=== PATIENT | female | born 1955 | race Caucasian/White ===

== ENCOUNTER 2016-04-18 09:16 | Day surgery (SDC) | payer MEDICAID, SELFPAY ==
[2016-04-18 09:39] VITALS: BP 150/84; PULSE 82; RESP 20; TEMP 36.8; O2SAT 97; BMI 29.1
[2016-04-18] MEDS: MethylPREDNISolone Acetate 80 MG/ML Vial (10:32)
[2016-04-18] MEDS: Bupivacaine 0.25% 30 ML Vial (10:32)
[2016-04-18 10:40] VITALS: BP 138/76; BP 150/84; PULSE 74; RESP 16; TEMP 37.1; O2SAT 100
[2016-04-18 10:45] VITALS: BP 127/68; BP 150/84; PULSE 71; RESP 16; O2SAT 98
[2016-04-18 10:50] VITALS: BP 125/66; BP 150/84; PULSE 75; RESP 16; O2SAT 98
--- NOTE | 2016-04-18 10:50 | RAD_ITS ---
STUDY: SACROILIAC JOINT INJECTION. REASON FOR EXAM: Female, 60 years old. Chronic low back pain. FLUOROSCOPY TIME (if supplied): (0:14) minutes/seconds TECHNIQUE: Bilateral sacroiliac joint injection was performed by the pain management physician. COMPARISON: None. FINDINGS: Imaging provided for bilateral sacroiliac joint injection. RAD/S-I Jts 3 or More Views IMPRESSION: Imaging provided for bilateral iliac joint injection. Electronically Signed: Tae Perez MD at 13:20 EST Tel [phone], Service support [phone],
[2016-04-18 10:53] VITALS: BP 126/75; BP 150/84; PULSE 71; RESP 16; TEMP 37.4; O2SAT 96
[2016-04-18 12:29] VITALS: BP 150/84
--- NOTE | 2016-04-18 16:37 | OP_ITS ---
DATE OF SERVICE: 04/18/2016 DATE OF SERVICE: April 18, 2016 ATTENDING PHYSICIAN: Jose Guadalupe Judge M.D. PROCEDURE: Bilateral sacroiliac joint steroid injection under fluoroscopy guidance. PREOPERATIVE DIAGNOSES: Sacroiliitis and sacroiliac joint dysfunction. POSTOPERATIVE DIAGNOSES: Sacroiliitis and sacroiliac joint dysfunction. ANESTHESIA: MAC. COMPLICATIONS: None. BLOOD LOSS: Minimal. PROCEDURE IN DETAIL: History and physical today was reviewed. Risks and benefits of the procedure were explained. The patient understood, agreed to our procedure and informed consent was obtained. IV inserted per routine protocol. The patient was taken to the operating room, placed in the prone position with a pillow positioned underneath the abdomen. The lower back and buttock area was prepped and draped in a sterile fashion using iodine x3. Under fluoroscopy guidance, on AP view, the bilateral SI joints were visualized. The skin and subcutaneous tissues were anesthetized with approximately 3 mL of 1% lidocaine using a 25-gauge regular needle. Under direct visualization with fluoroscopy at approximately 15-degree angle, starting on the left SI ending on the right SI using a 22-gauge 3-1/2-inch spinal needle, the needle was advanced via the skin. The tip of the needle was maneuvered and directed towards the inferior one-third of the posterior SI joint. Once the tip of the needle was at the vicinity of the joint after negative aspiration of blood with CSF and confirmation of AP as well as oblique view, a total of 8 mL of preservative-free 0.25% Marcaine with 80 mg of Depo-Medrol was injected in divided doses between both levels. The patient experienced no signs or symptoms of intrathecal, intravascular injection. The patient experienced no paraesthesia. The procedure was completed without any apparent difficulty, any complication. The patient appeared to tolerate well. ASSESSMENT AND PLAN: This is a 60-year-old female with sacroiliitis and sacroiliac joint dysfunction, status post bilateral sacroiliac joint steroid injection under fluoroscopy guidance. The patient will continue her current medications. The patient will follow up in approximately 2 weeks for possible repeat of the procedure if indicated. Jose Guadalupe Judge MD T: NTS JOB: [id number]
== END 2016-04-18 12:31 | disposition home or self-care (01) ==
PROVIDERS: Family Provider Family Medicine; PCP Family Medicine; Visit Provider Anesthesiology Pain Medicine
DX: M46.1 Sacroiliitis, not elsewhere classified (principal); M51.36 Other intervertebral disc degeneration, lumbar region; K21.9 Gastro-esophageal reflux disease without esophagitis
CPT/HCPCS: 01992; 27096; 20610; 72202; 77002; J7120

== ENCOUNTER → 2017-10-02 07:54 | Outpatient (CLI) | payer MEDICAID, SELFPAY ==
[2017-10-02 10:24] LABS: Absolute Lymphocyte Count 3.22 X10^3/ul (0.83-4.51); Absolute Neutrophil Count 4.1 X10^3/uL (2.0-7.7); Basophil# 0.08 X10^3/uL; Basophil% 0.9 % (0-1); Eosinophils% 4.7 % (0-5); Hematocrit 40.1 % (37-47); Hemoglobin 12.8 g/dl (12.0-15.0); Lymphocyte # 3.22 X10^3/ul (4.0); Lymphocyte % 37.9 % (19-41); Mean Corp Hgb Conc 31.9 g/gl (32-36); Mean Corpuscular Volume 97.1 fL (81-99); Mean Platelet Vol. 11.5 fl (6.2-12.0); Monocyte# 0.66 X10^3/uL; Monocyte% 7.8 % (0-10); Neutrophil # 4.12 X10^3/uL (2.7-7.7); Neutrophil % 48.6 % (47-70); Platelet Count 299 K/mm3 (150-450); RBC Distribution Width CV 12.6 % (11.6-14.6); RBC Distribution Width SD 44.6 fl (35.1-43.9); Red Blood Count 4.13 M/mm3 (4.2-5.4); White Blood Count 8.5 K/mm3 (4.4-11.0)
[2017-10-02 10:31] LABS: POSITIVE COUNT NO; POSITIVE DIFFERENTIAL NO; POSITIVE MORPHOLOGY NO
[2017-10-02 10:43] LABS: Anion Gap 10 (5-15); BUN 16 mg/dL (7-18); BUN/Creat Ratio 17.8 RATIO (10-20); Calcium,Total 9.1 mg/dL (8.5-10.1); Chloride 104 mmol/L (98-107); EST Glomerular Filtration Rate 68 mL/min (>60); Est Glom Filt Rate - Afr Amer 82 mL/min (>60); Ferritin 95 ng/mL (8-252); Glucose 103 mg/dL (74-106); Iron 60 ug/dL (50-170); Iron Binding Capacity,Total 259 ug/dL (250-450); PERCENT IRON SATURATION 23.2 % (15.0-55.0); Potassium 4.2 mmol/L (3.5-5.1); Sodium Level 143 mmol/L (136-145)
== END ==
PROVIDERS: Family Provider Family Medicine; PCP Family Medicine
DX: D64.9 Anemia, unspecified (principal)
CPT/HCPCS: 36415; 80048; 82728; 83540; 83550; 85025

== ENCOUNTER → 2017-10-12 14:08 | Outpatient (CLI) | payer MEDICAID, SELFPAY ==
[2017-10-12 15:38] LABS: Absolute Lymphocyte Count 2.76 X10^3/ul (0.83-4.51); Absolute Neutrophil Count 5.7 X10^3/uL (2.0-7.7); Basophil# 0.06 X10^3/uL; Basophil% 0.6 % (0-1); Eosinophil# 0.17 X10^3/uL; Eosinophils% 1.8 % (0-5); Hematocrit 42.5 % (37-47); Hemoglobin 13.7 g/dl (12.0-15.0); Lymphocyte # 2.76 X10^3/ul (4.0); Lymphocyte % 29.6 % (19-41); Mean Corp Hgb Conc 32.2 g/gl (32-36); Mean Corpuscular Hgb 31.3 pg (27.0-32.0); Mean Platelet Vol. 12.2 fl (6.2-12.0); Monocyte# 0.58 X10^3/uL; Monocyte% 6.2 % (0-10); Neutrophil # 5.74 X10^3/uL (2.7-7.7); Neutrophil % 61.7 % (47-70); Platelet Count 224 K/mm3 (150-450); RBC Distribution Width CV 12.6 % (11.6-14.6); RBC Distribution Width SD 44.8 fl (35.1-43.9); Red Blood Count 4.38 M/mm3 (4.2-5.4); White Blood Count 9.3 K/mm3 (4.4-11.0)
[2017-10-12 15:46] LABS: POSITIVE COUNT NO; POSITIVE DIFFERENTIAL NO
[2017-10-12 15:47] LABS: POSITIVE MORPHOLOGY NO
[2017-10-12 15:50] LABS: AST(SGOT) 26 U/L (15-37); Alanine Aminotransfer ALT/SGPT 43 U/L (13-56); Albumin, Serum 3.8 g/dL (3.2-5.0); Alkaline Phosphatase 75 U/L (45-117); Anion Gap 9 (5-15); BUN 9 mg/dL (7-18); BUN/Creat Ratio 10.9 RATIO (10-20); Calcium,Total 8.9 mg/dL (8.5-10.1); Chloride 105 mmol/L (98-107); Creatinine, Serum 0.82 mg/dL (0.55-1.02); EST Glomerular Filtration Rate 75 mL/min (>60); Est Glom Filt Rate - Afr Amer 90 mL/min (>60); Globulin 3.7 g/dL (2.2-4.2); Glucose 107 mg/dL (74-106); Potassium 3.9 mmol/L (3.5-5.1); Protein, Total 7.5 g/dL (6.4-8.2); Sodium Level 142 mmol/L (136-145)
== END ==
PROVIDERS: Family Provider Family Medicine; PCP Family Medicine
DX: Z00.01 Encounter for general adult medical examination with abnormal findings (principal)
CPT/HCPCS: 36415; 80053; 85025

== ENCOUNTER 2018-08-31 14:30 | Outpatient (RCR) | payer MEDICAID, SELFPAY ==
--- NOTE | 2018-07-25 15:12 | HP.PTEVAL_ITS ---
Patient's Visit Information ASTER LOMELI is a 63 year old F referred to Physical Therapy by FLORIAN Quiñones with a diagnosis of Intervetebral disc degeneration. Date of Evaluation: 07/25/18 Physical Therapist: Marcos Burr, DADAT, OCS, CSCS - Visit Plan Frequency: 2x /Week Duration: 4-6 Weeks Plan: 2x/week for 4-6 weeks for AT for R LE strength, core strength in NS, and HS/quad stretches. Progress to I water program or home ROM/stretches. - Subjective Findings: Has Deteriorated disc in LB and down R LE and down to foot(foot is recent). Symptoms are pain adn it keeps her up at night as she can't get comfy. Takes pain pills at night adn needs muscle relaxer to sleep. pain has been there since shovelling snow February of this year to the foot. LBp has hurt for years insidiously. No numbness. Treadmill makes her worse, workign outside makes her worse. Wakes up not too bad. Tired. Some days it does not bother her. Does not work as she is on disabiliity with FM, shoulder pain, anxiety. Spends day mowing outside and working in flower beds and weed eating. Cleans and dishes, takes care of animals and these things are getting done but taking longer. Exercises on TM daily walking for 45 minutes and worse when done. - Pain LBP and R LE Pain Intensity (Out of 10): 2 Pain Intensity Range: 0, 7 - Objective Walks slow adn transfers slow and painfully. L/S ext mod limted adn painful, flexion min limited. SB Min limited adn painful. reflexes 2/3 patella and achilles. Sensation WNL to gross light touch in LE. Strength R hip flexion 3+ adn L 4-, ext 3 B, abd 3 R adn 3+ L. knee flexiona dn ext 3+ R adn 4- L. ankles 3+ B. - slump and - SLR. Tightness evident in HS adn quads B. PA p ressure in lower lumbar area evident. - Goals Goal 1:: Pain 2/10 in LB at worst adn amnageable with ex. Goal Time Frame: 4-6 Weeks Goal 2:: Patient feel 50% improved adn be able to sleep without waking due to apin Goal Time Frame: 4-6 Weeks Goal 3:: I approp ex to minimize future problems Goal Time Frame: 4-6 Weeks - Rehabilitation Potential Physical Therapy Diagnosis: LBP disc degeneration. Rehabilitation Potential: Fair - Anticipated Interventions Patient/Client Instruction: Educate patient on: Condition, Plan of Care For the Purpose of:: To decrease pain, To improve muscle performance and motor function, To increase tolerance to activity/condition/position Therapeutic Exercise to Include: Strength training, Flexibilty training, In an aquatic setting, Passive ROM, Active ROM For the Purpose of:: To decrease pain, To improve muscle performance and motor function, To increase tolerance to activity/condition/position, To improve ability of physical actions for home/community/work/leisure, To improve health of tissue Thank you for the opportunity to evaluate your patient. For Medicare and Medicare HMO plans, please review the plan of care and approve it. It will need to be FAXED BACK to us at [phone] for Medicare purposes. For Medicare only, by signing this I certify the plan of care. Please let me know if there are questions or concerns regarding this plan of care. Physician Si gnature: Date:
--- NOTE | 2018-08-31 14:51 | HP.PTDCSUM ---
HP - PT D/C Summary It has been my pleasure to treat ASTER LOMELI under orders from FLORIAN Quiñones, for the diagnosis of Intervetebral disc degeneration for a total of 8 visit(s). Discharge Date: 08/31/18 Please see the following information for a summary of their discharge status. - Subjective Subjective: Had injection on August 10. It helped this time. Pain lately has not been really bad. 3/10 intermittent this week. Hasn't had to use heating pads at night. Sleeping well. Feels stronger adn looser. HEP not yet. Been busy lately. Activtiies at home are oK. Needs to avoid therapy for a little bit due to rash. May be poison festus but it does not itch that much, might be from stress. - Pain LBP and R LE Pain Intensity (Out of 10): 0 - Overall Improvement % Improvement: 80 - Objective Objective/Function: Pt doing better subjectivelya dn moving better. L/S ext min limited with slight discomfort centrally. SB and flexiona re fulla dn without pain today. Walks slow but I. Overall doing much better. However she wishes to take a break from PT despite my encourageent to progress to land based ex or I water program(tooe xpensive for her). she will f/u with doctor in 3 weeks and askto be sent back if pain returns. - Goals Goal 1:: Pain 2/10 in LB at worst adn amnageable with ex. Goal Progress: Goal Met Goal 2:: Patient feel 50% improved adn be able to sleep without waking due to apin Goal Progress: Goal Met Goal 3:: I approp ex to minimize future problems Goal Progress: not yet. - Plan Plan: d/c at patient request. - D/C Information Discharge Comments: Pt request to D/C. Did well in the water but needs a break. Appropriate to be sent back if pain returns for land based management. If there are questions or concerns regarding this patient's physical therapy, please feel free to call me at [phone]. Thank you for the referral of this patient. Sincerely, Marcos Burr, DPT, OCS, CSCS
== END 2018-08-31 19:00 | disposition home or self-care (01) ==
LOC: PT 14:30
PROVIDERS: Referring Provider Nurse Practitioner Family; Visit Provider Nurse Practitioner Family
DX: M53.3 Sacrococcygeal disorders, not elsewhere classified (principal); M51.37 Other intervertebral disc degeneration, lumbosacral region; M54.17 Radiculopathy, lumbosacral region; M79.10 Myalgia, unspecified site; M46.96 Unspecified inflammatory spondylopathy, lumbar region; M46.1 Sacroiliitis, not elsewhere classified; M53.2X8 Spinal instabilities, sacral and sacrococcygeal region; M51.26 Other intervertebral disc displacement, lumbar region
CPT/HCPCS: 97113; 97162; 97530

== ENCOUNTER → 2018-09-26 16:15 | Outpatient (CLI) | payer MEDICAID, SELFPAY ==
--- NOTE | 2018-09-26 16:17 | MRI_ITS ---
STUDY: MRI LUMBAR SPINE WITHOUT CONTRAST REASON FOR EXAM: Female, 63 years old. Low back pain radiating down right leg TECHNIQUE: Standardized fat and water weighted pulse sequences were obtained in the sagittal and axial planes. COMPARISON: August 24, 2015 FINDINGS: No evidence for acute fracture or subluxation however there is mild bone marrow edema within the pedicles of L5 bilaterally which may be consistent with stress-related injury T12-L1: Normal endplates. Normal disc height, hydration and morphology. Normal bilateral facet joints. Normal central canal and bilateral lateral recesses. Normal bilateral intervertebral neural foramina. Normal lumbar lordosis. There is no substantial scoliosis. Normal conus medullaris that terminates at T12-L1 L1-2: Normal endplates. Normal disc height, hydration and morphology. Normal bilateral facet joints. Normal central canal and bilateral lateral recesses. Normal bilateral intervertebral neural foramina. L2-3: Normal endplates. Normal disc height, hydration and morphology. Normal bilateral facet joints. Normal central canal and bilateral lateral recesses. Normal bilateral intervertebral neural foramina. L3-4: Normal endplates. Normal disc height, desiccation and minor annular bulge with small bilateral foraminal disc protrusions.. Normal bilateral facet joints. Normal central canal and bilateral lateral recesses. Mild bilateral neural foraminal encroachment. L4-5: Grade 1 spondylolisthesis. Normal endplates. Normal disc height, desiccation and minor bulging disc osteophyte complex.. Facet arthropathy and thickening of ligamenta flava.. Normal central canal and bilateral lateral recesses. Moderate bilateral neuroforaminal stenosis exaggerated by shortened pedicles L5-S1: Normal endplates. Normal disc height, desiccation and minimal annular bulge.. Bilateral facet arthropathy.. Normal central canal and bilateral lateral recesses. Normal bilateral intervertebral neural foramina. Normal visualized sacral ala. Normal visualized paraspinous soft tissue structures. MRI/Spine Lumbar (Routine) IMPRESSION: Findings consistent with stress type injury of the bilateral pedicles at L5 Spinal stenosis at L4-5 secondary to bulging annulus and facet arthropathy with thickening of ligamenta flava exaggerated by shortened pedicles Minor bilateral neuroforaminal stenosis at L3-4 secondary to small foraminal disc protrusions Electronically Signed: Jose Guadalupe Hernandez MD at 19:23 EDT , Service support ,
== END ==
PROVIDERS: Referring Provider Nurse Practitioner Family; Visit Provider Nurse Practitioner Family
DX: M46.96 Unspecified inflammatory spondylopathy, lumbar region (principal); M51.37 Other intervertebral disc degeneration, lumbosacral region; M51.26 Other intervertebral disc displacement, lumbar region; M54.17 Radiculopathy, lumbosacral region; M47.817 Spondylosis without myelopathy or radiculopathy, lumbosacral region
CPT/HCPCS: 72148

== ENCOUNTER → 2018-10-15 11:13 | Outpatient (CLI) | payer MEDICAID, SELFPAY ==
[2018-10-15 10:50] VITALS: BMI 29.1
[2018-10-15 12:18] LABS: Absolute Lymphocyte Count 2.71 X10^3/uL (0.83-4.51); Basophil# 0.07 X10^3/uL; Basophil% 0.6 % (0-1); Eosinophil# 0.09 X10^3/uL; Eosinophils% 0.8 % (0-5); Hematocrit 46.8 % (37-47); Hemoglobin 15.3 g/dL (12.0-15.0); Lymphocyte # 2.71 X10^3/ul (4.0); Mean Corp Hgb Conc 32.7 g/dL (32-36); Mean Corpuscular Hgb 31.5 pg (27.0-32.0); Mean Corpuscular Volume 96.5 fL (81-99); Mean Platelet Vol. 11.2 fl (6.2-12.0); Monocyte# 0.93 X10^3/uL; Monocyte% 8.6 % (0-10); NRBC Flagged by Analyzer 0 % (0-5); Neutrophil # 6.99 X10^3/uL (2.7-7.7); Neutrophil % 64.4 % (47-70); Platelet Count 253 K/mm3 (150-450); RBC Distribution Width CV 11.9 % (11.6-14.6); RBC Distribution Width SD 41.9 fl (35.1-43.9); Red Blood Count 4.85 M/mm3 (4.2-5.4); White Blood Count 10.9 K/mm3 (4.4-11.0)
[2018-10-15 12:30] LABS: ALB/GLOB Ratio 0.9 RATIO (0.9-2.4); AST(SGOT) 39 U/L (15-37); Alanine Aminotransfer ALT/SGPT 95 U/L (13-56); Albumin, Serum 3.8 g/dL (3.2-5.0); Alkaline Phosphatase 104 U/L (45-117); Anion Gap 5 (5-15); BUN 11 mg/dL (7-18); BUN/Creat Ratio 13.2 RATIO (10-20); Calcium,Total 9.6 mg/dL (8.5-10.1); Chloride 105 mmol/L (98-107); Creatinine, Serum 0.83 mg/dL (0.55-1.02); EST Glomerular Filtration Rate 74 mL/min (>60); Est Glom Filt Rate - Afr Amer 89 mL/min (>60); Globulin 4.2 g/dL (2.2-4.2); Glucose 86 mg/dL (74-106); Potassium 4.7 mmol/L (3.5-5.1); Sodium Level 141 mmol/L (136-145)
== END ==
PROVIDERS: PCP Internal Medicine; Visit Provider Internal Medicine
DX: K21.9 Gastro-esophageal reflux disease without esophagitis (principal); K57.92 Diverticulitis of intestine, part unspecified, without perforation or abscess without bleeding
CPT/HCPCS: 36415; 80053; 85025

== ENCOUNTER → 2018-11-05 10:49 | Outpatient (CLI) | payer MEDICAID, SELFPAY ==
[2018-11-05 10:29] VITALS: BMI 29.1
[2018-11-05 10:51] LABS: Bacteria 0 SEEN /hpf (None Seen); Mucous, Urine 0 SEEN /hpf (<or=2+); Red Blood Cells-Urine 0 SEEN /hpf (0-5); Squamous Epithelial Cells - UA 0 SEEN /hpf (5-10); White Blood Cells 0 SEEN /hpf (0-5)
[2018-11-05 12:33] LABS: Color, Urine Yellow (Yellow); Glucose, Dipstick Normal (Normal); Ketone-Dipstick Negative (Negative); Leukocyte Esterase-Dipstick Negative /ul (Negative); Nitrite-Dipstick Negative (Negative); Occult Blood-Urine Negative /ul (Negative); Protein-Dipstick Negative (Negative); Specific Gravity, Urine 1.005 (1.002-1.030); Urine Bilirubin Dipstick Negative (Negative); Urine Clarity Clear (Clear); Urine Urobilinogen Normal (Normal)
== END ==
PROVIDERS: PCP Internal Medicine; Visit Provider Internal Medicine
DX: R35.0 Frequency of micturition (principal)
CPT/HCPCS: 81001; 87086; 87088

== ENCOUNTER → 2018-12-11 09:03 | Outpatient (CLI) | payer MEDICAID, SELFPAY ==
[2018-11-22 13:25] VITALS: BMI 30.5
--- NOTE | 2018-12-11 09:05 | US_ITS ---
STUDY: ABDOMINAL ULTRASOUND - RIGHT UPPER QUADRANT REASON FOR VISIT: Female, 63 years old elevated LFTs TECHNIQUE: Ultrasound evaluation of the right upper quadrant was performed with real-time and static machado-scale imaging. TECHNICAL QUALITY: Adequate. COMPARISON: None. FINDINGS: Liver: The liver measures 17.1 cm. There is increased echogenicity consistent with fatty infiltration. The bile ducts are within normal limits. There is hepatic color flow. The direction of portal flow is hepatopetal. There is no demonstrated mass lesion. Gallbladder: The patient is status post cholecystectomy. Common Bile Duct (C.B.D.): The common bile duct measures 2.9 mm. Pancreas: Normal size of the head, body and tail of the pancreas. There is increased echogenicity of the pancreas. There is no demonstrated pancreatic mass or cyst. Right Kidney: Normal size of the right kidney. The right kidney measures 9.9 x 5.3 x 3.9 cm. Normal renal cortex. The right cortex measures 1.2 cm. There is no demonstrated renal mass or cyst. There is no right hydronephrosis. US/Abdomen Limited IMPRESSION: Fatty infiltration of the liver, no discrete lesion Previous cholecystectomy Electronically Signed: Elian Partida MD at 11:21 EDT , Service support ,
== END ==
PROVIDERS: Family Provider Internal Medicine; PCP Internal Medicine; Referring Provider Internal Medicine; Visit Provider Internal Medicine
DX: R94.5 Abnormal results of liver function studies (principal)
CPT/HCPCS: 76705

== ENCOUNTER → 2018-12-26 10:28 | Outpatient (CLI) | payer MEDICAID, SELFPAY ==
[2018-11-22 13:25] VITALS: BMI 30.5
[2018-12-26 11:36] LABS: Absolute Lymphocyte Count 2.37 X10^3/uL (0.83-4.51); Absolute Neutrophil Count 3.2 X10^3/uL (2.0-7.7); Basophil# 0.06 X10^3/uL; Eosinophil# 0.13 X10^3/uL; Eosinophils% 2.1 % (0-5); Hematocrit 44.4 % (37-47); Hemoglobin 14.6 g/dL (12.0-15.0); Lymphocyte # 2.37 X10^3/ul (4.0); Lymphocyte % 38.2 % (19-41); Mean Corp Hgb Conc 32.9 g/dL (32-36); Mean Corpuscular Hgb 31.3 pg (27.0-32.0); Mean Corpuscular Volume 95.1 fL (81-99); Monocyte# 0.47 X10^3/uL; Monocyte% 7.6 % (0-10); NRBC Flagged by Analyzer 0 % (0-5); Neutrophil # 3.17 X10^3/uL (2.7-7.7); Neutrophil % 50.9 % (47-70); Platelet Count 208 K/mm3 (150-450); RBC Distribution Width CV 12.1 % (11.6-14.6); RBC Distribution Width SD 42.3 fl (35.1-43.9); Red Blood Count 4.67 M/mm3 (4.2-5.4); White Blood Count 6.2 K/mm3 (4.4-11.0)
[2018-12-26 11:45] LABS: International Normalized Ratio 1.1; Partial Thromboplast Time 34.2 Seconds (24.1-36.2); Prothrombin Time (Protime)PT. 14.1 SECONDS (11.7-14.9)
[2018-12-26 12:11] LABS: AST(SGOT) 18 U/L (15-37); Alanine Aminotransfer ALT/SGPT 28 U/L (13-56); Albumin, Serum 3.8 g/dL (3.2-5.0); Alkaline Phosphatase 69 U/L (45-117); Anion Gap 7 (5-15); BUN 12 mg/dL (7-18); BUN/Creat Ratio 14.1 RATIO (10-20); Bilirubin, Direct 0.14 mg/dL (0.00-0.30); Calcium,Total 8.9 mg/dL (8.5-10.1); Chloride 105 mmol/L (98-107); Cholesterol 167 mg/dL (200); Creatinine, Serum 0.85 mg/dL (0.55-1.02); EST Glomerular Filtration Rate 71 mL/min (>60); Est Glom Filt Rate - Afr Amer 86 mL/min (>60); Ferritin 131 ng/mL (8-252); GGTP 14 U/L (5-55); Globulin 3.9 g/dL (2.2-4.2); Glucose 95 mg/dL (74-106); High Density Lipoprotein 42 mg/dL; Iron 118 ug/dL (50-170); Iron Binding Capacity,Total 275 ug/dL (250-450); Potassium 3.7 mmol/L (3.5-5.1); Protein, Total 7.7 g/dL (6.4-8.2); Sodium Level 140 mmol/L (136-145); T4 Total, Thyroxin 9.8 ug/dL (4.8-13.9); Thyroid Stim Hormone (TSH) 1.03 uIU/mL (0.358-3.74); Triglycerides 170 mg/dL; Very Low Density Lipoprotein 34 mg/dL (5-40)
[2018-12-26 12:52] LABS: Hepatitis B Surface Antibody Non-Reactive; Hepatitis B Surface Antigen Non-Reactive (Nonreactive); Hepatitis C Antibody Non-Reactive (Nonreactive); Vitamin B12 860 pg/mL (211-911); Vitamin D,25 Hydroxy 39.2 ng/mL (29.95-100.01)
[2018-12-27 20:07] LABS: ANTINUCLEAR ANTIBODIES DIRECT Negative (Negative)
[2018-12-27 21:33] LABS: Alpha Antitrypsin Serum 126 mg/dL (101-187); Anti-Mitochondrial AB <20.0 Units (0.0-20.0)
[2018-12-28 20:07] LABS: Alkaline Phosphatase, Serum 66 IU/L (39-117); Bone Fraction 52 % (14-68); Ceruloplasmin 21.5 mg/dL (19.0-39.0); Hepatitis B Core Ab Total Negative (Negative); Immunoglobulin A 416 mg/dL (87-352); Intestinal Fraction 0 % (0-18); Liver Fraction 48 % (18-85); PROEL- A/G Ratio 1.2 (0.7-1.7); PROEL- Alpha-1 Globulin 0.3 g/dL (0.0-0.4); PROEL- Alpha-2 Globulin 0.6 g/dL (0.4-1.0); PROEL- Beta Globulin 1.3 g/dL (0.7-1.3); PROEL- Gamma Globulin 1.3 g/dL (0.4-1.8); PROEL- Globulin, Total 3.4 g/dL (2.2-3.9); PROEL- TOTAL PROTEIN 7.4 g/dL (6.0-8.5)
[2018-12-29 13:30] LABS: AFP, Tumor Marker 2.4 ng/mL (0.0-8.3); Anti-Smooth Muscle ABS 10 Units (0-19); EBV Acute VCA IgM < 36.0 U/mL (0.0-35.9); EBV Early Antigen IgG <9.0 U/mL (0.0-8.9); Hepatitis A AB, Total Negative (Negative); Vitamin A, Retinol 44.6 ug/dL (22.0-69.5); t-Transglutaminase IgA <2 U/mL (0-3)
== END ==
PROVIDERS: Family Provider Internal Medicine; PCP Internal Medicine
DX: R53.83 Other fatigue (principal); R94.5 Abnormal results of liver function studies
CPT/HCPCS: 36415; 80048; 80061; 80076; 82103; 82105; 82306; 82390; 82607; 82728; 82784; 82977; 83516; 83540; 83550; 84075; 84080; 84165; 84436; 84443; 84590; 85025; 85610; 85730; 86038; 86644; 86663; 86664; 86665; 86704; 86706; 86708; 86803; 87340

== ENCOUNTER → 2019-03-13 10:56 | Outpatient (CLI) | payer MEDICAID, SELFPAY ==
[2018-11-22 13:25] VITALS: BMI 30.5
--- NOTE | 2019-03-13 11:01 | RAD_ITS ---
STUDY: X-RAY - CERVICAL SPINE REASON FOR EXAM: Female, 63 years old. Upper extremity radiculopathy. No known injury. TECHNIQUE: 5 view(s) of the cervical spine were obtained on 6 images. Oblique images are nondiagnostic. COMPARISON: None FINDINGS: Osteopenia. Normal anterior atlantoaxial articulation. Normal odontoid process. Normal cervical lordosis. Normal vertebral bodies and endplates. Intervertebral disc space narrowing at C4-5, C5-6 and C6-7 with small osteophytes at C5-6 and C6-7. Diffuse uncovertebral and facet sclerosis. The soft tissue structures are unremarkable. RAD/Cerv Spine 4 or 5 Views IMPRESSION: Osteopenia with cervical spondylosis most pronounced at C4-5, C5-6 and C6-7. Electronically Signed: Heri Medeiros MD at 17:52 EST , Service support ,
== END ==
PROVIDERS: Family Provider Internal Medicine; PCP Internal Medicine; Referring Provider Nurse Practitioner Family; Visit Provider Nurse Practitioner Family
DX: M54.12 Radiculopathy, cervical region (principal)
CPT/HCPCS: 72050

== ENCOUNTER → 2019-08-28 14:32 | Outpatient (CLI) | payer MEDICAID, SELFPAY ==
[2019-08-28 13:40] VITALS: BMI 30.5
[2019-08-28 15:42] LABS: Absolute Lymphocyte Count 2.84 X10^3/uL (0.83-4.51); Absolute Neutrophil Count 4.7 X10^3/uL (2.0-7.7); Basophil# 0.07 X10^3/uL; Basophil% 0.8 % (0-1); Eosinophil# 0.21 X10^3/uL; Eosinophils% 2.5 % (0-5); Hematocrit 46.4 % (37-47); Hemoglobin 14.8 g/dL (12.0-15.0); Lymphocyte # 2.84 X10^3/ul (4.0); Mean Corp Hgb Conc 31.9 g/dL (32-36); Mean Corpuscular Hgb 31.3 pg (27.0-32.0); Mean Corpuscular Volume 98.1 fL (81-99); Monocyte# 0.56 X10^3/uL; Monocyte% 6.7 % (0-10); NRBC Flagged by Analyzer 0 % (0-5); Neutrophil # 4.66 X10^3/uL (2.7-7.7); Neutrophil % 55.8 % (47-70); Platelet Count 166 K/mm3 (150-450); RBC Distribution Width CV 11.9 % (11.6-14.6); RBC Distribution Width SD 42.7 fl (35.1-43.9); Red Blood Count 4.73 M/mm3 (4.2-5.4); White Blood Count 8.4 K/mm3 (4.4-11.0)
[2019-08-28 16:07] LABS: ALB/GLOB Ratio 1.1 RATIO (0.9-2.4); AST(SGOT) 25 U/L (15-37); Alanine Aminotransfer ALT/SGPT 37 U/L (13-56); Albumin, Serum 4.2 g/dL (3.2-5.0); Alkaline Phosphatase 106 U/L (45-117); Anion Gap 10 (5-15); BUN 12 mg/dL (7-18); BUN/Creat Ratio 15.6 RATIO (10-20); CRP 3.65 mg/L (0.0-3.0); Calcium,Total 8.8 mg/dL (8.5-10.1); Chloride 105 mmol/L (98-107); Creatinine, Serum 0.77 mg/dL (0.55-1.02); EST Glomerular Filtration Rate 81 mL/min (>60); Est Glom Filt Rate - Afr Amer 97 mL/min (>60); Globulin 3.7 g/dL (2.2-4.2); Glucose 90 mg/dL (74-106); Potassium 3.8 mmol/L (3.5-5.1); Protein, Total 7.9 g/dL (6.4-8.2); Rheumatoid Factor < 10.0 IU/mL (<15); Sodium Level 140 mmol/L (136-145)
[2019-08-28 16:30] LABS: Erythrocyte Sedimentation Rate 14 mm/hr (0-30)
== END ==
PROVIDERS: PCP Internal Medicine; Referring Provider Internal Medicine; Visit Provider Internal Medicine
DX: M06.9 Rheumatoid arthritis, unspecified (principal); K21.9 Gastro-esophageal reflux disease without esophagitis; F41.9 Anxiety disorder, unspecified; F32.9 Major depressive disorder, single episode, unspecified
CPT/HCPCS: 36415; 80053; 85025; 85652; 86140; 86431

== ENCOUNTER 2019-11-22 07:25 | Day surgery (SDC) | payer MEDICAID, SELFPAY ==
[2019-08-28 13:40] VITALS: BMI 30.5
[2019-11-12 14:25] VITALS: BMI 30.5
[2019-11-15 13:34] LABS: Hematocrit 42.3 % (37-47); Hemoglobin 14.1 g/dL (12.0-15.0); Mean Corp Hgb Conc 33.3 g/dL (32-36); Mean Corpuscular Hgb 31.4 pg (27.0-32.0); Mean Corpuscular Volume 94.2 fL (81-99); Mean Platelet Vol. 11.2 fl (6.2-12.0); Platelet Count 250 K/mm3 (150-450); RBC Distribution Width CV 11.9 % (11.6-14.6); RBC Distribution Width SD 41.7 fl (35.1-43.9); Red Blood Count 4.49 M/mm3 (4.2-5.4); White Blood Count 8.6 K/mm3 (4.4-11.0)
[2019-11-15 14:13] LABS: Anion Gap 8 (5-15); BUN 13 mg/dL (7-18); BUN/Creat Ratio 12.3 RATIO (10-20); Calcium,Total 8.9 mg/dL (8.5-10.1); Chloride 103 mmol/L (98-107); Creatinine, Serum 1.06 mg/dL (0.55-1.02); EST Glomerular Filtration Rate 55 mL/min (>60); Est Glom Filt Rate - Afr Amer 67 mL/min (>60); Glucose 103 mg/dL (74-106); Potassium 4.1 mmol/L (3.5-5.1); Sodium Level 138 mmol/L (136-145)
[2019-11-22] VITALS (9 sets, daily range): BP systolic 106–133; BP diastolic 51–89; PULSE 57–74; RESP 16–18; TEMP 36.2–36.5; O2SAT 91–99; BMI 29.2
[2019-11-22] MEDS: Lactated Ringers 1,000 ML 100 ML IV ×2 (08:27→11:29)
[2019-11-22] MEDS: Cefazolin 1 GM/50 ML BAG IV (09:05)
--- NOTE | 2019-11-22 10:45 | PCM.OP.PRO ---
Procedure Report Date of Procedure: 11/22/19 Preoperative diagnosis: Right shoulder rotator cuff tear, impingement syndrome Postoperative diagnosis: Same plus SLAP tear Procedure: Right shoulder arthroscopic SLAP debridement, arthroscopic subacromial decompression, rotator cuff repair Surgeon: Dr. Alan Martin Clam Dredger: Rose Shabazz PA-C Anesthesia: Dr. Castillo, general with scalene nerve block preoperatively Antibiotics: Ancef Complications: None EBL: Less than 20 Indications for surgery: Patient is a 64-year-old female with history of right shoulder problems. She had previous shoulder surgery including arthroscopic, SLAP repair. She has had injuries. She failed conservative measures. MRI showed rotator cuff tear. She also had impingement pain. She wished to have surgery. Appropriate informed consent was obtained and signed Findings: Full-thickness rotator cuff tear of the supraspinatus tendon, type II acromion with AC joint bone spurs inferiorly, SLAP tear, stable biceps tendon She underwent arthroscopic debridement of the SLAP tear, arthroscopic subacromial decompression, arthroscopic rotator cuff repair using Arthrex 6.2 mm anchor with a fiber tape suture in a horizontal mattress fashion. miller head assistant wet process, physician administrative personal assistant was utilized throughout the entire procedure. She help with patient positioning. Holding the limb holding of retractors. She help with appropriate exposure throughout the procedure. Sharp with suture passing. She help with implantation of anchor. Wound closure bandage application sling application. Without registered nurse surgical services surgical time would have been increased and surgical outcome could have been less optimal Procedure: Patient was taken to the operating room and transferred to the OR table. She had been given an interscalene nerve block preoperatively. She was placed under general anesthetic. Ancef was given IV preoperatively. Appropriate timeouts performed. She was placed in the Martin beachchair positioner. Right shoulder had full range of motion. Right shoulder and upper extremity were prepped padded draped in usual orthopedic sterile fashion for the procedure. We began by making a posterior portal through skin with a knife dull trocar took me into the joint while the administrative personal assistant distracted the humeral head laterally. We atraumatically entered the glenohumeral joint. We noted intact biceps anchor. We noted a SLAP tear anterior to the biceps anchor. We noted arthritis of the glenohumeral joint. There was some fraying of the rotator cuff just posterior to the biceps groove. Did not identify a full-thickness tear at this point. Pictures were taken. Anterior portal was established with a knife followed by dull trocar to command the joint. We probed the biceps anchor. We probed the SLAP tear. We probed the glenohumeral joint and rotator cuff. Shaver was brought into debride the SLAP tear and lightly debride the glenoid. Pictures were taken. We now went to the subacromial space and established a lateral portal. This was taken through skin with a knife. Dull trocar took me into the subacromial space. We performed a decompression using a werewolf debrider on the undersurface acromion. The abundant soft tissue was resected. Acromioplasty was carried out with a shaver as well as a bur making the acromion flat from front to back side to side extending underneath the lateral clavicle which was bulbous. We now could fully visualize the rotator cuff from superiorly. On probing it there was a full-thickness tear just posterior , lateral to the biceps. Was lightly debrided with a shaver bringing us back to healthy full-thickness rotator cuff tissue. We also used the shaver and bur on the greater tuberosity to freshen the bone at the repair site. We then used a tendon grasper to mobilize the tendon adequately which was done. Next the fiber tape suture was placed through a portal that was placed with a plastic cannula through a lateral portal. We passed 1 limb through the anterior portion of the tear and out anteriorly. The other limb was placed through the posterior portion of the tear making a horizontal mattress suture. Both limbs were now placed through the cannula and the tendon mobilized nicely. We started with a 4.75 millimeters anchor that did not have adequate purchase in bone. This was removed. We now used a 6.5 meter anchor which had excellent purchase in bone and stabilize the tendon nice to his repair site. For cut off above the anchor. Site was visualized with shoulder in internal and external rotation in good repair was noted. Adequate decompression was still noted. Shoulder was drained of the excess fluid. Arthroscopic instruments removed. Portals were closed with simple and horizontal mattress sutures. Arm sling was applied. ABD was placed in the axilla. Patient will be discharged home today. Passive shoulder motion for 6 weeks. Adequate pain medication prescribed. She will follow-up in the office in 7 to 10 days. Ancef was used as a perioperative antibiotic 2 g IV. This note was generated with [employer] software. It may contain incorrect words, spelling, and punctuation that were not noted in checking the note before signing.
== END 2019-11-22 13:26 | disposition home or self-care (01) ==
LOC: SDC 07:27 → AC 07:27
PROVIDERS: Anesthesiology; PCP Internal Medicine; Referring Provider Orthopaedic Surgery; Visit Provider Orthopaedic Surgery
PROC: (CPT 29827; principal; 2019-11-22 08:45)
DX: M75.101 Unspecified rotator cuff tear or rupture of right shoulder, not specified as traumatic (principal); S43.431D Superior glenoid labrum lesion of right shoulder, subsequent encounter; W19.XXXD Unspecified fall, subsequent encounter; K21.9 Gastro-esophageal reflux disease without esophagitis
CPT/HCPCS: 01630; 29826; 29827; 64450; 36415; 80048; 85027; 87635; 93005; C9803; J7120; J2405; U0003

== ENCOUNTER → 2020-01-03 10:12 | Outpatient (CLI) | payer MEDICAID, SELFPAY ==
[2019-11-22 08:20] VITALS: BMI 29.2
== END ==
PROVIDERS: PCP Internal Medicine; Referring Provider Nurse Practitioner Family; Visit Provider Nurse Practitioner Family
DX: Z20.828 Contact with and (suspected) exposure to other viral communicable diseases (principal); J02.9 Acute pharyngitis, unspecified
CPT/HCPCS: 87635; C9803; U0003

== ENCOUNTER 2020-03-31 10:00 | Outpatient (RCR) | payer MEDICAID, SELFPAY ==
[2019-11-22 08:20] VITALS: BMI 29.2
--- NOTE | 2019-12-03 09:53 | HP.PTEVAL ---
Patient's Visit Information ASTER LOMELI is a 64 year old F referred to Physical Therapy by JORDYN Martinez with a diagnosis of R RC strain and bursitis, s/p RCR around 11/22. Date of Evaluation: 12/03/19 Physical Therapist: Marcos Burr, DADAT, OCS, CSCS - Visit Plan Frequency: 3x /Week Duration: 3 Months Plan: 3x/week(pt has no one to move arm passively at home and does not get visitors. x 4 weeks to start. PROM R shoulder, AROM scapula and elbow. Should be phase one PROM until around 12/21 then progress to phase 2 based on tolerance. shelter will need strengthening and return to function also. May use mobs grade 1 for pain control and ice. - Subjective Dr. Martin fixed her R torn RC. 1.5 weeks ago around 11/22. Not sure how it was torn. Surgery went well. Prior to surgery was very painful and could not lift it. Hard to sleep. Injections helped a little but not enough. The last week and a half has been learning how to use L as she is R handed. Live alone. Pain level is not real bad0-04/08. Doing pendulum at home. Sleeping pretty well in a couch. In sling all the time except for ex. Basic Dressing OK but slow. Doing some prepared meals for [employer]. Spends day watching TV adn walking here and there and did steps to basement to do laundry. Leans L hand basket on rail. Activities normally include gardening and fish and animals which her dtr is currently taking care of. Likes [employer] study and did that yesterday. Not driving yet due to surgery. - Pain R shoulder Pain Intensity (Out of 10): 1 Pain Intensity Range: 0, 3 - Objective Comes in with sling on and button dwon shirt, dons and doffs I. Walks I, trasnfers I supine adn sit. Incisions arthroscopic healed well without excessive redness heat or swelling.. Mild scar tissue in central incision. scapular AROM limited elevationand retraction on R vs left maximally. Elbow flexion and ext AROM R limited by 5 degrees end range flexion, painful elbow for PROM which can be full. Hand, wrist and fingers moving well. Strength not tested today. R shoulder PROM ext rotation 20, flexion 75 and abd 77, ll limited by pain. Pt was woen up by full service vending driver today adn did not take pain meds til late. - Goals Goal 1:: ST goals full PROM 150 elevationa nd 70 ext rotation Goal Time Frame: 2-4 Weeks Goal 2:: ST: walk around confidently without sling wehn allowed by doctor Goal Time Frame: 4-6 Weeks Goal 3:: Full aROM R UE Goal Time Frame: 6-8 Weeks Goal 4:: Return to baking and taking care of animals full activity Goal Time Frame: 8-12 Weeks Goal 5:: I appropriate management of condition Goal Time Frame: 8-12 Weeks - Rehabilitation Potential Physical Therapy Diagnosis: s/p RCR approx 11/22 Rehabilitation Potential: Fair - Anticipated Interventions Patient/Client Instruction: Educate patient on: Condition, Plan of Care For the Purpose of:: To decrease pain, To improve nutrient delivery to tissue, To increase tolerance to activity/condition/position Therapeutic Exercise to Include: Passive ROM For the Purpose of:: To decrease pain, To increase ROM Manual Therapy Techniques to Include: Mobilization, Passive ROM For the Purpose of:: To increase ROM Cryotherapy (ice pack, ice massage): Yes For the Purpose of:: To decrease pain, To decrease swelling/inflammation Thank you for the opportunity to evaluate your patient. For Medicare and Medicare HMO plans, please review the plan of care and approve it. It will need to be FAXED BACK to us at [phone] for Medicare purposes. For Medicare only, by signing this I certify the plan of care. Please let me know if there are questions or concerns regarding this plan of care. Physician Signature: Date:
--- NOTE | 2019-12-27 10:23 | HP.PTREVAL ---
JORDYN Martinez, It has been my pleasure to treat ASTER LOMELI over the last 9 visits for R RC strain and bursitis, s/p RCR around 11/22. Please see the progress note below for an update on the physical therapy plan of care! Subjective: No pain at rest. Exercises cause some transient soreness. Sling on to enter adn able to get on and off by herself. Icing at home regularly. Sleep is fine. In sling all day and sees doctor this . Objective/Function: AAROM: 52 ext rotation stick, 128 flexion, abd. PROM flexion 145, abd 110, ext rotation 60, IR 35 at 80 abd. Doing well with slow progression of AAROM Plan Plan: 2x/week for 4-6 weeks for progression through phase 2 and phase 3 when full aROM without discomfort.(mid December to end). POC still apprpriate with fair prognosis Goals Goal 1:: ST goals full PROM 150 elevationa nd 70 ext rotation Goal Time Frame: 2-4 Weeks Goal Progress: Progressing Goal 2:: ST: walk around confidently without sling wehn allowed by doctor Goal Time Frame: 4-6 Weeks Goal Progress: in clinic Goal 3:: Full aROM R UE Goal Time Frame: 6-8 Weeks Goal Progress: Progressing Goal 4:: Return to baking and taking care of animals full activity Goal Time Frame: 8-12 Weeks Goal 5:: I appropriate management of condition Goal Time Frame: 8-12 Weeks Anticipated Interventions Patient/Client Instruction: Educate patient on: Condition, Plan of Care For the Purpose of:: To decrease pain, To improve nutrient delivery to tissue, To increase tolerance to activity/condition/position Therapeutic Exercise to Include: Passive ROM For the Purpose of:: To decrease pain, To increase ROM Manual Therapy Techniques to Include: Mobilization, Passive ROM For the Purpose of:: To increase ROM Cryotherapy (ice pack, ice massage): Yes For the Purpose of:: To decrease pain, To decrease swelling/inflammation Please do not hesitate to contact me at [phone] by phone or if you have questions or concerns regarding this new plan of care! Sincerely, Marcos Burr, DPT, OCS, CSCS
--- NOTE | 2020-01-30 11:49 | HP.PTREVAL ---
JORDYN Martinez, It has been my pleasure to treat ASTER LOMELI over the last 15 visits for R RC strain and bursitis, s/p RCR around 11/22. Please see the progress note below for an update on the physical therapy plan of care! Subjective: Pain has not been too bad. Most pain is with exercises and weather changes. Shoulder is OK otherwise. Sleeping well. Did exercises 1x/day. Objective/Function: 148 AROM flexion and 145 abduction with just gentle end range of motion pain. 60 external rotation R and 70 L. Doing well with pain and ROM, pt under doctors orders, does nto want to strengthen until f/u with bands. New goal set for strengthening wehn appropriate and fair prognosis. Other goals still appropriate over next 4 -6 weeks. Plan Plan: Will f/u after 02/12 doctor check for progression to strengthening and likely spend 3-4 visits teaching and progressing these via HEP. Goals Goal 1:: ST goals full PROM 150 elevationa nd 70 ext rotation Goal Time Frame: 2-4 Weeks Goal Progress: Progressing Goal 2:: ST: walk around confidently without sling wehn allowed by doctor Goal Time Frame: 4-6 Weeks Goal Progress: in clinic Goal 3:: Full aROM R UE Goal Time Frame: 6-8 Weeks Goal Progress: Progressing Goal 4:: Return to baking and taking care of animals full activity Goal Time Frame: 8-12 Weeks Goal Progress: Progressing Goal 5:: I appropriate management of condition Goal Time Frame: 8-12 Weeks Goal Progress: Progressing Goal 6:: I strengthening exercises via HEP Goal Time Frame: 4-6 Weeks Goal Progress: NEW GOAL Anticipated Interventions Patient/Client Instruction: Educate patient on: Condition, Plan of Care For the Purpose of:: To decrease pain, To improve nutrient delivery to tissue, To increase tolerance to activity/condition/position Therapeutic Exercise to Include: Passive ROM For the Purpose of:: To decrease pain, To increase ROM Manual Therapy Techniques to Include: Mobilization, Passive ROM For the Purpose of:: To increase ROM Cryotherapy (ice pack, ice massage): Yes For the Purpose of:: To decrease pain, To decrease swelling/inflammation Please do not hesitate to contact me at [phone] by phone or if you have questions or concerns regarding this new plan of care! Sincerely, Marcos Burr, DPT, OCS, CSCS
--- NOTE | 2020-01-30 11:50 | HP.PTREVAL ---
JORDYN Martinez, It has been my pleasure to treat ASTER LOMELI over the last 15 visits for R RC strain and bursitis, s/p RCR around 11/22. Please see the progress note below for an update on the physical therapy plan of care! Subjective: Pain has not been too bad. Most pain is with exercises and weather changes. Shoulder is OK otherwise. Sleeping well. Did exercises 1x/day. Objective/Function: 148 AROM flexion and 145 abduction with just gentle end range of motion pain. 60 external rotation R and 70 L. 150 elevation after stretching. strength IR/er 3+ R and 4- L. flexiona nd abduction 3+ R adn 4- L. Doing well with pain and ROM, pt under doctors orders, does nto want to strengthen until f/u with bands. New goal set for strengthening wehn appropriate and fair prognosis. Other goals still appropriate over next 4 -6 weeks. Plan Plan: Will f/u after 02/12 doctor check for progression to strengthening and likely spend 3-4 visits teaching and progressing these via HEP. Goals Goal 1:: ST goals full PROM 150 elevationa nd 70 ext rotation Goal Time Frame: 2-4 Weeks Goal Progress: Progressing Goal 2:: ST: walk around confidently without sling wehn allowed by doctor Goal Time Frame: 4-6 Weeks Goal Progress: in clinic Goal 3:: Full aROM R UE Goal Time Frame: 6-8 Weeks Goal Progress: Progressing Goal 4:: Return to baking and taking care of animals full activity Goal Time Frame: 8-12 Weeks Goal Progress: Progressing Goal 5:: I appropriate management of condition Goal Time Frame: 8-12 Weeks Goal Progress: Progressing Goal 6:: I strengthening exercises via HEP Goal Time Frame: 4-6 Weeks Goal Progress: NEW GOAL Anticipated Interventions Patient/Client Instruction: Educate patient on: Condition, Plan of Care For the Purpose of:: To decrease pain, To improve nutrient delivery to tissue, To increase tolerance to activity/condition/position Therapeutic Exercise to Include: Passive ROM For the Purpose of:: To decrease pain, To increase ROM Manual Therapy Techniques to Include: Mobilization, Passive ROM For the Purpose of:: To increase ROM Cryotherapy (ice pack, ice massage): Yes For the Purpose of:: To decrease pain, To decrease swelling/inflammation Please do not hesitate to contact me at [phone] by phone or if you have questions or concerns regarding this new plan of care! Sincerely, Marcos Burr, DPT, OCS, CSCS
--- NOTE | 2020-02-18 11:33 | HP.PTREVAL ---
JORDYN Martinez, It has been my pleasure to treat ASTER LOMELI over the last 16 visits for R RC strain and bursitis, s/p RCR around 11/22. Please see the progress note below for an update on the physical therapy plan of care! Subjective: Saw doctor and happy with progress. Said it was OK to strengthen. still wants her to be careful. Pt has not been doing exercises as Eliel has taken over. Activities are pretty normal at home. Sleeping is OK, shoulder not keeping her up. On disability and not from shoulder. Pt reluctantly willing to commit to slow strengthening after the holidays. Wants to be able to shovel snow and push snow which doctor asked her to avoid. Objective/Function: 160 AROM flexiona dn abdction, 85 ext rotation and L2 IR. Strength er 4- ir 4 on R and flexion and abduction 4-, R side 4/5 throughout. Looking great and very functional. Needs to be a little stronger to safely progress to snow moving. Progressing well toward goals and new goal noted with fair prognosis. Plan Plan: every other week x 2 more visits to progress strengthening HEP. Next session elevator muscle and then diagonals. Goals Goal 1:: ST goals full PROM 150 elevationa nd 70 ext rotation Goal Time Frame: 2-4 Weeks Goal Progress: Goal Met Goal 2:: ST: walk around confidently without sling wehn allowed by doctor Goal Time Frame: 4-6 Weeks Goal Progress: Goal Met Goal 3:: Full aROM R UE Goal Time Frame: 6-8 Weeks Goal Progress: Goal Met Goal 4:: Return to baking and taking care of animals full activity Goal Time Frame: 8-12 Weeks Goal Progress: Goal Met Goal 5:: I appropriate management of condition Goal Time Frame: 8-12 Weeks Goal Progress: Progressing Goal 6:: I strengthening exercises via HEP to get ready to snow shovel Goal Time Frame: 4-6 Weeks Goal Progress: Progressing Anticipated Interventions Patient/Client Instruction: Educate patient on: Condition, Plan of Care For the Purpose of:: To decrease pain, To improve nutrient delivery to tissue, To increase tolerance to activity/condition/position Therapeutic Exercise to Include: Passive ROM For the Purpose of:: To decrease pain, To increase ROM Manual Therapy Techniques to Include: Mobilization, Passive ROM For the Purpose of:: To increase ROM Cryotherapy (ice pack, ice massage): Yes For the Purpose of:: To decrease pain, To decrease swelling/inflammation Please do not hesitate to contact me at [phone] by phone or if you have questions or concerns regarding this new plan of care! Sincerely, Marcos Burr, DPT, OCS, CSCS
--- NOTE | 2020-03-31 10:11 | HP.PTDCSUM_ITS ---
It has been my pleasure to treat ASTER LOMELI referred by JORDYN Martinez, with the diagnosis of R RC strain and bursitis, s/p RCR around 11/22 for a total of 18 visit(s). Discharge Date: 03/31/20 Please see the following information for a summary of their discharge status. Subjective: Shoulders not hurting much . It is getting there. Needs to be stro nger. Does ex 4x weeks. 3 sets of 10-15 with yellow to OTB. No f/u with doctor. Not really having pain. Sleeping well.Not needing heat anymore. Activities at home are normal. Shovelled snow without much problem yesterday. R shoulder Pain Intensity (Out of 10): 1 % Improvement: 99 Objective/Function: Full aROM R UE without pain today symmetrical with L. Strength symmetrical with L at 4 except ext rotation R which is 4-. Walking well with good arm swing. Overall back where she needs to be. Goal 1:: ST goals full PROM 150 elevationa nd 70 ext rotation Goal Progress: Goal Met Goal 2:: ST: walk around confidently without sling wehn allowed by doctor Goal Progress: Goal Met Goal 3:: Full aROM R UE Goal Progress: Goal Met Goal 4:: Return to baking and taking care of animals full activity Goal Progress: Goal Met Goal 5:: I appropriate management of condition Goal Progress: Goal Met Goal 6:: I strengthening exercises via HEP to get ready to snow shovel Goal Progress: Goal Met Plan: Cotninue HEP strengthening adn contact doctor if concerns arise. d/c PT If there are questions or concerns regarding this patient's physical therapy, please feel free to call me at [phone]. Thank you for the referral of this patient. Sincerely, Marcos Burr, DPT, OCS, CSCS
== END 2020-03-31 13:58 | disposition home or self-care (01) ==
LOC: PT 10:00
PROVIDERS: PCP Internal Medicine; Referring Provider Physician Assistant; Visit Provider Physician Assistant
DX: S46.011D Strain of muscle(s) and tendon(s) of the rotator cuff of right shoulder, subsequent encounter (principal); M19.011 Primary osteoarthritis, right shoulder; M75.51 Bursitis of right shoulder
CPT/HCPCS: 97110; 97140; 97161; 97164; 97530

== ENCOUNTER → 2020-07-30 11:13 | Outpatient (CLI) | payer MEDICARE, SELFPAY ==
[2020-07-30 10:35] VITALS: BMI 30.4
[2020-07-30 12:09] LABS: Absolute Lymphocyte Count 2.79 X10^3/uL (0.83-4.51); Absolute Neutrophil Count 3.8 X10^3/uL (2.0-7.7); Basophil# 0.07 X10^3/uL; Basophil% 0.9 % (0-1); Eosinophil# 0.25 X10^3/uL; Eosinophils% 3.3 % (0-5); Hematocrit 44.6 % (37-47); Hemoglobin 14.9 g/dL (12.0-15.0); Lymphocyte # 2.79 X10^3/ul (0.83-4.51); Mean Corp Hgb Conc 33.4 g/dL (32-36); Mean Corpuscular Hgb 31.4 pg (27.0-32.0); Mean Corpuscular Volume 93.9 fL (81-99); Mean Platelet Vol. 11.9 fl (6.2-12.0); Monocyte# 0.61 X10^3/uL; Monocyte% 8.1 % (0-10); NRBC Flagged by Analyzer 0 % (0-5); Neutrophil # 3.81 X10^3/uL (2.7-7.7); Neutrophil % 50.4 % (47-70); Platelet Count 233 K/mm3 (150-450); RBC Distribution Width CV 11.9 % (11.6-14.6); RBC Distribution Width SD 41.1 fl (35.1-43.9); Red Blood Count 4.75 M/mm3 (4.2-5.4); White Blood Count 7.6 K/mm3 (4.4-11.0)
[2020-07-30 12:49] LABS: Hemoglobin A1c 5.7 % (3.8-5.6)
[2020-07-30 13:06] LABS: AST(SGOT) 20 U/L (15-37); Alanine Aminotransfer ALT/SGPT 29 U/L (13-56); Albumin, Serum 3.8 g/dL (3.2-5.0); Alkaline Phosphatase 97 U/L (45-117); Anion Gap 7 (5-15); BUN 14 mg/dL (7-18); BUN/Creat Ratio 17.1 RATIO (10-20); Calcium,Total 8.9 mg/dL (8.5-10.1); Chloride 105 mmol/L (98-107); Cholesterol 178 mg/dL (200); Creatinine, Serum 0.82 mg/dL (0.55-1.02); EST Glomerular Filtration Rate 75 mL/min (>60); Est Glom Filt Rate - Afr Amer 90 mL/min (>60); Glucose 84 mg/dL (74-106); High Density Lipoprotein 41 mg/dL; Potassium 3.8 mmol/L (3.5-5.1); Protein, Total 7.8 g/dL (6.4-8.2); Sodium Level 138 mmol/L (136-145); Triglycerides 299 mg/dL; Very Low Density Lipoprotein 60 mg/dL (5-40)
== END ==
PROVIDERS: PCP Internal Medicine; Visit Provider Nurse Practitioner Family
DX: G56.00 Carpal tunnel syndrome, unspecified upper limb (principal); I10 Essential (primary) hypertension; F32.9 Major depressive disorder, single episode, unspecified; K58.9 Irritable bowel syndrome, unspecified; K21.9 Gastro-esophageal reflux disease without esophagitis; R73.09 Other abnormal glucose
CPT/HCPCS: 36415; 80053; 80061; 83036; 84443; 85025

== ENCOUNTER → 2020-09-09 14:02 | Outpatient (CLI) | payer MEDICARE, MEDICAID, SELFPAY ==
[2020-09-02 09:46] VITALS: BMI 30.4
--- NOTE | 2020-09-09 14:04 | RAD_ITS ---
HISTORY: Right hip pain. TECHNIQUE: XR Hip Unilateral with Pelvis when performed; 2-3 Views. # of images incl. paperwork: 3. COMPARISON: CT 02/28/2012. FINDINGS: OSSEOUS STRUCTURES: No acute displaced fracture identified. Note that overlapping bowel shadows may obscure detail. Degenerative sclerosis, osteophytes, and cysts of the right hip. ALIGNMENT/JOINTS: No dislocation. Moderate joint space narrowing of the right hip, progressed from prior. Mild degenerative changes of the left hip. RAD/HIP, UNI W/ Pelvis 2-3 Views IMPRESSION: No acute fracture or dislocation identified in the right hip. Progression of degenerative change. at 1322 Reported and signed by: Guillermina Boss MD Electronically Signed: Guillermina Boss MD at 13:21 EDT Tel , Service support ,
== END ==
PROVIDERS: PCP Internal Medicine; Referring Provider Internal Medicine; Visit Provider Internal Medicine
DX: M25.551 Pain in right hip (principal)
CPT/HCPCS: 73502

== ENCOUNTER 2020-11-05 13:30 | Outpatient (RCR) | payer MEDICARE, MEDICAID, SELFPAY ==
[2020-09-24 10:03] VITALS: BMI 32.2
--- NOTE | 2020-09-30 17:21 | HP.PTEVAL_ITS ---
Patient's Visit Information ASTER LOMELI is a 65 year old F referred to Physical Therapy by Dr. Jean-Paul Alaniz DO with a diagnosis of Right Hip OA. Date of Evaluation: 09/30/20 Physical Therapist: Juanita Borrego DPT - Visit Plan Frequency: 2x /Week Duration: 4 Weeks Plan: Aquatic Therapy. Focus on LE and core strength/stabilization - Subjective Patient reports that she is full of OA in the right hip and bursitis. The hip has been bothering her for about 3 months- she has fallen a few times on her buttock and feels that that might have progressed the OA. She had x-rays and Dr. Pereyra told her she was a good canidate for a hip replacement. He told her that exercises may help the bursitis- will start with exercise then progress to a hip replacement as needed. She wants to get it done sooner but wants to have less pain. Pain is located in the outside of the hip and radiates to the knee. Agg: lifting up the foot, getting in/out of the car, going down stairs, putting on socks/shoes, mowing, cleaning out. Worst:10/10 Eases: sitting around and resting Best: 0/10. Sleep: disturbed- hard to get comfortable and will wake her up. Describes the pain as spasm and tenderness. The pain radiates to her foot and describes that as uncomfortable. 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 No loss or change in bowel or bladder. Most pain is in the groin, knee and lateral aspect. Injection in her knee last year but just said slight OA. PMHx/meds: see Dr. Pereyra note- no changes since then. - Objective Posture: FH, RS- can correct with verbal cues but does not maintain. Gait: anta lgic- decreased stance on the right le with poor heel/toe pattern. HR/TR: WFL but pain with TR. SLS: unable to SLS but can weight shift but reports pain and instability. ROM: Lumbar: WFL pain with SB, Rotation and flexion, Hip: Flexion: 90 degrees, Abd: 30 degrees IR: neutral, ER: neutral, Extn: 10 degrees Knee/Ankle: WFL. Strength: Core: fair, Hip: 4/5 with pain, Knee: 4/5, Ankle: 4+/5. Flex: Hs: severe, Gastroc: severe. Special Test: MAMADOU: positive, Scour: positive. - Goals Goal 1:: Patient will be I with HEP and progression Goal Time Frame: 4-6 Weeks Goal 2:: Patient will ambulate >300 feet with a normalized gait pattern Goal Time Frame: 4-6 Weeks Goal 3:: Patient will asc/desc 8 recip with 1 HR Goal Time Frame: 4-6 Weeks - Rehabilitation Potential Physical Therapy Diagnosis: Patient presents with hypomobility- she has decreased pain free ROM, LE and core strength/stabilization, flex and muscular endurance leading to poor posture and increased pain with ADL's. Rehabilitation Potential: Fair - Anticipated Interventions Patient/Client Instruction: Educate patient on: Benefits of Fitness Program Therapeutic Exercise to Include: Strength training, Endurance training, Agility training, Body mechanics, Postural training, Flexibilty training, Gait and locomotor training, Neuromotor development, In an aquatic setting, Dynamic Lumbar Stabilization, Scapular Strength/Stabilization For the Purpose of:: To improve muscle performance and motor function Thank you for the opportunity to evaluate your patient. For Medicare and Medicare HMO plans, please review the plan of care and approve it. It will need to be FAXED BACK to us at [phone] for Medicare purposes. For Medicare only, by signing this I certify the plan of care. Please let me know if there are questions or concerns regarding this plan of care. Physician Signature: Date:
--- NOTE | 2020-11-05 13:58 | HP.PTREVAL ---
Dr. Jean-Paul Alaniz, DO, It has been my pleasure to treat ASTER LOMELI over the last 9 visits for Right Hip OA. Please see the progress note below for an update on the physical therapy plan of care! Subjective: PATIENT REPORTS SHE IS NOT GETTING BETTER. STATES SHE IS REALLY BUSY AND NEEDING TO TAKE A PAIN PILL IN THE AFTERNOON TO GET BY IN ADDITION TO AT NIGHT. FOLLOW UP WITH DR. ALANIZ PENDING MONDAY. PATIENT IS HOPING THAT HE WILL SAY A HIP REPLACEMENT IS THE ANSWER OR FIND OUT WHAT ELSE MIGHT BE WRONG. I CAN'T DO ANYTHING WITHOUT HURTING MORE. Objective/Function: PATIENT WAS SEEN TODAY FOR RE-ASSESSMENT OF PROGRESS TOWARD THE SET PT GOALS AND THE NEED FOR FURTHER PHYSICAL THERAPY VS READINESS FOR DISCHARGE. UPON EXAM TODAY THERE ARE NO SIGNIFICANT CHANGES SINCE INITIAL EVAL. PHYSICIAN RE-ASSESSMENT RECOMMENDED AND PATIENT AGREEABLE. Plan Plan: D/C DUE TO LACK OF PROGRESS. Balance/Gait/Functional tests - Balance/Special Test Scores Lower Extremity Functional Score: 36 Goals Goal 1:: Patient will be I with HEP and progression Goal Time Frame: 4-6 Weeks Goal Progress: Not Progressing Goal 2:: Patient will ambulate >300 feet with a normalized gait pattern Goal Time Frame: 4-6 Weeks Goal Progress: Not Progressing Goal 3:: Patient will asc/desc 8 recip with 1 HR Goal Time Frame: 4-6 Weeks Goal Progress: Not Progressing Anticipated Interventions Patient/Client Instruction: Educate patient on: Benefits of Fitness Program Therapeutic Exercise to Include: Strength training, Endurance training, Agility training, Body mechanics, Postural training, Flexibilty training, Gait and locomotor training, Neuromotor development, In an aquatic setting, Dynamic Lumbar Stabilization, Scapular Strength/Stabilization For the Purpose of:: To improve muscle performance and motor function Please do not hesitate to contact me at [phone] by phone or if you have questions or concerns regarding this new plan of care! Sincerely, Lily Medina, PT, Cert MDT
--- NOTE | 2020-12-06 16:14 | HP.PTDCSUM ---
It has been my pleasure to treat ASTER LOMELI referred by Dr. Jean-Paul Alaniz DO, with the diagnosis of Right Hip OA for a total of 9 visit(s). Discharge Date: Please see the following information for a summary of their discharge status. Subjective: PATIENT REPORTS SHE IS NOT GETTING BETTER. STATES SHE IS REALLY BUSY AND NEEDING TO TAKE A PAIN PILL IN THE AFTERNOON TO GET BY IN ADDITION TO AT NIGHT. FOLLOW UP WITH DR. ALANIZ PENDING MONDAY. PATIENT IS HOPING THAT HE WILL SAY A HIP REPLACEMENT IS THE ANSWER OR FIND OUT WHAT ELSE MIGHT BE WRONG. I CAN'T DO ANYTHING WITHOUT HURTING MORE. R hip Pain Intensity (Out of 10): 7 % Improvement: 0 Objective/Function: PATIENT WAS SEEN TODAY FOR RE-ASSESSMENT OF PROGRESS TOWARD THE SET PT GOALS AND THE NEED FOR FURTHER PHYSICAL THERAPY VS READINESS FOR DISCHARGE. UPON EXAM TODAY THERE ARE NO SIGNIFICANT CHANGES SINCE INITIAL EVAL. PHYSICIAN RE-ASSESSMENT RECOMMENDED AND PATIENT AGREEABLE. Goal 1:: Patient will be I with HEP and progression Goal Progress: Not Progressing Goal 2:: Patient will ambulate >300 feet with a normalized gait pattern Goal Progress: Not Progressing Goal 3:: Patient will asc/desc 8 recip with 1 HR Goal Progress: Not Progressing Plan: D/C DUE TO LACK OF PROGRESS. If there are questions or concerns regarding this patient's physical therapy, please feel free to call me at [phone]. Thank you for the referral of this patient. Sincerely, Lily Medina, PT, Cert MDT Balance/Gait/Functional tests - Balance/Special Test Scores Lower Extremity Functional Score: 36
== END 2020-11-05 19:00 | disposition home or self-care (01) ==
LOC: PT 13:30
PROVIDERS: PCP Internal Medicine; Referring Provider Orthopaedic Surgery; Visit Provider Orthopaedic Surgery
DX: M70.61 Trochanteric bursitis, right hip (principal); M76.31 Iliotibial band syndrome, right leg; M16.11 Unilateral primary osteoarthritis, right hip; M51.36 Other intervertebral disc degeneration, lumbar region
CPT/HCPCS: 97113; 97161; 97164

== ENCOUNTER 2020-11-11 07:25 | Day surgery (SDC) | payer MEDICARE, MEDICAID, SELFPAY ==
[2020-11-11] VITALS (7 sets, daily range): BP systolic 112–153; BP diastolic 57–70; PULSE 69–77; RESP 16; TEMP 35.7–36.3; O2SAT 97–100; BMI 31.4
--- NOTE | 2020-11-11 08:30 | IMM_PTH ---
PATIENT: ASTER LOMELI LOC: EN U#:[id number] AGE/SX: 65/F ROOM: RE11/11/[address]: Dr. Vinicius Artis DO : 1955 BED: DIS: 11/11/2020 SPEC #: [id number] RECD: 11/11/20 14:13 STATUS: CATHY REQ #: [id number] DANIEL: 11/11/20 08:[address]: Vinicius Artis DEPT: IMMUNOHISTOCHEMISTRY RECD BY: Maddi Casas ENTERED: 11/11/20 14:14 SP TYPE: IMMUNO OTHR DR: Dr. Soo Ladd MD Tissues: A - Stomach, NOS Procedures: H Pylori (initial) PHYSICIAN & INSTITUTION [address] [address] SPECIMEN INFORMATION: Tissue Source: A ? Gastric antrum biopsy Clinical Info: GERD, hiatal hernia, dysphagia Specimen Number: [id number] CPT code: 65852 METHODOLOGY: Deparaffinized sections of prefer/formalin-fixed tissue or PAP/DQ stained slides are incubated with monoclonal/polyclonal antibodies/oligonucleotide probes. Localization is made via biotin free immunoperoxidase method. Appropriate controls are performed and reacted as expected. Results on target cell population are indicated in the following table: RESULTS: ANTIBODY / CLONE RESULT Block A H Pylori (polyclonal) negative These tests were developed and their performance characteristics determined by [facility]. They may not have been cleared or approved by the U.[place]. Food and Drug Administration. The FDA has determined that such clearance or approval is not necessary. INTERPRETATION: A. Gastric antrum, biopsy: Negative for Helicobacter pylori organisms. SJ:hubert 11/12/2020
--- NOTE | 2020-11-11 08:30 | EGD_PTH ---
PATIENT: ASTER LOMELI LOC: EN U#:[id number] AGE/SX: 65/F ROOM: RE11/11/[address]: Dr. Vinicius Artis DO : 1955 BED: DIS: 11/11/2020 SPEC #: [id number] RECD: 11/11/20 12:21 STATUS: CATHY ARLENE #: [id number] DANIEL: 11/11/20 08:[address]: Vinicius Artis DEPT: SURGICAL PATHOLOGY RECD BY: Bhavna Rubio ENTERED: 11/11/20 13:01 SP TYPE: EGD BIOPSY [facility] DR: Dr. Soo Ladd MD Tissues: A - Gastric mucous membrane B - Duodenum, NOS C - Esophagus, NOS Procedures: Special Stain Group II Surgery Specimen Level IV Alcian Blue/PAS (control) HEADER OPERATION: EGD ([facility]) PRE-OP DIAGNOSIS: GERD, hiatal hernia, dysphagia TISSUE SUBMITTED: A ? Gastric antrum biopsy for H. pylori and path, B ? Duodenum biopsy, rule out celiac disease, C ? Distal esophagus biopsy MICROSCOPIC DIAGNOSIS A. Gastric antrum, biopsy: Mild gastritis. See microscopic description and comment. B. Duodenum, biopsy: Fragments of duodenal mucosa with mild congestion, hemorrhage and Natalie gland hyperplasia. C. Distal esophagus, biopsy: Fragments of gastroesophageal mucosa with mild chronic inflammation. Intestinal metaplasia (goblet cell metaplasia) not identified. See comment. SJ:hubert 11/12/2020 COMMENT A. The results of immunohistochemistry for Helicobacter pylori will be reported separately ([id number]). C. The specimen predominantly consists of gastric mucosa. Alcian blue/PAS stain with matched control is used in the evaluation of the specimen. MICROSCOPIC DESCRIPTION Slides are reviewed. A. The specimen shows fragments of gastric mucosa with chronic inflammatory cell infiltrates in the lamina propria consisting of lymphocytes and plasma cells, consistent with mild chronic gastritis. GROSS DESCRIPTION A - Received in fixative is one container labeled with the patient's name and designated antrum biopsy. The specimen consists of multiple irregular fragments of light yu soft tissue that in aggregate measure 0.5 x 0.5 x 0.1 cm. The specimen is totally submitted in one cassette. B - Received in fixative is one container labeled with the patient's name and designated duodenum biopsy. The specimen consists of multiple irregular fragments of light yu soft tissue that in aggregate measure 1.5 x 0.5 x 0.1 cm. The specimen is totally submitted in one cassette. C - Received in fixative is one container labeled with the patient's name and designated distal esophagus biopsy. The specimen consists of multiple irregular fragments of light yu soft tissue that in aggregate measure 0.7 x 0.3 x 0.1 cm. The specimen is totally submitted in one cassette. / SJ:rg 11/11/20 TC:3 CPT: 91606 x3, 25026
--- NOTE | 2020-11-11 09:11 | HP.PCM_ITS ---
History and Physical Date of Admission: 11/11/20 HPI Details: ASTER LOMELI, is a 65 F who presents to the office today for further evaluation of abdominal pain, GERD, esophageal dysphagia and chronic constipation. She was diagnosed with a hiatal hernia several years ago and she was told that it could be contributing to a lot of the bloating issues that she has been experiencing lately. Her big issue with her bowels is that she suffers from chronic idiopathic constipation. She has not had a sits marker test or any motility testing of her lower GI tract. She uses senna S with Colace and fiber in order to go to the bathroom every 2 or 3 days. After she goes to the bathroom she still feels bloated and distended. She says that she has not changed diet. She does take pain medicine due to the fact that she has degenerative joint disease in her low back and arthritis of her right hip. She does experience cramping in her left lower quadrant and her left upper quadrant. This is a lot better after she underwent a sigmoid resection for acute recurrent diverticulitis. Despite her having a sigmoid resection she still suffers from chronic idiopathic constipation. She does have to manually disimpact sometimes. She complains of diarrhea hard stools. Also gets heartburn on a daily basis will use of proton pump inhibitor. There was a suspicion of possible Robert's esophagus in the past. However she says that on her last upper endoscopy 3 years ago it was not seen. ROS Const Constitutional: No anorexia, fatigue, fever(s), weight change or sleep problems Eyes Eyes: No change in vision ENT ENT: No abnormal hearing, difficulty swallowing, mouth lesions, tongue swelling or throat swelling Resp Respiratory: No cough or shortness of breath Cardio Cardiology: Positive for leg pain with exertion Gastro GI: Positive for bloating, constipation and heartburn; No difficulty swallowing Genitourinary-Female: Positive for urinary frequency Musc Musculoskeletal: Positive for joint pain, back pain, Arthritis, leg pain at night and leg pain with exertion Skin Skin: No hair loss in leg, yellowing of the eye, itchy eyes, rash, skin ulcer or skin swelling Neuro Neurology: No abnormal hearing, abnormal movements, confusion, unsteady gait/balance or memory loss Psych Psychiatric: No anxiety, No confusion and No memory loss Endo Endocrine: Positive for increased urine leakage; No fatigue or weight change Aller/Imm Allergy/Immunologic: No itchy eyes, throat swelling or tongue swelling Ramon/Lymp Hematologic/Lymphatic: No easy bleeding, easy bruising or enlarged lymph nodes Exam Const General: cooperative and comfortable Nutritional Appearance: average body habitus and well nourished [facility] Head: normal to inspection Ears: hearing grossly normal bilaterally Nose: external nose normal Face and sinus: normal facial exam Mouth: oral mucosae normal Throat: posterior oropharynx normal Eyes General: appearance normal, both eyes and all related structures Neck Neck: normal visual inspection Chest Chest palpation & inspection: normal inspection of the chest and normal palpation of entire chest wall Resp Effort & Inspection: normal respiratory effort Auscultation: Bilateral: Clear to Auscultation Cardio Palpation: normal PMI Rate: regular rate Rhythm: regular rhythm GI Inspection: normal to inspection Auscultation: normal bowel sounds Percussion: normal to percussion Palpation: no hepatosplenomegaly Skin General: no rashes or lesions noted Neuro General: patient alert Extrem General: normal to inspection Psych Affect: normal affect Assessment and Plan Assessment and Plan (1) Constipation: Status: Acute Plan - Dr. Colvin Friend, DO: I will start her on a regimen of mineral oil plus white grape juice. I will stop her fiber that she takes on a daily basis as I think is contributing to her constipation. She can still take her senna S for now. We will also institute a digestive enzyme to help break her food down and hopefully cut down on some of the bloating that she is experiencing to allow her to have a more complete bowel movement. (2) GERD (gastroesophageal reflux disease): Status: Acute Plan - Dr. Colvin Friend, DO: We will continue her current regimen. This may be changed after she undergoes upper endoscopy. (3) Hiatal hernia: Status: Acute Patient Instructions: We will evaluate her hiatal hernia to see if is contributing to her bloating and esophageal dysphagia. It would be categorized as a paraesophageal, sliding hiatal hernia or both. (4) Dysphagia: Status: Acute Plan - Dr. Colvin Friend, DO: She will undergo an upper endoscopy with possible esophageal dilation and biopsies of the esophagus. She was explained alternatives, risk, benefits includ ing and not withstanding bleeding, infection, sepsis, perforation, need for emergent surgery . She will have an ASA of 3.I have re-examined the patient. There are no clinical changes since date of exam
--- NOTE | 2020-11-11 09:39 | OP.CCLET_ITS ---
10/28/2021 Soo Ladd MD [address] [place] [address] [place] [address] Re : Upper GI endoscopy procedure for Yvonne Montano Dear Dr. Ladd This procedure was performed on Wednesday, November 11, 2020. My impressions and recommendations are as follows: Impressions : - LA Grade A reflux esophagitis. Biopsied. - Non-bleeding erosive gastropathy. Biopsied. - Duodenal erosions without bleeding. Biopsied. - LA Grade A reflux esophagitis. Biopsied. - Mucosal changes suspicious for gastritis. Biopsied. - Chronic duodenitis. Biopsied. Recommendations : - Discharge patient to home (ambulatory). - Resume regular diet daily. - Continue present medications. - Await pathology results. - Return to my office in 2 weeks. - The findings and recommendations were discussed with the patient. My findings are described in the full procedure note, which is enclosed. If I can be of further assistance, please feel free to contact me at . Sincerely, Vinicius Artis, 11/11/2020 9:38:44 AM This report has been signed electronically.
--- NOTE | 2020-11-11 09:39 | OP.EGD_ITS ---
Patient Name: Yvonne Montano Procedure Date: 11/11/2020 9:06 AM Date of : 1955 Age: 65 Procedure: Upper GI endoscopy Indications: Abdominal pain in the right upper quadrant Providers: Vinicius Artis DO Medicines: Monitored Anesthesia Care Patient Profile: This is a 65 year old female. Refer to note in patient chart for documentation of history and physical. Patient has symptoms of acute right upper quadrant abdominal pain. The symptoms first began June. Complications: No immediate complications. Procedure: Pre-Anesthesia Assessment: - Prior to the procedure, a History and Physical was performed, and patient medications, allergies and sensitivities were reviewed. The patient's tolerance of previous anesthesia was reviewed. - The risks and benefits of the procedure and the sedation options and risks were discussed with the patient. All questions were answered and informed consent was obtained. - Patient identification and proposed procedure were verified prior to the procedure by the physician. The procedure was verified in the pre-procedure area. - Pre-procedure physical examination revealed no contraindications to sedation. - ASA Grade Assessment: I - A normal, healthy patient. - After reviewing the risks and benefits, the patient was deemed in satisfactory condition to undergo the procedure. - Monitored anesthesia care under the supervision of a SOLE SEWER HAND was determined to be medically necessary for this procedure based on review of the patient's medical history, medications, and prior anesthesia history. After obtaining informed consent, the endoscope was passed under direct vision. Throughout the procedure, the patient's blood pressure, pulse, and oxygen saturations were monitored continuously. The Endoscope was introduced through the mouth, and advanced to the third part of duodenum. The upper GI endoscopy was accomplished without difficulty. The patient tolerated the procedure well. Moderate Sedation: Moderate (conscious) sedation was personally administered by an anesthesia professional. The following parameters were monitored: oxygen saturation, heart rate, blood pressure, and response to care. Scope In: 9:19:30 AM Scope Out: 9:27:05 AM Total Procedure Duration Time 0 hours 7 minutes 35 seconds Findings: LA Grade A (one or more mucosal breaks less than 5 mm, not extending between tops of 2 mucosal folds) esophagitis with no bleeding was found. Biopsies were taken with a cold forceps for histology. Verification of patient identification for the specimen was done by the nurse using the patient's medical record number. A few localized, 2 mm non-bleeding erosions were found in the gastric antrum. There were no stigmata of recent bleeding. Biopsies were taken with a cold forceps for histology. Verification of patient identification for the specimen was done by the nurse using the patient's medical record number and other identification number. A few localized erosions without bleeding were found in the duodenal bulb. Biopsies were taken with a cold forceps for histology. Verification of patient identification for the specimen was done by the nurse using the patient's date and medical record number. Impression: - LA Grade A reflux esophagitis. Biopsied. - Non-bleeding erosive gastropathy. Biopsied. - Duodenal erosions without bleeding. Biopsied. - LA Grade A reflux esophagitis. Biopsied. - Mucosal changes suspicious for gastritis. Biopsied. - Chronic duodenitis. Biopsied. Recommendation: - Discharge patient to home (ambulatory). - Resume regular diet daily. - Continue present medications. - Await pathology results. - Return to my office in 2 weeks. - The findings and recommendations were discussed with the patient. Procedure Code(s): --- Professional --- 11902, Esophagogastroduodenoscopy, flexible, transoral; with biopsy, single or multiple CPT copyright 2017 [employer]. All rights reserved. The codes documented in this report are preliminary and upon development representative review may be revised to meet current compliance requirements. Vinicius Artis DO 11/11/2020 9:38:44 AM This report has been signed electronically. Number of Addenda: 1 Note Initiated On: 11/11/2020 9:06 AM Addendum Number: 1 Addendum Date: 10/28/2021 3:50:06 PM MAC was used instead of moderate sedation for this patient. Vinicius Artis DO 10/28/2021 3:50:19 PM This report has been signed electronically.
[2020-11-11] MEDS: Lactated Ringers 1,000 ML 100 ML IV (09:48)
== END 2020-11-11 10:56 ==
LOC: EN 07:29 → AC 07:30
PROVIDERS: PCP Internal Medicine; Referring Provider Internal Medicine; Visit Provider Internal Medicine Gastroenterology
PROC: 0DJ08ZZ Inspection of Upper Intestinal Tract, Via Natural or Artificial Opening Endoscopic (ICD-10-PCS; CPT 43235; principal; 2020-11-11 08:25)
DX: R10.11 Right upper quadrant pain (principal); K29.80 Duodenitis without bleeding; K21.00 Gastro-esophageal reflux disease with esophagitis, without bleeding; K26.9 Duodenal ulcer, unspecified as acute or chronic, without hemorrhage or perforation; R13.14 Dysphagia, pharyngoesophageal phase; K31.9 Disease of stomach and duodenum, unspecified; K44.9 Diaphragmatic hernia without obstruction or gangrene; K59.04 Chronic idiopathic constipation
CPT/HCPCS: 43239; 88305; 88313; 88342; J7120; J2405

== ENCOUNTER → 2020-11-18 14:48 | Outpatient (CLI) | payer MEDICARE, MEDICAID, SELFPAY ==
[2020-11-18 14:59] LABS: Bacteria 0 SEEN /hpf (None Seen); Mucous, Urine 0 SEEN /hpf (<or=2+); Red Blood Cells-Urine 0 SEEN /hpf (0-5); Squamous Epithelial Cells - UA 0 SEEN /hpf (5-10)
[2020-11-18 17:08] LABS: Absolute Lymphocyte Count 2.51 X10^3/uL (0.83-4.51); Absolute Neutrophil Count 5.6 X10^3/uL (2.0-7.7); Basophil# 0.11 X10^3/uL; Basophil% 1.2 % (0-1); Eosinophil# 0.18 X10^3/uL; Hematocrit 46.8 % (37-47); Hemoglobin 15.4 g/dL (12.0-15.0); Lymphocyte # 2.51 X10^3/ul (0.83-4.51); Lymphocyte % 27.8 % (19-41); Mean Corp Hgb Conc 32.9 g/dL (32-36); Mean Corpuscular Hgb 31.4 pg (27.0-32.0); Mean Corpuscular Volume 95.5 fL (81-99); Mean Platelet Vol. 12.1 fl (6.2-12.0); Monocyte# 0.66 X10^3/uL; Monocyte% 7.3 % (0-10); NRBC Flagged by Analyzer 0 % (0-5); Neutrophil # 5.55 X10^3/uL (2.7-7.7); Neutrophil % 61.4 % (47-70); Platelet Count 266 K/mm3 (150-450); RBC Distribution Width CV 12.4 % (11.6-14.6); RBC Distribution Width SD 43.7 fl (35.1-43.9)
[2020-11-18 17:13] LABS: Color, Urine Straw (Yellow); Glucose, Dipstick Normal (Normal); Ketone-Dipstick Negative (Negative); Leukocyte Esterase-Dipstick 500 /ul (Negative); Nitrite-Dipstick Negative (Negative); Occult Blood-Urine 10 /ul (Negative); Protein-Dipstick Negative (Negative); Urine Bilirubin Dipstick Negative (Negative); Urine Clarity Clear (Clear); Urine Urobilinogen Normal (Normal); Urine pH 6.5 (5.0 - 8.0)
[2020-11-18 17:31] LABS: White Blood Cells 5-10 SEEN /hpf (0-5)
[2020-11-18 17:34] LABS: ALB/GLOB Ratio 0.8 RATIO (0.9-2.4); AST(SGOT) 22 U/L (15-37); Alanine Aminotransfer ALT/SGPT 33 U/L (13-56); Albumin, Serum 3.7 g/dL (3.2-5.0); Alkaline Phosphatase 90 U/L (45-117); Anion Gap 5 (5-15); BUN 11 mg/dL (7-18); BUN/Creat Ratio 13.9 RATIO (10-20); Calcium,Total 9.2 mg/dL (8.5-10.1); Chloride 103 mmol/L (98-107); Creatinine, Serum 0.79 mg/dL (0.55-1.02); EST Glomerular Filtration Rate 77 mL/min (>60); Est Glom Filt Rate - Afr Amer 93 mL/min (>60); Globulin 4.5 g/dL (2.2-4.2); Glucose 114 mg/dL (74-106); Potassium 4.1 mmol/L (3.5-5.1); Protein, Total 8.2 g/dL (6.4-8.2); Sodium Level 137 mmol/L (136-145); Thyroid Stim Hormone (TSH) 1.06 uIU/mL (0.358-3.74)
== END ==
PROVIDERS: PCP Internal Medicine; Referring Provider Nurse Practitioner Family; Visit Provider Nurse Practitioner Family
DX: R30.0 Dysuria (principal); G56.00 Carpal tunnel syndrome, unspecified upper limb; Z01.818 Encounter for other preprocedural examination; T78.40XA Allergy, unspecified, initial encounter
CPT/HCPCS: 36415; 80053; 81001; 84443; 85025; 87086

== ENCOUNTER → 2020-11-26 14:47 | Outpatient (CLI) | payer MEDICARE, MEDICAID, SELFPAY ==
--- NOTE | 2020-11-26 14:49 | CT_ITS ---
STUDY: CT SCAN HIP RIGHT REASON FOR EXAM: Female, [address] templating for right DELTA RADIATION DOSAGE (If Supplied By Facility): CTDIvol = ( 13.45 ) mGy, DLP = ( 806.24 ) mGycm. Individualized dose optimization techniques were used for this CT.? TECHNIQUE: Multiple axial tomographic images were obtained without intravenous contrast demonstration. Coronal and sagittal reconstruction was obtained as well. COMPARISON: None. FINDINGS: There is a marked degree of joint space narrowing of the right hip joint with marginal spurring of the femoral heads more prominent along the medial inferior aspect. There is evidence of subchondral cyst in the lateral acetabulum. CT/Extremity Lower without Contra IMPRESSION: Marked degree of joint space narrowing with marginal osteophytes of the right hip joint with subjacent acetabular cystic changes. Electronically Signed: Tae Perez MD at 15:46 EDT , Service support ,
== END ==
PROVIDERS: PCP Internal Medicine; Referring Provider Orthopaedic Surgery; Visit Provider Orthopaedic Surgery
DX: M16.11 Unilateral primary osteoarthritis, right hip (principal)
CPT/HCPCS: 73700

== ENCOUNTER 2020-12-08 09:29 | Inpatient (IN) | payer MEDICARE, MEDICAID, SELFPAY ==
--- NOTE | 2020-11-26 12:01 | EKG12_ITS ---
Test Reason : PRE OP Blood Pressure : / mmHG Vent. Rate : 075 BPM Atrial Rate : 075 BPM P-R Int : 196 ms QRS Dur : 074 ms QT Int : 376 ms P-R-T Axes : 061 003 044 degrees QTc Int : 419 ms Normal sinus rhythm Normal ECG Confirmed by JEYSON FARRIS, TIMUR ([id number]), assistant editor MAIDA BAILEY ([id number]) on 11/27/2020 7:26:17 AM Referred By: Jean-Paul Alaniz Confirmed By:TIMUR BENÍTEZ MD
[2020-11-26 13:55] LABS: Prothrombin Time (Protime)PT. 12.5 SECONDS (11.7-14.9)
[2020-11-26 13:56] LABS: Partial Thromboplast Time 34.6 Seconds (24.1-36.2)
[2020-11-26 14:06] LABS: Magnesium 2.4 mg/dL (1.6-2.6)
[2020-11-28 15:34] LABS: Fructosamine 235 umol/L (0-285)
[2020-12-08] VITALS (11 sets, daily range): BP systolic 112–149; BP diastolic 61–83; PULSE 54–83; RESP 14–18; TEMP 36.2–36.7; O2SAT 95–100; BMI 30.4
--- NOTE | 2020-12-08 10:04 | HP.PCM_ITS ---
History and Physical Date of Admission: 12/08/20 Date of Service: 11/09/20 MR#:[id number]:[id number]: ASTER LOMELI [facility] #:[id number]:1955 Provider:Dr. Jean-Paul Alaniz, DOAge/Sex: 65/F [facility] Visit Reasons: RIGHT HIP Allergies amoxicillin Adverse Reaction (Verified 11/09/20 09:39) YEAST INFECTION REGINAE Allergy (Uncoded 11/06/20 13:03) Hives Medications fluorometholone 0.1 % eye drops,suspension 1 drp OPHTHALMIC BID ml 10/15/18 [History Confirmed 11/09/20] oxycodone-acetaminophen 5 mg-325 mg tablet 1 tab PO BID PRN tab 10/15/18 [History Confirmed 11/09/20] tizanidine 4 mg tablet 4 mg PO QHS tab 10/15/18 [History Confirmed 11/09/20] buspirone 15 mg tablet 15 mg PO BID PRN tab 08/28/19 [History Confirmed 11/09/20] cyclosporine 1 drp EACH EYE BID 11/08/19 [History Confirmed 11/09/20] sennosides 8.6 mg capsule 8.6 mg PO QHS 07/01/20 [History Confirmed 11/09/20] cholecalciferol (vitamin D3) 25 mcg (1,000 unit) tablet 1,000 unit PO DAILY #90 tab 07/30/20 [Rx Confirmed 11/09/20] vitamin B complex 1 tab PO DAILY #90 tab 07/30/20 [Rx Confirmed 11/09/20] cetirizine 10 mg capsule 10 mg PO DAILY PRN 09/02/20 [History Confirmed 11/09/20] sennosides 8.6 mg-docusate sodium 50 mg tablet 1 tab-cap PO tab 09/24/20 [History Confirmed 11/09/20] esomeprazole magnesium 40 mg capsule,delayed release 40 mg PO QHS cap 11/09/20 [History] [facility] Medical History Allergies Anxiety Anxiety Arthritis Back problem Carpal tunnel syndrome Constipation Degenerated intervertebral disc Depression Dermatitis Diverticulitis Dysphagia Fibromyalgia GERD (gastroesophageal reflux disease) GERD (gastroesophageal reflux disease) H/O emotional problems Hiatal hernia IBS (irritable bowel syndrome) Preventative health care Rheumatoid arthritis Right hip pain Thoracic stomach hernia Trochanteric bursitis of right hip UTI (urinary tract infection) Vitamin deficiency Surgical History History of carpal tunnel release History of cholecystectomy History of esophagogastroduodenoscopy (EGD) History of partial surgical removal of colon History of shoulder surgery History of tonsillectomy Family History Sister Anemia Mother Anxiety Blood clot in vein Myocardial infarction Heart disease Hormone Problems Hypertension Kidney disease Psychiatric care Respiratory disease Thyroid disorder COPD (chronic obstructive pulmonary disease) Sleep apnea ulcer disease Grandmother Arthritis Diabetes CVA (cerebral vascular accident) Father Diverticulitis Hypertension High cholesterol Kidney disease Thyroid disorder ulcer disease Aunt Breast cancer Heart disease Skin cancer CVA (cerebral vascular accident) Daughter Depression Grandfather Myocardial infarction Other Crohn's disease Social History Smoking Status: Never smoker alcohol intake: never substance use type: does not use what type of physical activity do you participate in: none HPI RIGHT HIP Details: Parts of this documentation were recorded by a scribe, this documentation accurately reflects the service provided and the decisions made by me, Dr. Jean-Paul Alaniz, DO 11/09/20 2069. ASTER LOMELI is a 65 year old F here today for a follow up after doing Physical Therapy on her right hip. Patient did Pt 3 weeks of PT. Patient states that she doesn't think Physical Therapy did her any good. Patient states the PT seems to have made it worse. Patient states she is now having issues walking. She is taking 2 Percocet now instead of just the one. Sheila does have radiating pain all the way down to her foot at time. no numbness or tingling. Patient does have some lower back pain. Ortho Exam General General: Yes no acute distress Neurologic: Yes alert Psychologic: Yes reasonable and appropriate Right Hip Skin: Yes CDI, No Ecchymosis, No soft tissue swelling and No Erythema Special Tests: Yes TTP Greater Troch, Yes TTP Greater sciatic notch and Yes Illiotibial band tenderness HIP: Groin pain pain with IR, 10 degrees IR, 45 ER, severe pain with ER. weakness with hip flexion. good strength with ankle and knee extension. ttp SI joint. no ttp paraspinals. Palpable pedal pulses intact sensation light touch Coding Level of Care Code Off vis,est,level 3 Diagnoses Osteoarthritis of right hip M16.11 Osteoarthritis type: primary Fibromyalgia M79.7 Rheumatoid arthritis M06.9 Rheumatoid arthritis location: unspecified site Rheumatoid factor presence: unspecified presence Disc degeneration, lumbar M51.36 Narcotic drug use F11.90 Assessment and Plan Assessment and Plan (1) Osteoarthritis of right hip: Status: Acute Qualifiers: Osteoarthritis type: primary Qualified Code(s): M16.11 - Unilateral primary osteoarthritis, right hip (2) Fibromyalgia: Status: Chronic (3) Rheumatoid arthritis: Status: Chronic Qualifiers: Rheumatoid arthritis location: unspecified site Rheumatoid factor presence: unspecified presence Qualified Code(s): M06.9 - Rheumatoid arthritis, unspecified (4) Disc degeneration, lumbar: Status: Acute (5) Narcotic drug use: Status: Acute Plan - Dr. Jean-Paul Alaniz, DO: Aster has multiple sources for her right hip and leg pain. She does have arthrosis of her right hip joint which is likely the cause of her groin pain that radiates to her glutes however she does also have some radiating pain down left thigh and leg and does have a known lumbar degenerative disc disease and stenosis. She is not really complaining of radiculopathy at this point. She has failed physical therapy and wishes to proceed with right total hip arthroplasty. I explained to her that that due to the multiple sources of her pain she may not get complete relief with total hip replacement however I do feel it would give her some relief. Due to the fact that she is on narcotics now and has multiple medical comorbidities will pre-CERT for full admission. Risks, benefits and alternatives of surgery reviewed including but not limited to bleeding, infection, nerve, artery and/or tissue damage, fracture, VTE, leg length discrepancy, dislocation, need for hip precautions, continued pain and expected post-operative course. We also discussed repeat MRI of the lumbar spine and follow-up with spine surgery as an option. Patient informed some of her pain could be coming from her lumbar spine. Hip Arthritis does not cause the radiating pain all the way to her foot. We also discussed injection into the hip socket to help see what kind of relief she will get if she had a Hip replacement she declined this. Patient will proceed with surgery planning. Will need medical clearance 11/09/20 1112<Electronically signed by Jean-Paul Alaniz DO>Date Jean-Paul Alaniz DO Cosigner Signature:Date I have re- examined the patient. There are no clinical changes since date of exam
[2020-12-08] MEDS: Lactated Ringers 1,000 ML 999 ML IV (10:30)
[2020-12-08] MEDS: Gabapentin 600 MG Tablet PO (10:42)
[2020-12-08] MEDS: Acetaminophen 500 MG Tablet 1000 MG PO ×2 (10:42→22:24)
[2020-12-08] MEDS: Scopolamine 1mg/72hr Patch 1 PATCH TD (10:43)
[2020-12-08] MEDS: Lactated Ringers 1,000 ML 100 ML IV (12:15)
--- NOTE | 2020-12-08 12:25 | HIP_PTH ---
PATIENT: ASTER LOMELI LOC: MS2 U#:[id number] AGE/SX: 65/F ROOM: [id number] RE12/08/[address]: Dr. Jean-Paul Alaniz DO : 1955 BED: 1 DIS: 12/09/2020 SPEC #: [id number] RECD: 12/09/20 08:59 STATUS: CATHY REKaitlin #: [id number] DANIEL: 12/08/20 12:[address]: Jean-Paul Alaniz DEPT: SURGICAL PATHOLOGY RECD BY: Yomaira Benton ENTERED: 12/09/20 10:01 SP TYPE: TOTAL HIP OTHR DR: Dr. Soo Ladd MD Tissues: Hip, NOS Procedures: Decalcification bone/plaque Surgery Specimen Level IV HEADER OPERATION: ERAS, total hip replacement robotic arm assist PRE-OP DIAGNOSIS: Osteoarthritis of right hip TISSUE SUBMITTED: Right hip bone and tissue MICROSCOPIC DIAGNOSIS Right hip bone and soft tissue, total hip replacement: Femoral head with degenerative osteoarthritic changes. Fragments of fibroadipose tissue and reactive synovial tissue. GERRI:hubert 12/14/2020 MICROSCOPIC DESCRIPTION Slides are reviewed. GROSS DESCRIPTION Received is one container labeled with the patient's name and designated bone and soft tissue hip, right. The specimen consists of a yu femoral head with portion of femoral neck. The femoral head measures 3.5 x 3.5 x 3.5 cm and the femoral neck measures 1.9 cm in length. The articular surface displays prominent osteophyte formation, eburnation and bone erosion. Also present in the specimen container are multiple irregular fragments of bone reamings and pink-yellow soft tissue measuring in aggregate 6 x 5 x 2 cm. Firmware Test Engineer sections are submitted in two cassettes as follows: 1 - soft tissue, 2 - bone after decalcification. / GERRI:hubert 12/09/20 TC:5 CPT: 41442, 13756
[2020-12-08 12:45] LABS: Bedside Glucose 85 mg/dL (70-110)
[2020-12-08] MEDS: Cefazolin 2 GM in 0.9% Normal Saline 100 ML IV (13:49)
[2020-12-08] MEDS: dexAMETHasone 10 MG/ML Vial IV (14:10)
--- NOTE | 2020-12-08 15:56 | OP.PCM_ITS ---
Report of Operation Date of Procedure: 12/08/20 Description of Surgical Findings:: Preoperative diagnosis: Right hip DJD Postoperative diagnosis: Same Procedure: CT-guided Makoplasty assisted right total hip arthroplasty Implants: Austin Accolade II stem size 2, 132 degree neck angle 0 neck length 46 mm Trident II acetabular shell with 45 mm cancellous screw 32mm ceramic head Anesthesia: Spinal EBL: 175 cc Complications: None Condition: Stable to PACU Indication for procedure: This is a 65-year-old female who has had long-standing arthrosis of the hip who has failed conservative treatment and wished to undergo total hip arthroplasty. We did discuss operative versus nonoperative intervention including risks of bleeding, infection , nerve artery tissue damage, need for further surgery, fracture, leg length discrepancy dislocation blood clot and need for postoperative physical therapy and postoperative expectations. An informed consent was signed. Procedure: Patient was met in the preoperative holding area once again the operative extremity was identified by both patient and physician and was marked. Patient was met by anesthesia . Anesthesia was started. patient was then positioned in the lateral decubitus position on a well-padded pegboard with an axillary roll. All bony prominences were checked and padded. The patient was prepped and draped in the usual sterile fashion. A timeout was called to ensure the proper patient procedure and extremity were being contemplated. Anatomic landmarks were palpated and marked for a standard posterior lateral approach. Prior to this the ASIS was palpated and 3 fingerbreadths proximal to this 3 pins were placed at a 45 degree angle into the iliac crest with good purchase, stab incisions were made with a 15 blade into the skin prior to placement. The Makoplasty array was then secured. A 10 blade scalpel was used to make a posterior incision through the skin and subcutaneous tissue. retractors were used and electrocautery was used to maintain meticulous hemostasis and dissect full-thickness flaps until the gluteal fascia was reached. The gluteal fascia was incised in line with the gluteal fibers. The bursal tissue was then freed from the underside and a Charnley retractor was placed. The femoral trochanteric checkpoint was placed and leg length was assessed using the trochanteric checkpoint and an EKG lead that was placed on the knee prior to prepping the leg .the fat pad was then elevated off of the external rotators with electrocautery and the external rotators were dissected off of the greater trochanter including the piriformis and were tagged with #1 Ethibond for later repair. The joint capsule opened with posterior trapdoor technique. The hip was surgically dislocated. The measurement on the preoperative CT from the top of the lesser trochanter to the femoral neck cut was marked Hohmann was placed a round the lesser trochanter. A neck cutting guide was used to katie the neck with a Bovie and an oscillating saw was used complete the femoral neck cut. The femoral head was then removed and sized. We then turned our attention to the acetabulum. A Bovie was used to make a perforation in the anterior joint capsule and a Dasilva retractor was placed this was repeated in the 6 o'clock position and a wide garett was placed there. With a long handled knife the labral and pulvinar tissue were removed. We then registered the acetabulum with the pointing array and confirmed our landmarks. Once the socket was thoroughly prepared and labral tissue and pulvinar was removed we single reamed with the robotic arm. We then used the robotic arm to position the acetabular implant and impacted it into place under robotic guidance. We then proceeded to place a posterior superior screw by drilling first measuring and inserting the screw. We then inserted a trial liner. And turned our attention back to the femur at this point a femoral elevator was used. As well as a pointed wide Hohmann around the lesser trochanter and a Hohmann to help retract the gluteus medius. A box chisel was used to remove excess lateral neck followed by a canal finder and a lateralizing reamer. This was followed by sequential broaches. Attention was made of the version within the canal based on preoperative templating. Once the final broach was seated we then trialed reduced the hip it was determined that a 132 degree neck angle with a 0 neck length was the appropriate size. We then checked stability with shuck testing as well as flexion and internal rotation. then proceeded with hip extension and checked leg lengths at the knees and heels as well as with the trochanteric checkpoint and knee EKG lead. At this point trials were removed. A liner was inserted to the cup. The femoral stem was inserted. We re-trialed and then proceeded to impact the femoral head onto the Rao taper. We then surgically reduce the hip check stability again and leg lengths and were satisfied. Betadine rinse was allowed to sit for 5 minutes while everyone changed their gloves. Thorough irrigation was performed. Followed by closure of the external rotators with #2 FiberWire followed by closure of gluteal fascia with #1 Ethibond. 0 Vicryl fat stitches and 2-0 Vicryl subcutaneous stitches and donte in the skin. A pulls were placed in the pin sites over the iliac crest with Xeroform 4 x 4 and OpSite. dressing was applied to incisional area with Mepilex Ag and an abduction pillow was placed. Patient tolerated the procedure well there was no intraoperative complications all counts were correct and the patient was brought back to the PACU in stable condition
--- NOTE | 2020-12-08 16:20 | RAD_ITS ---
STUDY: X-RAY - PELVIS AND RIGHT HIP REASON FOR EXAM: Female, 65 years old. Post Op -- AP both hips on single chris/lateral of op hip PACU TECHNIQUE: 3 views of the pelvis and hip. COMPARISON: None. FINDINGS: Distended urinary bladder. There is a total right hip replacement. Postsurgical changes in the adjacent soft tissue. Skin donte are noted laterally. RAD/Hip Min 2 Views (Portable) IMPRESSION: Right total hip replacement with postsurgical changes. Electronically Signed: Fer Go DO at 17:53 EDT Tel [phone], Service support ,
[2020-12-08] MEDS: Lactated Ringers 1,000 ML 125 ML IV (17:41)
[2020-12-08] MEDS: Cefazolin 1 GM/50 ML BAG IV (18:23)
[2020-12-08] MEDS: Glycerin/Hypromellose/PEG400 15 ml Bottle EACH EYE (22:21)
[2020-12-08] MEDS: Pantoprazole Sodium 40 MG Tablet PO (22:23)
[2020-12-08] MEDS: Senna Tablet 1 TABLET PO (22:23)
[2020-12-08] MEDS: tiZANidine HCl 2 MG Tablet 4 MG PO (22:23)
[2020-12-08] MEDS: FLUOROMETHOLONE 5 ML DROPS.SUSP EACH EYE (22:35)
[2020-12-08] MEDS: oxyCODONE 5 MG Tablet PO (22:38)
[2020-12-09] MEDS: Cefazolin 1 GM/50 ML BAG IV ×2 (00:40→09:24)
[2020-12-09 03:04] VITALS: BP 107/65; PULSE 65; RESP 16; TEMP 36.3; O2SAT 100
[2020-12-09 05:50] VITALS: BP 101/59; PULSE 59; RESP 18; TEMP 36.4; O2SAT 95
[2020-12-09] MEDS: Acetaminophen 500 MG Tablet 1000 MG PO ×2 (05:51→13:06)
[2020-12-09] MEDS: APIXABAN 2.5 MG TABLET PO (05:52)
[2020-12-09 07:10] LABS: Hematocrit 40.4 % (37-47); Hemoglobin 13.3 g/dL (12.0-15.0); Mean Corp Hgb Conc 32.9 g/dL (32-36); Mean Corpuscular Hgb 31.8 pg (27.0-32.0); Mean Corpuscular Volume 96.7 fL (81-99); Mean Platelet Vol. 11.3 fl (6.2-12.0); Platelet Count 233 K/mm3 (150-450); RBC Distribution Width CV 12.2 % (11.6-14.6); RBC Distribution Width SD 43.5 fl (35.1-43.9); Red Blood Count 4.18 M/mm3 (4.2-5.4); White Blood Count 15.8 K/mm3 (4.4-11.0)
[2020-12-09 07:42] LABS: Anion Gap 6 (5-15); BUN 9 mg/dL (7-18); Calcium,Total 8.7 mg/dL (8.5-10.1); Chloride 107 mmol/L (98-107); EST Glomerular Filtration Rate 67 mL/min (>60); Est Glom Filt Rate - Afr Amer 81 mL/min (>60); Estimated Creatinine Clearance 47.03 ml/min; Glucose 131 mg/dL (74-106); Sodium Level 138 mmol/L (136-145)
--- NOTE | 2020-12-09 07:51 | PCS.PANDOC ---
PANDEMIC DOCUMENTATION INITIATED: Date: 12/08/2020 Time: 190
[2020-12-09 08:19] VITALS: BP 115/67; PULSE 80; RESP 18; TEMP 36.8; O2SAT 96
[2020-12-09] MEDS: FLUOROMETHOLONE 5 ML DROPS.SUSP EACH EYE (09:20)
[2020-12-09] MEDS: Glycerin/Hypromellose/PEG400 15 ml Bottle EACH EYE (09:21)
[2020-12-09] MEDS: oxyCODONE 5 MG Tablet PO ×2 (11:25→13:09)
--- NOTE | 2020-12-09 11:45 | CASEMGMT ---
WINDY JACKSON Face to Face with patient for initial transition planning/care coordination assessment. RN CM introduced self and role at [facility]. Patient lying in bed, alert and oriented. Patient willing to participate in assessment and is able to answer all questions appropriately. Care providers, pharmacy, and demographics verified. Patient wishes to discharge home and is setup with outpatient therapy. Patient states she has no further needs or concerns at this time. CM to follow for discharge planning needs that may arise. PCP: Wilberto Specialists: matthew Alaniz; solomon Judge Preferred Pharmacy: [facility] Insurance: [facility] Dual Prescription Benefit: yes Living Will/HPOA: yes, isauro Allen LNOK: sons Living Arrangements: Patient lives alone in a single story home with 2 platform steps to enter the home. Patient states he was independent at home prior to surgery. Transportation: son, [facility] melanie DME/HHC: Patient states she has shower chair, cane, walker, grab bars at home. Patient is scheduled for outpatient therapy at [facility] starting Monday with [facility] to provide transport. Disposition Plan: Patient to discharge home with outpatient therapy, family support, and follow-up plans in place. Carly PATEL, RN, CM
[2020-12-09 12:19] VITALS: BP 116/54; PULSE 76; RESP 18; TEMP 36.6; O2SAT 95
--- NOTE | 2020-12-09 12:28 | PCM.PN.ORT ---
Subjective Subjective Seen and examined. Doing well pain controlled denies fevers chills nausea vomiting shortness of breath or chest pain. Complaint of not receiving 2 doses of Senokot-S. No bowel discomfort. Objective Data Objective Data Vital Signs: Vital Signs Temp Pulse Resp BP Pulse Ox 98.3 F 80 18 115/67 96 12/09/20 08:19 12/09/20 08:19 12/09/20 08:19 12/09/20 08:19 12/09/20 08:19 Oxygen Flow Rate (L/min) 6 Oxygen Delivery Method Room Air Weight: 160 lb 14.999 oz Body Mass Index (BMI) 30.4 Intake & Output: Intake and Output for Last 24 Hours 12/07/20 12/08/20 12/09/20 23:59 23:59 23:59 Intake Total 2892.83 / 2892.83 591.67 / 591.67 Output Total 2450 / 2450 600 / 600 Balance 442.83 / 442.83 -8.33 / -8.33 Lab / Micro Data Result Diagrams: 12/09/20 06:44 12/09/20 06:44 Labs: Laboratory Results - last 24 hr 12/08/20 10:21: POC Glucose 85 12/09/20 06:44: WBC 15.8 H, RBC 4.18 L, Hgb 13.3, Hct 40.4, MCV 96.7, MCH 31.8, MCHC 32.9, RDW Std Deviation 43.5, RDW Coeff of Ethan 12.2, Plt Count 233, MPV 11.3 12/09/20 06:44: Sodium 138, Potassium 4.0, Chloride 107, Carbon Dioxide 25.0, Anion Gap 6, BUN 9, Creatinine 0.90, Estim Creat Clear Calc 47.03, Est GFR (MDRD) Af Amer 81, Est GFR (MDRD) Non-Af 67, BUN/Creatinine Ratio 10.0, Glucose 131 H, Calcium 8.7 Micro: Microbiology 11/26/20 12:17 Swab (Method) Nasal Screen MRSA/MSSA - Final Radiography Diagnostic Testing: Radiology Impression Hip X-Ray 12/08/20 16:20 IMPRESSION: Right total hip replacement with postsurgical changes. Electronically Signed: Fer Go DO at 17:53 EDT Tel [phone], Service support , Physical Exam Const alert, oriented x3 and no apparent distress General Appearance: cooperative Extremity Extremity Narrative: Right hip dressing clean dry and intact compartments soft neurovascular intact right lower extremity Assessment & Plan Assessment/Plan (1) S/P total hip arthroplasty: QUALIFIERS: Laterality: right Qualified Code(s): Z96.641 - Presence of right artificial hip joint PLAN: At this point patient is doing well. She wishes to be discharged home she has been up with physical therapy and is ambulating well.
--- NOTE | 2020-12-09 12:31 | PCM.DC ---
Discharge Instructions Diet Discharge Diet: No restrictions Dressing / Incision Call your doctor if you observe: Shortness of breath and Chest pain Additional Dressing/Incision Instructions:: Do not shower 72hrs. Begin daily showering warm water antibacterial soap postop day #3( 72hrs Post-operatively) and then daily. Leave the dressing on for 72 hours postoperatively then may remove prior to first shower and change dressing daily after this until no drainage for 2 consecutive days then may leave open to air. Follow hip precautions that were reviewed in hospital. Wear compression stockings, may remove at night. Start physical therapy as directed in hospital. Follow prescriptions instructions do not take any other pain medication or differ dosing without consulting your physician. Do not take oral NSAIDs until blood thinner has been completed , then may begin the day after completion if needed . Call Dr. Alaniz's office with any concerns. Follow Up Care Please Follow Up With: Jean-Paul Alaniz DO When: 2 weeks Test Results: Test results from this visit will be discussed in further detail at your follow-up appointment, if applicable. Discharge Plan Admission Admit Date/Time: 12/08/20 09:29 Attending Provider: Jean-Paul Alaniz Primary Care Provider: Soo Ladd Discharge Orders/Prescriptions Prescriptions: New acetaminophen 500 mg Tablet 1,000 mg PO Q6H Qty: 90 RF: 1 Eliquis 2.5 mg Tablet 2.5 mg PO BID Qty: 42 RF: 0 oxycodone 5 mg Tablet 5 - 10 mg PO Q4H PRN PRN (Reason: Pain Score 4-10) 7 Days Qty: 60 RF: 0 Continued fluorometholone 0.1 % drops,suspension 1 drp OPHTHALMIC BID RF: 0 buspirone 15 mg tablet 15 mg PO BID PRN (Reason: Anxiety) RF: 0 sennosides 8.6 mg capsule 8.6 mg PO QHS RF: 0 Zyrtec 10 mg capsule 10 mg PO DAILY PRN (Reason: ALLERGIES) RF: 0 esomeprazole magnesium 40 mg capsule,delayed release(DR/EC) 40 mg PO QHS RF: 0 tizanidine 4 mg tablet 4 mg PO QHS RF: 0 Restasis 1 DROP dropperette 1 drp EACH EYE BID RF: 0 Probiotic-Digestive Enzymes 5-250 mg Capsule 1 cap PO TID RF: 0 vitamin B complex [B Complex-Vitamin B12] Tablet 1 tab PO DAILY RF: 0 cholecalciferol (vitamin D3) 25 mcg (1,000 unit) tablet 1,000 unit PO DAILY RF: 0 Discontinued oxycodone-acetaminophen 5-325 mg tablet 1 tab PO BID PRN (Reason: Pain) RF: 0 Referrals / Follow Up: Soo Ladd MD [Primary Care Provider] -
[2020-12-09] MEDS: Senna/Docusate Sodium 1 Tablet PO (13:06)
[2020-12-09] MEDS: busPIRone 15 MG TABLET PO (13:06)
--- NOTE | 2020-12-14 13:32 | CASEMGMT ---
Addendum entered by Carly Rosales 12/14/20 14:11: SW received call from pt. SW verbally reviewed list of SNF providers including quality and resource use data and consistent with the patient?s preferred geographic region, medical needs, and insurance network. The three SNF in [place] that accept pt's insurance [facility], [facility], [facility]. SW informed pt that she will need to call the facilities that she would want to go to and speak with admissions regarding placement from the Community. Pt states that the only concern she has about going to a senior living is she gets constipated and she will need to take the right medications to prevent that from happening. SW encouraged pt to once she calls the facilities to let the facilities know her concerns. SW informed pt that once she has decided on a facility to call her PCP, Dr. Ladd, and they will be able to assist with pt getting to a SNF. Pt states she called her PCP and was told that they cannot do that, that pt will need to come to the ED to get placed. SW informed pt that that is not true, pt's can get placed from the Community to SNF through PCP. SW also encouraged pt to reach out to Dr. Alaniz's office and they may be able to assist with placement from the community if pt's PCP is not able to do so. Pt states understanding. Original Note: Social Work Note ERNIE updated that Berenice ([phone]) with Dr. Alaniz's office is stating pt is not doing well at home since pt's Right Total Hip and they are recommending pt go to SNF from the community. Berenice requesting call back to inquire how to get pt to SNF from Community. ERNIE placed a call to Yanet with [employer] just to inquire about pt's insurance. Yanet states pt's insurance is not waiving pre-certs anymore, pt would need pre-cert. Yanet states SNF would need paperwork from PCP and pt would need COVID test as well from the insurance. ERNIE placed a call to Berenice at Dr. Alaniz's office. ERNIE introduced self and role at [facility]. ERNIE explained the process of SNF, that there are only certain SNF that accept pt's insurance and that pt will need pre-cert. ERNIE explained that typically pt's will need to go through their PCP to get pt's placed from the community. Berenice states she will call pt's PCP Dr. Ladd to let them know pt will need SNF placement from the community. SW informed Berenice that this worker can call pt and review list of SNF that accept pt's insurance and that pt will need to discuss SNF with PCP. Berenice states understanding. SW placed a call to pt and left message to call this worker back regarding SNF. SW waiting for call back from pt. Carly Rosales FRONT LOADER RESIDENTIAL DRIVER, FLATWORK SUPERVISOR
== END 2020-12-09 15:36 | disposition home or self-care (01) | DRG 470 ==
LOC: ACINP 09:30 → MS2 16:53
PROVIDERS: Anesthesiology; Admitting Provider Orthopaedic Surgery; PCP Internal Medicine; Referring Provider Orthopaedic Surgery; Visit Provider Orthopaedic Surgery
PROC: 8E0Y0CZ Robotic Assisted Procedure of Lower Extremity, Open Approach (ICD-10-PCS; CPT 27130; principal; 2020-12-08 11:55)
DX: M16.11 Unilateral primary osteoarthritis, right hip (principal); M06.9 Rheumatoid arthritis, unspecified; M79.7 Fibromyalgia; M51.36 Other intervertebral disc degeneration, lumbar region
CPT/HCPCS: 36415; 73502; 80048; 82962; 82985; 83735; 85027; 85610; 85730; 86850; 86900; 86901; 87081; 88305; 88311; 93005; 97110; 97162; 97166; 97530; 97535; 99251; C1713; C1776; J7120; G0463

== ENCOUNTER 2021-04-12 09:30 | Outpatient (RCR) | payer MEDICARE, MEDICAID, SELFPAY ==
--- NOTE | 2020-12-14 08:34 | HP.PTEVAL_ITS ---
Patient's Visit Information ASTER LOMELI is a 65 year old F referred to Physical Therapy by Dr. Jean-Paul Alaniz DO with a diagnosis of R DELTA. Date of Evaluation: 12/11/20 Physical Therapist: Andrews Cyr DPT - Visit Plan Frequency: 3x /Week Duration: 6 Weeks Plan: Start with gentle ROM exercises and light isometric- progressing to functional strengthening. Progress gait as tolerated with focus on increasing time walking at home. May use ice as needed for pain control. - Subjective Pt. is here today for her initial evaluation with diagnosis of R DELTA. Pt. reports overall her hip is doing well, but has felt nauseated since going home. She has talked to her doctor about her medication involving her nausea. Pt. arrives with FWW with good tolerance to walking. Pt. reports no N/T, no double vision, no calf pain, no fever. Pt. has been home for 1 night with good tolerance. She is sleeping okay, but has been more concerned with her nausea at this point in time. Pt. acknowledges her hip precautions and reports a good adherence to them. Pt. has not tried her exercises from the hospital with reports I just haven't felt up to it. She has tried walking frequently in home. Pt. is hopeful to get back to recreational walking without limitations and overall have improved pain in her R hip. - Pain R hip Pain Intensity (Out of 10): 2 Pain Intensity Range: 0, 5 - Objective POSTURE: Pt. has slight flexed posture with use of FWW for stability in stance. Slight lateral wt. shift to L side. PALPATION: Pt. has bandage in place, to remove in 2 days. Pt. has tenderness along lateral hip and gluteal range. Swelling, but none pitting noted. Negative Homans sign. NEURO: normal DTR of BLEs. Normal sensation in BLEs. ROM: R hip: passive: flexion 90deg, abd 30deg, ext 5deg, ER/IR not tested. AROM: flexion 60deg (heel slide). MMT: RLE: ankle 5/5 throughout, knee: ext 4+/5, flexion 4/5; hip flexion 3/5, abd 3-/5, ext 3- /5. Core strength- poor. GAIT: Pt. ambulates with FWW with decreased L step length (2 inch step through noted), Pt. uses FWW heavily during R stance phase. Pt. reports mild increase in R hip pain during stance phase. TUsec with FWW. - Balance/Special Test Scores Lower Extremity Functional Score: 17 WOMAC Total Score: 79 WOMAC Percentatge: 17.7100 - Goals Goal 1:: LTG: Pt. to be I with HEP. Goal Time Frame: 4-6 Weeks Goal 2:: STG: pt. to sleep 5+ hours in bed with 0-2/10 pain in R hip. Goal Time Frame: 2-4 Weeks Goal 3:: LTG: Pt. to complete TUG testing with time less than 10sec without use of AD. Goal Time Frame: 4-6 Weeks Goal 4:: STG: pt. to ambulate with improved gait pattern with use of SPC with 0- 2/10 pain in R hip. Goal Time Frame: 2-4 Weeks Goal 5:: LTG: Pt. to ambulate unlimited distances with 0-1/10 pain in R hip with normal gait pattern. Goal Time Frame: 4-6 Weeks Goal 6:: LTG: Pt. to have increased R hip AROM of R hip to 90deg flexion, 45deg abd, and 10deg of extension allowing for increased functional mobility. Goal Time Frame: 4-6 Weeks - Rehabilitation Potential Physical Therapy Diagnosis: Pt. has signs and symptoms consistent with R DELTA. Pt. has marked hypomobility, weakness, difficulty walking and increased pain. Pt. would benefit from PT to work on above limitations progressing back to all recreational walking and home chores without limitations. Rehabilitation Potential: Excellent - Anticipated Interventions Patient/Client Instruction: Educate patient on: Condition, Plan of Care, Risk Factors, Benefits of Fitness Program For the Purpose of:: To facilitate caregiver knowledge, To improve self management, To prevent re-injury, To improve ability to perform tasks related to life management Therapeutic Exercise to Include: Strength training, Power training, Balance training, Coordination, Agility training, Body mechanics, Postural training, Flexibilty training, Gait and locomotor training, Passive ROM, Active ROM, Dynamic Lumbar Stabilization For the Purpose of:: To decrease pain, To increase ROM, To improve nutrient delivery to tissue, To increase oxygenation perfusion, To improve muscle performance and motor function, To improve ability to perform ADL's, To increase tolerance to activity/condition/position, To improve gait and locomotor functions, To improve health of tissue, To decrease soft tissue restriction, To increase flexibility/ROM, To improve endurance, To improve balance Manual Therapy Techniques to Include: Mobilization, Soft tissue mobilization For the Purpose of:: To decrease pain, To decrease swelling/inflammation, To increase ROM, To improve nutrient delivery to tissue, To increase oxygenation perfusion, To improve muscle performance and motor function, To improve ability to perform ADL's Cryotherapy (ice pack, ice massage): Yes For the Purpose of:: To decrease pain, To decrease swelling/inflammation, To increase ROM, To improve nutrient delivery to tissue Thank you for the opportunity to evaluate your patient. For Medicare and Medicare HMO plans, please review the plan of care and approve it. It will need to be FAXED BACK to us at [phone] for Medicare purposes. For Medicare only, by signing this I certify the plan of care. Please let me know if there are questions or concerns regarding this plan of care. Physician Signature: Date:
--- NOTE | 2021-01-18 14:10 | HP.PTREVAL_ITS ---
Dr. Jean-Paul Alaniz, DO, It has been my pleasure to treat ASTER LOMELI over the last 2 visits for R DELTA. Please see the progress note below for an update on the physical therapy plan of care! Subjective: Pt reports she has been doing better since last outpatient visit. She reports her incision is looking really good. Pt also reports she has been walking around her house with no difficulty. Pt states she hasn't been able to get her shoes on easily, she has to slip it on. Objective/Function: ROM: RIGHT AROM: hip flexion 90 degrees, extension 3 degrees. STRENGTH: Right hip flexor 4 , extensor , knee flexor 4+, extensor 4+. Gait: antalgic gait, w/ decreased weight bearing on R LE. Pt. was evaluated then was sent to for PT for 2 weeks. She reports she is doing much better and is no longer having an nausea. Pt. did have many questions about hip precautions. She is to maintain for 12 weeks per physician office. Plan Plan: Continue with strengthening exercises, improve strength of hip musculature, continued hip precautions past 90 degrees flexion, IR and adduction. Focus on functional strengthening of abduction, extension, and flexion. Balance/Gait/Functional tests - Balance/Special Test Scores Lower Extremity Functional Score: 29 WOMAC Total Score: 79 WOMAC Percentage: 17.7100 Goals Goal 1:: LTG: Pt. to be I with HEP. Goal Time Frame: 4-6 Weeks Goal Progress: Progressing Goal 2:: STG: pt. to sleep 5+ hours in bed with 0-2/10 pain in R hip. 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 Goal Time Frame: 2-4 Weeks Goal Progress: Progressing Goal 3:: LTG: Pt. to complete TUG testing with time less than 10sec without use of AD. Goal Time Frame: 4-6 Weeks Goal 4:: STG: pt. to ambulate with improved gait pattern with use of SPC with 0- 2/10 pain in R hip. NEW GOAL: Pt able to ambulate with no AD with 0/10 pain. Goal Time Frame: 2-4 Weeks Goal Progress: Progressing Goal 5:: LTG: Pt. to ambulate unlimited distances with 0-1/10 pain in R hip with normal gait pattern. Goal Time Frame: 4-6 Weeks Goal Progress: Progressing Goal 6:: LTG: Pt. to have increased R hip AROM of R hip to 90deg flexion, 45deg abd, and 10deg of extension allowing for increased functional mobility. Goal Time Frame: 4-6 Weeks Goal Progress: Progressing Anticipated Interventions Patient/Client Instruction: Educate patient on: Condition, Plan of Care, Risk Factors, Benefits of Fitness Program For the Purpose of:: To facilitate caregiver knowledge, To improve self m anagement, To prevent re-injury, To improve ability to perform tasks related to life management Therapeutic Exercise to Include: Strength training, Power training, Balance tra ining, Coordination, Agility training, Body mechanics, Postural training, Flexibilty training, Gait and locomotor training, Passive ROM, Active ROM, Dynamic Lumbar Stabilization For the Purpose of:: To decrease pain, To increase ROM, To improve nutrient delivery to tissue, To increase oxygenation perfusion, To improve muscle performance and motor function, To improve ability to perform ADL's, To increase tolerance to activity/condition/position, To improve gait and locomotor functions, To improve health of tissue, To decrease soft tissue restriction, To increase flexibility/ROM, To improve endurance, To improve balance Manual Therapy Techniques to Include: Mobilization, Soft tissue mobilization For the Purpose of:: To decrease pain, To decrease swelling/inflammation, To increase ROM, To improve nutrient delivery to tissue, To increase oxygenation perfusion, To improve muscle performance and motor function, To improve ability to perform ADL's Cryotherapy (ice pack, ice massage): Yes For the Purpose of:: To decrease pain, To decrease swelling/inflammation, To i ncrease ROM, To improve nutrient delivery to tissue Please do not hesitate to contact me at [phone] by phone or if you have questions or concerns regarding this new plan of care! Sincerely, Andrews Cyr DPT
--- NOTE | 2021-03-22 08:43 | HP.PTREVAL ---
Dr. Jean-Paul Alaniz, DO, It has been my pleasure to treat ASTER LOMELI over the last 9 visits for R DELTA. Please see the progress note below for an update on the physical therapy plan of care! Subjective: Pt. reports overall doing well. She is back to a lot of her household activities. She is walking without AD. She still has some soreness. She saw doctor whom gave her full release and is able to progress ROM as tolerated. Pt. reports 3/10 pain today. Objective/Function: Pt. is stiff into flexion, ER, and extension motions. Cont. to progress these as able. Pt. is walking much better without AD. She is negotiating stairs with 1 HR without much issues. She does have some weakness with ER, ABD, extension. Cont. to progress these along with stretching to increase tolerance to all functional mobility. Plan Plan: Progress ROM as tolerated in order to increase ability to complete ADLs without issues. Add in hip abd, ER, extension strengthening. Progress functional mobility tolerance including stairs. Balance/Gait/Functional tests - Balance/Special Test Scores Lower Extremity Functional Score: 45 TUG Test Time Seconds: 11 Tug Test: <20 sec.=mostly independent WOMAC Total Score: 79 WOMAC Percentage: 17.7100 Goals Goal 1:: LTG: Pt. to be I with HEP. Goal Time Frame: 4-6 Weeks Goal Progress: Progressing Goal 2:: STG: pt. to sleep 5+ hours in bed with 0-2/10 pain in R hip. 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 Goal Time Frame: 2-4 Weeks Goal Progress: Progressing Goal 3:: LTG: Pt. to complete TUG testing with time less than 10sec without use of AD. Goal Time Frame: 4-6 Weeks Goal Progress: Goal Met Goal 4:: STG: pt. to ambulate with improved gait pattern with use of SPC with 0-2/10 pain in R hip. NEW GOAL: Pt able to ambulate with no AD with 0/10 pain. Goal Time Frame: 2-4 Weeks Goal Progress: Progressing Goal 5:: LTG: Pt. to ambulate unlimited distances with 0-1/10 pain in R hip with normal gait pattern. Goal Time Frame: 4-6 Weeks Goal Progress: Progressing Goal 6:: LTG: Pt. to have increased R hip AROM of R hip to 90deg flexion, 45deg abd, and 10deg of extension allowing for increased functional mobility. Goal Time Frame: 4-6 Weeks Goal Progress: Progressing Anticipated Interventions Patient/Client Instruction: Educate patient on: Condition, Plan of Care, Risk Factors, Benefits of Fitness Program For the Purpose of:: To facilitate caregiver knowledge, To improve self management, To prevent re-injury, To improve ability to perform tasks related to life management Therapeutic Exercise to Include: Strength training, Power training, Balance training, Coordination, Agility training, Body mechanics, Postural training, Flexibilty training, Gait and locomotor training, Passive ROM, Active ROM, Dynamic Lumbar Stabilization For the Purpose of:: To decrease pain, To increase ROM, To improve nutrient delivery to tissue, To increase oxygenation perfusion, To improve muscle performance and motor function, To improve ability to perform ADL's, To increase tolerance to activity/condition/position, To improve gait and locomotor functions, To improve health of tissue, To decrease soft tissue restriction, To increase flexibility/ROM, To improve endurance, To improve balance Manual Therapy Techniques to Include: Mobilization, Soft tissue mobilization For the Purpose of:: To decrease pain, To decrease swelling/inflammation, To increase ROM, To improve nutrient delivery to tissue, To increase oxygenation perfusion, To improve muscle performance and motor function, To improve ability to perform ADL's Cryotherapy (ice pack, ice massage): Yes For the Purpose of:: To decrease pain, To decrease swelling/inflammation, To increase ROM, To improve nutrient delivery to tissue Please do not hesitate to contact me at [phone] by phone or if you have questions or concerns regarding this new plan of care! Sincerely, Andrews Cyr DPT
== END 2021-04-12 19:00 | disposition home or self-care (01) ==
LOC: PT 09:30
PROVIDERS: PCP Internal Medicine; Referring Provider Orthopaedic Surgery; Visit Provider Orthopaedic Surgery
DX: Z47.1 Aftercare following joint replacement surgery (principal); Z96.641 Presence of right artificial hip joint
CPT/HCPCS: 97110; 97161; 97164; 97530

== ENCOUNTER → 2021-08-13 | Outpatient (CLI) | payer MEDICARE, MEDICAID, SELFPAY ==
[2021-08-13 15:12] LABS: Absolute Lymphocyte Count 2.97 X10^3/uL (0.83-4.51); Absolute Neutrophil Count 5.6 X10^3/uL (2.0-7.7); Basophil% 1.1 % (0-1); Eosinophil# 0.21 X10^3/uL; Eosinophils% 2.2 % (0-5); Hematocrit 46.5 % (37-47); Hemoglobin 15.3 g/dL (12.0-15.0); Lymphocyte # 2.97 X10^3/ul (0.83-4.51); Lymphocyte % 31.3 % (19-41); Mean Corp Hgb Conc 32.9 g/dL (32-36); Mean Corpuscular Hgb 31.1 pg (27.0-32.0); Mean Corpuscular Volume 94.5 fL (81-99); Mean Platelet Vol. 12.1 fl (6.2-12.0); Monocyte% 6.3 % (0-10); NRBC Flagged by Analyzer 0 % (0-5); Neutrophil # 5.59 X10^3/uL (2.7-7.7); Neutrophil % 58.9 % (47-70); Platelet Count 218 K/mm3 (150-450); RBC Distribution Width CV 12.3 % (11.6-14.6); RBC Distribution Width SD 42.8 fl (35.1-43.9); Red Blood Count 4.92 M/mm3 (4.2-5.4); White Blood Count 9.5 K/mm3 (4.4-11.0)
[2021-08-13 15:26] LABS: AST(SGOT) 28 U/L (15-37); Alanine Aminotransfer ALT/SGPT 43 U/L (13-56); Albumin, Serum 3.8 g/dL (3.2-5.0); Alkaline Phosphatase 124 U/L (45-117); Anion Gap 7 (5-15); BUN 11 mg/dL (7-18); BUN/Creat Ratio 13.8 RATIO (10-20); Calcium,Total 9.2 mg/dL (8.5-10.1); Chloride 107 mmol/L (98-107); Cholesterol 171 mg/dL (200); EST Glomerular Filtration Rate 77 mL/min (>60); Est Glom Filt Rate - Afr Amer 93 mL/min (>60); Glucose 99 mg/dL (74-106); High Density Lipoprotein 45 mg/dL; Potassium 3.7 mmol/L (3.5-5.1); Protein, Total 7.8 g/dL (6.4-8.2); Sodium Level 139 mmol/L (136-145); Triglycerides 233 mg/dL; Very Low Density Lipoprotein 47 mg/dL (5-40)
== END | disposition home or self-care (01) ==
LOC: BIMLAB 13:53
PROVIDERS: PCP Internal Medicine; Referring Provider Internal Medicine; Visit Provider Internal Medicine
DX: I10 Essential (primary) hypertension (principal)
CPT/HCPCS: 36415; 80053; 80061; 85025

== ENCOUNTER 2021-12-31 05:19 | Day surgery (SDC) | payer MEDICARE, MEDICAID, SELFPAY ==
--- NOTE | 2021-12-31 | COLBX_PTH ---
PATIENT: ASTER LOMELI LOC: EN U#:[id number] AGE/SX: 66/F ROOM: RE12/31/[address]: Dr. Vinicius Artis DO : 1955 BED: DIS: 12/31/2021 SPEC #: [id number] RECD: 12/31/21 13:22 STATUS: CATHY ARLENE #: [id number] DANIEL: 12/31/21 00:[address]: Vinicius Artis DEPT: SURGICAL PATHOLOGY RECD BY: Abbe Oh ENTERED: 12/31/21 13:22 SP TYPE: COLON BX OT DR: Dr. Soo Ladd MD Tissues: A - Ileum, NOS B - COLON BIOPSY Procedures: Surgery Specimen Level IV HEADER OPERATION: Colonoscopy, biopsy PRE-OP DIAGNOSIS: Constipation, GERD TISSUE SUBMITTED: A ? Terminal ileum biopsy, B ? Random colonic biopsy MICROSCOPIC DIAGNOSIS A. Terminal ileum, biopsy: Fragments of small intestinal mucosa, no pathologic diagnosis. B. Colon, random biopsy: Fragments of colonic mucosa with a few pigment laden macrophages consistent with focal melanosis coli. SJ:hubert 01/03/2022 MICROSCOPIC DESCRIPTION Slides are reviewed. GROSS DESCRIPTION A - Received in fixative is one container labeled with the patient's name and designated terminal ileum. The specimen consists of two irregular fragments of light yu soft tissue that in aggregate measure 0.5 x 0.3 x 0.1 cm. The specimen is totally submitted in one cassette. B - Received in fixative is one container labeled with the patient's name and designated random colon biopsy. The specimen consists of multiple irregular fragments of light yu soft tissue that in aggregate measure 1 x 0.5 x 0.1 cm. The specimen is totally submitted in one cassette. / AM:hubert 12/31/2021 TC:5 CPT: 25297 x2
[2021-12-31] MEDS: Lactated Ringers 1,000 ML 15 ML IV (05:35)
[2021-12-31 05:57] VITALS: BP 180/63; PULSE 74; RESP 16; TEMP 36.8; O2SAT 100; BMI 29.8
--- NOTE | 2021-12-31 06:40 | PCM.HP.BLA ---
History and Physical Date of Admission: 12/31/21 YOVNNE LOMELI, is a 66 F who presents to the office today for Follow up. Yvonne established with this clinic 11.06.20 for abdominal pain, GERD, dysphagia and constipation. History of recurrent diverticulitis s/p sigmoid resection. Constipation requires manual disimpaction at times with periodic episodes of diarrhea. GERD occurring daily despite use of PPI. Yvonne underwent hip surgery early 2021 and it was decided she would recover from this prior to pursuing further GI assistance. She was last seen 12.22.20 US RUQ 10.15.19 with hepatic fatty infiltration and increased echogenicity of the pancreas. Noted cholecystectomy. EGD 11.11.20 finding LA Grade A reflux esophagitis; erosive gastropathy; duodenal erosion, duodenitis; gastritis. Reports she is doing well overall. Continues to have intermittent LLQ discomfort. GERD has resolved. Dysphagia periodically with water when she is in bed/lying down. Constipation continues to be an issue; she is not requiring manual disimpaction. FD guard daily and digestive enzymes with each meal are helpful. She was using SennaTabs 3 tabs a day, currently using 2 tabs daily. Amitiza, Relistor and Movantik were prescribed previously, but insurance either would not cover or she had concerns about swelling as she already has difficulty with this. Oil previously attempted without effect. ROS Const Constitutional: No anorexia, fatigue, fever(s), weight change or sleep problems Eyes Eyes: No change in vision ENT ENT: No abnormal hearing, difficulty swallowing, mouth lesions, tongue swelling or throat swelling Resp Respiratory: No cough or shortness of breath Cardio Cardiology: No chest pain at rest, chest pain with exertion, shortness of breath or dyspnea on exertion Gastro GI: No difficulty swallowing Genitourinary-Female: No difficulty urinating or burning urination Musc Musculoskeletal: No joint pain, joint swelling, muscle weakness or decreased muscle mass Skin Skin: No hair loss in leg, yellowing of the eye, itchy eyes, rash, skin ulcer or skin swelling Neuro Neurology: No abnormal hearing, abnormal movements, confusion, unsteady gait/balance or memory loss Psych Psychiatric: No anxiety, No confusion and No memory loss Endo Endocrine: No fatigue or weight change Aller/Imm Allergy/Immunologic: No itchy eyes, throat swelling or tongue swelling Ramon/Lymp Hematologic/Lymphatic: No easy bleeding, easy bruising or enlarged lymph nodes Exam Const General: cooperative and healthy appearing [facility] Head: normocephalic and atraumatic Ears: hearing grossly normal bilaterally Nose: external nose normal Face and sinus: normal facial exam and face symmetric Mouth: oral mucosae normal Throat: posterior oropharynx normal Eyes General: appearance normal, both eyes and all related structures Resp Effort & Inspection: normal respiratory effort Auscultation: Bilateral: Clear to Auscultation Cardio Rate: regular rate Skin Other: Grouped vesicular lesions to the right forearm with erythema and swelling to the right cheek. Neuro General: patient alert Psych Appearance: grossly normal Mental Status: mental status grossly normal Quality Reporting Tobacco Screening ([facility] 138) Smoking Status: Never smoker Assessment and Plan Assessment and Plan (1) Constipation: ?Status:?Chronic ?Plan: Chronic idiopathic constipation.? I will put her on lactulose therapy along with an increase in caffeinated products in particular coffee.? Hopefully along with a probiotic and digestive enzymes she will be able to have a normal bowel movement every day or every other day.? She will be scheduled for colonoscopy to evaluate her lower GI tract.? He has a history of adenomatous polyps. (2) GERD (gastroesophageal reflux disease): ?Status:?Chronic ?Plan: Continue as did plan to resolve therapy.? As long as she takes the medicine she does not have any side effects.? She should undergo an upper endoscopy due to the fact that she has a history of chronic gastroesophageal reflux disease and to be screened for Robert's esophagus.? She can have it done at the same time she has a colonoscopy. ? ? ? Medications: New lactulose 10 grams (15 mL) PO DAILY 600 mL 1RF ? ? sod sulf-pot chloride-mag sulf 1.479-0.188- 0.225 gram (Sutab) ?take 12 tabs two days prior to colonoscopy with 16 ounces of water followed by 32 ounces of water. Repeat same procedure day prior to procedure. 24 tabs 0RF ? ? I have examined the patient and the H&P has been reviewed. There are no clinical changes since date of exam.
[2021-12-31 07:05] VITALS: BP 123/101; BP 180/63; PULSE 71; RESP 14; TEMP 36.2; O2SAT 100
--- NOTE | 2021-12-31 07:07 | OP.COLON_ITS ---
Patient Name: Yvonne Montano Procedure Date: 12/31/2021 6:42 AM Date of : 1955 Age: 66 Procedure: Colonoscopy Indications: Abdominal pain in the left lower quadrant Providers: Vinicius Artis DO Medicines: Monitored Anesthesia Care Patient Profile: Last Colonoscopy: date unknown. Unable to locate last colonoscopy report. Complications: No immediate complications. Procedure: Pre-Anesthesia Assessment: - Prior to the procedure, a History and Physical was performed, and patient medications and allergies were reviewed. The risks and benefits of the procedure and the sedation options and risks were discussed with the patient. All questions were answered and informed consent was obtained. Patient identification and proposed procedure were verified by the physician in the pre-procedure area. Mental Status Examination: alert and oriented. Airway Examination: normal oropharyngeal airway and neck mobility. Respiratory Examination: clear to auscultation. CV Examination: normal. Prophylactic Antibiotics: The patient does not require prophylactic antibiotics. Prior Anticoagulants: The patient has taken no previous anticoagulant or antiplatelet agents. After reviewing the risks and benefits, the patient was deemed in satisfactory condition to undergo the procedure. The anesthesia plan was to use monitored anesthesia care (MAC). Immediately prior to administration of medications, the patient was re-assessed for adequacy to receive sedatives. The heart rate, respiratory rate, oxygen saturations, blood pressure, adequacy of pulmonary ventilation, and response to care were monitored throughout the procedure. The physical status of the patient was re-assessed after the procedure. After I obtained informed consent, the scope was passed under direct vision. Throughout the procedure, the patient's blood pressure, pulse, and oxygen saturations were monitored continuously. The colonoscope was introduced through the anus and advanced to the terminal ileum. The colonoscopy was performed without difficulty. The patient tolerated the procedure well. The quality of the bowel preparation was adequate. Scope In: 6:48:04 AM Scope Withdrawal Time 0 hours 8 minutes 34 seconds Scope Out: 6:59:25 AM Total Procedure Duration Time 0 hours 11 minutes 21 seconds Findings: The digital rectal exam findings include decreased sphincter tone. A few small-mouthed diverticula were found in the recto-sigmoid colon and sigmoid colon. An area of mildly congested mucosa was found in the entire colon. Biopsies were taken with a cold forceps for histology. Verification of patient identification for the specimen was done. Estimated blood loss was minimal. The terminal ileum appeared normal. Biopsies were taken with a cold forceps for histology. Verification of patient identification for the specimen was done. Estimated blood loss was minimal. Impression: - Decreased sphincter tone found on digital rectal exam. - Diverticulosis in the recto-sigmoid colon and in the sigmoid colon. - Congested mucosa in the entire examined colon. Biopsied. - The examined portion of the ileum was normal. Biopsied. Recommendation: - Discharge patient to home. - Resume previous diet. - Continue present medications. - Await pathology results. - Repeat colonoscopy in 5 years for surveillance. Procedure Code(s): --- Professional --- 37195, Colonoscopy, flexible; with biopsy, single or multiple CPT copyright 2017 [employer]. All rights reserved. The codes documented in this report are preliminary and upon flow machine operator review may be revised to meet current compliance requirements. Vinicius Artis DO 12/31/2021 7:06:16 AM This report has been signed electronically. Number of Addenda: 0 Note Initiated On: 12/31/2021 6:42 AM
--- NOTE | 2021-12-31 07:07 | OP.CCLET_ITS ---
12/31/2021 Soo Ladd MD [address] [place] [address] [place] [address] Re : Colonoscopy procedure for Yvonne Moralezes Dear Dr. Ladd This procedure was performed on Friday, December 31, 2021. My impressions and recommendations are as follows: Impressions : - Decreased sphincter tone found on digital rectal exam. - Diverticulosis in the recto-sigmoid colon and in the sigmoid colon. - Congested mucosa in the entire examined colon. Biopsied. - The examined portion of the ileum was normal. Biopsied. Recommendations : - Discharge patient to home. - Resume previous diet. - Continue present medications. - Await pathology results. - Repeat colonoscopy in 5 years for surveillance. My findings are described in the full procedure note, which is enclosed. If I can be of further assistance, please feel free to contact me at . Sincerely, Vinicius Friend, 12/31/2021 7:06:16 AM This report has been signed electronically.
[2021-12-31 07:10] VITALS: BP 144/73; BP 180/63; PULSE 65; RESP 14; O2SAT 100
[2021-12-31 07:15] VITALS: BP 150/72; BP 180/63; PULSE 62; RESP 16; O2SAT 100
[2021-12-31 07:20] VITALS: BP 144/74; BP 180/63; PULSE 65; RESP 14; TEMP 36.1; O2SAT 100
[2021-12-31 07:35] VITALS: BP 180/63
== END 2021-12-31 07:56 | disposition home or self-care (01) ==
LOC: EN 05:20 → AC 05:22
PROVIDERS: PCP Internal Medicine; Referring Provider Internal Medicine; Visit Provider Internal Medicine Gastroenterology
PROC: 0DJD8ZZ Inspection of Lower Intestinal Tract, Via Natural or Artificial Opening Endoscopic (ICD-10-PCS; CPT 45378; principal; 2021-12-31 06:25)
DX: K57.30 Diverticulosis of large intestine without perforation or abscess without bleeding (principal); R10.32 Left lower quadrant pain; K21.9 Gastro-esophageal reflux disease without esophagitis; K59.09 Other constipation
CPT/HCPCS: 45380; 88305; J7120; J2405

== ENCOUNTER 2022-06-01 11:30 | Outpatient (RCR) | payer MEDICARE, MEDICAID, SELFPAY ==
--- NOTE | 2022-04-18 14:56 | HP.PTEVAL ---
Patient's Visit Information ASTER LOMELI is a 66 year old F referred to Physical Therapy by FLORIAN Quiñones with a diagnosis of LUMBOSACRAL DDD/RADICULOPATHY/SPONDYLOSIS/FACET ARTHROPATHY. Date of Evaluation: 04/18/22 Physical Therapist: Lily Medina, PT, Cert MDT - Visit Plan Frequency: 2-3x /Week Duration: 4-6 Weeks Plan: AQUATIC THERPAY FOR PAIN RELIEF, POSTURE CORRECTION/STRENGTHENING, INSTRUCTION IN APPROPRIATE BODY MECHANICS AND ACTIVITY MODIFICATIONS. DLS STARTING WITH A NEUTRAL SPINE PROGRESSING ROM TOLERATED. SHELIA LE ROM, STRETCHING AND STRENGTHENING. HEP INSTRUCTION. - Subjective Work/Leisure: UNEMPLOYEED. Disability: YES - SINCE 2006 FOR MULTIPLE MEDICAL CONDITIONS INCLUDING SHLD PAIN, FIBROMYALGIA AND DEPRESSION/ANXIETY. Present symptoms: WEAKNESS IN LEGS. LOW BACK PAIN. TAILBONE PAIN. LEGS HURT SOMETIMES TOO. PATIENT DENIES SHELIA LE NUMBNESS AND TINGLING. RIGHT LE PAIN > LEFT. Present since: CHRONIC. Pain Scale: WORST 10/10, LEAST 3/10. Currently: 3/10. Is it getting better, worse or staying the same: GETTING WORSE. Commenced as a result of: FLARED UP NOW FROM CLEANING OUT BASEMENT. Symptoms at onset: LOW BACK AND TAILBONE PAIN. Worse: CLEANING OUT THE BASEMENT, TOO MUCH SITTING, TOO MUCH STANDING, SOMETIMES LIFTING. Better: HEAT AND REST. Disturbed sleep: DIFFICULT TO FALL ASLEEP DUE TO BEING UNCOMFORTABLE IN R HIP AND LEG. Previous history/Previous treatment: PAIN MGMT PROCEEDURES - MOST RECENT WAS CAUDAL FEB 2022 THINKS IT HELPED BUT WAS GETTING BETTER BEFORE HAVING IT. NO BACK SURGERY. NO CHIROPRACTIC. NO PT THAT PATIENT CAN RE-CALL. Coughing/sneezing/straining: NEGATIVE. Gait: NORMAL. Bowel or Bladder Dysfunction: SOME UI. DENIES BOWEL INCONTINENCE. Accidents: NO. Unexplained weight loss: NO. Imaging: NONE RECENT. PMH/Recent major surgery: FIBROMYALGIA, R THR NOV 2020, ANXIETY/DEPRESSION. 2 RIGHT SHLD SURGERY WITH THE LAST ONE BEING 2019 - RCR. PARTIAL COLONECTOMY FOR DIVERTICULITIS. SHELIA FOOT ARTHRITIS. OSTEOPENIA. OTHER: PATIENT DENIES ANY PHYSICIAN RESTRICTIONS. - Objective Sitting/Standing Posture: FH. RSH'S. NO RELEVANT LATERAL LUMBAR SHIFT. RIGHT ILIAC CREST SLIGHTLY HIGHER THAN LEFT. Active Correction of posture: NE. Other Observations: THIS PATIENT AMBULATES INDEP'LY INTO PT WITHOUT ANY AD'S OR LOB. Sensory deficit: SHELIA LE LIGHT TOUCH SENSATION GROSSLY INTACT AND SYMMETRICAL. ROM deficit: MILD SHELIA HS AND GASTROC SOLEUS COMPLEX TIGHTNESS. Motor deficit: RIGHT LE: HIP 4/5, KNEE 4/5, ANKLE 5/5. LEFT LE: HIP 4-/5, KNEE 4-/5, ANDLE 5/5. Reflexes: 2/3 SHELIA LE'S. Dural Signs: POSITIVE RIGHT LE. Lumbar mvmt loss: flex - NIL. ext - MOD. R SG - MOD. L SG - MIN. PATIENT C/O INCREASE BUTTOCK PAIN. Core strength: POOR. Palpation: NO ACUTE LOWER THORACIC, LUMBAR, SACRAL OR HIP TENDERNESS. TREATMENT: NEUROMUSCULAR REEDUCATION - RETRAINING OF MVMT AND POSTURE FOR SITTING, LYING AND STANDING ACTIVITIES. PATIENT IS CLEANING OUT HER BASEMENT ON A DEADLINE DUE TO WORK THAT IS GOING TO BE ONE ON IT. EMPHASIZED IMPORTANCE OF AVOIDING COMBINATION OF BENDING, LIFTING AND TWISTING, FREQUENT BREAKS AND MORE FREQUENT TRIPS WITH GROWTH MEDIA MIXER MUSHROOM WEIGHTS. PATIENT COMMUNICATED A FAIR UNDERSTANDING AND NEED FOR RE-INFORCEMENT ANTICIPATED. - Balance/Special Test Scores Oswestry Low Back Score: 8 30 Second Chair Rise Test Seconds: 7 - Goals Goal 1:: DECREASE C/O LOW BACK PAIN Goal Time Frame: 4-6 Weeks Goal 2:: IMPROVE LIFTING, SITTING, STANDING, STAIR CLIMBING AND HOUSEWORK FUNCTION Goal Time Frame: 4-6 Weeks Goal 3:: INSTRUCT IN PROPHYLAXIS Goal Time Frame: 4-6 Weeks - Anticipated Interventions Patient/Client Instruction: Educate patient on: Condition, Plan of Care, Risk Factors For the Purpose of:: To improve self management Therapeutic Exercise to Include: Strength training, Body mechanics, Postural training, Flexibilty training, Neuromotor development, In an aquatic setting, Dynamic Lumbar Stabilization For the Purpose of:: To decrease pain, To increase ROM, To improve muscle performance and motor function, To increase tolerance to activity/condition/position, To improve ability of physical actions for home/community/work/leisure Thank you for the opportunity to evaluate your patient. For Medicare and Medicare HMO plans, please review the plan of care and approve it. It will need to be FAXED BACK to us at [phone] for Medicare purposes. For Medicare only, by signing this I certify the plan of care. Please let me know if there are questions or concerns regarding this plan of care. Physician Signature: Date:
--- NOTE | 2022-05-18 12:25 | HP.PTREVAL_ITS ---
Kylah Solano, BRITNEY-C, It has been my pleasure to treat ASTER LOMELI over the last 2 visits for LUMBOSACRAL DDD/RADICULOPATHY/SPONDYLOSIS/FACET ARTHROPATHY. Please see the progress note below for an update on the physical therapy plan of care! Subjective: PATIENT REPRORTS HAVING A CONSULT WITH DR. KAY SINCE PT EVAL AND HE AGREES WITH TRYING PT FOR HER BACK AND LEGS AND SENT ADDITIONAL ORDER. PATIENT DENIES ANY NEW SX'S SINCE INTIAL EVAL. STATES SHE WOULD LIKE TO DO LAND PT INSTEAD OF WATER THERAPY DUE TO HER DRY SKIN. PATIENT REPORTS THE LAST FLARE UP SHE HAD WAS THE MOST SEVERE ONE SHE HAS HAD AND HAD TO WALK WITH A WALKER FOR A FEW DAYS. PATIENT REPORTS DR. KAY X-RAY'D HER BACK AND R HIP AND NO SURGERY RECOMMENDED. May PROCEEDURE PENDING WITH DR. GRAY. Objective/Function: PATIENT WAS SEEN TODAY FOR RE-ASSESSMENT OF PROGRESS TOWARD THE SET PT GOALS AND THE NEED FOR FURTHER PHYSICAL THERAPY VS READINESS FOR DISCHARGE. UPON EXAM TODAY THERE ARE NO SIGNIFICANT CHANGES SINCE INITIAL EVAL AND PATIENT IS APPROPRIATE FOR TRIAL OF LAND PT. Plan Plan: POSTURE CORRECTION/STRENGTHENING, INSTRUCTION IN APPROPRIATE BODY MECHANICS AND ACTIVITY MODIFICATIONS. DLS STARTING WITH A NEUTRAL SPINE PROGRESSING ROM TOLERATED. SHELIA LE ROM, STRETCHING AND STRENGTHENING. HEP INSTRUCTION. Balance/Gait/Functional tests - Balance/Special Test Scores Oswestry Low Back Score: 8 30 Second Chair Rise Test Seconds: 7 Goals Goal 1:: DECREASE C/O LOW BACK PAIN Goal Time Frame: 4-6 Weeks Goal 2:: IMPROVE LIFTING, SITTING, STANDING, STAIR CLIMBING AND HOUSEWORK FUNCTION Goal Time Frame: 4-6 Weeks Goal 3:: INSTRUCT IN PROPHYLAXIS Goal Time Frame: 4-6 Weeks Anticipated Interventions Patient/Client Instruction: Educate patient on: Condition, Plan of Care, Risk Factors For the Purpose of:: To improve self management Therapeutic Exercise to Include: Strength training, Body mechanics, Postural training, Flexibilty training, Neuromotor development, In an aquatic setting, Dynamic Lumbar Stabilization For the Purpose of:: To decrease pain, To increase ROM, To improve muscle performance and motor function, To increase tolerance to activity/condition/position, To improve ability of physical actions for home/community/work/leisure Please do not hesitate to contact me at [phone] by phone or Fax: if you have questions or concerns regarding this new plan of care! Sincerely, Lily Medina, PT, Cert MDT
--- NOTE | 2022-06-01 12:00 | HP.PTDCSUM ---
It has been my pleasure to treat ASTER LOMELI referred by FLORIAN Quiñones, with the diagnosis of LUMBOSACRAL DDD/RADICULOPATHY/SPONDYLOSIS/FACET ARTHROPATHY for a total of 6 visit(s). Discharge Date: Please see the following information for a summary of their discharge status. Subjective: PATIENT REPORTS SHE IS HAVING SOME UPPER BACK PAIN NOW TOO. STILL HAVING LOW BACK PAIN. I CAN'T SAY THE PAIN IN MY BACK GOT WORSE LAST SESSION BUT OVER-ALL STATES SHE THINKS THERAPY IS CAUSING HER MORE PAIN. STATES SHE HAS NOT DONE HER HEP. I CAN'T REALLY SAY I AM FEELING IMPROVEMENT. 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 PATIENT REPORTS SHE DOESN'T THINK SHE WOULD BE AFRAID OF DOING THERAPY IF SHE HAD AN MRI AND IT DIDN'T SHOW ANYTHING SERIOUS GOING ON. LOW BACK PAIN Pain Intensity (Out of 10): 2 R LE Pain Intensity (Out of 10): 3 L LE Pain Intensity (Out of 10): 0 Objective/Function: IT IS DIFFICULT FOR THIS PT TO FOLLOW ALL OF PATIENTS REPORTS OF SX'S AND HOW THEY RELATE TO PT VS HER INDEP ADL'S. UPON EXAM TODAY THERE ARE NO SIGNIFICANT OBJECTIVE CHANGES COMPARED TO INITIAL EVAL. PATIENT IS NOT IMPROVING AND HAS COMPLAINT OF MULTIPLE AREAS OF PAIN ON HER BODY THAT ARE HARD TO INTERPRET. THIS PT RECOMMENDED PHYSICIAN RE-ASSESSMENT AND PATIENT IS AGREEABLE. Goal 1:: DECREASE C/O LOW BACK PAIN Goal Progress: Not Progressing Goal 2:: IMPROVE LIFTING, SITTING, STANDING, STAIR CLIMBING AND HOUSEWORK FUNCTION Goal Progress: Not Progressing Goal 3:: INSTRUCT IN PROPHYLAXIS Goal Progress: Not Progressing Plan: D/C DUE TO LACK OF PROGRESS AND PATIENTS RELUCTANCE TO DO EX. If there are questions or concerns regarding this patient's physical therapy, please feel free to call me at [phone]. Thank you for the referral of this patient. Sincerely, Lily Medina, PT, Cert MDT Balance/Gait/Functional tests - Balance/Special Test Scores Oswestry Low Back Score: 8 30 Second Chair Rise Test Seconds: 7
== END 2022-06-01 12:47 | disposition home or self-care (01) ==
LOC: PT 11:30
PROVIDERS: PCP Internal Medicine; Referring Provider Nurse Practitioner Family; Visit Provider Nurse Practitioner Family
DX: M51.37 Other intervertebral disc degeneration, lumbosacral region (principal); M47.27 Other spondylosis with radiculopathy, lumbosacral region; M79.7 Fibromyalgia; M46.96 Unspecified inflammatory spondylopathy, lumbar region
CPT/HCPCS: 97110; 97112; 97162; 97164

== ENCOUNTER → 2022-07-14 | Outpatient (CLI) | payer MEDICARE, MEDICAID, SELFPAY ==
--- NOTE | 2022-07-14 13:53 | MRI_ITS ---
STUDY: MRI LUMBAR SPINE WITHOUT CONTRAST REASON FOR EXAM: Female, 67 years old. LUMBAR SACRAL RADICULOPATHY, lbp, right leg pain TECHNIQUE: Standardized fat and water weighted pulse sequences were obtained in the sagittal and axial planes. COMPARISON: September 26, 2022 FINDINGS: T12-L1: Normal endplates. Normal disc height, hydration and morphology. Normal bilateral facet joints. Normal central canal and bilateral lateral recesses. Normal bilateral intervertebral neural foramina. Normal lumbar lordosis. There is no substantial scoliosis. Normal conus medullaris that terminates at L1 L1-2: Normal endplates. Normal disc height, hydration and morphology. Normal bilateral facet joints. Normal central canal and bilateral lateral recesses. Normal bilateral intervertebral neural foramina. L2-3: Normal endplates. Normal disc height, hydration and morphology. Normal bilateral facet joints. Normal central canal and bilateral lateral recesses. Normal bilateral intervertebral neural foramina. L3-4: Normal endplates. Normal disc height, desiccation and minor annular bulge and tiny bilateral foraminal disc protrusions... Normal bilateral facet joints. Normal central canal and bilateral lateral recesses. Mild to moderate bilateral neural foraminal encroachment. L4-5: Grade 1 spondylolisthesis normal disc space height with desiccation of disc and minor bulging disc osteophyte complex.. Facet arthropathy and thickening of ligamenta flava.. Normal central canal. Mild bilateral lateral recess stenosis and mild to moderate neural foraminal stenosis. L5-S1: Normal endplates. Normal disc height, desiccation and minimal annular bulge.. Normal bilateral facet joints. Normal central canal and bilateral lateral recesses. Normal bilateral intervertebral neural foramina Normal visualized sacral ala. Normal visualized paraspinous soft tissue structures. No significant change since prior exam except for resolution of previously noted bone marrow edema within the pedicles of L5.. MRI/Spine Lumbar (Routine) IMPRESSION: No evidence for acute fracture or other significant bony pathology.. Mild multilevel spinal stenosis at L3-4 and L4-5 secondary to disc disease and facet arthropathy. Electronically Signed: Jose Guadalupe Hernandez MD at 21:38 EDT ,
== END | disposition home or self-care (01) ==
LOC: MRI 13:15
PROVIDERS: PCP Internal Medicine; Referring Provider Nurse Practitioner Acute Care; Visit Provider Nurse Practitioner Acute Care
DX: M46.1 Sacroiliitis, not elsewhere classified (principal); M53.3 Sacrococcygeal disorders, not elsewhere classified; M51.37 Other intervertebral disc degeneration, lumbosacral region; M51.26 Other intervertebral disc displacement, lumbar region; M54.17 Radiculopathy, lumbosacral region; M47.817 Spondylosis without myelopathy or radiculopathy, lumbosacral region
CPT/HCPCS: 72148

== ENCOUNTER → 2022-07-29 | Outpatient (CLI) | payer MEDICARE, MEDICAID, SELFPAY ==
[2022-07-29 16:29] LABS: Absolute Lymphocyte Count 3.28 X10^3/uL (0.83-4.51); Absolute Neutrophil Count 5.5 X10^3/uL (2.0-7.7); Basophil# 0.09 X10^3/uL; Basophil% 0.9 % (0-1); Eosinophil# 0.21 X10^3/uL; Eosinophils% 2.2 % (0-5); Hemoglobin 15.2 g/dL (12.0-15.0); Lymphocyte # 3.28 X10^3/ul (0.83-4.51); Lymphocyte % 33.7 % (19-41); Mean Corp Hgb Conc 33.8 g/dL (32-36); Mean Corpuscular Hgb 31.8 pg (27.0-32.0); Mean Corpuscular Volume 94.1 fL (81-99); Mean Platelet Vol. 11.5 fl (6.2-12.0); Monocyte# 0.68 X10^3/uL; NRBC Flagged by Analyzer 0 % (0-5); Neutrophil # 5.45 X10^3/uL (2.7-7.7); Platelet Count 209 K/mm3 (150-450); RBC Distribution Width SD 42.2 fl (35.1-43.9); Red Blood Count 4.78 M/mm3 (4.2-5.4); White Blood Count 9.7 K/mm3 (4.4-11.0)
[2022-07-29 16:47] LABS: ALB/GLOB Ratio 1.1 RATIO (0.9-2.4); AST(SGOT) 34 U/L (15-37); Alanine Aminotransfer ALT/SGPT 48 U/L (13-56); Alkaline Phosphatase 105 U/L (45-117); Anion Gap 8 (5-15); BUN 17 mg/dL (7-18); BUN/Creat Ratio 19.5 RATIO (10-20); Calcium,Total 9.3 mg/dL (8.5-10.1); Chloride 105 mmol/L (98-107); Cholesterol 191 mg/dL (200); Creatinine, Serum 0.87 mg/dL (0.55-1.02); EST Glomerular Filtration Rate 69 mL/min (>60); Est Glom Filt Rate - Afr Amer 84 mL/min (>60); Globulin 3.8 g/dL (2.2-4.2); Glucose 110 mg/dL (74-106); High Density Lipoprotein 42 mg/dL; Potassium 4.4 mmol/L (3.5-5.1); Protein, Total 7.8 g/dL (6.4-8.2); Sodium Level 140 mmol/L (136-145); Triglycerides 290 mg/dL; Very Low Density Lipoprotein 58 mg/dL (5-40)
== END | disposition home or self-care (01) ==
LOC: BIMLAB 15:22
PROVIDERS: PCP Internal Medicine; Visit Provider Internal Medicine
DX: I10 Essential (primary) hypertension (principal)
CPT/HCPCS: 36415; 80053; 80061; 85025

== ENCOUNTER → 2022-09-21 | Outpatient (CLI) | payer MEDICARE, MEDICAID, SELFPAY ==
[2022-09-21 14:01] LABS: Bacteria 0 SEEN /hpf (None Seen); Mucous, Urine 0 SEEN /hpf (<or=2+); Red Blood Cells-Urine 0 SEEN /hpf (0-5); Squamous Epithelial Cells - UA 0 SEEN /hpf (5-10)
[2022-09-21 17:43] LABS: Color, Urine Yellow (Yellow); Glucose, Dipstick Normal (Normal); Ketone-Dipstick Negative (Negative); Leukocyte Esterase-Dipstick 500 /ul (Negative); Nitrite-Dipstick Negative (Negative); Occult Blood-Urine Negative /ul (Negative); Protein-Dipstick Negative (Negative); Specific Gravity, Urine 1.005 (1.002-1.030); Urine Bilirubin Dipstick Negative (Negative); Urine Clarity Sl. Cloudy (Clear); Urine Urobilinogen Normal (Normal); Urine pH 6.5 (5.0 - 8.0)
[2022-09-21 17:52] LABS: White Blood Cells 0-5 SEEN /hpf (0-5)
[2022-09-21 18:07] LABS: Absolute Lymphocyte Count 2.64 X10^3/uL (0.83-4.51); Absolute Neutrophil Count 6.8 X10^3/uL (2.0-7.7); Eosinophils% 1.9 % (0-5); Hemoglobin 14.9 g/dL (12.0-15.0); Lymphocyte # 2.64 X10^3/ul (0.83-4.51); Lymphocyte % 25.1 % (19-41); Mean Corp Hgb Conc 33.9 g/dL (32-36); Mean Corpuscular Hgb 32.3 pg (27.0-32.0); Mean Corpuscular Volume 95.2 fL (81-99); Mean Platelet Vol. 12.1 fl (6.2-12.0); Monocyte# 0.72 X10^3/uL; Monocyte% 6.8 % (0-10); NRBC Flagged by Analyzer 0 % (0-5); Neutrophil # 6.84 X10^3/uL (2.7-7.7); Platelet Count 219 K/mm3 (150-450); RBC Distribution Width CV 12.2 % (11.6-14.6); RBC Distribution Width SD 42.8 fl (35.1-43.9); Red Blood Count 4.62 M/mm3 (4.2-5.4); White Blood Count 10.5 K/mm3 (4.4-11.0)
[2022-09-21 18:12] LABS: Erythrocyte Sedimentation Rate 12 mm/hr (0-30)
[2022-09-21 18:38] LABS: AST(SGOT) 34 U/L (15-37); Alanine Aminotransfer ALT/SGPT 49 U/L (13-56); Albumin, Serum 3.9 g/dL (3.2-5.0); Alkaline Phosphatase 93 U/L (45-117); Anion Gap 7 (5-15); BUN 15 mg/dL (7-18); BUN/Creat Ratio 17.1 RATIO (10-20); Calcium,Total 9.1 mg/dL (8.5-10.1); Chloride 108 mmol/L (98-107); Creatinine, Serum 0.88 mg/dL (0.55-1.02); EST Glomerular Filtration Rate 68 mL/min (>60); Est Glom Filt Rate - Afr Amer 83 mL/min (>60); Globulin 3.9 g/dL (2.2-4.2); Glucose 134 mg/dL (74-106); Potassium 3.3 mmol/L (3.5-5.1); Protein, Total 7.8 g/dL (6.4-8.2); Rheumatoid Factor < 10.0 IU/mL (<15); Sodium Level 138 mmol/L (136-145)
[2022-09-21 20:09] LABS: Hepatitis B Surface Antibody Non-Reactive; Hepatitis C Antibody Non-Reactive (Nonreactive)
[2022-09-24 09:08] LABS: Anti-Nuclear Antibody Test Negative (.)
[2022-09-27 09:09] LABS: Hepatitis A AB, Total Negative (Negative); Hepatitis B Core Ab Total Negative (Negative); PROEL- A/G Ratio 1.3 (0.7-1.7); PROEL- Albumin 4.1 g/dL (2.9-4.4); PROEL- Alpha-1 Globulin 0.2 g/dL (0.0-0.4); PROEL- Alpha-2 Globulin 0.5 g/dL (0.4-1.0); PROEL- Beta Globulin 1.2 g/dL (0.7-1.3); PROEL- Gamma Globulin 1.3 g/dL (0.4-1.8); PROEL- Globulin, Total 3.2 g/dL (2.2-3.9); PROEL- TOTAL PROTEIN 7.3 g/dL (6.0-8.5)
== END | disposition home or self-care (01) ==
PROVIDERS: PCP Internal Medicine; Referring Provider Physician Assistant Medical; Visit Provider Physician Assistant Medical
DX: M31.0 Hypersensitivity angiitis (principal)
CPT/HCPCS: 36415; 80053; 81001; 82595; 84165; 85025; 85652; 86038; 86431; 86704; 86706; 86708; 86803

== ENCOUNTER 2022-10-17 15:22 | Outpatient (CLI) | payer MEDICARE, MEDICAID, SELFPAY ==
[2022-10-17 18:49] LABS: Free T3 2.5 pg/mL (2.18-3.98); T4 Free Direct 0.85 ng/dL (0.76-1.46); Thyroid Stim Hormone (TSH) 1.67 uIU/mL (0.358-3.74)
[2022-10-19 08:12] LABS: Thyroid Peroxidase AB < 9 IU/mL (0-34)
== END 2022-10-17 23:59 | disposition home or self-care (01) ==
LOC: MTLAB 15:23
PROVIDERS: PCP Internal Medicine; Referring Provider Physician Assistant Medical; Visit Provider Physician Assistant Medical
DX: M31.0 Hypersensitivity angiitis (principal)
CPT/HCPCS: 36415; 84439; 84443; 84481; 86376

== ENCOUNTER 2022-12-16 12:03 | Day surgery (SDC) | payer MEDICARE, MEDICAID, SELFPAY ==
--- NOTE | 2022-12-09 17:42 | PCM.HP.BLA ---
History and Physical Date of Admission: 12/16/22 HPI: The patient is a 67 year old female presenting for pre-operative visit. She is scheduled for Hysteroscopy D&C, for PMB and thickened endometrium on US on 01/16/23. Procedure discussed along with risks, benefits and complications. Other alternatives discussed for management. Consent form signed? Yes. ? ? PAST MEDICAL HISTORY PAST MEDICAL HISTORY Diagnosis Date ? Dysthymic disorder ? ? Depression (non-psychotic) ? Essential hypertension ? ? Generalized anxiety disorder ? ? Anxiety, Generalized ? Irritable bowel syndrome ? ? Irritable bowel ? Myalgia and myositis, unspecified ? ? Osteopenia after menopause 06/2021 ? Rotator cuff injury ? ? R side ? ? PAST SURGICAL HISTORY PAST SURGICAL HISTORY Procedure Laterality Date ? CHOLECYSTECTOMY ? ? ? Cholecystectomy ? COLONOSCOPY ? 05/2009 ? COLONOSCOPY FLX DX W/COLLJ SPEC WHEN PFRMD ? 05/2006 ? Colonoscopy ? COLONOSCOPY FLX DX W/COLLJ SPEC WHEN PFRMD ? 11/13/2013 ? ESOPHAGOGASTRODUODENOSCOPY TRANSORAL DIAGNOSTIC ? ? ? EGD ? ESOPHAGOGASTRODUODENOSCOPY TRANSORAL DIAGNOSTIC ? 11/13/2013 ? EGD ? INJECTION ? 12/07/2022 ? back ? NEUROPLASTY &/TRANSPOS MEDIAN NRV CARPAL TUNNE ? ? ? Carpal tunnel decomp, right ? PAST SURGICAL HISTORY OF ? ? ? Removal bone spur right shoulder ? PAST SURGICAL HISTORY OF ? 09/15/2017 ? removal part of colon for diverticulitis ? SHOULDER SURGERY HX ? ? ? TONSILLECTOMY PRIMARY/SECONDARY <AGE 12 ? ? ? Tonsillectomy ? ? ? CURRENT MEDICATIONS Current Outpatient Medications Medication Sig Dispense Refill ? azelastine (ASTELIN) 0.1% nasal spray instill 2 sprays into each nostril twice a day ? ? ? buPROPion XL (WELLBUTRIN XL) 150 mg 24 hr tablet Take 150 mg by mouth every morning. ? ? ? cetirizine (ZYRTEC) 10 mg tablet Take 10 mg by mouth once daily. ? ? ? cyanocobalamin 1,000 mcg tab Take 1 tablet by mouth once daily. ? 0 ? ergocalciferol, vitamin D2, 2,000 unit tab Take 1 tablet by mouth once each week. (Patient taking differently: Take 1 tablet by mouth one time a week. Daily) ? 0 ? estradiol (ESTRACE) 0.01 % (0.1 mg/gram) vaginal cream Use 0.5g vaginally at bedtime for 2 weeks then 1-3 time/weeks for maintenance. 42.5 g 2 ? fluorometholone (FML LIQUID FILM) 0.1 % ophthalmic suspension Use 1 Drop in both eyes twice daily. ? ? ? L. acidophilus-L. rhamnosus 15 billion cell cap Take 1 capsule by mouth once daily. FLORAJEN WOMEN. If on antibiotic, take at least 1-2 hours before or after antibiotic. KEEP REFRIGERATED 30 capsule 11 ? norethindrone (AYGESTIN) 5 mg tablet Take 1 tablet TID until bleeding stops, the BID x 3 days, the daily x 3 days. 35 tablet 0 ? OTC PRODUCT Take by mouth once daily. FD vanessa For acid reflux ? ? ? pantoprazole DR (PROTONIX) 40 mg tablet Take 40 mg by mouth once daily. ? ? ? RESTASIS MULTIDOSE 0.05 % drop put 1 drop in into both eyes twice a day ? ? ? SENOKOT-S 8.6-50 mg per tablet Take 2 tablets by mouth daily at bedtime. Daily, Every other day to every other day as needed ? ? ? tiZANidine (ZANAFLEX) 4 mg tablet Take 1 tablet by mouth once daily. ? ? ? traMADol (ULTRAM) 50 mg tablet take 1 tablet by mouth at bedtime if needed for pain ? ? ? No current facility-administered medications for this visit. ? ? ALLERGIES: Reglan [Metoclopramide Hcl], Amoxicillin, Doxycycline, and Phentolamine ? PERSONAL HISTORY: SOCIAL HISTORY Social History ? Tobacco Use ? Smoking status: Never ? Smokeless tobacco: Never Vaping Use ? Vaping Use: Never used Substance Use Topics ? Alcohol use: No ? Drug use: No ? FAMILY HISTORY: FAMILY HISTORY FAMILY HISTORY Problem Relation Age of Onset ? Heart Mother ? ? Hypertension Mother ? ? Lipids Father ? ? Diabetes Paternal Grandmother ? ? Breast Cancer Maternal Aunt ? ? Breast Cancer Maternal Aunt ? ? ? REVIEW OF SYMPTOMS: GENERAL: denies fevers or chills ENDOCRINOLOGY: has not been on steroids Cardiology : denies palpitations or chest pain Respiratory: denies SOB or cough Hematology: denies history of prolonged bleeding or easy bruising or VTE Allergy: Denies history of personal or family history of allergy to anesthesia ? PHYSICAL EXAMINATION: ? VITALS: Blood pressure 124/72, pulse 64, resp. rate 16, height 5' (1.524 m), weight 148 lb (67.1 kg), last menstrual period 08/31/2008. ? GENERAL: The patient is well nourished, well hydrated in no acute distress. , The patient is oriented to time, place, and person. NECK: Supple. No lynphadenopathy, normal thyroid, no thyromegaly. LUNGS: Clear to auscultation bilaterally. no wheezes, rhonchi or rales HEART: Regular rate and rhythm, Normal heart sounds, and No murmurs or gallops ? IMPRESSION: PMB/ thickened endometrium ? PLAN: The risks/benefits/alternatives and personal involved for the planned hsyteroscopy D&C with possible polyp resection were reviewed with the patient. Her questions were answered to her satisfaction and she desires to proceed. Consent was signed. I reviewed with her postop instructions and expectations. ? ? I have reviewed and updated past medical and surgical history, medications and allergies Assessment & Plan Assessment/Plan (1) Postmenopausal bleeding: (2) Endometrial thickening on ultrasound:
[2022-12-16] VITALS (8 sets, daily range): BP systolic 126–145; BP diastolic 47–66; PULSE 64–68; RESP 16; TEMP 36.3–36.5; O2SAT 95–100; BMI 28.4
[2022-12-16] MEDS: Lactated Ringers 1,000 ML 15 ML IV (12:36)
[2022-12-16] MEDS: Ketorolac 15 MG/ML Vial IV (12:38)
[2022-12-16] MEDS: Acetaminophen 500 MG Tablet 1000 MG PO (12:38)
[2022-12-16 12:51] LABS: Hematocrit 48.6 % (37-47); Mean Corp Hgb Conc 32.9 g/dL (32-36); Mean Corpuscular Hgb 30.9 pg (27.0-32.0); Mean Corpuscular Volume 93.8 fL (81-99); Mean Platelet Vol. 11.5 fl (6.2-12.0); Platelet Count 247 K/mm3 (150-450); RBC Distribution Width CV 12.3 % (11.6-14.6); Red Blood Count 5.18 M/mm3 (4.2-5.4); White Blood Count 10.1 K/mm3 (4.4-11.0)
--- NOTE | 2022-12-16 13:55 | ECC_PTH ---
PATIENT: ASTER LOMELI LOC: [facility] [place] U#:[id number] AGE/SX: 67/F ROOM: RE12/16/[address]: Dr. Meagan Link MD : [id number] BED: DIS: 12/16/2022 SPEC #: [id number] RECD: 12/16/22 18:13 STATUS: CATHY REKaitlin #: [id number] DANIEL: 12/16/22 13:[address]: Meagan Link DEPT: SURGICAL PATHOLOGY RECD BY: Abbe Oh ENTERED: 12/19/22 10:58 SP TYPE: ECC OTHR DR: Dr. Soo Ladd MD Tissues: Endocervical Procedures: Surgery Specimen Level IV HEADER OPERATION: Hysteroscopy, dilation and curettage PRE-OP DIAGNOSIS: Postmenopausal bleeding, endometrial thickening on ultrasound TISSUE SUBMITTED: Endometrial curettings MICROSCOPIC DIAGNOSIS Endometrial curettings: Proliferative endometrium. Fragments of benign ectocervical mucosa and mucous. SJ:hubert 12/20/2022 MICROSCOPIC DESCRIPTION Slides are reviewed. GROSS DESCRIPTION Received in fixative is one container labeled with the patient's name and designated endometrial curettings. The specimen consists of multiple fragments of hemorrhagic soft tissue that in aggregate measure 1.0 x 0.7 x 0.1 cm. The specimen is totally submitted in one cassette. / GERRI:hubert 12/19/2022 TC:5 CPT: 17085
[2022-12-16] MEDS: Lidocaine 1% /Epi 1:100 (50ml) 50 ML VIAL (15:46)
--- NOTE | 2022-12-16 15:50 | OP.PCM_ITS ---
Problems Associated Problem List Diagnoses (1) Endometrial thickening on ultrasound: (2) Postmenopausal bleeding: Report of Operation Date of Procedure: 12/16/22 Pre-Operative Diagnosis: thickened endometrium Post-Operative Diagnosis: same Surgery/Procedure Performed:: Hysteroscopy D&C Description of Surgical Findings:: normal cervix and vagina, atrophic thin endometrium Surgeon: Meagan Link dental assistant instructor: None Type of Anesthesia: MAC/Supplemental/Local Anesthesiologist: Agnieszka Richey Special Medications: none Specimen's removed: endometrial curettings Drains: none Estimated Blood Loss (mL): 5 Fluids Replaced: 500 Description of Procedure: The patient was taken to the OR where she was prepped and draped in dorsal lithotomy position. The weighted speculum was placed in the vagina and the anterior lip of the cervix was grasped with a single-tooth tenaculum. A paracervical block was administered with 1% lidocaine with 1-100,000 epinephrine solution. The cervix was dilated serially with Hegar dilators. The 5mm hysteroscope was placed into the uterine cavity and the above findings were noted. Bilateral tubal ostia were identified. The hysteroscope was removed. A gentle sharp curettage was done of the uterine cavity. The instruments were removed from the vagina. The specimen was handed off and sent to pathology. All sponge and needle counts were correct. Vaginal sweep was performed by me. The patient was awakened and taken to the recovery room in stable condition. Hysteroscopic ins: 100cc normal saline Hysteroscopic outs:0cc Findings: Endometrial cavity: Normal, no fibroids or polyps noted Cervix: Normal Vagina: Normal Grafts/Implants Used: none Procedure Start Time: 15:45 Procedure Stop Time: 15:50 Complications none Admit VTE Documentation VTE Present on Admission: No VTE Mechan Device Prophylaxis: SCD's VTE Pharm Prophylaxis ordered?: No Reason prophylaxis not ordered:: Procedure Not Indicated
--- NOTE | 2022-12-16 15:54 | PCM.DC ---
Discharge Instructions Diet Discharge Diet: No restrictions Activity May shower in (days): 1 May resume sexual activity in: 2 weeks Lifting Restrictions: none Dressing / Incision Call your doctor if your incision/area has: Sudden Increased Bleeding and Foul Smelling Discharge Call your doctor if you observe: Fever of 101 or Higher and Using more than 1 pad per hour (for 2 hrs in a row) Follow Up Care Please Follow Up With: Meagan Link MD When: You do not need a postop appointment. We will contact you with your pathology. Call [phone] to make an appointment or with any concerns or send a [employer] message. Test Results: Test results from this visit will be discussed in further detail at your follow-up appointment, if applicable. Discharge Plan Admission Attending Provider: Meagan Link Primary Care Provider: Soo Ladd Discharge Orders/Prescriptions Prescriptions: No Action fluorometholone 0.1 % drops,suspension 1 drp OPHTHALMIC DAILY Zyrtec 10 mg capsule 10 mg PO DAILY cyanocobalamin (vitamin B-12) 1,000 mcg capsule 1,000 mcg PO DAILY FDgard 25-20.75 mg capsule 1 cap PO QHS ascorbic acid (vitamin C) 500 mg tablet 500 mg PO DAILY (DME) compress.stocking,knee,reg,lrg Misc See Rx Instructions .MEDSUPPLY Qty: 2 1RF Rx Instructions: wear daily for venous insufficiency 30-40 mmHg turmeric 400 mg capsule 400 mg PO DAILY (DME) compress.stocking,knee,reg,lrg Misc See Rx Instructions .MEDSUPPLY Qty: 2 1RF Rx Instructions: wear daily for venous insufficiency 20-30 mmHg tizanidine 4 mg tablet 4 mg PO QHS cyclosporine [Restasis] 1 DROP dropperette 1 drp EACH EYE BID vitamin B complex [B Complex-Vitamin B12] Tablet 1 tab PO DAILY cholecalciferol (vitamin D3) 25 mcg (1,000 unit) tablet 1,000 unit PO DAILY Probiotic-Digestive Enzymes 5-250 mg capsule 1 cap PO BID calcium citrate 200 mg (950 mg) Tablet 600 mg PO DAILY sennosides [Senna Laxative] 8.6 mg tablet 8.6 mg PO DAILY fiber Tablet,Chewable 1 tab PO DAILY Collagen Plus Vitamin C 125-740 mg capsule 1 cap PO DAILY tramadol 50 mg tablet 50 mg PO QHS Rx Instructions: Discontinue oxycodone. pantoprazole 40 mg tablet,delayed release (DR/EC) 40 mg PO 1200 Rx Instructions: take 1 tablet by mouth once daily buspirone 15 mg tablet 15 mg PO PRN PRN (Reason: Anxiety) Qty: 90 2RF cephalexin 500 mg capsule 2,000 mg PO BID Qty: 4 1RF Rx Instructions: Take within 1 hour prior to dental procedure Referrals / Follow Up: Soo Ladd MD [Primary Care Provider] - Disposition Disposition (needs filled in before D/C Order can be placed): Home, Self Care
== END 2022-12-16 17:24 | disposition home or self-care (01) ==
LOC: SDC 12:08 → AC 12:10
PROVIDERS: PCP Internal Medicine; Visit Provider Obstetrics & Gynecology
PROC: 0UB98ZZ Excision of Uterus, Via Natural or Artificial Opening Endoscopic (ICD-10-PCS; CPT 58558; principal; 2022-12-16 13:40)
DX: N95.0 Postmenopausal bleeding (principal); F41.1 Generalized anxiety disorder; F34.1 Dysthymic disorder; I10 Essential (primary) hypertension; K21.9 Gastro-esophageal reflux disease without esophagitis; Z86.19 Personal history of other infectious and parasitic diseases
CPT/HCPCS: 58558; 00952; 85027; 88305; J7120; J2405

== ENCOUNTER → 2023-03-06 | Outpatient (CLI) | payer MEDICARE, MEDICAID, SELFPAY ==
[2023-03-06 17:39] LABS: Anion Gap 7 (5-15); BUN 11 mg/dL (7-18); Chloride 107 mmol/L (98-107); Creatinine, Serum 0.74 mg/dL (0.55-1.02); EST Glomerular Filtration Rate 84 mL/min (>60); Est Glom Filt Rate - Afr Amer 101 mL/min (>60); Glucose 114 mg/dL (74-106); Potassium 3.9 mmol/L (3.5-5.1); Sodium Level 141 mmol/L (136-145)
== END | disposition home or self-care (01) ==
LOC: BIMLAB 15:14
PROVIDERS: PCP Internal Medicine; Visit Provider Internal Medicine
DX: I10 Essential (primary) hypertension (principal)
CPT/HCPCS: 36415; 80048

== ENCOUNTER → 2023-03-13 | Outpatient (CLI) | payer MEDICARE, MEDICAID, SELFPAY ==
--- NOTE | 2023-03-13 13:02 | CT_ITS ---
STUDY: CT ABDOMEN AND PELVIS WITH CONTRAST REASON FOR EXAM: Female, 67 years old. RLQ Pain. Chronic constipation RADIATION DOSAGE (If Supplied By Facility): CTDIvol = ( 14.83 ) mGy, DLP = ( 709.49 ) mGycm TECHNIQUE: Transaxial images were obtained from the dome of the diaphragm to the symphysis pubis with oral contrast. IV 100mL Isovue-370 was administered. Sagittal and coronal images were reconstructed. Individualized dose optimization techniques were used for this CT. COMPARISON: None. FINDINGS: The visualized lung bases are unremarkable. The visualized portions of the heart are within normal limits. Normal liver. There are surgical clips in the gallbladder fossa consistent with a prior cholecystectomy. Normal spleen. Normal pancreas. Normal bilateral adrenal glands. Normal right kidney. Normal left kidney. Normal visualized stomach. Normal small intestine. Normal colon. Suture line in the distal sigmoid colon. The appendix is visualized and appears normal. Normal abdominal aorta. Normal inferior vena cava. Normal retroperitoneum. Normal urinary bladder. Normal abdominal wall. Status post right hip arthroplasty which produces streak artifact and obscures the pelvis. CT/Abdomen/Pelvis WITH Contrast IMPRESSION: Normal enhanced CT of the abdomen and pelvis. Electronically Signed: Kalen Mcmahon MD at 23:17 EST ,
== END | disposition home or self-care (01) ==
LOC: CT 12:57
PROVIDERS: PCP Internal Medicine; Referring Provider Internal Medicine; Visit Provider Internal Medicine
DX: K59.09 Other constipation (principal); R10.31 Right lower quadrant pain
CPT/HCPCS: 74177; Q9967

== ENCOUNTER → 2023-07-28 | Outpatient (CLI) | payer MEDICARE, MEDICAID, SELFPAY ==
[2023-07-28 15:54] LABS: Absolute Lymphocyte Count 2.63 X10^3/uL (0.83-4.51); Absolute Neutrophil Count 4.1 X10^3/uL (2.0-7.7); Basophil# 0.09 X10^3/uL; Basophil% 1.2 % (0-1); Eosinophil# 0.26 X10^3/uL; Eosinophils% 3.4 % (0-5); Hematocrit 45.1 % (37-47); Hemoglobin 14.5 g/dL (12.0-15.0); Lymphocyte # 2.63 X10^3/ul (0.83-4.51); Lymphocyte % 34.6 % (19-41); Mean Corp Hgb Conc 32.2 g/dL (32-36); Mean Corpuscular Hgb 30.9 pg (27.0-32.0); Mean Platelet Vol. 12.4 fl (6.2-12.0); Monocyte# 0.51 X10^3/uL; Monocyte% 6.7 % (0-10); NRBC Flagged by Analyzer 0 % (0-5); Platelet Count 205 K/mm3 (150-450); RBC Distribution Width CV 12.5 % (11.6-14.6); RBC Distribution Width SD 44.9 fl (35.1-43.9); White Blood Count 7.6 K/mm3 (4.4-11.0)
[2023-07-28 16:18] LABS: ALB/GLOB Ratio 0.9 RATIO (0.9-2.4); AST(SGOT) 19 U/L (15-37); Alanine Aminotransfer ALT/SGPT 26 U/L (13-56); Albumin, Serum 3.7 g/dL (3.2-5.0); Alkaline Phosphatase 79 U/L (45-117); Anion Gap 8 (5-15); BUN 18 mg/dL (7-18); BUN/Creat Ratio 20.4 RATIO (10-20); Calcium,Total 8.8 mg/dL (8.5-10.1); Chloride 107 mmol/L (98-107); Cholesterol 198 mg/dL (200); Creatinine, Serum 0.88 mg/dL (0.55-1.02); EST Glomerular Filtration Rate 68 mL/min (>60); Est Glom Filt Rate - Afr Amer 82 mL/min (>60); Glucose 91 mg/dL (74-106); High Density Lipoprotein 56 mg/dL; Protein, Total 7.7 g/dL (6.4-8.2); Sodium Level 140 mmol/L (136-145); Triglycerides 98 mg/dL; Very Low Density Lipoprotein 20 mg/dL (5-40)
== END | disposition home or self-care (01) ==
LOC: MTLAB 11:43
PROVIDERS: PCP Internal Medicine; Referring Provider Internal Medicine; Visit Provider Internal Medicine
DX: I10 Essential (primary) hypertension (principal)
CPT/HCPCS: 36415; 80053; 80061; 85025

== ENCOUNTER → 2023-10-05 | Outpatient (CLI) | payer MEDICARE, MEDICAID, SELFPAY ==
--- NOTE | 2023-10-05 12:15 | BD_ITS ---
STUDY: DUAL ENERGY X-RAY ABSORPTIOMETRY / DXA REASON FOR EXAM: Female, 68 years old. Post menopausal TECHNIQUE: Bone Mineral Density (BMD) measurements of lumbar spine and left hip were obtained. COMPARISON: Comparison is made with prior study dated September 08, 2009. FINDINGS: Lumbar Spine (L1-L4): g/cm2 (0.768) / T-score (-2.3) / Z-score (-0.3) Findings are suggestive of osteopenia with a high fracture risk. Left Femur Total: g/cm2 (0.790) / T-score (-1.2) / Z-score (0.2) Left Femoral Neck: g/cm2 (0.688) / T-score (-1.5) / Z-score (0.2) The T-Scores on the most recent prior examination were: Lumbar Spine (L1-L4): There has been worsening of bone density since the previous examination. Left Femur Total: which represents a worsening of 11.2%. BD/Dexa Bone Density Study IMPRESSION: The patient is considered osteopenic as outlined below according to World [place] Organization (WHO) criteria with a high fracture risk. There has been worsening of bone density since the previous examination. Reference Information: The T-score is the number of standard deviations above or below the standard which is normal for young adults at their peak bone mineral density. The World Health Organization (WHO) interprets the T-scores as follows: Above -1 Normal bone density Between -1 and -2.5 Osteopenia Equal to / or below -2.5 Osteoporosis As a practical clinical guideline, osteopenia may be graded as follows: Mild -1 through -1.5 Moderate -1.6 through -2.0 Severe -2.1 through -2.4 The Z-score is the number of standard deviations above or below age-matched controls. A Z-score of less than -1.5 would be considered abnormal. References: 1. NIH Osteoporosis and Related Bone Diseases www osteo.org 2. International Society for Clinical Densitometry www iscd.org 3. National Osteoporosis Foundation www nof.org Electronically Signed: Tae Perez MD at 9:16 EDT ,
== END | disposition home or self-care (01) ==
LOC: OPBD 12:15
PROVIDERS: PCP Internal Medicine; Referring Provider Internal Medicine; Visit Provider Internal Medicine
DX: Z78.0 Asymptomatic menopausal state (principal)
CPT/HCPCS: 77080

== ENCOUNTER → 2023-10-19 | Outpatient (CLI) | payer MEDICARE, MEDICAID, SELFPAY ==
[2023-10-19 16:37] LABS: Anion Gap 8 (5-15); BUN 19 mg/dL (7-18); BUN/Creat Ratio 23.2 RATIO (10-20); Calcium,Total 9.4 mg/dL (8.5-10.1); Chloride 101 mmol/L (98-107); Creatinine, Serum 0.82 mg/dL (0.55-1.02); EST Glomerular Filtration Rate 74 mL/min (>60); Est Glom Filt Rate - Afr Amer 89 mL/min (>60); Glucose 106 mg/dL (74-106); Potassium 4.2 mmol/L (3.5-5.1); Sodium Level 137 mmol/L (136-145)
[2023-10-19 16:40] LABS: Vitamin D,25 Hydroxy 34.6 ng/mL
== END | disposition home or self-care (01) ==
LOC: BIMLAB 14:49
PROVIDERS: PCP Internal Medicine; Referring Provider Internal Medicine; Visit Provider Internal Medicine
DX: M85.80 Other specified disorders of bone density and structure, unspecified site (principal)
CPT/HCPCS: 36415; 80048; 82306

== ENCOUNTER → 2024-01-15 | Outpatient (CLI) | payer MEDICARE, MEDICAID, SELFPAY ==
--- NOTE | 2024-01-15 13:51 | RAD_ITS ---
INDICATION: PAIN VERSUS RADICULAR SYMPTOMS EXAMINATION/TECHNIQUE: X-RAY - XR Hip Unilateral with Pelvis when performed; 3 Views COMPARISON: FINDINGS: There is a right hip prosthesis in place. No displaced fracture seen in this frontal view. No soft tissue swelling or gas. RAD/HIP, UNI W/ Pelvis 2-3 Views IMPRESSION: No evidence of displaced pelvic or hip fracture. Electronically Signed: Fer Go DO at 0:01 EST ,
== END | disposition home or self-care (01) ==
PROVIDERS: PCP Internal Medicine; Referring Provider Clinical Nurse Specialist Adult Health; Visit Provider Clinical Nurse Specialist Adult Health
DX: M25.552 Pain in left hip (principal)
CPT/HCPCS: 73502

== ENCOUNTER → 2024-06-05 | Outpatient (CLI) | payer MEDICARE, MEDICAID, SELFPAY ==
[2024-06-05 12:27] LABS: Absolute Neutrophil Count 3.2 X10^3/uL (2.0-7.7); Basophil# 0.11 X10^3/uL; Basophil% 1.5 % (0-1); Eosinophil# 0.42 X10^3/uL; Eosinophils% 5.7 % (0-5); Hemoglobin 15.6 g/dL (12.0-15.0); Lymphocyte % 42.2 % (19-41); Mean Corp Hgb Conc 33.9 g/dL (32-36); Mean Corpuscular Volume 94.3 fL (81-99); Mean Platelet Vol. 12.5 fl (6.2-12.0); Monocyte# 0.54 X10^3/uL; Monocyte% 7.3 % (0-10); NRBC Flagged by Analyzer 0 % (0-5); Neutrophil # 3.17 X10^3/uL (2.7-7.7); Neutrophil % 43.2 % (47-70); Platelet Count 209 K/mm3 (150-450); RBC Distribution Width CV 12.1 % (11.6-14.6); RBC Distribution Width SD 42.4 fl (35.1-43.9); Red Blood Count 4.88 M/mm3 (4.2-5.4); White Blood Count 7.4 K/mm3 (4.4-11.0)
[2024-06-05 14:39] LABS: ALB/GLOB Ratio 1.3 RATIO (0.9-2.4); AST(SGOT) 25 U/L (<=31); Alanine Aminotransfer ALT/SGPT 19 U/L (<=34); Albumin, Serum 4.2 g/dL (3.4-4.8); Alkaline Phosphatase 70 U/L (35-104); Anion Gap 11 (5-15); BUN 18 mg/dL (4-19); BUN/Creat Ratio 25.5 RATIO (10-20); Calcium,Total 9.5 mg/dL (7.6-11.0); Carbon Dioxide 23.5 mmol/L (21.0-32.0); Chloride 104 mmol/L (98-108); Cholesterol 177 mg/dL (<=200); Creatinine, Serum 0.71 mg/dL (0.70-1.20); EST Glomerular Filtration Rate 93 (>60); Globulin 3.2 g/dL (2.2-4.2); Glucose 108 mg/dL (70-99); High Density Lipoprotein 46 mg/dL; Low Density Lipoprotein Calc. 83 mg/dL; Potassium 3.9 mmol/L (3.3-5.1); Protein, Total 7.4 g/dL (5.9-8.4); Sodium Level 139 mmol/L (133-145); Total Bilirubin 0.34 mg/dL (0.00-1.30); Triglycerides 238 mg/dL; Very Low Density Lipoprotein 48 mg/dL (5-40); cholesterol:hdl ratio screen 3.81
[2024-06-06 12:09] LABS: ANTINUCLEAR ANTIBODIES DIRECT Negative (Negative)
== END | disposition home or self-care (01) ==
LOC: BIMLAB 09:50
PROVIDERS: PCP Internal Medicine; Referring Provider Internal Medicine; Visit Provider Internal Medicine
DX: I10 Essential (primary) hypertension (principal); R68.2 Dry mouth, unspecified
CPT/HCPCS: 36415; 80053; 80061; 85025; 86038

== ENCOUNTER → 2024-06-07 | Outpatient (CLI) | payer MEDICARE, MEDICAID, SELFPAY ==
--- NOTE | 2024-06-07 14:42 | RAD_ITS ---
EXAM: XR Chest, 2 Views CLINICAL INDICATION: CHRONIC COUGH TECHNIQUE: Frontal and lateral views of the chest. COMPARISON: No relevant prior studies available. FINDINGS: LUNGS AND PLEURAL SPACES: Unremarkable. No consolidation. No pneumothorax. HEART: Unremarkable. No cardiomegaly. MEDIASTINUM: Unremarkable. Normal mediastinal contour. BONES/JOINTS: Unremarkable. No acute fracture. RAD/Chest PA and Lateral IMPRESSION: No acute cardiopulmonary process. Reading Location: [facility]
== END | disposition home or self-care (01) ==
LOC: MTRAD 14:42
PROVIDERS: PCP Internal Medicine; Referring Provider Internal Medicine; Visit Provider Internal Medicine
DX: R05.3 Chronic cough (principal)
CPT/HCPCS: 71046

== ENCOUNTER → 2024-08-01 | Outpatient (CLI) | payer MEDICARE, SELFPAY ==
--- NOTE | 2024-08-01 16:30 | CT_ITS ---
PROCEDURE: ABDOMEN/PELVIS WITH CONTRAST 08/01/2024 REASON FOR EXAM: LLQ ABD PAIN TECHNIQUE: Abdomen and pelvis CT with intravenous and oral contrast. Coronal and Sagittal reconstruction series were provided. PATIENT PREPARATION: Per protocol CONTRAST: 95 mL Isovue-300 One or more dose reduction techniques were used (e.g., Automated exposure control, adjustment of the mA and/or kV according to patient size, use of iterative reconstruction technique. RADIATION DOSE SUMMARY: CTDlvol: 16.6 mGy DLP: 781 mGycm COMPARISON: CT abdomen and pelvis on 03/13/2023 FINDINGS: Lung bases: Unremarkable Liver: Normal size. No mass. Gallbladder: Surgically absent. Spleen: Normal size. Pancreas: Normal size without evidence of mass, surrounding inflammation, or ductal dilation. Adrenals: Unremarkable Kidneys: No hydronephrosis or stone. Subcentimeter hypodensities in the right kidney are too small to characterize. Bladder: Unremarkable Reproductive Organs: Unremarkable Bowel: Postoperative changes of the distal colon. No obstruction or inflammation. Colonic diverticulosis. Normal appendix. Lymph nodes: Unremarkable Vasculature: Mild diffuse atherosclerotic calcifications are noted. Bones: Right total hip arthroplasty. Grade 1 anterolisthesis of L4 on L5. CT/Abdomen/Pelvis WITH Contrast IMPRESSION: Unremarkable CT of the abdomen and pelvis. Reading Location: [id number]
== END | disposition home or self-care (01) ==
LOC: CT 14:10
PROVIDERS: PCP Internal Medicine
DX: R10.32 Left lower quadrant pain (principal); K59.00 Constipation, unspecified
CPT/HCPCS: 74177; Q9967

== ENCOUNTER 2024-10-21 08:44 | Emergency (ER) | payer MEDICARE, SELFPAY ==
[2024-10-21 08:45] VITALS: BP 161/71; PULSE 91; RESP 16; TEMP 37.1; O2SAT 97; BMI 31.0
--- NOTE | 2024-10-21 08:52 | ED.VIS.GI ---
HPI HPI - GI History of Present Illness Chief Complaint: Abd Pain Informant: patient Abdominal Pain/Flank Pain Onset: Yesterday Context: Gradual Onset Timing: Continuous Location: LUQ and LLQ Worsened by: Nothing Relieved by: - (Bending forward) Nausea/Vomiting/Emesis GI Symptom: Positive for Nausea; Negative for Vomiting Diarrhea/Melena/Hematochezia GI Symptom: Negative for Diarrhea, Melena or Hematochezia Associated Symptoms Associated Symptoms: Positive for Frequency; Negative for Dysuria or Hematuria Narrative Narrative: Patient presents with left lower abdominal pain that began yesterday. Patient states it is gradually getting worse. Patient describes it as cramping and sharp. Patient states it is mainly on the left side of her abdomen. Patient states nothing makes it worse. Patient states it did get better with bending forward and with taking analgesic medication last night. Patient admits to some nausea but denies any vomiting. Patient denies any diarrhea, melena, or hematochezia. Patient denies any dysuria or hematuria. 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 Lab test negative for COVID-19 virus Osteoarthritis of right hip Preoperative clearance Wears glasses Post-menopausal Bladder disease Back pain Arthritis History of hiatal hernia History of IBS History of diverticulitis Gastric reflux Non-smoker History of pain when walking History of stress test Dysphagia Hiatal hernia GERD (gastroesophageal reflux disease) Back problem Dermatitis Trochanteric bursitis of right hip Right hip pain Preventative health care Anxiety Anxiety Depression Thoracic stomach hernia Fibromyalgia Degenerated intervertebral disc Vitamin deficiency IBS (irritable bowel syndrome) Diverticulitis H/O emotional problems Carpal tunnel syndrome Arthritis Allergies Home Medications ?Medication ?Instructions ?Recorded ?Last Taken ?Type tizanidine 4 mg tablet 4 mg PO QHS spasms 10/15/18 10/20/24 History cyclosporine 0.05 % eye drops in a 1 drp EACH EYE BID dry eyes 11/08/19 10/20/24 History dropperette (Restasis) edmundo oil 25 mg-levomenthol 1 cap PO QHS 05/02/22 10/20/24 History 20.75 mg capsule (FDgard) cyanocobalamin (vitamin B-12) 1,000 mcg PO DAILY 05/02/22 10/20/24 History 1,000 mcg capsule ascorbic acid (vitamin C) 500 mg 500 mg PO DAILY 07/29/22 10/20/24 History tablet L. acidophilus 5 mg-digestive 1 cap PO BID colon 09/07/22 10/20/24 History enzymes combo no.5 250 mg capsule (Probiotic-Digestive Enzymes) compress.stocking,knee,reg,lrg #2 ea 09/07/22 Unknown Rx turmeric 400 mg capsule 400 mg PO DAILY 10/03/22 10/20/24 History compress.stocking,knee,reg,lrg #2 ea 11/28/22 Unknown Rx ascorbic acid 125 mg-collagen, 1 cap PO DAILY 12/12/22 10/20/24 History hydrolyzed 740 mg capsule (Collagen Plus Vitamin C) sennosides 8.6 mg tablet (Senna 8.6 mg PO DAILY PRN constipation 12/12/22 Unknown History Laxative) tramadol 50 mg tablet 50 mg PO QHS pain 12/12/22 10/20/24 History fluorometholone 0.1 % eye 1 drp ophthalmic (eye) DAILY PRN 09/08/23 10/20/24 History drops,suspension eyes azelastine 137 mcg (0.1 %) nasal 2 spray intranasal DAILY PRN nasal 01/15/24 Unknown Rx spray congestion #30 mL buspirone 15 mg tablet 15 mg PO PRN PRN Anxiety #90 tabs 01/15/24 Unknown Rx cholecalciferol (vitamin D3) 25 2,000 unit PO DAILY Check with 01/15/24 10/20/24 History mcg (1,000 unit) tablet primary doctor vitamin k PO 01/15/24 10/20/24 History ipratropium bromide 21 mcg (0.03 2 spray intranasal BID-TID PRN 06/07/24 Unknown Rx %) nasal spray postnasal drainage #30 mL pantoprazole 40 mg tablet,delayed 40 mg PO DAILY #90 tabs 08/13/24 10/20/24 Rx release hydrocortisone 2.5 % topical cream 1 applic topical BID PRN rash #28 10/03/24 Unknown Rx grams amoxicillin 875 mg-potassium 875 mg PO Q12H #20 TABLETS 10/21/24 Unknown Rx clavulanate 125 mg tablet fluconazole 150 mg tablet 150 mg PO DAILY 1 dose #1 TAB 10/21/24 Unknown Rx Allergy/AdvReac Type Severity Reaction Status Date / Time phentolamine (From Regitine) Allergy Hives Verified 10/21/24 08:45 amoxicillin AdvReac YEAST Verified 10/21/24 08:45 INFECTION Family History Sister Anemia Mother Anxiety Blood clot in vein Myocardial infarction Heart disease Hormone Problems Hypertension Kidney disease Psychiatric care Respiratory disease Thyroid disorder COPD (chronic obstructive pulmonary disease) Sleep apnea ulcer disease Grandmother Arthritis Diabetes CVA (cerebral vascular accident) Father Diverticulitis Hypertension High cholesterol Kidney disease Thyroid disorder ulcer disease Aunt Breast cancer Heart disease Skin cancer CVA (cerebral vascular accident) Daughter Depression Grandfather Myocardial infarction Other Crohn's disease Surgical History Hx of colonoscopy History of colectomy History of hip replacement History of esophagogastroduodenoscopy (EGD) Hx of arthroscopy of shoulder History of esophagogastroduodenoscopy (EGD) History of carpal tunnel release History of shoulder surgery History of cholecystectomy History of tonsillectomy Social History Smoking Status: Never smoker alcohol intake: never substance use type: does not use what type of physical activity do you participate in: none ROS ROS ED Constitutional Constitutional ED: Reports chills and subjective; Denies fever(s) Eyes Eyes: Denies blurry vision or change in vision ENT ENT ED: Denies rhinorrhea or sore throat Cardiovascular Cardiovascular: Denies chest pain or palpitations Respiratory/Chest Respiratory/Chest: Denies cough or dyspnea Gastrointestinal Gastrointestinal: Reports abdominal pain and nausea; Denies diarrhea, melena or vomiting Genitourinary Genitourinary ED: Reports urinary frequency; Denies dysuria or hematuria Musculoskeletal Musculoskeletal: Reports back pain and neck pain Integumentary Denies abscess or rash Neurologic Neurologic: Denies headache(s) or weakness Allergic/Immunologic Allergic/Immunologic ED: Denies mouth swelling or urticaria EXAM Physical Exam Const Vital Signs: 10/21/24 08:45 10/21/24 10:44 Temperature 98.7 F Temperature Source Temporal Pulse Rate 91 86 Respiratory Rate 16 16 Blood Pressure 161/71 H Blood Pressure Mean 101 Pulse Ox 97 Oxygen Delivery Method Room Air Positive well nourished and well developed Constitutional Narrative: BMI is 31.1. General Appearance ED: well developed and NAD HEENT Reports moist mucous membranes normocephalic and atraumatic Neck supple and no JVD Resp normal respiratory effort and clear to auscultation bilaterally Cardio regular rate and regular rhythm GI non-distended GI Narrative: There is diffuse tenderness but worse on the left. There is no rebound or guarding noted. Palpation: soft and tender epigastric, LLQ, RLQ, LUQ, RUQ, periumbilical and suprapubic; Negative for guarding or rebound tenderness present Extremity full ROM General Extremety ED: Negative for edema or tenderness General Extremity: Negative for edema Neuro CN's II-XII intact bilaterally, moves all extremities and no sensory deficits noted Sensorium / Orientation: alert Motor Exam: strength 5/5 throughout Psych mental status grossly normal MDM MDM MDM Narrative Medical decision making narrative: Differential diagnosis includes diverticulitis, ureteral calculus, pyelonephritis, urinary tract infection, gastroenteritis, colitis, pancreatitis, and dehydration. CBC will be obtained to assess for leukocytosis and anemia. Comprehensive metabolic profile will be obtained to assess for hepatic function, renal function, and electrolyte abnormality. Urinalysis will be obtained to assess for urinary tract infection and hematuria. Lipase will be obtained to assess for pancreatitis. CT scan of the abdomen and pelvis will be obtained to assess for bowel obstruction, perforation, diverticulitis, and colitis. History & Record Review Additional record(s) reviewed:: Prior outpatient record and Prior labs Lab Data Attestation: I reviewed the patient's lab results. Lab results narrative: CBC was reviewed. There is a mild leukocytosis of 14.2. The remainder is within normal limits. Comprehensive metabolic profile was reviewed. Potassium was slightly low at 3.2. Glucose was mildly elevated at 134. Lipase was reviewed and was normal at 16. Urinalysis was reviewed. There is no evidence of urinary tract infection or hematuria. Labs: Laboratory Results - last 24 hr 10/21/24 10/21/24 09:35 10:32 WBC 14.2 H RBC 4.67 Hgb 14.9 Hct 43.2 MCV 92.5 MCH 31.9 MCHC 34.5 RDW Std Deviation 41.6 RDW Coeff of Ethan 12.2 Plt Count 227 MPV 11.4 Immature Gran % (Auto) 0.400 Neut % (Auto) 77.1 H Lymph % (Auto) 13.7 L [place] % (Auto) 7.1 Eos % (Auto) 1.1 Baso % (Auto) 0.6 Absolute Neuts (auto) 10.9 H Absolute Lymphs (auto) 1.94 Nucleated RBC % 0 Differential Comment SCANNED Sodium 140 Potassium 3.2 L Chloride 103 Carbon Dioxide 22.6 Anion Gap 14 BUN 16 Creatinine 0.68 L Estim Creat Clear Calc 58.83 Est GFR (MDRD) Non-Af 94 BUN/Creatinine Ratio 23.3 H Glucose 134 H Calcium 9.3 Total Bilirubin 0.55 AST 22 ALT 20 Alkaline Phosphatase 75 Total Protein 7.6 Albumin 4.2 Globulin 3.4 Albumin/Globulin Ratio 1.3 Lipase 16 Urine Color Yellow Urine Clarity Clear Urine pH 6.5 Ur Specific [place] 1.010 Urine Protein 15 H Urine Glucose (UA) Normal Urine Ketones Negative Urine Occult Blood Negative Urine Nitrite Negative Urine Bilirubin Negative Urine Urobilinogen Normal Ur Leukocyte Esterase Negative Urine RBC 0 SEEN Urine WBC 0 SEEN Ur Squamous Epith Cells 0-5 SEEN Urine Bacteria 0 SEEN Urine Mucus 0 SEEN Radiography Diagnostic Testing: Clinical Impression(s) from Imaging Studies Abdomen/Pelvis CT 10/21/24 09:55 IMPRESSION: Findings suggestive of colitis of the splenic flexure and descending colon. Status post cholecystectomy. Stable grade 1 anterior listhesis of L4 on L5. Reading Location: [id number] scan of the abdomen and pelvis was obtained. There are findings suggestive of colitis of the splenic flexure and descending colon. There is no evidence of any abscess or perforation. There is no free air or free fluid. This was interpreted by the radiologist and was also independently reviewed by myself. Treatment and Re-Evaluation :: Patient was given IV fluids, morphine, and Zofran. Patient was advised of her findings. Patient was given prescription for Augmentin. Patient was also given a prescription for Diflucan to take when she completes the Augmentin course. Patient was instructed to start with a liquid diet and advance as tolerated. Patient was directed to follow-up with her primary care physician in 5 to 7 days. Patient understood and was agreeable with the plan. All other questions were answered. Discharge Plan Triage Chief Complaint: Abd Pain ED Provider: Marcos Valenzuela Dx/Rx/DC Orders Clinical Impression: Colitis, Abdominal pain Instructions: ED Understanding Colitis Prescriptions: New amoxicillin-pot clavulanate 875-125 mg tablet 875 mg PO Q12H Qty: 20 0RF fluconazole 150 mg tablet 150 mg PO DAILY Qty: 1 0RF Rx Instructions: administer on day 1 of therapy No Action fluorometholone 0.1 % drops,suspension 1 drp OPHTHALMIC DAILY PRN (Reason: eyes) cyanocobalamin (vitamin B-12) 1,000 mcg capsule 1,000 mcg PO DAILY FDgard 25-20.75 mg capsule 1 cap PO QHS ascorbic acid (vitamin C) 500 mg tablet 500 mg PO DAILY (DME) compress.stocking,knee,reg,lrg Misc See Rx Instructions .MEDSUPPLY Qty: 2 1RF Rx Instructions: wear daily for venous insufficiency 30-40 mmHg turmeric 400 mg capsule 400 mg PO DAILY (DME) compress.stocking,knee,reg,lrg Misc See Rx Instructions .MEDSUPPLY Qty: 2 1RF Rx Instructions: wear daily for venous insufficiency 20-30 mmHg vitamin k PO buspirone 15 mg tablet 15 mg PO PRN PRN (Reason: Anxiety) Qty: 90 2RF azelastine 137 mcg (0.1 %) spray,non-aerosol 2 spray intranasal DAILY PRN (Reason: nasal congestion) Qty: 30 1RF hydrocortisone 2.5 % cream 1 applic topical BID PRN (Reason: rash) Qty: 28 2RF ipratropium bromide 21 mcg (0.03 %) spray,non-aerosol 2 spray intranasal BID-TID PRN (Reason: postnasal drainage) Qty: 30 0RF Rx Instructions: administer into each nostril pantoprazole 40 mg tablet,delayed release (DR/EC) 40 mg PO DAILY Qty: 90 2RF Rx Instructions: take 1 tablet by mouth once daily tizanidine 4 mg tablet 4 mg PO QHS cyclosporine [Restasis] 1 DROP dropperette 1 drp EACH EYE BID Probiotic-Digestive Enzymes 5-250 mg capsule 1 cap PO BID cholecalciferol (vitamin D3) 25 mcg (1,000 unit) tablet 2,000 unit PO DAILY sennosides [Senna Laxative] 8.6 mg tablet 8.6 mg PO DAILY PRN (Reason: constipation) Collagen Plus Vitamin C 125-740 mg capsule 1 cap PO DAILY tramadol 50 mg tablet 50 mg PO QHS Rx Instructions: Discontinue oxycodone. Primary Care Provider: Soo Ladd Referrals: Soo Ladd MD [Primary Care Provider] - 3-5 Days Print Language: Ukrainian Disposition Disposition: Home, Self Care
[2024-10-21] MEDS: 0.9% Normal Saline (1000mL) 1,000 ML 999 ML IV (09:47)
[2024-10-21 09:49] LABS: Hematocrit 43.2 % (37-47); Hemoglobin 14.9 g/dL (12.0-15.0); Immature Granulocytes Count 0.050 X10^3/uL (0.0-0.0); Mean Corp Hgb Conc 34.5 g/dL (32-36); Mean Corpuscular Volume 92.5 fL (81-99); Mean Platelet Vol. 11.4 fl (6.2-12.0); NRBC Flagged by Analyzer 0 % (0-5); POSITIVE MORPHOLOGY YES; Platelet Count 227 K/mm3 (150-450); RBC Distribution Width CV 12.2 % (11.6-14.6); RBC Distribution Width SD 41.6 fl (35.1-43.9); Red Blood Count 4.67 M/mm3 (4.2-5.4); White Blood Count 14.2 K/mm3 (4.4-11.0)
--- NOTE | 2024-10-21 09:55 | CT_ITS ---
PROCEDURE: ABDOMEN/PELVIS W IV CONT ONLY 10/21/2024 REASON FOR EXAM: ABDOMINAL PAIN Left-sided abdominal pain and nausea. TECHNIQUE: ABDOMEN/PELVIS W IV CONT ONLY Coronal and Sagittal reconstruction series were provided. CONTRAST: Isovue 370 VOLUME: 100 mL One or more dose reduction techniques were used (e.g., Automated exposure control, adjustment of the mA and/or kV according to patient size, use of iterative reconstruction technique. RADIATION DOSE SUMMARY: CTDlvol: 14.9 mGy DLP: 811.99 mGycm COMPARISON: Prior study dated August 01, 2024. FINDINGS: Lung bases: Mild degree of dependent bibasilar atelectasis. Liver: Normal size. No mass. Gallbladder: Surgically absent. Spleen: Normal size. Pancreas: Normal size without evidence of mass surrounding inflammation or ductal dilation. Adrenals: Unremarkable Kidneys: Unremarkable Bladder: Unremarkable Reproductive Organs: Unremarkable Bowel: Circumferential wall thickening and increased markings in the surrounding peritoneal fat involving the splenic flexure and descending colon. Colitis should be ruled out. Sigmoid diverticulosis. Appendix: The appendix is not identified. There is no inflammatory process identified in the right lower quadrant to suggest appendicitis. Lymph nodes: Unremarkable. Vasculature: Mild diffuse atherosclerotic calcifications are noted. Peritoneum / Retroperitoneum: Unremarkable Bones: Minimal anterior listhesis of L4 on L5 due to facet joint osteoarthritis. Status post right total hip replacement. CT/Abdomen/Pelvis W IV Cont ONLY IMPRESSION: Findings suggestive of colitis of the splenic flexure and descending colon. Status post cholecystectomy. Stable grade 1 anterior listhesis of L4 on L5. Reading Location: [facility]
[2024-10-21 10:11] LABS: AST(SGOT) 22 U/L (<=31); Alanine Aminotransfer ALT/SGPT 20 U/L (<=34); Albumin, Serum 4.2 g/dL (3.4-4.8); Alkaline Phosphatase 75 U/L (35-104); Anion Gap 14 (5-15); BUN 16 mg/dL (4-19); BUN/Creat Ratio 23.3 RATIO (10-20); Calcium,Total 9.3 mg/dL (7.6-11.0); Carbon Dioxide 22.6 mmol/L (21.0-32.0); Chloride 103 mmol/L (98-108); Estimated Creatinine Clearance 58.83 ml/min (50-250); Globulin 3.4 g/dL (2.2-4.2); Glucose 134 mg/dL (70-99); Lipase 16 U/L (13-75); Potassium 3.2 mmol/L (3.3-5.1)
[2024-10-21 10:18] LABS: Differential Indicated SCAN CRITERIA MET
[2024-10-21 10:19] LABS: Differential Comment SCANNED
[2024-10-21 10:38] LABS: Mucous, Urine 0 SEEN /hpf (<or=2+); Red Blood Cells-Urine 0 SEEN /hpf (0-5)
[2024-10-21 10:42] LABS: Color, Urine Yellow (Yellow); Glucose, Dipstick Normal (Normal); Ketone-Dipstick Negative (Negative); Leukocyte Esterase-Dipstick Negative /ul (Negative); Nitrite-Dipstick Negative (Negative); Occult Blood-Urine Negative /ul (Negative); Protein-Dipstick 15 mg/dl (Negative); Specific Gravity, Urine 1.010 (1.002-1.030); Urine Bilirubin Dipstick Negative (Negative)
[2024-10-21 10:44] VITALS: PULSE 86; RESP 16
[2024-10-21 10:54] LABS: Squamous Epithelial Cells - UA 0-5 SEEN /hpf (5-10)
[2024-10-21 11:37] VITALS: BP 164/82; PULSE 79; RESP 14; TEMP 37; O2SAT 100
== END 2024-10-21 11:50 | disposition home or self-care (01) ==
PROVIDERS: Emergency Provider Emergency Medicine; PCP Internal Medicine; Visit Provider Emergency Medicine
DX: K52.9 Noninfective gastroenteritis and colitis, unspecified (principal); R10.9 Unspecified abdominal pain; I10 Essential (primary) hypertension; K21.9 Gastro-esophageal reflux disease without esophagitis; D72.829 Elevated white blood cell count, unspecified
CPT/HCPCS: 74177; 80053; 81001; 83690; 85025; 96361; 96374; 96375; 99283; Q9967; A4216; J2405

== ENCOUNTER → 2024-11-04 | Outpatient (CLI) | payer MEDICARE, MEDICAID, SELFPAY ==
[2024-11-04 15:00] LABS: Hematocrit 43.5 % (37-47); Hemoglobin 14.5 g/dL (12.0-15.0); Immature Granulocytes Count 0.030 X10^3/uL (0.0-0.0); Mean Corp Hgb Conc 33.3 g/dL (32-36); Mean Corpuscular Volume 94.6 fL (81-99); Mean Platelet Vol. 11.7 fl (6.2-12.0); NRBC Flagged by Analyzer 0 % (0-5); Platelet Count 227 K/mm3 (150-450); RBC Distribution Width CV 12.1 % (11.6-14.6); RBC Distribution Width SD 42.0 fl (35.1-43.9); Red Blood Count 4.60 M/mm3 (4.2-5.4); White Blood Count 9.7 K/mm3 (4.4-11.0)
[2024-11-04 16:06] LABS: Vitamin D,25 Hydroxy 48.8 ng/mL (30-100)
[2024-11-04 16:07] LABS: AST(SGOT) 22 U/L (<=31); Alanine Aminotransfer ALT/SGPT 16 U/L (<=34); Albumin, Serum 4.3 g/dL (3.4-4.8); Alkaline Phosphatase 71 U/L (35-104); Anion Gap 11 (5-15); BUN 17 mg/dL (4-19); BUN/Creat Ratio 23.9 RATIO (10-20); Calcium,Total 9.3 mg/dL (7.6-11.0); Carbon Dioxide 24.2 mmol/L (21.0-32.0); Chloride 106 mmol/L (98-108); Globulin 3.0 g/dL (2.2-4.2); Glucose 108 mg/dL (70-99); Potassium 3.8 mmol/L (3.3-5.1)
== END | disposition home or self-care (01) ==
PROVIDERS: PCP Internal Medicine; Referring Provider Internal Medicine Gastroenterology; Visit Provider Internal Medicine Gastroenterology
DX: I10 Essential (primary) hypertension (principal); M79.7 Fibromyalgia; M85.80 Other specified disorders of bone density and structure, unspecified site; R19.7 Diarrhea, unspecified
CPT/HCPCS: 36415; 80053; 82306; 84439; 84443; 85025

== ENCOUNTER → 2024-11-07 | Outpatient (CLI) | payer MEDICARE, SELFPAY ==
[2024-11-12 08:08] LABS: Calprotectin, Stool 143 ug/g (0-120)
== END | disposition home or self-care (01) ==
LOC: LABSPEC 10:55
PROVIDERS: PCP Internal Medicine; Referring Provider Internal Medicine Gastroenterology; Visit Provider Internal Medicine Gastroenterology
DX: K58.0 Irritable bowel syndrome with diarrhea (principal)
CPT/HCPCS: 83630; 83993

== ENCOUNTER → 2024-11-11 | Outpatient (CLI) | payer MEDICARE, SELFPAY | END | disposition home or self-care (01) | LOC: LABSPEC 13:42 | PROVIDERS: PCP Internal Medicine; Referring Provider Internal Medicine Gastroenterology; Visit Provider Internal Medicine Gastroenterology | DX: K58.0 Irritable bowel syndrome with diarrhea (principal) | CPT/HCPCS: 87177; 87209; 87329 ==

== ENCOUNTER → 2024-12-03 | Outpatient (CLI) | payer MEDICARE, SELFPAY ==
[2024-12-03 13:50] LABS: Hematocrit 44.4 % (37-47); Hemoglobin 15.1 g/dL (12.0-15.0); Immature Granulocytes Count 0.020 X10^3/uL (0.0-0.0); Mean Corp Hgb Conc 34.0 g/dL (32-36); Mean Corpuscular Volume 92.5 fL (81-99); Mean Platelet Vol. 11.7 fl (6.2-12.0); NRBC Flagged by Analyzer 0 % (0-5); Platelet Count 226 K/mm3 (150-450); RBC Distribution Width CV 12.1 % (11.6-14.6); RBC Distribution Width SD 41.2 fl (35.1-43.9); Red Blood Count 4.80 M/mm3 (4.2-5.4); White Blood Count 8.7 K/mm3 (4.4-11.0)
[2024-12-03 14:22] LABS: AST(SGOT) 29 U/L (<=31); Alanine Aminotransfer ALT/SGPT 25 U/L (<=34); Albumin, Serum 4.7 g/dL (3.4-4.8); Alkaline Phosphatase 80 U/L (35-104); Anion Gap 11 (5-15); BUN 16 mg/dL (4-19); BUN/Creat Ratio 20.2 RATIO (10-20); Calcium,Total 9.5 mg/dL (7.6-11.0); Carbon Dioxide 26.3 mmol/L (21.0-32.0); Chloride 102 mmol/L (98-108); Globulin 3.4 g/dL (2.2-4.2); Glucose 109 mg/dL (70-99); Potassium 3.9 mmol/L (3.3-5.1)
== END | disposition home or self-care (01) ==
LOC: LAB 13:16
PROVIDERS: PCP Internal Medicine; Referring Provider Student in an Organized Health Care Education/Training Program; Visit Provider Student in an Organized Health Care Education/Training Program
DX: K52.9 Noninfective gastroenteritis and colitis, unspecified (principal)
CPT/HCPCS: 36415; 80053; 85025

== ENCOUNTER → 2024-12-04 | Outpatient (CLI) | payer MEDICARE, SELFPAY ==
[2024-12-07 23:07] LABS: Calprotectin, Stool 65 ug/g (0-120)
== END | disposition home or self-care (01) ==
LOC: LABSPEC 12:47
PROVIDERS: PCP Internal Medicine; Referring Provider Student in an Organized Health Care Education/Training Program; Visit Provider Student in an Organized Health Care Education/Training Program
DX: K52.9 Noninfective gastroenteritis and colitis, unspecified (principal)
CPT/HCPCS: 83993

== ENCOUNTER → 2024-12-17 | Outpatient (CLI) | payer MEDICARE, MEDICAID, SELFPAY ==
--- NOTE | 2024-12-17 16:51 | CT_ITS ---
PROCEDURE: ABDOMEN/PELVIS WITH CONTRAST 12/17/2024 REASON FOR EXAM: ABD PAIN TECHNIQUE: Procedure Code: [id number] Modality: CT Procedure: ABDOMEN/PELVIS WITH CONTRAST Coronal and Sagittal reconstruction series were provided. CONTRAST: Isovue 370 VOLUME: 75 mL One or more dose reduction techniques were used (e.g., Automated exposure control, adjustment of the mA and/or kV according to patient size, use of iterative reconstruction technique. RADIATION DOSE SUMMARY: CTDlvol: 15.20 mGy DLP: 726.22 mGycm COMPARISON: CT abdomen and pelvis October 21, 2024. FINDINGS: Lung bases: Clear. Liver: Unremarkable. Gallbladder: Cholecystectomy. No biliary dilation. Spleen: Unremarkable Pancreas: Unremarkable. Adrenals: Unremarkable. Kidneys: Bilateral subcentimeter cysts which are too small to characterize CT scan. No hydronephrosis. No nephrolithiasis. Bladder: Unremarkable. Reproductive Organs: Unremarkable. Bowel: No thickening. No bowel obstruction. Appendix: Normal. Lymph nodes: No lymphadenopathy. Vasculature: No aneurysm. Peritoneum / Retroperitoneum: No free air or free fluid. Bones: No acute bone abnormalities. CT/Abdomen/Pelvis WITH Contrast IMPRESSION: No acute abdominopelvic abnormalities. Reading Location: [facility]
--- OUTSIDE RECORDS SUMMARY | 2024-12-17 17:09 | XMS RPT_ITS | CCD ---
Author Organization [facility] Care Team Providers Care Timber Estimator Name Role Phone TOMASA, ANALI A. Unavailable Unavailable TOMASA, ANALI A. Unavailable Unavailable TOMASA, ANALI A. Unavailable Unavailable Rahat, Canales L Unavailable Unavailable Rahat, Canales L Unavailable Unavailable Rahat, Canales L Unavailable Unavailable Dunn, Lashay M. Unavailable Unavailable Rahat, Canales L Unavailable Unavailable Dunn, Lashay M. Unavailable Unavailable Rahat, Canales L Unavailable Unavailable Rahat, Canalse L Unavailable Unavailable Tomasa, Anali Kena Primary Care Provider [phone] Dr. Soo Ladd Primary Care Provider [phone]) Dr. Soo Ladd Referring Provider [phone] JORDYN Orozco Attending Provider Dr. Soo Ladd Attending Provider [phone] Anali Randolph Primary Care Provider [phone] Dr. Soo Ladd Primary Care Provider 1(33 0) Dr. Soo Ladd Referring Provider [phone] JORDYN Orozco Attending Provider FriendDr. Colvin Attending Provider [phone] Dr. Vinicius Ross Other Provider [phone] Dr. Soo Ladd Primary Care Provider [phone] Dr. Soo Ladd Referring Provider [phone] Tiffanie BEHAVIOR MANAGEMENT SPECIALIST, BEHAVIOR MANAGEMENT SPECIALIST-Stephan Núñez Attending Provider Dr. Jean-Paul Alaniz Attending Provider [phone] Dr. Uday Olivares Attending Provider Anali Randolph Primary Care Provider [phone] Dr. Soo Ladd Primary Care Provider [phone]) Wilberto, Dr. Vann Referring Provider [phone] JORDYN Purcell Attending Provider [phone] Andrew BEHAVIOR MANAGEMENT SPECIALIST, BEHAVIOR MANAGEMENT SPECIALIST-C Meagan Harvey Attending Provider [phone] JORDYN Stone Attending Provider Wilberto, Dr. Vann Attending Provider [phone] Wilberto, Dr. Vann Primary Care Provider 1([phone]) Wilberto, Dr. Vann Referring Provider [phone] Wilberto, Dr. Vann Primary Care Provider 1(33 0) Wilberto, Dr. Vann Referring Provider [phone] Wilberto, Dr. Vann Primary Care Provider 1(33 0) Wilberto, Dr. Vann Attending Provider [phone] Wilberto, Dr. Vann Referring Provider [phone] Wilberto, Dr. Vann Primary Care Provider 1(33 0) Dr. Soo Ladd Attending Provider [phone] Dr. Soo Ladd Referring Provider [phone] Anali Randolph Primary Care Provider [phone] ) Soo Ladd MD Primary Care Provider 1(3 30) Soo Ladd MD Primary Care Provider 1(3 [phone]) Dr. Soo Ladd MD Primary Care Provider Dr. Soo Ladd MD Attending Provider 1(33 0) Dr. Soo Ladd MD Referring Provider [phone] Michael Orozco Attending Provider Jones BEHAVIOR MANAGEMENT SPECIALIST-C, Caron Attending Provider [phone] Robert BEHAVIOR MANAGEMENT SPECIALIST-C, Caron Referring Provider [phone] Denton FARRIS, Dr. Bella Attending Provider Wilberto FARRIS, Dr. Vann Primary Care Provider Wilberto FARRIS, Dr. Vann Referring Provider [phone] Denton FARRIS, Dr. Bella Attending Provider Wilberto FARRIS, Dr. Vann Attending Provider [phone] Dr. Marcos Valenzuela DO Emergency Provider Bianca MISHRA, Dr. Rodríguez Attending Provider Collin Purcell Attending Provider Wilberto FARRIS, Dr. Vann Primary Care Physician Robert BEHAVIOR MANAGEMENT SPECIALIST-C, Caron Attending Physician Wilberto FARRIS, Dr. Vann Referring Provider [phone] Denton FARRIS, Dr. Bella Attending Physician Wilberto FARRIS, Dr. Vann Attending Physician [phone] Dr. Marcos Valenzuela DO Attending Physician Dr. Marcos Valenzuela DO Emergency Department Physi darron Collin Purcell Attending Physician Dr. Vinicius Ross DO Attending Physician [phone] Dr. Vinicius Ross DO Referring Provider FIDENCIO GARCES Attending Unavailable OLEGHE, EFEWONGBE B Primary Care Unavailable JACKY, ANALI Referring Unavailable OLEGHE, EFEWONGBE B Primary Care Unavailable JACKY, ANALI Attending Unavailable OLEGHE, EFEWONGBE B Primary Care Unavailable JACKY, ANALI Attending Unavailable OLEGHE, EFEWONGBE B Primary Care Unavailable OLEGHE, EFEWONGBE B Primary Care Unavailable SAMANTHA JAMA Attending Unavailable OLEGHE, EFEWONGBE B Primary Care Unavailable Michael Orozco Attending Unavailable Oleghe, Efewongbe Referring Unavailable Oleghe, Efewongbe Primary Care Unavailable Oleghe, Efewongbe Attending Unavailable Oleghe, Efewongbe Referring Unavailable Oleghe, Efewongbe Primary Care Unavailable Oleghe, Efewongbe Primary Care Unavailable Oleghe, Efewongbe Referring Unavailable Collin Solano Attending Unavailable Oleghe, Efewongbe Primary Care Unavailable Robert, Caron Referring Unavailable JonesEvelynCaron Attending Unavailable Oleghe, Efewongbe Primary Care Unavailable Keeley Coppola Referring Unavailable Keeley Coppola Attending Unavailable Oleghe, Efewongbe Attending Unavailable Oleghe, Efewongbe Primary Care Unavailable Oleghe, Efewongbe Referring Unavailable Oleghe, Efewongbe Primary Care Unavailable Keeley Coppola Referring Unavailable Keeley Coppola Attending Unavailable Oleghe, Efewongbe Primary Care Unavailable Keeley Coppola Referring Unavailable Keeley Coppola Attending Unavailable Friend, Vinicius Attending Unavailable Oleghe, Efewongbe Primary Care Unavailable Friend, Vinicius Referring Unavailable China Ennis Referring Unavailable LoliChina dillard Attending Unavailable Oleghe, Efewongbe Primary Care Unavailable Oleghe, Efewongbe Attending Unavailable Oleghe, Efewongbe Primary Care Unavailable Oleghe, Efewongbe Referring Unavailable Oleghe, Efewongbe Referring Unavailable Evelyn Jonesher Attending Unavailable Oleghe, Efewongbe Primary Care Unavailable Oleghe, Efewongbe Referring Unavailable Oleghe, Efewongbe Attending Unavailable Oleghe, Efewongbe Primary Care Unavailable Oleghe, Efewongbe Attending Unavailable Oleghe, Efewongbe Primary Care Unavailable Oleghe, Efewongbe Referring Unavailable Friend, Vinicius Attending Unavailable Oleghe, Efewongbe Primary Care Unavailable Friend, Vinicius Referring Unavailable Oleghe, Efewongbe Primary Care Unavailable Marcos Valenzuela Attending Unavailable Friend, Vinicius Attending Unavailable Oleghe, Efewongbe Primary Care Unavailable Friend, Vinicius Referring Unavailable Oleghe, Efewongbe Attending Unavailable Soo Ladd Primary Care Unavailable Wilberto Efewongbe Referring Unavailable Wilberto, Efewongbe Primary Care Unavailable Wilberto Efkyrieongbe Referring Unavailable Caron Jones Attending Unavailable Allergies Allergy Classification Reported Allergen(s) Allergy Type Date of Onset Reaction(s) Facility Adrenergic Antagonists (1 source) Phentolamine Drug Allergy 3 [facility] DOPamine Antagonists (1 source) Metoclopramide Drug Allergy 4 Swelling, Other: See Comments [facility] Doxycycline (1 source) Doxycycline Drug Allergy 8 GI Upset [facility] Work Phone: Penicillins (antibiotic) (1 source) Amoxicillin Drug Allergy 1 Other: See Comments [facility] Work Phone: (20 sources) Amoxicillin; Translations: [AMOXICILLIN] Drug Allergy 1 Other: See Comments [facility] Work Phone: (20 sources) Doxycycline; Translations: [DOXYCYCLINE] Drug Allergy 8 GI Upset [facility] Work Phone: (20 sources) Metoclopramide; Translations: [METOCLOPRAMIDE HCL] Drug Allergy 4 Swelling, Other: See Comments [facility] (3 sources) REGINAE Allergy to substance 2 [facility] (20 sources) Phentolamine; Translations: [PHENTOLAMINE] Drug Allergy 3 [facility] (1 source) Amoxicillin Drug Allergy 5 [facility] (1 source) Phentolamine Drug Allergy 5 [facility] Medications Current Medications Medication Drug Class(es) Dates Sig (Normalized) Sig (Original) acetaminophen 500 mg oral tablet (1 source) Start: 12-09-2020 take 1000 mg by mouth every six hours Acetaminophen Active 1000 MG PO EVERY 6 HOURS 90 December 09, 2020 12:00am ascorbic acid 500 mg oral tablet (16 sources) Vitamin C Start: 07-29-2022 take 1 tablet by mouth once daily ascorbic acid 125 mg / collagen, hydrolyzed 740 mg oral capsule (13 sources) Vitamin C Start: 12-12-2022 aspirin 81 mg delayed release oral tablet (1 source) Platelet Aggregation Inhibitor, Nonsteroidal Anti-inflammatory Drug Start: 12-21-2020 take 81 mg by mouth twice daily Aspirin Active 81 MG PO TWICE A DAY December 21, 2020 12:00am azelastine hydrochloride 0.137 mg/actuat metered dose nasal spray (20 sources) Histamine-1 Receptor Antagonist Start: 06-08-2023 End: 01-15-2024 Start: 03-06-2023 End: 06-08-2023 Azelastine 137 mcg (0.1 %) aerosol,spray Discontinued INTRANASAL March 06, 2023 1:00am June 08, 2023 4:17pm Start: 03-10-2020 take 2 spray(s) nasa l route twice daily azelastine (ASTELIN) 0.1% nasal spray instill 2 sprays into each nostril twice a day 03/10/2020 Active Comment on above: instill 2 sprays int o each nostril twice a day azithromycin 250 mg oral tablet (20 sources) Macrolide Antimicrobial Start: 12-19-2023 azithromycin (ZITHROMAX) 250 mg tablet Take 250 mg by mouth as directed. For dental. 12/19/2023 Active Start: 07-16-2021 End: 08-13-2021 take 2-5 tablets by mouth once daily Azithromycin 250 mg tablet Discontinued 0 PO .COMPLEX 6 0 July 16, 2021 12:00am August 13, 2021 1:24pm take 500 mg today (day 1), then 250 mg for 4 days (days 2-5) PO Start: 11-17-2020 End: 11-24-2020 take 1 tablet by mouth once daily Azithromycin 500 mg tablet Discontinued 500 mg PO DAILY 7 7 0 November 17, 2020 12:00am November 23, 2020 12:00am November 24, 2020 12:01am Start: 05-14-2020 End: 07-01-2020 Azithromycin 250 mg tablet Discontinued 250 mg PO daily 6 0 May 14, 2020 12:00am July 01, 2020 1:41pm 2 tablets today, then 1 tablet daily on days 2 through 5 bisacodyl 5 mg delayed release oral tablet (4 sources) Stimulant Laxative Start: 11-01-2024 take 1 tablet by doris th once as needed for constipation [place] Oil-Levomenthol (Fdgard) 25-20.75 mg capsule (17 sources) Start: 05-02-2022 Start: 05-02-2022 [place] Oil-Le vomenthol (Fdgard) 25-20.75 mg capsule Active 1 NMA PO AT BEDTIME May 02, 2022 1:00am Start: 05-02-2022 take 1 capsule by mo uth at bedtime [place] Oil-Levomenthol (Fdgard) 25-20.75 mg capsule Active 1 CAP PO AT BEDTIME May 02, 2022 12:00am Start: 05-02-2022 take 1 capsule by mo uth at bedtime [place] Oil-Levomenthol (Fdgard) 25-20.75 mg capsule Active 1 CAP PO AT BEDTIME May 02, 2022 1:00am Start: 05-02-2022 [place] Oil-Le vomenthol (Fdgard) 25-20.75 mg capsule Active 1 CAP PO May 02, 2022 1:00am cholecalciferol 0.025 mg ora l tablet (20 sources) Vitamin D Start: 01-15-2024 take 1 tablet by doris th once daily Start: 11-26-2015 End: 01-15-2024 take 1 tablet by mouth once daily Cholecalciferol (Vitamin D3) 25 mcg (1,000 unit) tablet Discontinued 1000 U PO DAILY 90 June 19, 2020 10:20am July 30, 2020 11:06am clobetasol propionate 0.5 mg/ml topical cream (3 sources) Corticosteroid Start: 03-21-2024 clobetasol (TE MOVATE) 0.05 % cream Indications: Vaginal irritation Apply to affected area 2x/day for 2 weeks. 60 g 03/21/2024 Active Compress.Stocking,Knee,R eg,Lrg (8 sources) Start: 11-28-2022 Compress.Stock ing,Knee,Reg ,Lrg Active 0 .MEDSUPPLY November 27, 2022 11:00pm wear daily for venous insufficiency 20-30 mmHg Start: 11-28-2022 Compress.Stock ing,Knee,Reg,Lrg Active 0 .MEDSUPPLY November 28, 2022 12:00am wear daily for venous insufficiency 20-30 mmHg Start: 09-07-2022 Compress.Stock ing,Knee,Reg,Lrg Active 0 .MEDSUPPLY 2 September 06, 2022 11:00pm wear daily for venous insufficiency 30-40 mmHg Start: 09-07-2022 Compress.Stock ing,Knee,Reg,Lrg Active 0 .MEDSUPPLY 2 September 07, 2022 12:00am wear daily for venous insufficiency 30-40 mmHg Compress.Stocking,Knee,Reg,L rg misc (20 sources) Start: 11-28-2022 Compress.Stocking,Knee,Reg,L rg misc Active 0 .MEDSUPPLY 2 November 28, 2022 12:00am Venous insufficiency (chronic) (peripheral) wear daily for venous insufficiency 20-30 mmHg Start: 11-28-2022 Compress.Stock ing,Knee,Reg,Lrg misc Active 0 .MEDSUPPLY 2 November 28, 2022 12:00am wear daily for venous insufficiency 20-30 mmHg Start: 09-07-2022 Compress.Stock ing,Knee,Reg,Lrg misc Active 0 .MEDSUPPLY 2 September 07, 2022 12:00am Venous insufficiency (chronic) (peripheral) wear daily for venous insufficiency 30-40 mmHg Start: 09-07-2022 Compress.Stock ing,Knee,Reg,Lrg misc Active 0 .MEDSUPPLY 2 September 07, 2022 12:00am wear daily for venous insufficiency 30-40 mmHg Cyclosporine (20 sources) Calcineurin Inhibitor Immunosuppressant Start: 11-08-2019 Start: 11-08-2019 Cyclosporine ( Restasis) 1 DROP dropperette Active 1 DRP EACH EYE TWICE A DAY November 08, 2019 12:00am Start: 09-18-2019 take 0.05 drop(s) in to the eye(s) twice daily RESTASIS MULTIDOSE 0.05 % drop put 1 drop in into both eyes twice a day 09/18/2019 Active Start: 09-18-2019 RESTASIS MULTI DOSE 0.05 % drop put 1 drop in into both eyes twice a day 0 09/18/2019 Active Comment on above: put 1 drop in into b oth eyes twice a day Cyclosporine (Restasis) 1 DROP dropperette (15 sources) Start: 11-08-2019 Cyclosporine (Restasis) 1 DROP dropperette Active 1 NMA EACH EYE TWICE A DAY November 08, 2019 12:00am dry eyes Start: 11-08-2019 Cyclosporine ( Restasis) 1 DROP dropperette Active 1 NMA EACH EYE TWICE A DAY November 08, 2019 12:00am Start: 11-08-2019 Cyclosporine ( Restasis) 1 DROP dropperette Active 1 DRP EACH EYE TWICE A DAY November 07, 2019 11:00pm Start: 11-08-2019 Cyclosporine ( Restasis) 1 DROP dropperette Active 1 DRP EACH EYE TWICE A DAY November 08, 2019 12:00am docusate sodium 50 mg / sennosides, intermediate 8.6 mg oral tablet (20 sources) Start: 11-02-2019 SENOKOT-S 8.6- 50 mg per tablet Take 2 tablets by mouth daily at bedtime. Daily, Every other day to every other day as needed 11/02/2019 Active Comment on above: Take 2 tablets by mo uth daily at bedtime. Take 2 tablets by mo uth daily at bedtime. Daily, Every other day to every other day as needed ergocalciferol 0.05 mg oral tablet (20 sources) Provitamin D2 Compound Start: 10-29-2013 take 1 tablet by mouth every week ergocalciferol, vitamin D2, 2,000 unit tab Indications: Abdominal pain, unspecified site Take 1 tablet by mouth once each week. 0 10/29/2013 Active Comment on above: Take 1 tablet by doris once each week. estradiol 0.1 mg/ml vaginal cream (20 sources) Estrogen Start: 05-25-2020 End: 03-21-2024 estradiol (ESTRACE) 0.01 % (0.1 mg/gram) vaginal cream Use 1 g vaginally at bedtime for 2 weeks then 3 times/weeks for maintenance. 42.5 g 4 03/21/2024 Active Comment on above: Use 0.5g vaginally a t bedtime for 2 weeks then 1-3 time/weeks for maintenance. fluconazole 150 mg oral tablet (20 sources) Azole Antifungal Start: 10-21-2024 take 1 tablet by mouth once daily Start: 03-22-2024 End: 03-22-2024 take 1 tablet by mouth once fluconazole (DIFLUCAN) 150 mg tablet Take 1 tablet by mouth one time only for 1 dose. 1 tablet 03/22/2024 03/22/2024 Active Start: 06-28-2019 End: 08-28-2019 Fluconazole 150 mg tablet Di scontinued 150 mg PO Every 3 Days 2 0 0 June 28, 2019 12:00am August 28, 2019 1:38pm june repeat second dose 72 hrs after first dose if symptoms persist fluorometholone 1 mg/ml opht halmic suspension (20 sources) Corticosteroid Start: 09-08-2023 Start: 10-15-2018 End: 09-08-2023 Fluorometholone 0.1 % drops, suspension Discontinued 1 NMA OPHTHALMIC DAILY October 15, 2018 12:00am September 08, 2023 2:09pm eyes Start: 10-15-2018 fluorometholon e (FML LIQUID FILM) 0.1 % ophthalmic suspension Use 1 Drop in both eyes twice daily. 09/17/2019 Active Start: 10-15-2018 Fluorometholon e Active 1 DRP OPHTHALMIC DAILY October 14, 2018 11:00pm Comment on above: Use 1 Drop in both e yes twice daily. hydrocortisone 25 mg/ml topi kamilla cream (6 sources) Corticosteroid Start: 10-03-2024 ipratropium bromide 0.021 mg/actuat metered dose nasal spray (20 sources) Anticholinergic Start: 06-07-2024 Start: 06-08-2023 End: 10-03-2024 Ipratropium [place] 21 mcg ( 0.03 %) spray,non-aerosol Discontinued 2 NMA INTRANASAL TWICE A DAY as needed for allergy symptoms January 15, 2024 2:23pm October 03, 2024 2:06pm administer into each nostril Start: 03-05-2020 End: 07-01-2020 Ipratropium [place] 42 mcg ( 0.06 %) spray,non-aerosol Discontinued 2 NMA INTRANASAL THREE TIMES A DAY 13 03March 05, 2020 1:00am July 01, 2020 1:42pm administer into each nostril Start: 03-05-2020 End: 07-01-2020 take 1 spray(s) nasal route three times daily Ipratropium [place] Discontinued 2 SPRAY INTRANASAL THREE TIMES A DAY March 05, 2020 12:00am July 01, 2020 12:42pm administer into each nostril Ipratropium [place] 21 mcg ( 0.03 %) spray,non-aerosol (14 sources) Start: 06-07-2024 Ipratropium Br om[place] 21 mcg (0.03 %) spray,non-aerosol Active 2 NMA INTRANASAL 2 to 3 times per day as needed for postnasal drainage June 07, 2024 12:00am administer into each nostril Start: 06-07-2024 Ipratropium Br omide 21 mcg (0.03 %) spray,non-aerosol Active 2 NMA INTRANASAL 2 to 3 times per day as needed for postnasal drainage June 07, 2024 12:00am administer into each nostril Start: 06-08-2023 End: 01-15-2024 Ipratropium [place] 21 mcg ( 0.03 %) spray,non-aerosol Discontinued 2 NMA INTRANASAL TWICE A DAY as needed for allergy symptoms June 08, 2023 12:00am January 15, 2024 2:23pm administer into each nostril Start: 06-08-2023 End: 01-15-2024 Ipratropium [place] 21 mcg ( 0.03 %) spray,non-aerosol Discontinued 2 NMA INTRANASAL TWICE A DAY as needed for allergy symptoms June 08, 2023 12:00am January 15, 2024 2:23pm administer into each nostril L. Acidophilus-Dig Enz Cmb 5 (Probiotic-Digestive Enzymes) 5-250 mg capsule (15 sources) Start: 09-07-2022 take 5 capsules by m outh twice daily Start: 09-07-2022 take 5 capsules by m outh twice daily L. Acidophilus-Dig Enz Cmb 5 (Probiotic-Digestive Enzymes) 5-250 mg capsule Active 1 NMA PO TWICE A DAY September 07, 2022 10:56am colon Start: 09-07-2022 take 5 capsules by m outh twice daily L. Acidophilus-Dig Enz Cmb 5 (Probiotic-Digestive Enzymes) 5-250 mg capsule Active 1 NMA PO TWICE A DAY September 07, 2022 10:56am Start: 09-07-2022 L. Acidophilus -Dig Enz Cmb 5 (Probiotic-Digestive Enzymes) 5-250 mg capsule Active 1 CAP PO TWICE A DAY September 07, 2022 9:56am Start: 09-07-2022 L. Acidophilus -Dig Enz Cmb 5 (Probiotic-Digestive Enzymes) 5-250 mg capsule Active 1 CAP PO TWICE A DAY September 07, 2022 10:56am L. acidophilus-L. rhamnosus 15 billion cell cap (20 sources) Start: 11-21-2019 take 1 capsule by mouth once daily L. acidophilus-L. rhamnosus 15 billion cell cap Indications: BV (bacterial vaginosis) Take 1 capsule by mouth once daily. FLORAJEN WOMEN. If on antibiotic, take at least 1-2 hours before or after antibiotic. KEEP REFRIGERATED 30 capsule 11/21/2019 Active Comment on above: Take 1 capsule by [facility] once daily. FLORAJEN WOMEN. If on antibiotic, take at least 1-2 hours before or after antibiotic. KEEP REFRIGERATED ofloxacin 3 mg/ml otic solution (4 sources) Quinolone Antimicrobial Start: 12-23-2023 ofloxacin (FLOXIN) 0.3 % otic solution Use 5 Drops in both ears once daily. 10 mL 12/23/2023 Active OTC PRODUCT (20 sources) OTC PRODUCT Take by mouth once daily. FD vanessa For acid reflux Active OTC PRODUCT Take by mouth once daily. FD vanessa For acid reflux 0 Active OTC PRODUCT FD g reinier For acid reflux 0 Active Comment on above: FD vanessa For acid ref lux Take by mouth once d aily. FD vanessa For acid reflux Sennosides (Senna Laxative) 8.6 mg tablet (10 sources) Start: take 1 tablet by mouth once daily as needed for constipation Sennosides (Senna Laxative) 8.6 mg tablet Active 8.6 mg PO DAILY as needed for constipation December 12, 2022 12:00am Start: 12-12-2022 take 1 tablet by doris once daily Sennosides (Senna Laxative) 8.6 mg tablet Active 8.6 mg PO DAILY December 12, 2022 12:00am Start: 12-12-2022 take 1 tablet by doris once daily Sennosides (Senna Laxative) 8.6 mg tablet Active 8.6 MG PO DAILY December 11, 2022 11:00pm Start: 12-12-2022 take 1 tablet by doris once daily Sennosides (Senna Laxative) 8.6 mg tablet Active 8.6 MG PO DAILY December 12, 2022 12:00am sennosides, intermediate 8.6 mg oral tablet (4 sources) Start: 12-12-2022 take 1 tablet by doris th once daily as needed for constipation Start: 07-01-2020 take 8.6 mg by mouth at bedtim e Sennosides Active 8.6 MG PO AT BEDTIME July 01, 2020 12:00am simethicone 125 mg oral caps ule (20 sources) Start: 11-01-2024 take 1 capsule by mo uth once as needed Start: 11-26-2015 End: 10-10-2018 Simethicone 125 MG tablet,ch ewable Discontinued 125 mg PO NEEDED as needed for GAS PAINS November 26, 2015 12:00am October 10, 2018 7:49am tiZANidine 4 mg oral tablet (20 sources) Central alpha-2 Adrenergic Agonist Start: 10-15-2018 take 1 tablet by mouth at bedtime Start: 11-26-2015 End: 10-15-2018 take 1 tablet by mouth every six hours as needed for pain Tizanidine 4 MG tablet Discontinued 4 mg PO EVERY 6 HOURS NEEDED as needed for Pain November 26, 2015 12:00am October 15, 2018 10:43am Comment on above: Take 1 tablet by doris th once daily. Turmeric extract (14 sources) Start: 10-03-2022 take 1 capsule by mo uth once daily Start: 10-03-2022 take 1 capsule by mo uth once daily Turmeric 400 mg capsule Active 400 mg PO DAILY October 03, 2022 12:00am Start: 10-03-2022 take 400 mg by mouth once teri y Turmeric Active 400 MG PO DAILY October 02, 2022 11:00pm Start: 10-03-2022 take 400 mg by mouth once teri y Turmeric Active 400 MG PO DAILY October 03, 2022 12:00am Start: 10-03-2022 Turmeric Activ e MG PO October 03, 2022 12:00am vitamin b12 1 mg oral capsul e (20 sources) Vitamin B12 Start: 11-01-2024 Start: 05-02-2022 End: 11-01-2024 take 1 capsule by mouth once daily Cyanocobalamin (Vitamin B-12) 1,000 mcg capsule Discontinued 1000 ug PO DAILY May 02, 2022 1:00am November 01, 2024 3:32pm Start: 05-02-2022 take 1000 ug by mout h every month Cyanocobalamin (Vitamin B-12) Active 1000 MCG PO EVERY MONTH May 02, 2022 1:00am Start: 10-29-2013 take 1 tablet by doris th once daily cyanocobalamin 1,000 mcg tab Indications: Abdominal pain, unspecified site Take 1 tablet by mouth once daily. 0 10/29/2013 Active Comment on above: Take 1 tablet by doris th once daily. Vitamin K (10 sources) Start: 01-15-2024 Start: 01-15-2024 vitamin k Acti ve PO January 15, 2024 1:00am Completed/Discontinued Medications Medication Drug Class(es) Dates Sig (Normalized) Sig (Original) acetaminophen 325 mg / oxyCODONE hydrochloride 5 mg oral tablet (20 sources) Opioid Agonist Start: 10-15-2018 End: 12-09-2020 Oxycodone-Acetamino phen 5-325 mg tablet Discontinued 1 {tbl} PO TWICE A DAY as needed for Pain October 15, 2018 10:40am December 09, 2020 12:32pm Start: 10-15-2018 End: 12-09-2020 take 1 tablet by mouth twice daily Oxycodone-Acetaminophen Discontinued 1 TABLET PO TWICE A DAY October 15, 2018 9:40am December 09, 2020 11:32am Start: 11-26-2015 End: 10-15-2018 Oxycodone-Acetaminophen 1 TA BLET tablet Discontinued 1 {tbl} PO AT BEDTIME November 26, 2015 12:00am October 15, 2018 10:43am Start: 11-26-2015 End: 10-15-2018 take 1 tablet by mouth at bedtime Oxycodone-Acetaminophen Discontinued 1 TABLET PO AT BEDTIME November 25, 2015 11:00pm October 15, 2018 9:43am amitriptyline hydrochloride 50 mg oral tablet (20 sources) Tricyclic Antidepressant Start: 11-26-2015 End: 10-10-2018 Amitriptyline 50 MG tablet Discontinued 50 mg PO NEEDED as needed for Sleep November 26, 2015 12:00am October 10, 2018 7:49am End: 10-17-2022 AMITRIPTYLINE HCL (AMITRIPTY LINE ORAL) Indications: H/O urinary retention , Polypharmacy Take by mouth. 0 10/17/2022 Discontinued AMITRIPTYLINE HC L (AMITRIPTYLINE ORAL) Indications: H/O urinary retention , Polypharmacy Take by mouth. 0 Active Comment on above: Take by mouth. amLODIPine 5 mg oral tablet (20 sources) Dihydropyridine Calcium Channel Lori Start: End: take 1 tablet by mouth once daily Amlodipine 5 mg tablet Discontinued 5 mg PO DAILY 30 3 July 29, 2022 12:00am October 03, 2022 2:43pm Comment on above: Take 5 mg by mouth o nce daily. amoxicillin 500 mg oral capsule (19 sources) Penicillin-class Antibacterial Start: End: take 4 capsules by mouth every hour as needed Amoxicillin 500 mg capsule Discontinued 500 mg PO ONCE as needed for Prophylactic 4 0 May 06, 2021 1:00am August 13, 2021 1:24pm Artificial knee joint present Presence of unspecified artificial knee joint Take 4 caps within 1 hour of dental procedure. amoxicillin 875 mg / clavulanate 125 mg oral tablet (5 sources) Penicillin-class Antibacterial Start: End: take 1 tablet by mouth every twelve hours Amoxicillin-Pot Clavulanate 875-125 mg tablet Discontinued 875 mg PO Q12H 20 October 21, 2024 12:00am November 01, 2024 3:30pm apixaban 2.5 mg oral tablet (19 sources) Factor Xa Inhibitor Start: End: take 1 tablet by mouth twice daily Apixaban (Eliquis) 2.5 mg Tablet Discontinued 2.5 mg PO TWICE A DAY 42 0 December 09, 2020 12:00am December 21, 2020 11:12am 24 hr buPROPion hydrochloride 150 mg extended release oral tablet (20 sources) Aminoketone Start: End: take 1 tablet by mouth once daily in the morning Bupropion Hcl 150 mg tablet extended release 24 hr Discontinued 150 mg PO EVERY MORNING 60 2 July 29, 2022 12:00am October 03, 2022 2:19pm Comment on above: Take 150 mg by mouth every morning. busPIRone hydrochloride 15 mg oral tablet (20 sources) Start: 020 End: 024 Buspirone 15 mg tablet Discontinued 15 mg PO NEEDED as needed for Anxiety 90 2 October 18, 2022 12:05pm January 15, 2024 2:23pm Start: 10-10-2018 End: 03-20-2019 Buspirone 15 mg tablet Disco ntinued 15 mg PO AT BEDTIME as needed October 10, 2018 7:44am March 20, 2019 12:42pm Once to tid prn Start: 11-26-2015 End: 10-10-2018 take 1 tablet by mouth at bedtime Buspirone 15 MG tablet Discontinued 15 mg PO AT BEDTIME November 26, 2015 12:00am October 10, 2018 7:51am Start: 10-29-2013 End: 10-17-2022 take 1 tablet by mouth three times daily busPIRone 15 mg tablet Indications: Abdominal pain, unspecified site Take 1 tablet by mouth three times daily. 0 10/29/2013 10/17/2022 Discontinued Comment on above: Take 1 tablet by doris th three times daily. Calcium (8 sources) Phosphate Binder, Calcium End: 10-17-2022 CALCIUM ORAL Take by mouth. 0 10/17/2022 Discontinued CALCIUM ORAL Alberto e by mouth. 0 Active Comment on above: Take by mouth. calcium citrate 950 mg oral tablet (18 sources) Start: 12-29-19 End: 01-15-20 take 1 tablet by mouth once daily Calcium Citrate 200 mg (950 mg) Tablet Discontinued 600 mg PO DAILY December 28, 2021 12:00am January 15, 2024 1:58pm calcium polycarbophil 625 mg oral tablet (19 sources) Start: 11-08-19 End: 07-02-19 take 1 tablet by mouth once daily Calcium Polycarbophil 625 MG tablet Discontinued 625 mg PO DAILY November 08, 2019 12:00am July 01, 2020 1:42pm cephalexin 500 mg oral capsule (20 sources) Cephalosporin Antibacterial Start: 02-13-20 End: 06-06-19 take 4 capsules by mouth once Cephalexin 500 mg capsule Discontinued 2000 mg PO ONCE 4 3 February 13, 2024 1:00am Josie 9th, 2025 9:25am Take within 1 hour prior to dental procedure Start: 12-18-2023 cephALEXin (KE FLEX) 500 mg capsule Take 500 mg by mouth as directed. 1 hour before dental appointment. 12/18/2023 Active Start: 12-18-2023 End: 01-15-2024 take 4 tablets by mouth every hour Cephalexin 500 mg capsule Discontinued 2000 mg PO ONCE 4 2 December 18, 2023 12:00am January 15, 2024 1:54pm Take 4 tabs within 1 hour prior to dental procedure Start: 06-07-2023 End: 09-08-2023 take 4 capsules by mouth every hour Cephalexin 500 mg capsule Discontinued 2000 mg PO ONCE 4 July 10, 2023 1:25pm September 08, 2023 2:07pm take 4 caps within 1 hr prior to dental procedure. Start: 12-16-2022 End: 03-06-2023 take 4 capsules by mouth once daily Cephalexin 500 mg capsule Discontinued 2000 mg PO TWICE A DAY 4 December 16, 2022 12:00am March 06, 2023 3:28pm Take within 1 hour prior to dental procedure Start: 12-16-2022 End: 03-06-2023 take 2000 mg by mouth once daily Cephalexin Discontinu ed 2000 MG PO TWICE A DAY 4 December 15, 2022 11:00pm March 06, 2023 2:28pm Take within 1 hour prior to dental procedure Start: 2022 End: 07-29-2022 take 4 tablets by mouth every hour Cephalexin 500 mg capsule Discontinued 2000 mg PO TWICE A DAY 4 2022 12:00am July 29, 2022 2:51pm Take 4 tabs within 1 hour prior to dental procedure Start: 2022 End: 07-29-2022 take 4 tablets by mouth every hour Cephalexin Discontinued 2000 MG PO TWICE A DAY 4 June 28, 2022 11:00pm July 29, 2022 1:51pm Take 4 tabs within 1 hour prior to dental procedure Start: 05-11-2022 End: 07-29-2022 take 1 capsule by mouth once Cephalexin 500 mg capsule Discontinued 500 mg PO ONCE 4 0 May 11, 2022 12:00am July 29, 2022 2:51pm Take within 1 hour prior to dental procedure Start: 03-02-2022 End: 05-02-2022 take 4 tablets by mouth every hour Cephalexin 500 mg capsule Discontinued 2000 mg PO ONCE 4 March 02, 2022 1:00am May 02, 2022 2:50pm Take 4 tabs within 1 hour prior to dental procedure Start: 03-02-2022 End: 05-02-2022 take 4 tablets by mouth every hour Cephalexin Discontinued 2000 MG PO ONCE March 02, 2022 12:00am May 02, 2022 1:50pm Take 4 tabs within 1 hour prior to dental procedure Start: 07-12-2021 End: 08-13-2021 take 1 capsule by mouth once Cephalexin 500 mg capsule Discontinued 500 mg PO ONCE 4 July 12, 2021 12:00am August 13, 2021 1:24pm Within 1 hour prior to dental procedure. Start: 04-09-2021 End: 08-13-2021 take 4 capsules by mouth once Cephalexin 500 mg capsul e Discontinued 2000 mg PO ONCE 4 April 09, 2021 1:00am August 13, 2021 1:24pm Take within 1 hour prior to dental procedure Start: 04-09-2021 End: 08-13-2021 take 2000 mg by mouth once Cephalexin Discontinued 200 0 MG PO ONCE April 09, 2021 12:00am August 13, 2021 12:24pm Take within 1 hour prior to dental procedure cetirizine hydrochloride 10 mg oral capsule (20 sources) Histamine-1 Receptor Antagonist Start: 09-02-2020 End: 10-21-2024 take 1 capsule by mouth once daily Cetirizine (Zyrtec) 10 mg capsule Discontinued 10 mg PO DAILY September 02, 2020 12:00am October 21, 2024 9:44am ALLERGIES Start: 06-25-2020 take 1 tablet by doris th once daily cetirizine (ZYRTEC) 10 mg tablet Take 10 mg by mouth once daily. 06/25/2020 Active Comment on above: Take 10 mg by mouth once daily. clindamycin 300 mg oral capsule (19 sources) Lincosamide Antibacterial Start: 04-21-19 End: 08-14-19 take 3 capsules by mouth once Clindamycin Hcl 300 mg capsule Discontinued 900 mg PO ONCE 3 April 21, 2021 1:00am August 13, 2021 1:24pm Take within 1 hour prior to dental procedure Start: 04-21-2021 End: 08-13-2021 take 900 mg by mouth once Clindamycin Hcl Discontinued 900 MG PO ONCE 3 April 21, 2021 12:00am August 13, 2021 12:24pm Take within 1 hour prior to dental procedure colchicine 0.6 mg oral capsule (20 sources) Start: 06-08-2023 End: 09-08-2023 take 1 capsule by mouth once daily Colchicine 0.6 mg capsule Discontinued 0.6 mg PO DAILY June 08, 2023 12:00am September 08, 2023 2:08pm Start: 05-29-2023 End: 06-08-2023 take 1 capsule by mouth twice daily Colchicine 0.6 mg capsule Discontinued 0.6 mg PO TWICE A DAY 60 0 May 29, 2023 12:00am June 08, 2023 3:51pm avoid with grapefruit juice docusate sodium 50 mg oral capsule (19 sources) Start: 03-20-2019 End: 11-12-2019 take 1 capsule by mouth once daily Docusate Sodium (Stool Softener) 50 mg capsule Discontinued 50 mg PO DAILY March 20, 2019 1:00am November 12, 2019 2:23pm doxycycline monohydrate 100 mg oral tablet (20 sources) Tetracycline -class Drug Start: 11-07-2019 End: 07-01-2020 take 1 tablet by mouth twice daily Doxycycline Monohydrate 100 mg tablet Discontinued 100 mg PO TWICE A DAY 14 0 November 07, 2019 12:00am July 01, 2020 1:41pm Start: 06-13-2019 End: 08-28-2019 take 1 capsule by mouth twice daily Doxycycline Monohydrate 100 mg capsule Discontinued 100 mg PO TWICE A DAY 14 0 June 13, 2019 1:56pm August 28, 2019 1:38pm esomeprazole 40 mg delayed release oral capsule (20 sources) Proton Pump Inhibitor Start: 03-20-2019 End: 12-14-2020 take 1 capsule by mouth at bedtime Esomeprazole Magnesium 40 mg capsule,delayed release(DR/EC) Discontinued 40 mg PO AT BEDTIME 90 3 December 24, 2019 10:55am November 09, 2020 9:39am Start: 11-07-2018 End: 11-08-2018 take 1 capsule by mouth once daily Esomeprazole Magnesium 40 mg capsule,delayed release(DR/EC) Discontinued 40 mg PO DAILY 90 3 November 07, 2018 12:00am November 08, 2018 1:21pm Start: 10-10-2018 End: 10-15-2018 take 1 capsule by mouth once daily Esomeprazole Magnesium (Nexium) 20 mg capsule,delayed release(DR/EC) Discontinued 20 mg PO DAILY October 10, 2018 12:00am October 15, 2018 11:01am Fiber (13 sources) Start: 12-12-2022 End: 06-08-2023 take 1 tablet by mouth once daily Fiber tablet,chewable Discontinued 1 {tbl} PO DAILY December 12, 2022 12:00am June 08, 2023 3:51pm Start: 12-12-2022 take 1 tablet by mouth once da ernesto Fiber Active 1 TABLET PO DAILY December 11, 2022 11:00pm Start: 12-12-2022 take 1 tablet by mouth once da ernesto Fiber Active 1 TABLET PO DAILY December 12, 2022 12:00am Fluromethol (19 sources) Start: 10-10-2018 End: 10-15-2018 Fluromethol Discontinued OPH THALMIC 0 October 10, 2018 12:00am October 15, 2018 10:43am Start: 10-10-2018 End: 10-15-2018 Fluromethol Discontinued OPH THALMIC October 09, 2018 11:00pm October 15, 2018 9:43am Start: 10-10-2018 End: 10-15-2018 Fluromethol Discontinued OPH THALMIC October 10, 2018 12:00am October 15, 2018 10:43am fluticasone propionate 0.05 mg/actuat metered dose nasal spray (20 sources) Corticosteroid Start: 11-07-2019 End: 07-01-2020 take 50 ug nasal route once daily Fluticasone Propionate (Flonase Allergy Relief) 50 mcg/actuation spray,suspension Discontinued 2 NMA INTRANASAL DAILY 15.8 1 March 05, 2020 3:10pm July 01, 2020 1:42pm administer into each nostril Start: 11-07-2019 End: 07-01-2020 take 1 spray(s) nasal route once daily Fluticasone Propionate (Flonase Allergy Relief) 50 mcg/actuation spray,suspension Discontinued 2 SPRAY INTRANASAL DAILY 15.8 March 05, 2020 2:10pm July 01, 2020 12:42pm administer into each nostril hydrocortisone acetate 10 mg/ml / pramoxine hydrochloride 10 mg/ml rectal cream (19 sources) Corticosteroid Start: 07-01-2020 End: 09-24-2020 Hydrocortisone-Pramoxine 1-1 % cream Discontinued 1 NMA RC 3 to 4 times per day as needed for itching 30 July 01, 2020 12:00am September 24, 2020 10:06am Start: 07-01-2020 End: 09-24-2020 Hydrocortisone-Pramoxine Dis continued 1 APPLIC RC 3 to 4 times per day June 30, 2020 11:00pm September 24, 2020 9:06am hyoscyamine sulfate 0.125 mg sublingual tablet (19 sources) Start: 04-01-2016 End: 10-10-2018 take 1 tablet under the tongue every four hours as needed Hyoscyamine Sulfate 0.125 MG tablet, sublingual Discontinued 0.125 mg SL EVERY 4 HOURS NEEDED as needed for Gi Cramping April 01, 2016 1:00am October 10, 2018 7:49am ibuprofen 800 mg oral tablet (19 sources) Nonsteroidal Anti-inflammatory Drug Start: 11-26-2015 End: 10-10-2018 take 1 tablet by mouth every six hours as needed for pain Ibuprofen 800 MG tablet Discontinued 800 mg PO EVERY 6 HOURS NEEDED as needed for Pain November 26, 2015 12:00am October 10, 2018 7:49am L. Acidophilus-Dig Enz Cmb 5 (Probiotic-Digesti ve Enzymes) 5-250 mg Capsule (19 sources) Start: 11-30-2020 End: 09-07-2022 take 5 capsules by mouth three times daily L. Acidophilus-Dig Enz Cmb 5 (Probiotic-Digesti ve Enzymes) 5-250 mg Capsule Discontinued 1 NMA PO THREE TIMES A DAY November 30, 2020 12:00am September 07, 2022 10:57am colon Start: 11-30-2020 End: 09-07-2022 take 5 capsules by mouth three times daily L. Acidophilus-Dig Enz Cmb 5 (Probiotic-Digestive Enzymes) 5-250 mg Capsule Discontinued 1 NMA PO THREE TIMES A DAY November 30, 2020 12:00am September 07, 2022 10:57am Start: 11-30-2020 End: 09-07-2022 L. Acidophilus-Dig Enz Cmb 5 (Probiotic-Digestive Enzymes) 5-250 mg Capsule Discontinued 1 CAP PO THREE TIMES A DAY November 29, 2020 11:00pm September 07, 2022 9:57am Start: 11-30-2020 End: 09-07-2022 L. Acidophilus-Dig Enz Cmb 5 (Probiotic-Digestive Enzymes) 5-250 mg Capsule Discontinued 1 CAP PO THREE TIMES A DAY November 30, 2020 12:00am September 07, 2022 10:57am Start: 11-30-2020 L. Acidophilus -Dig Enz Cmb 5 (Probiotic-Digestive Enzymes) 5-250 mg Capsule Active 1 CAP PO THREE TIMES A DAY November 30, 2020 12:00am loratadine 10 mg oral tablet (20 sources) Start: 06-13-2019 End: 07-01-2020 take 1 tablet by mouth once daily as needed Loratadine 10 mg tablet Discontinued 10 mg PO DAILY as needed for allergy symptoms 90 June 28, 2019 8:59am November 07, 2019 10:25am losartan potassium 50 mg oral tablet (14 sources) Angiotensin 2 Receptor Lori Start: 10-03-2022 End: 11-28-2022 take 1 tablet by mouth once daily Losartan 50 mg tablet Discontinued 50 mg PO DAILY 30 October 03, 2022 12:00am November 28, 2022 2:51pm lubiprostone 0.024 mg oral capsule (19 sources) Chloride Channel Activator Start: 12-16-2020 End: 01-01-2021 take 1 capsule by mouth twice daily Lubiprostone (Amitiza) 24 mcg capsule Discontinued 24 ug PO TWICE A DAY 60 December 16, 2020 12:00am January 01, 2021 1:35pm Take one capsule by mouth two times a day. methylnaltrexone bromide 150 mg oral tablet (20 sources) Opioid Antagonist Start: 01-12-2021 End: 08-13-2021 take 1 tablet by mouth once daily Methylnaltrexone (Relistor) 150 mg tablet Discontinued 450 mg PO DAILY 90 3 January 12, 2021 1:00am August 13, 2021 1:26pm Start: 12-14-2020 End: 12-16-2020 take 1 tablet by mouth once daily in the morning Methylnaltrexone (Relistor) 150 mg tablet Discontinued 450 mg PO EVERY MORNING 90 0 December 14, 2020 12:00am December 16, 2020 8:30am methylPREDNISolone 4 mg oral tablet (16 sources) Corticosteroid Start: 07-09-2022 End: 07-29-2022 take 1 tablet by mouth once Methylprednisolone (Medrol (Etienne)) 4 mg tablets,dose pack Discontinued 0 PO per package directions 21 July 09, 2022 12:00am July 29, 2022 2:52pm PO PER PKG DIR 24 hr mirabegron 25 mg extended release oral tablet (19 sources) beta3-Adrenergic Agonist Start: 07-30-2019 End: 08-28-2019 take 1 tablet by mouth once daily Mirabegron (Myrbetriq) 25 mg tablet extended release 24 hr Discontinued 25 mg PO DAILY July 30, 2019 12:00am August 28, 2019 1:39pm montelukast 10 mg oral tablet (20 sources) Leukotriene Receptor Antagonist Start: 06-07-2024 End: 10-03-2024 take 1 tablet by mouth once daily in the evening Montelukast (Singulair) 10 mg tablet Discontinued 10 mg PO EVERY EVENING 20 June 07, 2024 12:00am October 03, 2024 2:07pm Start: 01-02-2020 End: 07-01-2020 take 1 tablet by mouth at bedtime Montelukast 10 mg tablet Discontinued 10 mg PO AT BEDTIME 90 0 June 22, 2020 10:55am July 01, 2020 1:42pm naloxegol 25 mg oral tablet (19 sources) Opioid Antagonist Start: 01-01-2021 End: 01-12-2021 take 1 tablet by mouth once daily in the morning Naloxegol (Movantik) 25 mg tablet Discontinued 25 mg PO EVERY MORNING 30 January 01, 2021 12:00am January 12, 2021 3:06pm must be taken on empty stomach; no food 1 hr after or 2-3 hrs before dose norethindrone acetate 5 mg oral tablet (4 sources) Start: 11-18-2022 End: 12-09-2022 norethindrone (AYGESTIN) 5 mg tablet Indications: abnormal uterine bleeding due to hormonal imbalance Take 1 tablet TID until bleeding stops, the BID x 3 days, the daily x 3 days. 35 tablet 0 11/18/2022 12/09/2022 Discontinued Comment on above: Take 1 tablet TID un til bleeding stops, the BID x 3 days, the daily x 3 days. omeprazole 40 mg delayed release oral capsule (20 sources) Proton Pump Inhibitor Start: 10-15-2018 End: 11-09-2018 take 1 capsule by mouth once daily Omeprazole 40 mg capsule,delayed release(DR/EC) Discontinued 40 mg PO DAILY 90 3 November 08, 2018 12:00am November 09, 2018 8:29am ondansetron 4 mg disintegrating oral tablet (20 sources) Serotonin-3 Receptor Antagonist Start: 12-10-2020 End: 12-12-2020 take 1-2 tablets by mouth every eight hours Ondansetron 4 mg tablet,disintegrati ng Discontinued 0 PO Q8H 12 0 December 10, 2020 12:00am December 12, 2020 10:42am 1-2 tabs PO every 8 hours; Start: 11-25-2019 End: 08-02-2022 take 1 tablet by mouth once daily ondansetron orally disintegrating (ZOFRAN ODT) 4 mg disintegrating tablet Take 1 tablet by mouth once daily. DISSOLVE ON TONGUE 30 tablet 0 11/25/2019 08/02/2022 Discontinued Comment on above: Take 1 tablet by doris th once daily. DISSOLVE ON TONGUE oxyCODONE hydrochloride 5 mg oral tablet (19 sources) Opioid Agonist Start: End: 1 take 5-10 mg by mouth every four hours as needed for pain Oxycodone 5 mg Tablet Discontinued 5 - 10 mg PO EVERY 4 HOURS NEEDED as needed for Pain Score 4-10 60 7 0 December 09, 2020 December 15, 2020 2:54pm Other acute postprocedural pain Other acute postprocedural pain pantoprazole 40 mg delayed release oral tablet (20 sources) Proton Pump Inhibitor Start: 2 End: 5 take 1 tablet by mouth once daily Pantoprazole 40 mg tablet,delayed release (DR/EC) Discontinued 40 mg PO DAILY 30 2 July 20, 2023 8:29am September 08, 2023 4:28pm take 1 tablet by mouth once daily Start: 12-14-2020 End: 09-03-2021 take 1 tablet by mouth twice daily Pantoprazole 40 mg tablet,delayed release (DR/EC) Discontinued 0 .ROUTE .COMPLEX 60 2 February 04, 2021 1:15pm September 03, 2021 7:49am take 1 tablet by mouth twice a day Start: 11-09-2018 End: 03-20-2019 take 1 tablet by mouth once daily Pantoprazole 40 mg tablet,delayed release (DR/EC) Discontinued 40 mg PO DAILY 30 November 09, 2018 12:00am March 20, 2019 12:38pm Comment on above: Take 40 mg by mouth once daily. polyethylene glycol 3350 43633 mg powder for oral solution (19 sources) Osmotic Laxative Start: 2018 End: 2018 Polyethylene Glycol 3350 (Miralax) 17 gram/dose powder Discontinued 17 g PO DAILY October 10, 2018 12:00am November 22, 2018 1:22pm prochlorperazine 5 mg oral tablet (19 sources) Phenothiazine Start: 2020 End: 2020 take 5-10 mg by mouth three to four times daily as needed for nausea and vomiting Prochlorperazine Maleate (Compazine) 5 mg tablet Discontinued 5 - 10 mg PO 3 to 4 times per day as needed for nausea and vomiting December 12, 2020 12:00am December 21, 2020 11:10am Status post total replacement of hip Nausea Presence of right artificial hip joint Nausea traMADol hydrochloride 50 mg oral tablet (20 sources) Opioid Agonist Start: 2020 End: 2022 take 50-100 mg by mouth every six hours as needed for pain Tramadol 50 mg tablet Discontinued 50 - 100 mg PO EVERY 6 HOURS as needed for pain December 25, 2020 2:07pm December 12, 2022 1:09pm Other acute postprocedural pain Other acute postprocedural pain Discontinue oxycodone. Comment on above: take 1 tablet by doris th at bedtime if needed for pain triamcinolone acetonide 1 mg/ml topical cream (19 sources) Corticosteroid Start: 2020 End: 2020 Triamcinolone Acetonide 0.1 % cream Discontinued 1 NMA TOPICAL TWICE A DAY as needed for rash 454 1 September 02, 2020 12:00am November 09, 2020 9:39am Vitamin B Complex (B Complex-Vitamin B12) tablet (20 sources) Start: 2020 End: 2023 Vitamin B Complex (B Complex-Vitamin B12) tablet Discontinued 1 {tbl} PO DAILY December 08, 2020 10:34am March 06, 2023 3:29pm deficiency Start: 12-08-2020 End: 03-06-2023 Vitamin B Complex (B Complex -Vitamin B12) tablet Discontinued 1 {tbl} PO DAILY December 08, 2020 10:34am March 06, 2023 3:29pm Start: 12-08-2020 End: 03-06-2023 take 1 tablet by mouth once daily Vitamin B Complex (B Complex-Vitamin B12) tablet Discontinued 1 TABLET PO DAILY December 08, 2020 9:34am March 06, 2023 2:29pm Start: 12-08-2020 take 1 tablet by doris once daily Vitamin B Complex (B Complex-Vitamin B12) tablet Active 1 TABLET PO DAILY December 08, 2020 10:34am Start: 07-30-2020 End: 12-08-2020 Vitamin B Complex (B Complex -Vitamin B12) tablet Discontinued 1 {tbl} PO DAILY July 30, 2020 11:06am December 08, 2020 10:34am Start: 07-30-2020 End: 12-08-2020 Vitamin B Complex (B Complex -Vitamin B12) tablet Discontinued 1 {tbl} PO DAILY July 30, 2020 11:06am December 08, 2020 10:34am Start: 07-30-2020 End: 12-08-2020 take 1 tablet by mouth once daily Vitamin B Complex (B Complex-Vitamin B12) tablet Discontinued 1 TABLET PO DAILY July 30, 2020 10:06am December 08, 2020 9:34am Start: 07-30-2020 End: 12-08-2020 take 1 tablet by mouth once daily Vitamin B Complex (B Complex-Vitamin B12) tablet Discontinued 1 TABLET PO DAILY July 30, 2020 11:06am December 08, 2020 10:34am Start: 07-28-2020 End: 07-30-2020 Vitamin B Complex (B Complex -Vitamin B12) tablet Discontinued 1 {tbl} PO DAILY 90 July 28, 2020 9:48am July 30, 2020 11:06am Start: 07-28-2020 End: 07-30-2020 Vitamin B Complex (B Complex -Vitamin B12) tablet Discontinued 1 {tbl} PO DAILY July 28, 2020 9:48am July 30, 2020 11:06am Start: 07-28-2020 End: 07-30-2020 take 1 tablet by mouth once daily Vitamin B Complex (B Complex-Vitamin B12) tablet Discontinued 1 TABLET PO DAILY July 28, 2020 8:48am July 30, 2020 10:06am Start: 07-28-2020 End: 07-30-2020 take 1 tablet by mouth once daily Vitamin B Complex (B Complex-Vitamin B12) tablet Discontinued 1 TABLET PO DAILY July 28, 2020 9:48am July 30, 2020 11:06am Start: 12-24-2019 End: 07-28-2020 Vitamin B Complex (B Complex -Vitamin B12) tablet Discontinued 1 {tbl} PO DAILY 90 December 24, 2019 10:56am July 28, 2020 9:48am Start: 12-24-2019 End: 07-28-2020 Vitamin B Complex (B Complex -Vitamin B12) tablet Discontinued 1 {tbl} PO DAILY December 24, 2019 10:56am July 28, 2020 9:48am Start: 12-24-2019 End: 07-28-2020 take 1 tablet by mouth once daily Vitamin B Complex (B Complex-Vitamin B12) tablet Discontinued 1 TABLET PO DAILY December 24, 2019 9:56am July 28, 2020 8:48am Start: 12-24-2019 End: 07-28-2020 take 1 tablet by mouth once daily Vitamin B Complex (B Complex-Vitamin B12) tablet Discontinued 1 TABLET PO DAILY December 24, 2019 10:56am July 28, 2020 9:48am Start: 08-21-2019 End: 12-24-2019 Vitamin B Complex (B Complex -Vitamin B12) tablet Discontinued 1 {tbl} PO DAILY 90 August 21, 2019 11:06am December 24, 2019 10:57am Start: 08-21-2019 End: 12-24-2019 Vitamin B Complex (B Complex -Vitamin B12) tablet Discontinued 1 {tbl} PO DAILY August 21, 2019 11:06am December 24, 2019 10:57am Start: 08-21-2019 End: 12-24-2019 take 1 tablet by mouth once daily Vitamin B Complex (B Complex-Vitamin B12) tablet Discontinued 1 TABLET PO DAILY August 21, 2019 10:06am December 24, 2019 9:57am Start: 08-21-2019 End: 12-24-2019 take 1 tablet by mouth once daily Vitamin B Complex (B Complex-Vitamin B12) tablet Discontinued 1 TABLET PO DAILY August 21, 2019 11:06am December 24, 2019 10:57am Start: 02-01-2019 End: 08-21-2019 Vitamin B Complex (B Complex -Vitamin B12) tablet Discontinued 1 {tbl} PO DAILY February 01, 2019 4:30pm August 21, 2019 11:06am Start: 02-01-2019 End: 08-21-2019 Vitamin B Complex (B Complex -Vitamin B12) tablet Discontinued 1 {tbl} PO DAILY February 01, 2019 4:30pm August 21, 2019 11:06am Start: 02-01-2019 End: 08-21-2019 take 1 tablet by mouth once daily Vitamin B Complex (B Complex-Vitamin B12) tablet Discontinued 1 TABLET PO DAILY February 01, 2019 3:30pm August 21, 2019 10:06am Start: 02-01-2019 End: 08-21-2019 take 1 tablet by mouth once daily Vitamin B Complex (B Complex-Vitamin B12) tablet Discontinued 1 TABLET PO DAILY February 01, 2019 4:30pm August 21, 2019 11:06am Start: 10-15-2018 End: 02-01-2019 Vitamin B Complex (B Complex -Vitamin B12) tablet Discontinued 1 {tbl} PO DAILY October 15, 2018 12:00am February 01, 2019 4:30pm Start: 10-15-2018 End: 02-01-2019 take 1 tablet by mouth once daily Vitamin B Complex (B Complex-Vitamin B12) tablet Discontinued 1 TABLET PO DAILY October 14, 2018 11:00pm February 01, 2019 3:30pm Start: 10-15-2018 End: 02-01-2019 take 1 tablet by mouth once daily Vitamin B Complex (B Complex-Vitamin B12) tablet Discontinued 1 TABLET PO DAILY October 15, 2018 12:00am February 01, 2019 4:30pm Problems Active Problems Problem Classification Problem Date Documented Da te Episodic/Chronic Abdominal hernia (20 sources) Diaphragmatic hernia; Translations: [Diaphragmatic hernia without obstruction or gangrene] 11-22-2019 Episodic Abdominal pain (20 sources) Abdominal pain; Translations: [Unspecified abdominal pain] Onset: 06-16-2009 06-16-2009 Episodic Acute bronchitis (20 sources) Acute bronchitis; Translations: [Acute bronchitis, unspecified] Episodic Allergic reactions (20 sources) Inflammatory dermatosis; Translations: [Dermatitis, unspecified] Episodic Anxiety disorders (20 sources) Anxiety; Translations: [Anxiety disorder, unspecified] Chronic Diverticulosis and diverticulitis (19 sources) Diverticulitis; Translations: [Diverticulitis of intestine, part unspecified, without perforation or abscess without bleeding] 11-22-2019 Chronic Esophageal disorders (20 sources) Gastric reflux; Translations: [Gastro-esophageal reflux disease without esophagitis] Onset: 05-29-2014 05-29-2014 Chronic Esophageal disorders (1 source) Esophageal disorders; Translations: [Gastroesophageal reflux disease with esophagitis without hemorrhage] Onset: 12-18-2023 Essential hypertension (20 sources) Hypertensive disorder; Translations: [Essential (primary) hypertension] Onset: 11-15-2024 Chronic Genitourinary symptoms and ill-defined conditions (15 sources) Urinary incontinence; Translations: [Unspecified urinary incontinence] 08-05-2022 Chronic Immunizations and screening for infectious disease (20 sources) Contact with or exposure to other viral diseases; Translations: [Lab test negative for COVID-19 virus] Episodic Inflammatory diseases of female pelvic organs (1 source) Ulcerative mucositis of vagina; Translations: [Mucositis (ulcerative) of vagina and vulva] Episodic Malaise and fatigue (10 sources) Fatigue; Translations: [Other fatigue] 10-03-2024 Episodic Menopausal disorders (20 sources) Postmenopausal bleeding; Translations: [Postmenopausal bleeding] 11-18-2022 Chronic Mood disorders (19 sources) Depressive disorder; Translations: [Depression] 11-22-2019 Chronic Noninfectious gastroenteritis (10 sources) Colitis; Translations: [Noninfective gastroenteritis and colitis, unspecified] Onset: 12-09-2024 10-21-2024 Episodic Nutritional deficiencies (19 sources) Vitamin deficiency; Translations: [Vitamin deficiency, unspecified] 11-22-2019 Episodic Osteoarthritis (20 sources) Osteoarthritis of right hip joint; Translations: [Unilateral primary osteoarthritis, right hip] 11-09-2020 Chronic Other and unspecified benign neoplasm (10 sources) Change in skin lesion; Translations: [Melanocytic nevi, unspecified] 10-03-2024 Episodic Other bone disease and musculoskeletal deformities (20 sources) Osteopenia; Translations: [Other specified disorders of bone density and structure, unspecified site] 08-13-2021 Episodic Other bone disease and musculoskeletal deformities (3 sources) Other specified disorders of bone density and structure, unspecified site; Translations: [Disorder of bone and cartilage, unspecified] Onset: 12-18-2023 Episodic Other bone disease and musculoskeletal deformities (15 sources) Osteopenia with high fracture risk; Translations: [Other specified disorders of bone density and structure, unspecified site] 01-15-2024 Episodic Other circulatory disease (19 sources) Nasal discharge; Translations: [Other specified symptoms and signs involving the circulatory and respiratory systems] 11-23-2020 Episodic Other connective tissue disease (20 sources) History of total hip arthroplasty; Translations: [Presence of unspecified artificial hip joint] 05-02-2022 Chronic Other connective tissue disease (2 sources) Presence of right artificial hip joint; Translations: [Hip joint replacement] 05-02-2022 Chronic Other connective tissue disease (3 sources) History of total replacement of right hip joint; Translations: [Presence of right artificial hip joint] 05-02-2022 Chronic Other connective tissue disease (20 sources) Fibromyalgia; Translations: [Fibromyalgia] Onset: 05-29-2014 05-29-2014 Episodic Other connective tissue disease (16 sources) Trochanteric bursitis; Translations: [Trochanteric bursitis, right hip] 09-02-2020 Episodic Other connective tissue disease (19 sources) Iliotibial band friction syndrome of right knee; Translations: [Iliotibial band syndrome, right leg] 09-24-2020 Episodic Other connective tissue disease (3 sources) Trochanteric bursitis of right hip; Translations: [Trochanteric bursitis, right hip] 09-02-2020 Episodic Other connective tissue disease (1 source) Fibromyalgia; Translations: [Fibromyalgia] Onset: 10-03-2024 Episodic Other diseases of veins and lymphatics (15 sources) Venous insufficiency of leg; Translations: [Venous insufficiency (chronic) (peripheral)] 09-07-2022 Episodic Other diseases of veins and lymphatics (6 sources) Venous insufficiency (chronic) (peripheral); Translations: [Venous (peripheral) insufficiency, unspecified] 09-07-2022 Episodic Other disorders of stomach and duodenum (19 sources) Gastroparesis syndrome; Translations: [Gastroparesis] 12-22-2020 Episodic Other ear and sense organ disorders (13 sources) Impacted cerumen; Translations: [Impacted cerumen, right ear] 07-09-2022 Episodic Other ear and sense organ disorders (3 sources) Impacted cerumen, right ear; Translations: [Impacted cerumen] 07-09-2022 Episodic Other ear and sense organ disorders (4 sources) Impacted cerumen in right ear; Translations: [Impacted cerumen, right ear] 12-23-2023 Episodic Other female genital disorders (1 source) Vaginal bleeding; Translations: [Abnormal uterine and vaginal bleeding, unspecified] Chronic Other female genital disorders (2 sources) Vaginal irritation; Translations: [Other specified noninflammatory disorders of vagina] Episodic Other female genital disorders (1 source) Pruritus of vagina; Translations: [Other specified noninflammatory disorders of vagina] 10-17-2022 Episodic Other female genital disorders (1 source) Vaginal discomfort; Translations: [Unspecified condition associated with female genital organs and menstrual cycle] 08-18-2023 Episodic Other female genital disorders (1 source) Vaginal odor; Translations: [Other specified noninflammatory disorders of vagina] 03-21-2024 Episodic Other gastrointestinal disorders (19 sources) Irritable bowel syndrome; Translations: [Irritable bowel syndrome without diarrhea] 11-22-2019 Chronic Other gastrointestinal disorders (19 sources) Dysphagia; Translations: [Dysphagia, unspecified] 11-06-2020 Episodic Other gastrointestinal disorders (19 sources) Disorder of intestine; Translations: [Other specified diseases of intestine] 11-26-2020 Episodic Other gastrointestinal disorders (19 sources) Therapeutic opioid induced constipation; Translations: [Drug induced constipation] 11-26-2020 Episodic Other gastrointestinal disorders (20 sources) Constipation; Translations: [Constipation, unspecified] 11-06-2020 Episodic Other gastrointestinal disorders (1 source) Diarrhea, unspecified; Translations: [Diarrhea, unspecified] Onset: 11-22-2024 Episodic Other infections; including parasitic (19 sources) H/O: viral illness; Translations: [Personal history of other infectious and parasitic diseases] 11-12-2019 Episodic Other nervous system disorders (19 sources) Carpal tunnel syndrome; Translations: [Carpal tunnel syndrome, unspecified upper limb] 11-22-2019 Chronic Other nervous system disorders (19 sources) Acute postoperative pain; Translations: [Other acute postprocedural pain] 12-09-2020 Episodic Other non-traumatic joint disorders (19 sources) Hip pain; Translations: [Pain in right hip] 09-02-2020 Episodic Other nutritional; endocrine; and metabolic disorders (20 sources) Obese class I; Translations: [Obesity, unspecified] Onset: 12-28-2018 12-28-2018 Chronic Other nutritional; endocrine; and metabolic disorders (16 sources) Body mass index 30+ - obesity; Translations: [Obesity, unspecified] 07-29-2022 Chronic Other nutritional; endocrine; and metabolic disorders (6 sources) Obesity, unspecified; Translations: [Obesity, unspecified] 07-29-2022 Chronic Other nutritional; endocrine; and metabolic disorders (7 sources) Overweight; Translations: [Overweight] 11-21-2022 Episodic Other screening for suspected conditions (not mental disorders or infectious disease) (16 sources) Endometrium thickened; Translations: [Abnormal findings on diagnostic imaging of other specified body structures] 12-09-2022 Chronic Other screening for suspected conditions (not mental disorders or infectious disease) (18 sources) Patient encounter status; Translations: [Encounter for screening mammogram for malignant neoplasm of breast] Onset: 11-28-2024 Episodic Other skin disorders (18 sources) Eruption; Translations: [Rash and other nonspecific skin eruption] 09-14-2021 Episodic Other upper respiratory infections (10 sources) Sinusitis; Translations: [Chronic sinusitis, unspecified] 06-08-2023 Chronic Other upper respiratory infections (20 sources) Acute upper respiratory infection; Translations: [Acute upper respiratory infection, unspecified] 02-08-2021 Episodic Prolapse of female genital organs (20 sources) Cystocele; Translations: [Cystocele, unspecified] Onset: 06-03-2021 Chronic Rehabilitation care; fitting of prostheses; and adjustment of devices (3 sources) Patient encounter status; Translations: [Encounter for fitting and adjustment of other specified devices] Chronic Residual codes; unclassified (19 sources) History of operative procedure on shoulder; Translations: [Other specified postprocedural states] 07-30-2020 Episodic Comment on above2019 Residual codes; unclassified (2 sources) Asymptomatic menopausal state; Translations: [Asymptomatic menopausal state] Onset: 10-03-2024 Episodic Rheumatoid arthritis and related disease (19 sources) Rheumatoid arthritis; Translations: [Rheumatoid arthritis, unspecified] 11-25-2020 Chronic Screening and history of mental health and substance abuse codes (19 sources) History of clinical finding in subject; Translations: [Personal history of other mental and behavioral disorders] 11-22-2019 Episodic Spondylosis; intervertebral disc disorders; other back problems (20 sources) Degeneration of lumbar intervertebral disc; Translations: [Other intervertebral disc degeneration, lumbar region] 05-02-2022 Chronic Spondylosis; intervertebral disc disorders; other back problems (20 sources) Low back pain; Translations: [Low back pain] 05-02-2022 Episodic Substance-related disorders (19 sources) Narcotic drug user; Translations: [Opioid use, unspecified, uncomplicated] 11-09-2020 Episodic Unclassified (2 sources) Unknown / UNK(Unknown) Onset: 09-09-2016 Unclassified (5 sources) Patient encounter status 08-05-2024 Unclassified (3 sources) Encounter for health maintenance examination Unclassified (6 sources) Z00.00 - Encounter for general adult medical examination without abnormal findings Viral infection (18 sources) Disease caused by 2019-nCoV; Translations: [COVID-19] 02-05-2022 Episodic Past or Other Problems Problem Classification Problem Date Documented Da te Episodic/Chronic Administrative/social admission (1 source) Dietary counseling and surveillance; Translations: [Dietary counseling] Onset: 12-18-2023 Episodic Diseases of mouth; excluding dental (20 sources) Xerostomia; Translations: [Dry mouth, unspecified] Onset: 06-05-2024 06-05-2024 Episodic Other aftercare (20 sources) Polypharmacy ; Translations: [Other longterm (current) drug therapy] Onset: 07-06-2015 07-06-2015 Episodic Other bone disease and musculoskeletal deformities (1 source) Other specified disorders of bone density and structure, other site; Translations: [Osteopenia of lumbar spine] Onset: 08-05-2024 Episodic Other connective tissue disease (20 sources) Calcaneal spur; Translations: [Calcaneal spur, unspecified foot] Onset: 06-01-2009 06-01-2009 Episodic Other connective tissue disease (13 sources) Pain in limb; Translations: [Pain in unspecified limb] Onset: 08-27-2007 Resolved: 05-29-2014 05-29-2014 Episodic Other gastrointestinal disorders (11 sources) Constipation, unspecified; Translations: [Constipation, unspecified] Onset: 08-27-2024 Episodic Other lower respiratory disease (20 sources) Chronic cough; Translations: [Chronic cough] Onset: 08-21-2024 06-05-2024 Episodic Other non-traumatic joint disorders (1 source) Pain in left hip; Translations: [Pain in left hip] Onset: 02-15-2024 Episodic Other nutritional; endocrine; and metabolic disorders (1 source) Overweight; Translations: [Overweight] Onset: 12-18-2023 Episodic Other skin disorders (13 sources) Ingrowing nail; Translations: [Ingrowing nail] Onset: 08-27-2007 Resolved: 05-29-2014 05-29-2014 Episodic Residual codes; unclassified (20 sources) H/O: urinary disease; Translations: [Personal history of other specified conditions] Onset: 07-06-2015 07-06-2015 Episodic Unclassified (1 source) ABN CT ABDOMEN Onset: 09-09-2016 Unclassified (1 source) RECURRENT DIVERTICULITIS Onset: 09-01-2017 Results Test Name Value Interpretation Reference Range Facility Calprotectin, Stoolon [address] 65 ug/g Normal 0-120 [facility] Comment on above: Result Comment: Conc entration Interpretation Follow-Up < 5 - 50 ug/g Normal None >50 -120 ug/g Borderline Re-evaluate in 4-6 weeks >120 ug/g Abnormal Repeat as clinically indicated Performed at: [facility] [address] [id number] Capacity Planning Engineer: Bethany Price MD, Phone: [phone] Performed By: #### L 7000.0700 ####[facility] [address] [place], [address] CBC W/Diff, Automatedon 10-0 7-2024 Absolute Lymph 2.80 X10 3/uL Normal 0.83-4.51 [facility] Comment on above: Performed By: #### L [id number], L100.0100 ####[facility] [address] [place], [address] Absolute Neut 5.2 X10 3/uL Normal 2.0-7.7 [facility] Comment on above: Performed By: #### L [id number], L100.0100 ####[facility] [address] [place], [address] Basophils/100 WBC (Bld) 1.0 % Normal 0-1 [facility] Comment on above: Performed By: #### L 500.4050, L100.0100 ####[facility] [address] [place], [address] Eosinophils/100 WBC (Bld) 1.3 % Normal 0-5 [facility] Comment on above: Performed By: #### L [id number], L100.0100 ####[facility] [address] [place], [address] Erythrocyte distribution width (RBC) [Ratio] 12.1 % Normal 11.6-14.6 [facility] Comment on above: Performed By: #### L [id number], L100.0100 ####[facility] [address] [place], [address] Hematocrit (Bld) [Volume fraction] 44.4 % Normal 37-47 [facility] Comment on above: Performed By: #### L 500.4050, L100.0100 ####[facility] [address] [place], [address] Hemoglobin (Bld) [Mass/Vol] 15.1 g/dL High 12.0-15.0 [facility] Comment on above: Performed By: #### L 500.4050, L100.0100 ####[facility] [address] [place], [address] IG% 0.200 Normal 0.0-0.9 [facility] Comment on above: Result Comment: IG% - Immature Granulocytes (promyelocytes, myelocytes and metamyelocytes) > 1% indicates that a LEFT SHIFT is Present. Performed By: #### L [id number], L100.0100 ####[facility] [address] [place], [address] Lymphocytes/100 WBC (Bld) 32.2 % Normal 19-41 [facility] Comment on above: Performed By: #### L 500.4050, L100.0100 ####[facility] [address] [place], [address] MCH (RBC) [Entitic mass] 31.5 pg Normal 27.0-32.0 [facility] Comment on above: Performed By: #### L 500.4050, L100.0100 ####[facility] [address] [place], [address] MCHC (RBC) [Mass/Vol] 34.0 g/dL Normal 32-36 [facility] Comment on above: Performed By: #### L 500.4050, L100.0100 ####[facility] [address] [place], [address] MCV (RBC) [Entitic vol] 92.5 fL Normal 81-99 [facility] Comment on above: Performed By: #### L 500.4050, L100.0100 ####[facility] [address] [place], [address] Monocytes/100 WBC (Bld) 5.2 % Normal 0-10 [facility] Comment on above: Performed By: #### L 500.4050, L100.0100 ####[facility] [address] [place], [address] Neutrophils/100 WBC (Bld) 60.1 % Normal 47-70 [facility] Comment on above: Performed By: #### L 500.4050, L100.0100 ####[facility] [address] [place], [address] Nucleated RBC (Bld) [#/Vol] 0 10*3/uL Normal 0-5 [facility] Comment on above: Performed By: #### L 500.4050, L100.0100 ####[facility] [address] [place], [address] Platelet mean volume (Bld) [Entitic vol] 11.7 fL Normal 6.2-12.0 [facility] Comment on above: Performed By: #### L 500.4050, L100.0100 ####[facility] [address] [place], [address] Platelets (Bld) [#/Vol] 226 10*3/uL Normal 150-450 [facility] Comment on above: Performed By: #### L 500.4050, L100.0100 ####[facility] [address] [place], [address] RBC (Bld) [#/Vol] 4.80 10*6/uL Normal 4.2-5.4 [facility] Comment on above: Performed By: #### L 500.4050, L100.0100 ####[facility] [address] [place], [address] RDW SD 41.2 fl Normal 35.1-43.9 [facility] Comment on above: Performed By: #### L 500.4050, L100.0100 ####[facility] [address] [place], [address] WBC (Bld) [#/Vol] 8.7 10*3/uL Normal 4.4-11.0 [facility] Comment on above: Performed By: #### L 500.4050, L100.0100 ####[facility] [address] [place], [address] CNOVon 12-03-2024 CNOV Office Visit ([facility]) -------- YVONNE LOMELI ([id number]) 1955 F Date Time Provider Department 12/03/24 12:30 PM FIDENCIO GARCES During your visit today, we recorded the following information about you: Temperature Pulse Respiration Blood pressure 97.9 degrees 69/minute 20/minute 159/73 Weight 66 kg Fidencio Garces PA 12/03/2024 12:41 PM Signed [facility] Subjective Yvonne Amilcar Dusty is a 69 year old female. Patient presents with: Abdominal Pain: LLQ abdominal spasms, intermittent with sharp pain increasing in frequency. X 1 day HPI The patient is a 69-year-old female with a history of diverticulitis, presenting with acute onset LLQ abdominal pain. LLQ Abdominal Pain: - Acute onset sharp, intermittent pain in the LLQ since yesterday. - Pain occurs every 5 minutes or longer. - Denies fever, emesis, diarrhea, or hematochezia. - Chronic constipation. - Recent colitis infection treated in the ER in early October; follow-up test showed no infection 1-2 weeks ago. - Unable to tolerate antibiotics for diverticulitis due to severe nausea, even with antiemetics. - Financial concerns about ER visits. PAST MEDICAL HISTORY Diagnosis Date Dysthymic disorder Depression (non-psychotic) Essential hypertension Generalized anxiety disorder Anxiety, Generalized Irritable bowel syndrome Irritable bowel Myalgia and myositis, unspecified Osteopenia after menopause 06/2021 PMB (postmenopausal bleeding) Rotator cuff injury R side PAST SURGICAL HISTORY Procedure Laterality Date CHOLECYSTECTOMY Cholecystectomy COLONOSCOPY 05/2009 COLONOSCOPY FLX DX W/COLLJ SPEC WHEN PFRMD 05/2006 Colonoscopy COLONOSCOPY FLX DX W/COLLJ SPEC WHEN PFRMD 11/13/2013 ESOPHAGOGASTRODUODENOSCO PY TRANSORAL DIAGNOSTIC EGD ESOPHAGOGASTRODUODENOSCO PY TRANSORAL DIAGNOSTIC 11/13/2013 EGD HYSTEROSCOPY BX ENDOMETRIUMAND/POLYPC W/WO DANDC 12/16/2022 hysteroscopy DANDC INJECTION 12/07/2022 back NEUROPLASTY AND/TRANSPOS MEDIAN NRV CARPAL TUNNE Carpal tunnel decomp, right PAST SURGICAL HISTORY OF Removal bone spur right shoulder PAST SURGICAL HISTORY OF 09/15/2017 removal part of colon for diverticulitis SHOULDER SURGERY HX TONSILLECTOMY PRIMARY/SECONDARY Tonsillectomy ALLERGIES Reglan [Metoclopramide Hcl], Doxycycline, and Phentolamine MEDICATIONS vitamin b complex capsule Take 1 capsule by mouth once daily. Ascorbic Acid (VITAMIN C) 1,000 mg tablet Take 1,000 mg by mouth once daily. COLLAGEN MISC 1 scoop once daily. estradiol (ESTRACE) 0.01 % (0.1 mg/gram) vaginal cream Use 1 g vaginally at bedtime for 2 weeks then 3 times/weeks for maintenance. clobetasol (TEMOVATE) 0.05 % cream Apply to affected area 2x/day for 2 weeks. ofloxacin (FLOXIN) 0.3 % otic solution Use 5 Drops in both ears once daily. pantoprazole DR (PROTONIX) 40 mg tablet Take 40 mg by mouth once daily. OTC PRODUCT Take by mouth once daily. FD vanessa For acid reflux traMADol (ULTRAM) 50 mg tablet take 1 tablet by mouth at bedtime if needed for pain cetirizine (ZYRTEC) 10 mg tablet Take 10 mg by mouth once daily. azelastine (ASTELIN) 0.1% nasal spray instill 2 sprays into each nostril twice a day L. acidophilus-L. rhamnosus 15 billion cell cap Take 1 capsule by mouth once daily. FLORAJEN WOMEN. If on antibiotic, take at least 1-2 hours before or after antibiotic. KEEP REFRIGERATED RESTASIS MULTIDOSE 0.05 % drop put 1 drop in into both eyes twice a day fluorometholone (FML LIQUID FILM) 0.1 % ophthalmic suspension Use 1 Drop in both eyes twice daily. SENOKOT-S 8.6-50 mg per tablet Take 2 tablets by mouth daily at bedtime. Daily, Every other day to every other day as needed tiZANidine (ZANAFLEX) 4 mg tablet Take 1 tablet by mouth once daily. cyanocobalamin 1,000 mcg tab Take 1 tablet by mouth once daily. ergocalciferol, vitamin D2, 2,000 unit tab Take 1 tablet by mouth once each week. azithromycin (ZITHROMAX) 250 mg tablet Take 250 mg by mouth as directed. For dental. cephALEXin (KEFLEX) 500 mg capsule Take 500 mg by mouth as directed. 1 hour before dental appointment. FAMILY HISTORY Problem Relation Age of Onset Heart Mother Hypertension Mother Lipids Father Diabetes Paternal Grandmother Breast Cancer Maternal Aunt Breast Cancer Maternal Aunt SOCIAL HISTORY[1] Review of Systems Constitutional: (-) fever Gastrointestinal: (+) sharp intermittent left lower abdominal pain, (+) abdominal tenderness, (+) constipation, (-) vomiting, (-) diarrhea, (-) hematochezia Objective BP 159/73 Pulse 69 Temp 36.6 ?C (97.9 ?F) Resp 20 Wt 66 kg (145 lb 8.1 oz) LMP 08/31/2008 SpO2 97% BMI 28.42 kg/m? Physical Exam General: Not in acute distress, normal appearance, well-developed, not toxic-appearing Cardiovascular - Rate/Rhythm: Normal rate and regular rhythm - Heart Lyssa (more content not included)... Normal [facility] Metabolic Prof ilon 12-03-2024 Albumin [Mass/Vol] 4.7 g/dL Normal 3.4-4.8 [facility] Comment on above: Performed By: #### L 500.4050, L100.0100 ####[facility] [address] [place], [place], [address] Albumin/Globulin [Mass ratio] 1.4 {ratio} Normal 0.9-2.4 [facility] Comment on above: Performed By: #### L 500.4050, L100.0100 ####[facility] [address] [place], [address] ALK PHOS 80 U/L Normal 35-104 [facility] Comment on above: Performed By: #### L 500.4050, L100.0100 ####[facility] [address] [place], [address] ALT [Catalytic activity/Vol] 25 U/L Normal <=34 [facility] Comment on above: Performed By: #### L 500.4050, L100.0100 ####[facility] [address] [place], [address] AST [Catalytic activity/Vol] 29 U/L Normal <=31 [facility] Comment on above: Performed By: #### L 500.4050, L100.0100 ####[facility] [address] [place], [address] Bilirubin [Mass/Vol] 0.69 mg/dL Normal 0.00-1.30 [facility] Comment on above: Performed By: #### L 500.4050, L100.0100 ####[facility] [address] [place], [address] BUN/CRE 20.2 RATIO High 10-20 [facility] Comment on above: Performed By: #### L 500.4050, L100.0100 ####[facility] [address] [place], [address] Calcium [Mass/Vol] 9.5 mg/dL Normal 7.6-11.0 [facility] Comment on above: Performed By: #### L 500.4050, L100.0100 ####[facility] [address] [place], [address] Chloride [Moles/Vol] 102 mmol/L Normal 98-108 [facility] Comment on above: Performed By: #### L 500.4050, L100.0100 ####[facility] [address] [place], [address] CO2 [Moles/Vol] 26.3 mmol/L Normal 21.0-32.0 [facility] Comment on above: Performed By: #### L 500.4050, L100.0100 ####[facility] [address] [place], [address] Creatinine [Mass/Vol] 0.79 mg/dL Normal 0.70-1.20 [facility] Comment on above: Performed By: #### L 500.4050, L100.0100 ####[facility] [address] [place], [address] GAP 11 Normal 5-15 [facility] Comment on above: Performed By: #### L 500.4050, L100.0100 ####[facility] [address] [place], [address] GFR/1.73 sq M.predicted among non-blacks MDRD (S/P/Bld) [Vol rate/Area] 81 mL/min/{1.73_m2} Normal >60 [facility] Comment on above: Result Comment: mL/m in/1.73m2 CKD-EPI Creatinine Equation (2020) Performed By: #### L 500.4050, L100.0100 ####[facility] [address] [place], [address] Globulin (S) [Mass/Vol] 3.4 g/dL Normal 2.2-4.2 [facility] Comment on above: Performed By: #### L 500.4050, L100.0100 ####[facility] [address] [place], [address] Glucose [Mass/Vol] 109 mg/dL High 70-99 [facility] Comment on above: Performed By: #### L 500.4050, L100.0100 ####[facility] [address] [place], [address] Potassium [Moles/Vol] 3.9 mmol/L Normal 3.3-5.1 [facility] Comment on above: Performed By: #### L 500.4050, L100.0100 ####[facility] [address] [place], [address] Sodium [Moles/Vol] 140 mmol/L Normal 133-145 [facility] Comment on above: Performed By: #### L 500.4050, L100.0100 ####[facility] [address] [place], [address] T PROT 8.1 g/dL Normal 5.9-8.4 [facility] Comment on above: Performed By: #### L 500.4050, L100.0100 ####[facility] [address] [place], [address] Urea nitrogen [Mass/Vol] 16 mg/dL Normal 4-19 [facility] Comment on above: Performed By: #### L 500.4050, L100.0100 ####[facility] [address] [place], [address] MONAE SCREENING W TOMOon 11-28 MONAE SCREENING W HILARY * * *Final Report* * * DATE OF EXAM: Nov 28 2024 1:13PM [facility] 0582 - MONAE SCREENING W HILARY / PROCEDURE REASON: multiple diagnoses * * * * Physician Interpretation * * * * RESULT: [address] [address] #[id number] - MONAE SCREENING W HILARY HISTORY: 69 year-old patient presents for screening. Patient is asymptomatic in both breasts. Patient states no personal history of breast cancer. The patient has a family history of breast cancer. COMPARISON STUDIES: The present examination has been compared to prior imaging studies dated 12/03/2018 (mammogram), 05/25/2020 (mammogram), 07/19/2021 (mammogram), 08/05/2022 (mammogram) and 08/18/2023 (mammogram). MAMMOGRAM TECHNIQUE: The study was acquired using full field digital technology and interpreted from soft copy. Digital Breast Tomosynthesis (DBT) images were obtained and used to assist in the interpretation of this examination. MAMMOGRAM FINDINGS: There are scattered areas of fibroglandular density. No suspicious masses, calcifications or other abnormalities are seen in either breast. There are no significant interval changes. IMPRESSION: There is no mammographic evidence of malignancy in either breast. Routine screening mammogram is recommended. Annual mammogram will be due in 1 year. BI-RADS Category 1: Negative RISK: Based on the Tyrer-Cuzick (TC) risk assessment model, this patient has a 5.0% lifetime risk of developing breast cancer, meaning they are at average risk for developing breast cancer. However, this is only an estimate based on available history provided on the patient's questionnaire. We encourage all patients to talk with their providers about these results, further recommendations for managing breast health, and appropriate supplemental screening options if the patient has dense breast tissue. Interpreting Radiologist: Erlinda Godwin M.D. Electronically signed on: 12/02/2024 Market Specialist: ЕКАТЕРИНА Transcribe Date/Time: Nov 28 2024 12:36P Dictated by: ERLINDA GODWIN MD This examination was interpreted and the report reviewed and electronically signed by: ERLINDA GODWIN MD on Dec 02 2024 8:07AM EST [id number] Normal [facility] M7400.3302on 11-18-2024 M7400.3302 ____ TESTING PERFORMED AT [facility]. ORIGINAL REPORT ON FILE IN LAB CONTAINS ADDITIONAL TEST SITE INFORMATION. Giardia Lamblia EIA NEGATIVE Normal [facility] Comment on above: Performed By: #### L 3410.9992, M7400.3302, M600.5000 ####[facility] [address] [place], [place], [address] Ova and Parasites 8623on OP OVA AND PARASITES EX AM, ROUTINE These results were obtained using wet preparation(s) and trichrome stained smear. This test does not include testing for Crytosporidium parvum, Cyclospora, or Microsporidia. One negative specimen does not rule out the possibility of a parasitic infection. [facility] ORIGINAL REPORT ON FILE IN LAB CONTAINS ADDITIONAL TEST SITE INFORMATION. Ova/Parasite Exam NO OVA, CYSTS, OR PARASITES FOUND. Normal [facility] Comment on above: Performed By: #### L 3410.9992, M7400.3302, M600.5000 ####[facility] [address] [place], [address] L3410.9992on 11-16-2024 [facility] COM[facility] Normal . [facility] Comment on above: Order Comment: [id number] STOOL CULTURE Result Comment: Test Ordered: [id number] Stool Culture Salmonella/Shigella Screen Note: Final report Reference Range: . Result 1 Comment CB Reference Range: . No Salmonella or Shigella recovered. Campylobacter Culture Note: CB Final report Reference Range: . Result 1 Comment CB Reference Range: . No Campylobacter species isolated. E coli Shiga Toxin EIA Negative CB Reference Range: Negative Performed at: - [facility] [id number] Capacity Planning Engineer: Santi Singletary PhD, Phone: [phone] Performed By: #### L 3410.9992, M7400.3302, M600.5000 #### [facility] [address] [place], [place], [address] Calprotectin, Stoolon [address] 143 ug/g Abnormal 0-120 [facility] Comment on above: Result Comment: Conc entration Interpretation Follow-Up < 5 - 50 ug/g Normal None >50 -120 ug/g Borderline Re-evaluate in 4-6 weeks >120 ug/g Abnormal Repeat as clinically indicated Performed at: - [facility] [address] [place] [id number] Capacity Planning Engineer: Bethany Price MD, Phone: [phone] Performed By: #### L 7000.0700, M100.0605 ####[facility] [address] [place], [place], [id number] Calprotectin stoolOrdered By : Vinicius Ross on 11-07-2024 Calprotectin stool 143 ug/g High 0-120 [facility] Comment on above: Concentration Interp retation Follow-Up< 5 - 50 ug/g Normal None>50 -120 ug/g Borderline Re-evaluate in 4-6 weeks >120 ug/g Abnormal Repeat as clinically indicatedPerformed at: [facility] [place] [id number] Director: Bethany Price MD, Phone: [phone] Stool Lactoferrin/WBCon 10-28 WBCST Normal Reference Ran ge = Negative Fecal WBC Lactoferrin Negative: No Fecal WBC Lactoferrin present Normal [facility] Comment on above: Performed By: #### L 7000.0700, M100.0605 ####[facility] [address] [place], [place], [id number] Stool lactoferrin detection by immunoassayOrdered By: Vinicius Ross on 11-07-2024 Lactoferrin IA Ql (Stl) [facility] Absolute lymphocyte countOrd ered By: Soo Ladd on 11-04-2024 Lymphocytes Auto (Unsp spec) [#/Vol] 2.72 10*3/uL 0.83-4.51 [facility] Absolute neutrophil countOrd ered By: Kieshaphilip Harplizzyalicia on 11-04-2024 Neutrophils (Bld) [#/Vol] 6.1 10*3/uL 2.0-7.7 [facility] Anion gap in Serum or Plasma Ordered By: Soo Ladd on 11-04-2024 Anion gap [Moles/Vol] 11 mmol/L 5-15 [facility] Automated blood erythrocyte countOrdered By: Soo Ladd on 11-04-2024 RBC (Bld) [#/Vol] 4.60 10*6/uL Normal 4.2-5.4 [facility] Comment on above: Order Comment: AYSHA Vargas SEND CBCD RESULTS TO DR. ROSS ALSO Performed By: #### L 500.4050, L506.0400, L501.9520, L506.1001, L100.0100 #### [facility] [address] [facility] [place], [place], [address] Automated blood hematocrit ( percentage)Ordered By: Soo Ladd on 11-04-2024 Hematocrit (Bld) [Volume fraction] 43.5 % Normal 37-47 [facility] Comment on above: Order Comment: AYSHA Vargas SEND CBCD RESULTS TO DR. ROSS ALSO Performed By: #### L 500.4050, L506.0400, L501.9520, L506.1001, L100.0100 #### [facility] [address] [facility] [place], [place], [address] Automated lymphocyte count a s percentage of total leukocytesOrdered By: Soo Ladd on 11-04-2024 Lymphocytes/100 WBC Auto (Unsp spec) 28.1 % 19-41 [facility] BUN/creatinine ratioOrdered By: Soo Ladd on 11-04-2024 Urea nitrogen/Creatinine [Mass ratio] 23.9 mg/mg High 10-20 [facility] Basophil percentageOrdered B y: Soo Ladd on 11-04-2024 Basophils/100 WBC (Bld) 1.1 % High 0-1 [facility] Comment on above: Order Comment: AYSHA Vargas SEND CBCD RESULTS TO DR. ROSS ALSO Performed By: #### L 500.4050, L506.0400, L501.9520, L506.1001, L100.0100 #### [facility] [address] [place], [address] Bilirubin, totalOrdered By: Soo Starralicia on 11-04-2024 Bilirubin [Mass/Vol] 0.36 mg/dL 0.00-1.30 [facility] CBC W/Diff, Automatedon Absolute Lymph 2.72 X10 3/uL Normal 0.83-4.51 [facility] Comment on above: Order Comment: AYSHA Vargas SEND CBCD RESULTS TO DR. ROSS ALSO Performed By: #### L 500.4050, L506.0400, L501.9520, L506.1001, L100.0100 #### [facility] [address] [place], [address] Absolute Neut 6.1 X10 3/uL Normal 2.0-7.7 [facility] Comment on above: Order Comment: AYSHA Vargas SEND CBCD RESULTS TO DR. ROSS ALSO Performed By: #### L 500.4050, L506.0400, L501.9520, L506.1001, L100.0100 #### [facility] [address] [place], [address] IG% 0.300 Normal 0.0-0.9 [facility] Comment on above: Order Comment: AYSHA Vargas SEND CBCD RESULTS TO DR. ROSS ALSO Result Comment: IG% - Immature Granulocytes (promyelocytes, myelocytes and metamyelocytes) > 1% indicates that a LEFT SHIFT is Present. Performed By: #### L 500.4050, L506.0400, L501.9520, L506.1001, L100.0100 #### [facility] [address] [place], [address] Lymphocytes/100 WBC (Bld) 28.1 % Normal 19-41 [facility] Comment on above: Order Comment: AYSHA Vargas SEND CBCD RESULTS TO DR. ROSS ALSO Performed By: #### L 500.4050, L506.0400, L501.9520, L506.1001, L100.0100 #### [facility] [address] [place], [address] Nucleated RBC (Bld) [#/Vol] 0 10*3/uL Normal 0-5 [facility] Comment on above: Order Comment: AYSHA Vargas SEND CBCD RESULTS TO DR. ROSS ALSO Performed By: #### L 500.4050, L506.0400, L501.9520, L506.1001, L100.0100 #### [facility] [address] [place], [address] RDW SD 42.0 fl Normal 35.1-43.9 [facility] Comment on above: Order Comment: AYSHA Vargas SEND CBCD RESULTS TO DR. ROSS ALSO Performed By: #### L 500.4050, L506.0400, L501.9520, L506.1001, L100.0100 #### [facility] [address] [place], [address] Absolute Neut Normal 2.0-7.7 [facility] Comment on above: Result Comment: ON O THER ORDER Performed By: #### L 100.0100 ####[facility] [address] [place], [address] HCT Normal 37-47 [facility] Comment on above: Result Comment: ON O THER ORDER Performed By: #### L 100.0100 ####[facility] [address] [place], [address] HGB Normal 12.0-15.0 [facility] Comment on above: Result Comment: ON O THER ORDER Performed By: #### L 100.0100 ####[facility] [address] [place], [address] MCH Normal 27.0-32.0 [facility] Comment on above: Result Comment: ON O THER ORDER Performed By: #### L 100.0100 ####[facility] [address] [place], [address] MCHC Normal 32-36 [facility] Comment on above: Result Comment: ON O THER ORDER Performed By: #### L 100.0100 ####[facility] [address] [place], [address] MCV Normal 81-99 [facility] Comment on above: Result Comment: ON O THER ORDER Performed By: #### L 100.0100 ####[facility] [address] [place], [address] NEUT% Normal 47-70 [facility] Comment on above: Result Comment: ON O THER ORDER Performed By: #### L 100.0100 ####[facility] [address] [place], [address] PLT Normal 150-450 [facility] Comment on above: Result Comment: ON O THER ORDER Performed By: #### L 100.0100 ####[facility] [address] [place], [address] RBC Normal 4.2-5.4 [facility] Comment on above: Result Comment: ON O THER ORDER Performed By: #### L 100.0100 ####[facility] [address] [place], [address] RDW CV Normal 11.6-14.6 [facility] Comment on above: Result Comment: ON O THER ORDER Performed By: #### L 100.0100 ####[facility] [address] [place], [address] RDW SD Normal 35.1-43.9 [facility] Comment on above: Result Comment: ON O THER ORDER Performed By: #### L 100.0100 ####[facility] [address] [place], [address] WBC Normal 4.4-11.0 [facility] Comment on above: Result Comment: ON O THER ORDER Performed By: #### L 100.0100 ####[facility] [address] [place], [address] Carbon dioxide, total [Moles /volume] in Central venous bloodOrdered By: Soo Ladd on 11-04-2024 CO2 [Moles/Vol] 24.2 mmol/L 21.0-32.0 [facility] Chloride assayOrdered By: Kiesha Ladd on 11-04-2024 Chloride [Moles/Vol] 106 mmol/L 98-108 [facility] Comprehensive Metabolic Prof ilon 11-04-2024 Albumin [Mass/Vol] 4.3 g/dL Normal 3.4-4.8 [facility] Comment on above: Performed By: #### L 500.4050, L506.0400, L501.9520, L506.1001, L100.0100 #### [facility] [address] [place], [address] Albumin/Globulin [Mass ratio] 1.4 {ratio} Normal 0.9-2.4 [facility] Comment on above: Performed By: #### L 500.4050, L506.0400, L501.9520, L506.1001, L100.0100 #### [facility] [address] [place], [address] ALK PHOS 71 U/L Normal 35-104 [facility] Comment on above: Performed By: #### L 500.4050, L506.0400, L501.9520, L506.1001, L100.0100 #### [facility] [address] [place], [address] ALT [Catalytic activity/Vol] 16 U/L Normal <=34 [facility] Comment on above: Performed By: #### L 500.4050, L506.0400, L501.9520, L506.1001, L100.0100 #### [facility] [address] [place], [address] AST [Catalytic activity/Vol] 22 U/L Normal <=31 [facility] Comment on above: Performed By: #### L 500.4050, L506.0400, L501.9520, L506.1001, L100.0100 #### [facility] [address] [place], [address] Bilirubin [Mass/Vol] 0.36 mg/dL Normal 0.00-1.30 [facility] Comment on above: Performed By: #### L 500.4050, L506.0400, L501.9520, L506.1001, L100.0100 #### [facility] [address] [place], [address] BUN/CRE 23.9 RATIO High 10-20 [facility] Comment on above: Performed By: #### L 500.4050, L506.0400, L501.9520, L506.1001, L100.0100 #### [facility] [address] [place], [address] Calcium [Mass/Vol] 9.3 mg/dL Normal 7.6-11.0 [facility] Comment on above: Performed By: #### L 500.4050, L506.0400, L501.9520, L506.1001, L100.0100 #### [facility] [address] [place], [address] Chloride [Moles/Vol] 106 mmol/L Normal 98-108 [facility] Comment on above: Performed By: #### L 500.4050, L506.0400, L501.9520, L506.1001, L100.0100 #### [facility] [address] [place], [address] CO2 [Moles/Vol] 24.2 mmol/L Normal 21.0-32.0 [facility] Comment on above: Performed By: #### L 500.4050, L506.0400, L501.9520, L506.1001, L100.0100 #### [facility] [address] [place], [address] Creatinine [Mass/Vol] 0.69 mg/dL Low 0.70-1.20 [facility] Comment on above: Performed By: #### L 500.4050, L506.0400, L501.9520, L506.1001, L100.0100 #### [facility] [address] [place], [address] GAP 11 Normal 5-15 [facility] Comment on above: Performed By: #### L 500.4050, L506.0400, L501.9520, L506.1001, L100.0100 #### [facility] [address] [place], [address] GFR/1.73 sq M.predicted among non-blacks MDRD (S/P/Bld) [Vol rate/Area] 94 mL/min/{1.73_m2} Normal >60 [facility] Comment on above: Result Comment: mL/m in/1.73m2 CKD-EPI Creatinine Equation (2020) Performed By: #### L 500.4050, L506.0400, L501.9520, L506.1001, L100.0100 #### [facility] [address] [place], [address] Globulin (S) [Mass/Vol] 3.0 g/dL Normal 2.2-4.2 [facility] Comment on above: Performed By: #### L 500.4050, L506.0400, L501.9520, L506.1001, L100.0100 #### [facility] [address] [place], [address] Glucose [Mass/Vol] 108 mg/dL High 70-99 [facility] Comment on above: Performed By: #### L 500.4050, L506.0400, L501.9520, L506.1001, L100.0100 #### [facility] [address] [place], [address] Potassium [Moles/Vol] 3.8 mmol/L Normal 3.3-5.1 [facility] Comment on above: Result Comment: Hemo lysis present, Results??could be affected. ?? Performed By: #### L 500.4050, L506.0400, L501.9520, L506.1001, L100.0100 #### [facility] [address] [place], [address] Sodium [Moles/Vol] 141 mmol/L Normal 133-145 [facility] Comment on above: Performed By: #### L 500.4050, L506.0400, L501.9520, L506.1001, L100.0100 #### [facility] [address] [place], [address] T PROT 7.3 g/dL Normal 5.9-8.4 [facility] Comment on above: Performed By: #### L 500.4050, L506.0400, L501.9520, L506.1001, L100.0100 #### [facility] [address] [place], [address] Urea nitrogen [Mass/Vol] 17 mg/dL Normal 4-19 [facility] Comment on above: Performed By: #### L 500.4050, L506.0400, L501.9520, L506.1001, L100.0100 #### [facility] [address] [place], [address] Eosinophil percentageOrdered By: Soo Ladd on 11-04-2024 Eosinophils/100 WBC (Bld) 3.2 % Normal 0-5 [facility] Comment on above: Order Comment: AYSHA Vargas SEND CBCD RESULTS TO DR. ROSS ALSO Performed By: #### L 500.4050, L506.0400, L501.9520, L506.1001, L100.0100 #### [facility] [address] [place], [place], [address] Erythrocyte distribution wid th ratioOrdered By: Soo Ladd on 11-04-2024 Erythrocyte distribution width (RBC) [Ratio] 12.1 % Normal 11.6-14.6 [facility] Comment on above: Order Comment: AYSHA Vargas SEND CBCD RESULTS TO DR. ROSS ALSO Performed By: #### L 500.4050, L506.0400, L501.9520, L506.1001, L100.0100 #### [facility] [address] [place], [place], [address] Erythrocyte distribution wid th standard deviationOrdered By: Soo Ladd on 11-04-2024 Erythrocyte distribution width (RBC) [Ratio] 42.0 fl 35.1-43.9 [facility] Glomerular filtration rate ( GFR) estimation/1.73 sq m using serum, plasma, or whole bOrdered By: Soo Ladd on 11-04-2024 GFR/1.73 sq M.predicted among non-blacks MDRD (S/P/Bld) [Vol rate/Area] 94 mL/min/{1.73_m2} >60 [facility] Comment on above: mL/min/1.73m2 CKD-EP I Creatinine Equation (2020) Hemoglobin measurementOrdere d By: Soo Ladd on 11-04-2024 Hemoglobin (Bld) [Mass/Vol] 14.5 g/dL Normal 12.0-15.0 [facility] Comment on above: Order Comment: AYSHA Vargas SEND CBCD RESULTS TO DR. ROSS ALSO Performed By: #### L 500.4050, L506.0400, L501.9520, L506.1001, L100.0100 #### [facility] Laboratory [address] [place], [address] Immature granulocytes/100 WB C Auto (Bld)Ordered By: Soo Ladd on 11-04-2024 Immature granulocytes/100 WBC (Bld) 0.300 % 0.0-0.9 [facility] Comment on above: IG% - Immature Granu locytes (promyelocytes, myelocytes and metamyelocytes) > 1% indicates that a LEFT SHIFT is Present. Laboratory - Chemistry and C hemistry - challengeOrdered By: Soo Ladd on 11-04-2024 AST [Catalytic activity/Vol] 22 U/L <32 [facility] MCV (mean corpuscular volume ) determinationOrdered By: Soo Ladd on 11-04-2024 MCV (RBC) [Entitic vol] 94.6 fL Normal 81-99 [facility] Comment on above: Order Comment: AYSHA Vargas SEND CBCD RESULTS TO DR. ROSS ALSO Performed By: #### L 500.4050, L506.0400, L501.9520, L506.1001, L100.0100 #### [facility] Laboratory [address] [place], [address] Mean corpuscular hemoglobin (MCH) determinationOrdered By: Soo Ladd on 11-04-2024 MCH (RBC) [Entitic mass] 31.5 pg Normal 27.0-32.0 [facility] Comment on above: Order Comment: AYSHA Vargas SEND CBCD RESULTS TO DR. ROSS ALSO Performed By: #### L 500.4050, L506.0400, L501.9520, L506.1001, L100.0100 #### [facility] [address] [place], [address] Mean corpuscular hemoglobin concentration (MCHC) determinationOrdered By: Soo Ladd on 11-04-2024 MCHC (RBC) [Mass/Vol] 33.3 g/dL Normal 32-36 [facility] Comment on above: Order Comment: AYSHA Vargas SEND CBCD RESULTS TO DR. ROSS ALSO Performed By: #### L 500.4050, L506.0400, L501.9520, L506.1001, L100.0100 #### [facility] [address] [place], [address] Mean platelet volume determi nationOrdered By: Soo Ladd on 11-04-2024 Platelet mean volume (Bld) [Entitic vol] 11.7 fL Normal 6.2-12.0 [facility] Comment on above: Order Comment: AYSHA Vargas SEND CBCD RESULTS TO DR. ROSS ALSO Performed By: #### L 500.4050, L506.0400, L501.9520, L506.1001, L100.0100 #### [facility] Laboratory [address] [place], [address] Monocyte percentageOrdered B y: Soo Ladd on 11-04-2024 Monocytes/100 WBC (Bld) 4.7 % Normal 0-10 [facility] Comment on above: Order Comment: AYSHA Vargas SEND CBCD RESULTS TO DR. ROSS ALSO Performed By: #### L 500.4050, L506.0400, L501.9520, L506.1001, L100.0100 #### [facility] [address] [place], [address] Neutrophil percentageOrdered By: Soo Ladd on 11-04-2024 Neutrophils/100 WBC (Bld) 62.6 % Normal 47-70 [facility] Comment on above: Order Comment: AYSHA Vargas SEND CBCD RESULTS TO DR. ROSS ALSO Performed By: #### L 500.4050, L506.0400, L501.9520, L506.1001, L100.0100 #### [facility] Laboratory [address] [place], [address] Nucleated red blood cell per centageOrdered By: Soo Ladd on 11-04-2024 Nucleated RBC/100 WBC (Bld) [Ratio] 0 % 0-5 [facility] Platelet countOrdered By: Kiesha Ladd on 11-04-2024 Platelets (Bld) [#/Vol] 227 10*3/uL Normal 150-450 [facility] Comment on above: Order Comment: AYSHA Vargas SEND CBCD RESULTS TO DR. ROSS ALSO Performed By: #### L 500.4050, L506.0400, L501.9520, L506.1001, L100.0100 #### [facility] [address] [place], [address] Potassium measurement (mass/ volume)Ordered By: Soo Ladd on 11-04-2024 Potassium (Unsp spec) [Mass/Vol] 3.8 mmol/L 3.3-5.1 [facility] Comment on above: Hemolysis present, R esults could be affected. Serum creatinine measurement (mass/volume)Ordered By: Soo Ladd on 11-04-2024 Creatinine [Mass/Vol] 0.69 mg/dL Low 0.70-1.20 [facility] Serum globulin measurementOr dered By: Soo Ladd on 11-04-2024 Globulin (S) [Mass/Vol] 3.0 g/dL 2.2-4.2 [facility] Serum glucose measurement (m ass/volume)Ordered By: Soo Ladd on 11-04-2024 Glucose [Mass/Vol] 108 mg/dL High 70-99 [facility] Serum or plasma alanine win otransferase (ALT) measurementOrdered By: Soo Ladd on 11-04-2024 ALT [Catalytic activity/Vol] 16 U/L <35 [facility] Serum or plasma albumin mary ann urement (mass/volume)Ordered By: Soo Ladd on 11-04-2024 Albumin [Mass/Vol] 4.3 g/dL 3.4-4.8 [facility] Serum or plasma albumin/glob ulin mass ratioOrdered By: Soo Ladd on 11-04-2024 Albumin/Globulin [Mass ratio] 1.4 {ratio} 0.9-2.4 [facility] Serum or plasma alkaline yuliya sphatase measurementOrdered By: Soo Ladd on 11-04-2024 ALP [Catalytic activity/Vol] 71 U/L 35-104 [facility] Serum or plasma calcium mary ann urement (mass/volume)Ordered By: Soo Ladd on 11-04-2024 Calcium [Mass/Vol] 9.3 mg/dL 7.6-11.0 [facility] Serum or plasma urea nitroge n measurement (mass/volume)Ordered By: Soo Ladd on 11-04-2024 Urea nitrogen [Mass/Vol] 17 mg/dL 4-19 [facility] Sodium levelOrdered By: Jesus cintronashu Wilberto on 11-04-2024 Sodium [Moles/Vol] 141 mmol/L 133-145 [facility] T4 Free Directon 11-04-2024 T4 FREE DIRECT 0.90 ng/dL Normal 0.76-1.46 [facility] Comment on above: Performed By: #### L 500.4050, L506.0400, L501.9520, L506.1001, L100.0100 #### [facility] Laboratory [address] [place], [place] [address], [place], [id number] T4 freeOrdered By: Soo Ladd on 11-04-2024 Free T4 [Mass/Vol] 0.90 ng/dL 0.76-1.46 [facility] TSH DL <= 0.005 mIU/L QnOrde red By: Soo Ladd on 11-04-2024 TSH Qn 1.020 uIU/mL 0.300-4.200 [facility] Thyroid Stim Hormone (TSH)on 11-04-2024 TSH 1.020 uIU/mL Normal 0.300-4.200 [facility] Comment on above: Performed By: #### L 500.4050, L506.0400, L501.9520, L506.1001, L100.0100 #### [facility] Laboratory [address] [place], [address] Total proteinOrdered By: Donavan aydenalicia Ladd on 11-04-2024 Protein [Mass/Vol] 7.3 g/dL 5.9-8.4 [facility] Vitamin D,25 Hydroxyon 11-04 Vitamin D 25-OH 48.8 ng/mL Normal 30-100 [facility] Comment on above: Result Comment: Domi min D Status Deficiency: <20 ng/mL (50nmol/L) Insufficiency: 20-30 ng/mL (50-75 nmol/L) Sufficiency: 30-100 ng/mL (75-250 nmol/L) Toxicity: >100 ng/mL (>250 nmol/L) Performed By: #### L 500.4050, L506.0400, L501.9520, L506.1001, L100.0100 #### [facility] [address] [place], [address] White blood cell (WBC) count Ordered By: Soo Ladd on 11-04-2024 WBC (Bld) [#/Vol] 9.7 10*3/uL Normal 4.4-11.0 [facility] Comment on above: Order Comment: AYSHA Vargas SEND CBCD RESULTS TO DR. ROSS ALSO Performed By: #### L 500.4050, L506.0400, L501.9520, L506.1001, L100.0100 #### [facility] [address] [place], [address] Internal Medicine Office Vis tamia 11-01-2024 Internal Medicine Office Visit [facility] [address] [place] [address] [place] [address] OFFICE VISIT Date of Service: 11/01/24 MR#: [id number] Acct: [id number] Name: YVONNE LOMELI Rep #: [id number] : 1955 Provider: JORDYN Gardner Age/Sex: 69/F Location: [facility] Status: Signed Intake Vital Signs 10/21/24 08:45 11/01/24 15:37 Height 5 ft 5 ft Weight: 148 lb BMI 28.9 BP 138/76 H Blood Pressure Location Lt brachial Position Sitting Respiration 18 Pulse 77 Pulse Source Monitor Temp 97.8 F Temp Source Temporal Pulse Oximetry (%) 97 Oxygen Delivery Method room air Intake Visit Reasons: ACUTE [facility] FU Chief Complaint: ACUTE [facility] FU Is patient in pain?: No Allergies phentolamine (From Regitine) Allergy (Verified 11/01/24 15:30) Hives amoxicillin Adverse Reaction (Verified 11/01/24 15:30) YEAST INFECTION Medications ???Medication ???Instructions ???Recorded ???Confirmed ???Type tizanidine 4 mg tablet 4 mg PO QHS spasms 10/15/18 History cyclosporine 0.05 % eye drops in a 1 drp EACH EYE BID dry eyes 10/2811/01/24 History dropperette (Restasis) bisi oil 25 mg-levomenthol 1 cap PO QHS 05/02/22 11/01/24 His tory 20.75 mg capsule (FDgard) ascorbic acid (vitamin C) 500 mg 500 mg PO DAILY 07/29/22 11/01/24 History tablet L. acidophilus 5 mg-digestive 1 cap PO BID colon 09/07/22 History enzymes combo no.5 250 mg capsule (Probiotic-Digestive Enzymes) compress.stocking,knee,r eg,lrg #2 ea 09/07/22 11/01/24 Rx turmeric 400 mg capsule 400 mg PO DAILY 10/03/22 11/01/24 History compress.stocking,knee,r eg,lrg #2 ea 11/28/22 11/01/24 Rx ascorbic acid 125 mg-collagen, 1 cap PO DAILY 12/12/22 11/01/24 H istory hydrolyzed 740 mg capsule (Collagen Plus Vitamin C) sennosides 8.6 mg tablet (Senna 8.6 mg PO DAILY PRN constipation 1 11/01/24 History Laxative) tramadol 50 mg tablet 50 mg PO QHS pain 12/12/22 5 History fluorometholone 0.1 % eye 1 drp ophthalmic (eye) DAILY PRN 0 09/08/23 11/01/24 History drops,suspension eyes azelastine 137 mcg (0.1 %) nasal 2 spray intranasal DAILY PRN nasal 01/15/24 11/01/24 Rx spray congestion #30 mL buspirone 15 mg tablet 15 mg PO PRN PRN Anxiety #90 tabs 01/15/24 11/01/24 Rx cholecalciferol (vitamin D3) 25 2,000 unit PO DAILY Check with 11/01/24 History mcg (1,000 unit) tablet primary doctor vitamin k PO 01/15/24 11/01/24 History ipratropium bromide 21 mcg (0.03 2 spray intranasal BID-TID PRN 01/2111/01/24 Rx %) nasal spray postnasal drainage #30 mL pantoprazole 40 mg tablet,delayed 40 mg PO DAILY #90 tabs 08/13/24 11/01/24 Rx release hydrocortisone 2.5 % topical cream 1 applic topical BID PRN rash #2 8 10/03/24 11/01/24 Rx grams fluconazole 150 mg tablet 150 mg PO DAILY 1 dose #1 TAB 09/2811/01/24 Rx bisacodyl 5 mg tablet,delayed 5 mg PO ONCE PRN 11/01/24 11/01/24 History release (Dulcolax (bisacodyl)) cyanocobalamin (vitamin B-12) 2,500 mcg PO DAILY 11/01/24 History 1,000 mcg capsule simethicone 125 mg capsule 125 mg PO ONCE PRN 11/01/24 History Have you fallen in the past year?: Yes (x1) Nurse's Note: pt reports that she was seen at [facility] ER on Monday for ABD pain pt states that she was told she had colitis. pt states that prior to the ER visit, she took sennakot and dulcolax to prevent constipation prior to a long trip she was having. [facility] Medical History Change in skin mole Fatigue Lumbar radiculopathy Chronic cough Dry mouth Osteopenia with high risk of fracture Sinusitis RLQ abdominal pain Bite from insect Pain Hypertension Venous insufficiency of both lower extremities Urinary incontinence Chronic back pain Anxiety and depression Obesity (BMI 30-39.9) Impacted cerumen, right ear URI (upper respiratory infection) History of Clostridium difficile infection Fatty liver History of edema Health care maintenance Osteopenia Constipation Gastroparesis Chronic pain Therapeutic opioid induced constipation Narcotic bowel syndrome Lab test negative for COVID-19 virus Osteoarthritis of right hip Preoperative clearance Wears glasses Post-menopausal Bladder disease Back pain Arthritis History of hiatal hernia History of IBS History of diverticulitis Gastric reflux Non-smoker History of pain when walking History of stress test Dysphagia Hiatal hernia GERD (gastroesophageal reflux disease) Back problem Dermatitis Trochanteric bursitis of right hip Right hip pain Preventative health care Anxiety Anxiety Depression Thoracic stomach hernia Fibromyalgia Degenerated intervertebral disc Vitamin deficiency IBS (irr (more content not included)... Normal [facility] Abdomen/Pelvis W IV Cont ONL Yon 10-21-2024 Abdomen/Pelvis W IV Cont ONLY [facility] Imaging Services [address] [place] [id number] Abdomen/Pelvis W IV Cont ONLY MR#: [id number] Acct: [id number] Name: YVONNE LOMELI Rep #: [id number] : 1955 F 69 From: Tae aguilar MD PCP: Dr. Soo Ladd MD Status: REG ER Study: Abdomen/Pelvis W IV Cont ONLY Date of Exam: Exam# [id number] Ordering Dr: Marcos Valenzuela DO PROCEDURE: ABDOMEN/PELVIS W IV CONT ONLY 10/21/2024 REASON FOR EXAM: ABDOMINAL PAIN Left-sided abdominal pain and nausea. TECHNIQUE: ABDOMEN/PELVIS W IV CONT ONLY Coronal and Sagittal reconstruction series were provided. CONTRAST: Isovue 370 VOLUME: 100 mL One or more dose reduction techniques were used (e.g., Automated exposure control, adjustment of the mA and/or kV according to patient size, use of iterative reconstruction technique. RADIATION DOSE SUMMARY: CTDlvol: 14.9 mGy DLP: 811.99 mGycm COMPARISON: Prior study dated August 01, 2024. FINDINGS: Lung bases: Mild degree of dependent bibasilar atelectasis. Liver: Normal size. No mass. Gallbladder: Surgically absent. Spleen: Normal size. Pancreas: Normal size without evidence of mass surrounding inflammation or ductal dilation. Adrenals: Unremarkable Kidneys: Unremarkable Bladder: Unremarkable Reproductive Organs: Unremarkable Bowel: Circumferential wall thickening and increased markings in the surrounding peritoneal fat involving the splenic flexure and descending colon. Colitis should be ruled out. Sigmoid diverticulosis. Appendix: The appendix is not identified. There is no inflammatory process identified in the right lower quadrant to suggest appendicitis. Lymph nodes: Unremarkable. Vasculature: Mild diffuse atherosclerotic calcifications are noted. Peritoneum / Retroperitoneum: Unremarkable Bones: Minimal anterior listhesis of L4 on L5 due to facet joint osteoarthritis. Status post right total hip replacement. CT/Abdomen/Pelvis W IV Cont ONLY IMPRESSION: Findings suggestive of colitis of the splenic flexure and descending colon. Status post cholecystectomy. Stable grade 1 anterior listhesis of L4 on L5. Reading Location: [id number] CC: Dr. Soo Ladd MD; Dr. Marcos Valenzuela DO Market Specialist: Signed Normal [facility] Absolute lymphocyte countOrd ered By: Marcos Valenzuela on 10-21-2024 Lymphocytes Auto (Unsp spec) [#/Vol] 1.94 10*3/uL 0.83-4.51 [facility] Absolute neutrophil countOrd ered By: Marcos Valenzuela on 10-21-2024 Neutrophils (Bld) [#/Vol] 10.9 10*3/uL High 2.0-7.7 [facility] Anion gap in Serum or Plasma Ordered By: Marcos Valenzuela on 10-21-2024 Anion gap [Moles/Vol] 14 mmol/L 5-15 [facility] Automated lymphocyte count a s percentage of total leukocytesOrdered By: Marcos Valenzuela on 10-21-2024 Lymphocytes/100 WBC Auto (Unsp spec) 13.7 % Low 19-41 [facility] BUN/creatinine ratioOrdered By: Marcos Valenzuela on 10-21-2024 Urea nitrogen/Creatinine [Mass ratio] 23.3 mg/mg High 10-20 [facility] Basophil percentageOrdered B y: Marcos Valenzuela on 10-21-2024 Basophils/100 WBC (Bld) 0.6 % 0-1 [facility] Bilirubin Test strip Ql (U)O rdered By: Marcos Valenzuela on 10-21-2024 Bilirubin Ql (U) Negative Negative [facility] Bilirubin, totalOrdered By: Marcos Valenzuela on 10-21-2024 Bilirubin [Mass/Vol] 0.55 mg/dL 0.00-1.30 [facility] Blood manual differential co mment interpretation (narrative result)Ordered By: Marcos Valenzuela on 10-21-2024 Manual differential comment Ad (Bld) [Interp] SCANNED [facility] CBC W/Diff, Automatedon 09-28 SMEAR COMMENT SCANNED Normal [facility] Comment on above: Performed By: #### L 500.4050, L501.2450, L100.0100 ####[facility] [address] [place], [address] Carbon dioxide, total [Moles /volume] in Central venous bloodOrdered By: Marcos Valenzuela on 10-21-2024 CO2 [Moles/Vol] 22.6 mmol/L 21.0-32.0 [facility] Chloride assayOrdered By: Enzo Valenzuela on 10-21-2024 Chloride [Moles/Vol] 103 mmol/L 98-108 [facility] Comprehensive Metabolic Prof ilon 10-21-2024 Albumin [Mass/Vol] 4.2 g/dL Normal 3.4-4.8 [facility] Comment on above: Performed By: #### L 500.4050, L501.2450, L100.0100 ####[facility] [address] [place], [address] Albumin/Globulin [Mass ratio] 1.3 {ratio} Normal 0.9-2.4 [facility] Comment on above: Performed By: #### L 500.4050, L501.2450, L100.0100 ####[facility] [address] [place], [address] ALK PHOS 75 U/L Normal 35-104 [facility] Comment on above: Performed By: #### L 500.4050, L501.2450, L100.0100 ####[facility] [address] [place], [address] ALT [Catalytic activity/Vol] 20 U/L Normal <=34 [facility] Comment on above: Performed By: #### L 500.4050, L501.2450, L100.0100 ####[facility] [address] [place], [address] AST [Catalytic activity/Vol] 22 U/L Normal <=31 [facility] Comment on above: Performed By: #### L 500.4050, L501.2450, L100.0100 ####[facility] [address] [place], [address] Bilirubin [Mass/Vol] 0.55 mg/dL Normal 0.00-1.30 [facility] Comment on above: Performed By: #### L 500.4050, L501.2450, L100.0100 ####[facility] [address] [place], [address] BUN/CRE 23.3 RATIO High 10-20 [facility] Comment on above: Performed By: #### L 500.4050, L501.2450, L100.0100 ####[facility] [address] [place], [address] Calcium [Mass/Vol] 9.3 mg/dL Normal 7.6-11.0 [facility] Comment on above: Performed By: #### L 500.4050, L501.2450, L100.0100 ####[facility] [address] [place], [address] Chloride [Moles/Vol] 103 mmol/L Normal 98-108 [facility] Comment on above: Performed By: #### L 500.4050, L501.2450, L100.0100 ####[facility] [address] [place], [address] CO2 [Moles/Vol] 22.6 mmol/L Normal 21.0-32.0 [facility] Comment on above: Performed By: #### L 500.4050, L501.2450, L100.0100 ####[facility] [address] [place], [address] Creatinine [Mass/Vol] 0.68 mg/dL Low 0.70-1.20 [facility] Comment on above: Performed By: #### L 500.4050, L501.2450, L100.0100 ####[facility] [address] [place], [address] ECRCL 58.83 ml/min Normal 50-250 [facility] Comment on above: Performed By: #### L 500.4050, L501.2450, L100.0100 ####[facility] [address] [place], [address] GAP 14 Normal 5-15 [facility] Comment on above: Performed By: #### L 500.4050, L501.2450, L100.0100 ####[facility] [address] [place], [address] GFR/1.73 sq M.predicted among non-blacks MDRD (S/P/Bld) [Vol rate/Area] 94 mL/min/{1.73_m2} Normal >60 [facility] Comment on above: Result Comment: mL/m in/1.73m2 CKD-EPI Creatinine Equation (2020) Performed By: #### L 500.4050, L501.2450, L100.0100 ####[facility] [address] [place], [address] Globulin (S) [Mass/Vol] 3.4 g/dL Normal 2.2-4.2 [facility] Comment on above: Performed By: #### L 500.4050, L501.2450, L100.0100 ####[facility] [address] [place], [address] Glucose [Mass/Vol] 134 mg/dL High 70-99 [facility] Comment on above: Performed By: #### L 500.4050, L501.2450, L100.0100 ####[facility] [address] [place], [address] Potassium [Moles/Vol] 3.2 mmol/L Low 3.3-5.1 [facility] Comment on above: Performed By: #### L 500.4050, L501.2450, L100.0100 ####[facility] [address] [place], [address] Sodium [Moles/Vol] 140 mmol/L Normal 133-145 [facility] Comment on above: Performed By: #### L 500.4050, L501.2450, L100.0100 ####[facility] [address] [place], [address] T PROT 7.6 g/dL Normal 5.9-8.4 [facility] Comment on above: Performed By: #### L 500.4050, L501.2450, L100.0100 ####[facility] [address] [place], [address] Urea nitrogen [Mass/Vol] 16 mg/dL Normal 4-19 [facility] Comment on above: Performed By: #### L 500.4050, L501.2450, L100.0100 ####[facility] [address] [place], [address] Emergency Department Summary on 10-21-2024 Emergency Department Summary [facility] Medical Records Department [address] [place] [address] Emergency Department Summary 10/21/24 MR#: [id number] Acct: [id number] Name: YVONNE LOMELI Rep #: [id number] : 1955 69 From: Marcos Valenzuela DO PCP: Dr. Soo Ladd MD Status:DEP ER Location: ED HPI HPI - GI History of Present Illness Chief Complaint: Abd Pain Informant: patient Abdominal Pain/Flank Pain Onset: Yesterday Context: Gradual Onset Timing: Continuous Location: LUQ and LLQ Worsened by: Nothing Relieved by: - (Bending forward) Nausea/Vomiting/Emesis GI Symptom: Positive for Nausea; Negative for Vomiting Diarrhea/Melena/Hematoch ezia GI Symptom: Negative for Diarrhea, Melena or Hematochezia Associated Symptoms Associated Symptoms: Positive for Frequency; Negative for Dysuria or Hematuria Narrative Narrative: Patient presents with left lower abdominal pain that began yesterday. Patient states it is gradually getting worse. Patient describes it as cramping and sharp. Patient states it is mainly o n the left side of her abdomen. Patient states nothing makes it worse. Patient states it did get better with bending forward and with taking analgesic medication last night. Patient admits to some nausea but denies any vomiting. Patient denies any diarrhea, melena, or hematochezia. Patient denies any dysuria or hematuria. [facility] Medical History Change in skin mole Fatigue Lumbar radiculopathy Chronic cough Dry mouth Osteopenia with high risk of fracture Sinusitis RLQ abdominal pain Bite from insect Pain Hypertension Venous insufficiency of both lower extremities Urinary incontinence Chronic back pain Anxiety and depression Obesity (BMI 30-39.9) Impacted cerumen, right ear URI (upper respiratory infection) History of Clostridium difficile infection Fatty liver History of edema Health care maintenance Osteopenia Constipation Gastroparesis Chronic pain Therapeutic opioid induced constipation Narcotic bowel syndrome Lab test negative for COVID-19 virus Osteoarthritis of right hip Preoperative clearance Wears glasses Post-menopausal Bladder disease Back pain Arthritis History of hiatal hernia History of IBS History of diverticulitis Gastric reflux Non-smoker History of pain when walking History of stress test Dysphagia Hiatal hernia GERD (gastroesophageal reflux disease) Back problem Dermatitis Trochanteric bursitis of right hip Right hip pain Preventative health care Anxiety Anxiety Depression Thoracic stomach hernia Fibromyalgia Degenerated intervertebral disc Vitamin deficiency IBS (irritable bowel syndrome) Diverticulitis H/O emotional problems Carpal tunnel syndrome Arthritis Allergies Home Medications ???Medication ???Instructions ???Recorded ???Last Taken ???Type tizanidine 4 mg tablet 4 mg PO QHS spasms 10/15/18 History cyclosporine 0.05 % eye drops in a 1 drp EACH EYE BID dry eyes 10/2810/20/24 History dropperette (Restasis) bisi oil 25 mg-levomenthol 1 cap PO QHS 05/02/22 10/20/24 His tory 20.75 mg capsule (FDgard) cyanocobalamin (vitamin B-12) 1,000 mcg PO DAILY 05/02/22 History 1,000 mcg capsule ascorbic acid (vitamin C) 500 mg 500 mg PO DAILY 07/29/22 10/20/24 History tablet L. acidophilus 5 mg-digestive 1 cap PO BID colon 09/07/22 History enzymes combo no.5 250 mg capsule (Probiotic-Digestive Enzymes) compress.stocking,knee,r eg,lrg #2 ea 09/07/22 Unknown Rx turmeric 400 mg capsule 400 mg PO DAILY 10/03/22 10/20/24 History compress.stocking,knee,r eg,lrg #2 ea 11/28/22 Unknown Rx ascorbic acid 125 mg-collagen, 1 cap PO DAILY 12/12/22 10/20/24 H istory hydrolyzed 740 mg capsule (Collagen Plus Vitamin C) sennosides 8.6 mg tablet (Senna 8.6 mg PO DAILY PRN constipation 1 Unknown History Laxative) tramadol 50 mg tablet 50 mg PO QHS pain 12/12/22 5 History fluorometholone 0.1 % eye 1 drp ophthalmic (eye) DAILY PRN 0 09/08/23 10/20/24 History drops,suspension eyes azelastine 137 mcg (0.1 %) nasal 2 spray intranasal DAILY PRN nasal 01/15/24 Unknown Rx spray congestion #30 mL buspirone 15 mg tablet 15 mg PO PRN PRN Anxiety #90 tabs 01/15/24 Unknown Rx cholecalciferol (vitamin D3) 25 2,000 unit PO DAILY Check with 10/20/24 History mcg (1,000 unit) tablet primary doctor vitamin k PO 01/15/24 10/20/24 History ipratropium bromide 21 mcg (0.03 2 spray intranasal BID-TID PRN 01/21 Unknown Rx %) nasal spray postnasal drainage #30 mL pantoprazole 40 mg tablet,delayed 40 mg PO DAILY #90 tabs 08/13/24 10/20/24 Rx release hydrocortisone 2.5 % topical cream 1 applic topical BID PRN rash #2 (more content not included)... Normal [facility] Eosinophil percentageOrdered By: Marcos Valenzuela on 10-21-2024 Eosinophils/100 WBC (Bld) 1.1 % 0-5 [facility] Erythrocyte distribution wid th ratioOrdered By: Marcos Valenzuela on 10-21-2024 Erythrocyte distribution width (RBC) [Ratio] 12.2 % 11.6-14.6 [facility] Erythrocyte distribution wid th standard deviationOrdered By: Marcos Valenzuela on 10-21-2024 Erythrocyte distribution width (RBC) [Ratio] 41.6 fl 35.1-43.9 [facility] Glomerular filtration rate ( GFR) estimation/1.73 sq m using serum, plasma, or whole bOrdered By: Marcos Valenzuela on 10-21-2024 GFR/1.73 sq M.predicted among non-blacks MDRD (S/P/Bld) [Vol rate/Area] 94 mL/min/{1.73_m2} >60 [facility] Comment on above: mL/min/1.73m2 CKD-EP I Creatinine Equation (2020) Hematocrit Auto (Bld) [Volum e fraction]Ordered By: Marcos Valenzuela on 10-21-2024 Hematocrit (Bld) [Volume fraction] 43.2 % 37-47 [facility] Hemoglobin measurementOrdere d By: Marcos Valenzuela on 10-21-2024 Hemoglobin (Bld) [Mass/Vol] 14.9 g/dL 12.0-15.0 [facility] Immature granulocytes/100 WB C Auto (Bld)Ordered By: Marcos Valenzuela on 10-21-2024 Immature granulocytes/100 WBC (Bld) 0.400 % 0.0-0.9 [facility] Comment on above: IG% - Immature Granu locytes (promyelocytes, myelocytes and metamyelocytes) > 1% indicates that a LEFT SHIFT is Present. Ketones Test strip Ql (U)Ord ered By: Marcos Valenzuela on 10-21-2024 Ketones Ql (U) Negative Negative [facility] Laboratory - Chemistry and C hemistry - challengeOrdered By: Marcos Valenzuela on 10-21-2024 AST [Catalytic activity/Vol] 22 U/L <32 [facility] Lipaseon 10-21-2024 Lipase [Catalytic activity/Vol] 16 U/L Normal 13-75 [facility] Comment on above: Result Comment: Estephania maldonado note: LIPASE revised reference range effective 22. New Lipase methodology. Expected to produce lower values than the previous assay method. NEW Reference Range: 13 - 75 U/L Performed By: #### L 500.4050, L501.2450, L100.0100 ####[facility] [id number] [place], [address] Lipase measurementOrdered By : Marcos Valenzuela on 10-21-2024 Lipase [Catalytic activity/Vol] 16 U/L 13-75 [facility] Comment on above: Please note:LIPASE r evised reference range effective 22. New Lipase methodology. Expected to produce lower values than the previous assay method. NEW Reference Range: 13 - 75 U/L MCV (mean corpuscular volume ) determinationOrdered By: Marcos Valenzuela on 10-21-2024 MCV (RBC) [Entitic vol] 92.5 fL 81-99 [facility] Mean corpuscular hemoglobin (MCH) determinationOrdered By: Marcos Valenzuela on 10-21-2024 MCH (RBC) [Entitic mass] 31.9 pg 27.0-32.0 [facility] Mean corpuscular hemoglobin concentration (MCHC) determinationOrdered By: Marcos Valenzuela on 10-21-2024 MCHC (RBC) [Mass/Vol] 34.5 g/dL 32-36 [facility] Mean platelet volume determi nationOrdered By: Marcos Valenzuela on 10-21-2024 Platelet mean volume (Bld) [Entitic vol] 11.4 fL 6.2-12.0 [facility] Microscopic analysis of urin e for red blood cells (RBC)Ordered By: Marcos Valenzuela on 10-21-2024 Microscopic analysis of urine for red blood cells (RBC) 0 SEEN /hpf 0-5 [facility] Monocyte percentageOrdered B y: Marcos Valenzuela on 10-21-2024 Monocytes/100 WBC (Bld) 7.1 % 0-10 [facility] Mucus LM Ql (Urine sed)Order ed By: Marcos Valenzuela on 10-21-2024 Mucus Ql (Urine sed) 0 SEEN /hpf [facility] Neutrophil percentageOrdered By: Marcos Valenzuela on 10-21-2024 Neutrophils/100 WBC (Bld) 77.1 % High 47-70 [facility] Nitrite Test strip Ql (U)Ord ered By: Marcos Valenzuela on 10-21-2024 Nitrite Ql (U) Negative Negative [facility] Nucleated red blood cell per centageOrdered By: Marcos Valenzuela on 10-21-2024 Nucleated RBC/100 WBC (Bld) [Ratio] 0 % 0-5 [facility] Platelet countOrdered By: Enzo Valenzuela on 10-21-2024 Platelets (Bld) [#/Vol] 227 10*3/uL 150-450 [facility] Potassium measurement (mass/ volume)Ordered By: Marcos Valenzuela on 10-21-2024 Potassium (Unsp spec) [Mass/Vol] 3.2 mmol/L Low 3.3-5.1 [facility] Protein Test strip Ql (U)Ord ered By: Marcos Valenzuela on 10-21-2024 Protein Ql (U) 15 mg/dl High Negative [facility] RBC Auto (Bld) [#/Vol]Ordere d By: Marcos Valenzuela on 10-21-2024 RBC (Bld) [#/Vol] 4.67 10*6/uL 4.2-5.4 [facility] Serum creatinine measurement (mass/volume)Ordered By: Marcos Valenzuela on 10-21-2024 Creatinine [Mass/Vol] 0.68 mg/dL Low 0.70-1.20 [facility] Serum globulin measurementOr dered By: Marcos Valenzuela on 10-21-2024 Globulin (S) [Mass/Vol] 3.4 g/dL 2.2-4.2 [facility] Serum glucose measurement (m ass/volume)Ordered By: Marcos Valenzuela on 10-21-2024 Glucose [Mass/Vol] 134 mg/dL High 70-99 [facility] Serum or plasma alanine win otransferase (ALT) measurementOrdered By: Marcos Valenzuela on 10-21-2024 ALT [Catalytic activity/Vol] 20 U/L <35 [facility] Serum or plasma albumin mary ann urement (mass/volume)Ordered By: Marcos Valenzuela on 10-21-2024 Albumin [Mass/Vol] 4.2 g/dL 3.4-4.8 [facility] Serum or plasma albumin/glob ulin mass ratioOrdered By: Marcos Valenzuela on 10-21-2024 Albumin/Globulin [Mass ratio] 1.3 {ratio} 0.9-2.4 [facility] Serum or plasma alkaline yuliya sphatase measurementOrdered By: Marcos Valenzuela on 10-21-2024 ALP [Catalytic activity/Vol] 75 U/L 35-104 [facility] Serum or plasma calcium mary ann urement (mass/volume)Ordered By: Marcos Valenzuela on 10-21-2024 Calcium [Mass/Vol] 9.3 mg/dL 7.6-11.0 [facility] Serum or plasma urea nitroge n measurement (mass/volume)Ordered By: Marcos Valenzuela on 10-21-2024 Urea nitrogen [Mass/Vol] 16 mg/dL 4-19 [facility] Sodium levelOrdered By: Marcos Valenzuela on 10-21-2024 Sodium [Moles/Vol] 140 mmol/L 133-145 [facility] Squamous epithelial cells de tection in urine sediment by light microscopyOrdered By: Marcos Valenzuela on 10-21-2024 Epithelial cells.squamous LM Ql (Urine sed) 0-5 SEEN /hpf 5-10 [facility] Total proteinOrdered By: Christina Valenzuela on 10-21-2024 Protein [Mass/Vol] 7.6 g/dL 5.9-8.4 [facility] Urinalysis, Completeon 10-21 EPI,SQUAMOUS 0-5 SEEN Normal 5-10 [facility] Comment on above: Order Comment: CLEAN CATCH Performed By: #### L 400.0001 #### [facility] Laboratory [address] [place], [address] BACTERIA 0 SEEN Normal None Seen [facility] Comment on above: Order Comment: CLEAN CATCH Performed By: #### L 400.0001 #### [facility] [address] [place], [address] Mucus Ql (Urine sed) 0 SEEN Normal [facility] Comment on above: Order Comment: CLEAN CATCH Performed By: #### L 400.0001 #### [facility] [address] [place], [address] RBC 0 SEEN Normal 0-5 [facility] Comment on above: Order Comment: CLEAN CATCH Performed By: #### L 400.0001 #### [facility] [address] [place], [address] WBC 0 SEEN Normal 0-5 [facility] Comment on above: Order Comment: CLEAN CATCH Performed By: #### L 400.0001 #### [facility] [address] [place], [address] Urine clarityOrdered By: Christina Valenzuela on 10-21-2024 Clarity (U) Clear Clear [facility] Urine color determinationOrd ered By: Marcos Valenzuela on 10-21-2024 Color (U) Yellow Yellow [facility] Urine glucose detectionOrder ed By: Marcos Valenzuela on 10-21-2024 Glucose Ql (U) Normal mg/dl Normal [facility] Urine leukocyte esterase det ection by dipstickOrdered By: Marcos Valenzuela on 10-21-2024 Leukocyte esterase Test strip Ql (U) Negative Negative [facility] Urine pHOrdered By: Marcos quiroga on 10-21-2024 pH (U) 6.5 [pH] 5.0 - 8.0 [facility] Urine sediment bacteria coun t by microscopy (number/high power field)Ordered By: Marcos Valenzuela on 10-21-2024 Bacteria LM.HPF (Urine sed) [#/Area] 0 /[HPF] None Seen [facility] Urine specific gravity measu rementOrdered By: Marcos Valenzuela on 10-21-2024 Specific gravity (U) [Rel density] 1.010 1.002-1.030 [facility] Urine urobilinogen measureme ntOrdered By: Marcos Valenzuela on 10-21-2024 Urobilinogen Ql (U) Normal mg/dl Normal [facility] White blood cell (WBC) count Ordered By: Marcos Valenzuela on 10-21-2024 WBC (Bld) [#/Vol] 14.2 10*3/uL High 4.4-11.0 [facility] White blood cell countOrdere d By: Marcos Valenzuela on 10-21-2024 White blood cell count 0 SEEN /hpf 0-5 [facility] Internal Medicine Office Vis iton 10-03-2024 Internal Medicine Office Visit [facility] [address] [place] [address] [place] [address] OFFICE VISIT Date of Service: 10/03/24 MR#: [id number] Acct: [id number] Name: YVONNE LOMELI Rep #: [id number] : 1955 Provider: Dr. Soo rice MD Age/Sex: 69/F Location: [facility] Status: Signed Intake Vital Signs 06/05/24 09:26 10/03/24 14:11 Height 5 ft 5 ft Weight: 149 lb BMI 29.0 BP 142/66 H Blood Pressure Location Lt brachial Position Sitting Respiration 16 Pulse 70 Pulse Source Monitor Temp 97.3 F L Temp Source Temporal Pulse Oximetry (%) 97 Oxygen Delivery Method room air Intake Visit Reasons: 4 M FU Chief Complaint: Follow up of her chronic conditions. Help Desk Representative Required: No Accompanied by: Self Is patient in pain?: No Allergies phentolamine (From Regitine) Allergy (Verified 10/03/24 14:05) Hives amoxicillin Adverse Reaction (Verified 10/03/24 14:05) YEAST INFECTION Medications ???Medication ???Instructions ???Recorded ???Confirmed ???Type tizanidine 4 mg tablet 4 mg PO QHS spasms 10/15/18 History cyclosporine 0.05 % eye drops in a 1 drp EACH EYE BID dry eyes 10/2810/03/24 History dropperette (Restasis) cetirizine 10 mg capsule (Zyrtec) 10 mg PO DAILY ALLERGIES 09/02/20 10/03/24 History bisi oil 25 mg-levomenthol 1 cap PO QHS 05/02/22 10/03/24 His tory 20.75 mg capsule (FDgard) cyanocobalamin (vitamin B-12) 1,000 mcg PO DAILY 05/02/22 History 1,000 mcg capsule ascorbic acid (vitamin C) 500 mg 500 mg PO DAILY 07/29/22 10/03/24 History tablet L. acidophilus 5 mg-digestive 1 cap PO BID colon 09/07/22 History enzymes combo no.5 250 mg capsule (Probiotic-Digestive Enzymes) compress.stocking,knee,r eg,lrg #2 ea 09/07/22 08/13/24 Rx turmeric 400 mg capsule 400 mg PO DAILY 10/03/22 10/03/24 History compress.stocking,knee,r eg,lrg #2 ea 11/28/22 08/13/24 Rx ascorbic acid 125 mg-collagen, 1 cap PO DAILY 12/12/22 10/03/24 H istory hydrolyzed 740 mg capsule (Collagen Plus Vitamin C) sennosides 8.6 mg tablet (Senna 8.6 mg PO DAILY 12/12/22 10/03/24 History Laxative) tramadol 50 mg tablet 50 mg PO QHS pain 12/12/22 5 History fluorometholone 0.1 % eye 1 drp ophthalmic (eye) DAILY PRN 0 09/08/23 10/03/24 History drops,suspension eyes azelastine 137 mcg (0.1 %) nasal 2 spray intranasal DAILY PRN nasal 01/15/24 10/03/24 Rx spray congestion #30 mL buspirone 15 mg tablet 15 mg PO PRN PRN Anxiety #90 tabs 01/15/24 10/03/24 Rx cholecalciferol (vitamin D3) 25 2,000 unit PO DAILY Check with 10/03/24 History mcg (1,000 unit) tablet primary doctor vitamin k PO 01/15/24 10/03/24 History ipratropium bromide 21 mcg (0.03 2 spray intranasal BID-TID PRN 01/2110/03/24 Rx %) nasal spray postnasal drainage #30 mL pantoprazole 40 mg tablet,delayed 40 mg PO DAILY #90 tabs 08/13/24 10/03/24 Rx release hydrocortisone 2.5 % topical cream 1 applic topical BID PRN rash #2 8 10/03/24 10/03/24 Rx grams Have you fallen in the past year?: Yes [facility] Medical History (Updated 10/03/24 @ 16:[address] Soo Ladd MD) Change in skin mole Fatigue Lumbar radiculopathy Chronic cough Dry mouth Osteopenia with high risk of fracture Sinusitis RLQ abdominal pain Bite from insect Pain Hypertension Venous insufficiency of both lower extremities Urinary incontinence Chronic back pain Anxiety and depression Obesity (BMI 30-39.9) Impacted cerumen, right ear URI (upper respiratory infection) History of Clostridium difficile infection Fatty liver History of edema Health care maintenance Osteopenia Constipation Gastroparesis Chronic pain Therapeutic opioid induced constipation Narcotic bowel syndrome Lab test negative for COVID-19 virus Osteoarthritis of right hip Preoperative clearance Wears glasses Post-menopausal Bladder disease Back pain Arthritis History of hiatal hernia History of IBS History of diverticulitis Gastric reflux Non-smoker History of pain when walking History of stress test Dysphagia Hiatal hernia GERD (gastroesophageal reflux disease) Back problem Dermatitis Trochanteric bursitis of right hip Right hip pain Preventative health care Anxiety Anxiety Depression Thoracic stomach hernia Fibromyalgia Degenerated intervertebral disc Vitamin deficiency IBS (irritable bowel syndrome) Diverticulitis H/O emotional problems Carpal tunnel syndrome Arthritis Allergies Surgical History Hx of colonoscopy History of colectomy History of hip replacement History of esophagogastroduodenosco py (EGD) Hx of arthroscopy of shoulder History of esophagogastroduodenosco py (EGD) His (more content not included)... Normal [facility] Gastroenterology Visit Repor ton 08-13-2024 Gastroenterology Visit Report [facility] [address] [place] [address] OFFICE VISIT Date of Service: 08/13/24 MR#: [id number] Acct: [id number] Name: YVONNE LOMELI Rep #: [id number] : 1955 Provider: FLORIAN goel Age/Sex: 69/F Location: [facility] Status: Signed Intake Vital Signs 06/05/24 09:26 Height 5 ft Intake Visit Reasons: Test Result Allergies phentolamine (From Regitine) Allergy (Verified 08/13/24 14:02) Hives amoxicillin Adverse Reaction (Verified 08/13/24 14:02) YEAST INFECTION Medications ???Medication ???Instructions ???Recorded ???Confirmed ???Type tizanidine 4 mg tablet 4 mg PO QHS spasms 10/15/18 History cyclosporine 0.05 % eye drops in a 1 drp EACH EYE BID dry eyes 10/2808/13/24 History dropperette (Restasis) cetirizine 10 mg capsule (Zyrtec) 10 mg PO DAILY ALLERGIES 09/02/20 08/13/24 History bisi oil 25 mg-levomenthol 1 cap PO QHS 05/02/22 08/13/24 His tory 20.75 mg capsule (FDgard) cyanocobalamin (vitamin B-12) 1,000 mcg PO DAILY 05/02/22 History 1,000 mcg capsule ascorbic acid (vitamin C) 500 mg 500 mg PO DAILY 07/29/22 08/13/24 History tablet L. acidophilus 5 mg-digestive 1 cap PO BID colon 09/07/22 History enzymes combo no.5 250 mg capsule (Probiotic-Digestive Enzymes) compress.stocking,knee,r eg,lrg #2 ea 09/07/22 08/13/24 Rx turmeric 400 mg capsule 400 mg PO DAILY 10/03/22 08/13/24 History compress.stocking,knee,r eg,lrg #2 ea 11/28/22 08/13/24 Rx ascorbic acid 125 mg-collagen, 1 cap PO DAILY 12/12/22 08/13/24 H istory hydrolyzed 740 mg capsule (Collagen Plus Vitamin C) sennosides 8.6 mg tablet (Senna 8.6 mg PO DAILY 12/12/22 08/13/24 History Laxative) tramadol 50 mg tablet 50 mg PO QHS pain 12/12/22 5 History fluorometholone 0.1 % eye 1 drp ophthalmic (eye) DAILY PRN 0 09/08/23 08/13/24 History drops,suspension eyes azelastine 137 mcg (0.1 %) nasal 2 spray intranasal DAILY PRN nasal 01/15/24 08/13/24 Rx spray congestion #30 mL buspirone 15 mg tablet 15 mg PO PRN PRN Anxiety #90 tabs 01/15/24 08/13/24 Rx cholecalciferol (vitamin D3) 25 2,000 unit PO DAILY Check with 08/13/24 History mcg (1,000 unit) tablet primary doctor ipratropium bromide 21 mcg (0.03 2 spray intranasal BID PRN allergy 01/15/24 08/13/24 Rx %) nasal spray symptoms #30 mL vitamin k PO 01/15/24 08/13/24 History ipratropium bromide 21 mcg (0.03 2 spray intranasal BID-TID PRN 01/2108/13/24 Rx %) nasal spray postnasal drainage #30 mL montelukast 10 mg tablet 10 mg PO QPM #20 tabs 06/07/24 Rx (Singulair) pantoprazole 40 mg tablet,delayed 40 mg PO DAILY #90 tabs 08/13/24 08/13/24 Rx release Have you fallen in the past year?: No PFSH Medical History Chronic cough Dry mouth Osteopenia with high risk of fracture Sinusitis RLQ abdominal pain Bite from insect Pain Hypertension Venous insufficiency of both lower extremities Urinary incontinence Chronic back pain Anxiety and depression Obesity (BMI 30-39.9) Impacted cerumen, right ear URI (upper respiratory infection) History of Clostridium difficile infection Fatty liver History of edema Health care maintenance Osteopenia Constipation Gastroparesis Chronic pain Therapeutic opioid induced constipation Narcotic bowel syndrome Lab test negative for COVID-19 virus Osteoarthritis of right hip Preoperative clearance Wears glasses Post-menopausal Bladder disease Back pain Arthritis History of hiatal hernia History of IBS History of diverticulitis Gastric reflux Non-smoker History of pain when walking History of stress test Dysphagia Hiatal hernia GERD (gastroesophageal reflux disease) Back problem Dermatitis Trochanteric bursitis of right hip Right hip pain Preventative health care Anxiety Anxiety Depression Thoracic stomach hernia Fibromyalgia Degenerated intervertebral disc Vitamin deficiency IBS (irritable bowel syndrome) Diverticulitis H/O emotional problems Carpal tunnel syndrome Arthritis Allergies Surgical History Hx of colonoscopy History of colectomy History of hip replacement History of esophagogastroduodenosco py (EGD) Hx of arthroscopy of shoulder History of esophagogastroduodenosco py (EGD) History of carpal tunnel release History of shoulder surgery History of cholecystectomy History of tonsillectomy Family History Sister Anemia Mother Anxiety Blood clot in vein Myocardial infarction Heart disease Hormone Problems Hypertension Kidney disease Psychiat (more content not included)... [facility] ([facility]GY[facility] ) -------- YVONNE LOMELI ([id number]) 1955 F Date Time Provider Department 08/05/24 3:30 PM [facility] During your visit today, we recorded the following information about you: Blood pressure Weight Height 136/76 68 kg 1.524 m Anali Rico APRN.CNP 08/05/2024 3:59 PM Signed Employment Manager offered: Patient declinesLynnette Russell is a 69 year old who presents for an annual gynecologic exam without complaints. 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 Comments: Sexual Activity: Not Currently; No partner data on record Contraception: No contraception data on record PAST MEDICAL HISTORY Diagnosis Date Dysthymic disorder Depression (non-psychotic) Essential hypertension Generalized anxiety disorder Anxiety, Generalized Irritable bowel syndrome Irritable bowel Myalgia and myositis, unspecified Osteopenia after menopause 06/2021 PMB (postmenopausal bleeding) 2022,2023 Rotator cuff injury R side PAST SURGICAL HISTORY Procedure Laterality Date CHOLECYSTECTOMY Cholecystectomy COLONOSCOPY 05/2009 COLONOSCOPY FLX DX W/COLLJ SPEC WHEN PFRMD 05/2006 Colonoscopy COLONOSCOPY FLX DX W/COLLJ SPEC WHEN PFRMD 11/13/2013 ESOPHAGOGASTRODUODENOSCO PY TRANSORAL DIAGNOSTIC EGD ESOPHAGOGASTRODUODENOSCO PY TRANSORAL DIAGNOSTIC 11/13/2013 EGD HYSTEROSCOPY BX ENDOMETRIUMAND/POLYPC W/WO DANDC 12/16/2022 hysteroscopy DANDC INJECTION 12/07/2022 back NEUROPLASTY AND/TRANSPOS MEDIAN NRV CARPAL TUNNE Carpal tunnel decomp, right PAST SURGICAL HISTORY OF Removal bone spur right shoulder PAST SURGICAL HISTORY OF 09/15/2017 removal part of colon for diverticulitis SHOULDER SURGERY HX TONSILLECTOMY PRIMARY/SECONDARY Tonsillectomy FAMILY HISTORY Problem Relation Age of Onset Heart Mother Hypertension Mother Lipids Father Diabetes Paternal Grandmother Breast Cancer Maternal Aunt Breast Cancer Maternal Aunt SOCIAL HISTORY Social History Tobacco Use Smoking status: Never Smokeless tobacco: Never Vaping Use Vaping status: Never Used Substance Use Topics Alcohol use: No Drug use: No REVIEW OF SYSTEMS Abdomen: No abdominal pain, nausea, vomiting, diarrhea, +constipation. No bloating, early satiety, indigestion, or increased flatulence. Bladder: No dysuria, gross hematuria, +urinary frequency, +urinary urgency,+some incontinence- no longer using pessary Breast: No breast lumps, nipple d/c, overlying skin changes, redness or skin retraction Allergies and current medication updated:Yes SENSITIVE EXAM: The sensitive examination was discussed with the Patient or Patient's Authorized Nutrition Consultant. As applicable, any other physician, advance practice provider, medical student, or other health professional student that will be observing or involved in the sensitive examination for educational or training purposes was discussed with the Patient or Authorized Nutrition Consultant. The Patient or Authorized Nutrition Consultant has agreed to proceed with the sensitive examination. (Sensitive examination includes inspection and/or palpation of the breasts, pelvis, prostate and anorectal regions). EXAM: BP 136/76 Ht 5' 0" (1.52m) Wt 150 lb (68.0kg) LMP 08/31/2008 BMI 29.30 kg/(m2). GENERAL: pleasant, female in no apparent distress HEENT: Normocephalic, atraumatic, mucus membranes moist, and no lesions DERMATOLOGY: Normal, without lesions, non-icteric, and non-hirsute BREAST: soft, non-tender, symmetric, no dominant mass, normal nipple-areolar complex, no lymphadenopathy, and no nipple discharge CHEST: Normal inspiratory effort ABDOMEN: soft, non-tender, and no masses PELVIC: external genitalia normal, normal Bartholin's glands, urethra, [place]'s glands, no vulvar lesions, no cervical lesions, physiologic discharge present, normal appearing perineal body and perianal region BIMANUAL: uterus normal size, shape and consistency, no adnexal masses, and non-tender RECTOVAGINAL: deferred. NEURO: alert and oriented x3,exam grossly non-focal EXTREMITIES: normal ASSESSMENT/PLAN: 1) Health maintenance: Pap/HPV screening no longer needed Mammogram ordered Nutrition, exercise and routine health maintenance exams reviewed. Calcium/Vitamin D supplementation information provided. Colon cancer screening: up to date with screening BMD: ordered 2) Follow up one year or sooner as needed Anali Rico APRN.CARTON LINER A (more content not included)... Normal [facility] Abdomen/Pelvis WITH Contrast on 08-01-2024 Abdomen/Pelvis WITH Contrast [facility] Imaging Services [address] [place] [address] Abdomen/Pelvis WITH Contrast MR#: [id number] Acct: [id number] Name: YVONNE LOMELI Rep #: [id number] : 1955 F 69 From: Pierce Nova MD PCP: Dr. Soo Ladd MD Status: REG CLI Study: Abdomen/Pelvis WITH Contrast Date of Exam: 07/21 Exam# [id number] Ordering Dr: Caron Jones PROCEDURE: ABDOMEN/PELVIS WITH CONTRAST 08/01/2024 REASON FOR EXAM: LLQ ABD PAIN TECHNIQUE: Abdomen and pelvis CT with intravenous and oral contrast. Coronal and Sagittal reconstruction series were provided. PATIENT PREPARATION: Per protocol CONTRAST: 95 mL Isovue-300 One or more dose reduction techniques were used (e.g., Automated exposure control, adjustment of the mA and/or kV according to patient size, use of iterative reconstruction technique. RADIATION DOSE SUMMARY: CTDlvol: 16.6 mGy DLP: 781 mGycm COMPARISON: CT abdomen and pelvis on 03/13/2023 FINDINGS: Lung bases: Unremarkable Liver: Normal size. No mass. Gallbladder: Surgically absent. Spleen: Normal size. Pancreas: Normal size without evidence of mass, surrounding inflammation, or ductal dilation. Adrenals: Unremarkable Kidneys: No hydronephrosis or stone. Subcentimeter hypodensities in the right kidney are too small to characterize. Bladder: Unremarkable Reproductive Organs: Unremarkable Bowel: Postoperative changes of the distal colon. No obstruction or inflammation. Colonic diverticulosis. Normal appendix. Lymph nodes: Unremarkable Vasculature: Mild diffuse atherosclerotic calcifications are noted. Bones: Right total hip arthroplasty. Grade 1 anterolisthesis of L4 on L5. CT/Abdomen/Pelvis WITH Contrast IMPRESSION: Unremarkable CT of the abdomen and pelvis. Reading Location: [id number] CC: FLORIAN Jones; Dr. Soo Ladd MD Market Specialist: Signed Normal [facility] Gastroenterology Visit Repor ton 07-08-2024 Gastroenterology Visit Report [facility] Gastroenterology [address] [place] [address] OFFICE VISIT Date of Service: 07/08/24 MR#: [id number] Acct: [id number] Name: YVONNE LOMELI Rep #: [id number] : 1955 Provider: FLORIAN goel Age/Sex: 69/F Location: [facility] Status: Signed Intake Vital Signs 06/05/24 09:26 Height 5 ft Intake Visit Reasons: OVERDUE FOR OV Allergies phentolamine (From Regitine) Allergy (Verified 06/07/24 14:43) Hives amoxicillin Adverse Reaction (Verified 06/07/24 14:43) YEAST INFECTION Medications ???Medication ???Instructions ???Recorded ???Confirmed ???Type tizanidine 4 mg tablet 4 mg PO QHS spasms 10/15/18 History cyclosporine 0.05 % eye drops in a 1 drp EACH EYE BID dry eyes 10/2807/08/24 History dropperette (Restasis) cetirizine 10 mg capsule (Zyrtec) 10 mg PO DAILY ALLERGIES 09/02/20 07/08/24 History bisi oil 25 mg-levomenthol 1 cap PO QHS 05/02/22 07/08/24 His tory 20.75 mg capsule (FDgard) cyanocobalamin (vitamin B-12) 1,000 mcg PO DAILY 05/02/22 History 1,000 mcg capsule ascorbic acid (vitamin C) 500 mg 500 mg PO DAILY 07/29/22 07/08/24 History tablet L. acidophilus 5 mg-digestive 1 cap PO BID colon 09/07/22 History enzymes combo no.5 250 mg capsule (Probiotic-Digestive Enzymes) compress.stocking,knee,r eg,lrg #2 ea 09/07/22 07/08/24 Rx turmeric 400 mg capsule 400 mg PO DAILY 10/03/22 07/08/24 History compress.stocking,knee,r eg,lrg #2 ea 11/28/22 07/08/24 Rx ascorbic acid 125 mg-collagen, 1 cap PO DAILY 12/12/22 07/08/24 H istory hydrolyzed 740 mg capsule (Collagen Plus Vitamin C) sennosides 8.6 mg tablet (Senna 8.6 mg PO DAILY 12/12/22 07/08/24 History Laxative) tramadol 50 mg tablet 50 mg PO QHS pain 12/12/22 5 History fluorometholone 0.1 % eye 1 drp ophthalmic (eye) DAILY PRN 0 09/08/23 07/08/24 History drops,suspension eyes azelastine 137 mcg (0.1 %) nasal 2 spray intranasal DAILY PRN nasal 01/15/24 07/08/24 Rx spray congestion #30 mL buspirone 15 mg tablet 15 mg PO PRN PRN Anxiety #90 tabs 01/15/24 07/08/24 Rx cholecalciferol (vitamin D3) 25 2,000 unit PO DAILY Check with 07/08/24 History mcg (1,000 unit) tablet primary doctor ipratropium bromide 21 mcg (0.03 2 spray intranasal BID PRN allergy 01/15/24 07/08/24 Rx %) nasal spray symptoms #30 mL pantoprazole 40 mg tablet,delayed 40 mg PO DAILY #90 tabs 01/15/24 07/08/24 Rx release vitamin k PO 01/15/24 07/08/24 History ipratropium bromide 21 mcg (0.03 2 spray intranasal BID-TID PRN 01/2107/08/24 Rx %) nasal spray postnasal drainage #30 mL montelukast 10 mg tablet 10 mg PO QPM #20 tabs 06/07/2402/20 Rx (Singulair) Have you fallen in the past year?: No PFSH Medical History Chronic cough Dry mouth Osteopenia with high risk of fracture Sinusitis RLQ abdominal pain Bite from insect Pain Hypertension Venous insufficiency of both lower extremities Urinary incontinence Chronic back pain Anxiety and depression Obesity (BMI 30-39.9) Impacted cerumen, right ear URI (upper respiratory infection) History of Clostridium difficile infection Fatty liver History of edema Health care maintenance Osteopenia Constipation Gastroparesis Chronic pain Therapeutic opioid induced constipation Narcotic bowel syndrome Lab test negative for COVID-19 virus Osteoarthritis of right hip Preoperative clearance Wears glasses Post-menopausal Bladder disease Back pain Arthritis History of hiatal hernia History of IBS History of diverticulitis Gastric reflux Non-smoker History of pain when walking History of stress test Dysphagia Hiatal hernia GERD (gastroesophageal reflux disease) Back problem Dermatitis Trochanteric bursitis of right hip Right hip pain Preventative health care Anxiety Anxiety Depression Thoracic stomach hernia Fibromyalgia Degenerated intervertebral disc Vitamin deficiency IBS (irritable bowel syndrome) Diverticulitis H/O emotional problems Carpal tunnel syndrome Arthritis Allergies Surgical History Hx of colonoscopy History of colectomy History of hip replacement History of esophagogastroduodenosco py (EGD) Hx of arthroscopy of shoulder History of esophagogastroduodenosco py (EGD) History of carpal tunnel release History of shoulder surgery History of cholecystectomy History of tonsillectomy Family History Sister Anemia Mother Anxiety Blood clot in vein Myocardial infarction Heart disease Hormone Problems Hypertension Kidney disease Psychiatric (more content not included)... Normal [facility] Chest PA and Lateralon 06-07 Chest PA and Lateral [facility] Imaging Services [address] [place], [place] [address] Chest PA and Lateral MR#: [id number] Acct: [id number] Name: YVONNE LOMELI Amilcar Rep #: [id number] : 1955 F 68 From: Rom Meraz MD PCP: Dr. Soo Ladd MD Status: REG CLI Study: Chest PA and Lateral Date of Exam: 06/07/24 Exam# [id number] Ordering Dr: Soo Ladd MD EXAM: XR Chest, 2 Views CLINICAL INDICATION: CHRONIC COUGH TECHNIQUE: Frontal and lateral views of the chest. COMPARISON: No relevant prior studies available. FINDINGS: LUNGS AND PLEURAL SPACES: Unremarkable. No consolidation. No pneumothorax. HEART: Unremarkable. No cardiomegaly. MEDIASTINUM: Unremarkable. Normal mediastinal contour. BONES/JOINTS: Unremarkable. No acute fracture. RAD/Chest PA and Lateral IMPRESSION: No acute cardiopulmonary process. Reading [facility] CC: Dr. Soo Ladd MD Market Specialist: Signed Normal [facility] Urgent Care Visit Reporton 0 06-07-2024 Urgent Care Visit Report [facility] [address], [address] [place] [address] OFFICE VISIT Date of Service: 06/07/24 MR#: [id number] Acct: [id number] Name: YVONNE LOMELI Rep #: [id number] : 1955 Provider: JORDYN Proctor Age/Sex: 68/F Location: [facility] [place] Status: Signed Intake Vital Signs 06/05/24 09:26 06/07/24 14:43 Height 5 ft Weight: 152 lb BMI 29.7 BP 148/82 H 134/64 H Blood Pressure Location Lt brachial Lt brachial Position Sitting Sitting Respiration 14 14 Pulse 62 72 Pulse Source Monitor NIBP Temp 98.4 F 98.8 F Temp Source Temporal Oral Pulse Oximetry (%) 99 98 Oxygen Delivery Method room air room air Intake Visit Reasons: COUGH, DRAINAGE,SCRATCHY THROAT Chief Complaint: cough, drainage, ST Help Desk Representative Required: No Is patient in pain?: No Allergies phentolamine (From Regitine) Allergy (Verified 06/07/24 14:43) Hives amoxicillin Adverse Reaction (Verified 06/07/24 14:43) YEAST INFECTION Is last menstrual period known: No Post menopausal: Yes Patient : No Have you fallen in the past year?: No Nurse's Note: cough, drainage, ST intermittently x 1 month. saw PCP for same, CXR ordered but never completed by patient. denies fever, KAMINSKI, BA, N/V/D. hx allergies with injections but stopped those herself as she didnt want to continue to pay her co-pays. [facility] Medical History (Updated 06/05/24 @ 09:[address] Soo Ladd MD) Chronic cough Dry mouth Osteopenia with high risk of fracture Sinusitis RLQ abdominal pain Bite from insect Pain Hypertension Venous insufficiency of both lower extremities Urinary incontinence Chronic back pain Anxiety and depression Obesity (BMI 30-39.9) Impacted cerumen, right ear URI (upper respiratory infection) History of Clostridium difficile infection Fatty liver History of edema Health care maintenance Osteopenia Constipation Gastroparesis Chronic pain Therapeutic opioid induced constipation Narcotic bowel syndrome Lab test negative for COVID-19 virus Osteoarthritis of right hip Preoperative clearance Wears glasses Post-menopausal Bladder disease Back pain Arthritis History of hiatal hernia History of IBS History of diverticulitis Gastric reflux Non-smoker History of pain when walking History of stress test Dysphagia Hiatal hernia GERD (gastroesophageal reflux disease) Back problem Dermatitis Trochanteric bursitis of right hip Right hip pain Preventative health care Anxiety Anxiety Depression Thoracic stomach hernia Fibromyalgia Degenerated intervertebral disc Vitamin deficiency IBS (irritable bowel syndrome) Diverticulitis H/O emotional problems Carpal tunnel syndrome Arthritis Allergies Surgical History Hx of colonoscopy History of colectomy History of hip replacement History of esophagogastroduodenosco py (EGD) Hx of arthroscopy of shoulder History of esophagogastroduodenosco py (EGD) History of carpal tunnel release History of shoulder surgery History of cholecystectomy History of tonsillectomy Family History Sister Anemia Mother Anxiety Blood clot in vein Myocardial infarction Heart disease Hormone Problems Hypertension Kidney disease Psychiatric care Respiratory disease Thyroid disorder COPD (chronic obstructive pulmonary disease) Sleep apnea ulcer disease Grandmother Arthritis Diabetes CVA (cerebral vascular accident) Father Diverticulitis Hypertension High cholesterol Kidney disease Thyroid disorder ulcer disease Aunt Breast cancer Heart disease Skin cancer CVA (cerebral vascular accident) Daughter Depression Grandfather Myocardial infarction Other Crohn's disease Social History Smoking Status: Never smoker alcohol intake: never substance use type: does not use what type of physical activity do you participate in: none HPI HPI Chief Complaint: cough, drainage, ST Details: YVONNE LOMELI, is a 68 F who presents to the office today for complaint of cough and postnasal drainage as well as sore throat. Patient states that the cough has been intermittent for the past month and that her PCP has ordered a chest x-ray. Patient states that the sore throat and runny nose has only been ongoing for the past several days. She denies hemoptysis, shortness of breath or difficulty breathing. No nausea, vomiting or diarrhea. No loss of taste or smell. No other associated symptoms or alleviating/aggravating factors. ROS Const Constitutional: No other (as above) Exam Const General: cooperative and well developed HENMT Head: normal to insp (more content not included)... Normal [facility] JARETT w/ Reflex Mult Confirmon 06-06-2024 JARETT,DIRECT Negative Normal Negative [facility] Comment on above: Result Comment: Perf ormed at: CB - [facility] [address] [id number] Capacity Planning Engineer: Santi Singletary PhD, Phone: [phone] Performed By: #### L 871.7933, F761.2942, K2895.9811, L100.6030 ####[facility] [address] [place], [address] JARETT serumOrdered By: Vadim Ladd on 06-05-2024 Anti-Nuclear Antibody Screen Negative Negative [facility] Comment on above: Performed at: [address] [id number] Director: Santi Singletary PhD, Phone: [phone] Absolute lymphocyte countOrd ered By: Soo Ladd on 06-05-2024 Lymphocytes Auto (Unsp spec) [#/Vol] 3.10 10*3/uL 0.83-4.51 [facility] Absolute neutrophil countOrd ered By: Soo Ladd on 06-05-2024 Neutrophils (Bld) [#/Vol] 3.2 10*3/uL 2.0-7.7 [facility] Anion gap in Serum or Plasma Ordered By: Soo Ladd on 06-05-2024 Anion gap [Moles/Vol] 11 mmol/L 5-15 [facility] Automated lymphocyte count a s percentage of total leukocytesOrdered By: Soo Ladd on 06-05-2024 Lymphocytes/100 WBC Auto (Unsp spec) 42.2 % High 19-41 [facility] BUN/creatinine ratioOrdered By: Soo Ladd on 06-05-2024 Urea nitrogen/Creatinine [Mass ratio] 25.5 mg/mg High 10-20 [facility] Basophil percentageOrdered B y: Soo Ladd on 06-05-2024 Basophils/100 WBC (Bld) 1.5 % High 0-1 [facility] Bilirubin, totalOrdered By: Soo Ladd on 06-05-2024 Bilirubin [Mass/Vol] 0.34 mg/dL 0.00-1.30 [facility] CBC W/Diff, Automatedon Absolute Lymph 3.10 X10 3/uL Normal 0.83-4.51 [facility] Comment on above: Performed By: #### L 500.4100, L500.4050, L3100.5450, L100.0100 ####[facility] [address] [place], [address] Absolute Neut 3.2 X10 3/uL Normal 2.0-7.7 [facility] Comment on above: Performed By: #### L 500.4100, L500.4050, L3100.5450, L100.0100 ####[facility] [address] [place], [address] Basophils/100 WBC (Bld) 1.5 % High 0-1 [facility] Comment on above: Performed By: #### L 500.4100, L500.4050, L3100.5450, L100.0100 ####[facility] [address] [place], [address] Eosinophils/100 WBC (Bld) 5.7 % High 0-5 [facility] Comment on above: Performed By: #### L 500.4100, L500.4050, L3100.5450, L100.0100 ####[facility] [address] [place], [address] Erythrocyte distribution width (RBC) [Ratio] 12.1 % Normal 11.6-14.6 [facility] Comment on above: Performed By: #### L 500.4100, L500.4050, L3100.5450, L100.0100 ####[facility] [address] [place], [address] Hematocrit (Bld) [Volume fraction] 46.0 % Normal 37-47 [facility] Comment on above: Performed By: #### L 500.4100, L500.4050, L3100.5450, L100.0100 ####[facility] [address] [place], [address] Hemoglobin (Bld) [Mass/Vol] 15.6 g/dL High 12.0-15.0 [facility] Comment on above: Performed By: #### L 500.4100, L500.4050, L3100.5450, L100.0100 ####[facility] [address] [place], [address] IG% 0.100 Normal 0.0-0.9 [facility] Comment on above: Result Comment: IG% - Immature Granulocytes (promyelocytes, myelocytes and metamyelocytes) > 1% indicates that a LEFT SHIFT is Present. Performed By: #### L 500.4100, L500.4050, L3100.5450, L100.0100 ####[facility] [address] [place], [address] Lymphocytes/100 WBC (Bld) 42.2 % High 19-41 [facility] Comment on above: Performed By: #### L 500.4100, L500.4050, L3100.5450, L100.0100 ####[facility] [address] [place], [address] MCH (RBC) [Entitic mass] 32.0 pg Normal 27.0-32.0 [facility] Comment on above: Performed By: #### L 500.4100, L500.4050, L3100.5450, L100.0100 ####[facility] [address] [place], [address] MCHC (RBC) [Mass/Vol] 33.9 g/dL Normal 32-36 [facility] Comment on above: Performed By: #### L 500.4100, L500.4050, L3100.5450, L100.0100 ####[facility] [address] [place], [address] MCV (RBC) [Entitic vol] 94.3 fL Normal 81-99 [facility] Comment on above: Performed By: #### L 500.4100, L500.4050, L3100.5450, L100.0100 ####[facility] [address] [place], [address] Monocytes/100 WBC (Bld) 7.3 % Normal 0-10 [facility] Comment on above: Performed By: #### L 500.4100, L500.4050, L3100.5450, L100.0100 ####[facility] [address] [place], [address] Neutrophils/100 WBC (Bld) 43.2 % Low 47-70 [facility] Comment on above: Performed By: #### L 500.4100, L500.4050, L3100.5450, L100.0100 ####[facility] [address] [place], [address] Nucleated RBC (Bld) [#/Vol] 0 10*3/uL Normal 0-5 [facility] Comment on above: Performed By: #### L 500.4100, L500.4050, L3100.5450, L100.0100 ####[facility] [address] [place], [address] Platelet mean volume (Bld) [Entitic vol] 12.5 fL High 6.2-12.0 [facility] Comment on above: Performed By: #### L 500.4100, L500.4050, L3100.5450, L100.0100 ####[facility] [address] [place], [address] Platelets (Bld) [#/Vol] 209 10*3/uL Normal 150-450 [facility] Comment on above: Performed By: #### L 500.4100, L500.4050, L3100.5450, L100.0100 ####[facility] [address] [place], [address] RBC (Bld) [#/Vol] 4.88 10*6/uL Normal 4.2-5.4 [facility] Comment on above: Performed By: #### L 500.4100, L500.4050, L3100.5450, L100.0100 ####[facility] [address] [place], [address] RDW SD 42.4 fl Normal 35.1-43.9 [facility] Comment on above: Performed By: #### L 500.4100, L500.4050, L3100.5450, L100.0100 ####[facility] [address] [place], [address] WBC (Bld) [#/Vol] 7.4 10*3/uL Normal 4.4-11.0 [facility] Comment on above: Performed By: #### L 500.4100, L500.4050, L3100.5450, L100.0100 ####[facility] [address] [place], [address] Calculated very low density lipoprotein (VLDL) cholesterol measurementOrdered By: Soo Ladd on 06-05-2024 Calculated very low density lipoprotein (VLDL) cholesterol measurement 48 mg/dL [facility] 5-40 [facility] VLDL Cholesterol 48 mg/dL [facility] 540 [facility] Carbon dioxide, total [Moles /volume] in Central venous bloodOrdered By: Soo Ladd on 06-05-2024 CO2 [Moles/Vol] 23.5 mmol/L 21.0-32.0 [facility] Centromere B antibody assayO rdered By: Soo Ladd on 06-05-2024 Centromere B Antibody TNP [facility] Comment on above: Test not performed Chloride assayOrdered By: Kiesha Ladd on 06-05-2024 Chloride [Moles/Vol] 104 mmol/L 98-108 [facility] Chromatin antibody assayOrde red By: Soo Ladd on 06-05-2024 Antichromatin Antibodies TNP [facility] Comment on above: Test not performed Comprehensive Metabolic Prof ilon 06-05-2024 Albumin [Mass/Vol] 4.2 g/dL Normal 3.4-4.8 [facility] Comment on above: Performed By: #### L 500.4100, L500.4050, L3100.5450, L100.0100 ####[facility] [address] [place], [address] Albumin/Globulin [Mass ratio] 1.3 {ratio} Normal 0.9-2.4 [facility] Comment on above: Performed By: #### L 500.4100, L500.4050, L3100.5450, L100.0100 ####[facility] [address] [place], [address] ALK PHOS 70 U/L Normal 35-104 [facility] Comment on above: Performed By: #### L 500.4100, L500.4050, L3100.5450, L100.0100 ####[facility] [address] [place], [address] ALT [Catalytic activity/Vol] 19 U/L Normal <=34 [facility] Comment on above: Performed By: #### L 500.4100, L500.4050, L3100.5450, L100.0100 ####[facility] [address] [place], [address] AST [Catalytic activity/Vol] 25 U/L Normal <=31 [facility] Comment on above: Performed By: #### L 500.4100, L500.4050, L3100.5450, L100.0100 ####[facility] [address] [place], [address] Bilirubin [Mass/Vol] 0.34 mg/dL Normal 0.00-1.30 [facility] Comment on above: Performed By: #### L 500.4100, L500.4050, L3100.5450, L100.0100 ####[facility] [address] [place], [address] BUN/CRE 25.5 RATIO High 10-20 [facility] Comment on above: Performed By: #### L 500.4100, L500.4050, L3100.5450, L100.0100 ####[facility] [address] [place], [address] Calcium [Mass/Vol] 9.5 mg/dL Normal 7.6-11.0 [facility] Comment on above: Performed By: #### L 500.4100, L500.4050, L3100.5450, L100.0100 ####[facility] [address] [place], [address] Chloride [Moles/Vol] 104 mmol/L Normal 98-108 [facility] Comment on above: Performed By: #### L 500.4100, L500.4050, L3100.5450, L100.0100 ####[facility] [address] [place], [address] CO2 [Moles/Vol] 23.5 mmol/L Normal 21.0-32.0 [facility] Comment on above: Performed By: #### L 500.4100, L500.4050, L3100.5450, L100.0100 ####[facility] [address] [place], [address] Creatinine [Mass/Vol] 0.71 mg/dL Normal 0.70-1.20 [facility] Comment on above: Performed By: #### L 500.4100, L500.4050, L3100.5450, L100.0100 ####[facility] [address] [place], [address] GAP 11 Normal 5-15 [facility] Comment on above: Performed By: #### L 500.4100, L500.4050, L3100.5450, L100.0100 ####[facility] [address] [place], [address] GFR/1.73 sq M.predicted among non-blacks MDRD (S/P/Bld) [Vol rate/Area] 93 mL/min/{1.73_m2} Normal >60 [facility] Comment on above: Result Comment: mL/m in/1.73m2 CKD-EPI Creatinine Equation (2020) Performed By: #### L 500.4100, L500.4050, L3100.5450, L100.0100 ####[facility] [address] [place], [address] Globulin (S) [Mass/Vol] 3.2 g/dL Normal 2.2-4.2 [facility] Comment on above: Performed By: #### L 500.4100, L500.4050, L3100.5450, L100.0100 ####[facility] [address] [place], [address] Glucose [Mass/Vol] 108 mg/dL High 70-99 [facility] Comment on above: Performed By: #### L 500.4100, L500.4050, L3100.5450, L100.0100 ####[facility] [address] [place], [address] Potassium [Moles/Vol] 3.9 mmol/L Normal 3.3-5.1 [facility] Comment on above: Performed By: #### L 500.4100, L500.4050, L3100.5450, L100.0100 ####[facility] [address] [place], [address] Sodium [Moles/Vol] 139 mmol/L Normal 133-145 [facility] Comment on above: Performed By: #### L 500.4100, L500.4050, L3100.5450, L100.0100 ####[facility] [address] [place], [address] T PROT 7.4 g/dL Normal 5.9-8.4 [facility] Comment on above: Performed By: #### L 500.4100, L500.4050, L3100.5450, L100.0100 ####[facility] [address] [place], [address] Urea nitrogen [Mass/Vol] 18 mg/dL Normal 4-19 [facility] Comment on above: Performed By: #### L 500.4100, L500.4050, L3100.5450, L100.0100 ####[facility] [address] [place], [address] DNA double strand Ab Qn (S)O rdered By: Soo Ladd on 06-05-2024 Anti-Double Strand DNA Antibody TNP [facility] Comment on above: Test not performed Eosinophil percentageOrdered By: Soo Ladd on 06-05-2024 Eosinophils/100 WBC (Bld) 5.7 % High 0-5 [facility] Erythrocyte distribution wid th (RBC) [Ratio]Ordered By: Soo Ladd on 06-05-2024 Erythrocyte distribution width (RBC) [Entitic vol] 42.4 fL 35.1-43.9 [facility] Erythrocyte distribution wid th ratioOrdered By: Soo Ladd on 06-05-2024 Erythrocyte distribution width (RBC) [Ratio] 12.1 % 11.6-14.6 [facility] Erythrocyte distribution wid th standard deviationOrdered By: Soo Ladd on 06-05-2024 Erythrocyte distribution width (RBC) [Ratio] 42.4 fl 35.1-43.9 [facility] GFR/1.73 sq M.predicted becky g non-blacks MDRD (S/P/Bld) [Vol rate/Area]Ordered By: Soo Ladd on 06-05-2024 Estimated GFR (MDRD) Non-Af Amer 93 >60 [facility] Comment on above: mL/min/1.73m2 CKD-EP I Creatinine Equation (2020) Glomerular filtration rate ( GFR) estimation/1.73 sq m using serum, plasma, or whole bOrdered By: Soo Ladd on 06-05-2024 GFR/1.73 sq M.predicted among non-blacks MDRD (S/P/Bld) [Vol rate/Area] 93 mL/min/{1.73_m2} >60 [facility] Comment on above: mL/min/1.73m2 CKD-EP I Creatinine Equation (2020) Hematocrit Auto (Bld) [Volum e fraction]Ordered By: Soo Ladd on 06-05-2024 Hematocrit (Bld) [Volume fraction] 46.0 % 37-47 [facility] Hemoglobin measurementOrdere d By: Soo Ladd on 06-05-2024 Hemoglobin (Bld) [Mass/Vol] 15.6 g/dL High 12.0-15.0 [facility] Immature granulocytes/100 WB C Auto (Bld)Ordered By: Soo Ladd on 06-05-2024 Immature granulocytes/100 WBC (Bld) 0.100 % 0.0-0.9 [facility] Comment on above: IG% - Immature Granu locytes (promyelocytes, myelocytes and metamyelocytes) > 1% indicates that a LEFT SHIFT is Present. Internal Medicine Office Vis tamia 06-05-2024 Internal Medicine Office Visit [facility] [address] [place] [address] [place] [address] OFFICE VISIT Date of Service: 06/05/24 MR#: [id number] Acct: [id number] Name: YVONNE LOMELI Rep #: [id number] : 1955 Provider: Dr. Soo rice MD Age/Sex: 68/F Location: [facility] Status: Signed Intake Vital Signs 01/15/24 12:59 06/05/24 09:26 Height 5 ft 5 ft Weight: 147 lb 152 lb BMI 28.7 29.7 BP 122/82 H 148/82 H Blood Pressure Location Lt brachial Lt brachial Position Sitting Sitting Respiration 16 14 Pulse 58 L 62 Pulse Source Monitor Monitor Temp 98.2 F 98.4 F Temp Source Temporal Temporal Pulse Oximetry (%) 99 99 Oxygen Delivery Method room air room air Intake Visit Reasons: 4 M FU Chief Complaint: 4m f/u Help Desk Representative Required: No Is patient in pain?: No Allergies phentolamine (From Regitine) Allergy (Verified 06/05/24 09:09) Hives amoxicillin Adverse Reaction (Verified 06/05/24 09:09) YEAST INFECTION Medications ???Medication ???Instructions ???Recorded ???Confirmed ???Type tizanidine 4 mg tablet 4 mg PO QHS spasms 10/15/18 History cyclosporine 0.05 % eye drops in a 1 drp EACH EYE BID dry eyes 10/2806/05/24 History dropperette (Restasis) cetirizine 10 mg capsule (Zyrtec) 10 mg PO DAILY ALLERGIES 09/02/20 06/05/24 History bisi oil 25 mg-levomenthol 1 cap PO QHS 05/02/22 06/05/24 His tory 20.75 mg capsule (FDgard) cyanocobalamin (vitamin B-12) 1,000 mcg PO DAILY 05/02/22 History 1,000 mcg capsule ascorbic acid (vitamin C) 500 mg 500 mg PO DAILY 07/29/22 06/05/24 History tablet L. acidophilus 5 mg-digestive 1 cap PO BID colon 09/07/22 History enzymes combo no.5 250 mg capsule (Probiotic-Digestive Enzymes) compress.stocking,knee,r eg,lrg #2 ea 09/07/22 06/05/24 Rx turmeric 400 mg capsule 400 mg PO DAILY 10/03/22 06/05/24 History compress.stocking,knee,r eg,lrg #2 ea 11/28/22 06/05/24 Rx ascorbic acid 125 mg-collagen, 1 cap PO DAILY 12/12/22 06/05/24 H istory hydrolyzed 740 mg capsule (Collagen Plus Vitamin C) sennosides 8.6 mg tablet (Senna 8.6 mg PO DAILY 12/12/22 06/05/24 History Laxative) tramadol 50 mg tablet 50 mg PO QHS pain 12/12/22 5 History fluorometholone 0.1 % eye 1 drp ophthalmic (eye) DAILY PRN 0 09/08/23 06/05/24 History drops,suspension eyes azelastine 137 mcg (0.1 %) nasal 2 spray intranasal DAILY PRN nasal 01/15/24 06/05/24 Rx spray congestion #30 mL buspirone 15 mg tablet 15 mg PO PRN PRN Anxiety #90 tabs 01/15/24 06/05/24 Rx cholecalciferol (vitamin D3) 25 2,000 unit PO DAILY Check with 06/05/24 History mcg (1,000 unit) tablet primary doctor ipratropium bromide 21 mcg (0.03 2 spray intranasal BID PRN allergy 01/15/24 06/05/24 Rx %) nasal spray symptoms #30 mL pantoprazole 40 mg tablet,delayed 40 mg PO DAILY #90 tabs 01/15/24 06/05/24 Rx release vitamin k PO 01/15/24 06/05/24 History Have you fallen in the past year?: No Nurse's Note: Will be getting a pain injection for back by Dr. Judge on 06/21/24. Had insurance nurse check a1c was 5.2 Has BS readings, and values from that visit for us. W States she has a persistent dry cough that is worse at night, wonders if it's due to Reflux, has been going on for quite a few months. Occasionally she will cough so hard she will want to vomit but does not. She has been using [place] [employer] and it seems to help. She thinks that she is due for another endoscopy and will contact Dr. Phillips office for this. [facility] Medical History (Updated 06/05/24 @ 09:[address] 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 Normal [facility] Karime-1 antibody assayOrdered B y: Soo Ladd on 06-05-2024 KARIME-1 Antibody TNP [facility] Comment on above: Test not performed LDL calc ser/plasOrdered By: Soo Ladd on 06-05-2024 Cholesterol in LDL [Mass/Vol] 83 mg/dL [facility] Comment on above: Geqhbuyaur=385-107 m g/dL & Higher Ukks=071 mg/dL or greater LDL Cholesterol, Calculated 83 mg/dL [facility] Comment on above: Lngbpothyh=675-282 m g/dL & Higher Rhvy=163 mg/dL or greater Laboratory - Chemistry and C hemistry - challengeOrdered By: Soo Ladd on 06-05-2024 AST [Catalytic activity/Vol] 25 U/L <32 [facility] Lipid Profileon 06-05-2024 CHOL:HDL 3.81 Normal [facility] Comment on above: Performed By: #### L 500.4100, L500.4050, L3100.5450, L100.0100 ####[facility] [address] [place], [address] Cholesterol [Mass/Vol] 177 mg/dL Normal <=200 [facility] Comment on above: Result Comment: Chol esterol level, Desirable <200 mg/dL Borderline high cholesterol 200-239 mg/dL High cholesterol >=240 mg/dL Recommendations of the NCEP Adult Treatment Panel for the following risk-cutoff thresholds for the [place]. Performed By: #### L 500.4100, L500.4050, L3100.5450, L100.0100 ####[facility] [address] [place], [address] Cholesterol in HDL [Mass/Vol] 46 mg/dL Normal [facility] Comment on above: Result Comment: Abby onal Cholesterol Education Program (NCEP) guidelines: <40 mg/dL: Low HDL-cholesterol (major risk factor for CHD) >= 60 mg/dL: High HDL-cholesterol (negative risk factor for CHD) HDL-cholesterol is affected by a number of factors, e.g. smoking, exercise, hormones, sex and age. Performed By: #### L 500.4100, L500.4050, L3100.5450, L100.0100 ####[facility] [address] [place], [address] Cholesterol in LDL [Mass/Vol] 83 mg/dL Normal [facility] Comment on above: Result Comment: Bord vyfizo=323-257 mg/dL Higher Dqtp=627 mg/dL or greater Performed By: #### L 500.4100, L500.4050, L3100.5450, L100.0100 ####[facility] [address] [place], [address] Cholesterol in VLDL [Mass/Vol] 48 mg/dL High 5-40 [facility] Comment on above: Performed By: #### L 500.4100, L500.4050, L3100.5450, L100.0100 ####[facility] [address] [place], [address] Triglyceride [Mass/Vol] 238 mg/dL High [facility] Comment on above: Result Comment: The drugs N-Acetylcysteine and Metamizole may falsely depress this assay. Normal range: <150 mg/dL Borderline High: 150-199 mg/dL High: 200-499 mg/dL Very High: >500 mg/dL Performed By: #### L 500.4100, L500.4050, L3100.5450, L100.0100 ####[facility] [address] [place], [address] Lymphocytes Auto (Unsp spec) [#/Vol]Ordered By: Soo Ladd on 06-05-2024 Lymphocytes (Bld) [#/Vol] 3.10 10*3/uL 0.83-4.51 [facility] Lymphocytes/100 WBC Auto (Un sp spec)Ordered By: Soo Ladd on 06-05-2024 Lymphocytes/100 WBC (Bld) 42.2 % High 19-41 [facility] MCV (mean corpuscular volume ) determinationOrdered By: Soo Ladd on 06-05-2024 MCV (RBC) [Entitic vol] 94.3 fL 81-99 [facility] Mean corpuscular hemoglobin (MCH) determinationOrdered By: Soo Ladd on 06-05-2024 MCH (RBC) [Entitic mass] 32.0 pg 27.0-32.0 [facility] Mean corpuscular hemoglobin concentration (MCHC) determinationOrdered By: Soo Ladd on 06-05-2024 MCHC (RBC) [Mass/Vol] 33.9 g/dL 32-36 [facility] Mean platelet volume determi nationOrdered By: Soo Ladd on 06-05-2024 Platelet mean volume (Bld) [Entitic vol] 12.5 fL High 6.2-12.0 [facility] Monocyte percentageOrdered B y: Soo Ladd on 06-05-2024 Monocytes/100 WBC (Bld) 7.3 % 0-10 [facility] Neutrophil percentageOrdered By: Soo Ladd on 06-05-2024 Neutrophils/100 WBC (Bld) 43.2 % Low 47-70 [facility] Nucleated red blood cell per centageOrdered By: Soo Ladd on 06-05-2024 Nucleated RBC/100 WBC (Bld) [Ratio] 0 % 0-5 [facility] Platelet countOrdered By: Kiesha Ladd on 06-05-2024 Platelets (Bld) [#/Vol] 209 10*3/uL 150-450 [facility] Potassium (Unsp spec) [Mass/ Vol]Ordered By: Soo Ladd on 06-05-2024 Potassium [Moles/Vol] 3.9 mmol/L 3.3-5.1 [facility] Potassium measurement (mass/ volume)Ordered By: Soo Ladd on 06-05-2024 Potassium (Unsp spec) [Mass/Vol] 3.9 mmol/L 3.3-5.1 [facility] RBC Auto (Bld) [#/Vol]Ordere d By: Soo Ladd on 06-05-2024 RBC (Bld) [#/Vol] 4.88 10*6/uL 4.2-5.4 [facility] HOME VISITS NURSE abOrdered By: Soo Ladd on 06-05-2024 HOME VISITS NURSE Antibody [facility] Comment on above: Test not performed SCL-70 extractable nuclear A b Qn (S)Ordered By: Soo Ladd on 06-05-2024 Scl-70 (Scleroderma) Antibody [facility] Comment on above: Test not performed SS-A IgG antibody assayOrder ed By: Soo Ladd on 06-05-2024 SS-A/Ro IgG Antibody [facility] Comment on above: Test not performed SS-B IgG antibody assayOrder ed By: Soo Ladd on 06-05-2024 SS-B/La IgG Antibody [facility] Comment on above: Test not performed Screening total cholesterol/ high density lipoprotein (HDL) cholesterol ratioOrdered By: Soo Ladd on 06-05-2024 Cholesterol.total/Paola sterol in HDL [Mass ratio] 3.81 {ratio} [facility] Serum DNA double strand anti body assay (units/volume)Ordered By: Soo Ladd on 06-05-2024 DNA double strand Ab Qn (S) [facility] Comment on above: Test not performed Serum Scl-70 antibody assay (units/volume)Ordered By: Soo Ladd on 06-05-2024 SCL-70 extractable nuclear Ab Qn (S) [facility] Comment on above: Test not performed Serum creatinine measurement (mass/volume)Ordered By: Soo Ladd on 06-05-2024 Creatinine [Mass/Vol] 0.71 mg/dL 0.70-1.20 [facility] Serum globulin measurementOr dered By: Soo Ladd on 06-05-2024 Globulin (S) [Mass/Vol] 3.2 g/dL 2.2-4.2 [facility] Serum glucose measurement (m ass/volume)Ordered By: Soo Ladd on 06-05-2024 Glucose [Mass/Vol] 108 mg/dL High 70-99 [facility] Serum or plasma alanine win otransferase (ALT) measurementOrdered By: Soo Ladd on 06-05-2024 ALT [Catalytic activity/Vol] 19 U/L <35 [facility] Serum or plasma albumin mary ann urement (mass/volume)Ordered By: Soo Ladd on 06-05-2024 Albumin [Mass/Vol] 4.2 g/dL 3.4-4.8 [facility] Serum or plasma albumin/glob ulin mass ratioOrdered By: Soo Ladd on 06-05-2024 Albumin/Globulin [Mass ratio] 1.3 {ratio} 0.9-2.4 [facility] Serum or plasma alkaline yuliya sphatase measurementOrdered By: Soo Ladd 06-05-2024 ALP [Catalytic activity/Vol] 70 U/L 35-104 [facility] Serum or plasma calcium mary ann urement (mass/volume)Ordered By: Soo Ladd 06-05-2024 Calcium [Mass/Vol] 9.5 mg/dL 7.6-11.0 [facility] Serum or plasma cholesterol in HDL measurement (mass/volume)Ordered By: Soo Ladd on 06-05-2024 Cholesterol in HDL [Mass/Vol] 46 mg/dL >40 [facility] Comment on above: National Cholesterol Education Program (NCEP) guidelines:<40 mg/dL: Low HDL-cholesterol (major risk factor for CHD)>= 60 mg/dL: High HDL-cholesterol (negative risk factor for CHD)HDL-cholesterol is affected by a number of factors, e.g. smoking, exercise, hormones, sex and age. Serum or plasma cholesterol measurement (mass/volume)Ordered By: Soo Ladd on 06-05-2024 Cholesterol [Mass/Vol] 177 mg/dL <201 [facility] Comment on above: Cholesterol level, D esirable <200 mg/dLBorderline high cholesterol 200-239 mg/dLHigh cholesterol >=240 mg/dLRecommendations of the NCEP Adult Treatment Panel for the following risk-cutoff thresholds for the [place]. Serum or plasma urea nitroge n measurement (mass/volume)Ordered By: Soo Ladd on 06-05-2024 Urea nitrogen [Mass/Vol] 18 mg/dL 4-19 [facility] Harding antibody assayOrdered By: Soo Ladd on 06-05-2024 SM Antibody TNP [facility] Comment on above: Test not performed Sodium levelOrdered By: Jesus Ladd on 06-05-2024 Sodium [Moles/Vol] 139 mmol/L 133-145 [facility] Total proteinOrdered By: Donavan Ladd on 06-05-2024 Protein [Mass/Vol] 7.4 g/dL 5.9-8.4 [facility] Triglycerides measurementOrd ered By: Soo Ladd on 06-05-2024 Triglyceride [Mass/Vol] 238 mg/dL High <199 [facility] Comment on above: The drugs N-Acetylcy steine and Metamizole may falsely depress this assay. Normal range: <150 mg/dLBorderline High: 150-199 mg/dLHigh: 200-499 mg/dLVery High: >500 mg/dL White blood cell (WBC) count Ordered By: Soo Ladd on 06-05-2024 WBC (Bld) [#/Vol] 7.4 10*3/uL 4.4-11.0 [facility] CNPZuleima 03-22-2024 EUGENE Telephone (OBGYWM) -------- YVONNE LOMELI ([id number]) 1955 F Date Time Provider Department 03/22/24 ANALI RICO During your visit today, we recorded the following information about you: Anali Rico APRN.MARTINA 03/22/2024 7:06 AM Signed +yeast- Diflucan sent. Anali Rico APRN.Donato Velez RN 03/22/2024 8:40 AM Signed Pt notified and voiced understanding. Donato Lang RN Allergies As of Date: 03/22/2024 Noted Allergy Reaction REGLAN (METOCLOPRAMIDE HCL) 11/06/2013 7 - Swelling 14 - Other: See Comments Comments: Pt states her eyes swell when taking reglan AMOXICILLIN 05/14/2020 14 - Other: See Comments DOXYCYCLINE 08/29/2007 8 - GI Upset PHENTOLAMINE 06/13/2022 4 - Hives Date Reviewed: 03/21/2024 Reviewed by: Princess Mccarty LPN - Fully Assessed Reason for Visit: Results [95] Order(s):fluconazole (DIFLUCAN) 150 mg tabletTake 1 tablet by mouth one time only for 1 dose.Disp: 1 tabletRfl: 0 Prescriptions as of 03/22/2024 - fluconazole (DIFLUCAN) 150 mg tablet Take 1 tablet by mouth one time only for 1 dose. - estradiol (ESTRACE) 0.01 % (0.1 mg/gram) vaginal cream Use 1 g vaginally at bedtime for 2 weeks then 3 times/weeks for maintenance. - clobetasol (TEMOVATE) 0.05 % cream Apply to affected area 2x/day for 2 weeks. - azithromycin (ZITHROMAX) 250 mg tablet Take 250 mg by mouth as directed. For dental. - cephALEXin (KEFLEX) 500 mg capsule Take 500 mg by mouth as directed. 1 hour before dental appointment. - ofloxacin (FLOXIN) 0.3 % otic solution Use 5 Drops in both ears once daily. - pantoprazole DR (PROTONIX) 40 mg tablet Take 40 mg by mouth once daily. - OTC PRODUCT Take by mouth once daily. FD vanessa For acid reflux - traMADol (ULTRAM) 50 mg tablet take 1 tablet by mouth at bedtime if needed for pain - cetirizine (ZYRTEC) 10 mg tablet Take 10 mg by mouth once daily. - azelastine (ASTELIN) 0.1% nasal spray instill 2 sprays into each nostril twice a day - L. acidophilus-L. rhamnosus 15 billion cell cap Take 1 capsule by mouth once daily. FLORAJEN WOMEN. If on antibiotic, take at least 1-2 hours before or after antibiotic. KEEP REFRIGERATED - RESTASIS MULTIDOSE 0.05 % drop put 1 drop in into both eyes twice a day - fluorometholone (FML LIQUID FILM) 0.1 % ophthalmic suspension Use 1 Drop in both eyes twice daily. - SENOKOT-S 8.6-50 mg per tablet Take 2 tablets by mouth daily at bedtime. Daily, Every other day to every other day as needed - tiZANidine (ZANAFLEX) 4 mg tablet Take 1 tablet by mouth once daily. - cyanocobalamin 1,000 mcg tab Take 1 tablet by mouth once daily. - ergocalciferol, vitamin D2, 2,000 unit tab Take 1 tablet by mouth once each week. Problem List As Of Date 03/22/2024 Noted Resolved Pain in limb [M79.609] 08/27/2007 05/29/2014 Ingrowing nail [L60.0] 08/27/2007 05/29/2014 Calcaneal Spur [M77.30] 06/01/2009 Abdominal Pain, Unspecified Site [R10.9] 06/16/2009 Fibromyalgia [M79.7] 05/29/2014 Gastric reflux [K21.9] 05/29/2014 H/O urinary retention [Z87.898] 07/06/2015 Polypharmacy [Z79.899] 07/06/2015 Obesity, Class I, BMI 30-34.9 [E66.811] 12/28/2018 Female bladder prolapse [N81.10] 06/03/2021 Prescriptions ordered this encounter Disp Refills Start End FLUCONAZOLE 150 MG TABLET 1 ta* 0 03/22/2024 03/22/2024 Route: ORAL Sig: Take 1 tablet by mouth one time only for 1 dose. Encounter Status:Closed by DONATO LANG [facility]24 [facility]AT[facility] 0 03-21-2024 Lactobacillus crispatus+gasseri+jense marry + Gardnerella vaginalis + Atopobium vaginae rRNA BERNADETTE+probe Ql (Vag fld) Not detected Normal Not detected [facility] Comment on above: Order Comment: Speci men Type: SWABOrdering Facility: [facility] Address: [address] [place] [address] Performed By: #### C VTV, BVAMP ####[facility] LABCLIA [id number] [place] [address] [place] SHARLENE/TRICHOMONAS NAATon 0 03-21-2024 C. glabrata RNA BERNADETTE+probe Ql (Vag fld) Not detected Normal Not detected [facility] Comment on above: Order Comment: Speci men Type: SWABOrdering Facility: [facility] Address: [address] [place] [address] Performed By: #### C VTV, BVAMP ####[facility] LABCLIA [id number] [place] [address] [place] Sharlene sp DNA BERNADETTE+probe Ql (Vag fld) Detected Abnormal Not detected [facility] Comment on above: Order Comment: Speci men Type: SWABOrdering Facility: [facility] Address: [address] [place] [address] Result Comment: The Sharlene species group target includes C. albicans, C. tropicalis, C. parapsilosis, and C. dubliniensis. Performed By: #### C VTV, BVAMP ####[facility] LABCLIA [id number] [place] [address] [place] T. vaginalis DNA BERNADETTE+probe Ql (Unsp spec) Not detected Normal Not detected [facility] Comment on above: Order Comment: Speci men Type: SWABOrdering Facility: [facility] Address: [address] [place] [address] Performed By: #### C VTV, BVAMP ####[facility] LABCLIA [id number] [address] [address] [place] CNOVon 03-21-2024 CNOV Office Visit (OBGYWM ) -------- YVONNE LOMELI ([id number]) 1955 F Date Time Provider Department 03/21/24 10:15 AM ANALI RICO OBGYWM During your visit today, we recorded the following information about you: Blood pressure Weight 122/64 68.2 kg Anali Rico, KARTIK.CARTON LINER 03/21/2024 11:12 AM Signed Patient 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 Yvonne Lomeli is a 68 year old female who presents for problem visit vaginal irritation for 2 week(s). HPI: Patient has noticed increase in vaginal irritation and irritation to the inner labia minora has. She has decreased the use of the vaginal estrogen cream due to not being able to get a refill when she runs out. She states that she does notice an occasional vaginal odor, but has not seen any unusual vaginal discharge. 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 Comments: Sexual Activity: Not Currently; No partner data on record Contraception: No contraception data on record PAST MEDICAL HISTORY Diagnosis Date Dysthymic disorder Depression (non-psychotic) Essential hypertension Generalized anxiety disorder Anxiety, Generalized Irritable bowel syndrome Irritable bowel Myalgia and myositis, unspecified Osteopenia after menopause 06/2021 PMB (postmenopausal bleeding) 2022,2023 Rotator cuff injury R side PAST SURGICAL HISTORY Procedure Laterality Date CHOLECYSTECTOMY Cholecystectomy COLONOSCOPY 05/2009 COLONOSCOPY FLX DX W/COLLJ SPEC WHEN PFRMD 05/2006 Colonoscopy COLONOSCOPY FLX DX W/COLLJ SPEC WHEN PFRMD 11/13/2013 ESOPHAGOGASTRODUODENOSCO PY TRANSORAL DIAGNOSTIC EGD ESOPHAGOGASTRODUODENOSCO PY TRANSORAL DIAGNOSTIC 11/13/2013 EGD HYSTEROSCOPY BX ENDOMETRIUMAND/POLYPC W/WO DANDC 12/16/2022 hysteroscopy DANDC INJECTION 12/07/2022 back NEUROPLASTY AND/TRANSPOS MEDIAN NRV CARPAL TUNNE Carpal tunnel decomp, right PAST SURGICAL HISTORY OF Removal bone spur right shoulder PAST SURGICAL HISTORY OF 09/15/2017 removal part of colon for diverticulitis SHOULDER SURGERY HX TONSILLECTOMY PRIMARY/SECONDARY Tonsillectomy FAMILY HISTORY Problem Relation Age of Onset Heart Mother Hypertension Mother Lipids Father Diabetes Paternal Grandmother Breast Cancer Maternal Aunt Breast Cancer Maternal Aunt Social History Tobacco Use Smoking status: Never Smokeless tobacco: Never Vaping Use Vaping status: Never Used Substance Use Topics Alcohol use: No Drug use: No Current Outpatient Medications Medication Sig azithromycin (ZITHROMAX) 250 mg tablet Take 250 mg by mouth as directed. For dental. cephALEXin (KEFLEX) 500 mg capsule Take 500 mg by mouth as directed. 1 hour before dental appointment. ofloxacin (FLOXIN) 0.3 % otic solution Use 5 Drops in both ears once daily. pantoprazole DR (PROTONIX) 40 mg tablet Take 40 mg by mouth once daily. OTC PRODUCT Take by mouth once daily. FD vanessa For acid reflux traMADol (ULTRAM) 50 mg tablet take 1 tablet by mouth at bedtime if needed for pain cetirizine (ZYRTEC) 10 mg tablet Take 10 mg by mouth once daily. azelastine (ASTELIN) 0.1% nasal spray instill 2 sprays into each nostril twice a day L. acidophilus-L. rhamnosus 15 billion cell cap Take 1 capsule by mouth once daily. FLORAJEN WOMEN. If on antibiotic, take at least 1-2 hours before or after antibiotic. KEEP REFRIGERATED RESTASIS MULTIDOSE 0.05 % drop put 1 drop in into both eyes twice a day SENOKOT-S 8.6-50 mg per tablet Take 2 tablets by mouth daily at bedtime. Daily, Every other day to every other day as needed tiZANidine (ZANAFLEX) 4 mg tablet Take 1 tablet by mouth once daily. cyanocobalamin 1,000 mcg tab Take 1 tablet by mouth once daily. ergocalciferol, vitamin D2, 2,000 unit tab Take 1 tablet by mouth once each week. (Patient taking differently: Take 1 tablet by mouth one time a week. Daily) estradiol (ESTRACE) 0.01 % (0.1 mg/gram) vaginal cream Use 1 g vaginally at bedtime for 2 weeks then 3 times/weeks for maintenance. clobetasol (TEMOVATE) 0.05 % cream Apply to affected area 2x/day for 2 weeks. fluorometholone (FML LIQUID FILM) 0.1 % ophthalmic suspension Use 1 Drop in both eyes twice daily. No current facility-administered medications for this visit. Allergies As of Date: 03/21/2024 Allergen Noted Reaction REGLAN [METOCLOPRAMIDE HCL] 11/06/2013 Swelling and Other: See Comments AMOXICILLIN 05/14/2020 Other: See Comments DOXYCYCLINE 08/29/2007 GI Upset PHENTOLAMINE 06/13/2022 Hives Fully Assessed 03/21/2024 REVIEW OF SYSTEMS Expanded ROS: N/A Allergies and current medication updated:Yes SENSITIVE EXAM: The sensitive examination was discussed with the Patient or Patient's Authorized Nutrition Consultant. As applicable, any other physician, advance practice (more content not included)... Normal [facility] HIP, UNI W/ Pelvis 2-3 Views on 01-15-2024 HIP, UNI W/ Pelvis 2-3 Views [facility] Imaging Services [address] [place] [id number] HIP, UNI W/ Pelvis 2-3 Views MR#: [id number] Acct: [id number] Name: YVONNE LOMELI Rep #: [id number] : 1955 F 68 From: Fer Go DO PCP: Dr. Soo Ladd MD Status: REG CL Study: HIP, UNI W/ Pelvis 2-3 Views Date of Exam: Exam# [id number] Ordering Dr: China Ennis [id number] INDICATION: PAIN VERSUS RADICULAR SYMPTOMS EXAMINATION/TECHNIQUE: X-RAY - XR Hip Unilateral with Pelvis when performed; 3 Views COMPARISON: FINDINGS: There is a right hip prosthesis in place. No displaced fracture seen in this frontal view. No soft tissue swelling or gas. RAD/HIP, UNI W/ Pelvis 2-3 Views IMPRESSION: No evidence of displaced pelvic or hip fracture. Electronically Signed: Fer Go DO at 0:01 EST , CC: China Ennis; Dr. Soo Ladd MD Market Specialist: Signed Normal [facility] Internal Medicine Office Vis ito 01-15-2024 Internal Medicine Office Visit [facility] [place] [address] [place] [address] OFFICE VISIT Date of Service: 01/15/24 MR#: [id number] Acct: [id number] Name: YVONNE LOMELI Rep #: [id number] : 1955 Provider: Dr. Soo rice MD Age/Sex: 68/F Location: [facility] [place] [facility] Status: Signed Intake Vital Signs 09/08/23 14:09 10/19/23 14:04 01/15/24 12:59 Height 5 ft 5 ft 5 ft Weight: 147 lb BMI 28.7 BP 122/82 H Blood Pressure Location Lt brachial Position Sitting Respiration 16 Pulse 58 L Pulse Source Monitor Temp 98.2 F Temp Source Temporal Pulse Oximetry (%) 99 Oxygen Delivery Method room air Intake Visit Reasons: 4 M FU Chief Complaint: 4m f/u Help Desk Representative Required: No Accompanied by: Self Is patient in pain?: Yes Allergies phentolamine (From Regitine) Allergy (Verified 01/15/24 12:54) Hives amoxicillin Adverse Reaction (Verified 01/15/24 12:54) YEAST INFECTION Medications ???Medication ???Instructions ???Recorded ???Confirmed ???Type tizanidine 4 mg tablet 4 mg PO QHS spasms 10/15/18 01/15/24 History cyclosporine 0.05 % eye drops in a 1 drp EACH EYE BID dry eyes 11/08/19 01/15/24 History dropperette (Restasis) cetirizine 10 mg capsule (Zyrtec) 10 mg PO DAILY ALLERGIES 09/02/20 01/15/24 History bisi oil 25 mg-levomenthol 1 cap PO QHS 05/02/22 01/15/24 History 20.75 mg capsule (FDgard) cyanocobalamin (vitamin B-12) 1,000 mcg PO DAILY 05/02/22 01/15/24 History 1,000 mcg capsule ascorbic acid (vitamin C) 500 mg 500 mg PO DAILY 07/29/22 01/15/24 History tablet L. acidophilus 5 mg-digestive 1 cap PO BID colon 09/07/22 01/15/24 History enzymes combo no.5 250 mg capsule (Probiotic-Digestive Enzymes) compress.stocking,knee,r eg,lrg #2 ea 09/07/22 01/15/24 Rx turmeric 400 mg capsule 400 mg PO DAILY 10/03/22 01/15/24 History compress.stocking,knee,r eg,lrg #2 ea 11/28/22 01/15/24 Rx ascorbic acid 125 mg-collagen, 1 cap PO DAILY 12/12/22 01/15/24 History hydrolyzed 740 mg capsule (Collagen Plus Vitamin C) sennosides 8.6 mg tablet (Senna 8.6 mg PO DAILY 12/12/22 01/15/24 History Laxative) tramadol 50 mg tablet 50 mg PO QHS pain 12/12/22 01/15/24 History fluorometholone 0.1 % eye 1 drp ophthalmic (eye) DAILY PRN 09/08/23 01/15/24 History drops,suspension eyes azelastine 137 mcg (0.1 %) nasal 2 spray intranasal DAILY PRN nasal 01/15/24 01/15/24 Rx spray congestion #30 mL buspirone 15 mg tablet 15 mg PO PRN PRN Anxiety #90 tabs 01/15/24 01/15/24 Rx cholecalciferol (vitamin D3) 25 2,000 unit PO DAILY Check with 01/15/24 01/15/24 History mcg (1,000 unit) tablet primary doctor ipratropium bromide 21 mcg (0.03 2 spray intranasal BID PRN allergy 01/15/24 01/15/24 Rx %) nasal spray symptoms #30 mL pantoprazole 40 mg tablet,delayed 40 mg PO DAILY #90 tabs 01/15/24 01/15/24 Rx release vitamin k PO 01/15/24 History Have you fallen in the past year?: No [facility] Medical History (Updated 01/15/24 @ 13:[address] Soo Ladd MD) Osteopenia with high risk of fracture Sinusitis RLQ abdominal pain Bite from insect Pain Hypertension Venous insufficiency of both lower extremities Urinary incontinence Chronic back pain Anxiety and depression Obesity (BMI 30-39.9) Impacted cerumen, right ear URI (upper respiratory infection) History of Clostridium difficile infection Fatty liver History of edema Health care maintenance Osteopenia Constipation Gastroparesis Chronic pain Therapeutic opioid induced constipation Narcotic bowel syndrome Lab test negative for COVID-19 virus Osteoarthritis of right hip Preoperative clearance Wears glasses Post-menopausal Bladder disease Back pain Arthritis History of hiatal hernia History of IBS History of diverticulitis Gastric reflux Non-smoker History of pain when walking History of stress test Dysphagia Hiatal hernia GERD (gastroesophageal reflux disease) Back problem Dermatitis Trochanteric bursitis of right hip Right hip pain Preventative health care Anxiety Anxiety Depression Thoracic stomach hernia Fibromyalgia Degenerated intervertebral disc Vitamin deficiency IBS (irritable bowel syndrome) Diverticulitis H/O emotional problems Carpal tunnel syndrome Arthritis Allergies Surgical History Hx of colonoscopy History of colectomy History of hip replacement History of esophagogastroduodenosco py (EGD) Hx of arthroscopy of shoulder History of esophagogastroduodenosco py (EGD) History of carpal tunnel release History of shoulder surgery History of cholecystectomy History of tonsillectomy Family History Sister Anemia Mother Anxiety Blood clot in vein Myocardial infa (more content not included)... [facility] -------- YVONNE LOMELI ([id number]) 1955 F Date Time Provider Department 12/23/23 11:15 AM ASHLIE WALL During your visit today, we recorded the following information about you: Temperature Pulse Respiration Blood pressure 97.6 degrees 57/minute 16/minute 137/67 Weight 66.3 kg Ashlie Wall APRN.CNP 12/23/2023 12:57 PM Signed This note was created using [employer]. Subjective Yvonne Lomeli is a 68 year old female. 68 year old female with PMH fibromyalgia, GERD, presents for complaints of ear discomfort. Acute onset Over one week ago Right ear Feels clogged Last night left ear started to bother her. Denies accompanying URI sx Denies eye, nose or throat Denies fever or chills Denies cough Has had similar in past Has had ears irrigated, requesting the same presently The history is provided by the patient. No language teacher was used. Ear Problem There is pain in both ears. This is a new problem. The current episode started in the past 7 days. The problem occurs constantly. The problem has been unchanged. There has been no fever. The pain is at a severity of 3/10. The pain is mild. Associated symptoms include hearing loss. Pertinent negatives include no abdominal pain, coughing, diarrhea, ear discharge, headaches, neck pain, rash, rhinorrhea, sore throat or vomiting. She has tried nothing for the symptoms. The treatment provided no relief. There is no history of a chronic ear infection, hearing loss or a tympanostomy tube. PAST MEDICAL HISTORY Diagnosis Date - Dysthymic disorder Depression (non-psychotic) - Essential hypertension - Generalized anxiety disorder Anxiety, Generalized - Irritable bowel syndrome Irritable bowel - Myalgia and myositis, unspecified - Osteopenia after menopause 06/2021 - PMB (postmenopausal bleeding) 2022,2023 - Rotator cuff injury R side PAST SURGICAL HISTORY Procedure Laterality Date - CHOLECYSTECTOMY Cholecystectomy - COLONOSCOPY 05/2009 - COLONOSCOPY FLX DX W/COLLJ SPEC WHEN PFRMD 05/2006 Colonoscopy - COLONOSCOPY FLX DX W/COLLJ SPEC WHEN PFRMD 11/13/2013 - ESOPHAGOGASTRODUODENOSCO PY TRANSORAL DIAGNOSTIC EGD - ESOPHAGOGASTRODUODENOSCO PY TRANSORAL DIAGNOSTIC 11/13/2013 EGD - HYSTEROSCOPY BX ENDOMETRIUMAND/POLYPC W/WO DANDC 12/16/2022 hysteroscopy [facility] - INJECTION 12/07/2022 back - NEUROPLASTY AND/TRANSPOS MEDIAN NRV CARPAL TUNNE Carpal tunnel decomp, right - PAST SURGICAL HISTORY OF Removal bone spur right shoulder - PAST SURGICAL HISTORY OF 09/15/2017 removal part of colon for diverticulitis - SHOULDER SURGERY HX - TONSILLECTOMY PRIMARY/SECONDARY Tonsillectomy ALLERGIES Reglan [Metoclopramide Hcl], Amoxicillin, Doxycycline, and Phentolamine MEDICATIONS - azithromycin (ZITHROMAX) 250 mg tablet Take 250 mg by mouth as directed. For dental. - cephALEXin (KEFLEX) 500 mg capsule Take 500 mg by mouth as directed. 1 hour before dental appointment. - estradiol (ESTRACE) 0.01 % (0.1 mg/gram) vaginal cream Use 0.5g vaginally at bedtime for 2 weeks then 1-3 time/weeks for maintenance. - pantoprazole DR (PROTONIX) 40 mg tablet Take 40 mg by mouth once daily. - OTC PRODUCT Take by mouth once daily. FD vanessa For acid reflux - traMADol (ULTRAM) 50 mg tablet take 1 tablet by mouth at bedtime if needed for pain - cetirizine (ZYRTEC) 10 mg tablet Take 10 mg by mouth once daily. - azelastine (ASTELIN) 0.1% nasal spray instill 2 sprays into each nostril twice a day - L. acidophilus-L. rhamnosus 15 billion cell cap Take 1 capsule by mouth once daily. FLORAJEN WOMEN. If on antibiotic, take at least 1-2 hours before or after antibiotic. KEEP REFRIGERATED - RESTASIS MULTIDOSE 0.05 % drop put 1 drop in into both eyes twice a day - fluorometholone (FML LIQUID FILM) 0.1 % ophthalmic suspension Use 1 Drop in both eyes twice daily. - SENOKOT-S 8.6-50 mg per tablet Take 2 tablets by mouth daily at bedtime. Daily, Every other day to every other day as needed - tiZANidine (ZANAFLEX) 4 mg tablet Take 1 tablet by mouth once daily. - cyanocobalamin 1,000 mcg tab Take 1 tablet by mouth once daily. - ergocalciferol, vitamin D2, 2,000 unit tab Take 1 tablet by mouth once each week. (Patient taking differently: Take 1 tablet by mouth one time a week. Daily) - ofloxacin (FLOXIN) 0.3 % otic solution Use 5 Drops in both ears once daily. - buPROPion XL (WELLBUTRIN XL) 150 mg 24 hr tablet Take 150 mg by mouth every morning. (Patient not taking: Reported on 12/23/2023) FAMILY HISTORY Problem Relation Age of Onset - Heart Mother - Hypertension Mother - Lipids Father - Diabetes Paternal Grandmother - Breast Cancer Maternal Aunt - Breast Cancer Maternal Aunt Social History Tobacco Use - Smoking status: Never - Smokeless tobacco: Never Vaping Use - Vaping status: Never Used (more content not included)... Normal [facility] Basophil percentageOrdered B y: Soo Ladd on 03-06-2023 Chloride [Moles/Vol] 107 mmol/L 98-107 [facility] Glucose [Mass/Vol] 114 mg/dL 74-106 [facility] Comment on above: Fasting Glucose resu lt from 100 to 125 mg/dL suggests IMPAIRED HOMEOSTASIS per A.D.A. criteria. Potassium [Moles/Vol] 3.9 mmol/L 3.5-5.1 [facility] Sodium [Moles/Vol] 141 mmol/L 136-145 [facility] Laboratory - Chemistry and C hemistry - challengeOrdered By: Soo Ladd on 03-06-2023 CO2 [Moles/Vol] 27.0 mmol/L 21.0-32.0 [facility] Urea nitrogen/Creatinine [Mass ratio] 15.0 mg/mg 10-20 [facility] No Panel InformationOrdered By: Soo Ladd on 03-06-2023 Estimated GFR (MDRD) Amer 101 mL/min >60 [facility] Comment on above: GFR Calc Estimated GFR (MDRD) Non-Af Amer 84 mL/min >60 [facility] Comment on above: Non- GFR Calc Serum or plasma calcium mary ann urement (mass/volume)Ordered By: Soo Ladd on 03-06-2023 Calcium [Mass/Vol] 9.0 mg/dL 8.5-10.1 [facility] Serum or plasma creatinine m easurement (mass/volume)Ordered By: Soo Ladd on 03-06-2023 Creatinine [Mass/Vol] 0.74 mg/dL 0.55-1.02 [facility] Comment on above: The validity of the calculated GFR & GFRAA in patients over 70 years has not been determined. Clinical correlation is essential. Serum or plasma urea nitroge n measurement (mass/volume)Ordered By: Soo Ladd on 03-06-2023 Urea nitrogen [Mass/Vol] 11 mg/dL 7-18 [facility] Thin prep Papanicolaou smear with manual screeningOrdered By: Soo Ladd on 03-06-2023 Thin prep Papanicolaou smear with manual screening 7 5-15 [facility] Basophil percentageOrdered B y: Meagan Link on 12-16-2022 WBC (Bld) [#/Vol] 10.1 10*3/uL 4.4-11.0 [facility] Blood erythrocytes count (nu mber/volume)Ordered By: Meagan Link on 12-16-2022 RBC (Bld) [#/Vol] 5.18 10*6/uL 4.2-5.4 [facility] Blood hemoglobin measurement (mass/volume)Ordered By: Meagan Link on 12-16-2022 Hemoglobin (Bld) [Mass/Vol] 16.0 g/dL 12.0-15.0 [facility] Blood platelet mean volumeOr dered By: Meagan Link on 12-16-2022 Platelet mean volume (Bld) [Entitic vol] 11.5 fL 6.2-12.0 [facility] Determination of erythrocyte mean corpuscular volume (MCV)Ordered By: Meagan Link on 12-16-2022 MCV (RBC) [Entitic vol] 93.8 fL 81-99 [facility] Hematocrit Auto (Bld) [Volum e fraction]Ordered By: Meagan Link on 12-16-2022 Hematocrit (Bld) [Volume fraction] 48.6 % 37-47 [facility] Laboratory - Hematology and Cell countsOrdered By: Meagan Link on 12-16-2022 Erythrocyte distribution width (RBC) [Entitic vol] 43.0 fL 35.1-43.9 [facility] Erythrocyte distribution width (RBC) [Ratio] 12.3 % 11.6-14.6 [facility] MCH (RBC) [Entitic mass] 30.9 pg 27.0-32.0 [facility] MCHC Auto (RBC) [Mass/Vol]Or dered By: Meagan Link on 12-16-2022 MCHC (RBC) [Mass/Vol] 32.9 g/dL 32-36 [facility] Platelets bldOrdered By: Mariam Link on 12-16-2022 Platelets (Bld) [#/Vol] 247 10*3/uL 150-450 [facility] Microscopic observation Gram stain Nom (Vag fld)on 10-18-2022 Bacterial Vaginosis BACTERIAL VAGINOSIS RESULT: Stain results indicate mixed morphotypes consistent with transition from normal vaginal billy. Abnormal [facility] Bacterial Vaginosis Positive Abnormal [facility] Bacterial Vaginosis No Yeast observed Abnormal [facility] Bacterial Vaginosis No Polymorphonuclear Leukocytes Abnormal [facility] Laboratory - Chemistry and C hemistry - challengeOrdered By: Brendon Longoria on 10-17-2022 Free T4 [Mass/Vol] 0.85 ng/dL 0.76-1.46 [facility] No Panel InformationOrdered By: Brendon Longoria on 10-17-2022 Free Triiodothyronine (T3) pg/dL 2.5 pg/mL 2.18-3.98 [facility] Thyroid Stimulating Hormone (TSH) 1.67 uIU/mL 0.358-3.74 [facility] Serum or plasma thyroperoxid ase antibody assay (units/volume)Ordered By: Brendon Longoria on 10-17-2022 TPO Ab Qn [IU]/mL 0-34 [facility] Comment on above: Performed at: [address] [id number] Director: Santi Singletary PhD, Phone: [phone] Absolute lymphocyte countOrd ered By: Brendon Longoria on 09-21-2022 Lymphocytes Auto (Unsp spec) [#/Vol] 2.64 10*3/uL 0.83-4.51 [facility] Basophil percentageOrdered B y: Brendon Longoria on 09-21-2022 Basophil percentage 0-5 SEEN /hpf 0-5 [facility] Basophils/100 WBC (Bld) 1.0 % 0-1 [facility] Bilirubin [Mass/Vol] 0.60 mg/dL 0.20-1.00 [facility] Comment on above: For patients on eltr ombopag therapy, use of Dimension [place] TBIL is not recommended. Chloride [Moles/Vol] 108 mmol/L 98-107 [facility] Eosinophils/100 WBC (Bld) 1.9 % 0-5 [facility] Glucose [Mass/Vol] 134 mg/dL 74-106 [facility] Comment on above: Fasting Glucose resu lt greater than or equal to 126 mg/dL suggests DIABETES MELLITUS per A.D.A. criteria. Neutrophils (Bld) [#/Vol] 6.8 10*3/uL 2.0-7.7 [facility] Neutrophils/100 WBC (Bld) 65.0 % 47-70 [facility] Potassium [Moles/Vol] 3.3 mmol/L 3.5-5.1 [facility] Protein [Mass/Vol] 7.8 g/dL 6.4-8.2 [facility] Sodium [Moles/Vol] 138 mmol/L 136-145 [facility] WBC (Bld) [#/Vol] 10.5 10*3/uL 4.4-11.0 [facility] Bilirubin Test strip Ql (U)O rdered By: Brendon Longoria on 09-21-2022 Bilirubin Ql (U) Negative Negative [facility] Blood erythrocytes count (nu mber/volume)Ordered By: Brendon Longoria on 09-21-2022 RBC (Bld) [#/Vol] 4.62 10*6/uL 4.2-5.4 [facility] Blood hemoglobin measurement (mass/volume)Ordered By: Brendon Longoria on 09-21-2022 Hemoglobin (Bld) [Mass/Vol] 14.9 g/dL 12.0-15.0 [facility] Blood lymphocytes/100 leukoc ytesOrdered By: Brendon Longoria on 09-21-2022 Lymphocytes/100 WBC (Bld) 25.1 % 19-41 [facility] Blood monocytes/100 leukocyt esOrdered By: Brendon Longoria on 09-21-2022 Monocytes/100 WBC (Bld) 6.8 % 0-10 [facility] Blood platelet mean volumeOr dered By: Brendon Longoria on 09-21-2022 Platelet mean volume (Bld) [Entitic vol] 12.1 fL 6.2-12.0 [facility] Determination of erythrocyte mean corpuscular volume (MCV)Ordered By: Brendon Longoria on 09-21-2022 MCV (RBC) [Entitic vol] 95.2 fL 81-99 [facility] Erythrocyte sedimentation ra teOrdered By: Brendon Longoria on 09-21-2022 ESR (Bld) [Velocity] 12 mm/h 0-30 [facility] Hematocrit Auto (Bld) [Volum e fraction]Ordered By: [place] Swati on 09-21-2022 Hematocrit (Bld) [Volume fraction] 44.0 % 37-47 [facility] Ketones Test strip Ql (U)Ord ered By: Brendon Longoria on 09-21-2022 Ketones Ql (U) Negative Negative [facility] Laboratory - Chemistry and C hemistry - challengeOrdered By: Brendon Longoria on 09-21-2022 Albumin [Mass/Vol] 4.1 g/dL 2.9-4.4 [facility] ALP [Catalytic activity/Vol] 93 U/L 45-117 [facility] ALT [Catalytic activity/Vol] 49 U/L 13-56 [facility] CO2 [Moles/Vol] 23.0 mmol/L 21.0-32.0 [facility] Globulin (S) [Mass/Vol] 3.9 g/dL 2.2-4.2 [facility] Urea nitrogen/Creatinine [Mass ratio] 17.1 mg/mg 10-20 [facility] Laboratory - Hematology and Cell countsOrdered By: Brendon Longoria on 09-21-2022 Erythrocyte distribution width (RBC) [Entitic vol] 42.8 fL 35.1-43.9 [facility] Erythrocyte distribution width (RBC) [Ratio] 12.2 % 11.6-14.6 [facility] Immature granulocytes/100 WBC (Bld) 0.200 % 0.0-0.9 [facility] Comment on above: IG% - Immature Granu locytes (promyelocytes, myelocytes and metamyelocytes) > 1% indicates that a LEFT SHIFT is Present. MCH (RBC) [Entitic mass] 32.3 pg 27.0-32.0 [facility] Nucleated RBC/100 WBC (Bld) [Ratio] 0 % 0-5 [facility] MCHC Auto (RBC) [Mass/Vol]Or dered By: Brendon Longoria on 09-21-2022 MCHC (RBC) [Mass/Vol] 33.9 g/dL 32-36 [facility] Mucus LM Ql (Urine sed)Order ed By: Brendon Longoria on 09-21-2022 Mucus Ql (Urine sed) 0 SEEN /hpf [facility] Nitrite Test strip Ql (U)Ord ered By: Brendon Longoria on 09-21-2022 Nitrite Ql (U) Negative Negative [facility] No Panel InformationOrdered By: Brendon Longoria on 09-21-2022 Addendum Document Comment . [facility] Comment on above: The SPE pattern appe ars unremarkable. Evidence ofmonoclonal protein is not apparent. Dypcb-3-Ygvnucddp 0.2 g/dL 0.0-0.4 [facility] Kdowm-8-Rnyoagbzi 0.5 g/dL 0.4-1.0 [facility] Estimated GFR (MDRD) Amer 83 mL/min >60 [facility] Comment on above: GFR Calc Estimated GFR (MDRD) Non-Af Amer 68 mL/min >60 [facility] Comment on above: Non- GFR Calc Gamma Globulins 1.3 g/dL 0.4-1.8 [facility] Hepatitis A Antibody Total Negative Negative [facility] Comment on above: Performed at: [facility] [address] [id number] Director: Santi Singletary PhD, Phone: [phone] Hepatitis C Antibody Non-Reactive Nonreactive [facility] Comment on above: Non Reactive: < 0.8 Equivocal: >/= 0.8 to < 1.0 Reactive: >/= 1.0The CDC recommends that a reactive/equivocal HCV antibody result be followed up by the HCV Nucleic Acid Amplificationtest (289973) Miscellaneous Test See comment [facility] Comment on above: TEST RESULTS LIMITSM yeloperoxidase (MPO) A, 8331 High pmol/L 0-469 Results verified by repeat testing Low CVD Risk <470 Moderate Risk 470 - 539 High Risk >539CommentsA: Results of this test are labeled for research purposes only by the assay's senior engineering manager. The performance characteristics of this assay have not beenestablished by the senior engineering manager. The result should not be used for treatment or for diagnostic purposes without confirmation of the diagnosis by anothermedically established diagnostic product or procedure. The performance characteristics were determined by [facility] TESTING PERFORMED AT [facility]. ORIGINAL REPORT ON FILE IN LAB CONTAINS ADDITIONAL TEST SITE INFORMATION. Serum Cryoglobulins Comment None detected [facility] Comment on above: None Detected at 72 hoursThis test was developed and its performance characteristicsdetermined by [employer]. It has not been cleared orapproved by the Food and Drug Administration. Platelets bldOrdered By: Trung Longoria on 09-21-2022 Platelets (Bld) [#/Vol] 219 10*3/uL 150-450 [facility] Protein Fractions Elph [Inte rp]Ordered By: Brendon Longoria on 09-21-2022 Protein Fractions [Interp] Comment . [facility] Comment on above: Protein electrophore sis scan will follow via computer,mail, or logging supervisor delivery. Protein Test strip Ql (U)Ord ered By: Brendon Longoria on 09-21-2022 Protein Ql (U) Negative Negative [facility] Serum albumin to globulin ra tia by protein electrophoresisOrdered By: Brendon Longoria on 09-21-2022 Albumin/Globulin Elph [Mass ratio] 1.3 0.7-1.7 [facility] Serum globulin measurement ( mass/volume)Ordered By: Brendon Longoria on 09-21-2022 Globulin (S) [Mass/Vol] 3.2 g/dL 2.2-3.9 [facility] Serum hepatitis B virus core antibody detectionOrdered By: Brendon Longoria on 09-21-2022 HBV core Ab Ql (S) Negative Negative [facility] Serum hepatitis B virus surf hayde antibody IgG detectionOrdered By: Brendon Longoria on 09-21-2022 HBV surface IgG Ql (S) Non-Reactive [facility] Comment on above: Non Reactive: Incons istent with immunity less than <10 mIU/mL Reactive: Consistent with immunity greater than or equal to 10 mIU/mL Serum nuclear antibody titer by immunofluorescenceOrdered By: Brendon Longoria on 09-21-2022 Nuclear Ab IF (S) [Titer] Negative . [facility] Comment on above: Negative <1:80 Borde rline 1:80 Positive >1:80ICAP nomenclature: [id number]-0For more information about Hep-2 cell patterns useANApatterns.org, the official website for theInternational Consensus on Antinuclear Antibody (JARETT)Patterns (ICAP).Performed at: [facility] [id number] Director: Santi Singletary PhD, Phone: [phone] Serum or plasma albumin mary ann urement (mass/volume)Ordered By: Brendon Longoria on 09-21-2022 Albumin [Mass/Vol] 3.9 g/dL 3.2-5.0 [facility] Serum or plasma albumin/glob ulin mass ratioOrdered By: Brendon Longoria 09-21-2022 Albumin/Globulin [Mass ratio] 1.0 {ratio} 0.9-2.4 [facility] Serum or plasma beta globuli n measurement by electrophoresis (mass/volume)Ordered By: Brendon Longoria on 09-21-2022 Beta globulin Elph [Mass/Vol] 1.2 g/dL 0.7-1.3 [facility] Serum or plasma calcium mary ann urement (mass/volume)Ordered By: Brendon Longoria on 09-21-2022 Calcium [Mass/Vol] 9.1 mg/dL 8.5-10.1 [facility] Serum or plasma creatinine m easurement (mass/volume)Ordered By: Brendon Longoria on 09-21-2022 Creatinine [Mass/Vol] 0.88 mg/dL 0.55-1.02 [facility] Comment on above: The validity of the calculated GFR & GFRAA in patients over 70 years has not been determined. Clinical correlation is essential. Serum or plasma urea nitroge n measurement (mass/volume)Ordered By: Brendon Longoria on 09-21-2022 Urea nitrogen [Mass/Vol] 15 mg/dL 7-18 [facility] Serum rheumatoid factor dete ctionOrdered By: Brendon Longoria on 09-21-2022 Rheumatoid factor Ql (S) < 10.0 IU/mL <15 [facility] Squamous epithelial cells de tection in urine sediment by light microscopyOrdered By: Brendon Longoria on 09-21-2022 Epithelial cells.squamous LM Ql (Urine sed) 0 SEEN /hpf 5-10 [facility] Thin prep Papanicolaou smear with manual screeningOrdered By: Brendon Longoria on 09-21-2022 Thin prep Papanicolaou smear with manual screening 34 U/L 15-37 [facility] Thin prep Papanicolaou smear with manual screening 7 5-15 [facility] Thin prep Papanicolaou smear with manual screening See comment [facility] Comment on above: Result: Not Observed Total protein bloodOrdered B y: Brendon Longoria on 09-21-2022 Protein [Mass/Vol] 7.3 g/dL 6.0-8.5 [facility] Urine blood detectionOrdered By: Brendon Longoria on 09-21-2022 RBC Ql (U) Negative Negative [facility] RBC Ql (U) 0 SEEN /hpf 0-5 [facility] Urine clarityOrdered By: Trung Longoria on 09-21-2022 Clarity (U) Sl. Cloudy Clear [facility] Urine color determinationOrd ered By: Brendon Longoria on 09-21-2022 Color (U) Yellow Yellow [facility] Urine glucose detectionOrder ed By: Brendon Longoria on 09-21-2022 Glucose Ql (U) Normal mg/dl Normal [facility] Urine leukocyte esterase det ection by dipstickOrdered By: Brendon Longoria on 09-21-2022 Leukocyte esterase Test strip Ql (U) 500 /ul Negative [facility] Urine pHOrdered By: Brendon Aguilera oad on 09-21-2022 pH (U) 6.5 [pH] 5.0 - 8.0 [facility] Urine sediment bacteria coun t by microscopy (number/high power field)Ordered By: Brendon Longoria on 09-21-2022 Bacteria LM.HPF (Urine sed) [#/Area] 0 /[HPF] None Seen [facility] Urine specific gravity measu rementOrdered By: Brendon Longoria on 09-21-2022 Specific gravity (U) [Rel density] 1.005 1.002-1.030 [facility] Urobilinogen Auto test strip Ql (U)Ordered By: Brendon Longoria on 09-21-2022 Urobilinogen Ql (U) Normal mg/dl Normal [facility] Absolute lymphocyte countOrd ered By: Dr. Ladd on 07-29-2022 Lymphocytes Auto (Unsp spec) [#/Vol] 3.28 10*3/uL 0.83-4.51 [facility] Basophil percentageOrdered B y: Dr. Ladd on 07-29-2022 Basophils/100 WBC (Bld) 0.9 % 0-1 [facility] Bilirubin [Mass/Vol] 0.40 mg/dL 0.20-1.00 [facility] Comment on above: For patients on eltr ombopag therapy, use of Dimension [place] TBIL is not recommended. Chloride [Moles/Vol] 105 mmol/L 98-107 [facility] Cholesterol [Mass/Vol] 191 mg/dL <200 [facility] Comment on above: <200 mg/dL Desirable 200-240 mg/dL Borderline >240 mg/dL High Risk Eosinophils/100 WBC (Bld) 2.2 % 0-5 [facility] Glucose [Mass/Vol] 110 mg/dL 74-106 [facility] Comment on above: Fasting Glucose resu lt from 100 to 125 mg/dL suggests IMPAIRED HOMEOSTASIS per A.D.A. criteria. Neutrophils (Bld) [#/Vol] 5.5 10*3/uL 2.0-7.7 [facility] Neutrophils/100 WBC (Bld) 56.0 % 47-70 [facility] Potassium [Moles/Vol] 4.4 mmol/L 3.5-5.1 [facility] Protein [Mass/Vol] 7.8 g/dL 6.4-8.2 [facility] Sodium [Moles/Vol] 140 mmol/L 136-145 [facility] Triglyceride [Mass/Vol] 290 mg/dL <199 [facility] Comment on above: The drugs N-Acetylcy steine and Metamizole may falsely depress this assay.Serum Triglycerides Reference Interval Normal <150 mg/dL Borderline high 150 - 199 mg/dL High 200 - 499 mg/dL Very High > or = 500 mg/dL WBC (Bld) [#/Vol] 9.7 10*3/uL 4.4-11.0 [facility] Blood erythrocytes count (nu mber/volume)Ordered By: Dr. Ladd on 07-29-2022 RBC (Bld) [#/Vol] 4.78 10*6/uL 4.2-5.4 [facility] Blood hemoglobin measurement (mass/volume)Ordered By: Dr. Ladd on 07-29-2022 Hemoglobin (Bld) [Mass/Vol] 15.2 g/dL 12.0-15.0 [facility] Blood lymphocytes/100 leukoc ytesOrdered By: Dr. Ladd on 07-29-2022 Lymphocytes/100 WBC (Bld) 33.7 % 19-41 [facility] Blood monocytes/100 leukocyt esOrdered By: Dr. Ladd on 07-29-2022 Monocytes/100 WBC (Bld) 7.0 % 0-10 [facility] Blood platelet mean volumeOr dered By: Dr. Ladd on 07-29-2022 Platelet mean volume (Bld) [Entitic vol] 11.5 fL 6.2-12.0 [facility] Determination of erythrocyte mean corpuscular volume (MCV)Ordered By: Dr. Ladd on 07-29-2022 MCV (RBC) [Entitic vol] 94.1 fL 81-99 [facility] Hematocrit Auto (Bld) [Volum e fraction]Ordered By: Dr. Ladd on 07-29-2022 Hematocrit (Bld) [Volume fraction] 45.0 % 37-47 [facility] Laboratory - Chemistry and C hemistry - challengeOrdered By: Dr. Ladd on 07-29-2022 ALP [Catalytic activity/Vol] 105 U/L 45-117 [facility] ALT [Catalytic activity/Vol] 48 U/L 13-56 [facility] CO2 [Moles/Vol] 27.0 mmol/L 21.0-32.0 [facility] Globulin (S) [Mass/Vol] 3.8 g/dL 2.2-4.2 [facility] Urea nitrogen/Creatinine [Mass ratio] 19.5 mg/mg 10-20 [facility] Laboratory - Hematology and Cell countsOrdered By: Dr. Ladd on 07-29-2022 Erythrocyte distribution width (RBC) [Entitic vol] 42.2 fL 35.1-43.9 [facility] Erythrocyte distribution width (RBC) [Ratio] 12.0 % 11.6-14.6 [facility] Immature granulocytes/100 WBC (Bld) 0.200 % 0.0-0.9 [facility] Comment on above: IG% - Immature Granu locytes (promyelocytes, myelocytes and metamyelocytes) > 1% indicates that a LEFT SHIFT is Present. MCH (RBC) [Entitic mass] 31.8 pg 27.0-32.0 [facility] Nucleated RBC/100 WBC (Bld) [Ratio] 0 % 0-5 [facility] MCHC Auto (RBC) [Mass/Vol]Or dered By: Dr. Ladd on 07-29-2022 MCHC (RBC) [Mass/Vol] 33.8 g/dL 32-36 [facility] No Panel InformationOrdered By: Dr. Ladd on 07-29-2022 Estimated GFR (MDRD) Amer 84 mL/min >60 [facility] Comment on above: GFR Calc Estimated GFR (MDRD) Non-Af Amer 69 mL/min >60 [facility] Comment on above: Non- GFR Calc Platelets bldOrdered By: Dr. Ladd on 07-29-2022 Platelets (Bld) [#/Vol] 209 10*3/uL 150-450 [facility] Serum or plasma albumin mary ann urement (mass/volume)Ordered By: Dr. Ladd on 07-29-2022 Albumin [Mass/Vol] 4.0 g/dL 3.2-5.0 [facility] Serum or plasma albumin/glob ulin mass ratioOrdered By: Dr. Ladd on 07-29-2022 Albumin/Globulin [Mass ratio] 1.1 {ratio} 0.9-2.4 [facility] Serum or plasma calcium mary ann urement (mass/volume)Ordered By: Dr. Ladd on 07-29-2022 Calcium [Mass/Vol] 9.3 mg/dL 8.5-10.1 [facility] Serum or plasma cholesterol in HDL measurement (mass/volume)Ordered By: Dr. Ladd on 07-29-2022 Cholesterol in HDL [Mass/Vol] 42 mg/dL >40 [facility] Comment on above: The drugs N-Acetylcy steine and Metamizole may falsely depress this assay. Reference Range HDL <40 mg/dL Low HDL Cholesterol HDL >or= 60 mg/dL High HDL Cholesterol Serum or plasma cholesterol in VLDL measurement (mass/volume)Ordered By: Dr. Ladd on 07-29-2022 Cholesterol in VLDL [Mass/Vol] 58 mg/dL 5-40 [facility] Serum or plasma creatinine m easurement (mass/volume)Ordered By: Dr. Ladd on 07-29-2022 Creatinine [Mass/Vol] 0.87 mg/dL 0.55-1.02 [facility] Comment on above: The validity of the calculated GFR & GFRAA in patients over 70 years has not been determined. Clinical correlation is essential. Serum or plasma low density lipoprotein (LDL) cholesterol measurement (mass/volume)Ordered By: Dr. Ladd on 07-29-2022 Cholesterol in LDL [Mass/Vol] 91 mg/dL 0-130 [facility] Serum or plasma urea nitroge n measurement (mass/volume)Ordered By: Dr. Ladd on 07-29-2022 Urea nitrogen [Mass/Vol] 17 mg/dL 7-18 [facility] Thin prep Papanicolaou smear with manual screeningOrdered By: Dr. Ladd on 07-29-2022 Thin prep Papanicolaou smear with manual screening 34 U/L 15-37 [facility] Thin prep Papanicolaou smear with manual screening 8 5-15 [facility] No Panel Informationon 06-03 POC SARS CoV-2 Antigen Negative [facility] Absolute lymphocyte counton 08-13-2021 Lymphocytes Auto (Unsp spec) [#/Vol] 2.97 10*3/uL 0.83-4.51 [facility] Work Phone: [phone] Basophil percentageon 2021 Basophils/100 WBC (Bld) 1.1 % 0-1 [facility] Work Phone: Bilirubin [Mass/Vol] 0.30 mg/dL 0.20-1.00 [facility] Work Phone: Comment on above: For patients on eltr ombopag therapy, use of Dimension [place] TBIL is not recommended. Chloride [Moles/Vol] 107 mmol/L 98-107 [facility] Work Phone: Cholesterol [Mass/Vol] 171 mg/dL <200 [facility] Work Phone: Comment on above: <200 mg/dL Desirable 200-240 mg/dL Borderline >240 mg/dL High Risk Eosinophils/100 WBC (Bld) 2.2 % 0-5 [facility] Work Phone: Glucose [Mass/Vol] 99 mg/dL 74-106 [facility] Work Phone: Neutrophils (Bld) [#/Vol] 5.6 10*3/uL 2.0-7.7 [facility] Work Phone: Neutrophils/100 WBC (Bld) 58.9 % 47-70 [facility] Work Phone: Potassium [Moles/Vol] 3.7 mmol/L 3.5-5.1 [facility] Work Phone: [phone] Comment on above: Slight Hemolysis, Re sult may be falsely increased. Protein [Mass/Vol] 7.8 g/dL 6.4-8.2 [facility] Work Phone: Sodium [Moles/Vol] 139 mmol/L 136-145 [facility] Work Phone: Triglyceride [Mass/Vol] 233 mg/dL <199 [facility] Work Phone: Comment on above: The drugs N-Acetylcy steine and Metamizole may falsely depress this assay.Serum Triglycerides Reference Interval Normal <150 mg/dL Borderline high 150 - 199 mg/dL High 200 - 499 mg/dL Very High > or = 500 mg/dL WBC (Bld) [#/Vol] 9.5 10*3/uL 4.4-11.0 [facility] Work Phone: Blood erythrocytes count (nu mber/volume)on 08-13-2021 RBC (Bld) [#/Vol] 4.92 10*6/uL 4.2-5.4 [facility] Work Phone: Blood hemoglobin measurement (mass/volume)on 08-13-2021 Hemoglobin (Bld) [Mass/Vol] 15.3 g/dL 12.0-15.0 [facility] Work Phone: Blood lymphocytes/100 leukoc yteson 08-13-2021 Lymphocytes/100 WBC (Bld) 31.3 % 19-41 [facility] Work Phone: Blood monocytes/100 leukocyt eson 08-13-2021 Monocytes/100 WBC (Bld) 6.3 % 0-10 [facility] Work Phone: Blood platelet mean volumeon 08-13-2021 Platelet mean volume (Bld) [Entitic vol] 12.1 fL 6.2-12.0 [facility] Work Phone: Determination of erythrocyte mean corpuscular volume (MCV)on 08-13-2021 MCV (RBC) [Entitic vol] 94.5 fL 81-99 [facility] Work Phone: Hematocrit Auto (Bld) [Volum e fraction]on 08-13-2021 Hematocrit (Bld) [Volume fraction] 46.5 % 37-47 [facility] Work Phone: Laboratory - Chemistry and C hemistry - challengeon 08-13-2021 ALP [Catalytic activity/Vol] 124 U/L 45-117 [facility] Work Phone: ALT [Catalytic activity/Vol] 43 U/L 13-56 [facility] Work Phone: CO2 [Moles/Vol] 25.0 mmol/L 21.0-32.0 [facility] Work Phone: Globulin (S) [Mass/Vol] 4.0 g/dL 2.2-4.2 [facility] Work Phone: Urea nitrogen/Creatinine [Mass ratio] 13.8 mg/mg 10-20 [facility] Work Phone: Laboratory - Hematology and Cell countson 08-13-2021 Erythrocyte distribution width (RBC) [Entitic vol] 42.8 fL 35.1-43.9 [facility] Work Phone: Erythrocyte distribution width (RBC) [Ratio] 12.3 % 11.6-14.6 [facility] Work Phone: Immature granulocytes/100 WBC (Bld) 0.200 % 0.0-0.9 [facility] Work Phone: Comment on above: IG% - Immature Granu locytes (promyelocytes, myelocytes and metamyelocytes) > 1% indicates that a LEFT SHIFT is Present. MCH (RBC) [Entitic mass] 31.1 pg 27.0-32.0 [facility] Work Phone: Nucleated RBC/100 WBC (Bld) [Ratio] 0 % 0-5 [facility] Work Phone: MCHC Auto (RBC) [Mass/Vol]on 08-13-2021 MCHC (RBC) [Mass/Vol] 32.9 g/dL 32-36 [facility] Work Phone: No Panel Informationon 08-13 Estimated GFR (MDRD) Amer 93 mL/min >60 [facility] Work Phone: Comment on above: GFR Calc Estimated GFR (MDRD) Non-Af Amer 77 mL/min >60 [facility] Work Phone: Comment on above: Non- GFR Calc Platelets bldon 08-13-2021 Platelets (Bld) [#/Vol] 218 10*3/uL 150-450 [facility] Work Phone: Serum or plasma albumin mary ann urement (mass/volume)on 08-13-2021 Albumin [Mass/Vol] 3.8 g/dL 3.2-5.0 [facility] Work Phone: Serum or plasma albumin/glob ulin mass ratioon 08-13-2021 Albumin/Globulin [Mass ratio] 1.0 {ratio} 0.9-2.4 [facility] Work Phone: Serum or plasma calcium mary ann urement (mass/volume)on 08-13-2021 Calcium [Mass/Vol] 9.2 mg/dL 8.5-10.1 [facility] Work Phone: Serum or plasma cholesterol in HDL measurement (mass/volume)on 08-13-2021 Cholesterol in HDL [Mass/Vol] 45 mg/dL >40 [facility] Work Phone: Comment on above: The drugs N-Acetylcy steine and Metamizole may falsely depress this assay. Reference Range HDL <40 mg/dL Low HDL Cholesterol HDL >or= 60 mg/dL High HDL Cholesterol Serum or plasma cholesterol in VLDL measurement (mass/volume)on 08-13-2021 Cholesterol in VLDL [Mass/Vol] 47 mg/dL 5-40 [facility] Work Phone: Serum or plasma creatinine m easurement (mass/volume)on 08-13-2021 Creatinine [Mass/Vol] 0.80 mg/dL 0.55-1.02 [facility] Work Phone: Comment on above: The validity of the calculated GFR & GFRAA in patients over 70 years has not been determined. Clinical correlation is essential. Serum or plasma low density lipoprotein (LDL) cholesterol measurement (mass/volume)on 08-13-2021 Cholesterol in LDL [Mass/Vol] 79 mg/dL 0-130 [facility] Work Phone: Serum or plasma urea nitroge n measurement (mass/volume)on 08-13-2021 Urea nitrogen [Mass/Vol] 11 mg/dL 7-18 [facility] Work Phone: Thin prep Papanicolaou smear with manual screeningon 08-13-2021 Thin prep Papanicolaou smear with manual screening 28 U/L 15-37 [facility] Work Phone: Comment on above: Slight Hemolysis, Re sult may be falsely increased. Thin prep Papanicolaou smear with manual screening 7 5-15 [facility] Work Phone: DXA-AXIAL SKELETONon 022 [facility] MONAE SCREENINGon 07-19-2021 [facility] Laboratory - Microbiology an d Antimicrobial susceptibilityon 07-16-2021 SARS-CoV-2 (COVID-19) RNA BERNADETTE+probe Ql (Unsp spec) Not detected [facility] Work Phone: No Panel Informationon 07-16 Influenza Types A,B Rapid (Clinic) Not detected [facility] Work Phone: CNPNon 11-07-2019 CNPN Telephone (UROLAE) -------- YVONNE LOMELI ([id number]) 1955 F Date Time Provider Department 11/07/19 CELINE MOORE During your visit today, we recorded the following information about you: Chelsea Gallagher 11/07/2019 1:38 PM Signed Yvonne cancelled her 3 month follow up because she is going to have surgery for something other than urogyn. She wanted to let you know that she is scheduled with her OB[facility] [employer] and she will get fitted for her pessary with her. Chelsea Gallagher Allergies As of Date: 11/07/2019 Noted Allergy Reaction REGLAN (METOCLOPRAMIDE HCL) 11/06/2013 7 - Swelling 14 - Other: See Comments Comments: Pt states her eyes swell when taking reglan DOXYCYCLINE 08/29/2007 8 - GI Upset Date Reviewed: 11/01/2019 [facility] Jacky - Fully Assessed Reason for Visit: FYI-No Action Needed [265] Prescriptions as of 11/07/2019 Sig: TIZANIDINE 4 MG TABLET Take 1 tablet by mouth once d* VENLAFAXINE ER 37.5 MG CAPSUL* Take 1 capsule by mouth once * HYOSCYAMINE 0.125 MG SUBLINGU* PLACE 1 (ONE) TABLET UNDER TH* CYCLOBENZAPRINE 10 MG TABLET Take 10 mg by mouth three osmin* OXYCODONE-ACETAMINOPHEN 5 MG-* Take 1 tablet by mouth every * AMITRIPTYLINE ORAL Take by mouth. ESOMEPRAZOLE MAGNESIUM 20 MG * Take 20 mg by mouth. BUSPIRONE 15 MG TABLET Take 1 tablet by mouth three * CYANOCOBALAMIN (VIT B-12) 1,0* Take 1 tablet by mouth once d* ERGOCALCIFEROL (VITAMIN D2) 5* Take 1 tablet by mouth once e* Problem List As Of Date 11/07/2019 Noted Resolved Pain in limb [M79.609] 08/27/2007 05/29/2014 Ingrowing nail [L60.0] 08/27/2007 05/29/2014 Calcaneal Spur [M77.30] 06/01/2009 Abdominal Pain, Unspecified Site [R10.9] 06/16/2009 Fibromyalgia [M79.7] 05/29/2014 Gastric reflux [K21.9] 05/29/2014 H/O urinary retention [Z87.898] 07/06/2015 Polypharmacy [Z79.899] 07/06/2015 Obesity, Class I, BMI 30-34.9 [E66.9] 12/28/2018 Encounter Status:Closed by CHELSEA GOMEZ on 11/07/19 [facility] 09-03-2019 CNOV Office Visit (GYNGRN ) -------- YVONNE LOMELI ([id number]) 1955 F Date Time Provider Department 09/03/19 11:30 AM CELINE MOORE During your visit today, we recorded the following information about you: Weight Height 70.3 kg 1.549 m Celine Moore MD 09/03/2019 3:08 PM Signed Female Pelvic Medicine AND Reconstructive Surgery Follow-Up Yvonne Lomeli is a 64 year old female, who presents for a follow-up of bladder prolapse. History since last visit: Stopped Myrbetriq due to increasing blood pressure. Not taking any OAB medications at this time. She is not as significantly bothered by her OAB symptoms since she has been home a lot. Wants to try alternative conservative therapy. 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 She has no history of an abnormal mammogram LMP: Patient's last menstrual period was 08/31/2008.; Menopause n/a: Menstrual history: NA; Deliveries: 4 vaginal REVIEW OF SYSTEMS General: Negative for unintentional weight loss, fever, chills, or weakness. Skin: Negative for rash or itching. Psychiatric: Negative for depression. Reports normal stress. Neurologic: Negative for new headache or syncope. Endocrine: Negative for sweating, cold intolerance or heat intolerance. Cardiovascular: Negative for recent chest pain, chest pressure or chest discomfort. Hematologic/Lymphatic: Negative for easy bruising or excessive bleeding. Respiratory: Negative for wheezing, shortness of breath or persistent cough. Gastrointestinal: Negative for persistent abdominal pain. Negative for anorexia, persistent nausea and/or vomiting. Musculoskeletal: muscle pain, back pain, joint pain/stiffness I have confirmed and edited as necessary, the PFSH and ROS obtained by others. Celine Moore MD OBJECTIVE: Ht 5' 1" (1.55m) Wt 155 lb (70.3kg) LMP 08/31/2008 BMI 29.30 kg/(m2). General: Well appearing, alert, in no acute distress, well-hydrated, well nourished. Impression: Yvonne Lomeli is a 64 year old female with urgency incontinence, urinary urgency and frequency. Plan: Myrbetriq stopped due to increasing blood pressures Not a candidate for anticholinergic medications due to constipation and dry eyes. Reviewed and discussed OAB care pathway including 3rd line therapy options. Yvonne prefers a conservative approach. Lifestyle/behavioral modifications and pelvic floor muscle exercises reviewed. Follow up in 3 months. MD Celine Vela MD 09/03/2019 12:10 PM Signed Try lifestyle/behavioral modifications, pelvic floor muscle exercises Referring Provider: ANALI RANDOLPH [[id number]] Allergies As of Date: 09/03/2019 Noted Allergy Reaction REGLAN (METOCLOPRAMIDE HCL) 11/06/2013 7 - Swelling 14 - Other: See Comments Comments: Pt states her eyes swell when taking reglan DOXYCYCLINE 08/29/2007 8 - GI Upset Date Reviewed: 09/03/2019 Reviewed by: Celine Moore - Fully Assessed Reason for Visit: F/U 6 Month [444] Primary Visit Diagnosis:Urgency incontinence [N39.41] Other Visit Diagnoses:Urinary urgency [R39.15] Urinary frequency [R35.0] Prescriptions as of 09/03/2019 Sig: MIRABEGRON ER 25 MG TABLET,EX* Take 1 tablet by mouth once d* HYOSCYAMINE 0.125 MG SUBLINGU* PLACE 1 (ONE) TABLET UNDER TH* CYCLOBENZAPRINE 10 MG TABLET Take 10 mg by mouth three osmin* OXYCODONE-ACETAMINOPHEN 5 MG-* Take 1 tablet by mouth every * AMITRIPTYLINE ORAL Take by mouth. ESOMEPRAZOLE MAGNESIUM 20 MG * Take 20 mg by mouth. BUSPIRONE 15 MG TABLET Take 1 tablet by mouth three * CYANOCOBALAMIN (VIT B-12) 1,0* Take 1 tablet by mouth once d* ERGOCALCIFEROL (VITAMIN D2) 5* Take 1 tablet by mouth once e* Problem List As Of Date 09/03/2019 Noted Resolved Pain in limb [M79.609] 08/27/2007 05/29/2014 Ingrowing nail [L60.0] 08/27/2007 05/29/2014 Calcaneal Spur [M77.30] 06/01/2009 Abdominal Pain, Unspecified Site [R10.9] 06/16/2009 Fibromyalgia [M79.7] 05/29/2014 Gastric reflux [K21.9] 05/29/2014 H/O urinary retention [Z87.898] 07/06/2015 Polypharmacy [Z79.899] 07/06/2015 Obesity, Class I, BMI 30-34.9 [E66.9] 12/28/2018 Other instructions from your clinician: Try lifestyle/behavioral modifications, pelvic floor muscle exercises Disposition: Return in about 3 months (around 12/04/2019). Follow-up and Disposition History Recorded Encounter Status:Closed by CELINE MOORE MD on 09/03/19 [facility] 09-03-2019 PROGRESS HNO ID: [id number] Author: Celine Moore Service: ? Author Type: Physician Type: Progress Notes Filed: 09/03/2019 3:08 PM Note Text: Female Pelvic Medicine AND Reconstructive Surgery Follow-Up Yvonne Lomeli is a 64 year old female, who presents for a follow-up of bladder prolapse. History since last visit: Stopped Myrbetriq due to increasing blood pressure. Not taking any OAB medications at this time. She is not as significantly bothered by her OAB symptoms since she has been home a lot. Wants to try alternative conservative therapy. 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 She has no history of an abnormal mammogram LMP: Patient's last menstrual period was 08/31/2008.; Menopause n/a: Menstrual history: NA; Deliveries: 4 vaginal REVIEW OF SYSTEMS General: Negative for unintentional weight loss, fever, chills, or weakness. Skin: Negative for rash or itching. Psychiatric: Negative for depression. Reports normal stress. Neurologic: Negative for new headache or syncope. Endocrine: Negative for sweating, cold intolerance or heat intolerance. Cardiovascular: Negative for recent chest pain, chest pressure or chest discomfort. Hematologic/Lymphatic: Negative for easy bruising or excessive bleeding. Respiratory: Negative for wheezing, shortness of breath or persistent cough. Gastrointestinal: Negative for persistent abdominal pain. Negative for anorexia, persistent nausea and/or vomiting. Musculoskeletal: muscle pain, back pain, joint pain/stiffness I have confirmed and edited as necessary, the PFSH and ROS obtained by others. Celine Moore MD OBJECTIVE: Ht 5' 1" (1.55m) Wt 155 lb (70.3kg) LMP 08/31/2008 BMI 29.30 kg/(m2). General: Well appearing, alert, in no acute distress, well-hydrated, well nourished. Impression: Yvonne Lomeli is a 64 year old female with urgency incontinence, urinary urgency and frequency. Plan: Myrbetriq stopped due to increasing blood pressures Not a candidate for anticholinergic medications due to constipation and dry eyes. Reviewed and discussed OAB care pathway including 3rd line therapy options. Yvonne prefers a conservative approach. Lifestyle/behavioral modifications and pelvic floor muscle exercises reviewed. Follow up in 3 months. Celine Moore MD [facility] 08-01-2019 EUGENE Telephone (AKURFL) -------- YVONNE LOMELI ([id number]) 1955 F Date Time Provider Department 08/01/19 CELINE MOORE During your visit today, we recorded the following information about you: David Landin MA 08/01/2019 11:07 AM Signed Yvonne Lomeli called today. : 1955 Allergies: Reglan [Metoclopramide Hcl]; Doxycycline (home) [phone] (cell) Message can be left with: with patient only Reason for call: pt called in and would like to know if Mybetriq will cause her to have high blood pressure? Per pt she notice her blood pressure is higher since starting the medication. Please advise Recent Urology Surgery: None Is the patient experiencing any pain related to this call? no Any nausea/vomitting? Neither Voiding concerns: no problems w/ voiding. Patient last appointment: Visit date not found The patients preferred pharmacy has been captured for this encounter? yes David Moore MD 08/01/2019 1:28 PM Signed Myrbetriq may cause an increase in blood pressure. Her blood pressures were previously normal. What are they running now? David Landin MA 08/01/2019 2:14 PM Signed Left vm for pt to return call for below. David Bryant RN 08/02/2019 11:30 AM Signed Patient called back and states she does not remember what her Blood pressures were but had more than ond doctor tell her they were high and mentioned she would need to start a BP med if they do not come down. She was instructed to take her BP daily and record them. I instructed her to stop the Myrbetric and see if her BP comes down over the next week or so and to let us know. Eugenia Landin MA 08/05/2019 2:55 PM Signed Left vm for pt to return call for below. David Clancy CMA 08/06/2019 11:24 AM Signed Celine Moore [facility] Clinical Pool Yesterday (10:52 AM) Please call patient today and find out how her blood pressures have been running. Thanks! Celine Moore MD Spoke with pt today and and she said her BP was running 130's/80's, but its coming down. She said it was 116/76 today. Elian Moore MD 08/07/2019 12:29 PM Signed Called patient to discuss next steps in OAB management. No answer. Left message to return my call. Celine Moore MD Allergies As of Date: 08/01/2019 Noted Allergy Reaction REGLAN (METOCLOPRAMIDE HCL) 11/06/2013 7 - Swelling 14 - Other: See Comments Comments: Pt states her eyes swell when taking reglan DOXYCYCLINE 08/29/2007 8 - GI Upset Date Reviewed: 06/04/2019 Reviewed by: Celine Moore - Fully Assessed Reason for Visit: Medication Question [1478] Prescriptions as of 08/01/2019 Sig: MIRABEGRON ER 25 MG TABLET,EX* Take 1 tablet by mouth once d* HYOSCYAMINE 0.125 MG SUBLINGU* PLACE 1 (ONE) TABLET UNDER TH* CYCLOBENZAPRINE 10 MG TABLET Take 10 mg by mouth three osmin* OXYCODONE-ACETAMINOPHEN 5 MG-* Take 1 tablet by mouth every * AMITRIPTYLINE ORAL Take by mouth. ESOMEPRAZOLE MAGNESIUM 20 MG * Take 20 mg by mouth. BUSPIRONE 15 MG TABLET Take 1 tablet by mouth three * CYANOCOBALAMIN (VIT B-12) 1,0* Take 1 tablet by mouth once d* Patient not taking: Reported on 06/04/2019 ERGOCALCIFEROL (VITAMIN D2) 5* Take 1 tablet by mouth once e* Problem List As Of Date 08/01/2019 Noted Resolved Pain in limb [M79.609] 08/27/2007 05/29/2014 Ingrowing nail [L60.0] 08/27/2007 05/29/2014 Calcaneal Spur [M77.30] 06/01/2009 Abdominal Pain, Unspecified Site [R10.9] 06/16/2009 Fibromyalgia [M79.7] 05/29/2014 Gastric reflux [K21.9] 05/29/2014 H/O urinary retention [Z87.898] 07/06/2015 Polypharmacy [Z79.899] 07/06/2015 Obesity, Class I, BMI 30-34.9 [E66.9] 12/28/2018 Encounter Status:Closed by CELINE MOORE MD on 08/07/19 [facility] PROGRESSon 06-04-2019 PROGRESS HNO ID: [id number] Author: Celine Moore Service: ? Author Type: Physician Type: Progress Notes Filed: 06/04/2019 12:10 PM Note Text: VIRTUAL VISIT PROGRESS NOTE This is a virtual visit. It required patient-provider interaction for the medical decision making as documented below. Yvonne Lomeli is a 63 year old female, who presents for a follow-up of rectocele, outlet dysfunction constipation, urgency incontinence, urinary urgency and frequency. Last visit 12/28/18: -We discussed the etiology and options for management of rectocele with outlet dysfunction constipation including lifestyle/behavioral modifications (increasing fiber/fluid intake, maintaining consistent bowel movements that are soft and easy to pass, splinting technique, squatty potty), pelvic floor muscle exercises/pelvic floor physical therapy, pessary (less likely to be successful with posterior defect), and surgery (rectocele repair). I also believe that she likely has some component of slow transit constipation contributing to her symptoms given her description of her history. She is scheduled with GI for a scope later this month and we discussed that she should discuss other etiologies of her constipation with her GI doctor. She also desires to discuss stool softener/laxitive use with GI as well. Yvonne desires to try increasing fiber and lifestyle modifications for now. -Lifestyle and behavioral modifications for overactive bladder were reviewed. Symptoms are not very bothersome currently. UA with micro and urine culture sent due to abnormal urine dip. -Follow up with BEHAVIOR MANAGEMENT SPECIALIST in 2 months after scope and GI follow up. 12/28/18 UA with micro neg for microscopic hematuria, urine culture no growth History since last visit: Feels like she is doing ok, not having as much trouble with her constipation now that she is taking laxative (Sennacot-S). She had an upper GI scope done shortly after our last visit, and is planning a colonoscopy later in the year with GI (maybe in the fall). She continues to be bothered by urinary frequency, urgency, and sometimes urgency incontinence. She tried some lifestyle/behavioral modifications. She would like to try a medication. She already has problems with constipation and dry eyes so she would like to avoid medications which could worsen these issues. Urinary Incontinence: yes, a few times when drinking a lot of water and cannot make it to the bathroom in time Voiding Dysfunction: yes, occasional sensation of incomplete emptying at night, no discomfort Urinary Frequency: yes, every 1-2 hours Urinary Urgency: yes, Prolapse Symptoms: no Defecatory Dysfunction: yes, improved on laxative as above Fecal Incontinence: no Abnormal Bleeding: no Pain: no Abnormal Vaginal Discharge: no PAST SURGICAL HISTORY Procedure Laterality Date - COLONOSCOP W/ OR W/O [facility] 06/03 Colonoscopy - COLONOSCOP W/ OR W/O [facility] 11-13-13 - COLONOSCOPY 06/06 - EGD W/O OR W/BRUSH/WASH EGD - EGD W/O OR W/BRUSH/WASH 11-13-13 EGD - PAST SURGICAL HISTORY OF Removal bone spur right shoulder - PAST SURGICAL HISTORY OF 09/15/2017 removal part of colon for diverticulitis - REMOVAL GALLBLADDER Cholecystectomy - REMOVAL OF TONSILS,<12 Y/O Tonsillectomy - [facility] N/CARPAL TUNNEL SURG Carpal tunnel decomp, right - SHOULDER SURGERY HX PAST MEDICAL HISTORY Diagnosis Date - Dysthymic disorder Depression (non-psychotic) - Generalized anxiety disorder Anxiety, Generalized - Irritable bowel syndrome Irritable bowel - Myalgia and myositis, unspecified FAMILY HISTORY Problem Relation Age of Onset - Heart Mother - Hypertension Mother - Lipids Father - Diabetes Paternal Grandmother - Breast Cancer Maternal Aunt - Breast Cancer Maternal Aunt Social History Tobacco Use - Smoking status: Never Smoker - Smokeless tobacco: Never Used Substance Use Topics - Alcohol use: No - Drug use: No REVIEW OF SYSTEMS General: Negative for unintentional weight loss, fever, chills, or weakness. Skin: Negative for rash or itching. Psychiatric: Negative for depression. Reports normal stress. Neurologic: occasional headaches due to arthritis in neck Endocrine: hot flashes Cardiovascular: Negative for recent chest pain, chest pressure or chest discomfort. Hematologic/Lymphatic: Negative for easy bruising or excessive bleeding. Respiratory: Negative for wheezing, shortness of breath or persistent cough. Gastrointestinal: occasional abdominal pain in the morning Musculoskeletal: arthritis Last 14 Encounter BP Readings: Date: BP: 12/28/2018 120/78 12/03/2018 110/60 11/28/2017 120/70 07/24/2017 122/72 11/10/2016 132/84 03/11/2016 100/72 09/10/2015 126/74 08/13/2015 122/76 07/06/2015 124/74 06/25/2015 124/70 02/08/2015 122/72 05/29/2014 140/78 01/21/2014 116/68 10/29/2013 150/90 PHYSICAL EXAMINATION: VIDEO EXAM: (if completed, performed via video enabled technology) No exam performed ASSESSMENT: (N39.41) Urgency incontinence (primary encounter diagnosis) (R39.15) Urinary urgency (R35.0) Urinary frequency (K59.02) Outlet dysfunction constipation PLAN: -We reviewed and discussed the OAB care pathway. Start Myrbetriq for overactive bladder (urinary urgency, frequency, and urgency incontinence). Discussed that prior auth is required for this medication. She is not a candidate for anticholinergic medications as she has constipation and dry eyes. -Urine culture order placed for future if needed for UTI symptoms. Can go to [facility] lab in [place] to give urine specimen. -Constipation/outlet symptoms currently well controlled on laxative. -Follow up in 3 months I spent more than 25 minutes [id number]-[id number] with the patient and over half the time was devoted to counseling and/or coordination of care. It was necessary to convert the virtual visit to a telephone encounter due to technical difficulties. Celine Moore MD [facility] US ELASTOGRAPHY LIVER W/ABD LTDon 01-03-2019 US ELASTOGRAPHY LIVER W/ABD LTD ORIGINAL Ultrasound abdomen Limited with hepatic Elastography, 01/03/2019 CLINICAL INFORMATION: 63-year-old female patient with abdominal pain and abnormal liver enzymes COMPARISON: CT abdomen 03/29/2017 Liver is subjectively normal size and shows slightly greater than normal parenchymal echogenicity suggesting possible mild fatty infiltration. No focal hepatic mass or intrahepatic biliary dilatation. Common duct eron hepatis 4 mm. Gallbladder surgically absent. Pancreas is felt to be normal. RIGHT kidney 9.9 x 5.4 x 4 cm shows no acute normality. Limited visualized portions of abdominal aorta and IVC show normal caliber. No ascites. Shear wave velocity measurement were then performed RIGHT lobe liver. Median velocity 0.64 m/s. IQR is 0.10 IQR to median ratio is 0.16 (should normally be less than or equal to 0.3) Impression: Suspect mild fatty liver. Normal Shear wave velocity. No evidence of hepatic fibrosis. Interpreted By: Samuel De La Rosa MD Preliminary Report By: Samuel De La Rosa MD Electronically Signed By: Samuel De La Rosa MD Dictated Date: 01/03/2019 11:26:11 AM Prelim Date: 01/03/2019 11:26:11 AM Sign Date: 01/03/2019 11:28:45 AM Ordering Provider:Divya Neves [facility] ([place]) CNOVon 12-28-2018 CNOV Office Visit (AGUROG YN) -------- YVONNE LOMELI ([id number]) 1955 F Date Time Provider Department 12/28/18 1:00 PM CELINE MOORE During your visit today, we recorded the following information about you: Pulse Blood pressure Weight Height 67/minute 120/78 72.1 kg 1.524 m Celine Moore MD 12/28/2018 3:08 PM Signed CHIEF COMPLAINT: Yvonne Lomeli is a 63 year old female who presents for consultation requested by Anali Rico APRN.CNP for an opinion regarding rectocele. HISTORY OF PRESENT ILLNESS: Yvonne presents for evaluation of a rectocele. She has had ongoing issues with constipation and follows with GI. She is scheduled for a scope at the end of December. Has used Miralax, stool softeners, and laxatives in the past, has had to disimpact herself, does not splint but has heard of the technique. If bowel movements are soft consistency there is no issue with passing a complete BM. She does not feel a vaginal bulge. She also reports urinary urgency and urgency incontinence, but is not currently bothered by this problem because it only occurs a few times/week and has not happened in public. Urinary Incontinence: Yes with urgency 1-2 times/week Pad use - NA; Do you usually experience urine leakage related to coughing, sneezing, or laughing: no Do you usually experience urine leakage related to physical exercise such as walking, running, aerobics, or tennis: no Do you usually experience urine leakage related to lifting or bending over: no Do you usually experience urine leakage related to a feeling of urgency: yes, Leaks with: Urge Previous UI Treatment: None Voiding Dysfunction: None Urinary Urgency: yes, # of Daytime Voids: 8 per day # of Nocturic Episodes: 3 per day Dysuria: no Hematuria: no Recurrent UTI: No Nocturnal Enuresis: no Prolapse Symptoms: Do You usually have a sensation of bulging or protrusion from the vaginal area: no Do you usually have a bulge or something falling out that you can see or feel in the vaginal area: No Do you have pain associated with your prolapse (not pressure or fullness) No Previous Treatment: None Defecatory Symptoms: constipation-sees GI and has used Miralax, stool softeners, and laxatives in the past, has had to disimpact herself, does not splint but has heard of the technique Number of Bowel Movements: 4-5 per Week Fecal Incontinence: No Sexual Dysfunction: Not active FUNCTIONAL STATUS: Run a short distance (8.00 METs) 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 She has no history of an abnormal mammogram LMP: Patient's last menstrual period was 08/31/2008.; Menopause yes: Menstrual history: NA; Deliveries: PAST SURGICAL HISTORY Procedure Laterality Date - COLONOSCOP W/ OR W/O [facility] 06/03 Colonoscopy - COLONOSCOP W/ OR W/O [facility] 11-13-13 - COLONOSCOPY 06/06 - EGD W/O OR W/BRUSH/WASH EGD - EGD W/O OR W/BRUSH/WASH 11-13-13 EGD - PAST SURGICAL HISTORY OF Removal bone spur right shoulder - PAST SURGICAL HISTORY OF 09/15/2017 removal part of colon for diverticulitis - REMOVAL GALLBLADDER Cholecystectomy - REMOVAL OF TONSILS,<12 Y/O Tonsillectomy - [facility] N/CARPAL TUNNEL SURG Carpal tunnel decomp, right - SHOULDER SURGERY HX PAST MEDICAL HISTORY Diagnosis Date - Dysthymic disorder Depression (non-psychotic) - Generalized anxiety disorder Anxiety, Generalized - Irritable bowel syndrome Irritable bowel - Myalgia and myositis, unspecified FAMILY HISTORY Problem Relation Age of Onset - Heart Mother - Hypertension Mother - Lipids Father - Diabetes Paternal Grandmother - Breast Cancer Maternal Aunt - Breast Cancer Maternal Aunt SOCIAL HISTORY Social History Tobacco Use - Smoking status: Never Smoker - Smokeless tobacco: Never Used Substance Use Topics - Alcohol use: No - Drug use: No Occupation: Disability Marital Status: REVIEW OF SYSTEMS General: Negative for unintentional weight loss, fever, chills, or weakness. Skin: Negative for rash or itching. Psychiatric: Negative for depression. Reports normal stress. Neurologic: Negative for new headache or syncope. Endocrine: sweating Cardiovascular: Negative for recent chest pain, chest pressure or chest discomfort. Hematologic/Lymphatic: Negative for easy bruising or excessive bleeding. Respiratory: Negative for wheezing, shortness of breath or persistent cough. Gastrointestinal: Negative for persistent abdominal pain. Negative for anorexia, persistent nausea and/or vomiting. Musculoskeletal: muscle pain, back pain OBJECTIVE: BP 120/78 Pulse 67 Ht 5' 0" (1.52m) Wt 159 lb (72.1kg) SpO2 96% LMP 08/31/2008 BMI 31.05 kg/(m2). Physical Exam Constitutional: BMI - Body mass index is 31.05 kg/m?. General Appearance: Well appearing, alert, in no acute distress, well-hydrated, well nourished. Skin: Skin color, texture, turgor normal, no suspicious rashes or lesions Neck: Not examined Lungs: unlabored on room air Heart: no LE edema Breasts:Deferred Abdomen: Abdomen soft, non-tender. 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: Normal size anteverted uterus, No tenderness, No masses Rectovaginal: Rectocele Anal Sphincter: Anal [place]: Yes Resting Tone: Normal Squeeze Strength: 3+ out of 5 Sphincter Defect: no Levator Ani Contraction: 3+ Saddle Sensory Exam (S2-4): normal POP-Q: Prolapse Noted: Yes Aa = -2.0 Ba = -2.0 C = -5 gh = 4 pb = 3 tvl = 10 Ap = -0.5 Bp = -0.5 D = -8 Urine dip trace blood, neg leuk/nit Bladder scan PVR 39 ml by MA IMPRESSION: Yvonne Lomeli is a 63 year old female with rectocele, outlet dysfunction constipation, urgency incontinence, urinary urgency and frequency PLAN: We discussed the etiology and options for management of rectocele with outlet dysfunction constipation including lifestyle/behavioral modifications (increasing fiber/fluid intake, maintaining consistent bowel movements that are soft and easy to pass, splinting technique, squatty potty), pelvic floor muscle exercises/pelvic floor physical therapy, pessary (less likely to be successful with posterior defect), and surgery (rectocele repair). I also believe that she likely has some component of slow transit constipation contributing to her symptoms given her description of her history. She is scheduled with GI for a scope later this month and we discussed that she should discuss other etiologies of her constipation with her GI doctor. She also desires to discuss stool softener/laxitive use with GI as well. Yvonne desires to try increasing fiber and lifestyle modifications for now. Lifestyle and behavioral modifications for overactive bladder were reviewed. Symptoms are not very bothersome currently. UA with micro and urine culture sent due to abnormal urine dip. Follow up with BEHAVIOR MANAGEMENT SPECIALIST in 2 months after scope and GI follow up. Celine Moore MD My final recommendations will be communicated back to the requesting physician by way of shared Medical record or letter via US mail. Celine Moore MD 12/28/2018 2:05 PM Signed Increase fiber intake and fluids. May try a fiber supplement like Cirtucel or Metamucil. Start with a low dose and increase slowly. Drink plenty of water to avoid constipation. Follow up with your GI doctor to discuss other causes of your constipation (slow transit) and to review stool softeners/laxatives you are taking. Work on lifestyle and behavioral modifications for overactive bladder. Referring Provider: ANALI RICO ([facility]) [[id number]] Allergies As of Date: 12/28/2018 Noted Allergy Reaction REGLAN (METOCLOPRAMIDE HCL) 11/06/2013 7 - Swelling 14 - Other: See Comments Comments: Pt states her eyes swell when taking reglan DOXYCYCLINE 08/29/2007 8 - GI Upset Date Reviewed: 12/28/2018 Reviewed by: Celine Moore - Fully Assessed Reason for Visit: New Patient [172] Primary Visit Diagnosis:Rectocele [N81.6] Other Visit Diagnoses:Outlet dysfunction constipation [K59.02] Urgency incontinence [N39.41] Urinary urgency [R39.15] Urinary frequency [R35.0] Abnormal urine finding [R82.90] Obesity, Class I, BMI 30-34.9 [E66.9] Order(s):US MSR POST-VOID RESID URINE [[id number]] Order #: [id number] UA DIP, URINE (POC) [[id number]] Order #: [id number]. #:[id number] 08-LAB URINALYSIS WITH MICROSCOPIC [SQUAWMIC] Order #: [id number] URINE CULTURE [SQURCUL] Order #: [id number] Prescriptions as of 12/28/2018 Sig: CYCLOBENZAPRINE 10 MG TABLET Take 10 mg by mouth three osmin* OXYCODONE-ACETAMINOPHEN 5 MG-* Take 1 tablet by mouth every * ESOMEPRAZOLE MAGNESIUM 20 MG * Take 20 mg by mouth. BUSPIRONE 15 MG TABLET Take 1 tablet by mouth three * CYANOCOBALAMIN (VIT B-12) 1,0* Take 1 tablet by mouth once d* ERGOCALCIFEROL (VITAMIN D2) 2* Take 1 tablet by mouth once e* NYSTATIN 100,000 UNIT/GRAM TO* Apply 1 application to affect* Patient not taking: Reported on 12/03/2018 TRIAMCINOLONE ACETONIDE 0.5 %* Apply 1 application to affect* Patient not taking: Reported on 12/03/2018 HYOSCYAMINE 0.125 MG SUBLINGU* PLACE 1 (ONE) TABLET UNDER TH* FLUTICASONE PROPIONATE 50 MCG* Use 2 Sprays in each nostril * Patient not taking: Reported on 12/03/2018 AMITRIPTYLINE ORAL Take by mouth. Problem List As Of Date 12/28/2018 Noted Resolved Pain in limb [M79.609] INVALID FOR*05/29/2014 Ingrowing nail [L60.0] INVALID FOR*05/29/2014 Calcaneal Spur [M77.30] INVALID FOR* Abdominal Pain, Unspecified Site [R10.9] INVALID FOR* Fibromyalgia [M79.7] INVALID FOR* Gastric reflux [K21.9] INVALID FOR* H/O urinary retention [Z87.898] INVALID FOR* Polypharmacy [Z79.899] INVALID FOR* Obesity, Class I, BMI 30-34.9 [E66.9] INVALID FOR* Other instructions from your clinician: Increase fiber intake and fluids. May try a fiber supplement like Cirtucel or Metamucil. Start with a low dose and increase slowly. Drink plenty of water to avoid constipation. Follow up with your GI doctor to discuss other causes of your constipation (slow transit) and to review stool softeners/laxatives you are taking. Work on lifestyle and behavioral modifications for overactive bladder. Encounter Status:Closed by CELINE MOORE MD on 12/28/18 [facility] Cult Urineon 12-28-2018 Cult Urine Test performed at [facility] No growth <1,000 CFU/ml. Normal [facility] Comment on above: Performed By: #### C _URI #### [facility] [address] [place], [place] [address] HISTORY PHYSICALon 9 HISTORY PHYSICAL HNO ID: [id number] Author: Celine Moore Service: ? Author Type: Physician Type: HANDP Filed: 12/28/2018 3:08 PM Note Text: CHIEF COMPLAINT: Yvonne Lomeli is a 63 year old female who presents for consultation requested by Anali Rico APRN.CNP for an opinion regarding rectocele. HISTORY OF PRESENT ILLNESS: Yvonne presents for evaluation of a rectocele. She has had ongoing issues with constipation and follows with GI. She is scheduled for a scope at the end of December. Has used Miralax, stool softeners, and laxatives in the past, has had to disimpact herself, does not splint but has heard of the technique. If bowel movements are soft consistency there is no issue with passing a complete BM. She does not feel a vaginal bulge. She also reports urinary urgency and urgency incontinence, but is not currently bothered by this problem because it only occurs a few times/week and has not happened in public. Urinary Incontinence: Yes with urgency 1-2 times/week Pad use - NA; Do you usually experience urine leakage related to coughing, sneezing, or laughing: no Do you usually experience urine leakage related to physical exercise such as walking, running, aerobics, or tennis: no Do you usually experience urine leakage related to lifting or bending over: no Do you usually experience urine leakage related to a feeling of urgency: yes, Leaks with: Urge Previous UI Treatment: None Voiding Dysfunction: None Urinary Urgency: yes, # of Daytime Voids: 8 per day # of Nocturic Episodes: 3 per day Dysuria: no Hematuria: no Recurrent UTI: No Nocturnal Enuresis: no Prolapse Symptoms: Do You usually have a sensation of bulging or protrusion from the vaginal area: no Do you usually have a bulge or something falling out that you can see or feel in the vaginal area: No Do you have pain associated with your prolapse (not pressure or fullness) No Previous Treatment: None Defecatory Symptoms: constipation-sees GI and has used Miralax, stool softeners, and laxatives in the past, has had to disimpact herself, does not splint but has heard of the technique Number of Bowel Movements: 4-5 per Week Fecal Incontinence: No Sexual Dysfunction: Not active FUNCTIONAL STATUS: Run a short distance (8.00 METs) 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 She has no history of an abnormal mammogram LMP: Patient's last menstrual period was 08/31/2008.; Menopause yes: Menstrual history: NA; Deliveries: PAST SURGICAL HISTORY Procedure Laterality Date - COLONOSCOP W/ OR W/O [facility] 06/03 Colonoscopy - COLONOSCOP W/ OR W/O [facility] 11-13-13 - COLONOSCOPY 06/06 - EGD W/O OR W/BRUSH/WASH EGD - EGD W/O OR W/BRUSH/WASH 11-13-13 EGD - PAST SURGICAL HISTORY OF Removal bone spur right shoulder - PAST SURGICAL HISTORY OF 09/15/2017 removal part of colon for diverticulitis - REMOVAL GALLBLADDER Cholecystectomy - REMOVAL OF TONSILS,<12 Y/O Tonsillectomy - [facility] N/CARPAL TUNNEL SURG Carpal tunnel decomp, right - SHOULDER SURGERY HX PAST MEDICAL HISTORY Diagnosis Date - Dysthymic disorder Depression (non-psychotic) - Generalized anxiety disorder Anxiety, Generalized - Irritable bowel syndrome Irritable bowel - Myalgia and myositis, unspecified FAMILY HISTORY Problem Relation Age of Onset - Heart Mother - Hypertension Mother - Lipids Father - Diabetes Paternal Grandmother - Breast Cancer Maternal Aunt - Breast Cancer Maternal Aunt SOCIAL HISTORY Social History Tobacco Use - Smoking status: Never Smoker - Smokeless tobacco: Never Used Substance Use Topics - Alcohol use: No - Drug use: No Occupation: Disability Marital Status: REVIEW OF SYSTEMS General: Negative for unintentional weight loss, fever, chills, or weakness. Skin: Negative for rash or itching. Psychiatric: Negative for depression. Reports normal stress. Neurologic: Negative for new headache or syncope. Endocrine: sweating Cardiovascular: Negative for recent chest pain, chest pressure or chest discomfort. Hematologic/Lymphatic: Negative for easy bruising or excessive bleeding. Respiratory: Negative for wheezing, shortness of breath or persistent cough. Gastrointestinal: Negative for persistent abdominal pain. Negative for anorexia, persistent nausea and/or vomiting. Musculoskeletal: muscle pain, back pain OBJECTIVE: BP 120/78 Pulse 67 Ht 5' 0" (1.52m) Wt 159 lb (72.1kg) SpO2 96% LMP 08/31/2008 BMI 31.05 kg/(m2). Physical Exam Constitutional: BMI - Body mass index is 31.05 kg/m?. General Appearance: Well appearing, alert, in no acute distress, well-hydrated, well nourished. Skin: Skin color, texture, turgor normal, no suspicious rashes or lesions Neck: Not examined Lungs: unlabored on room air Heart: no LE edema Breasts:Deferred Abdomen: Abdomen soft, non-tender. 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: Normal size anteverted uterus, No tenderness, No masses Rectovaginal: Rectocele Anal Sphincter: Anal [place]: Yes Resting Tone: Normal Squeeze Strength: 3+ out of 5 Sphincter Defect: no Levator Ani Contraction: 3+ Saddle Sensory Exam (S2-4): normal POP-Q: Prolapse Noted: Yes Aa = -2.0 Ba = -2.0 C = -5 gh = 4 pb = 3 tvl = 10 Ap = -0.5 Bp = -0.5 D = -8 Urine dip trace blood, neg leuk/nit Bladder scan PVR 39 ml by MA IMPRESSION: Yvonne Lomeli is a 63 year old female with rectocele, outlet dysfunction constipation, urgency incontinence, urinary urgency and frequency PLAN: We discussed the etiology and options for management of rectocele with outlet dysfunction constipation including lifestyle/behavioral modifications (increasing fiber/fluid intake, maintaining consistent bowel movements that are soft and easy to pass, splinting technique, squatty potty), pelvic floor muscle exercises/pelvic floor physical therapy, pessary (less likely to be successful with posterior defect), and surgery (rectocele repair). I also believe that she likely has some component of slow transit constipation contributing to her symptoms given her description of her history. She is scheduled with GI for a scope later this month and we discussed that she should discuss other etiologies of her constipation with her GI doctor. She also desires to discuss stool softener/laxitive use with GI as well. Yvonne desires to try increasing fiber and lifestyle modifications for now. Lifestyle and behavioral modifications for overactive bladder were reviewed. Symptoms are not very bothersome currently. UA with micro and urine culture sent due to abnormal urine dip. Follow up with BEHAVIOR MANAGEMENT SPECIALIST in 2 months after scope and GI follow up. Celine Moore MD My final recommendations will be communicated back to the requesting physician by way of shared Medical record or letter via [place] mail. Normal [facility] Urinalysis Routineon 019 Bacteria LM.HPF (Urine sed) [#/Area] NONE Normal None [facility] Comment on above: Performed By: #### U RIN2 #### [place] [address] Ep Cells Urine 0.1 /hpf Normal 0.0-5.0 [facility] Comment on above: Performed By: #### U RIN2 #### [place] [address] Hyaline Cast 0.0 /lpf Normal 0.0-1.0 [facility] Comment on above: Performed By: #### U RIN2 #### [place] [address] RBC LM.HPF (Urine sed) [#/Area] 0.7 /[HPF] Normal 0.0-5.0 [facility] Comment on above: Performed By: #### U RIN2 #### [place] [address] WBC LM.HPF (Urine sed) [#/Area] 0.1 /[HPF] Normal 0.0-5.0 [facility] Comment on above: Performed By: #### U RIN2 #### [place] [address] Appearance (U) CLEAR Normal [facility] Comment on above: Performed By: #### U RIN2 #### [place] [address] Bilirubin (U) [Mass/Vol] Negative Normal Negative [facility] Comment on above: Performed By: #### U RIN2 #### [facility] [address] [place] [address] Color (U) YELLOW Normal [facility] Comment on above: Performed By: #### U RIN2 #### [facility] [address] [place] [address] Glucose Ql (U) Negative Normal Negative [facility] Comment on above: Performed By: #### U RIN2 #### [facility] [address] [place] [address] Hemoglobin,Urine Negative Normal Negative [facility] Comment on above: Performed By: #### U RIN2 #### [facility] [address] [place] [address] Ketone Urine Negative Normal Negative [facility] Comment on above: Performed By: #### U RIN2 #### [facility] [address] [place] [address] Leukocytes Esterase Negative Normal Negative [facility] Comment on above: Performed By: #### U RIN2 #### [facility] [address] [place] [address] Nitrites Urine Negative Normal Negative [facility] Comment on above: Performed By: #### U RIN2 #### [facility] [address] [place] [address] pH (U) 6.5 [pH] Normal 5.0-8.0 [facility] Comment on above: Performed By: #### U RIN2 #### [facility] [address] [place] [address] Protein (U) [Mass/Vol] Negative Normal Negative [facility] Comment on above: Performed By: #### U RIN2 #### [facility] [address] [place] [address] Specific [place], Ur 1.011 Normal 1.005-1.030 [facility] Comment on above: Performed By: #### U RIN2 #### [facility] [address] [place] [address] Urobilinogen,Ur 0.2 EU/dL Normal 0.2-1.0 [facility] Comment on above: Performed By: #### U RIN2 #### [facility] [address] [place] [id number] CBCon 09-17-2017 Erythrocyte distribution width Auto Ratio (RBC) 12.5 % Normal 11-14.5 [facility] Comment on above: Order Comment: Campu s: M Performed By: #### L 500.25886, L500.31467 ####[facility] [id number] [place], [place] [address]Dj# [phone] Hematocrit Auto Volume Fraction (Bld) 31.5 % Low 35.0-47.0 [facility] Comment [facility] above: Order Comment: Campu s: M Performed By: #### L 500.06929, L500.96337 ####[address] [address]Oa# [phone] Hemoglobin mass conc (Bld) 10.6 g/dL Low 11.5-15.5 [facility] Comment on above: Order Comment: Campu s: M Performed By: #### L 500.40953, L500.45608 ####[facility] [id number] [place] [address]Yy# [phone] MCHC Auto mass conc (RBC) 33.7 g/dL Normal 32.0-36.0 [facility] Comment on above: Order Comment: Campu s: M Performed By: #### L 500.90856, L500.01349 ####[facility] [id number] [place] [address]Bb# [phone] MCV Auto Entitic volume (RBC) 94.6 fL Normal 80.0-99.0 [facility] Comment on above: Order Comment: Campu s: M Performed By: #### L 500.51084, L500.86059 ####[facility] [id number] [place] [address]Zz# [phone] Nucleated RBC/100 WBC Ratio (Bld) 0.0 % Normal Less than 1 [facility] Comment on above: Order Comment: Campu s: M Performed By: #### L 500.28005, L500.87338 ####[facility] [id number] [place], [place] [address]Pd# [phone] Platelet mean volume Auto Entitic volume (Bld) 11.6 fL Normal 9.4-12.4 [facility] Comment on above: Order Comment: Campu s: M Performed By: #### L 500.74416, L500.26359 ####[place] [id number]# [phone] Platelets Auto #/vol (Bld) 163 K/CU MM Normal 150-450 [facility] Comment on above: Order Comment: Campu s: M Performed By: #### L 500.85988, L500.72969 ####[address] [address]Jv# [phone] RBC Auto #/vol (Bld) 3.33 M/CU MM Low 3.90-5.30 [facility] Comment on above: Order Comment: Campu s: M Performed By: #### L 500.43303, L500.23543 ####[address] [address]Cy# [phone] WBC Auto #/vol (Bld) 11.0 K/CU MM Normal 4.5-11.0 [facility] Comment on above: Order Comment: Campu s: M Performed By: #### L 500.76778, L500.29483 ####[place] [id number]# [phone] PROG.NOTEon 09-17-2017 Protein mass conc [facility] Patient Name: YVONNE LOMELI [id number] [facility] Date of : [address] [address] Unit Number: [id number] Number: [id number] Note-Physician Patient Status: ADM INAttending Doctor: Parker Giang MDService Date: 09/17/17 1013SubjectiveS: (2 ROS minimum)Patient ambulating in hallway, complains of some abdominal soreness. Denies n/v,tolerating soft diet, not sure she would like to have solid food yet. Pain meds helping.Passing gas, no bowel movement yet.Objective (ROS)Nursing VitalsVital Signs (Last)ResultDate TimePulse As2376/ 0750B/P144/5507/22 4871Lxgl52.107/22 3881Mchvb6322/22 6123Gsqt5581/22 0750General Appearancewell, no acute distressPhysical ExamNeurological / Psychiatric Alert, Orientation X3, Affect NormalHEENT No Trauma, EOMIRespiratory Normal Breathing EffortCardiovascular Heart RRRGastrointestinal soft, nondistended, appropriately tenderMusculoskeletal No EdemaSkin No RashDiagnostic Data:Lab 24hr (CBC/BMP Juan Davidbonalicia)09/17/17 0411:[Embedded Image Not Available]RBC 3.33 L, MCV 94.6, MCHC 33.7, RDW 12.5, MPV 11.6, Nucleated RBCs 0.0Assessment and PlanConclusion1. Hx of diverticulitis of colon2. IBS (irritable bowel syndrome)3. Postoperative afceUdfq23R doing well POD2 robot assisted laparoscopic sigmoid colectomy for recurrentdiverticulitis. Tolerating full liquid/mechanical soft diet, passing gas but no bowelmovement yet. Miralax started yesterday. Encouraged ambulation.Stable ProblemsProblems not specifically addressed in the above plan are stable and do not warrantadjustment of the current method of therapy.DisclaimerThis dictation was created using voice recognition software.Phonetic and/or minor grammatical errors may exist.eSign Date and TimePristasYvonne DO Verified/Reviewed by 09/17/17 1015 Normal [facility] Protein mass conc Normal [facility] BMPon 09-16-2017 Anion gap 3 molar conc 9 mmol/L Normal 5-16 [facility] Comment on above: Order Comment: Osmar s: M Performed By: #### L 500.38920, L500.67707 ####[facility] [id number] [place], [place] [address]Jz# [phone] Calcium mass conc 7.9 mg/dL Low 8.5-10.1 [facility] Comment on above: Order Comment: Campu s: M Performed By: #### L 500.50713, L500.84977 ####[facility] [id number] [place], [place] [address]Hf# [phone] Chloride molar conc 108 mmol/L High 98-107 [facility] Comment on above: Order Comment: Campu s: M Performed By: #### L 500.07581, L500.63195 ####[facility] [id number] [place], [place] [address]Ef# [phone] CO2 molar conc 25 mmol/L Normal 21-32 [facility] Comment on above: Order Comment: Campu s: M Performed By: #### L 500.67015, L500.46399 ####[facility] [id number] [place], [place] [address]Rf# [phone] Creatinine mass conc 0.759 mg/dL Normal 0.510-0.950 [facility] Comment on above: Order Comment: Campu s: M Result Comment: Maida ents receiving either N-Acetylcysteine (NAC) orMetamizole prior to venipuncture, may have falsely depressedresults. Performed By: #### L 500.45710, L500.85028 ####[facility] [id number] [place], [place] [address]Fu# [phone] Glucose mass conc 103 mg/dL High 70-100 [facility] Comment on above: Order Comment: Campu s: M Result Comment: 70-1 00- Normal Fasting; 100-125 Impaired Fasting; greaterthan 126 on more than one result- Diabetes. ADA guidelines.Results may be falsely elevated after the administration ofSulfapyridine.Results may be falsely depressed after the administration ofSulfasalazine. Performed By: #### L 500.95172, L500.34777 ####[facility] [id number] [place], [place] [address]Jt# [phone] Potassium molar conc 4.0 mmol/L Normal 3.5-5.1 [facility] [place] Comment on above: Order Comment: Campu s: M Performed By: #### L 500.87351, L500.93179 ####[facility] [id number] [place] [address]Ow# [phone] Sodium molar conc 142 mmol/L Normal 136-145 [facility] Comment on above: Order Comment: Campu s: M Performed By: #### L 500.87668, L500.08285 ####[facility] [id number] [place] [address]Bb# [phone] Urea nitrogen mass conc 8 mg/dL Normal 7-26 M [facility] Comment on above: Order Comment: Campu s: M Performed By: #### L 500.79560, L500.76458 ####[address] [address]Ww# [phone] Urea nitrogen/Creatinine mass ratio 11 mg/mg Low 15-24 [facility] Comment on above: Order Comment: Campu s: M Performed By: #### L 500.34481, L500.78865 ####[facility] [id number] [place] [address]Np# [phone] CBC W/DIFFon 09-16-2017 BASO ABS 0.00 K/CU MM Normal 0-0.2 [facility] Comment on above: Order Comment: Campu s: M Performed By: #### L 200.84245 ####[facility] [id number] [place] [address]Ty# [phone] Basophils/100 WBC Auto (Bld) 0.2 % Normal 0-2 [facility] Comment on above: Order Comment: Campu s: M Performed By: #### L 200.49132 ####[facility] [id number] [place] [address]Vq# [phone] EOS ABS 0.00 K/CU MM Normal 0-0.5 [facility] Comment on above: Order Comment: Campu s: M Performed By: #### L 200.31060 ####[facility] [id number] [place], [place] [address]Iy# [phone] Eosinophils/100 WBC Auto (Bld) 0.0 % Normal 0-5 [facility] Comment on above: Order Comment: Campu s: M Performed By: #### L 200.73656 ####[facility] [id number] [place], [place] [address]Ph# [phone] Erythrocyte distribution width Auto Ratio (RBC) 12.2 % Normal 11-14.5 [facility] Comment on above: Order Comment: Campu s: M Performed By: #### L 200.55967 ####[place] [address]Ph# [phone] Hematocrit Auto Volume Fraction (Bld) 35.0 % Normal 35.0-47.0 [facility] Comment on above: Order Comment: Campu s: M Performed By: #### L 200.94440 ####[place] [address]Ph# [phone] Hemoglobin mass conc (Bld) 12.0 g/dL Normal 11.5-15.5 [facility] Comment on above: Order Comment: Campu s: M Performed By: #### L 200.40047 ####[facility] [id number] [address] [place], [place] [address]Ph# [phone] IMMATR GRAN ABS 0.20 K/CU MM Normal Less than 2 [facility] Comment on above: Order Comment: Campu s: M Performed By: #### L 200.14467 ####[facility] FEVKEMJYHO[address] [place] [address]Gw# [phone] IMMATURE GRAN % 1.1 % Normal Less than 2 [facility] Comment on above: Order Comment: Campu s: M Performed By: #### L 200.85929 ####[facility] BNYQKSNBUA[address] [place], [place] [address]Ph# [phone] Lymphocytes Auto #/vol (Bld) 2.40 K/CU MM Normal 0.9-4.4 [facility] Comment on above: Order Comment: Campu s: M Performed By: #### L 200.60017 ####[facility] RKIPFHSVOH[address] [place], [place] [address]Ph# [phone] Lymphocytes/100 WBC Auto (Bld) 16.1 % Low 20-40 [facility] Comment on above: Order Comment: Campu s: M Performed By: #### L 200.60357 ####[facility] VXKRBARCFG[address] [place], [place] [address]Ph# [phone] MCHC Auto mass conc (RBC) 34.3 g/dL Normal 32.0-36.0 [facility] Comment [facility] above: Order Comment: Campu s: M Performed By: #### L 200.85759 ####[address]# [phone] MCV Auto Entitic volume (RBC) 92.6 fL Normal 80.0-99.0 [facility] Comment on above: Order Comment: Campu s: M Performed By: #### L 200.23648 ####[facility] EPMVONDLRW[address] [place], [place] [address]Ph# [phone] MONO ABS 1.40 K/CU MM High 0.1-1.1 [facility] Comment on above: Order Comment: Campu s: M Performed By: #### L 200.25969 ####[facility] NJCGDWJVPL[address]87[address] [place], [place] [address]Ph# [phone] Monocytes/100 WBC Auto (Bld) 9.3 % Normal 2-10 [facility] Comment on above: Order Comment: Campu s: M Performed By: #### L 200.06206 ####[facility] SCAVQKIDYN4615[address] [place], [place] [address]Ph# [phone] NEUTROPHIL ABS 10.90 K/CU MM High 2.0-8.3 [facility] Comment on above: Order Comment: Campu s: M Performed By: #### L 200.99842 ####[facility] SFMKGCYRWW1685 [place], [place] [address]Fb# [phone] Neutrophils/100 WBC Auto (Bld) 73.3 % Normal 45-75 [facility] Comment on above: Order Comment: Campu s: M Performed By: #### L 200.31849 ####[facility] VPLYCQTSLP1628 [place], [place] [address]Cj# [phone] Nucleated RBC/100 WBC Ratio (Bld) 0.0 % Normal Less than [address] [facility] Comment on above: Order Comment: Campu s: M Performed By: #### L 200.86859 ####[facility] OZEYMQCVCZ1150 [place], [place] [address]Ew# [phone] Platelet mean volume Auto Entitic volume (Bld) 11.5 fL Normal 9.4-12.4 [facility] Comment on above: Order Comment: Campu s: M Performed By: #### L 200.70620 ####[facility] KQDHWIBBEW[address] [place] [address]Eu# [phone] Platelets Auto #/vol (Bld) 194 K/CU MM Normal 150-450 [facility] Comment on above: Order Comment: Campu s: M Performed By: #### L 200.98220 ####[facility] ZTJAGVUZSE[address] [place] [address]Ux# [phone] RBC Auto #/vol (Bld) 3.78 M/CU MM Low 3.90-5.30 [facility] Comment on above: Order Comment: Campu s: M Performed By: #### L 200.82605 ####[facility] UJVQSUDLTH3282 [place], [place] [address]Ir# [phone] WBC Auto #/vol (Bld) 14.9 K/CU MM High 4.5-11.0 [facility] Comment on above: Order Comment: Campu s: M Performed By: #### L 200.17434 ####[place] [place], [place] [address]Ee# [phone] GFR ESTon 09-16-2017 IF AMER Greater than 60 Normal [facility] [place] Comment on above: Order Comment: Campu s: M Performed By: #### L 500.82233, L500.50784 ####[facility] EUCAIFMUMY7302 [place], [place] [address]Vm# [phone] IF non-AFR AMER Greater than 60 Normal [facility] [place] Comment on above: Order Comment: Campu s: M Performed By: #### L 500.69242, L500.65795 ####[facility] XEPONHLEJG[address] [place] [address]Uz# [phone] IONIZED CAon 09-16-2017 IONIZED CA 1.18 MMOL/L Normal 1.12-1.32 [facility] Comment on above: Order Comment: Campu s: M Performed By: #### L 500.30203, L500.18346 ####[facility] LBZPGHPLDV[address] [place] [address]Tb# [phone] MAGNESIUMon 09-16-2017 Magnesium mass conc 2.1 mg/dL Normal 1.6-2.6 [facility] Comment on above: Order Comment: Campu s: M Performed By: #### L 500.81314, L500.03765 ####[facility] KODXVNZGHF[address] [place] [address]Hi# [phone] PHOSon 09-16-2017 Phosphate mass conc 3.6 mg/dL Normal 2.5-4.9 [facility] Comment on above: Order Comment: Campu s: M Performed By: #### L 500.73870, L500.19198 ####[facility] WSWKROIUUS[address] [place] [address]Rn# [phone] PROG.NOTEon 09-16-2017 Protein mass conc [facility] Patient Name: YVONNE LOMELI [id number] [facility] Date of : [address] [address] Unit Number: [id number] Number: [id number] Note-Physician Patient Status: ADM INAttending Doctor: Parker Giang MDService Date: 09/16/17 170SubjectiveS: (2 ROS minimum)Patient resting comfortably in bed, states the full liquid diet has gone well, denies n/v.Pain controlled. States she feels like she needs to pass gas.Objective (ROS)Nursing VitalsVital Signs (Last)ResultDate TimePulse Ki7005/21 1505B/P119/4007/21 3560Vjjv91.807/21 0943Fawpk7097/21 4988Kwyr3962/21 1505General Appearancewell, no acute distressPhysical ExamNeurological / Psychiatric Alert, Orientation X3, Affect NormalHEENT No Trauma, EOMIRespiratory Normal Breathing EffortCardiovascular Heart RRRGastrointestinal soft, nondistended, appropriately tender, incisions intactMusculoskeletal No EdemaSkin No RashDiagnostic Data:Lab 24hr (CBC/BMP [facility])09/16/17 0542:[Embedded Image Not Available]Anion Gap 9, Est GFR ( Amer) Greater than 60, Est GFR (Non-Af Amer) Greater than 60, BUN/Creatinine Ratio 11 L, Glucose 103 H, Total Calcium 7.9 L, Ionized Calcium 1.18,Phosphorus 3.6, Magnesium 2.1, RBC 3.78 L, MCV 92.6, MCHC 34.3, RDW 12.2, MPV 11.5,Immature Gran % (Auto) 1.1, Abs Immat Gran (auto) 0.20, Seg Neutrophils % 73.3,Lymphocytes % 16.1 L, Monocytes % 9.3, Eosinophils % 0.0, Basophils % 0.2, Neutrophils #10.90 H, Lymphocytes # 2.40, Monocytes # 1.40 H, Eosinophils # 0.00, Basophils # 0.00,Nucleated RBCs 0.0Assessment and PlanConclusion1. Hx of diverticulitis of colon2. IBS (irritable bowel syndrome)3. Postoperative [id number] doing well POD1 robot assisted laparoscopic sigmoid colectomy for recurrentdiverticulitis. Tolerating full liquid/mechanical soft diet. She is pulling >1500 on IS.Encouraged ambulation, will start miralax given history of constipation at patient'srequest. Repeat CBC in AM to trend WBC.Stable ProblemsProblems not specifically addressed in the above plan are stable and do not warrantadjustment of the current method of therapy.DisclaimerThis dictation was created using voice recognition software.Phonetic and/or minor grammatical errors may exist.eSign Date and TimePristasYvonne DO Verified/Reviewed by 09/16/17 1709 Normal [facility] Protein mass conc Normal [facility] ABGPEGon 09-15-2017 ABG BE -3.2 MMOL/L Low -2.0-2.0 [facility] Comment on above: Performed By: #### L 100.17226 ####[facility] GMWGJJFARH4106 [place], [place] [address]Si# [phone] ABG COHBA 0.8 % Normal 0-10 [facility] Comment on above: Performed By: #### L 100.56625 ####[facility] OXNWLMRBMW6592 [place], [place] [address]Hq# [phone] ABG GLU 157 MG/DL High 85-125 [facility] Comment on above: Performed By: #### L 100.98881 ####[facility] ZQLCSSIYMQ9735 [place], [place] [address]Zy# [phone] ABG HCO3 21.7 MMOL/L Low 22-26 [facility] Comment on above: Performed By: #### L 100.25540 ####[facility] STXBSMTFAQ1772 [place], [place] [address]Uv# [phone] ABG MET 0.2 % Low 0.4-1.5 [facility] Comment on above: Performed By: #### L 100.36899 ####[facility] OFEUJHXJCO2608 [place], [place] [address]Dg# [phone] ABG O2 CAPACITY 19.1 mL/dL Normal [facility] Comment on above: Performed By: #### L 100.46833 ####[facility] XFBPPFCDUZ2789 [place], [place] [address]Bk# [phone] ABG PCO2 35.6 MMHG Normal 35-45 [facility] Comment on above: Performed By: #### L 100.05037 ####[facility] YLYHJNQXBS1291 [place], [place] [address]Fn# [phone] ABG PH 7.39 Normal 7.35-7.45 [facility] Comment on above: Performed By: #### L 100.52195 ####[facility] [address]QMRKGJS[address] [place] [address]Kh# [phone] ABG PO2 177 MMHG High 80-100 [facility] Comment on above: Performed By: #### L 100.72945 ####[address] [address]Gw# [phone] LINETTE TEST UNKNOWN Normal [facility] Comment on above: Performed By: #### L 100.10591 ####[facility] FMRAOHLSHG[address] [place] [address]Gd# [phone] aPTT Coag time (Bld) 35.0 C Normal [facility] [place] Comment on above: Performed By: #### L 100.53032 ####[facility] ABHONFBUGW1354 [place], [place] [address]Ay# [phone] EQUIPMENT ABG FROM OR Normal [facility] Comment on above: Performed By: #### L 100.95275 ####[facility] GDVFVCUGKE[address] [place] [address]Zz# [phone] FIO2 55 % Normal [facility] Comment on above: Performed By: #### L 100.25075 ####[facility] [address]YSVNGIAE[address] [place] [address]Rm# [phone] Hemoglobin mass conc (Bld) 0.7 % Normal 0-5 [facility] Comment on above: Performed By: #### L 100.38701 ####[facility] HNZLJXTPLT[address] [place] [address]Ph# [phone] Hemoglobin mass conc (Bld) 13.9 g/dL Normal 11.5-15.5 [facility] Comment on above: Performed By: #### L 100.51504 ####[facility] MIZXGOEVIO1058 [place], [place] [address]Ha# [phone] IONIZED CA 1.11 MMOL/L Low 1.13-1.32 [facility] Comment on above: Performed By: #### L 100.91246 ####[facility] GDMPHQDUNE5058 [place], [place] [address]Cz# [phone] Potassium molar conc 3.7 mmol/L Normal 3.5-5.0 [facility] [place] Comment on above: Performed By: #### L 100.46732 ####[facility] UJKVYSRTJQ2935 [place], [place] [address]Mz# [phone] SAMPLE SITE UNKNOWN Normal [facility] Comment on above: Performed By: #### L 100.97552 ####[facility] X[address]KIJJSLKY[address] [place] [address]Oj# [phone] SAMPLE TYPE ARTERIAL Normal [facility] Comment on above: Performed By: #### L 100.92609 ####[facility] FFKTEGMMFQ2555 [place], [place] [address]Xm# [phone] Sodium molar conc 137 mmol/L Normal 136-148 [facility] Comment on above: Performed By: #### L 100.79590 ####[facility] DMSPOPCHWH[address] [place] [address]Wj# [phone] ABG BE -2.5 MMOL/L Low -2.0-2.0 [facility] Comment on above: Performed By: #### L 100.08654 ####[facility] DFTFMAJRAG[address] [place] [address]Ym# [phone] ABG COHBA 0.7 % Normal 0-10 [facility] Comment on above: Performed By: #### L 100.45737 ####[facility] WFMKBZALAN[address] [place] [address]Lw# [phone] ABG GLU 162 MG/DL High 85-125 [facility] Comment on above: Performed By: #### L 100.47807 ####[facility] JEWOMODLDI1385 [place], [place] [address]Zg# [phone] ABG HCO3 21.7 MMOL/L Low 22-26 [facility] Comment on above: Performed By: #### L 100.26250 ####[facility] UFVGJKXWIM9972 [place], [place] [address]Eb# [phone] ABG MET 0.1 % Low 0.4-1.5 [facility] Comment on above: Performed By: #### L 100.16972 ####[facility] HKNSPBCEJU2029 [place], [place] [address]Dw# [phone] ABG O2 CAPACITY 19.4 mL/dL Normal [facility] Comment on above: Performed By: #### L 100.54659 ####[facility] LFVUGAQJEX0569 [place], [place] [address]Zt# [phone] ABG PCO2 32.9 MMHG Low 35-45 [facility] Comment on above: Performed By: #### L 100.54345 ####[facility] HFXFOUDDSO7727 [place], [place] [address]Vl# [phone] ABG PH 7.43 Normal 7.35-7.45 [facility] Comment on above: Performed By: #### L 100.00400 ####[facility] IZEBXBWKMX3496 [place], [place] [address]Kf# [phone] ABG PO2 182 MMHG High 80-100 [facility] Comment on above: Performed By: #### L 100.35566 ####[facility] GZLOSDKADS[address] [place] [address]Oq# [phone] LINETTE TEST UNKNOWN Normal [facility] Comment on above: Performed By: #### L 100.31697 ####[facility] UBSKOCWECJ[address] [place] [address]Wq# [phone] aPTT Coag time (Bld) 34.9 C Normal [facility] [place] Comment on above: Performed By: #### L 100.73562 ####[facility] FQNOVLSRHS3067 [place], [place] [address]Yz# [phone] EQUIPMENT ABG FROM OR Normal [facility] Comment on above: Performed By: #### L 100.61293 ####[facility] OQVZXCXWNN2632 [place], [place] [address]Wu# [phone] FIO2 55 % Normal [facility] Comment on above: Performed By: #### L 100.55554 ####[facility] SLYONPKTVP5311 [place], [place] [address]Ej# [phone] Hemoglobin mass conc (Bld) 14.1 g/dL Normal 11.5-15.5 [facility] Comment on above: Performed By: #### L 100.56874 ####[facility] MPNLCZGWMZ6235 [place], [place] [address]Nw# [phone] Hemoglobin mass conc (Bld) 0.7 % Normal 0-5 [facility] Comment on above: Performed By: #### L 100.36716 ####[facility] YJJFMSDBHR0082 [place], [place] [address]Ak# [phone] IONIZED CA 1.12 MMOL/L Low 1.13-1.32 [facility] Comment on above: Performed By: #### L 100.57857 ####[facility] WELTTIWXSV0183 [place], [place] [address]Dr# [phone] Potassium molar conc 3.4 mmol/L Low 3.5-5.0 [facility] [place] Comment on above: Performed By: #### L 100.81889 ####[facility] QRYNZDPQJQ3522 [place], [place] [address]Ur# [phone] SAMPLE SITE UNKNOWN Normal [facility] Comment on above: Performed By: #### L 100.26362 ####[facility] EAMPCRHIAV1207 [place], [place] [address]Ai# [phone] SAMPLE TYPE ARTERIAL Normal [facility] Comment on above: Performed By: #### L 100.29205 ####[facility] OVMCEFRDIY4491 [place], [place] [address]Wq# [phone] Sodium molar conc 137 mmol/L Normal 136-148 [facility] Comment on above: Performed By: #### L 100.03229 ####[facility] HLRBJORDDI[address] [place] [address]Ck# [phone] BMPon 09-15-2017 Anion gap 3 molar conc 9 mmol/L Normal 5-16 [facility] Comment on above: Order Comment: Campu s: M Performed By: #### L 500.96420, L500.37159 ####[address] [address]Rs# [phone] Calcium mass conc 9.5 mg/dL Normal 8.5-10.1 [facility] Comment on above: Order Comment: Campu s: M Performed By: #### L 500.01150, L500.56988 ####[facility] UIYDHCXCZO[address] [place] [address]Pw# [phone] Chloride molar conc 103 mmol/L Normal 98-107 [facility] Comment on above: Order Comment: Campu s: M Performed By: #### L 500.63694, L500.17689 ####[facility] DFDIFZHEVZ27[address] [place] [address]Qj# [phone] CO2 molar conc 26 mmol/L Normal 21-32 [facility] Comment on above: Order Comment: Campu s: M Performed By: #### L 500.29054, L500.92737 ####[facility] FHSFNIYNNP314[address] [place] [address]Zx# [phone] Creatinine mass conc 0.945 mg/dL Normal 0.510-0.950 [facility] Comment on above: Order Comment: Campu s: M Result Comment: Maida ents receiving either N-Acetylcysteine (NAC) orMetamizole prior to venipuncture, may have falsely depressedresults. Performed By: #### L 500.51892, L500.90318 ####[facility] FCMMFHSEDG8585 [place], [place] [address]Ej# [phone] Glucose mass conc 125 mg/dL High 70-100 [facility] Comment on above: Order Comment: Campu s: M Result Comment: 70-1 00- Normal Fasting; 100-125 Impaired Fasting; greaterthan 126 on more than one result- Diabetes. ADA guidelines.Results may be falsely elevated after the administration ofSulfapyridine.Results may be falsely depressed after the administration ofSulfasalazine. Performed By: #### L 500.35860, L500.95661 ####[facility] JTNBYZXXBO2504 [place], [place] [address]Ov# [phone] Potassium molar conc 3.7 mmol/L Normal 3.5-5.1 [facility] Comment on above: Order Comment: Campu s: M Performed By: #### L 500.20007, L500.01392 ####[facility] KIYKLZFJZU2824 [place], [place] [address]Dc# [phone] Sodium molar conc 138 mmol/L Normal 136-145 [facility] Comment on above: Order Comment: Campu s: M Performed By: #### L 500.95730, L500.42680 ####[facility] MZZWAIRACC8216 [place], [place] [address]Jx# [phone] Urea nitrogen mass conc 12 mg/dL Normal 7-26 [facility] Comment on above: Order Comment: Campu s: M Performed By: #### L 500.23898, L500.38251 ####[facility] HIOXAITTPV2575 [place], [place] [address]Ey# [phone] Urea nitrogen/Creatinine mass ratio 13 mg/mg Low 15-24 [facility] Comment on above: Order Comment: Campu s: M Performed By: #### L 500.92909, L500.95257 ####[facility] CRGWDNFOQC9162 [place], [place] [address]Zs# [phone] CBC W/DIFFon 09-15-2017 BASO ABS 0.10 K/CU MM Normal 0-0.2 [facility] Comment on above: Order Comment: Campu s: M Performed By: #### L 200.70831 ####[facility] HLRLGFUMYR8[address] [place] [address]Uw# [phone] Basophils/100 WBC Auto (Bld) 0.8 % Normal 0-2 [facility] Comment on above: Order Comment: Campu s: M Performed By: #### L 200.18475 ####[address] [address]Px# [phone] EOS ABS 0.10 K/CU MM Normal 0-0.5 [facility] Comment on above: Order Comment: Campu s: M Performed By: #### L 200.00586 ####[facility] ICGYTRFLOL[address] [place], [place] [address]Ph# [phone] Eosinophils/100 WBC Auto (Bld) 0.5 % Normal 0-5 [facility] Comment on above: Order Comment: Campu s: M Performed By: #### L 200.51870 ####[facility] WQSFRBOUOW[address] [place] [address]Bh# [phone] Erythrocyte distribution width Auto Ratio (RBC) 12.0 % Normal 11-14.5 [facility] Comment on above: Order Comment: Campu s: M Performed By: #### L 200.07227 ####[facility] MTJOJNJGBK[address] [place] [address]Cl# [phone] Hematocrit Auto Volume Fraction (Bld) 45.9 % Normal 35.0-47.0 [facility] Comment on above: Order Comment: Campu s: M Performed By: #### L 200.37652 ####[facility] LREDQMARPT[address] [place] [address]Vg# [phone] Hemoglobin mass conc (Bld) 15.6 g/dL High 11.5-15.5 [facility] Comment on above: Order Comment: Campu s: M Performed By: #### L 200.99809 ####[facility] ERTKSFXBKB[address] [place], [place] [address]Ph# [phone] IMMATR GRAN ABS 0.10 K/CU MM Normal Less than 2 [facility] Comment on above: Order Comment: Campu s: M Performed By: #### L 200.88184 ####[place] [address]Ph# [phone] IMMATURE GRAN % 0.4 % Normal Less than 2 [facility] Comment on above: Order Comment: Campu s: M Performed By: #### L 200.23900 ####[place] [address]Ph# [phone] Lymphocytes Auto #/vol (Bld) 2.70 K/CU MM Normal 0.9-4.4 [facility] Comment on above: Order Comment: Campu s: M Performed By: #### L 200.86420 ####[address]# [phone] Lymphocytes/100 WBC Auto (Bld) 21.7 % Normal 20-40 [facility] Comment on above: Order Comment: Campu s: M Performed By: #### L 200.09272 ####[facility] QMGLYVWQCU[address] [place], [place] [address]Ph# [phone] MCHC Auto mass conc (RBC) 34.0 g/dL Normal 32.0-36.0 [facility] Comment on above: Order Comment: Campu s: M Performed By: #### L 200.84722 ####[facility] HDSLZYUIOP9[address] [place], [place] [address]Ph# [phone] MCV Auto Entitic volume (RBC) 93.3 fL Normal 80.0-99.0 [facility] Comment on above: Order Comment: Campu s: M Performed By: #### L 200.30876 ####[facility] HILKBPDTAR4261 [place], [place] [address]Jg# [phone] MONO ABS 0.80 K/CU MM Normal 0.1-1.1 [facility] Comment on above: Order Comment: Campu s: M Performed By: #### L 200.53391 ####[facility] MDBVJCAUFO[address] [place], [place] [address]Ph# [phone] Monocytes/100 WBC Auto (Bld) 6.4 % Normal 2-10 [facility] Comment on above: Order Comment: Campu s: M Performed By: #### L 200.03119 ####[place] [address]Ph# [phone] NEUTROPHIL ABS 8.90 K/CU MM High 2.0-8.3 [facility] Comment on above: Order Comment: Campu s: M Performed By: #### L 200.87899 ####[facility] TVTELCNJHX[address] [place], [place] [address]Ph# [phone] Neutrophils/100 WBC Auto (Bld) 70.2 % Normal 45-75 [facility] Comment on above: Order Comment: Campu s: M Performed By: #### L 200.15248 ####[place] [address]Ph# [phone] Nucleated RBC/100 WBC Ratio (Bld) 0.0 % Normal Less than 1 [facility] Comment on above: Order Comment: Campu s: M Performed By: #### L [id number] ####[facility] [id number] [place], [place] [address]Ph# [phone] Platelet mean volume Auto Entitic volume (Bld) 11.5 fL Normal 9.4-12.4 [facility] Comment on above: Order Comment: Campu s: M Performed By: #### L [id number] ####[facility] [id number] [place], [place] [address]Ph# [phone] Platelets Auto #/vol (Bld) 219 K/CU MM Normal 150-450 [facility] Comment on above: Order Comment: Campu s: M Performed By: #### L 200.73775 ####[facility] [id number] [place], [place] [address]Vo# [phone] RBC Auto #/vol (Bld) 4.92 M/CU MM Normal 3.90-5.30 [facility] Comment on above: Order Comment: Campu s: M Performed By: #### L 200.41427 ####[facility] [id number] [place], [place] [address]Gp# [phone] WBC Auto #/vol (Bld) 12.6 K/CU MM High 4.5-11.0 [facility] Comment on above: Order Comment: Campu s: M Performed By: #### L 200.64095 ####[facility] [id number] [place], [place] [address]Hy# [phone] [facility] 09-15-2017 CR DATE OF CONSULTATION : 09/15/2017PREOPERATIVE DIAGNOSIS: Diverticular disease, recurrent.HISTORY OF PRESENT ILLNESS: The patient is a pleasant, 62-year-old female who isscheduled for a laparoscopic robotic-assisted sigmoid colectomy for recurrentdiverticulitis. Urology was asked to place stents. The patient has no currentinfections or troubles. Denied any hematuria.ALLERGIES: No known drug allergies.MEDICATIONS: See chart for details.PAST MEDICAL HISTORY: Includes GERD, arthritis, hiatal hernia, diverticular disease,IBS, fibromyalgia, degenerative disk disease.PAST SURGICAL HISTORY: Includes tonsillectomy, cholecystectomy 2004, shouldersurgery, carpal tunnel surgery 2005.SOCIAL HISTORY: No tobacco abuse.PHYSICAL EXAMINATION:Vital Signs: Patient is afebrile.General: Not in significant distress. See history and physical for physical exam.ASSESSMENT AND PLAN: Recurrent diverticulitis and diverticular disease. The plan atthis time is robotic-assisted colectomy. The patient will be asked of urology toplace preoperative lighted stents. Saroj Rosales, [facility]/[id number]: 09/15/2017 08:02DT: 09/15/2017 09:06SSI File#: [id number] #: [id number]/Reviewed by09/17/17 0952 [facility]IGNON [facility] PATIENT NAME: YVONNE LOMELI L[address] [facility] [address] Mota MEDICAL REC #: [id number], [place] [address] DATE: 09/15/17DISCHARGE DATE:CONSULTATION REPORT ATTENDING PHY: Parker Giang [facility] 09-15-2017 DS DATE OF ADMISSION: 09/15/2017DATE OF DISCHARGE: 09/19/2017DISCHARGE/DO Fitzgerald DIAGNOSIS: Sigmoid diverticulosis. History of diverticulitis.CHIEF COMPLAINT: Pain left lower quadrant, multiple attacks.REASON FOR ADMISSION:1. Postoperative operation, September 15, 2017. Robotic laparoscopic sigmoid colectomy.2. Bilateral transverse abdominis plane blocks.PERTINENT PHYSICAL FINDINGS: History of left lower quadrant abdominal pain withmultiple bouts of diverticulitis.HOSPITAL COURSE: Patient underwent surgery, was discharged on postoperative day 3,eating a regular diet, ambulating and voiding well with no problems or complaints.DIAGNOSTIC TESTS OR TREATMENT: None.DISPOSITION: Home.HOME GOING INSTRUCTIONS: See electronic home going instructions.CONDITION ON DISCHARGE: Good and improved. EMELIA Cevallos/[id number]: 10/18/2017 01:37DT: 10/18/2017 07:14SSI File#: [id number] #: [id number]/Reviewed by10/18/17 1035 DAVID [facility] PATIENT NAME: YVONNE LOMELI L[address] [facility] [address] Mota MEDICAL REC #: [id number], [place] [address] DATE: 09/15/17DISCHARGE DATE: 09/19/17DISCHARGE SUMMARY ATTENDING PHY: Parker Giang MD Normal [facility] GFR ESTon 09-15-2017 IF AMER Greater than 60 [facility] Comment on above: Order Comment: Campu s: M Performed By: #### L 500.54986, L500.79273 ####[facility] [id number] [place], [place] [address]Iz# [phone] IF non-AFR AMER 60 ML/MIN [facility] Comment on above: Order Comment: Campu s: M Performed By: #### L 500.58628, L500.08631 ####[facility] [id number] [place], [place] [address]Um# [phone] ORon 09-15-[address] [facility] OR DATE OF SERVICE: 09/15/2017PREOPERATIVE DIAGNOSIS: Recurrent rectosigmoid colon diverticulitis.POSTOPERA TIVE DIAGNOSIS: Recurrent rectosigmoid colon diverticulitis.OPERATION :1. Robotic laparoscopic sigmoid colectomy.2. Bilateral transverse abdominis plane blocks with a total of 60 mL of 0.25%Marcaine with epinephrine.SURGEON: Parker Giang MDFIRST ASSISTANTS: Daniel/Vu/Tenzin NESTHESIA: General endotracheal; [place]/Thaddeuserman.PREP: Complete oral mechanical and oral antibiotic bowel prep prior to coming in forsurgery. Prior to induction of intubation, knee-high SCDs and IV antibiotics.ChloraPrep to the abdominal wall. Rectal prep with saline until clear and thenbetadine. The perineum was prepped with ChloraPrep.Please see Dr. Rosales's dictated note.The patient gives me permission to talk to her family about the procedure.CONSENT: The indications, alternatives, risks and potential complications includingbut not limited to bleeding, infection, recurrence, need for further surgical ormedical treatment, leak of the anastomosis, conversion from laparoscopic to open, theneed for diverting osteotomy were all discussed in great detail. She appeared tounderstand, and all her questions were answered, and she asked us to proceed.PROCEDURE DESCRIPTION: The patient was induced and intubated, prepped as describedabove and draped in usual sterile fashion. This was done after Dr. Rosales did acystoscopy and bilateral ureteral catheter placements (lighted stents).Appropriate patient identification, safety check and timeout according to WHOguidelines and the whiteboard in the room were carried out.The ports were marked out, one in the right lower quadrant, financial services assistant port in theright lateral, one just above the umbilicus and on the right side which was a cameraport, and this was an open access port and then 2 in the left subcostal region.These were all robotic ports accept for the financial services assistant port which was a 5-mm air-sealport. [facility] PATIENT NAME: YVONNE LOMELI L[address] MEDICAL REC #: [id number], [place] [address] DATE: 09/15/17DISCHARGE DATE:OPERATIVE REPORT ATTENDING AMANDEEP: Parker Giang MDA 12-mm robotic port was placed in the right lower quadrant.Once these were marked out and everybody agreed that this would be the appropriateand the assistants agreed that they would be able to use the financial services assistant porteffectively, an incision was made in the camera port site. This was carried down tothe external rectus fascia which was opened. The rectus muscle was split, and theposterior rectus fascia was opened and under direct vision, an 8-mm robotic port wasplaced. A stitch was placed in the skin to keep the abdomen insufflated.Under direction vision, the rest of the ports were placed. The patient was placed in26 degrees in Trendelenburg, 8 degrees right to keep the small bowel out of thepelvis.Once this was done, then the [employer] robot was docked.From a medial to lateral approach, identifying the ureter, the mesentery of thesigmoid colon was taken down. This was carried all the way down to the distalsigmoid colon just above the reflection.Once this was all taken down, hemostasis was maintained by electrocautery, bipolarcautery, a vessel ligature and Hem-o-messi robotic clips.The VIGNESH was taken down with a vascular robotic stapler.Once this was done, it was clear that there was no problem reaching the proposedanastomotic site. ICG was given and there was good blood flow to the proximal anddistal areas of a proposed anastomosis.The distal sigmoid colon was then stapled closed with a blue load robotic stapler.The robot was undocked. A small incision (6 cm) was made in the left lateral sidejust below the umbilicus. This was carried down to the anterior rectus fascia. Therectus muscle was split, not divided and the posterior rectus sheath was opened. Asmall wound protector was placed. The bowel was brought out. Over drapes wereplaced. The bowel was divided, and the specimen was taken off the table.Sizers were used, and a 29 EEA fit the best and was placed and secured with a pursestring suture of 2-0 Prolene.Hemostasis was assured. The bowel was allowed to fall back in normal anatomicalposition. The over drapes were removed, dirty instruments removed, and gloves werechanged. The wound protector was also removed at this time.The posterior rectus fascia was closed using running 0 PDS. Irrigation was carriedout. The anterior rectus fascia was closed using running 0 PDS. Irrigation was [facility] PATIENT NAME: YVONNE LOMELI L[address] [facility] [address] Mota MEDICAL REC #: [id number], [place] [address] DATE: 09/15/17DISCHARGE DATE:OPERATIVE REPORT ATTENDING PHY: Parker Giang.Hemostasis was assured.Reinsufflation was carried out and a sizer was placed through the anus to the stapleline. This was air tested for leaks and no air was seen to bubble out of the rectalstump.The 29 EEA stapler was placed transanally and brought out just above and to the rightside of the staple line. The obturator was brought out just above and to the rightside of the staple line so that only 1 staple line was crossed.The anvil was secured. The stapler was closed and fired under direct vision. Twocomplete donut rings were noted. The area was tested for leaks and no leak wasnoted.Because of the large amount of diverticulosis proximally, even though there was nosignificant tension on the bowel, I felt it prudent to reinforce the staple line, sothis was done with redocking of the robot and using running 2-0 V-Loc suture.This was done almost circumferentially but very posterior area could not be reachedeasily without excessive tension on the anastomosis, so it was left in place. Evicelwas placed.Under direct vision, bilateral TAP blocks were performed and under direct vision, ijkydto-cc-jlfro suture was placed in the fascia for closure in the 12-mm port and thecamera port site which was the open access. This was done with 0 PDS.Irrigation was carried out. Hemostasis was assured. Again, the bowel was checkedprior to and at this time to make sure there were no twists or kinks. Thedesufflation was carried out. The ports were removed through. The previously placedfascial sutures were secured. The one in the camera port site was still slightlyloose so it was reinforced with another stitch of 0 PDS. This was done by the. The skin was reapproximated using running subcuticular 4-0 Monocryl.This skin was sealed with Dermabond. The patient tolerated the procedure well, wasextubated in the operating room. OG tube was discontinued in the operating room.The bilateral ureteral catheters were discontinued in the operating room. Thepatient was taken to PACU in fair, stable condition. Sponge and needle counts werereported correct at the end of the case. The specimen was labeled correctly and sentto pathology.ESTIMATED BLOOD LOSS: 50 mLURINE OUTPUT: 30 mL plus what was on the floor and what was removed at the beginningof the case which was estimated to about 400 mL. [facility] PATIENT NAME: YVONNE LOMELI L[address] [facility] [address] Mota MEDICAL REC #: [id number], [place] [address] DATE: 09/15/17DISCHARGE DATE:OPERATIVE REPORT ATTENDING PHY: Parker Giang MDOROGASTRIC TUBE OUTPUT: Drops.CRYSTALLOIDS: 2300 mLWOUND CLASS: 2 EMELIA Cevallos/[id number]: 09/15/2017 12:43DT: 09/15/2017 14:57SSI File#: [id number] #: [id number]: Parker Giang MDVerified/Reviewed by09/18/17 1531 DAVID [facility] PATIENT NAME: YVONNE LOMELI320 [facility] [address] Mota MEDICAL REC #: [id number], [place] [address] DATE: 09/15/17DISCHARGE DATE:OPERATIVE REPORT ATTENDING PHY: Parker Giang MD [facility] OPERATIVE REPORT [facility] OR DATE OF SERVICE: 09/15/2017PREOPERATIVE DIAGNOSIS: Diverticular disease.POSTOPERATIVE DIAGNOSIS: Diverticular disease.OPERATION: Cystoscopy, bilateral stent placement.SURGEON: Saroj Rosales MD.ANESTHESIA: LMA general.OPERATIVE PROCEDURE: After correctly identifying the patient as Ms Lomeli, taken [facility] operative suite, given anesthetic and placed in the supine position, patient thenwas prepped and draped in dorsal lithotomy. Patient then had insertion of acystoscope that revealed a mild cystocele, but no obvious exophytic lesions, masses,growths or stones. The bladder was normal. The patient then had a Glidewire placedup the left ureteral orifice, and the lighted stent open-ended catheter portion wasplaced; similarly on the right. The patient then had 2 lighted stent part insertedthrough the open-ended catheter and secured. The patient had a Pop catheterplaced, and these stents were clamped to the catheter. These will be removed at theend of the procedure. Overall, the patient seemed to tolerate the procedure well.See Dr. Giang's procedure for the remainder. Saroj Rosales, [facility]/[id number]: 09/15/2017 09:43DT: 09/15/2017 10:37SSI File#: [id number] #: [id number]/Reviewed by09/17/17 0952 GAURAV [facility] PATIENT NAME: YVONNE LOMELI L[address] [facility] [address] MEDICAL REC #: [id number], [place] [address] DATE: 09/15/17DISCHARGE DATE:OPERATIVE REPORT ATTENDING PHY: Parker Giang [facility] 09-15-[address] [facility] SUR[facility] 09-15-2017 SURG ---- Maida ent: YVONNE LOMELI L SPEC IMEN: [id number] Collection Date: 09/15/17 Received: 09/15/17 Status: CATHY Moses. DrLynnette: Parker Giang MD Ph# Othr. .: No Family Physician given Othr. : Anali Randolph Material for Examination: A SIGMOID COLON PRE-OP DIAGNOSIS: RECURRENT DIVERTICULITIS PROXIMAL SIGMOID COLON POST-OP DIAGNOSIS: SAME SURGICAL PROCEDURE: ROBOTIC LAPAROSCOPIC SIGMOID COLECTOMY, BILATERAL TRANSVERSUS ABDOMINIS PLANE BLOCKS DIAGNOSIS A. Sigmoid colon, Robotic-assisted laparoscopic sigmoid colectomy: - Segment of colon (24.1 cm) with diverticulosis coli and focal mild acute diverticulitis. No evidence of perforation. - Proximal and distal surgical margins are unremarkable. - Unremarkable bowel trimmings. - desktop administrator consistent with Anvil, gross examination only. - Small, reactive lymph node.GROSS DESCRIPTION The specimen is received in formalin and labeled with the patient's name, ID and designatedsigmoid colon, is a portion of colon, 24.1 cm in length and marginal diameters each of 2.0cm. The serosal surface is yu-pink and has adherent adipose tissue. No areas of exudate orperforation are grossly identified. Multiple diverticuli are identified. None of whichgrossly appear to perforate the colon wall. The remainder of the mucosa is yu andunremarkable. No masses or nodules are identified. Also identified within the container taya detached portion of mucosa, 1.5 x 1.5 x 1.0 cm. Grossly, it is unremarkable. Alsoidentified within the container is a medical management trainer grossly consistent with anvil, 2.5 x2.5 x 1.3 cm. The metal colleen is 3.8 x 0.5 x 0.5 cm. Attached to this medical management trainer is aring-shaped portion of mucosa,, 2.0 x 1.8 x 1.0 cm. Grossly, it is unremarkable. Onepossible yet not probable lymph node is identified, 0.1 cm in greatest dimension. Nutrition Consultant sections are submitted in cassettes A1 through A8.SECTION SUMMARY:A1. MarginsA2-6. DiverticulaA7. Detached mucosa and mucosa attached to medical deviceA8. Single possible yet not probable lymph node [facility] NAME: YVONNE LOMELI Pathology and Laboratory Medicine UNIT#: [id number] LOC: [address]Filter[address] Operator: Miriam Dave M.D. [facility] [id number] ROOM/BED: [id number] [employer] : 55 AGE/SEX: 62/F ORD.DR. Giang,Parker Fitzgerald MD CONTINUED ON NEXT PAGE Jordyn blairnt: YVONNE LOMELI Unit#: [id number] (continued)SPECIMEN: [id number] MICROSCOPIC DESCRIPTION Eight Re stained slides examined.COPIES TO: No Family Physician given Anali Randolph Kirby L MDSigned Verified/Reviewed by MIRIAM DAVE M.D. 09/18/17 This dictation was created using voice recognition software. Phonetic and/or minor grammatical errors may exist. --[facility] NAME: YVONNE LOMELI Pathology and Laboratory Medicine UNIT#: [id number] LOC: [address] Operator: Miriam Dave M.D. ROOM/BED: [id number] [employer] : 55 AGE/SEX: 62/F ORD.Parker Peterson MD END OF REPORT Normal [facility] 09-15-2017 ABO and Rh group Nom (Bld) O POSITIVE [facility] Comment on above: Order Comment: Campu s: MPatient transfused or in the past 3 months: NOIs This Patient Going To Surgery? YSurgery Date: 09/15/17 CT PANCREASon 09-10-2016 CT PANCREAS ORIGINALThin section multiphase post IV contrast CT of the pancreas HISTORY: Follow-up abnormal CT COMPARISON: 08/20/2016 This exam was performed according to our departmental dose optimization program, and includes the following measures where applicable: automated exposure control, adjustment of the mAs and/or kVp according to patient size and/or exam, and an iterative reconstruction algorithm. There is a fairly well-defined region of hypodensity at the ventral aspect of the pancreatic head. No adjacent peripancreatic infiltration is present and the pancreatic duct is not dilated. More distally, the pancreas parenchyma is normal as well. Several areas of low-density are present within the pancreatic head within this area, probably interspersed retroperitoneal fat. No other pancreatic finding. No additional contributory abnormality is identified. 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 Differential diagnosis includes focal pancreatitis, thought to be unlikely. Correlation with amylase and lipase recommended for confirmation. If these values are normal, then no follow-up would be considered necessary. Interpreted By: Smith Earlyreliminary Report By: Smith Early MDElectronically Signed By: Smith Early MD Dictated Date: 09/10/2016 2:17:04 PM Prelim Date: 09/10/2016 2:17:04 PM Sign Date: 09/10/2016 2:22:19 PM Normal [facility] Vital Signs Date Time Vital Sign Value Performing Clinician Facility 11-01-2024 15:37-0400 Body height 152.[address] Soo Ladd MD Work Phone: [facility] 11-01-2024 15:37-0400 Body mass index (BMI) [Ratio] 28.9 kg/m2 Dr. Soo Ladd MD Work Phone: [facility] 11-01-2024 15:37-0400 Body temperature 97.8 [degF] Dr. Soo Ladd MD Work Phone: [facility] 11-01-2024 15:37-0400 Body weight 67.[address] Soo Ladd MD Work Phone: [facility] 11-01-2024 15:37-0400 Diastolic blood pressure 76 mm[Hg] Dr. Soo Ladd MD Work Phone: [facility] 11-01-2024 15:37-0400 Heart rate 77 /min Dr. Soo Ladd MD Work Phone: [facility] 11-01-2024 15:37-0400 Respiratory rate 18 /min Dr. Soo Ladd MD Work Phone: [facility] 11-01-2024 15:37-0400 SaO2% (BldA) [Mass fraction] 97 % Dr. Soo Ladd MD Work Phone: [facility] 11-01-2024 15:37-0400 Systolic blood pressure 138 mm[Hg] Dr. Soo Ladd MD Work Phone: [facility] 10-21-2024 11:37-0400 Body temperature 98.6 [degF] Dr. Soo Ladd MD Work Phone: [facility] 10-21-2024 11:37-0400 Diastolic blood pressure 82 mm[Hg] Dr. Soo Ladd MD Work Phone: [facility] 10-21-2024 11:37-0400 Heart rate 79 /min Dr. Soo Ladd MD Work Phone: [facility] 10-21-2024 11:37-0400 Respiratory rate 14 /min Dr. Soo Ladd MD Work Phone: [facility] 10-21-2024 11:37-0400 SaO2% (BldA) [Mass fraction] 100 % Dr. Soo Ladd MD Work Phone: [facility] 10-21-2024 11:37-0400 Systolic blood pressure 164 mm[Hg] Dr. Soo Ladd MD Work Phone: [facility] 10-21-2024 08:45-0400 Body height 152.[address] Soo Ladd MD Work Phone: [facility] 10-21-2024 08:45-0400 Body mass index (BMI) [Ratio] 31 kg/m2 Dr. Soo Ladd MD Work Phone: [facility] 10-21-2024 08:45-0400 Body weight 72.[address] Soo Ladd MD Work Phone: [facility] 10-03-2024 14:11-0400 Body height 152.[address] Soo Ladd MD Work Phone: [facility] 10-03-2024 14:11-0400 Body mass index (BMI) [Ratio] 29 kg/m2 Dr. Soo Ladd MD Work Phone: [facility] 10-03-2024 14:11-0400 Body temperature 97.3 [degF] Dr. Soo Ladd MD Work Phone: [facility] 10-03-2024 14:11-0400 Body weight 67.[address] Soo Ladd MD Work Phone: [facility] 10-03-2024 14:11-0400 Diastolic blood pressure 66 mm[Hg] Dr. Soo Ladd MD Work Phone: [facility] 10-03-2024 14:11-0400 Heart rate 70 /min Dr. Soo Ladd MD Work Phone: [facility] 10-03-2024 14:11-0400 Respiratory rate 16 /min Dr. Soo Ladd MD Work Phone: [facility] 10-03-2024 14:11-0400 SaO2% (BldA) [Mass fraction] 97 % Dr. Soo Ladd MD Work Phone: [facility] 10-03-2024 14:11-0400 Systolic blood pressure 142 mm[Hg] Dr. Soo Ladd MD Work Phone: [facility] 08-05-2024 15:27-0400 Body height 152.4 cm Aanli Rico APRN.CNP Work Phone: [facility] 08-05-2024 15:27-0400 Body mass index (BMI) [Ratio] 29.29 kg/m2 Anali Jacky FILM OR VIDEOTAPE EDITOR.CARTON LINER Work Phone: [facility] 08-05-2024 15:27-0400 Body weight 68.04 kg Anali Sacramento FILM OR VIDEOTAPE EDITOR.CARTON LINER Work Phone: [facility] 08-05-2024 15:27-0400 Diastolic blood pressure 76 mm[Hg] Anali Jacky FILM OR VIDEOTAPE EDITOR.CARTON LINER Work Phone: [facility] 08-05-2024 15:27-0400 Systolic blood pressure 136 mm[Hg] Anali Jacky FILM OR VIDEOTAPE EDITOR.CARTON LINER Work Phone: [facility] 06-07-2024 14:43-0400 Body temperature 98.8 [degF] Dr. Soo Ladd MD Work Phone: [facility] 06-07-2024 14:43-0400 Diastolic blood pressure 64 mm[Hg] Dr. Soo Ladd MD Work Phone: [facility] 06-07-2024 14:43-0400 Heart rate 72 /min Dr. Soo Ladd MD Work Phone: [facility] 06-07-2024 14:43-0400 Respiratory rate 14 /min Dr. Soo Ladd MD Work Phone: [facility] 06-07-2024 14:43-0400 SaO2% (BldA) [Mass fraction] 98 % Dr. Soo Ladd MD Work Phone: [facility] 06-07-2024 14:43-0400 Systolic blood pressure 134 mm[Hg] Dr. Soo Ladd MD Work Phone: [facility] 06-05-2024 09:26-0400 Body height 152.[address] Soo Ladd MD Work Phone: [facility] 06-05-2024 09:26-0400 Body mass index (BMI) [Ratio] 29.7 kg/m2 Dr. Soo Ladd MD Work Phone: [facility] 06-05-2024 09:26-0400 Body temperature 98.4 [degF] Dr. Soo Ladd MD Work Phone: [facility] 06-05-2024 09:26-0400 Body weight 68.[address] Soo Ladd MD Work Phone: [facility] 06-05-2024 09:26-0400 Diastolic blood pressure 82 mm[Hg] Dr. Soo Ladd MD Work Phone: [facility] 06-05-2024 09:26-0400 Heart rate 62 /min Dr. Soo Ladd MD Work Phone: [facility] 06-05-2024 09:26-0400 Respiratory rate 14 /min Dr. Soo Ladd MD Work Phone: [facility] 06-05-2024 09:26-0400 SaO2% (BldA) [Mass fraction] 99 % Dr. Soo Ladd MD Work Phone: [facility] 06-05-2024 09:26-0400 Systolic blood pressure 148 mm[Hg] Dr. Soo Ladd MD Work Phone: [facility] 03-21-2024 10:20-0500 Body mass index (BMI) [Ratio] 29.37 kg/m2 Anali Sacramento FILM OR VIDEOTAPE EDITOR.CARTON LINER Work Phone: [facility] 03-21-2024 10:20-0500 Body weight 68.22 kg Anali Jacky FILM OR VIDEOTAPE EDITOR.CARTON LINER Work Phone: [facility] 03-21-2024 10:20-0500 Diastolic blood pressure 64 mm[Hg] Anali Sacramento FILM OR VIDEOTAPE EDITOR.CARTON LINER Work Phone: [facility] 03-21-2024 10:20-0500 Systolic blood pressure 122 mm[Hg] Anali Jacky FILM OR VIDEOTAPE EDITOR.CARTON LINER Work Phone: [facility] 12-23-2023 11:06-0400 Body mass index (BMI) [Ratio] 28.55 kg/m2 Ashlie Wall FILM OR VIDEOTAPE EDITOR.CARTON LINER Work Phone: [facility] 12-23-2023 11:06-0400 Body temperature 97.59 [degF] Ashlie Wall FILM OR VIDEOTAPE EDITOR.CARTON LINER Work Phone: [facility] 12-23-2023 11:06-0400 Body weight 66.3 kg Ashlie Wall FILM OR VIDEOTAPE EDITOR.[employer] Work Phone: [facility] 12-23-2023 11:06-0400 Diastolic blood pressure 67 mm[Hg] Ashlie Wall FILM OR VIDEOTAPE EDITOR.[employer] Work Phone: [facility] 12-23-2023 11:06-0400 Heart rate 57 /min Ashlie Wall FILM OR VIDEOTAPE EDITOR.[employer] Work Phone: [facility] 12-23-2023 11:06-0400 Respiratory rate 16 /min Ashlie Wall FILM OR VIDEOTAPE EDITOR.[employer] Work Phone: [facility] 12-23-2023 11:06-0400 SaO2% (BldA) [Mass fraction] 98 % Ashlie Wall FILM OR VIDEOTAPE EDITOR.[employer] Work Phone: [facility] 12-23-2023 11:06-0400 Systolic blood pressure 137 mm[Hg] Ashlie Wall FILM OR VIDEOTAPE EDITOR.[employer] Work Phone: [facility] 12-18-2023 10:54-0400 Body height 152.[address] [facility] 12-18-2023 10:54-0400 Body mass index (BMI) [Ratio] 28.01 kg/m2 Samantha Jama RD [facility] 12-18-2023 10:54-0400 Body weight 65.[address] [facility] 11-06-2023 09:32-0400 Body height 152.[address] [facility] 11-06-2023 09:32-0400 Body mass index (BMI) [Ratio] 27.63 kg/m2 Samantha Jama RD [facility] 11-06-2023 09:32-0400 Body weight 64.[address] [facility] 09-18-2023 10:17-0400 Body height 152.4 cm Samantha Jama [facility] 09-18-2023 10:17-0400 Body mass index (BMI) [Ratio] 27.42 kg/m2 Samantha Jama [facility] 09-18-2023 10:17-0400 Body weight 63.[address] [facility] 08-18-2023 12:16-0400 Body mass index (BMI) [Ratio] 27.99 kg/m2 Caitie Baker APRN.[employer] Work Phone: [facility] 08-18-2023 12:16-0400 Body temperature 98.2 [degF] Caitie Baker APRN.[employer] Work Phone: [facility] 08-18-2023 12:16-0400 Body weight 65 kg Caitie Baker APRN.[employer] Work Phone: [facility] 08-18-2023 12:16-0400 Diastolic blood pressure 62 mm[Hg] Caitie Baker APRN.[employer] Work Phone: [facility] 08-18-2023 12:16-0400 Heart rate 71 /min Caitie Baker APRN.[employer] Work Phone: [facility] 08-18-2023 12:16-0400 Respiratory rate 16 /min Caitie Baker APRN.[employer] Work Phone: [facility] 08-18-2023 12:16-0400 SaO2% (BldA) [Mass fraction] 97 % Caitie Baker APRN.[employer] Work Phone: [facility] 08-18-2023 12:16-0400 Systolic blood pressure 124 mm[Hg] Caitie Baker APRN.[employer] Work Phone: [facility] 08-07-2023 12:54-0400 Body height 152.4 cm Samantha Jama [facility] 08-07-2023 12:54-0400 Body mass index (BMI) [Ratio] 27.44 kg/m2 Samantha Jama [facility] 08-07-2023 12:54-0400 Body weight 63.73 kg Samantha Jama [facility] 07-21-2023 15:10-0400 Body mass index (BMI) [Ratio] 27.73 kg/m2 Anali Sacramento FILM OR VIDEOTAPE EDITOR.[employer] Work Phone: [facility] 07-21-2023 15:10-0400 Body weight 64.41 kg Anali [place] FILM OR VIDEOTAPE EDITOR.[employer] Work Phone: [facility] 07-21-2023 15:10-0400 Diastolic blood pressure 70 mm[Hg] Anali Sacramento FILM OR VIDEOTAPE EDITOR.[employer] Work Phone: [facility] 07-21-2023 15:10-0400 Systolic blood pressure 136 mm[Hg] Anali Jacky FILM OR VIDEOTAPE EDITOR.[employer] Work Phone: [facility] 04-17-2023 13:57-0500 Body height 152.4 cm Samantha Celayabertson [facility] 04-17-2023 13:57-0500 Body weight 63.5 kg Samantha Jama [facility] 03-06-2023 14:30-0500 Body height 152.[address] Soo Ladd Work Phone: [facility] 03-06-2023 14:30-0500 Body mass index (BMI) [Ratio] 27.5 kg/m2 Dr. Soo Ladd Work Phone: [facility] 03-06-2023 14:30-0500 Body temperature 99.4 [degF] Dr. Soo Ladd Work Phone: [facility] 03-06-2023 14:30-0500 Body weight 63.[address] Soo Ladd Work Phone: [facility] 03-06-2023 14:30-0500 Diastolic blood pressure 74 mm[Hg] Dr. Soo Ladd Work Phone: [facility] 03-06-2023 14:30-0500 Heart rate 68 /min Dr. Soo Ladd Work Phone: [facility] 03-06-2023 14:30-0500 Respiratory rate 16 /min Dr. Soo Ladd Work Phone: [facility] 03-06-2023 14:30-0500 SaO2% (BldA) [Mass fraction] 98 % Dr. Soo Ladd Work Phone: [facility] 03-06-2023 14:30-0500 Systolic blood pressure 122 mm[Hg] Dr. Soo Ladd Work Phone: [facility] 01-09-2023 09:32-0500 Body height 152.4 cm Samantha Jama [facility] 01-09-2023 09:32-0500 Body weight 64.41 kg Samantha aJma [facility] 12-16-2022 16:46-0400 Body temperature 97.7 [degF] Dr. Soo Ladd Work Phone: [facility] 12-16-2022 16:46-0400 Diastolic blood pressure 47 mm[Hg] Dr. Soo Ladd Work Phone: [facility] 12-16-2022 16:46-0400 Heart rate 64 /min Dr. Soo Ladd Work Phone: [facility] 12-16-2022 16:46-0400 Respiratory rate 16 /min Dr. Soo Ladd Work Phone: [facility] 12-16-2022 16:46-0400 SaO2% (BldA) [Mass fraction] 97 % Dr. Soo Ladd Work Phone: [facility] 12-16-2022 16:46-0400 Systolic blood pressure 145 mm[Hg] Dr. Soo Ladd Work Phone: [facility] 12-16-2022 12:22-0400 Body height 152.[address] Soo Ladd Work Phone: [facility] 12-16-2022 12:22-0400 Body mass index (BMI) [Ratio] 28.4 kg/m2 Dr. Soo Ladd Work Phone: [facility] 12-16-2022 12:22-0400 Body weight [address] Soo Ladd Work Phone: [facility] 12-16-2022 12:22-0400 Inhaled oxygen flow rate 98 L/min Dr. Soo Ladd Work Phone: [facility] 12-09-2022 12:05-0400 Body height 152.4 cm Meagan Link MD Work Phone: [facility] 12-09-2022 12:05-0400 Body weight 67.13 kg Meagan Link MD Work Phone: [facility] 12-09-2022 12:05-0400 Diastolic blood pressure 72 mm[Hg] Meagan Link MD Work Phone: [facility] 12-09-2022 12:05-0400 Heart rate 64 /min Meagan Link MD Work Phone: [facility] 12-09-2022 12:05-0400 Respiratory rate 16 /min Meagan Link MD Work Phone: [facility] 12-09-2022 12:05-0400 Systolic blood pressure 124 mm[Hg] Meagan Link MD Work Phone: [facility] 11-28-2022 14:52-0400 Body mass index (BMI) [Ratio] 28 kg/m2 Dr. Soo Ladd Work Phone: [facility] 11-28-2022 14:52-0400 Body temperature 99 [degF] Dr. Soo Ladd Work Phone: [facility] 11-28-2022 14:52-0400 Body weight 67.[address] Soo Ladd Work Phone: [facility] 11-28-2022 14:52-0400 Diastolic blood pressure 68 mm[Hg] Dr. Soo Ladd Work Phone: [facility] 11-28-2022 14:52-0400 Heart rate 80 /min Dr. Soo Ladd Work Phone: [facility] 11-28-2022 14:52-0400 Respiratory rate 18 /min Dr. Soo Ladd Work Phone: [facility] 11-28-2022 14:52-0400 SaO2% (BldA) [Mass fraction] 80 % Dr. Soo Ladd Work Phone: [facility] 11-28-2022 14:52-0400 Systolic blood pressure 136 mm[Hg] Dr. Soo Ladd Work Phone: [facility] 11-21-2022 13:43-0400 Body height 154.9 cm Samantha Jama [facility] 11-21-2022 13:43-0400 Body weight 66.[address] [facility] 11-18-2022 09:04-0400 Body weight 68.95 kg Anali Jacky FILM OR VIDEOTAPE EDITOR.[employer] Work Phone: [facility] 11-18-2022 09:04-0400 Diastolic blood pressure 70 mm[Hg] Anali [place] FILM OR VIDEOTAPE EDITOR.[employer] Work Phone: [facility] 11-18-2022 09:04-0400 Systolic blood pressure 154 mm[Hg] Anali Jacky FILM OR VIDEOTAPE EDITOR.[employer] Work Phone: [facility] 10-17-2022 14:25-0400 Body height 154.9 cm Anali [place] FILM OR VIDEOTAPE EDITOR.[employer] Work Phone: [facility] 10-17-2022 14:25-0400 Body weight 70.76 kg Anali Jacky FILM OR VIDEOTAPE EDITOR.[employer] Work Phone: [facility] 10-17-2022 14:25-0400 Diastolic blood pressure 82 mm[Hg] Anali [place] FILM OR VIDEOTAPE EDITOR.[employer] Work Phone: [facility] 10-17-2022 14:25-0400 Heart rate 78 /min Anali Jacky FILM OR VIDEOTAPE EDITOR.[employer] Work Phone: [facility] 10-17-2022 14:25-0400 Respiratory rate 12 /min Anali Jacky FILM OR VIDEOTAPE EDITOR.[employer] Work Phone: [facility] 10-17-2022 14:25-0400 SaO2% (BldA) [Mass fraction] 98 % Anali Jacky FILM OR VIDEOTAPE EDITOR.[employer] Work Phone: [facility] 10-17-2022 14:25-0400 Systolic blood pressure 150 mm[Hg] Anali [place] FILM OR VIDEOTAPE EDITOR.[employer] Work Phone: [facility] 10-17-2022 12:13-0400 Body height 152.[address] [facility] 10-17-2022 12:13-0400 Body weight 70.[address] [facility] 10-03-2022 [id number] Body height 154.[address] Soo Ladd Work Phone: [facility] 10-03-2022 14:21-0400 Body mass index (BMI) [Ratio] 30.1 kg/m2 Dr. Soo Ladd Work Phone: [facility] 10-03-2022 14:21-0400 Body temperature 96.4 [degF] Dr. Soo Ladd Work Phone: [facility] 10-03-2022 14:21-0400 Body weight 72.[address] Soo Ladd Work Phone: [facility] 10-03-2022 14:21-0400 Diastolic blood pressure 66 mm[Hg] Dr. Soo Ladd Work Phone: [facility] 10-03-2022 14:21-0400 Heart rate 82 /min Dr. Soo Ladd Work Phone: [facility] 10-03-2022 14:21-0400 Respiratory rate 18 /min Dr. Soo Ladd Work Phone: [facility] 10-03-2022 14:21-0400 SaO2% (BldA) [Mass fraction] 99 % Dr. Soo Ladd Work Phone: [facility] 10-03-2022 14:21-0400 Systolic blood pressure 138 mm[Hg] Dr. Soo Ladd Work Phone: [facility] 09-12-2022 12:24-0400 Body height 152.4 cm Samantha Jama [facility] 09-12-2022 12:24-0400 Body weight 75.52 kg Samantha Jama [facility] 09-07-2022 11:01-0400 Body height 154.[address] Soo Ladd Work Phone: [facility] 09-07-2022 11:01-0400 Body mass index (BMI) [Ratio] 31.4 kg/m2 Dr. Soo Ladd Work Phone: [facility] 09-07-2022 11:01-0400 Body temperature 98.3 [degF] Dr. Soo Ladd Work Phone: [facility] 09-07-2022 11:01-0400 Body weight 75.[address] Soo Ladd Work Phone: [facility] 09-07-2022 11:01-0400 Diastolic blood pressure 70 mm[Hg] Dr. Soo Ladd Work Phone: [facility] 09-07-2022 11:01-0400 Heart rate 74 /min Dr. Soo Ladd Work Phone: [facility] 09-07-2022 11:01-0400 Respiratory rate 16 /min Dr. Soo Ladd Work Phone: [facility] 09-07-2022 11:01-0400 SaO2% (BldA) [Mass fraction] 98 % Dr. Soo Ladd Work Phone: [facility] 09-07-2022 11:01-0400 Systolic blood pressure 142 mm[Hg] Dr. Soo Ladd Work Phone: [facility] 08-02-2022 10:06-0400 Body height 152.4 cm Anali [place] FILM OR VIDEOTAPE EDITOR.[employer] Work Phone: [facility] 08-02-2022 10:06-0400 Body weight 75.75 kg Anali [place] FILM OR VIDEOTAPE EDITOR.[employer] Work Phone: [facility] 08-02-2022 10:06-0400 Diastolic blood pressure 60 mm[Hg] Anali [place] FILM OR VIDEOTAPE EDITOR.[employer] Work Phone: [facility] 08-02-2022 10:06-0400 Systolic blood pressure 110 mm[Hg] Anali [place] FILM OR VIDEOTAPE EDITOR.[employer] Work Phone: [facility] 07-29-2022 14:53-0400 Body height 154.[address] Soo Ladd Work Phone: [facility] 07-29-2022 14:53-0400 Body mass index (BMI) [Ratio] 31.5 kg/m2 Dr. Soo Ladd Work Phone: [facility] 07-29-2022 14:53-0400 Body temperature 98.4 [degF] Dr. Soo Ladd Work Phone: [facility] 07-29-2022 14:53-0400 Body weight 75.[address] Soo Ladd Work Phone: [facility] 07-29-2022 14:53-0400 Diastolic blood pressure 86 mm[Hg] Dr. Soo Ladd Work Phone: [facility] 07-29-2022 14:53-0400 Heart rate 66 /min Dr. Soo Ladd Work Phone: [facility] 07-29-2022 14:53-0400 Respiratory rate 16 /min Dr. Soo Ladd Work Phone: [facility] 07-29-2022 14:53-0400 SaO2% (BldA) [Mass fraction] 97 % Dr. Soo Ladd Work Phone: [facility] 07-29-2022 14:53-0400 Systolic blood pressure 146 mm[Hg] Dr. Soo Ladd Work Phone: [facility] 07-09-2022 11:31-0400 Body temperature 97.3 [degF] Dr. Soo Ladd Work Phone: [facility] 07-09-2022 11:31-0400 Diastolic blood pressure 72 mm[Hg] Dr. Soo Ladd Work Phone: [facility] 07-09-2022 11:31-0400 Heart rate 76 /min Dr. Soo Ladd Work Phone: [facility] 07-09-2022 11:31-0400 Respiratory rate 16 /min Dr. Soo Ladd Work Phone: [facility] 07-09-2022 11:31-0400 SaO2% (BldA) [Mass fraction] 96 % Dr. Soo Ladd Work Phone: [facility] 07-09-2022 11:31-0400 Systolic blood pressure 140 mm[Hg] Dr. Soo Ladd Work Phone: [facility] 06-06-2022 14:57-0400 Body mass index (BMI) [Ratio] 31.4 kg/m2 Dr. Soo Ladd Work Phone: [facility] 06-06-2022 14:57-0400 Body weight 75.[address] Soo Ladd Work Phone: [facility] 06-06-2022 14:57-0400 Diastolic blood pressure 82 mm[Hg] Dr. Soo Ladd Work Phone: [facility] 06-06-2022 14:57-0400 Heart rate 87 /min Dr. Soo Ladd Work Phone: [facility] 06-06-2022 14:57-0400 SaO2% (BldA) [Mass fraction] 96 % Dr. Soo Ladd Work Phone: [facility] 06-06-2022 14:57-0400 Systolic blood pressure 165 mm[Hg] Dr. Soo Ladd Work Phone: [facility] 06-03-2022 11:50-0400 Body temperature 98 [degF] Dr. Soo Ladd Work Phone: [facility] 06-03-2022 11:50-0400 Diastolic blood pressure 78 mm[Hg] Dr. Soo Ladd Work Phone: [facility] 06-03-2022 11:50-0400 Heart rate 86 /min Dr. Soo Ladd Work Phone: [facility] 06-03-2022 11:50-0400 SaO2% (BldA) [Mass fraction] 96 % Dr. Soo Ladd Work Phone: [facility] 06-03-2022 11:50-0400 Systolic blood pressure 136 mm[Hg] Dr. Soo Ladd Work Phone: [facility] 02-05-2022 10:58-0500 Body height 154.[address] Soo Ladd Work Phone: [facility] 02-05-2022 10:58-0500 Body mass index (BMI) [Ratio] 30.2 kg/m2 Dr. Soo Ladd Work Phone: [facility] 02-05-2022 10:58-0500 Body temperature 98.6 [degF] Dr. Soo Ladd Work Phone: [facility] 02-05-2022 10:58-0500 Body weight 72.[address] Soo Ladd Work Phone: [facility] 02-05-2022 10:58-0500 Diastolic blood pressure 80 mm[Hg] Dr. Soo Ladd Work Phone: [facility] 02-05-2022 10:58-0500 Heart rate 91 /min Dr. Soo Ladd Work Phone: [facility] 02-05-2022 10:58-0500 Respiratory rate 18 /min Dr. Soo Ladd Work Phone: [facility] 02-05-2022 10:58-0500 SaO2% (BldA) [Mass fraction] 97 % Dr. Soo Ladd Work Phone: [facility] 02-05-2022 10:58-0500 Systolic blood pressure 140 mm[Hg] Dr. Soo Ladd Work Phone: [facility] 12-31-2021 07:20-0400 Body temperature 96.9 [degF] Dr. Soo Ladd Work Phone: [facility] Work Phone: 12-31-2021 07:20-0400 Diastolic blood pressure 74 mm[Hg] Dr. Soo Ladd Work Phone: [facility] Work Phone: 12-31-2021 07:20-0400 Heart rate 65 /min Dr. Soo Ladd Work Phone: [facility] Work Phone: 12-31-2021 07:20-0400 Respiratory rate 14 /min Dr. Soo Ladd Work Phone: [facility] Work Phone: 12-31-2021 07:20-0400 SaO2% (BldA) [Mass fraction] 100 % Dr. Soo Ladd Work Phone: [facility] Work Phone: 12-31-2021 07:20-0400 Systolic blood pressure 144 mm[Hg] Dr. Soo Ladd Work Phone: [facility] Work Phone: 12-31-2021 05:57-0400 Body height 154.[address] Soo Ladd Work Phone: [facility] Work Phone: 12-31-2021 05:57-0400 Body mass index (BMI) [Ratio] 29.8 kg/m2 Dr. Soo Ladd Work Phone: [facility] Work Phone: 12-31-2021 05:57-0400 Body weight 71.[address] Soo Ladd Work Phone: [facility] Work Phone: 12-02-2021 13:18-0400 Body weight 74.39 kg Anali [place] FILM OR VIDEOTAPE EDITOR.[employer] Work Phone: [facility] 12-02-2021 13:18-0400 Diastolic blood pressure 86 mm[Hg] Anali [place] FILM OR VIDEOTAPE EDITOR.[employer] Work Phone: [facility] 12-02-2021 13:18-0400 Systolic blood pressure 152 mm[Hg] Anali [place] FILM OR VIDEOTAPE EDITOR.[employer] Work Phone: [facility] 09-14-2021 11:31-0400 Body temperature 98.6 [degF] Dr. Soo Ladd Work Phone: [facility] Work Phone: 09-14-2021 11:31-0400 Diastolic blood pressure 64 mm[Hg] Dr. Soo Ladd Work Phone: [facility] Work Phone: 09-14-2021 11:31-0400 Heart rate 104 /min Dr. Soo Ladd Work Phone: [facility] Work Phone: 09-14-2021 11:31-0400 Respiratory rate 16 /min Dr. Soo Ladd Work Phone: [facility] Work Phone: 09-14-2021 11:31-0400 SaO2% (BldA) [Mass fraction] 97 % Dr. Soo Ladd Work Phone: [facility] Work Phone: 09-14-2021 11:31-0400 Systolic blood pressure 186 mm[Hg] Dr. Soo Ladd Work Phone: [facility] Work Phone: 08-13-2021 13:19-0400 Body height 154.[address] Soo Ladd Work Phone: [facility] Work Phone: 08-13-2021 13:19-0400 Body mass index (BMI) [Ratio] 31.6 kg/m2 Dr. Soo Ladd Work Phone: [facility] Work Phone: 08-13-2021 13:19-0400 Body temperature 97.4 [degF] Dr. Soo Ladd Work Phone: [facility] Work Phone: 08-13-2021 13:19-0400 Body weight 75.[address] Soo Ladd Work Phone: [facility] Work Phone: 08-13-2021 13:19-0400 Diastolic blood pressure 72 mm[Hg] Dr. Soo Ladd Work Phone: [facility] Work Phone: 08-13-2021 13:19-0400 Heart rate 71 /min Dr. Soo Ladd Work Phone: [facility] Work Phone: 08-13-2021 13:19-0400 Respiratory rate 16 /min Dr. Soo Ladd Work Phone: [facility] Work Phone: 08-13-2021 13:19-0400 SaO2% (BldA) [Mass fraction] 96 % Dr. Soo Ladd Work Phone: [facility] Work Phone: 08-13-2021 13:19-0400 Systolic blood pressure 132 mm[Hg] Dr. Soo Ladd Work Phone: [facility] Work Phone: 07-16-2021 15:14-0400 Body temperature 98.2 [degF] Dr. Soo Ladd Work Phone: [facility] Work Phone: 07-16-2021 15:14-0400 Diastolic blood pressure 84 mm[Hg] Dr. Soo Ladd Work Phone: [facility] Work Phone: 07-16-2021 15:14-0400 Heart rate 83 /min Dr. Soo Ladd Work Phone: [facility] Work Phone: 07-16-2021 15:14-0400 Respiratory rate 16 /min Dr. Soo Ladd Work Phone: [facility] Work Phone: 07-16-2021 15:14-0400 SaO2% (BldA) [Mass fraction] 98 % Dr. Soo Ladd Work Phone: [facility] Work Phone: 07-16-2021 15:14-0400 Systolic blood pressure 148 mm[Hg] Dr. Soo Ladd Work Phone: [facility] Work Phone: 06-24-2021 13:06-0400 Body weight 73.48 kg Anali Jacky FILM OR VIDEOTAPE EDITOR.[employer] Work Phone: [facility] 06-24-2021 13:06-0400 Diastolic blood pressure 62 mm[Hg] Anali Jacky FILM OR VIDEOTAPE EDITOR.[employer] Work Phone: [facility] 06-24-2021 13:06-0400 Systolic blood pressure 124 mm[Hg] Anali Jacky FILM OR VIDEOTAPE EDITOR.[employer] Work Phone: [facility] 06-03-2021 09:04-0400 Body weight 73.57 kg Anali Jacky FILM OR VIDEOTAPE EDITOR.[employer] Work Phone: [facility] 06-03-2021 09:04-0400 Diastolic blood pressure 60 mm[Hg] Anail [place] FILM OR VIDEOTAPE EDITOR.[employer] Work Phone: [facility] 06-03-2021 09:04-0400 Systolic blood pressure 120 mm[Hg] Anali Jacky FILM OR VIDEOTAPE EDITOR.[employer] Work Phone: [facility] 09-15-2017 13:57-0400 Body surface area Derived from formula 98.3 % [facility] [place] Comment on above: Performed By: #### [id number] ####[facility] [id number] [place], [place] [address]Fl# [phone] 09-15-2017 [id number] Body surface area Derived from formula 98.5 % [facility] [place] Comment on above: Performed By: #### [id number] ####[facility] [id number] [place], [place] [address]Zo# [phone] Encounters Encounter Date Encounter Type Care Provider Facility Start: 12-17-2024 ambulatory Efphilip Harpghe Facili ty:[facility] Start: 12-05-2024 ambulatory Efewziabe Oleghe Facili ty:[facility] Start: 12-04-2024 ambulatory Efewhillsboroughbe Oleghe Facili ty:[facility] Start: 12-03-2024 ambulatory Efphilip Harplizzye Facili ty:[facility] Start: 12-03-2024 End: 12-03-2024 ambulatory FIDENCIO GARCES Facility:[facility] Start: 11-28-2024 ambulatory ANALI RICO Facility: [facility] Start: 11-28-2024 Encounter for gynecological examination (general) (routine) without abnormal findings FIDENCIO GARCES [facility] Start: 11-11-2024 End: 11-11-[address] Soo Ladd MD Work Phone: -Laboratory Specimen Start: 11-11-2024 End: 11-11-2024 Patient encounter procedure Vinicius Ross DO -Laboratory Specimen Work Phone: Start: 11-11-2024 End: 11-11-2024 ambulatory Vinicius Ross Facility:[facility] Start: 11-07-2024 End: 11-07-[address] Soo Ladd MD Work Phone: -Laboratory Specimen Start: 11-07-2024 End: 11-07-2024 Patient encounter procedure Vinicius Ross DO -Laboratory Specimen Work Phone: Start: 11-07-2024 End: 11-07-2024 ambulatory Vinicius Ross Facility:[facility] Start: 11-04-2024 End: 11-04-[address] Soo Ladd MD Work Phone: -Laboratory Start: 11-04-2024 End: 11-04-2024 Patient encounter procedure Vinicius Ross DO -Laboratory Work Phone: Start: 11-04-2024 End: 11-04-2024 ambulatory Vinicius Ross Facility:[facility] Start: 11-01-2024 End: 11-01-2024 Patient encounter procedure Collin COBB -[facility] Work Phone: Start: 11-01-2024 End: 11-01-[address] Soo Ladd MD Work Phone: -[facility] Start: 10-21-2024 End: 10-21-2024 Emergency department patient visit Dr. Soo Ladd MD Work Phone: -Emergency Department Work Phone: Start: 10-03-2024 Encounter for genera l adult medical examination without abnormal findings Soo Ladd [facility] Start: 10-03-2024 End: 10-03-[address] Soo Ladd MD -[facility] Work Phone: Start: 10-03-2024 End: 10-03-[address] Soo Ladd MD Work Phone: -[facility] Start: 08-27-2024 Non-patient / Non-visit Dr. Jena Chawla MD -[facility] Work Phone: Start: 08-13-2024 End: 08-13-2024 Patient encounter procedure Caron DU -[facility] Work Phone: Start: 08-13-2024 End: 08-13-[address] Soo Ladd MD Work Phone: [facility] Work Phone: Start: 08-05-2024 End: 08-05-2024 Patient encounter procedure Anali Rico FILM OR VIDEOTAPE EDITOR.CARTON LINER Work Phone: OB/Gynecology Comment on above: Encounter for gyneco logical examination (general) (routine) without abnormal findings (Primary Dx); Encounter for screening mammogram for breast cancer; Osteopenia of lumbar spine Start: 08-05-2024 End: 08-05-2024 Patient encounter status Anali Rico FILM OR VIDEOTAPE EDITOR.CARTON LINER Work Phone: [facility] Start: 08-05-2024 End: 08-05-2024 ambulatory ANALI PALACIOSCALF Facility:[facility] Start: 08-01-2024 End: 08-01-[address] Soo Ladd MD Work Phone: [facility] Work Phone: Start: 08-01-2024 End: 08-01-2024 Patient encounter procedure Caron DU -Cat Scan [facility] Work Phone: Start: 08-01-2024 End: 08-01-2024 ambulatory [facility] Facility:[facility] Start: 07-08-2024 End: 07-08-2024 Patient encounter procedure Caron DU -[facility] Work Phone: Start: 07-08-2024 End: 07-08-2024 ambulatory [facility] Facility:[facility] Start: 06-07-2024 End: 06-07-2024 Patient encounter procedure Michael Yeh [facility] Work Phone: Start: 06-07-2024 End: 06-07-[address] Soo Ladd MD Work Phone: [facility] Work Phone: Start: 06-07-2024 End: 06-07-2024 ambulatory [facility] Facility:[facility] Start: 06-05-2024 End: 06-05-[address] Soo Ladd MD -[facility] Work Phone: Start: 06-05-2024 End: 06-05-[address] Soo Ladd MD [facility] Start: 06-05-2024 End: 06-05-[address] Soo Ladd MD Work Phone: [facility] Work Phone: Start: 06-05-2024 End: 06-05-2024 ambulatory [facility] Facility:[facility] Start: 03-22-2024 End: 03-22-2024 Telephone encounter Anali Jacky FILM OR VIDEOTAPE EDITOR.CARTON LINER Work Phone: OB/Gynecology Comment on above: Results Start: 03-21-2024 End: 03-21-2024 ambulatory ANALI JACKY Facility:[facility] Start: 03-21-2024 End: 03-21-2024 Patient encounter procedure Anali [place] FILM OR VIDEOTAPE EDITOR.CARTON LINER Work Phone: OB/Gynecology Comment on above: Vaginal irritation ( Primary Dx); Vaginal odor Start: 01-15-2024 End: 01-15-2024 ambulatory [facility] Facility:[facility] Start: 01-15-2024 End: 01-15-2024 ambulatory [facility] Facility:[facility] Start: 12-23-2023 End: 12-23-2023 ambulatory [facility] Facility:[facility] Start: 12-23-2023 End: 12-23-2023 Patient encounter procedure Ashlie Wall FILM OR VIDEOTAPE EDITOR.CARTON LINER Work Phone: [facility] Comment on above: Impacted cerumen of right ear (Primary Dx) Start: 12-18-2023 End: 12-18-2023 Nutrition therapy [address] Jama RD Nutrition Therapy Comment on above: Reassessment; Ian nieves Education Start: 12-18-2023 End: 12-18-[address] Nutrition Therapy Start: 11-06-2023 End: 11-06-[address] Nutrition Therapy Start: 11-06-2023 End: 11-06-2023 Nutrition therapy Samantha Jama RD Nutrition Therapy Comment on above: Reassessment; Patien t Education Start: 09-18-2023 End: 09-18-[address] Nutrition Therapy Start: 09-18-2023 End: 09-18-2023 Nutrition therapy Samantha Jama RD Nutrition Therapy Comment on above: Reassessment; Patien t Education Start: 08-21-2023 Documentation procedure Mammography Coordinator [facility] Department Start: 08-21-2023 Letter encounter Mammography Coordinator [facility] Start: 08-18-2023 End: 08-18-2023 Patient encounter procedure Caitie Baker APRN.CNP Work Phone: [facility] Comment on above: Vaginal discomfort ( Primary Dx) Start: 08-18-2023 End: 08-18-2023 Subsequent hospital visit by physician Screen Mammo [facility] M[facility] Comment on above: Encounter for screen ing mammogram for breast cancer [Z12.31] Start: 08-14-2023 Telephone encounter Anali Palacios terrance NERI Work Phone: OB/Gynecology Comment on above: Results Start: 08-07-2023 End: 08-07-[address] Nutrition Therapy Start: 08-07-2023 End: 08-07-2023 Nutrition therapy Samantha Jama RD Nutrition Therapy Comment on above: Reassessment; Patien t Education Start: 07-21-2023 End: 07-21-2023 Patient encounter procedure Anali Rico APRN.CARTON LINER Work Phone: OB/Gynecology Comment on above: PMB (postmenopausal bleeding) (Primary Dx) Start: 04-17-2023 End: 04-17-[address] Nutrition Therapy Comment on above: Reassessment; Patien t Education Start: 03-13-2023 End: 03-13-[address] Soo Ladd Work Phone: [facility] Work Phone: Start: 03-13-2023 End: 03-13-[address] Soo Ladd Work Phone: [facility]-Cat Scan, [facility] Work Phone: Start: 03-06-2023 End: 03-06-[address] Soo Ladd Work Phone: [facility] Work Phone: Start: 03-06-2023 End: 03-06-[address] Soo Ladd Work Phone: [facility] Internal Medicine Work Phone: Start: 01-09-2023 End: 01-09-[address] Nutrition Therapy Comment on above: Patient Education; R eassessment Start: 12-16-2022 End: 12-16-[address] Soo Ladd Work Phone: [facility] Work Phone: Comment on above: PMB (postmenopausal bleeding) (Primary Dx) Start: 12-16-2022 Patient encounter procedure Meagan Link MD Work Phone: [facility] Start: 12-16-2022 End: 12-16-2022 Admission to same day surgery center Dr. Soo Ladd Work Phone: [facility] Start: 12-09-2022 End: 12-09-2022 Patient encounter procedure Meagan Link MD Work Phone: OB/Gynecology Comment on above: PMB (postmenopausal bleeding) (Primary Dx) Start: 11-28-2022 End: 11-28-[address] Soo Ladd Work Phone: [facility] Internal Medicine Work Phone: Start: 11-25-2022 Telephone encounter Anali carlos APRN.CNP Work Phone: OB/Gynecology Comment on above: Results Start: 11-21-2022 End: 11-21-[address] Nutrition Therapy Comment on above: Patient Education; R eassessment Start: 11-18-2022 End: 11-18-2022 Patient encounter procedure Anali Rico FILM OR VIDEOTAPE EDITOR.CARTON LINER Work Phone: OB/Gynecology Comment on above: PMB (postmenopausal bleeding) (Primary Dx) Start: 11-17-2022 Telephone encounter Anali [facility] FILM OR VIDEOTAPE EDITOR.CARTON LINER Work Phone: OB/Gynecology Comment on above: Vaginal Bleeding Start: 10-18-2022 Telephone encounter Anali [facility] FILM OR VIDEOTAPE EDITOR.CARTON LINER Work Phone: OB/Gynecology Comment on above: Results Start: 10-17-2022 End: 10-17-[address] Soo Ladd Work Phone: [facility] Work Phone: Start: 10-17-2022 End: 10-17-2022 Patient encounter procedure Anali Rico FILM OR VIDEOTAPE EDITOR.CARTON LINER Work Phone: OB/Gynecology Comment on above: Female bladder prola pse (Primary Dx); Vaginal itching; Encounter for pessary maintenance Start: 10-17-2022 End: 10-17-[address] Nutrition Therapy Comment on above: Patient Education; R eassessment Start: 10-03-2022 End: 10-03-[address] Soo Ladd Work Phone: [facility] Internal Medicine Work Phone: Start: 09-21-2022 End: 09-21-[address] Soo Ladd Work Phone: [facility] Work Phone: Start: 09-21-2022 End: 09-21-[address] Soo Ladd Work Phone: [facility] Work Phone: Start: 09-12-2022 End: 09-12-[address] Nutrition Therapy Comment on above: Patient Education; A ssessment Start: 09-07-2022 End: 09-07-[address] Soo Ladd Work Phone: [facility] Internal Medicine Work Phone: Start: 08-02-2022 End: 08-02-2022 Patient encounter procedure Anali Rico APRN.CARTON LINER Work Phone: OB/Gynecology Comment on above: Encounter for gyneco logical examination (general) (routine) without abnormal findings (Primary Dx); Encounter for screening mammogram for breast cancer Start: 08-02-2022 End: 08-02-2022 Patient encounter status Anali Rico APRNLynnetteCARTON LINER Work Phone: OB/Gynecology Start: 07-29-2022 End: 07-29-[address] Soo Ladd Work Phone: [facility] Work Phone: Start: 07-29-2022 End: 07-29-[address] Soo Ladd Work Phone: [facility] Internal Medicine Start: 07-27-2022 Orders Only Anali Rico APRN.CARTON LINER Work Phone: Appointment Center Comment on above: Encounter for screen ing mammogram for malignant neoplasm of breast (Primary Dx) Start: 07-14-2022 End: 07-14-[address] Soo Ladd Work Phone: [facility] Start: 07-09-2022 End: 07-09-[address] Soo Ladd Work Phone: [facility] Start: 06-06-2022 End: 06-06-[address] Soo Ladd Work Phone: [facility] Gastroenterology Start: 06-03-2022 End: 06-03-[address] So[facility]add [facility] Phone: [facility] Start: 06-01-2022 End: 06-01-[address] Soo Ladd Work Phone: [facility] Work Phone: Start: 06-01-2022 End: 06-01-[address] Soo Ladd Work Phone: [facility]-Physical Therapy Start: 05-02-2022 End: 05-02-[address] Soo Ladd Work Phone: [facility] Orthopaedic Specia Start: 02-05-2022 End: 02-05-[address] Soo Ladd Work Phone: [facility] Start: 12-31-2021 Non-patient / Non-visit Dr. Soo Ladd Work Phone: [facility] Start: 12-31-2021 End: 12-31-2021 Admission to same day surgery center Dr. Soo Ladd Work Phone: [facility]-Endoscopy Start: 12-31-2021 End: 12-31-[address] Soo Ladd Work Phone: [facility] Work Phone: Start: 12-03-2021 Telephone encounter Anali [facility] terrance FILM OR VIDEOTAPE EDITOR.CARTON LINER Work Phone: OB/Gynecology Comment on above: Results Start: 12-02-2021 End: 12-02-2021 Patient encounter procedure Anali Jacky FILM OR VIDEOTAPE EDITOR.CARTON LINER Work Phone: OB/Gynecology Comment on above: Ulcerative mucositis of vagina (Primary Dx); Vaginal irritation Start: 12-01-2021 Telephone encounter Anali Met detention FILM OR VIDEOTAPE EDITOR.CARTON LINER Work Phone: Internal Medicine [place] Comment on above: Patient Question Start: 11-10-2021 End: 11-10-[address] Soo Ladd Work Phone: [facility] Gastroenterology Start: 09-14-2021 End: 09-14-[address] Soo Ladd Work Phone: [facility] Start: 08-13-[address] Soo Ladd Work Phone: [facility] Start: 08-13-2021 End: 08-13-2021 Encounter for general adult medical examination without abnormal findings Dr. Soo Ladd Work Phone: [facility] Internal Medicine Start: 08-13-2021 End: 08-13-[address] Soo Ladd Work Phone: [facility] Internal Medicine Start: 07-19-2021 Documentation procedure Mammography Coordinator [facility] Start: 07-19-2021 Letter encounter Mammography Coordinator [facility] Department Start: 07-19-2021 Telephone encounter Anali carlos FILM OR VIDEOTAPE EDITOR.CARTON LINER Work Phone: OB/Gynecology Comment on above: Results Start: 07-19-2021 End: 07-19-2021 Subsequent hospital visit by physician Bone Density [facility] Work Phone: Radiology Comment on above: Encounter for screen ing for osteoporosis [Z13.820] Encounter for screen ing mammogram for malignant neoplasm of breast [Z12.31] Start: 07-16-2021 End: 07-16-[address] Soo Ladd Work Phone: [facility] Start: 06-24-2021 End: 06-24-2021 Patient encounter procedure Anali Rico APRN.CARTON LINER Work Phone: OB/Gynecology Comment on above: Bladder prolapse, fe male, acquired (Primary Dx); Pessary maintenance; Encounter for screening mammogram for malignant neoplasm of breast; Encounter for screening for osteoporosis Start: 06-04-2021 Telephone encounter Anali carlos APRN.CARTON LINER Work Phone: OB/Gynecology Comment on above: Results Start: 06-03-2021 End: 06-03-2021 Patient encounter procedure Anali Rico HALLE Work Phone: OB/Gynecology Comment on above: Bladder prolapse, fe male, acquired (Primary Dx); Encounter for pessary maintenance; Vaginal spotting; Female bladder prolapse Start: 11-23-[address] Soo Ladd Work Phone: [facility] Start: 11-18-[address] Vadim Ladd Work Phone: [facility] Start: 07-30-[address] Soo Ladd Work Phone: [facility] Start: 01-09-2018 Patient encounter procedure Canales Amilcar Rahat Facility:[facility] Start: 10-03-2017 Patient encounter procedure Lashay CandiceLynnette Dunn Facility:[facility] Start: 09-15-2017 End: 09-19-2017 Evaluation and management of inpatient Parker Giang Facility:[facility] Start: 09-01-2017 Patient encounter procedure Canales Amilcar Rahat Facility:[facility] Start: 08-16-2017 Patient encounter procedure Lashay HarveyLynnette Shaun Facility:[facility] Start: 06-13-2017 Patient encounter procedure Parker Giang Facility:[facility] Start: 09-09-2016 Ambulatory ANALI Mejias TOMASA Fac lity:[facility] Procedures Date Procedure Procedure Detail Performing Clinician Start: 11-11-2024 End: 11-11-2024 Giardia [address] assay Dr[address] Esme Ladd MD Work Phone: Start: 11-11-[address] Soo Ladd MD Work Phone: Start: 11-11-[address] parasites identification Dr. Soo Ladd MD Work Phone: Start: 11-11-2024 Ova&parasites direct smears concentration & id Dr. Soo Ladd MD Work Phone: Start: 11-11-[address] Esme Ladd MD Work Phone: Comment on above: Test Ordered: [id number] Stool CultureSalmonella/Shigella Screen Note: CB Final report Reference Range: .Result 1 Comment CB Reference Range: .No Salmonella or Shigella recovered.Campylobacter Culture Note: CB Final report Reference Range: .Result 1 Comment CB Reference Range: .No Campylobacter species isolated.E coli Shiga Toxin EIA Negative CB Reference Range: NegativePerformed at: - [facility] [id number] Director: Santi Singletary PhD, Phone: [phone] Start: 11-07-2024 Clostridium difficil e detection Dr. Soo Ladd MD Work Phone: Start: 11-07-[address] Soo Ladd MD Work Phone: Start: 11-04-2024 Vitamin D, 25-hydrox y measurement Dr. Soo Ladd MD Work Phone: Comment on above: Vitamin D StatusDefi ciency: <20 ng/mL (50nmol/L)Insufficiency: 20-30 ng/mL (50-75 nmol/L)Sufficiency: 30-100 ng/mL (75-250 nmol/L)Toxicity: >100 ng/mL (>250 nmol/L) Start: 10-21-2024 Urnls dip stick/tabl et reagent auto microscopy Dr. Soo Ladd MD Work Phone: Start: 10-21-2024 Computed tomography of abdomen and pelvis with intravenous contrast Dr. Soo Ladd MD Work Phone: Start: 10-21-[address] Soo Ladd MD Work Phone: Start: 08-01-2024 Computed tomography of abdomen and pelvis with contrast Dr. Soo Ladd MD Work Phone: Start: 06-07-2024 X-ray of chest, PA a nd lateral views Dr. Soo Ladd MD Work Phone: Start: 06-05-[address] Donavan Ladd MD Work Phone: Comment on above: Performed at: [address] [id number] Director: Santi Singletary PhD, Phone: [phone] Start: 06-05-2024 Antibody to centrome re measurement Dr. Soo Ladd MD Work Phone: Comment on above: Test not performed Start: 06-05-2024 Antibody to extracta ble nuclear antigen measurement Dr. Soo Ladd MD Work Phone: Comment on above: Test not performed Start: 06-05-2024 Antibody to KARIME-[address] Soo Ladd MD Work Phone: Comment on above: Test not performed Start: 06-05-2024 Antibody to lupus La protein measurement Dr. Soo Ladd MD Work Phone: Comment on above: Test not performed Start: 06-05-2024 Antibody to SS-A measurement Dr. Soo Ladd MD Work Phone: Comment on above: Test not performed Start: 06-05-[address] Soo Ladd MD Work Phone: Comment on above: Test not performed Start: 06-05-2024 HOME VISITS NURSE antibody measurement Dr. Soo Ladd MD Work Phone: Comment on above: Test not performed Start: 03-13-2023 Computed tomography of abdomen and pelvis with contrast Dr. Soo Ladd Work Phone: Start: 12-16-2022 Hysteroscopy,D&C Sym phion (Not Applicable) Dr. Soo Ladd Work Phone: Start: 10-17-2022 Smr prim src gram/gi emsa stain bct fungi/cell Anali Jacky FILM OR VIDEOTAPE EDITOR.CARTON LINER Work Phone: Start: 08-05-[address] Start: 07-14-2022 MRI of lumbar spine Dr. Soo Ladd Work Phone: Start: 05-02-2022 Plain x-ray of pelvi s and lower extremity Dr. Soo Ladd Work Phone: Start: 05-02-2022 X-ray of lumbar spin e, two or three views Dr. Soo Ladd Work Phone: Start: 12-31-[address] Esme Ladd Work Phone: Start: 07-19-2021 Dxa bone density paige dy 1/> sites axial skel Anali Fernandezf FILM OR VIDEOTAPE EDITOR.CARTON LINER Work Phone: Start: 07-19-2021 End: 07-19-2021 Mammography Anali [place] FILM OR VIDEOTAPE EDITOR.CARTON LINER Work Phone: Start: 05-25-2020 Mammography [facility] FILM OR VIDEOTAPE EDITOR.CARTON LINER Work Phone: Start: 09-15-2017 Antibody screen Parker ritter Comment on above: Order Comment: Campu s: MPatient transfused or in the past 3 months: NOIs This Patient Going To Surgery? YSurgery Date: 09/15/17 Start: 11-13-2013 Colonoscopy Anali [facility] FILM OR VIDEOTAPE EDITOR.CARTON LINER Work Phone: Start: 05-02-2012 Lipid 1996 panel - S clarke or Plasma Anali [place] FILM OR VIDEOTAPE EDITOR.CARTON LINER Work Phone: Plan of Treatment Date Care Activity Detail Author Start: 06-28-2030 RSV Vaccine (1 - 1-d ose 75+ series) RSV Vaccine (1 - 1-dose 75+ series) [facility] Start: 08-07-2025 End: 08-07-2025 Patient encounter procedure 08/07/2025 3:30 PM EDT Office Visit OB/Gynecology [address] [place] [address] Anali Rico FILM OR VIDEOTAPE EDITOR.CARTON LINER [address] [place] [address] Annual OB/Gynecology Comment on above: Annual Start: 12-05-2024 DXA Bone [Mass/Area] Bone density [facility] Start: 11-08-2024 End: 11-08-2024 Patient encounter procedure Mammogram Comment on above: Encounter for gyneco logical examination (general) (routine) without abnormal findings [Z01.419]; Encounter for screening mammogram for breast cancer [Z12.31] Osteopenia of lumbar spine [M85.88] Start: 10-21-2024 [facility] Start: 08-17-2024 Screening for malign ant neoplasm of breast Mammogram Screening [facility] Start: 08-05-2024 End: 08-05-2024 Patient encounter procedure 08/05/2024 3:30 PM EDT Office Visit OB/Gynecology [address] [place] [address] Anali Rico APRN.CARTON LINER [address] [address] Annual OB/Gynecology Comment on above: Annual Start: 02-28-2024 Advance Directive Discussion Advance Directive Discussion [facility] Start: 01-29-2024 End: 01-29-2024 Follow-up encounter 01/29/2024 11:00 AM EST Education Nutrition Therapy [address] [place] [address] [place] [address] 6 week follow up Nutrition Therapy Comment on above: 6 week follow up Start: 12-18-2023 End: 12-18-2023 Follow-up encounter 12/18/2023 11:00 AM EDT Education Nutrition Therapy [address] [place] [address] [place] [address] 6 week follow up Nutrition Therapy Comment on above: 6 week follow up Start: 11-14-2023 Colonoscopy COLONOSCOPY [facility] Start: 11-14-2023 COLORECTAL CANCER SCREENING COLORECTAL CANCER SCREENING [facility] Start: 11-14-2023 Screening for malign ant neoplasm of colon [facility] Start: 11-06-2023 End: 11-06-2023 Follow-up encounter 11/06/2023 9:30 AM EDT Education Nutrition Therapy [address] [place] [address] [place] [address] 6 week follow up Nutrition Therapy Comment on above: 6 week follow up Start: 10-29-2023 Covid-19 Vaccine () Covid-19 Vaccine () [facility] Start: 10-29-2023 Covid-19 Vaccine () Covid-19 Vaccine () [facility] Start: 10-29-2023 Influenza vaccination Influenza Vacc ine (#1) [facility] Start: 09-18-2023 End: 09-18-2023 Follow-up encounter 09/18/2023 10:15 AM EDT Education Nutrition Therapy [address] [place] [address] [place] [address] follow up Nutrition Therapy Comment on above: follow up Start: 08-24-2023 End: 08-24-2023 Patient encounter procedure 08/24/2023 12:45 PM EDT Office Visit OB/Gynecology [address] [place] [address] Anali Rico APRN.CARTON LINER [address] [place] [address] EC Follow up OB/Gynecology Comment on above: EC Follow up Start: 08-18-2023 End: 08-18-2023 Patient encounter procedure 08/18/2023 11:30 AM EDT Appointment Mammogram [address] [place] [address] Encounter for screening mammogram for breast cancer [Z12.31] Mammogram Comment on above: Encounter for screen ing mammogram for breast cancer [Z12.31] Start: 08-07-2023 End: 08-07-2023 Follow-up encounter 08/07/2023 1:00 PM EDT Education Nutrition Therapy [address] [place] [address] Samantha Jama, RD [address] [place] [address] 6 week follow up Nutrition Therapy Comment on above: 6 week follow up Start: 08-06-2023 Mammography [facility] Start: 08-06-2023 Screening for malign ant neoplasm of breast Mammogram Screening [facility] Start: 08-04-2023 End: 08-04-2023 Patient encounter procedure 08/04/2023 11:30 AM EDT Appointment Radiology [address] [place] [address] PMB (postmenopausal bleeding) [N95.0] Radiology Comment on above: PMB (postmenopausal bleeding) [N95.0] Start: 04-11-2023 Covid-19 Vaccine () Covid-19 Vaccine () [facility] Start: 02-27-2023 Advance Directive Discussion Advance Directive Discussion [facility] Start: 02-27-2023 Behavioral Health Screening Behavioral Health Screening [facility] Start: 02-27-2023 Depression Assessment Depression Ass essment [facility] Start: 12-16-2022 Ambulation without limitation [facility] Start: 12-16-2022 Medical regimen orde rs management [facility] Start: 12-16-2022 Medication education [facility] Start: 12-16-2022 Patient discharge [facility] Start: 12-16-2022 Procedure discontinued [facility] Start: 12-16-2022 Taking patient vital signs [facility] Start: 12-16-2022 Vital signs measurements [facility] Start: 12-16-2022 [facility] Start: 12-16-2022 Anes hysteroscopy&/hysterosalp ingography w/bx ANESTH HYSTEROSCOPE/GRAPH [facility] Start: 12-16-2022 Hysteroscopy bx endometrium&/polypc w/wo d&c HYSTEROSCOPY BIOPSY [facility] Start: 10-28-2022 Covid-19 Vaccine () Covid-19 Vaccine (2022-24 season) [facility] Start: 10-28-2022 Influenza vaccination [facility] Start: 09-21-2022 Quantitative measure ment of cryoglobulin in serum specimen [facility] Start: 07-29-2022 Patient referral [facility] Work Phone: Start: 07-19-2022 Mammography MAMMOGRAM [facility] Start: 05-02-2022 Patient referral [facility] Work Phone: Start: 02-27-2022 ADVANCE DIRECTIVE DISCUSSION ADVANCE DIRECTIVE DISCUSSION [facility] Start: 02-27-2022 DEPRESSION ASSESSMENT DEPRESSION ASS ESSMENT [facility] Start: 12-31-2021 Patient discharge [facility] Work Phone: Start: 10-28-2021 Influenza vaccination [facility] Start: 10-11-2021 COVID-19 VACCINE (5 - Booster for Moderna series) COVID-19 VACCINE (5 - Booster for Moderna series) [facility] Start: 10-11-2021 COVID-19 VACCINE (5 - Moderna series) COVID-19 VACCINE (5 - Moderna series) [facility] Start: 06-02-2021 COVID-19 VACCINE (4 - Booster for Moderna series) COVID-19 VACCINE (4 - Booster for Moderna series) [facility] Start: 05-25-2021 Mammography MAMMOGRAM [facility] Start: 02-27-2021 ADVANCE DIRECTIVE DISCUSSION ADVANCE DIRECTIVE DISCUSSION [facility] Start: 02-27-2021 DEPRESSION ASSESSMENT DEPRESSION ASS ESSMENT [facility] Start: 06-28-2020 BONE DENSITY BONE DENSITY [facility] Start: 06-28-2020 Pneumococcal Vaccine : 65+ (1 - PCV) Pneumococcal Vaccine: 65+ (1 - PCV) [facility] Start: 06-28-2020 Pneumococcal Vaccine : 65+ (1 of 1 - PCV) Pneumococcal Vaccine: 65+ (1 of 1 - PCV) [facility] Start: 06-28-2020 PNEUMOCOCCAL: 65+ (1 - PCV) PNEUMOCOCCAL: 65+ (1 - PCV) [facility] Start: 06-28-2020 PNEUMOVAX AGE 65 AND OVER WITH 5YR LOOKBACK (#1) PNEUMOVAX AGE 65 AND OVER WITH 5YR LOOKBACK (#1) [facility] Start: 05-02-2017 Lipid 1996 panel - S clarke or Plasma Lipid Screening [facility] Start: 05-02-2017 Lipid panel Lipid Screening [facility] Start: 05-02-2017 LIPID SCREEN LIPID SCREEN [facility] Start: 05-02-2017 Urine microalbumin profile [facility] Start: 2015 RSV Vaccine (1 - 1-d ose 60+ series) RSV Vaccine (1 - 1-dose 60+ series) [facility] Start: 05-03-2015 DIABETES SCREEN DIABETES SCREEN [facility] Start: 05-03-2015 Diabetes Screening Diabetes Screenin g [facility] Start: 03-24-2014 Shingrix Vaccine (2 of 3) Mills grix Vaccine (2 of 3) [facility] Start: 06-28-2005 Pneumococcal Vaccine : 50+ (1 of 1 - PCV) Pneumococcal Vaccine: 50+ (1 of 1 - PCV) [facility] Start: 06-28-2005 SHINGRIX VACCINE (1 of 2) MILLS GRIX VACCINE (1 of 2) [facility] Start: 06-28-2000 COLOGUARD (FIT-DNA) COLOGUARD (FIT-D NA) [facility] Start: 06-28-[address] COLONOGRAPHY [facility] Start: 06-28-2000 FECAL OCCULT BLOOD FECAL OCCULT BLOO D [facility] Start: 06-28-2000 Screening for malign ant neoplasm of colon [facility] Start: 06-28-2000 SIGMOIDOSCOPY SIGMOIDOSCOPY [facility] Start: 06-28-1973 Anxiety Screening Anxiety Screening [facility] Start: 06-28-1973 Depression Screening Depression Scre ening [facility] Start: 06-28-1973 HEPATITIS C SCREENING HEPATITIS [facility] Start: 06-28-1973 Hepatitis C screening Hepatitis C [facility] Start: 06-28-1973 HIV SCREENING HIV SCREENING [facility] Start: 1967 Adult depression screening assessment DEPRESSION SCREENING [facility] Albumin/Globulin [Ma ss Ratio] in Serum or Plasma by Electrophoresis [facility] BACTERIAL VAGINOSIS NAAT BACTERI AL VAGINOSIS NAAT Lab Routine Vaginal irritation Vaginal odor 03/21/2024 10:56 AM EST [facility] End: 09-04-2025 BD DXA TRABECULAR BONE SCORE (TBS) BD DXA TRABECULAR BONE SCORE (TBS) Radiology Routine Osteopenia of lumbar spine 1 Occurrences starting 08/05/2024 until 09/04/2025 [facility] Comment on above: 1 Occurrences starti ng 08/05/2024 until 09/04/2025 Blood chemistry [facility] SHARLENE/TRICHOMONAS NAAT SHARLENE /TRICHOMONAS NAAT Lab Routine Vaginal irritation Vaginal odor 03/21/2024 10:56 AM EST [facility] Work Phone: CBC W Auto Different ial panel - Blood [facility] Comprehensive metabo lic 2000 panel - Serum or Plasma [facility] Cryoglobulin [Presen ce] in Serum [facility] CT Abdomen and Pelvi s W contrast IV [facility] End: 09-04-2025 DBT Breast - bilateral screening MONAE SCREENING W HILARY Radiology Routine Encounter for gynecological examination (general) (routine) without abnormal findings Encounter for screening mammogram for breast cancer 1 Occurrences starting 08/05/2024 until 09/04/2025 [facility] Work Phone: Comment on above: 1 Occurrences starti ng 08/05/2024 until 09/04/2025 DXA Bone [Mass/Area] Bone density [facility] End: 07-24-2022 Dxa bone density study 1/> sites axial skel DXA-AXIAL SKELETON Radiology Routine Encounter for screening for osteoporosis 1 Occurrences starting 06/24/2021 until 07/24/2022 [facility] Work Phone: Comment on above: 1 Occurrences starti ng 06/24/2021 until 07/24/2022 End: 09-04-2025 DXA Skeletal system.axial Views for bone density DXA-AXIAL SKELETON Radiology Routine Osteopenia of lumbar spine 1 Occurrences starting 08/05/2024 until 09/04/2025 [facility] Comment on above: 1 Occurrences starti ng 08/05/2024 until 09/04/2025 Electrophoresis: albumin [facility] Electrophoresis: [id number] [facility] Electrophoresis: [id number] [facility] Electrophoresis: mino ma globulin [facility] Globulin measurement [facility] Hepatitis A virus Ab [Presence] in Serum [facility] Hepatitis B virus co re Ab [Presence] in Serum [facility] End: 08-26-2023 MONAE SCREENING MONAE SCREENING Radiology Routine Encounter for screening mammogram for malignant neoplasm of breast 1 Occurrences starting 07/28/2022 until 08/26/2023 [facility] Work Phone: Comment on above: 1 Occurrences starti ng 07/28/2022 until 08/26/2023 End: 09-01-2023 MONAE SCREENING MONAE SCREENING Radiology Routine Encounter for screening mammogram for breast cancer 1 Occurrences starting 08/02/2022 until 09/01/2023 [facility] Work Phone: Comment on above: 1 Occurrences starti ng 08/02/2022 until 09/01/2023 MG Breast Screening MONAE SCREENIN G Radiology Routine Encounter for screening mammogram for breast cancer 08/18/2023 11:30 AM EDT [facility] Work Phone: Microscopic observat ion [Identifier] in Vaginal fluid by Gram stain BACT/SHARLENE VAG GRAM STAIN Microbiology Routine Vaginal spotting Ordered: 06/03/2021 [facility] Work Phone: Comment on above: Ordered: 06/03/2021 Microscopic observat ion [Identifier] in Vaginal fluid by Gram stain BACT/SHARLENE VAG GRAM STAIN Microbiology Routine Vaginal irritation 12/02/2021 2:11 PM EDT [facility] Work Phone: Patient Education ED Understandi ng Colitis [facility] Work Phone: Patient referral [facility] Work Phone: Protein electrophore sis panel - Serum or Plasma [facility] Removal impacted cer umen irrigation/lvg unilat AMBULATORY EAR LAVAGE/IRRIGATION Procedures Routine Impacted cerumen of right ear Ordered: 12/23/2023 [facility] Work Phone: Comment on above: Ordered: 12/23/2023 End: 07-24-2022 Screening mammography bi 2-view breast inc cad MONAE SCREENING Radiology Routine Encounter for screening mammogram for malignant neoplasm of breast 1 Occurrences starting 06/24/2021 until 07/24/2022 [facility] Work Phone: Comment on above: 1 Occurrences starti ng 06/24/2021 until 07/24/2022 Serum protein electrophoresis [facility] SURGICAL PATHOLOGY SURGICAL PATH OLOGY Lab Routine PMB (postmenopausal bleeding) 11/18/2022 9:54 AM EDT [facility] Work Phone: T4 free measurement [facility] Thyroid stimulating hormone measurement [facility] Total globulins measurement [facility] End: 08-19-2024 US Pelvis transvaginal US FEMALE PELVIS TRANSVAG Radiology Routine PMB (postmenopausal bleeding) 1 Occurrences starting 07/21/2023 until 08/19/2024 [facility] Work Phone: Comment on above: 1 Occurrences starti ng 07/21/2023 until 08/19/2024 End: 12-18-2023 Us transvaginal US FEMALE PELVIS TRANSVAG Radiology Routine PMB (postmenopausal bleeding) 1 Occurrences starting 11/18/2022 until 12/18/2023 [facility] Work Phone: Comment on above: 1 Occurrences starti ng 11/18/2022 until 12/18/2023 Vitamin D, 25-hydrox y measurement [facility] Immunizations Immunization Date Immunization Notes Care Provider [facility] 12-14-2023 Influenza High-Dose Quadrivalent Dr. Soo Ladd MD Work Phone: [facility] 12-14-2023 influenza, high dose seasonal, preservative-free Dr. Soo Ladd MD Work Phone: [facility] 01-09-[address] Soo Ladd Work Phone: [facility] 12-13-2022 Influenza High-Dose Quadrivalent Dr. Soo Ladd MD Work Phone: [facility] 12-13-2022 influenza virus vaccine, unspecified formulation Samantha Jama RD [facility] 12-09-2022 Covid (Spikevax) Dr. Vadim Ladd MD Work Phone: [facility] 01-06-2022 Influenza High-Dose Quadrivalent Dr. Soo Ladd MD Work Phone: [facility] 01-06-2022 influenza virus vaccine, unspecified formulation Anali Rico [employer]ER Work Phone: [facility] 08-16-2021 Covid (Moderna) Dr. Lazaro Ladd MD Work Phone: [facility] 02-01-2021 Covid (Moderna) Dr. Lazaro Ladd MD Work Phone: [facility] 11-27-[address] Soo Ladd Work Phone: [facility] 06-18-2020 Covid (Moderna) Dr. Lazaro Ladd Work Phone: [facility] 05-28-2020 Covid (Moderna) Dr. Lazaro Ladd Work Phone: [facility] 05-21-2020 Covid (Moderna) Dr. Lazaro Ladd MD Work Phone: [facility] 11-15-2019 influenza, injectabl e, quadrivalent, preservative free Dr. Soo Ladd MD Work Phone: [facility] 11-09-2017 influenza, injectabl e, quadrivalent, preservative free Dr. Soo Ladd MD Work Phone: [facility] 11-28-2016 influenza, injectabl e, quadrivalent, preservative free Dr. Soo Ladd MD Work Phone: [facility] 12-22-2015 influenza, seasonal, injectable, preservative free Dr. Soo Ladd MD Work Phone: [facility] 03-06-2015 influenza, seasonal, injectable, preservative free Dr. Soo Ladd MD Work Phone: [facility] 05-03-2007 diphtheria and tetan us toxoids, adsorbed for pediatric use Anali Rico APRN.CNP Work Phone: [facility] Payers Date Payer Category Payer Self-pay [id number] 2023 Unknown [id number] 2023 Medicare (Managed Care) [facility] DUAL COMPLETE HMO POS SNP [id number] 2023 Medicaid [id number] 2023 Unknown [id number] 2020 Medicaid MEDICAID [facility] MEDICAID [id number] 2020-Present [phone] [address] [place] [address] Medicaid [id number] 2020 Medicaid [id number] 2020 Medicare UHC MEDICARE UHC DUAL COMPLETE HMO SNP [id number] 2020-Present [phone] [address] [place] [address] Medicare [id number] 2020 Medicare [id number] 2017 Medicaid [id number] 2012 Unknown [id number] Medicare [id number] Unknown [id number] 2.16.840.1.791092.3.579.2. 273 Unknown [id number] 2.16.840.1.938166.3.579.2. 273 Unknown [id number] 2.16.840.1.863892.3.579.2. 273 Unknown [id number] 2.16.840.1.876106.3.579.2. 273 Unknown [id number] 2.16.840.1.210567.3.579.2. 273 Unknown [id number] 2.16.840.1.413504.3.579.2. 273 Unknown [id number] 2.16.840.1.387010.3.579.2. 462 Unknown [id number] 2.16.840.1.740391.3.579.2. 462 Unknown [id number] 2.16.840.1.670303.3.579.2. 462 Unknown [id number] 2.16.840.1.218843.3.579.2. 462 Unknown [id number] 2.16.840.1.046901.3.579.2. 462 Unknown [id number] 2.16.840.1.846065.3.579.2. 462 Unknown [id number] 2.16.840.1.165420.3.579.2. 462 Unknown [id number] 2.16.840.1.194854.3.579.2. 462 Unknown [id number] 2.16.840.1.567015.3.579.2. 462 Unknown [id number] 2.16.840.1.892627.3.579.2. 462 Unknown [id number] 2.16.840.1.806171.3.579.2. 462 Unknown [id number] 2.16.840.1.570068.3.579.2. 462 Unknown [id number] 2.16.840.1.064865.3.579.2. 462 Unknown [id number] 2.16.840.1.854716.3.579.2. 462 Unknown [id number] 2.16.840.1.069246.3.579.2. 462 Unknown [id number] 2.16.840.1.151076.3.579.2. 462 Unknown [id number] 2.16.840.1.375539.3.579.2. 462 Unknown [id number] 2.16.840.1.661381.3.579.2. 462 Unknown [id number] 2.16.840.1.703099.3.579.2. 462 Social History Date Type Detail Facility Start: 06-08-2023 End: 10-21-2024 Tobacco smoking status NHIS Never smoked tobacco [facility] Work Phone: Start: 06-03-2021 End: 08-05-2024 Alcohol intake Current non-drinker of alcohol (finding) [facility] Start: 1955 Sex Assigned At Not on file [facility] Start: 05-24-2021 End: 12-02-2021 Exposure to SARS-CoV-2 (event) Not sure [facility] Work Phone: Start: 08-13-2021 End: 03-06-2023 Tobacco smoking status CAIS Unknown if ever smoked [facility] Start: 11-08-2019 Non-smoker [facility] Start: 1955 Sex Assigned At Female [facility] Start: 08-02-2022 End: 08-05-2024 History of Social function [facility] Start: 08-02-2022 End: 08-05-2024 Tobacco use panel [facility] National Score (1-100), lower number is lower risk 48 [facility] Start: 06-11-2024 End: 06-13-2024 Sex Female (finding) [facility] NEGATED: Highlighted row [facility] Medical Equipment Procedure Code Equipment Code Equipment Origin al Text Equipment Identifier Dates Arthroscopy, shoulder, with rotator cuff repair FIBERTAPE FDA Start: 11-22-2019 Arthroscopy, shoulder, with rotator cuff repair SCREW,TENODESIS 6.25x15 FDA Start: 11-22-2019 Arthroscopy, shoulder, with rotator cuff repair FIBERTAPE FDA Start: 11-22-2019 Arthroscopy, shoulder, with rotator cuff repair SCREW,TENODESIS 6.25x15 FDA Start: 11-22-2019 Arthroscopy, shoulder, with rotator cuff repair FIBERTAPE FDA Start: 11-22-2019 Arthroscopy, shoulder, with rotator cuff repair SCREW,TENODESIS 6.25x15 FDA Start: 11-22-2019 Arthroscopy, shoulder, with rotator cuff repair FIBERTAPE FDA Start: 11-22-2019 Arthroscopy, shoulder, with rotator cuff repair SCREW,TENODESIS 6.25x15 FDA Start: 11-22-2019 Arthroscopy, shoulder, with rotator cuff repair FIBERTAPE FDA Start: 11-22-2019 Arthroscopy, shoulder, with rotator cuff repair SCREW,TENODESIS 6.25x15 FDA Start: 11-22-2019 Arthroscopy, shoulder, with rotator cuff repair FIBERTAPE FDA Start: 11-22-2019 Arthroscopy, shoulder, with rotator cuff repair SCREW,TENODESIS 6.25x15 FDA Start: 11-22-2019 Arthroscopy, shoulder, with rotator cuff repair FIBERTAPE FDA Start: 11-22-2019 Arthroscopy, shoulder, with rotator cuff repair SCREW,TENODESIS 6.25x15 FDA Start: 11-22-2019 Arthroscopy, shoulder, with rotator cuff repair FIBERTAPE FDA Start: 11-22-2019 Arthroscopy, shoulder, with rotator cuff repair SCREW,TENODESIS 6.25x15 FDA Start: 11-22-2019 Arthroscopy, shoulder, with rotator cuff repair FIBERTAPE FDA Start: 11-22-2019 Arthroscopy, shoulder, with rotator cuff repair SCREW,TENODESIS 6.25x15 FDA Start: 11-22-2019 Arthroscopy, shoulder, with rotator cuff repair FIBERTAPE FDA Start: 11-22-2019 Arthroscopy, shoulder, with rotator cuff repair SCREW,TENODESIS 6.25x15 FDA Start: 11-22-2019 Arthroscopy, shoulder, with rotator cuff repair FIBERTAPE FDA Start: 11-22-2019 Arthroscopy, shoulder, with rotator cuff repair SCREW,TENODESIS 6.25x15 FDA Start: 11-22-2019 Arthroscopy, shoulder, with rotator cuff repair FIBERTAPE FDA Start: 11-22-2019 Arthroscopy, shoulder, with rotator cuff repair SCREW,TENODESIS 6.25x15 FDA Start: 11-22-2019 Arthroscopy, shoulder, with rotator cuff repair FIBERTAPE FDA Start: 11-22-2019 Arthroscopy, shoulder, with rotator cuff repair SCREW,TENODESIS 6.25x15 FDA Start: 11-22-2019 Arthroscopy, shoulder, with rotator cuff repair FIBERTAPE FDA Start: 11-22-2019 Arthroscopy, shoulder, with rotator cuff repair SCREW,TENODESIS 6.25x15 FDA Start: 11-22-2019 Arthroscopy, shoulder, with rotator cuff repair FIBERTAPE FDA Start: 11-22-2019 Arthroscopy, shoulder, with rotator cuff repair SCREW,TENODESIS 6.25x15 FDA Start: 11-22-2019 Arthroscopy, shoulder, with rotator cuff repair FIBERTAPE FDA Start: 11-22-2019 Arthroscopy, shoulder, with rotator cuff repair SCREW,TENODESIS 6.25x15 FDA Start: 11-22-2019 Arthroscopy, shoulder, with rotator cuff repair FIBERTAPE FDA Start: 11-22-2019 Arthroscopy, shoulder, with rotator cuff repair SCREW,TENODESIS 6.25x15 FDA Start: 11-22-2019 Arthroscopy, shoulder, with rotator cuff repair FIBERTAPE FDA Start: 11-22-2019 Arthroscopy, shoulder, with rotator cuff repair SCREW,TENODESIS 6.25x15 FDA Start: 11-22-2019 Arthroscopy, shoulder, with rotator cuff repair FIBERTAPE FDA Start: 11-22-2019 Arthroscopy, shoulder, with rotator cuff repair SCREW,TENODESIS 6.25x15 FDA Start: 11-22-2019 ([id number]) Ceramic femoral head prosthesis ()[id number] FDA Start: 12-08-2020 ([id number]) Coated hip femur prosthesis, modular ()[id number] FDA Start: 12-08-2020 ([id number]) Non-constrained polyethylene acetabular liner ()[id number] FDA Start: 12-08-2020 ([id number]) Acetabular shell [id number] FDA Start: 12-08-2020 ([id number]) Orthopaedic bone screw, non-bioabsorbable, sterile ()[id number] FDA Start: 12-08-2020 Goals Date Patient Goal Desired Activity /State Functional Status Date Assessment Result Facility 05-29-2014 Are you deaf, or do you have serious difficulty hearing No 05/29/2014 10:40 AM Sherly Davis LPN No [facility] 05-29-2014 Are you blind, or do you have serious difficulty seeing, even when wearing glasses No 05/29/2014 10:40 AM Sherly Davis LPN No [facility] 05-29-2014 Do you have serious difficulty walking or climbing stairs No 05/29/2014 10:40 AM Sherly Davis LPN No [facility] 05-29-2014 Do you have difficul ty dressing or bathing No 05/29/2014 10:40 AM Sherly Davis LPN No [facility] 05-29-2014 Because of a physica l, mental, or emotional condition, do you have difficulty doing errands alone such as visiting a physician's office or shopping No 05/29/2014 10:40 AM Sherly Davis LPN No [facility] Mental Status Date Assessment Result Facility 12-16-2022 Cognitive function Voice/Name [facility] Work Phone: 12-31-2021 Cognitive function Level Of Cons ciousness Drowsy [facility] Work Phone: 12-31-2021 Cognitive function Voice/Name [facility] Work Phone: 05-29-2014 Because of a physica l, mental, or emotional condition, do you have serious difficulty concentrating, remembering, or making decisions No 05/29/2014 10:40 AM EDT Sherly Rizo LPN No [facility] Clinical Notes 08-27-2007 to 12-03-2024 Note Date & Type Note Facility 12-03-2024 Note HNO ID: [id number] Author: FIDENCIO GARCES PA Service: ? Author Type: Physician Crystal Slicer Type: Progress Notes Filed: 12/03/2024 12:41 Note Text: URGENT CARE NILA Amanda Lomeli is a 69 year old female. Patient presents with: Abdominal Pain: LLQ abdominal spasms, intermittent with sharp pain increasing in frequency. X 1 day HPI The patient is a 69-year-old female with a history of diverticulitis, presenting with acute onset LLQ abdominal pain. LLQ Abdominal Pain: - Acute onset sharp, intermittent pain in the LLQ since yesterday. - Pain occurs every 5 minutes or longer. - Denies fever, emesis, diarrhea, or hematochezia. - Chronic constipation. - Recent colitis infection treated in the ER in early October; follow-up test showed no infection 1-2 weeks ago. - Unable to tolerate antibiotics for diverticulitis due to severe nausea, even with antiemetics. - Financial concerns about ER visits. PAST MEDICAL HISTORY Diagnosis Date Dysthymic disorder Depression (non-psychotic) Essential hypertension Generalized anxiety disorder Anxiety, Generalized Irritable bowel syndrome Irritable bowel Myalgia and myositis, unspecified Osteopenia after menopause 06/2021 PMB (postmenopausal bleeding) 2022,2023 Rotator cuff injury R side PAST SURGICAL HISTORY Procedure Laterality Date CHOLECYSTECTOMY Cholecystectomy COLONOSCOPY 05/2009 COLONOSCOPY FLX DX W/COLLJ SPEC WHEN PFRMD 05/2006 Colonoscopy COLONOSCOPY FLX DX W/COLLJ SPEC WHEN PFRMD 11/13/2013 ESOPHAGOGASTRODUODENOSCOPY TRANSORAL DIAGNOSTIC EGD ESOPHAGOGASTRODUODENOSCOPY TRANSORAL DIAGNOSTIC 11/13/2013 EGD HYSTEROSCOPY BX ENDOMETRIUMAND/POLYPC W/WO DANDC 12/16/2022 hysteroscopy DANCT INJECTION 12/07/2022 back NEUROPLASTY AND/TRANSPOS MEDIAN NRV CARPAL TUNNE Carpal tunnel decomp, right PAST SURGICAL HISTORY OF Removal bone spur right shoulder PAST SURGICAL HISTORY OF 09/15/2017 removal part of colon for diverticulitis SHOULDER SURGERY HX TONSILLECTOMY PRIMARY/SECONDARY Tonsillectomy ALLERGIES Reglan [Metoclopramide Hcl], Doxycycline, and Phentolamine MEDICATIONS vitamin b complex capsule Take 1 capsule by mouth once daily. Ascorbic Acid (VITAMIN C) 1,000 mg tablet Take 1,000 mg by mouth once daily. COLLAGEN MISC 1 scoop once daily. estradiol (ESTRACE) 0.01 % (0.1 mg/gram) vaginal cream Use 1 g vaginally at bedtime for 2 weeks then 3 times/weeks for maintenance. clobetasol (TEMOVATE) 0.05 % cream Apply to affected area 2x/day for 2 weeks. ofloxacin (FLOXIN) 0.3 % otic solution Use 5 Drops in both ears once daily. pantoprazole DR (PROTONIX) 40 mg tablet Take 40 mg by mouth once daily. OTC PRODUCT Take by mouth once daily. FD vanessa For acid reflux traMADol (ULTRAM) 50 mg tablet take 1 tablet by mouth at bedtime if needed for pain cetirizine (ZYRTEC) 10 mg tablet Take 10 mg by mouth once daily. azelastine (ASTELIN) 0.1% nasal spray instill 2 sprays into each nostril twice a day L. acidophilus-L. rhamnosus 15 billion cell cap Take 1 capsule by mouth once daily. FLORAJEN WOMEN. If on antibiotic, take at least 1-2 hours before or after antibiotic. KEEP REFRIGERATED RESTASIS MULTIDOSE 0.05 % drop put 1 drop in into both eyes twice a day fluorometholone (FML LIQUID FILM) 0.1 % ophthalmic suspension Use 1 Drop in both eyes twice daily. SENOKOT-S 8.6-50 mg per tablet Take 2 tablets by mouth daily at bedtime. Daily, Every other day to every other day as needed tiZANidine (ZANAFLEX) 4 mg tablet Take 1 tablet by mouth once daily. cyanocobalamin 1,000 mcg tab Take 1 tablet by mouth once daily. ergocalciferol, vitamin D2, 2,000 unit tab Take 1 tablet by mouth once each week. azithromycin (ZITHROMAX) 250 mg tablet Take 250 mg by mouth as directed. For dental. cephALEXin (KEFLEX) 500 mg capsule Take 500 mg by mouth as directed. 1 hour before dental appointment. FAMILY HISTORY Problem Relation Age of Onset Heart Mother Hypertension Mother Lipids Father Diabetes Paternal Grandmother Breast Cancer Maternal Aunt Breast Cancer Maternal Aunt SOCIAL HISTORY[1] Review of Systems Constitutional: (-) fever Gastrointestinal: (+) sharp intermittent left lower abdominal pain, (+) abdominal tenderness, (+) constipation, (-) vomiting, (-) diarrhea, (-) hematochezia Objective BP 159/73 Pulse 69 Temp 36.6 ?C (97.9 ?F) Resp 20 Wt 66 kg (145 lb 8.1 oz) LMP 08/31/2008 SpO2 97% BMI 28.42 kg/m? Physical Exam General: Not in acute distress, normal appearance, well-developed, not toxic-appearing Cardiovascular - Rate/Rhythm: Normal rate and regular rhythm - Heart Sounds: Normal heart sounds Pulmonary - Lung Sounds: Normal breath sounds - Respiratory Effort: Pulmonary effort normal Abdomen: Tenderness in the left lower quadrant, mild tenderness in the right lower quadrant Neurologic - Mental Status: Alert Skin: Skin warm and dry { 1. Le (more content not included)... [facility] 11-28-2024 Note HNO ID: [id number] Author: CARLTON MCGOWAN [email or web address] Service: ? Author Type: Press Cleaner Type: Progress Notes Filed: 11/28/2024 13:01 Note Text: Radiology Service Progress Note PATIENT NAME: Yvonne Lomeli DATE OF SERVICE: November 28, 2024 TIME: 1:01 PM PATIENT IDENTITY VERIFICATION COMPLETED USING TWO (2) IDENTIFIERS: Name and Date of confirmed by patient verbally. FALL SCREENING: Has the patient had 2 falls in the last year or 1 fall with injury or currently using an Ambulatory Assistive Device (Walker, Cane, Wheelchair, Crutches, etc.)? No PATIENT GENDER DATA: Assigned female at . status: : No status: NO. PATIENT RELEVANT IMPLANT DATA REVIEWED: Not Applicable PATIENT PRESENTS WITH AN IMPLANTABLE OR ATTACHED ATHLETIC MONITOR: No RADIOLOGY DEPARTMENT: Mammography PERIPHERAL IV DATA: Not applicable SIGNED BY: Carlton Mcgowan Zervanto Green Momit November 28, 2024 1:01 PM [facility] 10-21-2024 Radiology Diagnostic study note [facility] Imaging Services [address] [place] [address] Abdomen/Pelvis W IV Cont ONLY MR#: [id number] Acct: [id number] Name: YVONNE LOMELI Rep #: [id number] : 1955 F 69 From: Levon Perez MD PCP: Dr. Soo Ladd MD Status: R EG ER Study:Abdomen/Pelvis W IV Cont ONLY Date of E xam: 10/21/24 Exam# [id number] Ordering Dr: Marcos Valenzuela DO PROCEDURE: ABDOMEN/PELVIS W IV CONT ONLY 10/21/2024 REASON FOR EXAM: ABDOMINAL PAIN Left-sided abdominal pain and nausea. TECHNIQUE: ABDOMEN/PELVIS W IV CONT ONLY Coronal and Sagittal reconstruction series were provided. CONTRAST: Isovue 370 VOLUME: 100 mL One or more dose reduction techniques were used (e.g., Automated exposure control, adjustment of the mA and/or kV according to patient size, use of iterative reconstruction technique. RADIATION DOSE SUMMARY: CTDlvol: 14.9 mGy DLP: 811.99 mGycm COMPARISON: Prior study dated August 01, 2024. FINDINGS: Lung bases: Mild degree of dependent bibasilar atelectasis. Liver: Normal size. No mass. Gallbladder: Surgically absent. Spleen: Normal size. Pancreas: Normal size without evidence of mass surrounding inflammation or ductal dilation. Adrenals: Unremarkable Kidneys: Unremarkable Bladder: Unremarkable Reproductive Organs: Unremarkable Bowel: Circumferential wall thickening and increased markings in the surroundingperitoneal fat involving the splenic flexure and descending colon. Colitis should be ruled out. Sigmoid diverticulosis. Appendix: The appendix is not identified. There is no inflammatory process identified in the right lower quadrant to suggest appendicitis. Lymph nodes: Unremarkable. Vasculature: Mild diffuse atherosclerotic calcifications are noted. Peritoneum / Retroperitoneum: Unremarkable Bones: Minimal anterior listhesis of L4 on L5 due to facet joint osteoarthritis. Status post right total hip replacement. CT/Abdomen/Pelvis W IV Cont ONLY IMPRESSION: Findings suggestive of colitis of the splenic flexure and descending colon. Status post cholecystectomy. Stable grade 1 anterior listhesis of L4 on L5. Reading Location: [id number] CC: Dr. Soo Ladd MD; Dr. Marcos Valenzuela, DO ~ Market Specialist: Signed [facility] 08-13-2024 Evaluation note Diagnosis Onset Date Resolution RLQ abdominal pain acute July 282024 1:59pm Constipation chronic August 13, 2 025 1:59pm Change in skin mole acute Sepus 2024 2:00pm Anxiety and depression chronic Au 2024 2:00pm Constipation chronic October 03, 2024 2:00pm Dry mouth chronic October 03 2:00pm Fatigue chronic October 03 2:00pm Hypertension chronic October 03, 2024 2:00pm Lumbar radiculopathy chronic 2024 2:00pm Osteopenia with high risk of fracture chronic October 03 2:00pm Colitis acute November 01, 2024 3:22pm [facility] Work Phone: [phone]) 861-444906-09-2025 NoteHNO ID: [id number] Author: ANALI RICO APRN.CARTON LINER Service: ? Author Type: Nurse Practitioner Type: Progress Notes Filed: 08/05/2024 15:59 Note Text: Employment Manager offered: Patient declines. Yvonne is a 69 year old who presents for an annual gynecologic exam without complaints. 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 Comments: Sexual Activity: Not Currently; No partner data on record Contraception: No contraception data on record PAST MEDICAL HISTORY Diagnosis Date Dysthymic disorder Depression (non-psychotic) Essential hypertension Generalized anxiety disorder Anxiety, Generalized Irritable bowel syndrome Irritable bowel Myalgia and myositis, unspecified Osteopenia after menopause 06/2021 PMB (postmenopausal bleeding) 2022,2023 Rotator cuff injury R side PAST SURGICAL HISTORY Procedure Laterality Date CHOLECYSTECTOMY Cholecystectomy COLONOSCOPY 05/2009 COLONOSCOPY FLX DX W/COLLJ SPEC WHEN PFRMD 05/2006 Colonoscopy COLONOSCOPY FLX DX W/COLLJ SPEC WHEN PFRMD 11/13/2013 ESOPHAGOGASTRODUODENOSCOPY TRANSORAL DIAGNOSTIC EGD ESOPHAGOGASTRODUODENOSCOPY TRANSORAL DIAGNOSTIC 11/13/2013 EGD HYSTEROSCOPY BX ENDOMETRIUMAND/POLYPC W/WO DANDC 12/16/2022 hysteroscopy DANDC INJECTION 12/07/2022 back NEUROPLASTY AND/TRANSPOS MEDIAN NRV CARPAL TUNNE Carpal tunnel decomp, right PAST SURGICAL HISTORY OF Removal bone spur right shoulder PAST SURGICAL HISTORY OF 09/15/2017 removal part of colon for diverticulitis SHOULDER SURGERY HX TONSILLECTOMY PRIMARY/SECONDARY Tonsillectomy FAMILY HISTORY Problem Relation Age of Onset Heart Mother Hypertension Mother Lipids Father Diabetes Paternal Grandmother Breast Cancer Maternal Aunt Breast Cancer Maternal Aunt SOCIAL HISTORY Social History Tobacco Use Smoking status: Never Smokeless tobacco: Never Vaping Use Vaping status: Never Used Substance Use Topics Alcohol use: No Drug use: No REVIEW OF SYSTEMS Abdomen: No abdominal pain, nausea, vomiting, diarrhea, +constipation. No bloating, early satiety, indigestion, or increased flatulence. Bladder: No dysuria, gross hematuria, +urinary frequency, +urinary urgency,+some incontinence- no longer using pessary Breast: No breast lumps, nipple d/c, overlying skin changes, redness or skin retraction Allergies and current medication updated:Yes SENSITIVE EXAM: The sensitive examination was discussed with the Patient or Patient's Authorized Nutrition Consultant. As applicable, any other physician, advance practice provider, medical student, or other health professional student that will be observing or involved in the sensitive examination for educational or training purposes was discussed with the Patient or Authorized Nutrition Consultant. The Patient or Authorized Nutrition Consultant has agreed to proceed with the sensitive examination. (Sensitive examination includes inspection and/or palpation of the breasts, pelvis, prostate and anorectal regions). EXAM: BP 136/76 Ht 5' 0" (1.52m) Wt 150 lb (68.0kg) LMP 08/31/2008 BMI 29.30 kg/(m2). GENERAL: pleasant, female in no apparent distress HEENT: Normocephalic, atraumatic, mucus membranes moist, and no lesions DERMATOLOGY: Normal, without lesions, non-icteric, and non-hirsute BREAST: soft, non-tender, symmetric, no dominant mass, normal nipple-areolar complex, no lymphadenopathy, and no nipple discharge CHEST: Normal inspiratory effort ABDOMEN: soft, non-tender, and no masses PELVIC: external genitalia normal, normal Bartholin's glands, urethra, [place]'s glands, no vulvar lesions, no cervical lesions, physiologic discharge present, normal appearing perineal body and perianal region BIMANUAL: uterus normal size, shape and consistency, no adnexal masses, and non-tender RECTOVAGINAL: deferred. NEURO: alert and oriented x3,exam grossly non-focal EXTREMITIES: normal ASSESSMENT/PLAN: 1) Health maintenance: Pap/HPV screening no longer needed Mammogram ordered Nutrition, exercise and routine health maintenance exams reviewed. Calcium/Vitamin D supplementation information provided. Colon cancer screening: up to date with screening BMD: ordered 2) Follow up one year or sooner as needed Anali Rico APRN.[facility]06-09-2025 History of Present illness Narrative* Anali Rico APRN.CARTON LINER - 08/05/2024 3:15 PM EDT Employment Manager offered: Patient declines. Yvonne is a 69 year old who presents for an annual gynecologic exam without complaints. 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 Comments: Sexual Activity: Not Currently; No partner data on record Contraception: No contraception data on record PAST MEDICAL HISTORY Diagnosis Date Dysthymic disorder Depression (non-psychotic) Essential hypertension Generalized anxiety disorder Anxiety, Generalized Irritable bowel syndrome Irritable bowel Myalgia and myositis, unspecified Osteopenia after menopause 06/2021 PMB (postmenopausal bleeding) 2022,2023 Rotator cuff injury R side PAST SURGICAL HISTORY Procedure Laterality Date CHOLECYSTECTOMY Cholecystectomy COLONOSCOPY 05/2009 COLONOSCOPY FLX DX W/COLLJ SPEC WHEN PFRMD 05/2006 Colonoscopy COLONOSCOPY FLX DX W/COLLJ SPEC WHEN PFRMD 11/13/2013 ESOPHAGOGASTRODUODENOSCOPY TRANSORAL DIAGNOSTIC EGD ESOPHAGOGASTRODUODENOSCOPY TRANSORAL DIAGNOSTIC 11/13/2013 EGD HYSTEROSCOPY BX ENDOMETRIUM&/POLYPC W/WO D&C 12/16/2022 hysteroscopy D&C INJECTION 12/07/2022 back NEUROPLASTY &/TRANSPOS MEDIAN NRV CARPAL TUNNE Carpal tunnel decomp, right PAST SURGICAL HISTORY OF Removal bone spur right shoulder PAST SURGICAL HISTORY OF 09/15/2017 removal part of colon for diverticulitis SHOULDER SURGERY HX TONSILLECTOMY PRIMARY/SECONDARY <AGE 12 Tonsillectomy FAMILY HISTORY Problem Relation Age of Onset Heart Mother Hypertension Mother Lipids Father Diabetes Paternal Grandmother Breast Cancer Maternal Aunt Breast Cancer Maternal Aunt SOCIAL HISTORY Social History Tobacco Use Smoking status: Never Smokeless tobacco: Never Vaping Use Vaping status: Never Used Substance Use Topics Alcohol use: No Drug use: No REVIEW OF SYSTEMS Abdomen: No abdominal pain, nausea, vomiting, diarrhea, +constipation. No bloating, early satiety, indigestion, or increased flatulence. Bladder: No dysuria, gross hematuria, +urinary frequency, +urinary urgency,+some incontinence- no longer using pessary Breast: No breast lumps, nipple d/c, overlying skin changes, redness or skin retraction Allergies and current medication updated:Yes SENSITIVE EXAM: The sensitive examination was discussed with the Patient or Patient's Authorized Nutrition Consultant. As applicable, any other physician, advance practice provider, medical student, or other health professional student that will be observing or involved in the sensitive examination for educational or training purposes was discussed with the Patient or Authorized Nutrition Consultant. The Patient or Authorized Nutrition Consultant has agreed to proceed with the sensitive examination. (Sensitive examination includes inspection and/or palpation of the breasts, pelvis, prostate and anorectal regions). EXAM: BP 136/76 Ht 5' 0" (1.52m) Wt 150 lb (68.0kg) LMP 08/31/2008 BMI 29.30 kg/(m^2). GENERAL: pleasant, female in no apparent distress HEENT: Normocephalic, atraumatic, mucus membranes moist, and no lesions DERMATOLOGY: Normal, without lesions, non-icteric, and non-hirsute BREAST: soft, non-tender, symmetric, no dominant mass, normal nipple-areolar complex, no lymphadenopathy, and no nipple discharge CHEST: Normal inspiratory effort ABDOMEN: soft, non-tender, and no masses PELVIC: external genitalia normal, normal Bartholin's glands, urethra, [place]'s glands, no vulvar lesions, no cervical lesions, physiologic discharge present, normal appearing perineal body and perianal region BIMANUAL: uterus normal size, shape and consistency, no adnexal masses, and non-tender RECTOVAGINAL: deferred. NEURO: alert and oriented x3,exam grossly non-focal EXTREMITIES: normal ASSESSMENT/PLAN: 1) Health maintenance: Pap/HPV screening no longer needed Mammogram ordered Nutrition, exercise and routine health maintenance exams reviewed. Calcium/Vitamin D supplementation information provided. Colon cancer screening: up to date with screening BMD: ordered 2) Follow up one year or sooner as needed Anali Rico APRN.CARTON LINER [facility] Radiology Diagnostic study note [facility] Imaging Services [address] [place], [place] [id number] Abdomen/Pelvis WITH Contrast MR#: [id number] Acct: [id number] Name: YVONNE LOMELI Rep #: [id number] : 1955 F 69 From: Bailee Nova MD PCP: Dr. Soo Ladd MD Status: R EG CLI Study:Abdomen/Pelvis WITH Contrast Date of Ex am: 08/01/24 Exam# [id number] Ordering Dr: Saw Jones BEHAVIOR MANAGEMENT SPECIALIST-C PROCEDURE: ABDOMEN/PELVIS WITH CONTRAST 08/01/2024 REASON FOR EXAM: LLQ ABD PAIN TECHNIQUE: Abdomen and pelvis CT with intravenous and oral contrast. Coronal and Sagittal reconstruction series were provided. PATIENT PREPARATION: Per protocol CONTRAST: 95 mL Isovue-300 One or more dose reduction techniques were used (e.g., Automated exposure control, adjustment of the mA and/or kV according to patient size, use of iterative reconstruction technique. RADIATION DOSE SUMMARY: CTDlvol: 16.6 mGy DLP: 781 mGycm COMPARISON: CT abdomen and pelvis on 03/13/2023 FINDINGS: Lung bases: Unremarkable Liver: Normal size. No mass. Gallbladder: Surgically absent. Spleen: Normal size. Pancreas: Normal size without evidence of mass, surrounding inflammation, or ductal dilation. Adrenals: Unremarkable Kidneys: No hydronephrosis or stone. Subcentimeter hypodensities in the right kidney are too small to characterize. Bladder: Unremarkable Reproductive Organs: Unremarkable Bowel: Postoperative changes of the distal colon. No obstruction or inflammation. Colonic diverticulosis. Normal appendix. Lymph nodes: Unremarkable Vasculature: Mild diffuse atherosclerotic calcifications are noted. Bones: Right total hip arthroplasty. Grade 1 anterolisthesis of L4 on L5. CT/Abdomen/Pelvis WITH Contrast IMPRESSION: Unremarkable CT of the abdomen and pelvis. Reading Location: [id number] CC: FLORIAN Jones; Dr. Soo Ladd MD ~ Market Specialist: Signed [facility]05-12-2025 Evaluation note* Diagnosis Onset Date Resolution Status Admit Date Constipation chronic July 08 12:49pm RLQ abdominal pain acute July 282024 1:59pm Constipation chronic August 13, 2 025 1:59pm Change in skin mole acute Augus t 2024 2:00pm Anxiety and depression chronic Au 2024 2:00pm Constipation chronic October 03, 2024 2:00pm Dry mouth chronic October 03 2:00pm Fatigue chronic October 03 2:00pm Hypertension chronic October 03, 2024 2:00pm Lumbar radiculopathy chronic st 2024 2:00pm Osteopenia with high risk of fracture chronic October 03, 2024 2:00pm [facility] Work Phone: 1([phone]) 970-206105-12-2025 Evaluation note* Diagnosis Onset Date Resolution Status Admit Date Constipation chronic July 08 12:49pm RLQ abdominal pain acute July 282024 1:59pm Constipation chronic August 13, 2 025 1:59pm Change in skin mole acute Augus t 2024 2:00pm Anxiety and depression chronic Au 2024 2:00pm Constipation chronic October 03, 2024 2:00pm Dry mouth chronic October 03 2:00pm Fatigue chronic October 03 2:00pm Hypertension chronic October 03, 2024 2:00pm Lumbar radiculopathy chronic st 2024 2:00pm Osteopenia with high risk of fracture chronic October 03, 2024 2:00pm Colitis acute November 01, 2024 3:22pm [facility] Work Phone: 1(585) 750-638204-11-2025 Radiology Diagnostic study note [facility] Imaging Services [address] [place] [address] Chest PA and Lateral MR#: [id number] Acct: [id number] Name: YVONNE LOMELI Rep #: [id number] : 1955 F 68 From: Jaida Meraz MD PCP: Dr. Soo Ladd MD Status: R EG CLI Study:Chest PA and Lateral Date of Exam: 06/07/24 Exam# [id number] Ordering Dr: Alicia Ladd MD EXAM: XR Chest, 2 Views CLINICAL INDICATION: CHRONIC COUGH TECHNIQUE: Frontal and lateral views of the chest. COMPARISON: No relevant prior studies available. FINDINGS: LUNGS AND PLEURAL SPACES: Unremarkable. No consolidation. No pneumothorax. HEART: Unremarkable. No cardiomegaly. MEDIASTINUM: Unremarkable. Normal mediastinal contour. BONES/JOINTS: Unremarkable. No acute fracture. RAD/Chest PA and Lateral IMPRESSION: No acute cardiopulmonary process. Reading [facility] CC: Dr. Soo Ladd MD ~ Market Specialist: Signed [facility]04-09-2025 Evaluation note* Diagnosis Onset Date Resolution Status Admit Date Health care maintenance acute A pril 2024 9:07am Anxiety chronic June 05 9:07am Chronic cough chronic June 05, 2024 9:07am Dry mouth chronic June 05 9:07am GERD (gastroesophageal reflu x disease) chronic June 05, 2024 9:07am Hypertension chronic June 05, 2 025 9:07am Chronic cough chronic June 07, 2024 2:27pm [facility] Work Phone: [phone]) [phone] Evaluation note* Diagnosis Onset Date Resolution Status Admit Date Health care maintenance acute A pril 2024 9:07am Anxiety chronic June 05 9:07am Chronic cough chronic June 05, 2024 9:07am Dry mouth chronic June 05 9:07am GERD (gastroesophageal reflu x disease) chronic June 05, 2024 9:07am Hypertension chronic June 05, 2 025 9:07am Chronic cough chronic June 07, 2024 2:27pm Constipation chronic July 08 12:49pm [facility] Work Phone: [phone]) [phone] Evaluation note* Diagnosis Onset Date Resolution Status Admit Date Health care maintenance acute A pril 2024 9:07am Anxiety chronic June 05 9:07am Chronic cough chronic June 05, 2024 9:07am Dry mouth chronic June 05 9:07am GERD (gastroesophageal reflu x disease) chronic June 05, 2024 9:07am Hypertension chronic June 05, 2 025 9:07am Chronic cough chronic June 07, 2024 2:27pm Constipation chronic July 08 12:49pm RLQ abdominal pain acute July 282024 1:59pm Constipation chronic August 13, 2 025 1:59pm [facility] Work Phone: [phone]) 702-904101-24-2025 Telephone encounter Note* Telephone Encounter - Donato Lang RN - 03/22/2024 8:40 AM EST Pt notified and voiced understanding. Donato Lang RN [facility]01-24-2025 Miscellaneous Notes* Telephone Encounter - Donato Lang RN - 03/22/2024 8:40 AM EST Pt notified and voiced understanding. Donato Lang, RN * Telephone Encounter - Anali Rico APRN.CNP - 03/22/2024 7:05 AM EST +yeast- Diflucan sent. Anali Rico APRN.CNP [facility] Telephone encounter Note * Telephone Encounter - Anali Rico APRN.CNP - 03/22/2024 7:05 AM EST +yeast- Diflucan sent. Anali Rico APRN.CNP [facility]01-23-2025 NoteHNO ID: [id number] Author: ANALI RICO APRN.CNP Service: ? 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 Yvonne Lomeli is a 68 year old female who presents for problem visit vaginal irritation for 2 week(s). HPI: Patient has noticed increase in vaginal irritation and irritation to the inner labia minora has. She has decreased the use of the vaginal estrogen cream due to not being able to get a refill when she runs out. She states that she does notice an occasional vaginal odor, but has not seen any unusual vaginal discharge. 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 Comments: Sexual Activity: Not Currently; No partner data on record Contraception: No contraception data on record PAST MEDICAL HISTORY Diagnosis Date Dysthymic disorder Depression (non-psychotic) Essential hypertension Generalized anxiety disorder Anxiety, Generalized Irritable bowel syndrome Irritable bowel Myalgia and myositis, unspecified Osteopenia after menopause 06/2021 PMB (postmenopausal bleeding) 2022,2023 Rotator cuff injury R side PAST SURGICAL HISTORY Procedure Laterality Date CHOLECYSTECTOMY Cholecystectomy COLONOSCOPY 05/2009 COLONOSCOPY FLX DX W/COLLJ SPEC WHEN PFRMD 05/2006 Colonoscopy COLONOSCOPY FLX DX W/COLLJ SPEC WHEN PFRMD 11/13/2013 ESOPHAGOGASTRODUODENOSCOPY TRANSORAL DIAGNOSTIC EGD ESOPHAGOGASTRODUODENOSCOPY TRANSORAL DIAGNOSTIC 11/13/2013 EGD HYSTEROSCOPY BX ENDOMETRIUMAND/POLYPC W/WO DANDC 12/16/2022 hysteroscopy DANDC INJECTION 12/07/2022 back NEUROPLASTY AND/TRANSPOS MEDIAN NRV CARPAL TUNNE Carpal tunnel decomp, right PAST SURGICAL HISTORY OF Removal bone spur right shoulder PAST SURGICAL HISTORY OF 09/15/2017 removal part of colon for diverticulitis SHOULDER SURGERY HX TONSILLECTOMY PRIMARY/SECONDARY Tonsillectomy FAMILY HISTORY Problem Relation Age of Onset Heart Mother Hypertension Mother Lipids Father Diabetes Paternal Grandmother Breast Cancer Maternal Aunt Breast Cancer Maternal Aunt Social History Tobacco Use Smoking status: Never Smokeless tobacco: Never Vaping Use Vaping status: Never Used Substance Use Topics Alcohol use: No Drug use: No Current Outpatient Medications Medication Sig azithromycin (ZITHROMAX) 250 mg tablet Take 250 mg by mouth as directed. For dental. cephALEXin (KEFLEX) 500 mg capsule Take 500 mg by mouth as directed. 1 hour before dental appointment. ofloxacin (FLOXIN) 0.3 % otic solution Use 5 Drops in both ears once daily. pantoprazole DR (PROTONIX) 40 mg tablet Take 40 mg by mouth once daily. OTC PRODUCT Take by mouth once daily. FD vanessa For acid reflux traMADol (ULTRAM) 50 mg tablet take 1 tablet by mouth at bedtime if needed for pain cetirizine (ZYRTEC) 10 mg tablet Take 10 mg by mouth once daily. azelastine (ASTELIN) 0.1% nasal spray instill 2 sprays into each nostril twice a day L. acidophilus-L. rhamnosus 15 billion cell cap Take 1 capsule by mouth once daily. FLORAJEN WOMEN. If on antibiotic, take at least 1-2 hours before or after antibiotic. KEEP REFRIGERATED RESTASIS MULTIDOSE 0.05 % drop put 1 drop in into both eyes twice a day SENOKOT-S 8.6-50 mg per tablet Take 2 tablets by mouth daily at bedtime. Daily, Every other day to every other day as needed tiZANidine (ZANAFLEX) 4 mg tablet Take 1 tablet by mouth once daily. cyanocobalamin 1,000 mcg tab Take 1 tablet by mouth once daily. ergocalciferol, vitamin D2, 2,000 unit tab Take 1 tablet by mouth once each week. (Patient taking differently: Take 1 tablet by mouth one time a week. Daily) estradiol (ESTRACE) 0.01 % (0.1 mg/gram) vaginal cream Use 1 g vaginally at bedtime for 2 weeks then 3 times/weeks for maintenance. clobetasol (TEMOVATE) 0.05 % cream Apply to affected area 2x/day for 2 weeks. fluorometholone (FML LIQUID FILM) 0.1 % ophthalmic suspension Use 1 Drop in both eyes twice daily. No current facility-administered medications for this visit. Allergies As of Date: 03/21/2024 Allergen Noted Reaction REGLAN [METOCLOPRAMIDE HCL] 11/06/2013 Swelling and Other: See Comments AMOXICILLIN 05/14/2020 Other: See Comments DOXYCYCLINE 08/29/2007 GI Upset PHENTOLAMINE 06/13/2022 Hives Fully Assessed 03/21/2024 REVIEW OF SYSTEMS Expanded ROS: N/A Allergies and current medication updated:Yes SENSITIVE EXAM: The sensitive examination was discussed with the Patient or Patient's Authorized Nutrition Consultant. 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 Yvonne Lomeli is a 68 year old female who presents for problem visit vaginal irritation for 2 week(s). HPI: Patient has noticed increase in vaginal irritation and irritation to the inner labia minora has. She has decreased the use of the vaginal estrogen cream due to not being able to get a refill when she runs out. She states that she does notice an occasional vaginal odor, but has not seen any unusual vaginal discharge. 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 Comments: Sexual Activity: Not Currently; No partner data on record Contraception: No contraception data on record PAST MEDICAL HISTORY Diagnosis Date Dysthymic disorder Depression (non-psychotic) Essential hypertension Generalized anxiety disorder Anxiety, Generalized Irritable bowel syndrome Irritable bowel Myalgia and myositis, unspecified Osteopenia after menopause 06/2021 PMB (postmenopausal bleeding) 2022,2023 Rotator cuff injury R side PAST SURGICAL HISTORY Procedure Laterality Date CHOLECYSTECTOMY Cholecystectomy COLONOSCOPY 05/2009 COLONOSCOPY FLX DX W/COLLJ SPEC WHEN PFRMD 05/2006 Colonoscopy COLONOSCOPY FLX DX W/COLLJ SPEC WHEN PFRMD 11/13/2013 ESOPHAGOGASTRODUODENOSCOPY TRANSORAL DIAGNOSTIC EGD ESOPHAGOGASTRODUODENOSCOPY TRANSORAL DIAGNOSTIC 11/13/2013 EGD HYSTEROSCOPY BX ENDOMETRIUM&/POLYPC W/WO D&C 12/16/2022 hysteroscopy D&C INJECTION 12/07/2022 back NEUROPLASTY &/TRANSPOS MEDIAN NRV CARPAL TUNNE Carpal tunnel decomp, right PAST SURGICAL HISTORY OF Removal bone spur right shoulder PAST SURGICAL HISTORY OF 09/15/2017 removal part of colon for diverticulitis SHOULDER SURGERY HX TONSILLECTOMY PRIMARY/SECONDARY <AGE 12 Tonsillectomy FAMILY HISTORY Problem Relation Age of Onset Heart Mother Hypertension Mother Lipids Father Diabetes Paternal Grandmother Breast Cancer Maternal Aunt Breast Cancer Maternal Aunt Social History Tobacco Use Smoking status: Never Smokeless tobacco: Never Vaping Use Vaping status: Never Used Substance Use Topics Alcohol use: No Drug use: No Current Outpatient Medications Medication Sig azithromycin (ZITHROMAX) 250 mg tablet Take 250 mg by mouth as directed. For dental. cephALEXin (KEFLEX) 500 mg capsule Take 500 mg by mouth as directed. 1 hour before dental appointment. ofloxacin (FLOXIN) 0.3 % otic solution Use 5 Drops in both ears once daily. pantoprazole DR (PROTONIX) 40 mg tablet Take 40 mg by mouth once daily. OTC PRODUCT Take by mouth once daily. FD vanessa For acid reflux traMADol (ULTRAM) 50 mg tablet take 1 tablet by mouth at bedtime if needed for pain cetirizine (ZYRTEC) 10 mg tablet Take 10 mg by mouth once daily. azelastine (ASTELIN) 0.1% nasal spray instill 2 sprays into each nostril twice a day L. acidophilus-L. rhamnosus 15 billion cell cap Take 1 capsule by mouth once daily. FLORAJEN WOMEN.If on antibiotic, take at least 1-2 hours before or after antibiotic. KEEP REFRIGERATED RESTASIS MULTIDOSE 0.05 % drop put 1 drop in into both eyes twice a day SENOKOT-S 8.6-50 mg per tablet Take 2 tablets by mouth daily at bedtime. Daily, Every other day to every other day as needed tiZANidine (ZANAFLEX) 4 mg tablet Take 1 tablet by mouth once daily. cyanocobalamin 1,000 mcg tab Take 1 tablet by mouth once daily. ergocalciferol, vitamin D2, 2,000 unit tab Take 1 tablet by mouth once each week. (Patient taking differently: Take 1 tablet by mouth one time a week. Daily) estradiol (ESTRACE) 0.01 % (0.1 mg/gram) vaginal cream Use 1 g vaginally at bedtime for 2 weeks then 3 times/weeks for maintenance. clobetasol (TEMOVATE) 0.05 % cream Apply to affected area 2x/day for 2 weeks. fluorometholone (FML LIQUID FILM) 0.1 % ophthalmic suspension Use 1 Drop in both eyes twice daily. No current facility-administered medications for this visit. Allergies As of Date: 03/21/2024 Allergen Noted Reaction REGLAN [METOCLOPRAMIDE HCL] 11/06/2013 Swelling and Other: See Comments AMOXICILLIN 05/14/2020 Other: See Comments DOXYCYCLINE 08/29/2007 GI Upset PHENTOLAMINE 06/13/2022 Hives Fully Assessed 03/21/2024 REVIEW OF SYSTEMS Expanded ROS: N/A Allergies and current medication updated:Yes SENSITIVE EXAM: The sensitive examination was discussed with the Patient or Patient's Authorized Nutrition Consultant. As applicable, any other physician, advance practice provider, medical student, or other health professional student that will be observing or involved in the sensitive examination for educational or training purposes was discussed with the Patient or Authorized Nutrition Consultant. The Patient or Authorized Nutrition Consultant has agreed to proceed with the sensitive examination. (Sensitive examination includes inspection and/or palpation of the breasts, pelvis, prostate and anorectal regions). EXAM: BP 122/64 Wt 150 lb 6.4 oz (68.2kg) LMP 08/31/2008 GENERAL: pleasant, female in no apparent distress HEENT: Normocephalic, atraumatic, mucus membranes moist, and no lesions CHEST: Normal inspiratory effort PELVIC: external genitalia normal, normal Bartholin's glands, urethra, [place]'s glands, no vulvar lesions, no cervical lesions, physiologic discharge present, normal appearing perineal body and perianal region BIMANUAL: deferred NEURO: alert and oriented x3,exam grossly non-focal EXTREMITIES: normal ASSESSMENT AND PLAN: Assessment & Plan Vaginal irritation Orders: SHARLENE/TRICHOMONAS NAAT BACTERIAL VAGINOSIS NAAT clobetasol (TEMOVATE) 0.05 % cream; Apply to affected area 2x/day for 2 weeks. Estrace cream increase to 1 gram 3x/wk Vaginal odor Orders: SHARLENE/TRICHOMONAS NAAT BACTERIAL VAGINOSIS NAAT Will notify patient of test results. Anali Rico APRN.MARTINA Medical Decision Making: Problems: Moderate: New problem with uncertain prognosis Data: Unique test(s) ordered: 2 Risk: Moderate: Drug management Medical Decision Making Level: 4 - Moderate [facility]* Dia Llamas LPN - 12/23/2023 3:15 PM EDT Right ear flushed with warm water/h2o2. Large amount of cerumen removed. Patient tolerated procedure well. Dia Llamas LPN [facility]10-26-[facility] Nurse Note* Dia Llamas LPN - 12/23/2023 3:15 PM EDT Right ear flushed with warm water/h2o2. Large amount of cerumen removed. Patient tolerated procedure well. Dia Llamas LPN documented [facility]24 NoteHNO ID: [id number] Author: ASHLIE WALL APRN.CARTON LINER Service: ? Author Type: Nurse Practitioner Type: Progress Notes Filed: 12/23/2023 12:57 Note Text: This note was created using NoteWriter. Subjective Yvonne Lomeli is a 68 year old female. 68 year old female with PMH fibromyalgia, GERD, presents for complaints of ear discomfort. Acute onset Over one week ago Right ear Feels clogged Last night left ear started to bother her. Denies accompanying URI sx Denies eye, nose or throat Denies fever or chills Denies cough Has had similar in past Has had ears irrigated, requesting the same presently The history is provided by the patient. No language teacher was used. Ear Problem There is pain in both ears. This is a new problem. The current episode started in the past 7 days. The problem occurs constantly. The problem has been unchanged. There has been no fever. The pain is at a severity of 3/10. The pain is mild. Associated symptoms include hearing loss. Pertinent negatives include no abdominal pain, coughing, diarrhea, ear discharge, headaches, neck pain, rash, rhinorrhea, sore throat or vomiting. She has tried nothing for the symptoms. The treatment provided no relief. There is no history of a chronic ear infection, hearing loss or a tympanostomy tube. PAST MEDICAL HISTORY Diagnosis Date - Dysthymic disorder Depression (non-psychotic) - Essential hypertension - Generalized anxiety disorder Anxiety, Generalized - Irritable bowel syndrome Irritable bowel - Myalgia and myositis, unspecified - Osteopenia after menopause 06/2021 - PMB (postmenopausal bleeding) 2022,2023 - Rotator cuff injury R side PAST SURGICAL HISTORY Procedure Laterality Date - CHOLECYSTECTOMY Cholecystectomy - COLONOSCOPY 05/2009 - COLONOSCOPY FLX DX W/COLLJ SPEC WHEN PFRMD 05/2006 Colonoscopy - COLONOSCOPY FLX DX W/COLLJ SPEC WHEN PFRMD 11/13/2013 - ESOPHAGOGASTRODUODENOSCOPY TRANSORAL DIAGNOSTIC EGD - ESOPHAGOGASTRODUODENOSCOPY TRANSORAL DIAGNOSTIC 11/13/2013 EGD - HYSTEROSCOPY BX ENDOMETRIUMAND/POLYPC W/WO DANDC 12/16/2022 hysteroscopy DANDC - INJECTION 12/07/2022 back - NEUROPLASTY AND/TRANSPOS MEDIAN NRV CARPAL TUNNE Carpal tunnel decomp, right - PAST SURGICAL HISTORY OF Removal bone spur right shoulder - PAST SURGICAL HISTORY OF 09/15/2017 removal part of colon for diverticulitis - SHOULDER SURGERY HX - TONSILLECTOMY PRIMARY/SECONDARY Tonsillectomy ALLERGIES Reglan [Metoclopramide Hcl], Amoxicillin, Doxycycline, and Phentolamine MEDICATIONS - azithromycin (ZITHROMAX) 250 mg tablet Take 250 mg by mouth as directed. For dental. - cephALEXin (KEFLEX) 500 mg capsule Take 500 mg by mouth as directed. 1 hour before dental appointment. - estradiol (ESTRACE) 0.01 % (0.1 mg/gram) vaginal cream Use 0.5g vaginally at bedtime for 2 weeks then 1-3 time/weeks for maintenance. - pantoprazole DR (PROTONIX) 40 mg tablet Take 40 mg by mouth once daily. - OTC PRODUCT Take by mouth once daily. FD vanessa For acid reflux - traMADol (ULTRAM) 50 mg tablet take 1 tablet by mouth at bedtime if needed for pain - cetirizine (ZYRTEC) 10 mg tablet Take 10 mg by mouth once daily. - azelastine (ASTELIN) 0.1% nasal spray instill 2 sprays into each nostril twice a day - L. acidophilus-L. rhamnosus 15 billion cell cap Take 1 capsule by mouth once daily. FLORAJEN WOMEN. If on antibiotic, take at least 1-2 hours before or after antibiotic. KEEP REFRIGERATED - RESTASIS MULTIDOSE 0.05 % drop put 1 drop in into both eyes twice a day - fluorometholone (FML LIQUID FILM) 0.1 % ophthalmic suspension Use 1 Drop in both eyes twice daily. - SENOKOT-S 8.6-50 mg per tablet Take 2 tablets by mouth daily at bedtime. Daily, Every other day to every other day as needed - tiZANidine (ZANAFLEX) 4 mg tablet Take 1 tablet by mouth once daily. - cyanocobalamin 1,000 mcg tab Take 1 tablet by mouth once daily. - ergocalciferol, vitamin D2, 2,000 unit tab Take 1 tablet by mouth once each week. (Patient taking differently: Take 1 tablet by mouth one time a week. Daily) - ofloxacin (FLOXIN) 0.3 % otic solution Use 5 Drops in both ears once daily. - buPROPion XL (WELLBUTRIN XL) 150 mg 24 hr tablet Take 150 mg by mouth every morning. (Patient not taking: Reported on 12/23/2023) FAMILY HISTORY Problem Relation Age of Onset - Heart Mother - Hypertension Mother - Lipids Father - Diabetes Paternal Grandmother - Breast Cancer Maternal Aunt - Breast Cancer Maternal Aunt Social History Tobacco Use - Smoking status: Never - Smokeless tobacco: Never Vaping Use - Vaping status: Never Used Substance Use Topics - Alcohol use: No - Drug use: No Review of Systems Constitutional: Negative for activity change, appetite change, chills and diaphoresis. HENT: Positive for ear pain and hearing loss. Negative for ear discharge, rhinorrhea and sore throat. Eyes: Negative f (more content not included)...[facility] 12-23-2023 History of Present illness Narrative* Ashlie Wall APRN.CARTON LINER - 12/23/2023 11:13 AM EDT This note was created using One Source Networksriter. Subjective Yvonne Lomeli is a 68 year old female. 68 year old female with PMH fibromyalgia, GERD, presents for complaints of ear discomfort. Acute onset Over one week ago Right ear Feels clogged Last night left ear started to bother her. Denies accompanying URI sx Denies eye, nose or throat Denies fever or chills Denies cough Has had similar in past Has had ears irrigated, requesting the same presently The history is provided by the patient. No language teacher was used. Ear Problem There is pain in both ears. This is a new problem. The current episode started in the past 7 days. The problem occurs constantly. The problem has been unchanged. There has been no fever. The pain is at a severity of 3/10. The pain is mild. Associated symptoms include hearing loss. Pertinent negatives include no abdominal pain, coughing, diarrhea, ear discharge, headaches, neck pain, rash, rhinorrhea, sore throat or vomiting. She has tried nothing for the symptoms. The treatment provided no relief. There is no history of a chronic ear infection, hearing loss or a tympanostomy tube. PAST MEDICAL HISTORY Diagnosis Date Dysthymic disorder Depression (non-psychotic) Essential hypertension Generalized anxiety disorder Anxiety, Generalized Irritable bowel syndrome Irritable bowel Myalgia and myositis, unspecified Osteopenia after menopause 06/2021 PMB (postmenopausal bleeding) 2022,2023 Rotator cuff injury R side PAST SURGICAL HISTORY Procedure Laterality Date CHOLECYSTECTOMY Cholecystectomy COLONOSCOPY 05/2009 COLONOSCOPY FLX DX W/COLLJ SPEC WHEN PFRMD 05/2006 Colonoscopy COLONOSCOPY FLX DX W/COLLJ SPEC WHEN PFRMD 11/13/2013 ESOPHAGOGASTRODUODENOSCOPY TRANSORAL DIAGNOSTIC EGD ESOPHAGOGASTRODUODENOSCOPY TRANSORAL DIAGNOSTIC 11/13/2013 EGD HYSTEROSCOPY BX ENDOMETRIUM&/POLYPC W/WO D&C 12/16/2022 hysteroscopy D&C INJECTION 12/07/2022 back NEUROPLASTY &/TRANSPOS MEDIAN NRV CARPAL TUNNE Carpal tunnel decomp, right PAST SURGICAL HISTORY OF Removal bone spur right shoulder PAST SURGICAL HISTORY OF 09/15/2017 removal part of colon for diverticulitis SHOULDER SURGERY HX TONSILLECTOMY PRIMARY/SECONDARY <AGE 12 Tonsillectomy ALLERGIES Reglan [Metoclopramide Hcl], Amoxicillin, Doxycycline, and Phentolamine MEDICATIONS azithromycin (ZITHROMAX) 250 mg tablet Take 250 mg by mouth as directed. For dental. cephALEXin (KEFLEX) 500 mg capsule Take 500 mg by mouth as directed. 1 hour before dental appointment. estradiol (ESTRACE) 0.01 % (0.1 mg/gram) vaginal cream Use 0.5g vaginally at bedtime for 2 weeks then 1-3 time/weeks for maintenance. pantoprazole DR (PROTONIX) 40 mg tablet Take 40 mg by mouth once daily. OTC PRODUCT Take by mouth once daily. FD vanessa For acid reflux traMADol (ULTRAM) 50 mg tablet take 1 tablet by mouth at bedtime if needed for pain cetirizine (ZYRTEC) 10 mg tablet Take 10 mg by mouth once daily. azelastine (ASTELIN) 0.1% nasal spray instill 2 sprays into each nostril twice a day L. acidophilus-L. rhamnosus 15 billion cell cap Take 1 capsule by mouth once daily. FLORAJEN WOMEN.If on antibiotic, take at least 1-2 hours before or after antibiotic. KEEP REFRIGERATED RESTASIS MULTIDOSE 0.05 % drop put 1 drop in into both eyes twice a day fluorometholone (FML LIQUID FILM) 0.1 % ophthalmic suspension Use 1 Drop in both eyes twice daily. SENOKOT-S 8.6-50 mg per tablet Take 2 tablets by mouth daily at bedtime. Daily, Every other day to every other day as needed tiZANidine (ZANAFLEX) 4 mg tablet Take 1 tablet by mouth once daily. cyanocobalamin 1,000 mcg tab Take 1 tablet by mouth once daily. ergocalciferol, vitamin D2, 2,000 unit tab Take 1 tablet by mouth once each week. (Patient taking differently: Take 1 tablet by mouth one time a week. Daily) ofloxacin (FLOXIN) 0.3 % otic solution Use 5 Drops in both ears once daily. buPROPion XL (WELLBUTRIN XL) 150 mg 24 hr tablet Take 150 mg by mouth every morning. (Patient not taking: Reported on 12/23/2023) FAMILY HISTORY Problem Relation Age of Onset Heart Mother Hypertension Mother Lipids Father Diabetes Paternal Grandmother Breast Cancer Maternal Aunt Breast Cancer Maternal Aunt Social History Tobacco Use Smoking status: Never Smokeless tobacco: Never Vaping Use Vaping status: Never Used Substance Use Topics Alcohol use: No Drug use: No Review of Systems Constitutional: Negative for activity change, appetite change, chills and diaphoresis. HENT: Positive for ear pain and hearing loss. Negative for ear discharge, rhinorrhea and sore throat. Eyes: Negative for pain, discharge, redness and itching. Respiratory: Negative for apnea, cough and chest tightness. Cardiovascular: Negative for chest pain, palpitations and leg swelling. Gastrointestinal: Negative for abdominal pain, diarrhea and vomiting. Musculoskeletal: Negative for back pain, gait problem and neck pain. Skin: Negative for color change, pallor and rash. Allergic/Immunologic: Negative for environmental allergies, food allergies and immunocompromised state. Neurological: Negative for dizziness, facial asymmetry, light-headedness, numbness and headaches. Hematological: Negative for adenopathy. Does not bruise/bleed easily. Psychiatric/Behavioral: Negative for agitation and behavioral problems. Objective BP 137/67 Pulse (!) 57 Temp 36.4 C (97.6 F) (Right Tympanic) Resp 16 Wt 66.3 kg (146 lb 2.6oz) LMP 08/31/2008 SpO2 98% BMI 28.55 kg/m Physical Exam Vitals and nursing note reviewed. Constitutional: General: She is not in acute distress. Appearance: Normal appearance. She is normal weight. She is not ill-appearing, toxic-appearing or diaphoretic. HENT: Head: Normocephalic and atraumatic. Left Ear: Ear canal and external ear normal. Ears: Comments: Right EAC with impacted cerumen. Nursing irrigates (see nursing documentation) TM visualized EAC mild erythema. Nose: Nose normal. No congestion or rhinorrhea. Mouth/Throat: Mouth: Mucous membranes are moist. Pharynx: No oropharyngeal exudate or posterior oropharyngeal erythema. Eyes: General: Right eye: No discharge. Left eye: No discharge. Extraocular Movements: Extraocular movements intact. Conjunctiva/sclera: Conjunctivae normal. Pupils: Pupils are equal, round, and reactive to light. Cardiovascular: Rate and Rhythm: Normal rate and regular rhythm. Pulses: Normal pulses. Heart sounds: Normal heart sounds. No murmur heard. No friction rub. Pulmonary: Effort: Pulmonary effort is normal. No respiratory distress. Breath sounds: Normal breath sounds. No stridor. No wheezing, rhonchi or rales. Chest: Chest wall: No tenderness. Abdominal: General: Abdomen is flat. There is no distension. Palpations: Abdomen is soft. There is no mass. Tenderness: There is no abdominal tenderness. There is no right CVA tenderness, left CVA tenderness, guarding or rebound. Hernia: No hernia is present. Musculoskeletal: General: No swelling, tenderness, deformity or signs of injury. Normal range of motion. Cervical back: Normal range of motion and neck supple. No rigidity. Right lower leg: No edema. Left lower leg: No edema. Lymphadenopathy: Cervical: No cervical adenopathy. Skin: General: Skin is warm and dry. Coloration: Skin is not jaundiced or pale. Findings: No bruising, erythema, lesion or rash. Neurological: General: No focal deficit present. Mental Status: She is alert and oriented to person, place, and time. Cranial Nerves: No cranial nerve deficit. Sensory: No sensory deficit. Motor: No weakness. Coordination: Coordination normal. Gait: Gait normal. Psychiatric: Mood and Affect: Mood normal. Behavior: Behavior normal. Thought Content: Thought content normal. Judgment: Judgment normal. Assessment and Plan ASSESSMENT/PLAN: 1. Impacted cerumen of right ear - ICD9: 380.4, ICD10: H61.21 X one week +impaction noted - AMBULATORY EAR LAVAGE/IRRIGATION-performed by nursing Tolerated well RX Cortisporin F/U with PCP For continued sx Ashlie Wall APRN.CNP [facility] Instructions* Patient Instructions* Samantha Jama RD - 12/18/2023 11:13 AM EDT Increase cardio/walking to preferably at least 30 min most days Ensure 1500 mg calcium from diet Continue mindful eating documented [facility] NoteEducation (NUTRMARTIN) YVONNE LOMELI ([id number]) 1955 F Date Time Provider Department 12/18/23 11:00 AM SAMANTHA JAMA Reason for Visit: Reassessment [674] Patient Education [91] Primary Visit Diagnosis:Overweight [E66.3] Other Visit Diagnoses:Gastroesophageal reflux disease with esophagitis without hemorrhage [K21.00] Osteopenia, unspecified location [M85.80] Dietary counseling [Z71.3] During your visit today, we recorded the following information about you: Weight Height 65 kg 1.524 m Allergies As of Date: 12/18/2023 Noted Allergy Reaction REGLAN (METOCLOPRAMIDE HCL) 11/06/2013 7 - Swelling 14 - Other: See Comments Comments: Pt states her eyes swell when taking reglan AMOXICILLIN 05/14/2020 14 - Other: See Comments DOXYCYCLINE 08/29/2007 8 - GI Upset PHENTOLAMINE 06/13/2022 4 - Hives Date Reviewed: 12/18/2023 Reviewed by: Samantha Jama RD - Fully Assessed Prescriptions as of 12/18/2023 - buPROPion XL (WELLBUTRIN XL) 150 mg 24 hr tablet Take 150 mg by mouth every morning. - estradiol (ESTRACE) 0.01 % (0.1 mg/gram) vaginal cream Use 0.5g vaginally at bedtime for 2 weeks then 1-3 time/weeks for maintenance. - pantoprazole DR (PROTONIX) 40 mg tablet Take 40 mg by mouth once daily. - OTC PRODUCT Take by mouth once daily. FD vanessa For acid reflux - traMADol (ULTRAM) 50 mg tablet take 1 tablet by mouth at bedtime if needed for pain - cetirizine (ZYRTEC) 10 mg tablet Take 10 mg by mouth once daily. - azelastine (ASTELIN) 0.1% nasal spray instill 2 sprays into each nostril twice a day - L. acidophilus-L. rhamnosus 15 billion cell cap Take 1 capsule by mouth once daily. FLORAJEN WOMEN. If on antibiotic, take at least 1-2 hours before or after antibiotic. KEEP REFRIGERATED - RESTASIS MULTIDOSE 0.05 % drop put 1 drop in into both eyes twice a day - fluorometholone (FML LIQUID FILM) 0.1 % ophthalmic suspension Use 1 Drop in both eyes twice daily. - SENOKOT-S 8.6-50 mg per tablet Take 2 tablets by mouth daily at bedtime. Daily, Every other day to every other day as needed - tiZANidine (ZANAFLEX) 4 mg tablet Take 1 tablet by mouth once daily. - cyanocobalamin 1,000 mcg tab Take 1 tablet by mouth once daily. - ergocalciferol, vitamin D2, 2,000 unit tab Take 1 tablet by mouth once each week. Encounter Status:Closed by SAMANTHA JAMA on 12/18/23[facility]10-21-2024 NoteHNO ID: [id number] Author: SAMANTHA JAMA RD Service: ? Author Type: Registered Dietitian Type: Progress Notes Filed: 12/18/2023 11:20 Note Text: Nutritional Therapy Re-Assessment Nutrition Diagnosis: Behavioral-Environmental: Food and nutrition related knowledge deficit, related to, lack of prior exposure to information , as evidenced by new medical diagnosis RECOMMENDED MALNUTRITION DIAGNOSIS: NO MALNUTRITION IDENTIFIED NUTRITION CARE PLAN: Nutrition Intervention 12/18/2023: modify type and amount of food or beverage Increase cardio/walking to preferably at least 30 min most days Ensure 1500 mg calcium from diet Continue mindful eating Nutrition Monitoring AND Evaluation: weight loss and adherence to recommendations Need for Follow up:4-6 weeks PROGRESS: Interval History: following as relates to overweight BMI Body mass index is 28.01 kg/m?. GERD, osteopemia stage 3 - does not want to take medication for this. Weight slight increase since last visit. Frustrated with weight gain, feels nothing has changed. Has increase weight resistance of exercise and less cardio. Is having hip pain, will be seeing ortho today to address this. Senokot and dulcolax to have regular bowel movements. Nutrition Intervention 11/06/23 Goal 1500 mg calcium from diet Have a cup of plant milk or calcium enriched lactaid in the morning and evening, for additional calcium Try Calcium fortified margarine for toast Add in weight bearing exercise daily (walking, weights, etc); aim for cardio most days typically 5-6 days per week for 30-45 min Actions to implement interventions: Weight resistance Diet History: Breakfast - -12 eggs, toast and coffee, Snack - no Lunch - 3- milk and cereal Snack - occ one bite of protein bar Dinner - 6:30-7:30- fish, chicken, beans, roasted veg; potatoes and green beans; veggies with cheese Snack - bite of protein bar Beverages - water, flavored water, coffee Alcohol - no Vitamins/Supplements - no change Activity: Activities of Daily Living: varies Additional Activity: Moderately active (Moderate intensity exercise: Planned physical activity 3-5 days/week) Cardio and weights Steps at home Squats Leg lifts Band work To gym every other day Anthropometrics: Height: Last Ht 12/18/23 : 152.4 cm (5') Current weight: Last Wt 12/18/23 : 65 kg (143 lb 6.4 oz) Body mass index is 28.01 kg/m?. Resting Metabolic Rate: 1106 Malnutrition Screening Significant unintentional weight loss? No Eating less than 75% of usual intake for more than 2 weeks? No Potential Signs of Inflammation: no identifiable sources Nutritional status: Education Materials Provided: None this visit READINESS TO LEARN Cognitive ability: Alert and oriented Motivation to learn: Interested Family support: Unable to assess - Family not present Instruction provided to: Patient Patient learns best by: Individual Instruction Factors affecting learning: None Physical limitations affecting learning: None Likelihood of Adherence: Moderate Referred/Supervised by: Tomasa/Norma MCKEON Billing Type: Re-assess/15 min 2 units SIGNATURE: Samantha Jama RD PATIENT NAME: Yvonne Lomeli DATE: December 18, 2023 TIME: 10:52 [facility]10-21-2024 History of Present illness Narrative* Samantha Jama RD - 12/18/2023 10:53 AM EDT Nutritional Therapy Re-Assessment Nutrition Diagnosis: Behavioral-Environmental: Food and nutrition related knowledge deficit, related to, lack of prior exposure to information , as evidenced by new medical diagnosis RECOMMENDED MALNUTRITION DIAGNOSIS: NO MALNUTRITION IDENTIFIED NUTRITION CARE PLAN: Nutrition Intervention 12/18/2023: modify type and amount of food or beverage Increase cardio/walking to preferably at least 30 min most days Ensure 1500 mg calcium from diet Continue mindful eating Nutrition Monitoring & Evaluation: weight loss and adherence to recommendations Need for Follow up:4-6 weeks PROGRESS: Interval History: following as relates to overweight BMI Body mass index is 28.01 kg/m . GERD, osteopemia stage 3 - does not want to take medication for this. Weight slight increase since last visit.Frustrated with weight gain, feels nothing has changed. Has increase weight resistance of exercise and less cardio. Is having hip pain, will be seeing ortho today to address this. Senokot and dulcolax to have regular bowel movements. Nutrition Intervention 11/06/23 Goal 1500 mg calcium from diet Have a cup of plant milk or calcium enriched lactaid in the morning and evening, for additional calcium Try Calcium fortified margarine for toast Add in weight bearing exercise daily (walking, weights, etc); aim for cardio most days typically 5-6 days per week for 30-45 min Actions to implement interventions: Weight resistance Diet History: Breakfast - -12 eggs, toast and coffee, Snack - no Lunch - 3- milk and cereal Snack - occ one bite of protein bar Dinner - 6:30-7:30- fish, chicken, beans, roasted veg; potatoes and green beans; veggies with cheese Snack - bite of protein bar Beverages - water, flavored water, coffee Alcohol - no Vitamins/Supplements - no change Activity: Activities of Daily Living: varies Additional Activity: Moderately active (Moderate intensity exercise: Planned physical activity 3-5 days/week) Cardio and weights Steps at home Squats Leg lifts Band work To gym every other day Anthropometrics: Height: Last Ht 12/18/23 : 152.4 cm (5') Current weight: Last Wt 12/18/23 : 65 kg (143 lb 6.4 oz) Body mass index is 28.01 kg/m . Resting Metabolic Rate: 1106 Malnutrition Screening Significant unintentional weight loss? No Eating less than 75% of usual intake for more than 2 weeks? No Potential Signs of Inflammation: no identifiable sources Nutritional status: Education Materials Provided: None this visit READINESS TO LEARN Cognitive ability: Alert and oriented Motivation to learn: Interested Family support: Unable to assess - Family not present Instruction provided to: Patient Patient learns best by: Individual Instruction Factors affecting learning: None Physical limitations affecting learning: None Likelihood of Adherence: Moderate Referred/Supervised by: Tomasa/Norma MCKEON Billing Type: Re-assess/15 min 2 units SIGNATURE: Samantha Jama RD PATIENT NAME: Yvonne Lomeli DATE: December 18, 2023 TIME: 10:52 AM [facility] Instructions* Patient Instructions* Samantha Jama RD - 11/06/2023 9:58 AM EDT Goal 1500 mg calcium from diet Have a cup of plant milk or calcium enriched lactaid in the morning and evening, for additional calcium Try Calcium fortified margarine for toast Add in weight bearing exercise daily (walking, weights, etc); aim for cardio most days typically 5-6 days per week for 30-45 min documented [facility]09-[facility] History of Present illness Narrative* Samantha Jama RD - 11/06/2023 9:30 AM EDT Nutritional Therapy Re-Assessment Nutrition Diagnosis: Behavioral-Environmental: Food and nutrition related knowledge deficit, related to, lack of prior exposure to information , as evidenced by new medical diagnosis RECOMMENDED MALNUTRITION DIAGNOSIS: NO MALNUTRITION IDENTIFIED NUTRITION CARE PLAN: Nutrition Intervention 11/06/2023: modify type and amount of food or beverage Goal 1500 mg calcium from diet Have a cup of plant milk or calcium enriched lactaid in the morning and evening, for additional calcium Try Calcium fortified margarine for toast Add in weight bearing exercise daily (walking, weights, etc); aim for cardio most days typically 5-6 days per week for 30-45 min Nutrition Monitoring & Evaluation: calcium to gaol, gradual weight loss Need for Follow up: 4-6 weeks PROGRESS: Interval History: Following as relates to overweight BMI Body mass index is 27.63 kg/m . Following as relates to overweight BMI Body mass index is 27.63 kg/m ., GERD. Slight increase in weight from last visit (was at fair yesterday). Has been vacationing, visiting; tends to towards frequent celebrations and events. Continues two meals per day for long periods between meals. Exercise and activity less than recommended. Now found to have stage 3 osteopenia, does not want to take medication, wantsto get calcium from diet as does not tolerate calcium supplements. Nutrition Intervention 09/18/23 Have part of protein bar for snack at night; have have other part of protein bar between brunch anddinner Try cereal for breakfast, move midday meal to 2-3; Get back to regular exercise - ideally at least 30 min cardio most days Actions to implement interventions: Now tracking steps Diet History: Brunch - eggs, toast and coffee Snack - occ, gambian cheese and sausage/trail [place] Snack - watermelon or fruit bowl Dinner - chicken with roasted veg, melendez beans, peas, beans, Snack - protein bar Beverages - water, flavored water, coffee Alcohol - no Vitamins/Supplements - no change Activity: Activities of Daily Living: varies Additional Activity: Lightly active (Light exercise: planned physical activity 1-3 days/week) Usually 3K steps Anthropometrics: Height: Last Ht 11/06/23 : 152.4 cm (5') Current weight: Last Wt 11/06/23 : 64.2 kg (141 lb 8 oz) Body mass index is 27.63 kg/m . Resting Metabolic Rate: 1098 Malnutrition Screening Significant unintentional weight loss? No Eating less than 75% of usual intake for more than 2 weeks? No Potential Signs of Inflammation: no identifiable sources Education Materials Provided: Increasing Calcium in Your Diet READINESS TO LEARN Cognitive ability: Alert and oriented Motivation to learn: Interested Family support: Unable to assess - Family not present Instruction provided to: Patient Patient learns best by: Individual Instruction Factors affecting learning: None Physical limitations affecting learning: None Likelihood of Adherence: Moderate Referred/Supervised by: Tomasa/Greg MNAvni Billing Type: Re-assess/15 min 3 units SIGNATURE: Samantha Jama RD PATIENT NAME: Yvonne Lomeli DATE: November 06, 2023 TIME: 9:31 AM documented in [facility] encounterE[facility]07-22-2024 Instructions* Patient Instructions* Samantha Jama RD - 09/18/2023 10:37 AM EDT Have part of protein bar for snack at night; have have other part of protein bar between brunch anddinner Try cereal for breakfast, move midday meal to 2-3; Get back to regular exercise - ideally at least 30 min cardio most days documented in [facility] encounterE[facility]07-22-2024 History of Present illness Narrative* Samantha Jama RD - 09/18/2023 10:16 AM EDT Nutritional Therapy Re-Assessment Nutrition Diagnosis: Overweight/obesity, related to, excess energy intake and physical inactivity, as evidenced by BMI above normative standard for age and gender RECOMMENDED MALNUTRITION DIAGNOSIS: NO MALNUTRITION IDENTIFIED NUTRITION CARE PLAN: Nutrition Intervention 09/18/2023: modify type and amount of food beverage Have part of protein bar for snack at night; have have other part of protein bar between brunch anddinner Try cereal for breakfast, move midday meal to 2-3; Get back to regular exercise - ideally at least 30 min cardio most days Nutrition Monitoring & Evaluation: half to one pound weight loss per week Need for Follow up: 4-6 weeks PROGRESS: Interval History: following as relates to overweight BMI Body mass index is 27.42 kg/m . GERD. Weight fairly stable from last visit. Less celebrations and events, has been busy getting ready for picnic, cleaning house . Continue two meals and long period between meals, usually larger evening snack.Has been busy getting ready for event but no additional exercise. Nutrition Intervention 08/07/23 Try just a few bites of protein bar for snack, limit cereal; if able no evening snack Get back to regular exercise, if able aim for 30 min cardio most days All meals and snacks at the dinner table; minimize distractions, no TV while eating. Make meals last at least 20 min, chew each bite of food 20 x per bite.Portion out all foods, never eat out of container. Become more mindful of meal: Enjoy flavors, textures etc. Use hunger/fullness scale. Actions to implement interventions: limited Diet History: Breakfast - no Snack - no Brunch - 11-12:00-3 eggs and toast and coffee Snack - occ watermelon or other fruit Dinner - 6-7 Lean Cuisine; occ eggs and sausage, sweet corn Snack - bite of protein bar; occ cereal; popcorn Beverages - water, flavored water, coffee Alcohol - no Vitamins/Supplements - no change To bed: 12 Activity: Activities of Daily Living: Active 75% of the day. 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 Resting Metabolic Rate: 1093 Malnutrition Screening Significant unintentional weight loss? No Eating less than 75% of usual intake for more than 2 weeks? No Potential Signs of Inflammation: no identifiable sources Nutritional status: Education Materials Provided: None this visit READINESS TO LEARN Cognitive ability: Alert and oriented Motivation to learn: Interested Family support: Unable to assess - Family not present Instruction provided to: Patient Patient learns best by: Individual Instruction Factors affecting learning: None Physical limitations affecting learning: None Likelihood of Adherence: Moderate Referred/Supervised by: Tomasa/[place] MNT Billing Type: Re-assess/15 min 2 units SIGNATURE: Samantha Jama RD PATIENT NAME: Yvonne Lomeli DATE: September 18, 2023 TIME: 10:18 AM documented in this encounterE[facility]06-24-2024 Note* Letter - Coordinator, Mammography - 08/21/2023 12:51 PM EDT August 21, 2023 PID: [id number] Yvonne Vaughn [address] [place] [address] Dear Ms. Lomeli, We are pleased to inform you that the results of your recent breast imaging exam on 08/18/2023 are normal. Early detection of cancer is very important. We also understand recommendations regarding breast cancer screening are controversial. Please discuss with your primary care provider which strategy is best for you and whether a mammogram is right for you. Your imaging studies and report will be kept on file at [facility] as part of your permanent medical record and are available for your continuing care. Thank you for allowing us to help in meeting your health care needs. Sincerely, Dr. Lo Interpreting Radiologist [facility] (Normal over 40) [facility]06-24-2024 Miscellaneous Notes* Letter - Coordinator, Mammography - 08/21/2023 12:51 PM EDT August 21, 2023 PID: [id number] Yvonne Vaughn Lomeli [address] [place] [address] Dear Ms. Lomeli, We are pleased to inform you that the results of your recent breast imaging exam on 08/18/2023 are normal. Early detection of cancer is very important. We also understand recommendations regarding breast cancer screening are controversial. Please discuss with your primary care provider which strategy is best for you and whether a mammogram is right for you. Your imaging studies and report will be [facility] at [facility] as part of your permanent medical record and are available for your continuing care. Thank you for allowing us to help in meeting your health care needs. Sincerely, Dr. Lo Interpreting Radiologist [facility] (Normal over 40) documented in this encounterElyria [facility]06-21-2024 History of Present illness Narrative* Caitie Baker APRN.CARTON LINER - 08/18/2023 12:34 PM EDT Images from the original note were not included. Subjective Patient comes in with complaints of feeling swollen and uncomfortable area on the left side of the rectum. Patient says she thought it was a hemorrhoid. Patient been using hemorrhoid cream and suppositories for a week. Patient says she does not think it is getting any better. Patient denies any fever chills nausea vomiting patient denies any abnormal difficulty going to the bathroom. Patient denies other symptoms. The history is provided by the patient. No language teacher was used. Review of Systems Constitutional: Negative. Skin: Negative. Objective Physical Exam Exam conducted with a network cable installer present. Constitutional: Appearance: Normal appearance. Pulmonary: Effort: Pulmonary effort is normal. Genitourinary: Comments: Patient says she feels the area of discomfort in the area marked above. No significant findings in the area no raised, discolored, abnormal findings. Neurological: Mental Status: She is alert. PAST MEDICAL HISTORY Diagnosis Date Dysthymic disorder Depression (non-psychotic) Essential hypertension Generalized anxiety disorder Anxiety, Generalized Irritable bowel syndrome Irritable bowel Myalgia and myositis, unspecified Osteopenia after menopause 06/2021 PMB (postmenopausal bleeding) 2022,2023 Rotator cuff injury R side PAST SURGICAL HISTORY Procedure Laterality Date CHOLECYSTECTOMY Cholecystectomy COLONOSCOPY 05/2009 COLONOSCOPY FLX DX W/COLLJ SPEC WHEN PFRMD 05/2006 Colonoscopy COLONOSCOPY FLX DX W/COLLJ SPEC WHEN PFRMD 11/13/2013 ESOPHAGOGASTRODUODENOSCOPY TRANSORAL DIAGNOSTIC EGD ESOPHAGOGASTRODUODENOSCOPY TRANSORAL DIAGNOSTIC 11/13/2013 EGD HYSTEROSCOPY BX ENDOMETRIUM&/POLYPC W/WO D&C 12/16/2022 hysteroscopy D&C INJECTION 12/07/2022 back NEUROPLASTY &/TRANSPOS MEDIAN NRV CARPAL TUNNE Carpal tunnel decomp, right PAST SURGICAL HISTORY OF Removal bone spur right shoulder PAST SURGICAL HISTORY OF 09/15/2017 removal part of colon for diverticulitis SHOULDER SURGERY HX TONSILLECTOMY PRIMARY/SECONDARY <AGE 12 Tonsillectomy ALLERGIES Reglan [Metoclopramide Hcl], Amoxicillin, Doxycycline, and Phentolamine MEDICATIONS buPROPion XL (WELLBUTRIN XL) 150 mg 24 hr tablet Take 150 mg by mouth every morning. estradiol (ESTRACE) 0.01 % (0.1 mg/gram) vaginal cream Use 0.5g vaginally at bedtime for 2 weeks then 1-3 time/weeks for maintenance. pantoprazole DR (PROTONIX) 40 mg tablet Take 40 mg by mouth once daily. OTC PRODUCT Take by mouth once daily. FD vanessa For acid reflux traMADol (ULTRAM) 50 mg tablet take 1 tablet by mouth at bedtime if needed for pain cetirizine (ZYRTEC) 10 mg tablet Take 10 mg by mouth once daily. azelastine (ASTELIN) 0.1% nasal spray instill 2 sprays into each nostril twice a day L. acidophilus-L. rhamnosus 15 billion cell cap Take 1 capsule by mouth once daily. FLORAJEN WOMEN.If on antibiotic, take at least 1-2 hours before or after antibiotic. KEEP REFRIGERATED RESTASIS MULTIDOSE 0.05 % drop put 1 drop in into both eyes twice a day fluorometholone (FML LIQUID FILM) 0.1 % ophthalmic suspension Use 1 Drop in both eyes twice daily. SENOKOT-S 8.6-50 mg per tablet Take 2 tablets by mouth daily at bedtime. Daily, Every other day to every other day as needed tiZANidine (ZANAFLEX) 4 mg tablet Take 1 tablet by mouth once daily. cyanocobalamin 1,000 mcg tab Take 1 tablet by mouth once daily. ergocalciferol, vitamin D2, 2,000 unit tab Take 1 tablet by mouth once each week. (Patient taking differently: Take 1 tablet by mouth one time a week. Daily) FAMILY HISTORY Problem Relation Age of Onset Heart Mother Hypertension Mother Lipids Father Diabetes Paternal Grandmother Breast Cancer Maternal Aunt Breast Cancer Maternal Aunt Social History Tobacco Use Smoking status: Never Smokeless tobacco: Never Vaping Use Vaping Use: Never used Substance Use Topics Alcohol use: No Drug use: No ASSESSMENT/PLAN: 1. Vaginal discomfort - ICD9: 625.9, ICD10: N94.9 At this time with no significant findings patient was instructed to follow-up with PCP and CRYSTAL ATTACHER for further evaluation. Patient was okay with this and will schedule appointments before she leaves. Caitie Baker APRN.MARTINA documented in this encounterE[facility]06-21-2024 History of Present illness Narrative* Carlton Mcgowan Mammo Tech - 08/18/2023 11:30 AM EDT Radiology Service Progress Note PATIENT NAME: Yvonne Lomeli DATE OF SERVICE: August 18, 2023 TIME: 11:30 AM PATIENT IDENTITY VERIFICATION COMPLETED USING TWO (2) IDENTIFIERS: Name and Date of confirmedby patient verbally. FALL SCREENING: Has the patient had 2 falls in the last year or 1 fall with injury or currently using an Ambulatory Assistive Device (Walker, Cane, Wheelchair, Crutches, etc.)? No PATIENT GENDER DATA: Female. status: : No status: NO. PATIENT RELEVANT IMPLANT DATA REVIEWED: Not Applicable PATIENT PRESENTS WITH AN IMPLANTABLE OR ATTACHED ATHLETIC MONITOR: No RADIOLOGY DEPARTMENT: Mammography PERIPHERAL IV DATA: Not applicable SIGNED BY: Yi Gutierrez August 18, 2023 11:30 AM documented in this encounterE[facility]06-17-2024 Telephone encounter Note * Telephone Encounter - Chelsea Tom RN - 08/14/2023 10:08 AM EDT Patient notified. Chelsea Tom RN [facility]06-17-2024 Miscellaneous Notes* Telephone Encounter - Chelsea Tom RN - 08/14/2023 10:08 AM EDT Patient notified. Chelsea Tom RN * Telephone Encounter - Anali Rico APRN.CNP - 08/14/2023 8:43 AM EDT Please let the patient know that I reviewed her ultrasound report with Dr. Link and at this timesince endometrial lining is very thin I would like you just to continue to monitor for any more bleeding. If you do have any more episodes of bleeding please call the office. No further testing needed at this time. Anali Rico APRN.CNP documented in this encounterElyria [facility]06-17-2024 Telephone encounter Note * Telephone Encounter - Anali Rico APRN.CNP - 08/14/2023 8:43 AM EDT Please let the patient know that I reviewed her ultrasound report with Dr. Link and at this timesince endometrial lining is very thin I would like you just to continue to monitor for any more bleeding. If you do have any more episodes of bleeding please call the office. No further testing needed at this time. Anali Rico APRN.CNP [facility]06-10-2024 Instructions* Patient Instructions* Samantha Jaam RD - 08/07/2023 1:08 PM EDT Try just a few bites of protein bar for snack, limit cereal; if able no evening snack Get back to regular exercise, if able aim for 30 min cardio most days All meals and snacks at the dinner table; minimize distractions, no TV while eating. Make meals last at least 20 min, chew each bite of food 20 x per bite.Portion out all foods, never eat out of container. Become more mindful of meal: Enjoy flavors, textures etc. Use hunger/fullness scale. documented in this encounterEly[facility]06-10-2024 History of Present illness Narrative* Samantha Jama RD - 08/07/2023 12:51 PM EDT Nutritional Therapy Re-Assessment Nutrition Diagnosis: Overweight/obesity, related to, excess energy intake and physical inactivity, as evidenced by BMI above normative standard for age and gender RECOMMENDED MALNUTRITION DIAGNOSIS: NO MALNUTRITION IDENTIFIED NUTRITION CARE PLAN: Nutrition Intervention 08/07/2023: modify type and amount of food or beverage Try just a few bites of protein bar for snack, limit cereal; if able no evening snack Get back to regular exercise, if able aim for 30 min cardio most days All meals and snacks at the dinner table; minimize distractions, no TV while eating. Make meals last at least 20 min, chew each bite of food 20 x per bite.Portion out all foods, never eat out of container. Become more mindful of meal: Enjoy flavors, textures etc. Use hunger/fullness scale. Nutrition Monitoring & Evaluation: half pound weight loss per week Need for Follow up: 4-96 weeks PROGRESS: Interval History: following as relates to overweight BMI Body mass index is 27.44 kg/m . GERD. Weight fairly stable from last visit. Has had frequent meals out, celebrations, events and trips past couple months. Nutrition Intervention 04/17/23 When baking leave one at home for when back from event, don't bring extras back with you All meals and snacks at the dinner table; minimize distractions, no TV while eating. Make meals last at least 20 min, chew each bite of food 20 x per bite.Portion out all foods, never eat out of container. Become more mindful of meal: Enjoy flavors, textures etc. Use hunger/fullness scale. Aim for ~21 grams/3 oz protein at breakfast; lean protein When able get back to 20-30 min cardio most days; if able 2-3 days of weight resistance Actions to implement interventions: Limited Diet History: Breakfast - wake 9 Snack - no Brunch - 2-3 eggs and 1 toast, coffee with Stevia and sugar and milk and collagen Snack - not usually but if having will be fruit, occ sausage and cheese Dinner - eggs and veg or Lean Cuisine, toast with cheese with Lasagna; added veg; Snack - cereal , couple bites of protein bar Beverages - water, flavored Alcohol - no Vitamins/Supplements - no change To bed at 12 Activity: Activities of Daily Living: varies Additional Activity: Sedentary (Little or no exercise: <1x/week) House work Yard work Occ walking Anthropometrics: Height: Last 1 Encounter Ht Readings: Date: Ht: 08/07/2023 152.4 cm (5') Current weight: Last 1 Encounter Wt Readings: Date: Wt: 08/07/2023 63.7 kg (140 lb 8 oz) Body mass index is 27.44 kg/m . Resting Metabolic Rate: 1093 Malnutrition Screening Significant unintentional weight loss? No Eating less than 75% of usual intake for more than 2 weeks? No Education Materials Provided: None this visit READINESS TO LEARN Cognitive ability: Alert and oriented Motivation to learn: Interested Family support: Unable to assess - Family not present Instruction provided to: Patient Patient learns best by: Individual Instruction Factors affecting learning: None Physical limitations affecting learning: None Likelihood of Adherence: Moderate Referred/Supervised by: Tomasa/Greg MNAvni Billing Type: Re-assess/15 min 1 unit SIGNATURE: Samantha Jama RD PATIENT NAME: Yvonne Lomeli DATE: August 07, 2023 TIME: 12:55 PM [facility] History of Present illness Narrative* Anali Rico APRN.CARTON LINER - 07/21/2023 3:01 PM EDT POST MENOPAUSAL BLEEDING Yvonen Lomeli is a 68 year old who presents with post menopausal bleeding. She has been in menopause for 1 day. SUBJECTIVE: The bleeding is described as Moderate which has been occurring infrequently for 1 day. On HRT? No If yes, do you have withdrawal bleeding? N/A. Sexually active? No If yes, is there pain with intercourse? Not Applicable Last Pap: 05/29/2020 normal Prior history of : Prior Reproductive tract surgery: none Have there been any of the following procedures/diagnoses? D&C: Yes Hysteroscopy: Yes Endometrial Bx: Yes Fibroids/Polyps: No Uterine/Endometrial cancer: No Cervical dysplasia/cancer: No Ovarian cancer: No Family History: FAMILY HISTORY Problem Relation Age of Onset Heart Mother Hypertension Mother Lipids Father Diabetes Paternal Grandmother Breast Cancer Maternal Aunt Breast Cancer Maternal Aunt Last pelvic Ultrasound (year options, none, unknown, *) PHYSICAL EXAMINATION: EXAM: LMP 08/31/2008 GENERAL: pleasant, female in no apparent distress HEENT: Normocephalic, atraumatic, mucus membranes moist, and no lesions CHEST: Normal inspiratory effort PELVIC: external genitalia normal, normal Bartholin's glands, urethra, [place]'s glands, no vulvar lesions, no cervical lesions, physiologic discharge present, normal appearing perineal body and perianal region, scant amount dark blood at the cervical os BIMANUAL: uterus normal size, shape and consistency, no adnexal masses, and non-tender RECTOVAGINAL: deferred. NEURO: alert and oriented x3,exam grossly non-focal EXTREMITIES: normal ASSESSMENT/PLAN: 1. PMB (postmenopausal bleeding) - ICD9: 627.1, ICD10: N95.0 Will notify patient of test results. - US FEMALE PELVIS TRANSVAG Anali Rico APRN.CNP Medical Decision Making: Problems: Moderate: New problem with uncertain prognosis Data: Unique test(s) ordered: 1 Risk: Low: Low risk from testing/treatment Medical Decision Making Level: 3 - Low documented in this encounterE[facility]02-19-[facility]24 Instructions* Patient Instructions* Samantha Jama RD - 04/17/2023 2:17 PM EST When baking leave one at home for when back from event, don't bring extras back with you All meals and snacks at the dinner table; minimize distractions, no TV while eating. Make meals last at least 20 min, chew each bite of food 20 x per bite.Portion out all foods, never eat out of container. Become more mindful of meal: Enjoy flavors, textures etc. Use hunger/fullness scale. Aim for ~21 grams/3 oz protein at breakfast; lean protein When able get back to 20-30 min cardio most days; if able 2-3 days of weight resistance Look into a Happy Light, light therapy light. documented in this encounterE[facility]02-[facility] History of Present illness Narrative* Samantha Jama, KARY - 04/17/2023 1:56 PM EST Nutritional Therapy Re-Assessment Nutrition Diagnosis: Overweight/obesity, related to, excess energy intake and physical inactivity, as evidenced by BMI above normative standard for age and gender RECOMMENDED MALNUTRITION DIAGNOSIS: NO MALNUTRITION IDENTIFIED NUTRITION CARE PLAN: Nutrition Intervention 04/17/2023: modify type and amount of food or beverage When baking leave one at home for when back from event, don't bring extras back with you All meals and snacks at the dinner table; minimize distractions, no TV while eating. Make meals last at least 20 min, chew each bite of food 20 x per bite.Portion out all foods, never eat out of container. Become more mindful of meal: Enjoy flavors, textures etc. Use hunger/fullness scale. Aim for ~21 grams/3 oz protein at breakfast; lean protein When able get back to 20-30 min cardio most days; if able 2-3 days of weight resistance Nutrition Monitoring & Evaluation: half pound weight loss per week Need for Follow up: 4-6 weeks PROGRESS: Interval History: following as relates to overweight BMI Body mass index is 27.34 kg/m . Other medical issues GERD. Following for weight loss. Having difficulty with motivation to stick with a plan. Typically eating two meals and an evening snack, is usually up late. Is avoiding sweets but if triesone earlier in the day will eat sweets all day, has monthy events when needs to bake. Is resistant to suggestions. Weight increased two pound since last visit. Nutrition Intervention 03/06/23 Aim for ~21 grams/3 oz protein at breakfast; lean protein When able get back to 20-30 min cardio most days; if able 2-3 days of weight resistance Continue mindful eating and plate method of eating Actions to implement interventions: Limited Diet History: wake 9 Breakfast - no Snack - no Lunch - 11:30 egg and toast Snack - no, occ nuts, part of protein bar Dinner - 6:30- egg and veg, chicken and vegetables; noodles in veg broth; Lean Cuisine Snack - cereal, occ oatmeal, Beverages - water, flavored water Alcohol - no Vitamins/Supplements - no change Activity: Activities of Daily Living: varies Additional Activity: Sedentary (Little or no exercise: <1x/week) Occ walking/marching Anthropometrics: Height: Last 1 Encounter Ht Readings: Date: Ht: 04/17/2023 152.4 cm (5') Current weight: Last 1 Encounter Wt Readings: Date: Wt: 04/17/2023 63.5 kg (140 lb) Body mass index is 27.34 kg/m . Resting Metabolic Rate: 1096 Malnutrition Screening Significant unintentional weight loss? No Eating less than 75% of usual intake for more than 2 weeks? No Potential Signs of Inflammation: no identifiable sources Nutritional status: Education Materials Provided: None this visit READINESS TO LEARN Cognitive ability: Alert and oriented Motivation to learn: Interested Family support: Unable to assess - Family not present Instruction provided to: Patient Patient learns best by: Individual Instruction Factors affecting learning: None Physical limitations affecting learning: None Likelihood of Adherence: Moderate Referred/Supervised by: Tomasa/Greg MCKEON Billing Type: Re-assess/15 min 2 units SIGNATURE: Samantha Jama RD PATIENT NAME: Yvonne Lomeli DATE: April 17, 2023 TIME: 1:55 PM documented in this encounterE[facility]11-13-[facility]23 Instructions* Patient Instructions* Samantha Jama RD - 01/09/2023 9:51 AM EST Aim for 3 regular meals, include lean protein in each meal, aim for 20-30 grams protein in each meals Add a 3 oz portion of protein/meat at breakfast Add in exercise as able, if able add 20-30 min exercise 2-3 days per week at least Continue mindful eating Continue plate method, half plate veggies documented in this encounterE[facility]11-13-[facility]23 History of Present illness Narrative* Samantha Jama RD - 01/09/2023 9:31 AM EST Nutritional Therapy Re-Assessment Nutrition Diagnosis: Overweight/obesity, related to, excess energy intake and physical inactivity, as evidenced by BMI above normative standard for age and gender RECOMMENDED MALNUTRITION DIAGNOSIS: NO MALNUTRITION IDENTIFIED NUTRITION CARE PLAN: Nutrition Intervention 01/09/2023: modify type and amount of food or beverage Aim for 3 regular meals, include lean protein in each meal, aim for 20-30 grams protein in each meals Add a 3 oz portion of protein/meat at breakfast Add in exercise as able, if able add 20-30 min exercise 2-3 days per week at least Continue mindful eating Continue plate method, half plate veggies Nutrition Monitoring & Evaluation: modify type and amount of food or beverage Need for Follow up: weight loss and labs in target range PROGRESS: Interval History: following as relates to overweight BMI Body mass index is 27.73 kg/m . Goal to lose weight to be healthy and avoid diabetes. States very busy hectic time period going into the holidays. Other medical issues GERD, fibromyalgia, fatty liver. Typically eating two meals and an eveningsnack. Has been busy and active but no regular exercise, unable to do do weight resistance with shoulder pain, limited time for regular exercise. Was able to lose 5 lbs since last visit. Has ongoing issues with constipation, using a stool softener Nutrition Intervention 11/21/22 Continue regular meals, include lean protein in each meal; aim for 20-30 grams per meal Continue mindful eating Add in weight resistance exercise (bands), 2-3 x per week Goal for weight loss 1-2 lb weight loss per week Actions to implement interventions: Eating 2 meals and an evening snack Occ cheat active Diet History: Breakfast - no Snack - no Lunch - 12 - eggs, toast and coffee with truvia Snack - no Dinner - 6-6:30-may have eggs and two veggies, occ meat with veg or baked potato, ice crinks Snack - cereal (life and oat squares)/2% lactaid with berries Beverages - ice drinks ,coffee, water, collagen in coffee Alcohol - no Vitamins/Supplements - no change Activity: Activities of Daily Living: varies Additional Activity: Sedentary (Little or no exercise: <1x/week) No reg, too busy House work, projects Anthropometrics: Height: Last 1 Encounter Ht Readings: Date: Ht: 01/09/2023 152.4 cm (5') Current weight: Last 1 Encounter Wt Readings: Date: Wt: 01/09/2023 64.4 kg (142 lb) Body mass index is 27.73 kg/m . Resting Metabolic Rate: 1105 Malnutrition Screening Significant unintentional weight loss? No Eating less than 75% of usual intake for more than 2 weeks? No Potential Signs of Inflammation: no identifiable sources Education Materials Provided: None this visit READINESS TO LEARN Cognitive ability: Alert and oriented Motivation to learn: Interested Family support: Unable to assess - Family not present Instruction provided to: Patient Patient learns best by: Individual Instruction Factors affecting learning: None Physical limitations affecting learning: None Likelihood of Adherence: Moderate Referred/Supervised by: Louie/Oni MCKEON Billing Type: Re-assess/15 min 2 units SIGNATURE: Samantha Jama RD PATIENT NAME: Yvonne Lomeli DATE: January 09, 2023 TIME: 9:34 AM documented in this encounterE[facility]10-23-[facility]23 History of Present illness Narrative* Meagan Link MD - 12/19/2022 10:30 AM EDT Patient underwent hysteroscopy D&C at [facility] on 12/16/2022 without complications. Pathology is pending. This was done for thickened endometrial lining on pelvic ultrasound. There were no polyps or other focal abnormalities noted at the time of surgery. The endometrial liningwas atrophic and pale pink. Meagan Link MD documented in this encounterE[facility]10-20-[address] [facility]10-20-2023 History and physical note Author Meagan Link [facility] December 16, 2022 1:20pm Note Date/Time December 09, 2022 5 :43pm [facility] Medical Records Department [address] [place] [address] History & Physical Exam 12/09/22 1742 MR#: [id number] Acct: [id number] Name: YVONNE LOMELI Rep #:[id number] : 1955 67 From: Meagan Link MD PCP: Dr. Soo Ladd MD Status:R EG [facility] Location: [place] [address] History and Physical Date of Admission: 12/16/22 HPI: The patient is a 67 year old female presenting for pre-operative visit. She is scheduled for Hysteroscopy D&C, for PMB and thickened endometrium on US on 01/16/23. Procedure discussed along with risks, benefits and complications. Other alternatives discussed for management. Consent form signed? Yes. ? ? PAST MEDICAL HISTORY PAST MEDICAL HISTORY Diagnosis Date ? Dysthymic disorder ? ? Depression (non-psychotic) ? Essential hypertension ? ? Generalized anxiety disorder ? ? Anxiety, Generalized ? Irritable bowel syndrome ? ? Irritable bowel ? Myalgia and myositis, unspecified ? ? Osteopenia after menopause 06/2021 ? Rotator cuff injury ? ? R side ? ? PAST SURGICAL HISTORY PAST SURGICAL HISTORY Procedure Laterality Date ? CHOLECYSTECTOMY ? ? ? Cholecystectomy ? COLONOSCOPY ? 05/2009 ? COLONOSCOPY FLX DX W/COLLJ SPEC WHEN PFRMD ? 05/2006 ? Colonoscopy ? COLONOSCOPY FLX DX W/COLLJ SPEC WHEN PFRMD ? 11/13/2013 ? ESOPHAGOGASTRODUODENOSCOPY TRANSORAL DIAGNOSTIC ? ? ? EGD ? ESOPHAGOGASTRODUODENOSCOPY TRANSORAL DIAGNOSTIC ? 11/13/2013 ? EGD ? INJECTION ? 12/07/2022 ? back ? NEUROPLASTY &/TRANSPOS MEDIAN NRV CARPAL TUNNE ? ? ? Carpal tunnel decomp, right ? PAST SURGICAL HISTORY OF ? ? ? Removal bone spur right shoulder ? PAST SURGICAL HISTORY OF ? 09/15/2017 ? removal part of colon for diverticulitis ? SHOULDER SURGERY HX ? ? ? TONSILLECTOMY PRIMARY/SECONDARY <AGE 12 ? ? ? Tonsillectomy ? ? ? CURRENT MEDICATIONS Current Outpatient Medications Medication Sig Dispense Refill ? azelastine (ASTELIN) 0.1% nasal spray instill 2 sprays into each nostril twice a day ? ? ? buPROPion XL (WELLBUTRIN XL) 150 mg 24 hr tablet Take 150 mg by mouth every morning. ? ? ? cetirizine (ZYRTEC) 10 mg tablet Take 10 mg by mouth once daily. ? ? ? cyanocobalamin 1,000 mcg tab Take 1 tablet by mouth once daily. ? 0 ? ergocalciferol, vitamin D2, 2,000 unit tab Take 1 tablet by mouth once each week. (Patient taking differently: Take 1 tablet by mouth one time a week. Daily) ? 0 ? estradiol (ESTRACE) 0.01 % (0.1 mg/gram) vaginal cream Use 0.5g vaginally at bedtime for 2 weeks then 1-3 time/weeks for maintenance. 42.5 g 2 ? fluorometholone (FML LIQUID FILM) 0.1 % ophthalmic suspension Use 1 Drop in both eyes twice daily. ? ? ? L. acidophilus-L. rhamnosus 15 billion cell cap Take 1 capsule by mouth once daily. FLORAJEN WOMEN. If on antibiotic, take at least 1-2 hours before or after antibiotic. KEEP REFRIGERATED 30 capsule 11 ? norethindrone (AYGESTIN) 5 mg tablet Take 1 tablet TID until bleeding stops, the BID x 3 days, the daily x 3 days. 35 tablet 0 ? OTC PRODUCT Take by mouth once daily. FD vanessa For acid reflux ? ? ? pantoprazole DR (PROTONIX) 40 mg tablet Take 40 mg by mouth once daily. ? ? ? RESTASIS MULTIDOSE 0.05 % drop put 1 drop in into both eyes twice a day ? ? ? SENOKOT-S 8.6-50 mg per tablet Take 2 tablets by mouth daily at bedtime. Daily, Every other day to every other day as needed ? ? ? tiZANidine (ZANAFLEX) 4 mg tablet Take 1 tablet by mouth once daily. ? ? ? traMADol (ULTRAM) 50 mg tablet take 1 tablet by mouth at bedtime if neededfor pain ? ? ? No current facility-administered medications for this visit. ? ? ALLERGIES: Reglan [Metoclopramide Hcl], Amoxicillin, Doxycycline, and Phentolamine ? PERSONAL HISTORY: SOCIAL HISTORY Social History ? Tobacco Use ? Smoking status: Never ? Smokeless tobacco: Never Vaping Use ? Vaping Use: Never used Substance Use Topics ? Alcohol use: No ? Drug use: No ? FAMILY HISTORY: FAMILY HISTORY FAMILY HISTORY Problem Relation Age of Onset ? Heart Mother ? ? Hypertension Mother ? ? Lipids Father ? ? Diabetes Paternal Grandmother ? ? Breast Cancer Maternal Aunt ? ? Breast Cancer Maternal Aunt ? ? ? REVIEW OF SYMPTOMS: GENERAL: denies fevers or chills ENDOCRINOLOGY: has not been on steroids Cardiology : denies palpitations or chest pain Respiratory: denies SOB or cough Hematology: denies history of prolonged bleeding or easy bruising or VTE Allergy: Denies history of personal or family history of allergy to anesthesia ? PHYSICAL EXAMINATION: ? VITALS: Blood pressure 124/72, pulse 64, resp. rate 16, height 5' (1.524 m), weight 148 lb (67.1 kg), last menstrual period 08/31/2008. ? GENERAL: The patient is well nourished, well hydrated in no acute distress. , The patient is oriented to time, place, and person. NECK: Supple. No lynphadenopathy, normal thyroid, no thyromegaly. LUNGS: Clear to auscultation bilaterally. no wheezes, rhonchi or rales HEART: Regular rate and rhythm, Normal heart sounds, and No murmurs or gallops ? IMPRESSION: PMB/ thickened endometrium ? PLAN: The risks/benefits/alternatives and personal involved for the planned hsyteroscopy D&C with possible polyp resection were reviewed with the patient. Her questions were answered to her satisfaction and she desires to proceed. Consent was signed. I reviewed with her postop instructions and expectations. ? ? I have reviewed and updated past medical and surgical history, medications and allergies Assessment & Plan Assessment/Plan (1) Postmenopausal bleeding: (2) Endometrial thickening on ultrasound: 12/09/221742 <Electronically signed by Meagan Link MD> Cosigner Signature (if applicable): CC: Dr. Soo Ladd MD; Dr. Meagan Link MD~ Signed ADDENDUM by Dr. Meagan Link MD on 12/16/22 at 1320 Addendum UPDATE- I have seen the patient and performed any clinically relevant updates to the history and physical exam. 12/16/22 1320<Electronically signed by Meagan Link MD> Cosigner Signature (if applicable): cc: Dr. Soo Ladd MD; Dr. Meagan Link MD ~* Signed [facility] Work Phone: 1(166) 970-473010-13-2023 History of Present illness Narrative* Meagan Link MD - 12/09/2022 12:23 PM EDT Yvonne Lomeli is a 67 year old female who presents for problem visit for PMB and had about a week before she was seen in the office in Oct. Wears a pessary and since she hasn't been wearing it bleeding stopped. Had quite a bit of bleeding at that time and didn't tolerate aygestin well. 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 Comments: Sexual Activity: Not Currently; No partner data on record Contraception: No contraception data on record PAST MEDICAL HISTORY Diagnosis Date Dysthymic disorder Depression (non-psychotic) Essential hypertension Generalized anxiety disorder Anxiety, Generalized Irritable bowel syndrome Irritable bowel Myalgia and myositis, unspecified Osteopenia after menopause 06/2021 Rotator cuff injury R side PAST SURGICAL HISTORY Procedure Laterality Date CHOLECYSTECTOMY Cholecystectomy COLONOSCOPY 05/2009 COLONOSCOPY FLX DX W/COLLJ SPEC WHEN PFRMD 05/2006 Colonoscopy COLONOSCOPY FLX DX W/COLLJ SPEC WHEN PFRMD 11/13/2013 ESOPHAGOGASTRODUODENOSCOPY TRANSORAL DIAGNOSTIC EGD ESOPHAGOGASTRODUODENOSCOPY TRANSORAL DIAGNOSTIC 11/13/2013 EGD INJECTION 12/07/2022 back NEUROPLASTY &/TRANSPOS MEDIAN NRV CARPAL TUNNE Carpal tunnel decomp, right PAST SURGICAL HISTORY OF Removal bone spur right shoulder PAST SURGICAL HISTORY OF 09/15/2017 removal part of colon for diverticulitis SHOULDER SURGERY HX TONSILLECTOMY PRIMARY/SECONDARY <AGE 12 Tonsillectomy FAMILY HISTORY Problem Relation Age of Onset Heart Mother Hypertension Mother Lipids Father Diabetes Paternal Grandmother Breast Cancer Maternal Aunt Breast Cancer Maternal Aunt Social History Tobacco Use Smoking status: Never Smokeless tobacco: Never Vaping Use Vaping Use: Never used Substance Use Topics Alcohol use: No Drug use: No Current Outpatient Medications Medication Sig azelastine (ASTELIN) 0.1% nasal spray instill 2 sprays into each nostril twice a day buPROPion XL (WELLBUTRIN XL) 150 mg 24 hr tablet Take 150 mg by mouth every morning. cetirizine (ZYRTEC) 10 mg tablet Take 10 mg by mouth once daily. cyanocobalamin 1,000 mcg tab Take 1 tablet by mouth once daily. ergocalciferol, vitamin D2, 2,000 unit tab Take 1 tablet by mouth once each week. (Patient taking differently: Take 1 tablet by mouth one time a week. Daily) estradiol (ESTRACE) 0.01 % (0.1 mg/gram) vaginal cream Use 0.5g vaginally at bedtime for 2 weeks then 1-3 time/weeks for maintenance. fluorometholone (FML LIQUID FILM) 0.1 % ophthalmic suspension Use 1 Drop in both eyes twice daily. L. acidophilus-L. rhamnosus 15 billion cell cap Take 1 capsule by mouth once daily. FLORAJEN WOMEN.If on antibiotic, take at least 1-2 hours before or after antibiotic. KEEP REFRIGERATED norethindrone (AYGESTIN) 5 mg tablet Take 1 tablet TID until bleeding stops, the BID x 3 days, the daily x 3 days. OTC PRODUCT Take by mouth once daily. FD vanessa For acid reflux pantoprazole DR (PROTONIX) 40 mg tablet Take 40 mg by mouth once daily. RESTASIS MULTIDOSE 0.05 % drop put 1 drop in into both eyes twice a day SENOKOT-S 8.6-50 mg per tablet Take 2 tablets by mouth daily at bedtime. Daily, Every other day to every other day as needed tiZANidine (ZANAFLEX) 4 mg tablet Take 1 tablet by mouth once daily. traMADol (ULTRAM) 50 mg tablet take 1 tablet by mouth at bedtime if needed for pain No current facility-administered medications for this visit. Allergies As of Date: 12/09/2022 Allergen Noted Reaction REGLAN [METOCLOPRAMIDE HCL] 11/06/2013 Swelling and Other: See Comments AMOXICILLIN 05/14/2020 Other: See Comments DOXYCYCLINE 08/29/2007 GI Upset PHENTOLAMINE 06/13/2022 Hives Fully Assessed 12/09/2022 REVIEW OF SYSTEMS no changes Allergies and current medication updated:Yes EXAM: BP 124/72 Pulse 64 Resp 16 Ht 5' 0" (1.52m) Wt 148 lb (67.1kg) LMP 08/31/2008 BMI28.90 kg/(m^2). GENERAL: pleasant, female in no apparent distress Reveiwed pelvic US, EMB nad last pap and HRHZPV ASSESSMENT AND PLAN: PMB, thickened endometrium. Benign EMB but had quite a bit of bleeding that was not clinically vaginal source but uterine. So more thorough evaluation of uterus recommended. R/B/A to hysteroscopy D&C reviewed and patient desires to proceed. Meagan Link MD documented in this encounterE[facility]10-13-[facility] History and physical note * Meagan Link MD - 12/09/2022 12:01 PM EDT Pre-Op History and Physical HPI: The patient is a 67 year old female presenting for pre-operative visit. She is scheduled for Hysteroscopy D&C, for PMB and thickened endometrium on US on 01/16/23. Procedure discussed along with risks, benefits and complications. Other alternatives discussed for management. Consent form signed? Yes. PAST MEDICAL HISTORY Diagnosis Date Dysthymic disorder Depression (non-psychotic) Essential hypertension Generalized anxiety disorder Anxiety, Generalized Irritable bowel syndrome Irritable bowel Myalgia and myositis, unspecified Osteopenia after menopause 06/2021 Rotator cuff injury R side PAST SURGICAL HISTORY Procedure Laterality Date CHOLECYSTECTOMY Cholecystectomy COLONOSCOPY 05/2009 COLONOSCOPY FLX DX W/COLLJ SPEC WHEN PFRMD 05/2006 Colonoscopy COLONOSCOPY FLX DX W/COLLJ SPEC WHEN PFRMD 11/13/2013 ESOPHAGOGASTRODUODENOSCOPY TRANSORAL DIAGNOSTIC EGD ESOPHAGOGASTRODUODENOSCOPY TRANSORAL DIAGNOSTIC 11/13/2013 EGD INJECTION 12/07/2022 back NEUROPLASTY &/TRANSPOS MEDIAN NRV CARPAL TUNNE Carpal tunnel decomp, right PAST SURGICAL HISTORY OF Removal bone spur right shoulder PAST SURGICAL HISTORY OF 09/15/2017 removal part of colon for diverticulitis SHOULDER SURGERY HX TONSILLECTOMY PRIMARY/SECONDARY <AGE 12 Tonsillectomy Current Outpatient Medications Medication Sig Dispense Refill azelastine (ASTELIN) 0.1% nasal spray instill 2 sprays into each nostril twice a day buPROPion XL (WELLBUTRIN XL) 150 mg 24 hr tablet Take 150 mg by mouth every morning. cetirizine (ZYRTEC) 10 mg tablet Take 10 mg by mouth once daily. cyanocobalamin 1,000 mcg tab Take 1 tablet by mouth once daily. 0 ergocalciferol, vitamin D2, 2,000 unit tab Take 1 tablet by mouth once each week. (Patient taking differently: Take 1 tablet by mouth one time a week. Daily) 0 estradiol (ESTRACE) 0.01 % (0.1 mg/gram) vaginal cream Use 0.5g vaginally at bedtime for 2 weeks then 1-3 time/weeks for maintenance. 42.5 g 2 fluorometholone (FML LIQUID FILM) 0.1 % ophthalmic suspension Use 1 Drop in both eyes twice daily. L. acidophilus-L. rhamnosus 15 billion cell cap Take 1 capsule by mouth once daily. FLORAJEN WOMEN.If on antibiotic, take at least 1-2 hours before or after antibiotic. KEEP REFRIGERATED 30 capsule 11 norethindrone (AYGESTIN) 5 mg tablet Take 1 tablet TID until bleeding stops, the BID x 3 days, the daily x 3 days. 35 tablet 0 OTC PRODUCT Take by mouth once daily. FD vanessa For acid reflux pantoprazole DR (PROTONIX) 40 mg tablet Take 40 mg by mouth once daily. RESTASIS MULTIDOSE 0.05 % drop put 1 drop in into both eyes twice a day SENOKOT-S 8.6-50 mg per tablet Take 2 tablets by mouth daily at bedtime. Daily, Every other day to every other day as needed tiZANidine (ZANAFLEX) 4 mg tablet Take 1 tablet by mouth once daily. traMADol (ULTRAM) 50 mg tablet take 1 tablet by mouth at bedtime if needed for pain No current facility-administered medications for this visit. ALLERGIES: Reglan [Metoclopramide Hcl], Amoxicillin, Doxycycline, and Phentolamine PERSONAL HISTORY: Social History Tobacco Use Smoking status: Never Smokeless tobacco: Never Vaping Use Vaping Use: Never used Substance Use Topics Alcohol use: No Drug use: No FAMILY HISTORY: FAMILY HISTORY Problem Relation Age of Onset Heart Mother Hypertension Mother Lipids Father Diabetes Paternal Grandmother Breast Cancer Maternal Aunt Breast Cancer Maternal Aunt REVIEW OF SYMPTOMS: GENERAL: denies fevers or chills ENDOCRINOLOGY: has not been on steroids Cardiology : denies palpitations or chest pain Respiratory: denies SOB or cough Hematology: denies history of prolonged bleeding or easy bruising or VTE Allergy: Denies history of personal or family history of allergy to anesthesia PHYSICAL EXAMINATION: VITALS: Blood pressure 124/72, pulse 64, resp. rate 16, height 5' (1.524 m), weight 148 lb (67.1 kg), last menstrual period 08/31/2008. GENERAL: The patient is well nourished, well hydrated in no acute distress. , The patient is oriented to time, place, and person. NECK: Supple. No lynphadenopathy, normal thyroid, no thyromegaly. LUNGS: Clear to auscultation bilaterally. no wheezes, rhonchi or rales HEART: Regular rate and rhythm, Normal heart sounds, and No murmurs or gallops IMPRESSION: PMB/ thickened endometrium PLAN: The risks/benefits/alternatives and personal involved for the planned hsyteroscopy D&C with possible polyp resection were reviewed with the patient. Her questions were answered to her satisfaction and she desires to proceed. Consent was signed. I reviewed with her postop instructions and expectations. I have reviewed and updated past medical and surgical history, medications and allergies Meagan Link M.D. documented in this encounterE[facility]23 Miscellaneous Notes* Telephone Encounter - Anali Rico APRN.CNP - 11/25/2022 1:52 PM EDT I called and spoke with patient regarding her ultrasound report and her surgical pathology report. Patient wishes to proceed with hysteroscopy D&C for postmenopausal bleeding and thickened endometrial lining. Surgery sheet filled out. Anali Rico APRN.CNP documented in this encounterEly[facility]09-25-2023 Instructions* Patient Instructions* Samantha Jama RD - 11/21/2022 1:57 PM EDT Continue regular meals, include lean protein in each meal; aim for 20-30 grams per meal Continue mindful eating Add in weight resistance exercise (bands), 2-3 x per week Goal for weight loss 1-2 lb weight loss per week documented in this encounterEly[facility]09-25-2023 History of Present illness Narrative* Samantha Jama RD - 11/21/2022 1:41 PM EDT Nutritional Therapy Re-Assessment Nutrition Diagnosis: Overweight/obesity, related to, excess energy intake and physical inactivity, as evidenced by BMI above normative standard for age and gender RECOMMENDED MALNUTRITION DIAGNOSIS: NO MALNUTRITION IDENTIFIED NUTRITION CARE PLAN: Nutrition Intervention 11/21/2022: modify type and amount of food or beverage Continue regular meals, include lean protein in each meal; aim for 20-30 grams per meal Continue mindful eating Add in weight resistance exercise (bands), 2-3 x per week Goal for weight loss 1-2 lb weight loss per week Nutrition Monitoring & Evaluation: weight loss and labs in target range Need for Follow up: 4-6 weeks PROGRESS: Interval History: following as relates to current overweight BMI, goal to lose weight to be healthyand avoid diabetes. Had a vacation and the fair, couple meals out, surprised with lost weight. Other medical issues GERD, fibromyalgia, fatty liver, now something with uterus, having bleeding and this is being evaluated. Note 8 lbs lost since last visit, 19 lbs total lost since starting. Nutrition Intervention 10/17/22 Continue regular meals All meals and snacks at the dinner table; minimize distractions, no TV while eating. Make meals last at least 20 min, chew each bite of food 20 x per bite.Portion out all foods, never eat out of container. Become more mindful of meal: Enjoy flavors, textures etc. Use hunger/fullness scale. Follow the Plate Method at lunch and dinner: Use a 9" plate - 1/2 plate vegetables-non starchy such as green beans, greens, broccoli, cauliflower, etc (1 serving of fruit optional outside of plate) - 1/4 plate lean protein-primarily chicken, turkey fish, lean red 1-2 x per week at most (size of palm) - 1/4 plate whole grain or starchy vegetable such as corn, peas, potatoes, beans (size of fist, 1 cup) All meals and snacks at the dinner table; minimize distractions, no TV while eating. Make meals last at least 20 min, chew each bite of food 20 x per bite.Portion out all foods, never eat out of container. Become more mindful of meal: Enjoy flavors, textures etc. Use hunger/fullness scale. If dinner is around 6-6:30 plan an evening snack of 100-150 calories (if later dinner then no snack) Consider keeping a food record or log (OK for 2-3 x per week) Focus on eating if hungry and stop when comfortable, not full Actions to implement interventions: Usually the protein and veg Mindful eating Occ snacks Diet History: Brunch - eggs, toast, coffee Snack - occ fruit Dinner - eggs and veggies, melendez beans, peas, green beans, etc, Snack - cereal with blueberries Beverages - coffee, ice drinks, water Alcohol - no Vitamins/Supplements - no change Activity: Activities of Daily Living: varies Additional Activity: Sedentary (Little or no exercise: <1x/week) Limited, has been busy with medical appts Anthropometrics: Height: Last 1 Encounter Ht Readings: Date: Ht: 11/21/2022 154.9 cm (5' 1") Current weight: Last 1 Encounter Wt Readings: Date: Wt: 11/21/2022 66.7 kg (147 lb 2.4 oz) Body mass index is 27.8 kg/m . Resting Metabolic Rate: 1144 Malnutrition Screening Significant unintentional weight loss? No Eating less than 75% of usual intake for more than 2 weeks? No Potential Signs of Inflammation: no identifiable sources Nutritional status: Education Materials Provided: None this visit READINESS TO LEARN Cognitive ability: Alert and oriented Motivation to learn: Interested Family support: Unable to assess - Family not present Instruction provided to: Patient Patient learns best by: Individual Instruction Factors affecting learning: None Physical limitations affecting learning: None Likelihood of Adherence: Moderate Referred/Supervised by: Tomasa/Greg MCKEON Billing Type: Re-assess/15 min 2 units SIGNATURE: Samantha Jama RD PATIENT NAME: Yvonne Lomeli DATE: November 21, 2022 TIME: 1:44 PM documented in this encounterE[facility]09-22-2023 Instructions* Patient Instructions* Anali Rico APRN.CNP - 11/18/2022 10:08 AM EDT YOUR RECOVERY After your biopsy you may have: Vaginal bleeding (less than a normal menstrual period) Mild cramping Do NOT put anything in the vagina for 1 week after your endometrial biopsy. This includes: tampons douches and refraining from having sexual intercourse If you have any discomfort, you may take an over the counter pain medication (motrin, advil, ibuprofen, tylenol, etc). If this does not relieve your discomfort, contact the office. It is okay to wear a sanitary pad until the discharge and spotting stops. RISKS Although problems seldom occur with endometrial biopsies, there can be some complications. You may feel faint during and shortly after the procedure as well as have some bleeding after the procedure.There is also a risk of infection after the procedure. These complications are rare and can be easily treated. You should contact you doctor is you have any of the following: Heavy bleeding (more than your normal period) Bleeding with clots Severe abdominal pain Fever (more than 100.4F) Foul smelling vaginal discharge RESULTS We will have the results of your biopsy in 1-2 weeks. If you do not hear the results of your biopsyafter 2 weeks, please contact the office for the results. If you have any additional questions or concerns please do not hesitate to contact the office. documented in this encounterE[facility]09-22-2023 History of Present illness Narrative* Anali Rico APRN.CNP - 11/18/2022 8:57 AM EDT Yvonne is a 67 year old who presents today for an endometrial biopsy for post menopausal bleeding. Patient states that she has been having vaginal bleeding for about 3 to 4 days, she thought it was related to her pessary moving when she has to strain for a bowel movement. Upon removing pessary thereare no obvious vaginal erosion, but blood was coming out from the cervix. test: n/a UNIVERSAL PROTOCOL / SAFETY CHECKLIST Procedure to be Performed: Endometrial biopsy Sign In: A Moment of CARE was completed. Personnel directly involved with the procedure wore the appropriate PPE (Personal Protective Equipment). Patient/Surrogate Stated/Verified: PATIENT VERIFIED(optional for EMERGENT procedures): Patient name, Date of , Relevant allergies, and The intended procedure Time Out Communication: Intended patient and procedure match the source documents. Consent documented and matches the intended procedure. Sign Out: SIGN OUT (optional for EMERGENT procedures): All specimen containers correctly labeled. No instruments, equipment or retained foreign bodies applicable. Post-procedure follow-up management communicated and Plan of Care Visit completed when applicable. Anali Rico APRN.CNP PROCEDURE: EXTERNAL GENITALIA: Normal in appearance without lesions VAGINA: Normal in appearance without lesions BIOPSY: Speculum placed into the vagina with excellent visualization of the cervix. Cervix cleaned with betadine. Anterior lip of cervix grasped with single toothed tenaculum. Uterus sounded to 7-8 cm. Pipelle inserted into the uterus without difficulty and endometrial biopsy obtained. Specimen labeled and sent to pathology. Hemostasis achieved. Procedure Summary: Patient tolerated procedure well. ASSESSMENT: post menopausal bleeding PLAN: Specimens labeled and sent to Pathology. Will notify patient of results in 1-2 weeks. Post-procedure instructions reviewed and written material given to the patient. Pelvic ultrasound ordered Anali Rico APRN.CNP documented in this encounterE[facility]09-21-2023 Miscellaneous Notes* Telephone Encounter - Sherly Rizo LPN - 11/17/2022 1:35 PM EDT Pt returned call and was given below message and voiced understanding. Sherly Rizo LPN * Telephone Encounter - Tari Marlow LPN - 11/17/2022 1:31 PM EDT Left message to call office * Telephone Encounter - Anali Rico APRN.CNP - 11/17/2022 11:24 AM EDT Yes it is fine for her to wean to till tomorrow. The bleeding is probably just from her reinsertingthe pessary. Anali Rico APRN.CNP * Telephone Encounter - Chelsea Tom RN - 11/17/2022 8:13 AM EDT Patient had a bowel movement and her pessary started to come out. She pushed the pessary back in place. This happened yesterday. Since then she is experiencing spotting to more than spotting. Wearinga pad. Offered her a 0900 with AG. Patient would not be able to make in time. Scheduled her tomorrow morning. Patient asking that a note be sent to inquiring if waiting until tomorrow is okay. No other available openings at the time of this note. Chelsea Tom RN documented in this encounterEly[facility]08-22-2023 Miscellaneous Notes* Telephone Encounter - Tari Marlow LPN - 10/18/2022 9:27 AM EDT Patient notified * Telephone Encounter - Anali Rico APRN.CNP - 10/18/2022 7:35 AM EDT Please let the patient know that her vaginal culture was negative for BV and yeast. As discussed during office visit yesterday try cutting back Estrace cream to 2-3 times a week and see if that helpswith irritation. Anali Rico APRN.CNP documented in this encounterEly[facility]08-21-2023 History of Present illness Narrative* Anali Rico APRN.CNP - 10/17/2022 2:20 PM EDT Employment Manager offered: Patient declines. Yvonne Lomeli is a 67 year old who presents today for pessary insertion/cleaning. She wears a size 3 ring with support pessary. She returns today with complaints of itching. She has not had problems with the pessary. She has not had vaginal discharge. She has not had vaginal bleeding. EXAM: pleasant, well developed, well nourished, in no apparent distress Pelvic: Bartholin's, urethra and [place]'s glands were normal. The ring with support pessary was removed. Vaginal exam indicated no erythema, no ulcerations, and vaginal discharge. The pessary was cleaned a size 3 ring with support was inserted without difficulty The pessary was inserted, patient tolerated the procedure well and the device is comfortable. ASSESSMENT/PLAN: 1. Female bladder prolapse - ICD9: 618.01, ICD10: N81.10 (primary diagnosis) 2. Vaginal itching - ICD9: 698.1, ICD10: N89.8 - BACT/SHARLENE VAG GRAM STAIN 3. Encounter for pessary maintenance - ICD9: V53.99, ICD10: Z46.89 - Estrace cream reordered Will notify patient of test results. Anali Rico APRN.CNP Medical Decision Making: Problems: Low: Acute, uncomplicated illness or injury Data: Unique test(s) ordered: 2 Risk: Low: Low risk from testing/treatment Moderate: Drug management Medical Decision Making Level: 3 - Low documented in this encounterEly[facility]08-21-2023 Instructions* Patient Instructions* Samantha Jama, KARY - 10/17/2022 12:35 PM EDT Continue regular meals All meals and snacks at the dinner table; minimize distractions, no TV while eating. Make meals last at least 20 min, chew each bite of food 20 x per bite.Portion out all foods, never eat out of container. Become more mindful of meal: Enjoy flavors, textures etc. Use hunger/fullness scale. Follow the Plate Method at lunch and dinner: Use a 9" plate - 1/2 plate vegetables-non starchy such as green beans, greens, broccoli, cauliflower, etc (1 serving of fruit optional outside of plate) - 1/4 plate lean protein-primarily chicken, turkey fish, lean red 1-2 x per week at most (size of palm) - 1/4 plate whole grain or starchy vegetable such as corn, peas, potatoes, beans (size of fist, 1 cup) All meals and snacks at the dinner table; minimize distractions, no TV while eating. Make meals last at least 20 min, chew each bite of food 20 x per bite.Portion out all foods, never eat out of container. Become more mindful of meal: Enjoy flavors, textures etc. Use hunger/fullness scale. If dinner is around 6-6:30 plan an evening snack of 100-150 calories (if later dinner then no snack) Consider keeping a food record or log (OK for 2-3 x per week) Focus on eating if hungry and stop when comfortable, not full documented in this encounterElyria [facility]08-21-2023 History of Present illness Narrative* Samantha Jama RD - 10/17/2022 12:13 PM EDT Nutritional Therapy Re-Assessment Nutrition Diagnosis: Overweight/obesity, related to, excess energy intake and physical inactivity, as evidenced by BMI above normative standard for age and gender RECOMMENDED MALNUTRITION DIAGNOSIS: NO MALNUTRITION IDENTIFIED NUTRITION CARE PLAN: Nutrition Intervention 10/17/2022: modify type and amount of food or beverage Continue regular meals All meals and snacks at the dinner table; minimize distractions, no TV while eating. Make meals last at least 20 min, chew each bite of food 20 x per bite.Portion out all foods, never eat out of container. Become more mindful of meal: Enjoy flavors, textures etc. Use hunger/fullness scale. Follow the Plate Method at lunch and dinner: Use a 9" plate - 1/2 plate vegetables-non starchy such as green beans, greens, broccoli, cauliflower, etc (1 serving of fruit optional outside of plate) - 1/4 plate lean protein-primarily chicken, turkey fish, lean red 1-2 x per week at most (size of palm) - 1/4 plate whole grain or starchy vegetable such as corn, peas, potatoes, beans (size of fist, 1 cup) All meals and snacks at the dinner table; minimize distractions, no TV while eating. Make meals last at least 20 min, chew each bite of food 20 x per bite.Portion out all foods, never eat out of container. Become more mindful of meal: Enjoy flavors, textures etc. Use hunger/fullness scale. If dinner is around 6-6:30 plan an evening snack of 100-150 calories (if later dinner then no snack) Consider keeping a food record or log (OK for 2-3 x per week) Focus on eating if hungry and stop when comfortable, not full Nutrition Monitoring & Evaluation: half to one pound weight loss per week Need for Follow up: 4-6 weeks PROGRESS: Interval History: following as relates to weight, to lose weight and to be healthy and avoid diabetes. Other medical issues GERD, fibromyalgia, fatty liver. Following recommendations well, able to lose 9.5 lbs since last visit. Including exercise most days time permitting. Nutrition Intervention 09/12/22 Add in 30 min cardio most days All grains whole grain/high fiber, no white refined grains All beverages calorie free and sugar free, try sparkling water ([place], Spindrift, Bubbly, Vanessa, [place], [place]) For noon meal, continue 2 eggs, add a slice of whole grain toast with pbn Snack around 3- OK for one cup fruit; Follow the Plate Method at lunch and dinner: Use a 9" plate - 1/2 plate vegetables-non starchy such as green beans, greens, broccoli, cauliflower, etc (1 serving of fruit optional outside of plate) - 1/4 plate lean protein-primarily chicken, turkey fish, lean red 1-2 x per week at most (size of palm) - 1/4 plate whole grain or starchy vegetable such as corn, peas, potatoes, beans (size of fist, 1 cup) All meals and snacks at the dinner table; minimize distractions, no TV while eating. Make meals last at least 20 min, chew each bite of food 20 x per bite.Portion out all foods, never eat out of container. Become more mindful of meal: Enjoy flavors, textures etc. Use hunger/fullness scale. If dinner is around 6-6:30 plan an evening snack of 100-150 calories (if later dinner then no snack) Consider keeping a food record or log (OK for 2-3 x per week) Actions to implement interventions: Stopped sugar beverages Including exercise as able Diet History: Brunch - 2 eggs, and WG toast plain and coffee with stevia and 2% milk lactaid; occ oatmeal Snack - occ fruit Dinner - eggs and veggies; chicken and veggies; ice drinks Snack - nuts, cereal (Life cereal) Beverages - coffee, Ice drinks, water, Alcohol - no Vitamins/Supplements - tumeric, B12, B complex, vit C, vit D3 Activity: Activities of Daily Living: varies Additional Activity: Moderately active (Moderate intensity exercise: Planned physical activity 3-5 days/week) Walk most days unless really busy Anthropometrics: Height: Last 1 Encounter Ht Readings: Date: Ht: 10/17/2022 152.4 cm (5') Current weight: Last 1 Encounter Wt Readings: Date: Wt: 10/17/2022 70.5 kg (155 lb 6.4 oz) Body mass index is 30.35 kg/m . Resting Metabolic Rate: 1166 Malnutrition Screening Significant unintentional weight loss? No Eating less than 75% of usual intake for more than 2 weeks? No Potential Signs of Inflammation: no identifiable sources Nutritional status: Education Materials Provided: None this visit READINESS TO LEARN Cognitive ability: Alert and oriented Motivation to learn: Interested Family support: Unable to assess - Family not present Instruction provided to: Patient Patient learns best by: Individual Instruction Factors affecting learning: None Physical limitations affecting learning: None Likelihood of Adherence: Moderate Referred/Supervised by: Tomasa/Greg MNAvni Billing Type: Re-assess/15 min 2 units SIGNATURE: Samantha Jama RD PATIENT NAME: Yvonne Lomeli DATE: October 17, 2022 TIME: 12:14 PM documented in this encounterEly[facility]07-17-2023 Instructions* Patient Instructions* Samantha Jama RD - 09/12/2022 12:53 PM EDT Add in 30 min cardio most days All grains whole grain/high fiber, no white refined grains All beverages calorie free and sugar free, try sparkling water ([place], Sp[place]rift, Bubbly, Vanessa, [place], [place]) For noon meal, continue 2 eggs, add a slice of whole grain toast with pbn Snack around 3- OK for one cup fruit; Follow the Plate Method at lunch and dinner: Use a 9" plate - 1/2 plate vegetables-non starchy such as green beans, greens, broccoli, cauliflower, etc (1 serving of fruit optional outside of plate) - 1/4 plate lean protein-primarily chicken, turkey fish, lean red 1-2 x per week at most (size of palm) - 1/4 plate whole grain or starchy vegetable such as corn, peas, potatoes, beans (size of fist, 1 cup) All meals and snacks at the dinner table; minimize distractions, no TV while eating. Make meals last at least 20 min, chew each bite of food 20 x per bite.Portion out all foods, never eat out of container. Become more mindful of meal: Enjoy flavors, textures etc. Use hunger/fullness scale. If dinner is around 6-6:30 plan an evening snack of 100-150 calories (if later dinner then no snack) Consider keeping a food record or log (OK for 2-3 x per week) documented in this encounterEly[facility]07-17-2023 History of Present illness Narrative* Samantha Jama RD - 09/12/2022 12:22 PM EDT Nutrition Therapy Initial Assessment Nutrition Diagnosis: Behavioral-Environmental: Food and nutrition related knowledge deficit, related to, lack of prior exposure to information , as evidenced by change in existing diagnosis or condition. RECOMMENDED MALNUTRITION DIAGNOSIS: NO MALNUTRITION IDENTIFIED NUTRITION CARE PLAN Nutrition Intervention 09/12/2022: modify type and amount of food or beverage Add in 30 min cardio most days All grains whole grain/high fiber, no white refined grains All beverages calorie free and sugar free, try sparkling water ([place], [place], Bubbly, [place], [place], [place]) For noon meal, continue 2 eggs, add a slice of whole grain toast with pbn Snack around 3- OK for one cup fruit; Follow the Plate Method at lunch and dinner: Use a 9" plate - 1/2 plate vegetables-non starchy such as green beans, greens, broccoli, cauliflower, etc (1 serving of fruit optional outside of plate) - 1/4 plate lean protein-primarily chicken, turkey fish, lean red 1-2 x per week at most (size of palm) - 1/4 plate whole grain or starchy vegetable such as corn, peas, potatoes, beans (size of fist, 1 cup) All meals and snacks at the dinner table; minimize distractions, no TV while eating. Make meals last at least 20 min, chew each bite of food 20 x per bite.Portion out all foods, never eat out of container. Become more mindful of meal: Enjoy flavors, textures etc. Use hunger/fullness scale. If dinner is around 6-6:30 plan an evening snack of 100-150 calories (if later dinner then no snack) Consider keeping a food record or log (OK for 2-3 x per week) Nutrition Monitoring & Evaluation: half to one pound weight loss per week Need for Follow up: 4-6 weeks Patient presents for initial MNT as relates to weight loss, to be healthy and avoid diabetes. Class1 obesity Body mass index is 32.52 kg/m . Other medical issues GERD, fibromyalgia, states fatty liver. Desires weight loss to 130 range. Intake noted for eating two meals with snacks. Includes high amount sugar beverages, desserts weekly . Has frequent meals out and celebrations. Includes some activity but no regular exercise . Patient's symptoms are: Weight Concerns: failure to lose weight Diet History: wake 9-10 Breakfast - no Snack - no Lunch - noon: 2 eggs, coffee with lactaid milk and collagen and stevia Snack - bowl fruit Dinner - 6:30-8-meat (chicken, turkey botswanan sausage, green beans, potato ,rice or pasta; yesterdaycheesey potatoes; sweet tea, Snack - frozen fruit bar no sugar; sweet tea, reg sprite, occ pretzels BED:11:30-12- (nibble on prezles Beverages - coffee, sprite, sweet tea, water Alcohol- no Vitamins/Supplements - B12, B complex, C, D3 Try for one sweet/desert per week - psc pie or cake, etc. Activity: Activities of Daily Living: varies Additional Activity: Sedentary (Little or no exercise: <1x/week) Yard work Anthropometrics: Height: Last 1 Encounter Ht Readings: Date: Ht: 09/12/2022 152.4 cm (5') Current weight: Last 1 Encounter Wt Readings: Date: Wt: 09/12/2022 75.5 kg (166 lb 8 oz) Body mass index is 32.52 kg/m . Resting Metabolic Rate: 1216 Malnutrition Screening Significant unintentional weight loss? No Eating less than 75% of usual intake for more than 2 weeks? No Potential Signs of Inflammation: no identifiable sources Education Materials Provided: Plate method READINESS TO LEARN Cognitive ability: Alert and oriented Motivation to learn: Interested Family support: Unable to assess - Family not present Instruction provided to: Patient Patient learns best by: Individual Instruction Factors affecting learning: None Physical limitations affecting learning: None Referred/Supervised by: Tomasa/Greg MCKEON Billing Type: Initial Assess/15 min 2 units SIGNATURE: Samantha Jama RD PATIENT NAME: Yvonne Lomeli DATE: September 12, 2022 TIME: 12:24 PM documented in this encounterE[facility] History of Present illness Narrative* Anali Rico APRN.CARTON LINER - 08/02/2022 10:05 AM EDT Yvonne is a 67 year old who presents for an annual gynecologic exam without complaints. 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 Comments: Sexual Activity: Not Currently; No partner data on record Contraception: No contraception data on record PAST MEDICAL HISTORY Diagnosis Date Dysthymic disorder Depression (non-psychotic) Essential hypertension Generalized anxiety disorder Anxiety, Generalized Irritable bowel syndrome Irritable bowel Myalgia and myositis, unspecified Osteopenia after menopause 06/2021 Rotator cuff injury R side PAST SURGICAL HISTORY Procedure Laterality Date CHOLECYSTECTOMY Cholecystectomy COLONOSCOPY 06/06 COLONOSCOPY FLX DX W/COLLJ SPEC WHEN PFRMD 06/03 Colonoscopy COLONOSCOPY FLX DX W/COLLJ SPEC WHEN PFRMD 11-13-13 ESOPHAGOGASTRODUODENOSCOPY TRANSORAL DIAGNOSTIC EGD ESOPHAGOGASTRODUODENOSCOPY TRANSORAL DIAGNOSTIC 11-13-13 EGD NEUROPLASTY &/TRANSPOS MEDIAN NRV CARPAL TUNNE Carpal tunnel decomp, right PAST SURGICAL HISTORY OF Removal bone spur right shoulder PAST SURGICAL HISTORY OF 09/15/2017 removal part of colon for diverticulitis SHOULDER SURGERY HX TONSILLECTOMY PRIMARY/SECONDARY <AGE 12 Tonsillectomy FAMILY HISTORY Problem Relation Age of Onset Heart Mother Hypertension Mother Lipids Father Diabetes Paternal Grandmother Breast Cancer Maternal Aunt Breast Cancer Maternal Aunt SOCIAL HISTORY Social History Tobacco Use Smoking status: Never Smokeless tobacco: Never Vaping Use Vaping Use: Never used Substance Use Topics Alcohol use: No Drug use: No REVIEW OF SYSTEMS Abdomen: No abdominal pain, nausea, vomiting, diarrhea, + constipation. No bloating, early satiety,indigestion, or increased flatulence. Bladder: No dysuria, gross hematuria, +urinary frequency, +urinary urgency without the pessary Breast: No breast lumps, nipple d/c, overlying skin changes, redness or skin retraction Allergies and current medication updated:Yes EXAM: Ht 5' 0" (1.52m) Wt 167 lb (75.8kg) LMP 08/31/2008 BMI 32.62 kg/(m^2). GENERAL: pleasant, female in no apparent distress HEENT: Normocephalic, atraumatic, mucus membranes moist, and no lesions NECK: Supple, full range of motion, no adenopathy, and thyroid normal DERMATOLOGY: Normal, without lesions, non-icteric, and non-hirsute BREAST: soft, non-tender, symmetric, no dominant mass, normal nipple-areolar complex, no lymphadenopathy, no nipple discharge, and mole next to the left nipple CHEST: Normal inspiratory effort ABDOMEN: soft, non-tender, and no masses PELVIC: external genitalia normal, normal Bartholin's glands, urethra, [place]'s glands, no vulvar lesions, no cervical lesions, physiologic discharge present, normal appearing perineal body and perianal region, cystocele 2nd degree BIMANUAL: uterus normal size, shape and consistency, no adnexal masses, and non-tender RECTOVAGINAL: deferred. NEURO: alert and oriented x3,exam grossly non-focal EXTREMITIES: normal ASSESSMENT/PLAN: 1) Health maintenance: Pap/HPV screening no longer needed Mammogram ordered Nutrition, exercise and routine health maintenance exams reviewed. Calcium/Vitamin D supplementation information provided. Colon cancer screening: follow up GI specialist BMD: up to date 2) Follow up one year or sooner as needed Pessary replaced today- Dr Chawla information given to pt Anali Rico APRN.MARTINA documented in this encounterE[facility]04-[facility] Discharge summary Author Lily Medina [facility] June 01, 2022 12:00pm Note Date/Time June 01, 2022 12:0 0pm [facility] Physical Therapy [facility] [address] [place] [address] [address] [place] [address] / REHABILITATION SERVICES DISCHARGE SUMMARY MR#: [id number] Acct: [id number] Name: YVONNE LOMELI Rep #: [id number] : 1955 66 From: Lily Medina PT, Cert. MDT Referring DrLynnette: FLORIAN Solano Status: REG R [facility] It has been my pleasure to treat YVONNE LOMELI referred by FLORIAN Quiñones, with the diagnosis of LUMBOSACRAL DDD/RADICULOPATHY/SPONDYLOSIS/FACET ARTHROPATHY for a total of 6 visit(s). Discharge Date: Please see the following information for a summary of their discharge status. Subjective: PATIENT REPORTS SHE IS HAVING SOME UPPER BACK PAIN NOW TOO. STILL HAVING LOW BACK PAIN. "I CAN'T SAY THE PAIN IN MY BACK GOT WORSE" LAST SESSION BUT OVER-ALL STATES SHE THINKS THERAPY IS CAUSING HER MORE PAIN. STATES SHE HASNOT DONE HER HEP. "I CAN'T REALLY SAY I AM FEELING IMPROVEMENT". 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 PATIENT REPORTS SHEDOESN'T THINK SHE WOULD BE AFRAID OF DOING THERAPY IF SHE HAD AN MRI AND IT DIDN'T SHOW ANYTHING SERIOUS GOING ON. LOW BACK PAIN Pain Intensity (Out of 10): 2 R LE Pain Intensity (Out of 10): 3 L LE Pain Intensity (Out of 10): 0 Objective/Function: IT IS DIFFICULT FOR THIS PT TO FOLLOW ALL OF PATIENTS REPORTS OF SX'S AND HOW THEY RELATE TO PT VS HER INDEP ADL'S. UPON EXAM TODAY THERE ARE NO SIGNIFICANT OBJECTIVE CHANGES COMPARED TO INITIAL EVAL. PATIENT ISNOT IMPROVING AND HAS COMPLAINT OF MULTIPLE AREAS OF PAIN ON HER BODY THAT ARE HARD TO INTERPRET. THIS PT RECOMMENDED PHYSICIAN RE-ASSESSMENT AND PATIENT IS AGREEABLE. Goal 1:: DECREASE C/O LOW BACK PAIN Goal Progress: Not Progressing Goal 2:: IMPROVE LIFTING, SITTING, STANDING, STAIR CLIMBING AND HOUSEWORK FUNCTION Goal Progress: Not Progressing Goal 3:: INSTRUCT IN PROPHYLAXIS Goal Progress: Not Progressing Plan: D/C DUE TO LACK OF PROGRESS AND PATIENTS RELUCTANCE TO DO EX. If there are questions or concerns regarding this patient's physical therapy, please feel free to call me at [phone]. Thank you for the referral of thispatient. Sincerely, Lily Medina, PT, Cert MDT Balance/Gait/Functional tests - Balance/Special Test Scores Oswestry Low Back Score: 8 30 Second Chair Rise Test Seconds: 7 <Electronically signed by Lily Medina PT, Cert. MDT> 06/01/22 1200 CC: FLORIAN Solano; Dr. Soo Ladd MD ~ SELMA Signed [facility] Work Phone: 1(561) 832-259010-07-2022 Miscellaneous Notes* Telephone Encounter - Theodora Zambrano RN - 12/03/2021 10:22 AM EDT Patient notified. Theodora Zambrano RN * Telephone Encounter - Keeley Gross RN - 12/03/2021 8:53 AM EDT Left message to call office. Keeley Gross RN * Telephone Encounter - Anali Rico APRN.CNP - 12/03/2021 8:46 AM EDT Please let the patient know that the vaginal swab was negative for infection and that I want her tocontinue the daily estrogen. Anali Rico APRN.CNP documented in this encounterEly[facility]10-06-2022 History of Present illness Narrative* Anali Rico APRN.CNP - 12/02/2021 1:15 PM EDT Employment Manager offered: Patient declines. Yvonne Lomeli is a 66 year old who presents today for pessary insertion/cleaning. She wears a size 3 ring with support pessary. She returns today with complaints of spotting for the past month. EXAM: pleasant, well developed, well nourished, in no apparent distress Pelvic: Bartholin's, urethra and [place] Amar[place]'s glands were normal. The ring with support pessary was removed. Vaginal exam indicated ulcerations. The pessary was cleaned not replaced ASSESSMENT/PLAN: 1. Ulcerative mucositis of vagina - ICD9: 616.81, ICD10: N76.81 (primary diagnosis) - Pt to use vaginal Estrogen cream daily x 1 month and then return to office for follow up 2. Vaginal irritation - ICD9: 623.9, ICD10: N89.8 - BACT/SHARLENE VAG GRAM STAIN Anali Rico APRN.CNP Medical Decision Making: Problems: Low: Acute, uncomplicated illness or injury Data: Unique test(s) ordered: 1 Risk: Low: Low risk from testing/treatment Moderate: Drug management Medical Decision Making Level: 3 - Low documented in this encounterElyria [facility]10-05-2022 Miscellaneous Notes* Telephone Encounter - Theodora Zambrano RN - 12/01/2021 11:10 AM EDT Patient called and scheduled with tomorrow. Theodora Zambrano RN * Telephone Encounter - Katheryn Meza - 12/01/2021 10:52 AM EDT Patient called [facility] main scheduling line. The schedule reached out to [employer] phones inan attempt to get ahold of a nurse. Nurses were unavailable to take call. Patient is currently scheduled to be seen by Anali Rico on 12/14/21. She requests call from clinical staff for concerns ofexperiencing previous symptoms that resulted in surgery. She is wondering if it is safe for her to wait so long prior to being seen. Please contact the patient to advise on plan of care. documented in this encounterElyria [facility]05-24-2022 Miscellaneous Notes* Telephone Encounter - Keeley Gross RN - 07/20/2021 11:38 AM EDT Patient notified of results, verbalizes understanding of instructions. Keeley Gross RN * Telephone Encounter - Chelsea Tom RN - 07/19/2021 3:34 PM EDT Left message for patient to call office. Chelsea Tom RN * Telephone Encounter - Anali Rico APRN.CNP - 07/19/2021 3:23 PM EDT Please let the pt know that her bone scan shows osteopenia. I would like her to be taking Calcium 1200 mg and Vitamin D 1000 units in a divided dose daily. Along with doing weight bearing exercises to help slow the loss of bone mass. Thanks, Anali Rico APRN.CNP documented in this encounterElyria [facility]05-23-2022 Miscellaneous Notes* Letter - Mammography Coordinator - 07/19/2021 1:59 PM EDT July 19, 2021 PID: [id number] Yvonne Lomeli [address] [place] [address] Dear Ms. Lomeli, We are pleased to inform you that the results of your recent breast imaging exam on 07/19/2021 are normal. Early detection of cancer is very important. We also understand recommendations regarding breast cancer screening are controversial. Please discuss with your primary care provider which strategy is best for you and whether a mammogram is right for you. Your imaging studies and report will be kept on file at [facility] as part of your permanent medical record and are available for your continuing care. Thank you for allowing us to help in meeting your health care needs. Sincerely, Dr. Adorno Interpreting Radiologist [facility] (Normal over 40) documented in this encounterElyria [facility] Hospital05-23-2022 History of Present illness Narrative* RT Raghavendra(R) - 07/19/2021 1:30 PM EDT Radiology Service Progress Note PATIENT NAME: Yvonne Lomeli DATE OF SERVICE: July 19, 2021 TIME: 1:32 PM PATIENT IDENTITY VERIFICATION COMPLETED USING TWO (2) IDENTIFIERS: Name and Date of confirmedby patient verbally. FALL SCREENING: Has the patient had 2 falls in the last year or 1 fall with injury or currently using an Ambulatory Assistive Device (Walker, Cane, Wheelchair, Crutches, etc.)? No PATIENT GENDER DATA: Female. status: : No status: NO. PATIENT RELEVANT IMPLANT DATA REVIEWED: Not Applicable RADIOLOGY DEPARTMENT: Bone Density PERIPHERAL IV DATA: Not applicable SIGNED BY: RT Raghavendra(R) July 19, 2021 1:32 PM documented in this encounterElyria [facility] Hospital05-23-2022 History of Present illness Narrative* RT Oc(R) - 07/19/2021 1:10 PM EDT Radiology Service Progress Note PATIENT NAME: Yvonne Lomeli DATE OF SERVICE: July 19, 2021 TIME: 1:12 PM PATIENT IDENTITY VERIFICATION COMPLETED USING TWO (2) IDENTIFIERS: Name and Date of confirmedby patient verbally. FALL SCREENING: Has the patient had 2 falls in the last year or 1 fall with injury or currently using an Ambulatory Assistive Device (Walker, Cane, Wheelchair, Crutches, etc.)? No PATIENT GENDER DATA: Female. status: : No status: NO. PATIENT RELEVANT IMPLANT DATA REVIEWED: Not Applicable RADIOLOGY DEPARTMENT: Mammography PERIPHERAL IV DATA: Not applicable SIGNED BY: RT Oc(R) July 19, 2021 1:12 PM documented in this encounterElyria [facility]04-28-2022 History of Present illness Narrative* Anali Rico APRN.CARTON LINER - 06/24/2021 1:06 PM EDT Yvonne Lomeli is a 65 year old who presents today for pessary insertion/cleaning. She wears a size 3 ring with support pessary. She returns today with no complaints. She has not had vaginal discharge. She has not had vaginal bleeding. EXAM: pleasant, well developed, well nourished, in no apparent distress Pelvic: Bartholin's, urethra and [place] Amar[place]'s glands were normal. Vaginal exam indicated no erythema, noulcerations and no vaginal discharge. The pessary was cleaned a size 3 ring with support was inserted without difficulty The pessary was inserted, patient tolerated the procedure well and the device is comfortable. . ASSESSMENT/PLAN: 1. Bladder prolapse, female, acquired - ICD9: 618.01, ICD10: N81.10 (primary diagnosis) 2. Pessary maintenance - ICD9: V53.99, ICD10: Z46.89 3. Encounter for screening mammogram for malignant neoplasm of breast - ICD9: V76.12, ICD10: Z12.31 - MONAE SCREENING 4. Encounter for screening for osteoporosis - ICD9: V82.81, ICD10: Z13.820 - DXA-AXIAL SKELETON Anali Rico APRN.CNP Medical Decision Making: Problems: Low: Stable chronic illness Data: Unique test(s) ordered: 2 Risk: Low: Low risk from testing/treatment Medical Decision Making Level: 3 - Low documented in this encounterElyria [facility]04-08-2022 Miscellaneous Notes* Telephone Encounter - Chelsea Tom RN - 06/04/2021 8:25 AM EDT Left detailed message on identified voicemail. Chelsea Tom RN * Telephone Encounter - Anali Rico APRN.CNP - 06/04/2021 7:32 AM EDT Please let the pt know that her vaginal swab is negative for infection. Anali Rico APRN.CNP documented in this encounterElyria [facility] Hospital04-07-2022 History of Present illness Narrative* Anali Rico APRN.CNP - 06/03/2021 9:04 AM EDT Yvonne Lomeli is a 65 year old who presents today for pessary insertion/cleaning. She wears a size 3 ring with support pessary. She returns today with complaints of spotting following straining and bowel movements. She has had vaginal discharge and recently was on antibiotics for dental work. EXAM: pleasant, well developed, well nourished, in no apparent distress Pelvic: Bartholin's, urethra and Tierra Amarilla's glands were atrophic. The ring with support pessary was removed. Vaginal exam indicated erythema on cervix and through vaginal blanco. Vaginal swab obtained to rule out infection. The pessary was cleaned and not replaced. Return in 3 weeks for pessary replacement after using vaginal cream. Ana Stuber, FILM OR VIDEOTAPE EDITOR student TEACHING PROVIDER (Physician/PA/FILM OR VIDEOTAPE EDITOR) NOTE OF PERSONAL INVOLVEMENT IN CARE: I have personally seen and examined the patient and performed the medical decision-making components. I have reviewed the Advanced Practice Registered Nurse (FILM OR VIDEOTAPE EDITOR) Student's documentation and verified the findings in the note as written. Any additions or changes are noted in bold/italics. Signature: Anali Rico Date: 06/03/2021 Time: 9:34 AM I spent a total of 20 minutes on the date of the service which included preparing to see the patient, [id number] patient care, completing clinical documentation, obtaining and/or reviewing separately obtained history, performing a medically appropriate examination and counseling and educating the patient/family/caregiver. documented in this encounterElyria [facility]06-30-2008 History of Past illness Narrative* Problem Noted Date Resolved Date Pain in limb 08/27/2007 05/29/2014 Ingrowing nail 08/27/2007 05/29/2014 documented as of this encounter (statuses as of 06/03/2021) [facility] illness Narrative* Problem Noted Date Resolved Date Pain in limb 08/27/2007 05/29/2014 Ingrowing nail 08/27/2007 05/29/2014 documented as of this encounter (statuses as of 06/04/2021) [facility] Narrative* Problem Noted Date Resolved Date Pain in limb 08/27/2007 05/29/2014 Ingrowing nail 08/27/2007 05/29/2014 documented as of this encounter (statuses as of 06/24/2021) [facility] Narrative* Problem Noted Date Resolved Date Pain in limb 08/27/2007 05/29/2014 Ingrowing nail 08/27/2007 05/29/2014 documented as of this encounter (statuses as of 07/20/2021) [facility] Narrative* Problem Noted Date Resolved Date Pain in limb 08/27/2007 05/29/2014 Ingrowing nail 08/27/2007 05/29/2014 documented as of this encounter (statuses as of 07/20/2021) [facility] Narrative* Problem Noted Date Resolved Date Pain in limb 08/27/2007 05/29/2014 Ingrowing nail 08/27/2007 05/29/2014 documented as of this encounter (statuses as of 07/21/2021) [facility] Narrative* Problem Noted Date Resolved Date Pain in limb 08/27/2007 05/29/2014 Ingrowing nail 08/27/2007 05/29/2014 documented as of this encounter (statuses as of 12/01/2021) [facility] Narrative* Problem Noted Date Resolved Date Pain in limb 08/27/2007 05/29/2014 Ingrowing nail 08/27/2007 05/29/2014 documented as of this encounter (statuses as of 12/02/2021) [facility] Narrative* Problem Noted Date Resolved Date Pain in limb 08/27/2007 05/29/2014 Ingrowing nail 08/27/2007 05/29/2014 documented as of this encounter (statuses as of 12/03/2021) [facility] Narrative* Problem Noted Date Resolved Date Pain in limb 08/27/2007 05/29/2014 Ingrowing nail 08/27/2007 05/29/2014 documented as of this encounter (statuses as of 07/28/2022) [facility] Narrative* Problem Noted Date Resolved Date Pain in limb 08/27/2007 05/29/2014 Ingrowing nail 08/27/2007 05/29/2014 documented as of this encounter (statuses as of 08/02/2022) [facility] Narrative* Problem Noted Date Diagnosed Date Resolved Date Pain in limb 08/27/2007 05/29/2014 Ingrowing nail 08/27/2007 05/29/2014 documented as of this encounter (statuses as of 09/12/2022) [facility] Narrative* Problem Noted Date Diagnosed Date Resolved Date Pain in limb 08/27/2007 05/29/2014 Ingrowing nail 08/27/2007 05/29/2014 documented as of this encounter (statuses as of 10/17/2022) [address]30-[address] History of Past illness Narrative* Problem Noted Date Diagnosed Date Resolved Date Pain in limb 08/27/2007 05/29/2014 Ingrowing nail 08/27/2007 05/29/2014 documented as of this encounter (statuses as of 10/18/2022) [address]30-2008 History of Past illness Narrative* Problem Noted Date Diagnosed Date Resolved Date Pain in limb 08/27/2007 05/29/2014 Ingrowing nail 08/27/2007 05/29/2014 documented as of this encounter (statuses as of 10/18/2022) [address]30[address] History of Past illness Narrative* Problem Noted Date Diagnosed Date Resolved Date Pain in limb 08/27/2007 05/29/2014 Ingrowing nail 08/27/2007 05/29/2014 documented as of this encounter (statuses as of 11/18/2022) [facility] Narrative* Problem Noted Date Diagnosed Date Resolved Date Pain in limb 08/27/2007 05/29/2014 Ingrowing nail 08/27/2007 05/29/2014 documented as of this encounter (statuses as of 11/18/2022) [facility] Narrative* Problem Noted Date Diagnosed Date Resolved Date Pain in limb 08/27/2007 05/29/2014 Ingrowing nail 08/27/2007 05/29/2014 documented as of this encounter (statuses as of 11/21/2022) [facility] Narrative* Problem Noted Date Diagnosed Date Resolved Date Pain in limb 08/27/2007 05/29/2014 Ingrowing nail 08/27/2007 05/29/2014 documented as of this encounter (statuses as of 11/26/2022) [facility] Narrative* Problem Noted Date Diagnosed Date Resolved Date Pain in limb 08/27/2007 05/29/2014 Ingrowing nail 08/27/2007 05/29/2014 documented as of this encounter (statuses as of 12/10/2022) [facility] Narrative* Problem Noted Date Diagnosed Date Resolved Date Pain in limb 08/27/2007 05/29/2014 Ingrowing nail 08/27/2007 05/29/2014 documented as of this encounter (statuses as of 12/19/2022) [facility] Narrative* Problem Noted Date Diagnosed Date Resolved Date Pain in limb 08/27/2007 05/29/2014 Ingrowing nail 08/27/2007 05/29/2014 documented as of this encounter (statuses as of 01/09/2023) [facility] History of Past illness Narrative* Problem Noted Date Diagnosed Date Resolved Date Pain in limb 08/27/2007 05/29/2014 Ingrowing nail 08/27/2007 05/29/2014 documented as of this encounter (statuses as of 04/17/2023) [facility] Meagan Link [facility] December 16, 2022 3:55pm Note Date/Time December 16, 2022 3 :55pm [facility] Medical Records Department [address] [place] [id number] Instructions for Home/Discharge Instructions 12/16/22 1554 MR#: [id number] Acct: [id number] Name: YVONNE LOMELI Rep #:[id number] : 1955 67 From: Meagan Link MD PCP: Dr. Soo Ladd MD Status:R EG [facility] Discharge Instructions Diet Discharge Diet: No restrictions Activity May shower in (days): 1 May resume sexual activity in: 2 weeks Lifting Restrictions: none Dressing / Incision Call your doctor if your incision/area has: Sudden Increased Bleeding and Foul Smelling Discharge Call your doctor if you observe: Fever of 101 or Higher and Using more than 1 pad per hour (for 2 hrs in a row) Follow Up Care Please Follow Up With: Meagan Link MD When: You do not need a postop appointment. We will contact you with your pathology. Call [phone] to make an appointment or with any concerns or send a [employer] message. Test Results: Test results from this visit will be discussed in further detail at your follow- up appointment, if applicable. Discharge Plan Admission Attending Provider: Meagan Link Primary Care Provider: Soo Ladd Discharge Orders/Prescriptions Prescriptions: No Action fluorometholone 0.1 % drops,suspension 1 drp OPHTHALMIC DAILY Zyrtec 10 mg capsule 10 mg PO DAILY cyanocobalamin (vitamin B-12) 1,000 mcg capsule 1,000 mcg PO DAILY FDgard 25-20.75 mg capsule 1 cap PO QHS ascorbic acid (vitamin C) 500 mg tablet 500 mg PO DAILY (DME) compress.stocking,knee,reg,lrg Misc See Rx Instructions .MEDSUPPLY Qty: 2 1RF Rx Instructions: wear daily for venous insufficiency 30-40 mmHg turmeric 400 mg capsule 400 mg PO DAILY (DME) compress.stocking,knee,reg,lrg Misc See Rx Instructions .MEDSUPPLY Qty: 2 1RF Rx Instructions: wear daily for venous insufficiency 20-30 mmHg tizanidine 4 mg tablet 4 mg PO QHS cyclosporine [Restasis] 1 DROP dropperette 1 drp EACH EYE BID vitamin B complex [B Complex-Vitamin B12] Tablet 1 tab PO DAILY cholecalciferol (vitamin D3) 25 mcg (1,000 unit) tablet 1,000 unit PO DAILY Probiotic-Digestive Enzymes 5-250 mg capsule 1 cap PO BID calcium citrate 200 mg (950 mg) Tablet 600 mg PO DAILY sennosides [Senna Laxative] 8.6 mg tablet 8.6 mg PO DAILY fiber Tablet,Chewable 1 tab PO DAILY Collagen Plus Vitamin C 125-740 mg capsule 1 cap PO DAILY tramadol 50 mg tablet 50 mg PO QHS Rx Instructions: Discontinue oxycodone. pantoprazole 40 mg tablet,delayed release (DR/EC) 40 mg PO 1200 Rx Instructions: take 1 tablet by mouth once daily buspirone 15 mg tablet 15 mg PO PRN PRN (Reason: Anxiety) Qty: 90 2RF cephalexin 500 mg capsule 2,000 mg PO BID Qty: 4 1RF Rx Instructions: Take within 1 hour prior to dental procedure Referrals / Follow Up: Soo Ladd MD [Primary Care Provider] - Disposition Disposition (needs filled in before D/C Order can be placed): Home, Self Care 12/16/22 5610<Electronically signed by Meagan Link MD>Meagan Link MD CC: Dr. Soo Ladd MD ~ Signed [facility] Work Phone: Evaluation note* Diagnosis Bladder prolapse, female, acquired- Primary Cystocele, midline Encounter for pessary maintenance Fitting and adjustment of other device Vaginal spotting Other specified noninflammatory disorder of vagina Female bladder prolapse Cystocele, midline [facility] Diagnosis Bladder prolapse, female, acquired- Primary Cystocele, midline Pessary maintenance Fitting and adjustment of other device Encounter for screening mammogram for malignant neoplasm of breast Other screening mammogram Encounter for screening for osteoporosis Special screening for osteoporosis documented in this encounter [facility] note* Diagnosis Encounter for screening for osteoporosis Special screening for osteoporosis documented in this encounter [facility] note* Diagnosis Encounter for screening mammogram for malignant neoplasm of breast Other screening mammogram documented in this encounter [facility] note* Diagnosis Onset Date Resolution Status Acute bronchitis acute Contact with or suspected ex posure to other viral communicable disease acute Health care maintenance acut e Osteopenia acute Anxiety chronic GERD (gastroesophageal reflux disease) chronic Hypertension chronic [facility] Work Phone: Evaluation note* Diagnosis Ulcerative mucositis of vagina- Primary Mucositis (ulcerative) of cervix, vagina, and vulva Vaginal irritation Unspecified noninflammatory disorder of vagina documented [facility]* Diagnosis Onset Date Resolution Status Irritant contact dermatitis due to plant acute Constipation chronic GERD (gastroesophageal reflux disease) chronic [facility] Work Phone: Evaluation note* Diagnosis Onset Date Resolution Status COVID-19 acute Facet arthritis of lumbar region acute History of total right hip arthroplasty acute Lumbar degenerative disc disease acute [facility] Work Phone: Evaluation note* Diagnosis Encounter for screening mammogram for malignant neoplasm of breast- Primary Other screening mammogram documented in this encounter [facility] note* Diagnosis Encounter for gynecological examination (general) (routine) without abnormal findings- Primary Encounter for screening mammogram for breast cancer documented in this encounter [facility] note* Diagnosis Onset Date Resolution Status Facet arthritis of lumbar region acute History of total right hip arthroplasty acute Lumbar degenerative disc disease acute Acute upper respiratory infection acute Constipation chronic GERD (gastroesophageal reflux disease) chronic Impacted cerumen, right ear acute URI (upper respiratory infection) acute Anxiety and depression chron ic Chronic back pain chronic Hypertension chronic Obesity (BMI 30-39.9) chroni c [facility] Work Phone: Evaluation note* Diagnosis Obesity, Class I, BMI 30-34.9- Primary Obesity, unspecified Gastroesophageal reflux disease with esophagitis without hemorrhage Dietary counseling Dietary surveillance and counseling [facility] Diagnosis Onset Date Resolution Status Acute upper respiratory infection acute Constipation chronic GERD (gastroesophageal reflux disease) chronic Impacted cerumen, right ear acute URI (upper respiratory infection) acute Anxiety and depression chron ic Chronic back pain chronic Hypertension chronic Obesity (BMI 30-39.9) chroni c Anxiety and depression chron ic Hypertension chronic Obesity (BMI 30-39.9) chroni c Venous insufficiency of both lower extremities [facility] Work Phone: Evaluation note* Diagnosis Female bladder prolapse- Primary Cystocele, midline Vaginal itching Pruritus of genital organs Encounter for pessary maintenance Fitting and adjustment of other device [facility] Diagnosis Onset Date Resolution Status Impacted cerumen, right ear acute URI (upper respiratory infection) acute Anxiety and depression chron ic Chronic back pain chronic Hypertension chronic Obesity (BMI 30-39.9) chroni c Anxiety and depression chron ic Hypertension chronic Obesity (BMI 30-39.9) chroni c Venous insufficiency of both lower extremities chronic Constipation chronic Hypertension [facility] Work Phone: Evaluation note* Diagnosis PMB (postmenopausal bleeding)- Primary Postmenopausal bleeding [facility] Diagnosis Overweight- Primary Gastroesophageal reflux disease with esophagitis without hemorrhage Dietary counseling Dietary surveillance and counseling [facility] Diagnosis PMB (postmenopausal bleeding)- Primary Postmenopausal bleeding [facility] Diagnosis Onset Date Resolution Status Anxiety and depression chron ic Hypertension chronic Obesity (BMI 30-39.9) chroni c Venous insufficiency of both lower extremities chronic Constipation chronic Hypertension chronic Constipation chronic Hypertension chronic Venous insufficiency of both lower extremities chronic Endometrial thickening on ultrasound acute Postmenopausal bleeding acut e [facility] Work Phone: Evaluation note* Diagnosis PMB (postmenopausal bleeding)- Primary Postmenopausal bleeding [facility] Diagnosis Overweight- Primary Gastroesophageal reflux disease with esophagitis without hemorrhage Dietary counseling Dietary surveillance and counseling [facility] Diagnosis Onset Date Resolution Status Constipation chronic Hypertension chronic Venous insufficiency of both lower extremities chronic Endometrial thickening on ultrasound acute Postmenopausal bleeding acut e RLQ abdominal pain acute Anxiety and depression chron ic Constipation chronic Hypertension [facility] Work Phone: Evaluation note* Diagnosis Overweight- Primary Gastroesophageal reflux disease with esophagitis without hemorrhage Dietary counseling Dietary surveillance and counseling documented in this encounter [facility] note* Diagnosis PMB (postmenopausal bleeding)- Primary Postmenopausal bleeding documented in this encounter [facility] note* Diagnosis Vaginal discomfort- Primary Unspecified symptom associated with female genital organs documented in this encounter [facility] note* Diagnosis Encounter for screening mammogram for breast cancer documented in this encounter [facility] note* Diagnosis Overweight- Primary Gastroesophageal reflux disease with esophagitis without hemorrhage Osteopenia, unspecified location Dietary counseling Dietary surveillance and counseling documented in this encounter [facility] note* Diagnosis Impacted cerumen of right ear- Primary Impacted cerumen documented in this encounter [facility] note* Diagnosis Vaginal irritation- Primary Unspecified noninflammatory disorder of vagina Vaginal odor Unspecified symptom associated with female genital organs documented in this encounter [facility] note* Diagnosis Encounter for gynecological examination (general) (routine) without abnormal findings- Primary Encounter for screening mammogram for breast cancer Osteopenia of lumbar spine documented in this encounter [facility] Discharge instructionsAmbulatory Orders* Dermatology Location: None [facility] Work Phone: Reason for referral (narrative)* Diagnostic Procedure Only (Routine) - Authorized Specialty Diagnoses / Procedures Referred By Ugo nieves Referred To Contact [facility] Diagnoses Encounter for screening mammogram for malignant neoplasm of breast Procedures MONAE SCREENING SCREENING MAMMOGRAPHY BI 2-VIEW BREAST INC CAD Anali Rico APRN.CNP [address] [place] [address] [facility] [address] [place] [address] Referral ID Status Reason Start Date Expiration Date Visits Requested Visits Authorized [id number] Authorized Auto-Generat ed Referral 07/12/2021 02/26/2022 1 1 [facility] for referral (narrative)* Diagnostic Procedure Only (Routine) - Closed Specialty Diagnoses / Procedures Referred By Contac t Referred To Contact [facility] Diagnoses Encounter for screening mammogram for malignant neoplasm of breast Procedures MONAE SCREENING SCREENING MAMMOGRAPHY BI 2-VIEW BREAST INC CAD Anali Rico APRN.CARTON LINER [address] [place] [address] [facility] [address] [place] [address] Referral ID Status Reason Start Date Expiration Date V isits Requested Visits Authorized [id number] Closed Auto-Generate d Referral 07/12/2021 02/26/2022 1 1 [facility] for referral (narrative)* Diagnostic Procedure Only (Routine) - Pending Review Specialty Diagnoses / Procedures Referred By Contac t Referred To Contact [facility] Diagnoses Encounter for screening mammogram for malignant neoplasm of breast Procedures MONAE SCREENING SCREENING MAMMOGRAPHY BI 2-VIEW BREAST INC CAD Anali Rico APRN.CARTON LINER [address] [place] [address] [facility] [address] [place] [address] Referral ID Status Reason Start Date Expiration Date Visits Requested Visits Authorized [id number] Pending Review Auto-Generat ed Referral 07/28/2022 08/26/2023 1 1 [facility] for referral (narrative)* Diagnostic Procedure Only (Routine) - Pending Review Specialty Diagnoses / Procedures Referred By Contac t Referred To Contact [facility] Diagnoses Encounter for screening mammogram for breast cancer Procedures MONAE SCREENING SCREENING MAMMOGRAPHY BI 2-VIEW BREAST INC CAD Anali Rico APRN.CARTON LINER [address] [place] [address] [facility] [address] [place] [address] Referral ID Status Reason Start Date Expiration Date Visits Requested Visits Authorized [id number] Pending Review Auto-Generat ed Referral 08/02/2022 09/01/2023 1 1 [facility] for referral (narrative)* Diagnostic Procedure Only (Routine) - Authorized Specialty Diagnoses / Procedures Referred By Contac t Referred To Contact [facility] Diagnoses PMB (postmenopausal bleeding) Procedures US FEMALE PELVIS TRANSVAG US TRANSVAGINAL Anali Rico APRN.CNP [address] [place] [address] [place] [address] Referral ID Status Reason Start Date Expiration Date Visits Requested Visits Authorized [id number] Authorized Auto-Generat ed Referral 11/18/2022 12/18/2023 1 1 [facility] for referral (narrative)* Diagnostic Procedure Only (Routine) - Authorized Specialty Diagnoses / Procedures Referred By Contac t Referred To Contact [facility] Diagnoses PMB (postmenopausal bleeding) Procedures US FEMALE PELVIS TRANSVAG US TRANSVAGINAL Anali Rico APRN.CNP [address] [place] [address] [place] [address] Referral ID Status Reason Start Date Expiration Date Visits Requested Visits Authorized [id number] Authorized Auto-Generat ed Referral 07/21/2023 08/19/2024 1 1 [facility] for referral (narrative)No reason for [facility] Work Phone: Reason for visit Narrative* Diagnostic Procedure Only (Routine) - Closed Specialty Diagnoses / Procedures Referred By Contac t Referred To Contact Radiology / RADIO BONE DENSITY [facility] Diagnoses Encounter for screening for osteoporosis [Z13.820] Procedures BONE DENSITY ADULT 225 Anali Rico APRN.CNP [address] [place] [address] Radio Bone Density [facility] [address] [place] [address] Referral ID Status Reason Start Date Expiration Date Visits Re quested Visits Authorized [id number] Closed 07/12/2021 02/26/2022 1 1 [facility] for visit Narrative* Diagnostic Procedure Only (Routine) - Closed Specialty Diagnoses / Procedures Referred By Contac t Referred To Contact [facility] Diagnoses Encounter for screening mammogram for malignant neoplasm of breast Procedures MONAE SCREENING SCREENING MAMMOGRAPHY BI 2-VIEW BREAST INC CAD [facility], FILM OR VIDEOTAPE EDITOR.CARTON LINER [address] [place] [address] [facility] [address] [place] [address] Referral ID Status Reason Start Date Expiration Date V isits Requested Visits Authorized [id number] Closed Auto-Generate d Referral 07/12/2021 02/26/2022 1 1 [facility] for visit Narrative* Diagnostic Procedure Only (Routine) - Closed Specialty Diagnoses / Procedures Referred By Contac t Referred To Contact [facility] Diagnoses Encounter for screening mammogram for breast cancer Procedures MONAE SCREENING SCREENING MAMMOGRAPHY BI 2-VIEW BREAST INC CAD Jacky, Anali, FILM OR VIDEOTAPE EDITOR.CARTON LINER [address] [place] [address] [facility] [address] [place] [address] Referral ID Status Reason Start Date Expiration Date V isits Requested Visits Authorized [id number] Closed Auto-Generate d Referral 08/02/2022 09/01/2023 1 1 [facility] Summary Purpose Family History No Family History Records Found Relationship Condition Age at Onset Recorded Date/T glenny Not Specified Crohn's disease Unknown sister Anemia Unknown mother Anxiety Unknown Venous thrombosis Unknown Myocardial infarction Unknown Cardiac disease Unknown Unknown Hypertension Unknown Kidney disorder Unknown Psychiatric care Unknown Disorder of respiratory system Unknown Disorder of thyroid Unknown Chronic obstructive pulmonary disease Unk nown Sleep apnea Unknown grandmother Arthritis Unknown Diabetes mellitus Unknown Cerebrovascular accident (CVA) Unknown father Diverticulitis Unknown High blood cholesterol Unknown aunt Malignant neoplasm of breast Unknown Malignant neoplasm of skin Unknown daughter Depression Unknown grandfather Myocardial infarction Unknown Advance Directives No Advanced Directives Records Found Advance Directive Response Recorded Date/ Time Advance Directives Yes March 01, 2021 12:12pm Living Will Yes March 01 12:12pm Power of Machine Buffer Yes March 01 12:12pm Advance Directive Response Recorded Date/ Time Name of Medical Power of Machine Buffer SON December 28, 2021 4:03pm Advance Directives Yes March 01, 2021 12:12pm Living Will Yes December 28 4:03pm Power of Machine Buffer Yes December 28, 2021 4:03pm Advance Directive Response Recorded Date/ Time Advance Directives Yes March 01, 2021 12:12pm Living Will Yes December 28 4:03pm Power of Machine Buffer Yes December 28, 2021 4:03pm Advance Directive Response Recorded Date/ Time Name of Medical Power of Machine Buffer SON December 12, 2022 1:11pm Advance Directives Yes March 01, 2021 12:12pm Living Will Yes December 12 1:11pm Power of Machine Buffer Yes December 12, 2022 1:11pm Advance Directive Response Recorded Date/ Time Name of Medical Power of Machine Buffer SON December 12, 2022 12:11pm Advance Directives Yes March 01, 2021 11:12am Living Will Yes December 12 12:11pm Power of Machine Buffer Yes December 12, 2022 12:11pm Advance Directive Response Recorded Date/ Time Advance Directives Yes March 01, 2021 12:12pm Advance Directive Response Recorded Date/ Time Do you have a Healthcare Power of Machine Buffer? No October 21, 2024 10:35am Advance Directives Yes March 01, 2021 12:12pm Chief Complaint and Reason for Visit Chief Complaint COVID 19 1 Y FU Reason for Visit Acute bronchitis Contact with or suspected exposure to other viral communicable disease Health care maintenance Osteopenia Anxiety GERD (gastroesophageal reflux disease) Hypertension Chief Complaint RASH ON FACE/ RIGHT ARM FU Reason for Visit Irritant contact alen matitis due to plant Constipation GERD (gastroesophageal reflux disease) Chief Complaint Sinus infection right hip/back Room 1 LUMBOSACRAL DD/RADIC/SPONDYLOSIS. RX HERE Reason for Visit COVID-19 Facet arthritis of lumbar region History of total right hip arthroplasty Lumbar degenerative disc disease Chief Complaint right hip/back Room 1 LUMBOSACRAL DD/RADIC/SPONDYLOSIS. RX HERE Sinus Pressure 6 MO FU BILAT EAR COMPLAINTS ARTHROPATHY OF LUMBAR FACET JOINT fu Reason for Visit Facet arthritis of l umbar region History of total right hip arthroplasty Lumbar degenerative disc disease Acute upper respiratory infection Constipation GERD (gastroesophageal reflux disease) Impacted cerumen, right ear URI (upper respiratory infection) Anxiety and depression Chronic back pain Hypertension Obesity (BMI 30-39.9) Chief Complaint LUMBOSACRAL DD/RADIC /SPONDYLOSIS. RX HERE Sinus Pressure 6 MO FU BILAT EAR COMPLAINTS ARTHROPATHY OF LUMBAR FACET JOINT fu 1 M FU Reason for Visit Acute upper respirat ory infection Constipation GERD (gastroesophageal reflux disease) Impacted cerumen, right ear URI (upper respiratory infection) Anxiety and depression Chronic back pain Hypertension Obesity (BMI 30-39.9) Anxiety and depression Hypertension Obesity (BMI 30-39.9) Venous insufficiency of both lower extremities Chief Complaint BILAT EAR COMPLAINTS ARTHROPATHY OF LUMBAR FACET JOINT fu 1 M FU bp medicine Reason for Visit Impacted cerumen, ri ght ear URI (upper respiratory infection) Anxiety and depression Chronic back pain Hypertension Obesity (BMI 30-39.9) Anxiety and depression Hypertension Obesity (BMI 30-39.9) Venous insufficiency of both lower extremities Constipation Hypertension Chief Complaint 1 M FU bp medicine BLOOD PRESSURE MEDS Hysteroscopy,Dilation and Curettage Reason for Visit Anxiety and depressi on Hypertension Obesity (BMI 30-39.9) Venous insufficiency of both lower extremities Constipation Hypertension Constipation Hypertension Venous insufficiency of both lower extremities Endometrial thickening on ultrasound Postmenopausal bleeding Chief Complaint BLOOD PRESSURE MEDS Hysteroscopy,Dilation and Curettage 3 M FU Reason for Visit Constipation Hypertension Venous insufficiency of both lower extremities Endometrial thickening on ultrasound Postmenopausal bleeding RLQ abdominal pain Anxiety and depression Constipation Hypertension Chief Complaint BLOOD PRESSURE MEDS Hysteroscopy,Dilation and Curettage 3 M FU RLQ ABD PAIN, CHRONIC CONSTIPATION Reason for Visit Constipation Hypertension Venous insufficiency of both lower extremities Endometrial thickening on ultrasound Postmenopausal bleeding RLQ abdominal pain Anxiety and depression Constipation Hypertension Chief Complaint Admit Date 4 M FU June 05, 2024 9:07 am COUGH, DRAINAGE,SCRATCHY THROAT June 072024 2:27pm Chronic Cough June 07, 2024 2:4 1pm Reason for Visit Admit Date Health care maintenance June 05, 2024 9:07am Anxiety June 05, 2024 9:07 am Chronic cough June 05, 2024 9:07 am Dry mouth June 05, 2024 9:07 am GERD (gastroesophageal reflux disease) A pril 2024 9:07am Hypertension June 05, 2024 9:07 am Chronic cough June 07, 2024 2:2 7pm Chief Complaint Admit Date 4 M FU June 05, 2024 9:07 am COUGH, DRAINAGE,SCRATCHY THROAT June 072024 2:27pm Chronic Cough June 07, 2024 2:4 1pm OVERDUE FOR OV July 08, 2024 12:49 pm LLQ August 01, 2024 2:07p m Reason for Visit Admit Date Health care maintenance June 05, 2024 9:07am Anxiety June 05, 2024 9:07 am Chronic cough June 05, 2024 9:07 am Dry mouth June 05, 2024 9:07 am GERD (gastroesophageal reflux disease) A pril 2024 9:07am Hypertension June 05, 2024 9:07 am Chronic cough June 07, 2024 2:2 7pm Constipation July 08, 2024 12:49 pm Chief Complaint Admit Date 4 M FU June 05, 2024 9:07 am COUGH, DRAINAGE,SCRATCHY THROAT June 072024 2:27pm Chronic Cough June 07, 2024 2:4 1pm OVERDUE FOR OV July 08, 2024 12:49 pm LLQ August 01, 2024 2:07p m Test Result August 13, 2024 1:59 pm Chief Complaint Admit Date 4 M FU June 05, 2024 9:07 am COUGH, DRAINAGE,SCRATCHY THROAT June 072024 2:27pm Chronic Cough June 07, 2024 2:4 1pm OVERDUE FOR OV July 08, 2024 12:49 pm LLQ August 01, 2024 2:07p m Test Result August 13, 2024 1:59 pm 4 M FU October 03, 2024 2:0 0pm Reason for Visit Admit Date Health care maintenance June 05, 2024 9:07am Anxiety June 05, 2024 9:07 am Chronic cough June 05, 2024 9:07 am Dry mouth June 05, 2024 9:07 am GERD (gastroesophageal reflux disease) A pril 2024 9:07am Hypertension June 05, 2024 9:07 am Chronic cough June 07, 2024 2:2 7pm Constipation July 08, 2024 12:49 pm RLQ abdominal pain August 13, 2024 1:59 pm Constipation August 13, 2024 1:59 pm Chief Complaint Admit Date OVERDUE FOR OV July 08, 2024 12:49 pm LLQ August 01, 2024 2:07p m Test Result August 13, 2024 1:59 pm 4 M FU October 03, 2024 2:0 0pm abd pain October 21, 2024 8: 44am Reason for Visit Admit Date Constipation July 08, 2024 12:49 pm RLQ abdominal pain August 13, 2024 1:59 pm Constipation August 13, 2024 1:59 pm Change in skin mole October 03, 2024 2:0 0pm Anxiety and depression October 03, 2024 2:00pm Constipation October 03, 2024 2:0 0pm Dry mouth October 03, 2024 2:0 0pm Fatigue October 03, 2024 2:0 0pm Hypertension October 03, 2024 2:0 0pm Lumbar radiculopathy October 03, 2024 2: 00pm Osteopenia with high risk of fracture [facility] 2024 2:00pm Chief Complaint Admit Date OVERDUE FOR OV July 08, 2024 12:49 pm LLQ August 01, 2024 2:07p m Test Result August 13, 2024 1:59 pm 4 M FU October 03, 2024 2:0 0pm abd pain October 21, 2024 8: 44am [facility]UTE [facility] FU November 01, 2024 3:22pm Reason for Visit Admit Date Constipation July 08, 2024 12:49 pm RLQ abdominal pain August 13, 2024 1:59 pm Constipation August 13, 2024 1:59 pm Change in skin mole October 03, 2024 2:0 0pm Anxiety and depression October 03, 2024 2:00pm Constipation October 03, 2024 2:0 0pm Dry mouth October 03, 2024 2:0 0pm Fatigue October 03, 2024 2:0 0pm Hypertension October 03, 2024 2:0 0pm Lumbar radiculopathy October 03, 2024 2: 00pm Osteopenia with high risk of fracture [facility] 2024 2:00pm Colitis November 01, 2024 3:22pm Chief Complaint Admit Date LLQ August 01, 2024 2:07p m Test Result August 13, 2024 1:59 pm 4 M FU October 03, 2024 2:0 0pm abd pain October 21, 2024 8: 44am ACUTE [facility] FU November 01, 2024 3:22pm INT LABS TWO O[employer]ING [employer] FRIEND Edwardo LADD November 04, 2024 2:25pm E ORDERS November 07, 2024 10:52am INT ORDER FOR SPECIMEN November 11, 2 025 1:42pm Reason for Visit Admit Date RLQ abdominal pain August 13, 2024 1:59 pm Constipation August 13, 2024 1:59 pm Change in skin mole October 03, 2024 2:0 0pm Anxiety and depression October 03, 2024 2:00pm Constipation October 03, 2024 2:0 0pm Dry mouth October 03, 2024 2:0 0pm Fatigue October 03, 2024 2:0 0pm Hypertension October 03, 2024 2:0 0pm Lumbar radiculopathy October 03, 2024 2: 00pm Osteopenia with high risk of fracture [facility] 20[facility] 2:00pm Colitis November 01, 2024 3:22pm Additional Source Comments INFORMATION SOURCE (unrecogn ized section and content) DATE CREATED AUTHOR 08/23/2017 [facility] DATE CREATED AUTHOR AUTHOR'S ORGANIZ ATION 03/03/2018 [facility] [facility] DATE CREATED AUTHOR AUTHOR'S ORGANIZ ATION 01/04/2019 [employer] [facility] ([place]) DATE CREATED AUTHOR AUTHOR'S ORGANIZ ATION 09/18/2019 [facility] DATE CREATED AUTHOR AUTHOR'S ORGANIZ ATION 11/07/2019 [facility] DATE CREATED AUTHOR AUTHOR'S ORGANIZ ATION 12/05/2024 [facility] DATE CREATED AUTHOR AUTHOR'S ORGANIZ ATION 12/09/2024 [facility] Source Comments (unrecognize d section and content) In the event this informatio n is protected by the Federal Confidentiality of Alcohol and Drug Abuse Patient Records regulations: The Federal rules restrict any use of the information to criminally investigate or prosecute any alcohol or drug abuse patient.[facility] the event this information is protected by the Federal Confidentiality of Alcohol and Drug Abuse Patient Records regulations: The Federal rules restrict any use of the information to criminally investigate or prosecute any alcohol or drug abuse patient.[facility] HospitalIn the event this information is protected by the Federal Confidentiality of Alcohol and Drug Abuse Patient Records regulations: The Federal rules restrict any use of the information to criminally investigate or prosecute any alcohol or drug abuse patient.[facility] HospitalIn the event this information is protected by the Federal Confidentiality of Alcohol and Drug Abuse Patient Records regulations: The Federal rules restrict any use of the information to criminally investigate or prosecute any alcohol or drug abuse patient.[facility] HospitalIn the event this information is protected by the Federal Confidentiality of Alcohol and Drug Abuse Patient Records regulations: The Federal rules restrict any use of the information to criminally investigate or prosecute any alcohol or drug abuse patient.[facility] HospitalIn the event this information is protected by the Federal Confidentiality of Alcohol and Drug Abuse Patient Records regulations: The Federal rules restrict any use of the information to criminally investigate or prosecute any alcohol or drug abuse patient.[facility] HospitalIn the event this information is protected by the Federal Confidentiality of Alcohol and Drug Abuse Patient Records regulations: The Federal rules restrict any use of the information to criminally investigate or prosecute any alcohol or drug abuse patient.[facility] HospitalIn the event this information is protected by the Federal Confidentiality of Alcohol and Drug Abuse Patient Records regulations: The Federal rules restrict any use of the information to criminally investigate or prosecute any alcohol or drug abuse patient.[facility] HospitalIn the event this information is protected by the Federal Confidentiality of Alcohol and Drug Abuse Patient Records regulations: The Federal rules restrict any use of the information to criminally investigate or prosecute any alcohol or drug abuse patient.[facility] HospitalIn the event this information is protected by the Federal Confidentiality of Alcohol and Drug Abuse Patient Records regulations: The Federal rules restrict any use of the information to criminally investigate or prosecute any alcohol or drug abuse patient.[facility] HospitalIn the event this information is protected by the Federal Confidentiality of Alcohol and Drug Abuse Patient Records regulations: The Federal rules restrict any use of the information to criminally investigate or prosecute any alcohol or drug abuse patient.[facility] HospitalIn the event this information is protected by the Federal Confidentiality of Alcohol and Drug Abuse Patient Records regulations: The Federal rules restrict any use of the information to criminally investigate or prosecute any alcohol or drug abuse patient.[facility] HospitalIn the event this information is protected by the Federal Confidentiality of Alcohol and Drug Abuse Patient Records regulations: The Federal rules restrict any use of the information to criminally investigate or prosecute any alcohol or drug abuse patient.[facility] HospitalIn the event this information is protected by the Federal Confidentiality of Alcohol and Drug Abuse Patient Records regulations: The Federal rules restrict any use of the information to criminally investigate or prosecute any alcohol or drug abuse patient.[facility] HospitalIn the event this information is protected by the Federal Confidentiality of Alcohol and Drug Abuse Patient Records regulations: The Federal rules restrict any use of the information to criminally investigate or prosecute any alcohol or drug abuse patient.[facility] HospitalIn the event this information is protected by the Federal Confidentiality of Alcohol and Drug Abuse Patient Records regulations: The Federal rules restrict any use of the information to criminally investigate or prosecute any alcohol or drug abuse patient.[facility] HospitalIn the event this information is protected by the Federal Confidentiality of Alcohol and Drug Abuse Patient Records regulations: The Federal rules restrict any use of the information to criminally investigate or prosecute any alcohol or drug abuse patient.[facility] HospitalIn the event this information is protected by the Federal Confidentiality of Alcohol and Drug Abuse Patient Records regulations: The Federal rules restrict any use of the information to criminally investigate or prosecute any alcohol or drug abuse patient.[facility] HospitalIn the event this information is protected by the Federal Confidentiality of Alcohol and Drug Abuse Patient Records regulations: The Federal rules restrict any use of the information to criminally investigate or prosecute any alcohol or drug abuse patient.[facility] HospitalIn the event this information is protected by the Federal Confidentiality of Alcohol and Drug Abuse Patient Records regulations: The Federal rules restrict any use of the information to criminally investigate or prosecute any alcohol or drug abuse patient.[facility] HospitalIn the event this information is protected by the Federal Confidentiality of Alcohol and Drug Abuse Patient Records regulations: The Federal rules restrict any use of the information to criminally investigate or prosecute any alcohol or drug abuse patient.[facility] HospitalIn the event this information is protected by the Federal Confidentiality of Alcohol and Drug Abuse Patient Records regulations: The Federal rules restrict any use of the information to criminally investigate or prosecute any alcohol or drug abuse patient.[facility] HospitalIn the event this information is protected by the Federal Confidentiality of Alcohol and Drug Abuse Patient Records regulations: The Federal rules restrict any use of the information to criminally investigate or prosecute any alcohol or drug abuse patient.[facility] HospitalIn the event this information is protected by the Federal Confidentiality of Alcohol and Drug Abuse Patient Records regulations: The Federal rules restrict any use of the information to criminally investigate or prosecute any alcohol or drug abuse patient.[facility] HospitalIn the event this information is protected by the Federal Confidentiality of Alcohol and Drug Abuse Patient Records regulations: The Federal rules restrict any use of the information to criminally investigate or prosecute any alcohol or drug abuse patient.[facility] HospitalIn the event this information is protected by the Federal Confidentiality of Alcohol and Drug Abuse Patient Records regulations: The Federal rules restrict any use of the information to criminally investigate or prosecute any alcohol or drug abuse patient.[facility] HospitalIn the event this information is protected by the Federal Confidentiality of Alcohol and Drug Abuse Patient Records regulations: The Federal rules restrict any use of the information to criminally investigate or prosecute any alcohol or drug abuse patient.[facility] HospitalIn the event this information is protected by the Federal Confidentiality of Alcohol and Drug Abuse Patient Records regulations: The Federal rules restrict any use of the information to criminally investigate or prosecute any alcohol or drug abuse patient.[facility] HospitalIn the event this information is protected by the Federal Confidentiality of Alcohol and Drug Abuse Patient Records regulations: The Federal rules restrict any use of the information to criminally investigate or prosecute any alcohol or drug abuse patient.[facility] HospitalIn the event this information is protected by the Federal Confidentiality of Alcohol and Drug Abuse Patient Records regulations: The Federal rules restrict any use of the information to criminally investigate or prosecute any alcohol or drug abuse patient.[facility] HospitalIn the event this information is protected by the Federal Confidentiality of Alcohol and Drug Abuse Patient Records regulations: The Federal rules restrict any use of the information to criminally investigate or prosecute any alcohol or drug abuse patient.[facility] HospitalIn the event this information is protected by the Federal Confidentiality of Alcohol and Drug Abuse Patient Records regulations: The Federal rules restrict any use of the information to criminally investigate or prosecute any alcohol or drug abuse patient.[facility] HospitalIn the event this information is protected by the Federal Confidentiality of Alcohol and Drug Abuse Patient Records regulations: The Federal rules restrict any use of the information to criminally investigate or prosecute any alcohol or drug abuse patient.[facility] HospitalIn the event this information is protected by the Federal Confidentiality of Alcohol and Drug Abuse Patient Records regulations: The Federal rules restrict any use of the information to criminally investigate or prosecute any alcohol or drug abuse patient.[facility] HospitalIn the event this information is protected by the Federal Confidentiality of Alcohol and Drug Abuse Patient Records regulations: The Federal rules restrict any use of the information to criminally investigate or prosecute any alcohol or drug abuse patient.[facility] HospitalIn the event this information is protected by the Federal Confidentiality of Alcohol and Drug Abuse Patient Records regulations: The Federal rules restrict any use of the information to criminally investigate or prosecute any alcohol or drug abuse patient.[facility] HospitalIn the event this information is protected by the Federal Confidentiality of Alcohol and Drug Abuse Patient Records regulations: The Federal rules restrict any use of the information to criminally investigate or prosecute any alcohol or drug abuse patient.[facility] Reason for Visit (unrecogniz ed section and content) Reason Comments pessary check pt reports some blee ding Specialty Diagnoses / Procedures Referred By Contac t Referred To Contact Gynecology / PLANER OPERATOR / GRADER Diagnoses 3 month pessary maintenance Procedures [facility] PATIENT Anali Rico APRN.CARTON LINER [address] [place] [address] Anali Rico APRN.CARTON LINER [address] [place] [address] Referral ID Status Reason Start Date Expiration Date V isits Requested Visits Authorized [id number] Closed Financial Clearance Required - OON Payor Patient Cleared INN/SMCP Payor Auth Obtained 06/03/2021 02/26/2022 1 1 Reason Comments Results Reason Comments Pessary Specialty Diagnoses / Procedures Referred By Contac t Referred To Contact Gynecology / PLANER OPERATOR / GRADER Diagnoses Pessary Check Procedures [facility] PATIENT Self [place]Anali guillen, FILM OR VIDEOTAPE EDITOR.CARTON LINER [address] [place] [place] [address] Referral ID Status Reason Start Date Expiration Date Visits Re quested Visits Authorized [id number] Closed 06/24/2021 02/26/2022 1 1 Reason Comments Patient Question Reason Comments Pessary Reason Comments Yearly Exam Reason Comments Patient Education Assessment Reason Comments Patient Education Reassessment Reason Comments Pessary check Reason Comments Vaginal Bleeding Reason Comments Pessary Has bleeding off and on for the last 3-4 day- more then spotting Reason Comments Post Menopausal Bleeding Reason Comments Reassessment Patient Education Reason Comments PMB Reason Comments Rectal Problem x1 week painful and itchy Reason Comments Ear Problem RIGHT ear feels clog ged with LEFT ear starting with pain x 1+ week Reason Comments Problem Visit Reason Comments [facility] Teams (unrecognized sec tion and content) Timber Estimator Relationship Specialty Start Date End Date Anali Randolph Kena PCP - General Family Practice 07/01/15 Timber Estimator Relationship Specialty Start Date End Date Anali Randolph Kena PCP - General Family Practice 07/01/15 Timber Estimator Relationship Specialty Start Date End Date Anali Randolph Kena PCP - General Family Practice 07/01/15 Timber Estimator Relationship Specialty Start Date End Date Anali Randolph Kena PCP - General Family Practice 07/01/15 Timber Estimator Relationship Specialty Start Date End Date Anali Randolph Kena PCP - General Family Practice 07/01/15 Timber Estimator Relationship Specialty Start Date End Date Anali Randolph Kena PCP - General Family Practice 07/01/15 Timber Estimator Relationship Specialty Start Date End Date Anali Randolph Kena PCP - General Family Practice 07/01/15 Timber Estimator Relationship Specialty Start Date End Date Anali Randolph Kena PCP - General Family Medicine 07/01/15 Timber Estimator Relationship Specialty Start Date End Date [facility] - [facility] 07/01/15 Timber Estimator Relationship Specialty Start Date End Date Tomasa, [facility] PCP - General Family Medicine 07/01/15 Team Status: Active Member Role Status Dates Dr. Soo Ladd MD Family Provider Active Dr. Soo Ladd MD Primary Care Provider Active Team Status: Inactive Member Role Status Dates Dr. Soo Ladd MD Primary Care Provider, Refer ring Provider Active Jonah Moreno BEHAVIOR MANAGEMENT SPECIALIST, BEHAVIOR MANAGEMENT SPECIALIST-C Attending Provider Active Team Status: Inactive Member Role Status Dates Dr. Soo Ladd MD Primary Care Provider, Refer ring Provider Active Dr. Jean-Paul Alaniz DO Attending Provider Active Team Status: Inactive Member Role Status Dates Dr. Soo Ladd MD Primary Care Provider Active Dr. Uday Olivares MD Attending Provider Active Team Status: Inactive Member Role Status Dates Dr. Soo Ladd MD Primary Care Provider Active Kylah Solano BEHAVIOR MANAGEMENT SPECIALIST, BEHAVIOR MANAGEMENT SPECIALIST-C Attending Provider, Referring Pr ovider Active Dr. Jean-Paul Alaniz DO Other Provider Active Timber Estimator Relationship Specialty Start Date End Date Tomasa, [facility] PCP - General Family Medicine 07/01/15 Timber Estimator Relationship Specialty Start Date End Date [facility] PCP - General Family Medicine 07/01/15 Team Status: Inactive Member Role Status Dates Dr. Soo Ladd MD Primary Care Provider, Refer ring Provider Active Meagan Morales BEHAVIOR MANAGEMENT SPECIALIST, BEHAVIOR MANAGEMENT SPECIALIST-C Attending Provider Active Team Status: Inactive Member Role Status Dates Dr. Soo Ladd MD Primary Care Provider, Refer ring Provider Active Collin Solano PA, PA Attending Provider Active Team Status: Inactive Member Role Status Dates Dr. Soo Ladd MD Primary Care P milagro, Attending Provider, Referring Provider Active Team Status: Inactive Member Role Status Dates Dr. Soo Ladd MD Primary Care Provider, Refer ring Provider Active Igor COBB, PA Attending Provider Active Team Status: Inactive Member Role Status Dates Dr. Soo Ladd MD Primary Care Provider Active Dedra Greene BEHAVIOR MANAGEMENT SPECIALIST-C Attending Provider, Referring Pro vider Active Team Status: Inactive Member Role Status Dates Dr. Soo Ladd MD Primary Care Provider, Atten ding Provider Active Timber Estimator Relationship Specialty Start Date End Date Tomasa, Anali Kena PCP - General Family Medicine 07/01/15 Team Status: Inactive Member Role Status Dates Dr. Soo Ladd MD Primary Care Provider Active Brendon COBB, PA Attending Provider, Referring Provi alen Active Timber Estimator Relationship Specialty Start Date End Date Tomasa, Anali Kena PCP - General Family Medicine 07/01/15 Timber Estimator Relationship Specialty Start Date End Date Tomasa, Anali Kena PCP - General Family Medicine 07/01/15 Timber Estimator Relationship Specialty Start Date End Date Tomasa, Anali Kena PCP - General Family Medicine 07/01/15 Timber Estimator Relationship Specialty Start Date End Date Tomasa, Anali Kena PCP - General Family Medicine 07/01/15 Timber Estimator Relationship Specialty Start Date End Date Tomasa, Anali Kena PCP - General Family Medicine 07/01/15 Timber Estimator Relationship Specialty Start Date End Date Tomasa, Anali Kena PCP - General Family Medicine 07/01/15 Team Status: Inactive Member Role Status Dates Dr. Soo Ladd MD Primary Care Provider Active Dr. Meagan Link MD Attending Provider Active Timber Estimator Relationship Specialty Start Date End Date Anali Randolph Kena (Fax) PCP - General Family Medicine 07/01/15 Timber Estimator Relationship Specialty Start Date End Date TomasaAnali saez Kena (Fax) PCP - General Family Medicine 07/01/15 Timber Estimator Relationship Specialty Start Date End Date Tomasa, Anali Kena (Fax) PCP - General Family Medicine 07/01/15 Timber Estimator Relationship Specialty Start Date End Date Soo Ladd MD [address] [place] [address] PCP - General Internal Medicine 08/18/23 Timber Estimator Relationship Specialty Start Date End Date Soo Ladd MD [address] [place] [address] PCP - General Internal Medicine 08/18/23 Timber Estimator Relationship Specialty Start Date End Date Soo Ladd MD [address] [place] [address] (Fax) PCP - General Internal Medicine 08/18/23 Timber Estimator Relationship Specialty Start Date End Date Soo Ladd MD [address] [place] [address] (Fax) PCP - General Internal Medicine 08/18/23 Timber Estimator Relationship Specialty Start Date End Date Soo Ladd MD [address] [place] [address] (Fax) PCP - General Internal Medicine 08/18/23 Timber Estimator Relationship Specialty Start Date End Date Soo Ladd MD [address] [place] [address] PCP - General Internal Medicine 08/18/23 Timber Estimator Relationship Specialty Start Date End Date Soo Ladd MD [address] [place] [address] PCP - General Internal Medicine 08/18/23 Team Status: Inactive Member Role Status Dates Dr. Soo Ladd MD Primary Care Provider Active Start: June 05, 2024 End: June 05, 2024 Dr. Soo Ladd MD Attending Provider Active Start: June 05, 2024 End: June 05, 2024 Dr. Soo Ladd MD Referring Provider Active Start: June 05, 2024 End: June 05, 2024 Team Status: Inactive Member Role Status Dates Dr. Soo Ladd MD Primary Care Provider Active Start: June 07, 2024 End: June 07, 2024 Dr. Soo Ladd MD Referring Provider Active Start: June 07, 2024 End: June 07, 2024 JORDYN Nunez Attending Provider Active Sta rt: June 07, 2024 End: June 07, 2024 Team Status: Active Member Role Status Dates Dr. Soo Ladd MD Primary Care Provider Active Start: June 07, 2024 Dr. Soo Ladd MD Attending Provider Active Start: June 07, 2024 Dr. Soo Ladd MD Referring Provider Active Start: June 07, 2024 Team Status: Inactive Member Role Status Dates Dr. Soo Ladd MD Primary Care Provider Active Start: June 07, 2024 End: June 07, 2024 Dr. Soo Ladd MD Attending Provider Active Start: June 07, 2024 End: June 07, 2024 Dr. Soo Ladd MD Referring Provider Active Start: June 07, 2024 End: June 07, 2024 Timber Estimator Relationship Specialty Start Date End Date Soo Ladd MD [address] [place] [address] PCP - General Internal Medicine 08/18/23 Team Status: Active Member Role Status Dates Dr. Soo Ladd MD Primary Care Provider Active Team Status: Inactive Member Role Status Dates Dr. Soo Ladd MD Primary Care Provider Active Start: July 08, 2024 End: July 08, 2024 Dr. Soo Ladd MD Referring Provider Active Start: July 08, 2024 End: July 08, 2024 FLORIAN Javed Attending Provider Active S tart: July 08, 2024 End: July 08, 2024 Team Status: Inactive Member Role Status Dates Dr. Soo Ladd MD Primary Care Provider Active Start: August 01, 2024 End: August 01, 2024 FLORIAN Javed Attending Provider Active S tart: August 01, 2024 End: August 01, 2024 FLORIAN Javed Referring Provider Active S tart: August 01, 2024 End: August 01, 2024 Team Status: Inactive Member Role Status Dates Dr. Soo Ladd MD Primary Care Provider Active Start: August 13, 2024 End: August 13, 2024 Dr. Soo Ladd MD Referring Provider Active Start: August 13, 2024 End: August 13, 2024 FLORIAN Javed Attending Provider Active S tart: August 13, 2024 End: August 13, 2024 Team Status: Active Member Role/Relationship Status Dates Dr. Soo Ladd MD Primary Care Provider Active Team Status: Inactive Member Role/Relationship Status Dates Dr. Soo Ladd MD Primary Care Provider Active Start: June 05, 2024 End: June 05, 2024 Dr. Soo Ladd MD Attending Provider Active Start: June 05, 2024 End: June 05, 2024 Dr. Soo Ladd MD Referring Provider Active Start: June 05, 2024 End: June 05, 2024 Team Status: Inactive Member Role/Relationship Status Dates Dr. Soo Ladd MD Primary Care Provider Active Start: June 05, 2024 End: June 05, 2024 Dr. Soo Ladd MD Attending Provider Active Start: June 05, 2024 End: June 05, 2024 Dr. Soo Ladd MD Referring Provider Active Start: June 05, 2024 End: June 05, 2024 Team Status: Inactive Member Role/Relationship Status Dates Dr. Soo Ladd MD Primary Care Provider Active Start: June 07, 2024 End: June 07, 2024 Dr. Soo Ladd MD Referring Provider Active Start: June 07, 2024 End: June 07, 2024 JORDYN Nunez Attending Provider Active Sta rt: June 07, 2024 End: June 07, 2024 Team Status: Inactive Member Role/Relationship Status Dates Dr. Soo Ladd MD Primary Care Provider Active Start: June 07, 2024 End: June 07, 2024 Dr. Soo Ladd MD Attending Provider Active Start: June 07, 2024 End: June 07, 2024 Dr. Soo Ladd MD Referring Provider Active Start: June 07, 2024 End: June 07, 2024 Team Status: Inactive Member Role/Relationship Status Dates Dr. Soo Ladd MD Primary Care Provider Active Start: July 08, 2024 End: July 08, 2024 Dr. Soo Ladd MD Referring Provider Active Start: July 08, 2024 End: July 08, 2024 FLORIAN Javed Attending Provider Active S tart: July 08, 2024 End: July 08, 2024 Team Status: Inactive Member Role/Relationship Status Dates Dr. Soo Ladd MD Primary Care Provider Active Start: August 01, 2024 End: August 01, 2024 FLORIAN Javed Attending Provider Active S tart: August 01, 2024 End: August 01, 2024 FLORIAN Javed Referring Provider Active S tart: August 01, 2024 End: August 01, 2024 Team Status: Inactive Member Role/Relationship Status Dates Dr. Soo Ladd MD Primary Care Provider Active Start: August 13, 2024 End: August 13, 2024 Dr. Soo Ladd MD Referring Provider Active Start: August 13, 2024 End: August 13, 2024 FLORIAN Javed Attending Provider Active S tart: August 13, 2024 End: August 13, 2024 Team Status: Inactive Member Role/Relationship Status Dates Dr. Soo Ladd MD Primary Care Provider Active Start: August 27, 2024 Dr. Jena Chawla MD Attending Provider Active Start: August 27, 2024 Team Status: Inactive Member Role/Relationship Status Dates Dr. Soo Ladd MD Primary Care Provider Active Start: October 03, 2024 End: October 03, 2024 Dr. Soo Ladd MD Attending Provider Active Start: October 03, 2024 End: October 03, 2024 Dr. Soo Ladd MD Referring Provider Active Start: October 03, 2024 End: October 03, 2024 Team Status: Inactive Member Role/Relationship Status Dates Dr. Soo Ladd MD Primary Care Provider Active Start: July 08, 2024 End: July 08, 2024 Dr. Soo Ladd MD Referring Provider Active Start: July 08, 2024 End: July 08, 2024 FLORIAN Javed Attending Provider Active S tart: July 08, 2024 End: July 08, 2024 Team Status: Inactive Member Role/Relationship Status Dates Dr. Soo Ladd MD Primary Care Provider Active Start: August 01, 2024 End: August 01, 2024 FLORIAN Javed Attending Provider Active S tart: August 01, 2024 End: August 01, 2024 FLORIAN Javed Referring Provider Active S tart: August 01, 2024 End: August 01, 2024 Team Status: Inactive Member Role/Relationship Status Dates Dr. Soo Ladd MD Primary Care Provider Active Start: August 13, 2024 End: August 13, 2024 Dr. Soo Ladd MD Referring Provider Active Start: August 13, 2024 End: August 13, 2024 FLORIAN Javed Attending Provider Active S tart: August 13, 2024 End: August 13, 2024 Team Status: Inactive Member Role/Relationship Status Dates Dr. Soo Ladd MD Primary Care Provider Active Start: August 27, 2024 Dr. Jena Chawla MD Attending Provider Active Start: August 27, 2024 Team Status: Inactive Member Role/Relationship Status Dates Dr. Soo Ladd MD Primary Care Provider Active Start: October 03, 2024 End: October 03, 2024 Dr. Soo Ladd MD Attending Provider Active Start: October 03, 2024 End: October 03, 2024 Dr. Soo Ladd MD Referring Provider Active Start: October 03, 2024 End: October 03, 2024 Team Status: Inactive Member Role/Relationship Status Dates Dr. Soo Ladd MD Primary Care Provider Active Start: October 21, 2024 End: October 21, 2024 Dr. Marcos Valenzuela DO Emergency Provider Active Start: October 21, 2024 End: October 21, 2024 Team Status: Inactive Member Role/Relationship Status Dates Dr. Soo Ladd MD Primary Care Provider Active Start: October 21, 2024 End: October 21, 2024 Dr. Marcos Valenzuela DO Attending Provider Active Start: October 21, 2024 End: October 21, 2024 Dr. Marcos Valenzuela DO Emergency Provider Active Start: October 21, 2024 End: October 21, 2024 Team Status: Inactive Member Role/Relationship Status Dates Dr. Soo Ladd MD Primary Care Provider Active Start: November 01, 2024 End: November 01, 2024 Dr. Soo Ladd MD Referring Provider Active Start: November 01, 2024 End: November 01, 2024 JORDYN Alexandra Attending Provider Active St art: November 01, 2024 End: November 01, 2024 Team Status: Active Member Role/Relationship Status Dates Dr. Soo Ladd MD Primary care physician Activ e Team Status: Inactive Member Role/Relationship Status Dates Dr. Soo Ladd MD Primary care physician Activ e Start: August 01, 2024 End: August 01, 2024 FLORIAN Javed Attending physician Active Start: August 01, 2024 End: August 01, 2024 FLORIAN Javed Referring Provider Active S tart: August 01, 2024 End: August 01, 2024 Team Status: Inactive Member Role/Relationship Status Dates Dr. Soo Ladd MD Primary care physician Activ e Start: August 13, 2024 End: August 13, 2024 Dr. Soo Ladd MD Referring Provider Active Start: August 13, 2024 End: August 13, 2024 FLORIAN Javed Attending physician Active Start: August 13, 2024 End: August 13, 2024 Team Status: Inactive Member Role/Relationship Status Dates Dr. Soo Ladd MD Primary care physician Activ e Start: August 27, 2024 Dr. Jena Chawla MD Attending physician Active Start: August 27, 2024 Team Status: Inactive Member Role/Relationship Status Dates Dr. Soo Ladd MD Primary care physician Activ e Start: October 03, 2024 End: October 03, 2024 Dr. Soo Ladd MD Attending physician Active Start: October 03, 2024 End: October 03, 2024 Dr. Soo Ladd MD Referring Provider Active Start: October 03, 2024 End: October 03, 2024 Team Status: Inactive Member Role/Relationship Status Dates Dr. Soo Ladd MD Primary care physician Activ e Start: October 21, 2024 End: October 21, 2024 Dr. Marcos Valenzuela DO Attending physician Active Start: October 21, 2024 End: October 21, 2024 Dr. Marcos Valenzuela DO Emergency Depart ent Physician Active Start: October 21, 2024 End: October 21, 2024 Team Status: Inactive Member Role/Relationship Status Dates Dr. Soo Ladd MD Primary care physician Activ e Start: November 01, 2024 End: November 01, 2024 Dr. Soo Ladd MD Referring Provider Active Start: November 01, 2024 End: November 01, 2024 JORDYN Alexandra Attending physician Active S tart: November 01, 2024 End: November 01, 2024 Team Status: Inactive Member Role/Relationship Status Dates Dr. Soo Ladd MD Primary care physician Activ e Start: November 04, 2024 End: November 04, 2024 Dr. Vinicius Ross DO Attending physician Active Start: November 04, 2024 End: November 04, 2024 Dr. Vinicius Ross DO Referring Provider Active Start: November 04, 2024 End: November 04, 2024 Team Status: Inactive Member Role/Relationship Status Dates Dr. Soo Ladd MD Primary care physician Activ e Start: November 07, 2024 End: November 07, 2024 Dr. Vinicius Ross DO Attending physician Active Start: November 07, 2024 End: November 07, 2024 Dr. Vinicius Ross DO Referring Provider Active Start: November 07, 2024 End: November 07, 2024 Team Status: Inactive Member Role/Relationship Status Dates Dr. Soo Ladd MD Primary care physician Activ e Start: November 11, 2024 End: November 11, 2024 Dr. Vinicius Ross DO Attending physician Active Start: November 11, 2024 End: November 11, 2024 Dr. Vinicius Ross DO Referring Provider Active Start: November 11, 2024 End: November 11, 2024 Goals (unrecognized section and content) Goals may be documented in a n alternate sectionGoals may be documented in an alternate sectionGoals may be documented in an alternate sectionGoals may be documented in an alternate sectionGoals may be documented in an alternate sectionGoals may be documented in an alternate sectionGoals may be documented in an alternate sectionGoals may be documented in an alternate sectionGoals may be documented in an alternate sectionGoals may be documented in an alternate sectionGoals may be documented in an alternate sectionGoals may be documented in an alternate sectionGoals may be documented in an alternate sectionGoals may be documented in an alternate sectionGoals may be documented in an alternate section FOR RECORDS PERTAINING TO PATIENTS WHO ARE OR HAVE BEEN ENROLLED IN A CHEMICAL DEPENDENCY/SUBSTANCEABUSE PROGRAM, SOME INFORMATION MAY BE OMITTED. This clinical summary was aggregated from multiple sources. Caution should be exercised in using it in the provision of clinical care. This summary normalizes information from multiple sources, and as a consequence, information in this document may materially change the coding, format and clinical context of patient data. In addition, data may be omitted in some cases. CLINICAL DECISIONS SHOULD BE BASED ON THE PRIMARY CLINICAL RECORDS. [facility] provides no warranty or guarantee of the accuracy or completeness of information in this document.
== END | disposition home or self-care (01) ==
LOC: CT 16:50
PROVIDERS: PCP Internal Medicine; Referring Provider Student in an Organized Health Care Education/Training Program; Visit Provider Student in an Organized Health Care Education/Training Program
DX: R10.31 Right lower quadrant pain (principal); K52.9 Noninfective gastroenteritis and colitis, unspecified
CPT/HCPCS: 74177; Q9967